=== PATIENT | female | born 1940 | race Caucasian/White ===

== ENCOUNTER → 2016-06-28 | Outpatient (CLI) | payer OTHER, MEDICARE ==
[~2016-06-28] MED LIST: ADVIN25/60 INH; ALBINS/ INH; ALEN70TA4 PO; AMLO-110 PO; AMLO2.5T2 PO; ASPI325T39 PO; ATRINS NEB; CARV25TA PO; CEFU500T16 PO; CHOL1000 PO; CHOL20005 PO; CIPR-255 PO; CLB100 PO; DICY10CA55 PO; DICY20TA35 PO; DOCU100C PO; DOXY100T PO; ENOX40IN SQ; FERR1TAB28 PO; FERR325T PO; FERR325T51 PO; FLVHFA220 INH; FURO-85 PO; HYDR-3126 PO; HYDR4TAB2 PO; HYDR4TAB78 PO; LEVO100T PO; LEVO112T2 PO; LISI10TA PO; LORA-741 PO; LSN40 PO; LVNIS40 SQ; MECL1TAB42 PO; MRLP17 PO; MRP25 PO; MRPSR30 PO; MULT-589 PO; NCDT21X TD; NF656 TD; NYSS5 PO; NYST100010 TOP; ONDA4TAB10 SL; ONDA8TAB7 PO; ORTHO WARFARIN NOMOGRAM; PANT40TA PO; POLY335019 PO; PRED20TA2 PO; PRVHFAIN INH; RANI300T2 PO; SERT50TA PO; SIMV20TA2 PO; SNK PO; WARF10TA4 PO; [UNRECOGNIZED DRUG - CODE] PO; [UNRECOGNIZED DRUG - CODE] TOP
[2016-06-28 13:53] LABS: ESTIMATED AVERAGE GLUCOSE 120 mg/dl; HA1C FLAG Normal (Normal)
[2016-06-28 14:02] LABS: ALT/SGPT 17 U/L (12-78); BLOOD UREA NITROGEN 7 mg/dl (7-18); BUN/CREATININE RATIO 10.7 (10-20); CALCIUM 8.9 mg/dl (8.5-10.1); CARBON DIOXIDE 32 mmol/L (21-32); CHLORIDE 100 mmol/L (98-107); CHOLESTEROL 166 mg/dl (0-200); CREATININE 0.67 mg/dl (0.60-1.20); GLUCOSE 108 mg/dl (70-99); POTASSIUM 4.3 mmol/L (3.5-5.1); SODIUM 137 mmol/L (136-145); TRIGLYCERIDES 125 mg/dl (0-150); VERY LOW DENSITY LIPOPROT CALC 25 mg/dl
[2016-06-28 14:12] LABS: ALB/GLOB RATIO 0.7 (0.9-2); ALKALINE PHOSPHATASE 89 U/L (45-117); AST/SGOT 20 U/L (15-37); CHOLESTEROL/HDL RATIO 4.7; HDL CHOLESTEROL 35 mg/dl; LDL CHOLESTEROL CALCULATED 106 mg/dl
== END | disposition home or self-care (01) ==
LOC: C.LABPBG 11:43
PROVIDERS: ATTEND Family Medicine
DX: R74.8 Abnormal levels of other serum enzymes (principal); E11.9 Type 2 diabetes mellitus without complications

== ENCOUNTER 2016-07-07 06:56 | Inpatient (IN) | payer OTHER, MEDICARE ==
[~2016-07-07] VITALS: Ht 162.6 cm; Wt 96.0 kg
[2016-07-07] VITALS (10 sets, daily range): BP systolic 116–135; BP diastolic 69–78; PULSE 53–74; TEMP 36.7–37; O2SAT 93–96; Ht 162.6 cm; Wt 96.0 kg
[~2016-07-07 06:56] MED LIST changes: -ADVIN25/60 INH; -ALBINS/ INH; -ALEN70TA4 PO; -AMLO-110 PO; -CEFU500T16 PO; -CHOL20005 PO; -CIPR-255 PO; -DICY10CA55 PO; -DOXY100T PO; -ENOX40IN SQ; -FERR1TAB28 PO; -FERR325T PO; -FLVHFA220 INH; -FURO-85 PO; -HYDR4TAB78 PO; -LEVO112T2 PO; -LISI10TA PO; -LORA-741 PO; -LSN40 PO; -LVNIS40 SQ; -MECL1TAB42 PO; -MRLP17 PO; -MRP25 PO; -MRPSR30 PO; -MULT-589 PO; -NCDT21X TD; -NF656 TD; -NYSS5 PO; -NYST100010 TOP; -ONDA4TAB10 SL; -ORTHO WARFARIN NOMOGRAM; -POLY335019 PO; -PRED20TA2 PO; -PRVHFAIN INH; -RANI300T2 PO; -SNK PO; -WARF10TA4 PO; -[UNRECOGNIZED DRUG - CODE] PO; -[UNRECOGNIZED DRUG - CODE] TOP
[2016-07-07] MEDS ORDERED: ONDANSETRON INJ 2 MG/ML 2 ML VIAL IV STA ×2 (07:10→07:49)
[2016-07-07] MEDS: MoRPHine SULFATE 4 MG/ML 1 ML CARP\\VIAL IV PRN ×2 (07:12→07:30)
[2016-07-07 07:27] LABS: BASO % 0.3 %; BASO ABS # 0.04 K/uL (0-0.2); COMPLETE YES; HEMATOCRIT 46.9 % (37-47); IG% 1.2 %; LYMPH % 10.6 %; LYMPH ABS # 1.67 K/uL (1.2-3.4); MEAN CELL VOLUME 96.5 fL (80-100); MEAN CORPUSCULAR HEMOGLOBIN 33.3 pg (25-34); MEAN CORPUSCULAR HGB CONC 34.5 g/dl (32-36); MEAN PLATELET VOLUME 10.2 fL (7.4-10.4); MONO % 9.7 %; NEUT % 77.2 %; PLATELET COUNT 198 K/uL (130-400); RED BLOOD COUNT 4.86 M/uL (4.2-5.4); WHITE BLOOD COUNT 15.71 K/uL (4.8-10.8)
[2016-07-07 07:39] LABS: INR 1.1 (0.9-1.1); PROTHROMBIN TIME (PATIENT) 12.2 SECONDS (9.0-12.0)
[2016-07-07 07:48] LABS: BUN/CREATININE RATIO 15.1 (10-20); CALCIUM 8.5 mg/dl (8.5-10.1); CREATININE 0.65 mg/dl (0.60-1.20); POTASSIUM 3.6 mmol/L (3.5-5.1)
[2016-07-07] MEDS: HYDROmorphone INJ 0.5 MG/0.5 ML SYR IV PRN ×6 (07:56→13:42)
[2016-07-07 08:34] LABS: URINE APPEARANCE CLEAR (CLEAR); URINE BILIRUBIN NEG (NEG); URINE COLOR YELLOW; URINE NITRITE NEG (NEG); URINE PH 6.5 (4.5-7.5); URINE SPECIFIC GRAVITY 1.012 (1.000-1.030); UROBILINOGEN NEG (NEG)
[2016-07-07 08:47] LABS: MANUAL MICROSCOPIC REQUIRED? NO; REVIEW REQ? NO
--- NOTE | 2016-07-07 09:24 | DIAGNOSTIC IMAGING REPORT ---
SINGLE VIEW CHEST CLINICAL HISTORY: Trauma. FINDINGS: An AP, portable, supine chest radiograph is compared to study dated 09/07/2013 and correlated with chest CT dated 06/30/2015. The examination is severely degraded by portable technique and patient rotation. The heart is enlarged and there is atherosclerotic calcification of the thoracic aorta.. Pulmonary vasculature is noncongested. Emphysema and chronic interstitial thickening are similar to previous. There is volume loss in the right lung, possibly related to previous surgical resection. No airspace consolidation or large pleural effusion is identified. No pneumothorax is seen. The skeletal structures are osteopenic. There is chronic appearing posttraumatic deformity of the right clavicle. Degenerative change is noted throughout the thoracic spine. IMPRESSION: 1. Cardiomegaly without radiographic evidence of congestive failure. 2. Emphysema. The lungs appear clear. Electronically signed by: Emeterio Garg M.D. 07/07/2016 9:22 AM Dictated Date/Time: 07/07/2016 9:18 AM
[2016-07-07] MEDS ORDERED: LISI10TA PO (09:29)
--- NOTE | 2016-07-07 09:30 | DIAGNOSTIC IMAGING REPORT ---
LEFT HIP UNILATERAL 2 VIEWS CLINICAL HISTORY: Fall, hip pain trauma. Pain. COMPARISON: None. DISCUSSION: Limited study due to patient body habitus. fracture base normal neck at the juncture with the intertrochanteric intertrochanteric region. No evidence of dislocation. No evidence for acetabular protrusion. There is no evidence for soft tissue swelling. IMPRESSION: Fracture base femoral neck at the juncture with the intertrochanteric region. No evidence of dislocation. Electronically signed by: Santiago Handy M.D. 07/07/2016 9:29 AM Dictated Date/Time: 07/07/2016 9:28 AM
[2016-07-07] MEDS ORDERED: MECL1TAB42 PO (10:07)
[2016-07-07] MEDS ORDERED: MRPSR30 PO (10:07)
[2016-07-07] MEDS ORDERED: DOXY100T PO (10:07)
[2016-07-07] MEDS ORDERED: RANI300T2 PO (10:07)
[2016-07-07] MEDS ORDERED: FLVHFA220 INH (10:07)
[2016-07-07] MEDS ORDERED: PRED20TA2 PO (10:07)
[2016-07-07] MEDS ORDERED: HYDR-3126 PO (10:07)
[2016-07-07] MEDS ORDERED: CIPR-255 PO (10:07)
[2016-07-07] MEDS ORDERED: CEFU500T16 PO (10:07)
[2016-07-07] MEDS ORDERED: HYDR4TAB78 PO (10:07)
[2016-07-07] MEDS ORDERED: ADVIN25/60 INH (10:07)
[2016-07-07] MEDS ORDERED: LEVO112T2 PO (10:35)
[2016-07-07] MEDS ORDERED: LORA-741 PO (10:35)
[2016-07-07] MEDS ORDERED: [UNRECOGNIZED DRUG - CODE] PO (10:35)
[2016-07-07] MEDS ORDERED: ONDA4TAB10 SL (10:35)
[2016-07-07] MEDS ORDERED: AMLO-110 PO (10:35)
[2016-07-07] MEDS ORDERED: SERT50TA PO (10:35)
[2016-07-07] MEDS ORDERED: ALEN70TA4 PO (10:35)
[2016-07-07] MEDS ORDERED: FERR1TAB28 PO (10:35)
[2016-07-07] MEDS ORDERED: SODIUM CHLORIDE 0.45% 1000ML 1,000 ML IV SCH (10:35)
[2016-07-07] MEDS ORDERED: LSN40 PO (10:35)
[2016-07-07] MEDS ORDERED: DICY10CA55 PO (10:35)
[2016-07-07] MEDS ORDERED: FURO-85 PO (10:35)
[2016-07-07] MEDS ORDERED: ALBINS/ INH (10:35)
[2016-07-07] MEDS ORDERED: MoRPHine SULFATE 4 MG/ML 1 ML CARP\\VIAL IV PRN (10:45)
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
[2016-07-07] MEDS ORDERED: MAGNESIUM HYDROXIDE SUSP 30 ML UDC PO PRN (11:15)
[2016-07-07] MEDS ORDERED: ALUMINUM/MAGNESIUM/SIMETH (MAALOX MAX) 30 ML UDC PO PRN ×2 (11:15→13:00)
[2016-07-07] MEDS ORDERED: ACETAMINOPHEN 325 MG TAB PO PRN ×2 (11:15→13:00)
[2016-07-07] MEDS ORDERED: POLYETHYLENE (MIRALAX) 17 GM PACK PO PRN (11:15)
[2016-07-07] MEDS ORDERED: BUPIVACAINE 0.5 % 5 MG/1 ML PF 10ML VIAL ONE (11:21)
[2016-07-07] MEDS ORDERED: FERR1TAB62 PO (11:26)
[2016-07-07 11:29] LABS: CALCIUM 8.7 mg/dl (8.5-10.1); CREATININE 0.72 mg/dl (0.60-1.20)
[2016-07-07] MEDS ORDERED: CEFAZOLIN IV 2,000 MG/60 ML D5W IV ONE (11:29)
[2016-07-07] MEDS ORDERED: DEXAMETHASONE INJ 8 MG in SYRINGE 0 ML IV ONE (11:30)
[2016-07-07] MEDS ORDERED: MECLIZINE HCL 12.5 MG TAB PO PRN (11:30)
[2016-07-07] MEDS ORDERED: ALBUTEROL 0.083% NEBU SOLN 3 ML VIAL INH PRN (11:30)
[2016-07-07] MEDS ORDERED: hydrOXYzine HCL 25 MG TAB PO PRN (11:30)
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
[2016-07-07] MEDS ORDERED: MIDAZOLAM HCL 1 MG/ML 2ML VIAL ONE (11:52)
[2016-07-07] MEDS ORDERED: FENTANYL CITRATE INJ 50 MCG/1 ML 2 ML VIAL ONE (11:52)
[2016-07-07] MEDS ORDERED: ONDANSETRON INJ 2 MG/ML 2 ML VIAL IV PRN ×2 (12:30→13:00)
[2016-07-07] MEDS ORDERED: ATROPINE SULFATE 0.1 MG/ML 5ML SYR IV PRN (12:30)
[2016-07-07] MEDS ORDERED: ALBUT/IPRATROP 3MG/0.5MG NEB 3 ML VIAL INH PRN (12:30)
[2016-07-07] MEDS ORDERED: HydrALAZINE HCL 20 MG/ML VIAL IV. PRN (12:30)
[2016-07-07] MEDS ORDERED: EpHEDrine SULFATE INJ 50 MG/ML AMP IV PRN (12:30)
--- NOTE | 2016-07-07 12:32 | History and Physical ---
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 The patient states that she did not have any power this morning and and that her room was completely dark. As she could not see, she tripped on something and then fell. She denies any dizziness or lightheadedness prior to the fall and denies any head trauma. She denies any loss of consciousness. The patient reports experiencing nausea and vomiting immediately after the fall with the onset of her sharp pain. The patient complains of a 10/10 sharp pain in her left groin and hip that is worse with movement. She states that she also occasionally has spasms which exacerbates the pain. The patient was recently diagnosed with community-acquired pneumonia and just completed a course of prednisone yesterday. The patient denies fevers, chills, sweats, chest pain, palpitations, claudication, cough, wheezing, shortness of breath, abdominal pain , dysuria, hematuria, urinary retention, paralysis, weakness, numbness and tingling. 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 Status: Chronic (2) DIAB LUCY WO COMPL, TYPE II OR UNSPEC TYPE, NOT UNCNTRLD Status: Chronic (3) DIVERTICULOSIS COLON (W/O MENT OF HEMORRHAGE) Status: Chronic (4) HYPERLIPIDEMIA NEC/NOS Status: Chronic (5) HYPERTENSION NOS Status: Chronic (6) Hysterectomy Status: Resolved Anxiety and depression GERD Hypothyroidism Irritable bowel syndrome Family History Diabetes mellitus Emphysema FHx: gallbladder disease FHx: heart disease FHx: hypertension Stroke Social History Smoking Status: Current Every Day Smoker (1 pdd) Smokeless Tobacco Use: No Alcohol Use: none Drug Use: none Marital Status: Housing status: lives with significant other Occupational Status: retired Immunizations History of Influenza Vaccine: No History of Tetanus Vaccine?: UNKNOWN History of Pneumococcal: Yes History of Hepatitis B Vaccine: No Multi-Drug Resistant Organisms History of MDRO: No Allergies Coded Allergies: Cortisone (Verified Adverse Reaction, Intermediate, "WEIRD FEELING, ) Home Medications Scheduled Alendronate Sodium (Fosamax), 70 MG PO WK Amlodipine (Norvasc), 5 MG PO DAILY Aspirin (Aspirin Ec), 325 MG PO QAM Carvedilol (Coreg), 25 MG PO BID Cefuroxime Axetil (Ceftin), 500 MG PO BID Celecoxib (Celebrex), 1 CAP PO BID Cholecalciferol (Vitamin D3), 2 TAB PO QAM Ciprofloxacin Hcl (Cipro), 500 MG PO BID Docusate Sodium (Stool Softener), 200 MG PO HS Ferrous Sulfate (Ferrous Sulfate), 325 MG PO TID Fluticasone Propionate (Flovent Hfa), 2 PUFFS INH BID Levothyroxine Sodium (Synthroid), 112 MCG PO DAILY Lisinopril (Lisinopril), 1 TAB PO DAILY Morphine Sulfate (Morphine Sulfate ER), 1 TAB PO HS Pantoprazole (Protonix), 40 MG PO QAM Sertraline Hcl (Zoloft), 50 MG PO DAILY Scheduled PRN Albuterol Sulf (Proventil 0.083% 2.5MG/3ML), 2.5 MG INH QID PRN for Wheezing Furosemide (Lasix), 20 MG PO DAILY PRN for . Guaifenesin/Dextromethorphan (Guaifenesin-Dm 100-10 mg/5Ml), 10 ML PO Q4 PRN for Cough Hydromorphone Hcl (Dilaudid), 4 MG PO Q4H PRN for Pain Hydroxyzine Hcl (Atarax), 50 MG PO TID PRN for Itching Lorazepam (Ativan), 0.5 MG PO Q12 PRN for Anxiety Meclizine Hcl (Meclizine Hcl), 1 TAB PO TID PRN for Dizziness or Vertigo Ondasetron Odt (Zofran Odt), 4 MG SL Q8 PRN for Nausea Review of Systems Constitutional: No chills, No fever, No sweats Eyes: No diplopia, No eye pain, No worsening of vision ENT: No hearing loss, No sore throat, No trouble swallowing Respiratory: No cough, No shortness of breath, No wheezing Cardiovascular: No chest pain, No claudication, No palpitations Abdomen: + nausea, + vomiting, No pain Musculoskeletal: + joint pain (L hip), + muscle pain (L groin), No calf pain, No swelling Genitourinary - Female: No dysuria, No hematuria, No urinary retention Neurologic: No numbness/tingling, No paralysis, No weakness Integumentary: No color change, No itch, No rash Physical Exam Vital Signs Date Time Temp Pulse Resp B/P Pulse Ox O2 Delivery O2 Flow Rate FiO2 07/07/16 11:35 36.8 53 20 136/75 92 Room Air 3 07/07/16 11:11 156/78 07/07/16 09:57 75 07/07/16 09:50 94 Nasal Cannula 3.0 07/07/16 09:46 48 14 116/59 94 Nasal Cannula 3.0 07/07/16 08:11 95 Nasal Cannula 3.0 07/07/16 08:00 50 12 131/68 95 Nasal Cannula 07/07/16 07:39 57 07/07/16 07:02 36.5 52 18 108/68 90 Room Air General Appearance: WD/WN, + mild distress (patient appears uncomfortable), + obese Head: normocephalic, atraumatic Eyes: normal inspection, PERRL, EOMI ENT: normal ENT inspection, hearing grossly normal, + pertinent finding ( evidence of oral candidiasis) Neck: supple, no JVD, trachea midline Respiratory/Chest: lungs clear, normal breath sounds, no respiratory distress Cardiovascular: no gallop, no murmur, + bradycardia (regular rhythm) Abdomen/GI: normal bowel sounds, non tender, soft Extremities/Musculoskelatal: normal inspection, no calf tenderness, no pedal edema, + pertinent finding (Limited range of motion of left lower extremity secondary to pain. Left inguinal area markedly tender to palpation ) Neurologic/Psych: alert, normal mood/affect, oriented x 3 Skin: normal color, warm/dry, no rash Diagnostics Laboratory Results Results Past 24 Hours Test 07/07/16 07:05 07/07/16 08:10 07/07/16 11:00 Range/Units White Blood Count 15.71 4.8-10.8 K/uL Red Blood Count 4.86 4.2-5.4 M/uL Hemoglobin 16.2 12.0-16.0 g/dL Hematocrit 46.9 37-47 % Mean Corpuscular Volume 96.5 80-100 fL Mean Corpuscular Hemoglobin 33.3 25-34 pg Mean Corpuscular Hemoglobin Concent 34.5 32-36 g/dl Platelet Count 198 130-400 K/uL Mean Platelet Volume 10.2 7.4-10.4 fL Neutrophils (%) (Auto) 77.2 % Lymphocytes (%) (Auto) 10.6 % Monocytes (%) (Auto) 9.7 % Eosinophils (%) (Auto) 1.0 % Basophils (%) (Auto) 0.3 % Neutrophils # (Auto) 12.14 1.4-6.5 K/uL Lymphocytes # (Auto) 1.67 1.2-3.4 K/uL Monocytes # (Auto) 1.52 0.11-0.59 K/uL Eosinophils # (Auto) 0.15 0-0.5 K/uL Basophils # (Auto) 0.04 0-0.2 K/uL RDW Standard Deviation 43.8 36.4-46.3 fL RDW Coefficient of Variation 12.5 11.5-14.5 % Immature Granulocyte % (Auto) 1.2 % Immature Granulocyte # (Auto) 0.19 0.00-0.02 K/uL Prothrombin Time 12.2 9.0-12.0 SECONDS Prothromb Time International Ratio 1.1 0.9-1.1 Activated Partial Thromboplast Time 26.3 21.0-31.0 SECONDS Partial Thromboplastin Ratio 1.0 Sodium Level 136 136-145 mmol/L Potassium Level 3.6 3.5-5.1 mmol/L Chloride Level 99 98-107 mmol/L Carbon Dioxide Level 29 21-32 mmol/L Anion Gap 8.0 3-11 mmol/L Blood Urea Nitrogen 10 7-18 mg/dl Creatinine 0.65 0.72 0.60-1.20 mg/dl Est Creatinine Clear Calc Drug Dose 86.7 78.3 ml/min Estimated GFR () 102.1 96.3 Estimated GFR (Non- 88.1 83.1 BUN/Creatinine Ratio 15.1 10-20 Random Glucose 126 70-99 mg/dl Calcium Level 8.5 8.7 8.5-10.1 mg/dl Urine Color YELLOW Urine Appearance CLEAR CLEAR Urine pH 6.5 4.5-7.5 Urine Specific [place] 1.012 1.000-1.030 Urine Protein NEG NEG Urine Glucose (UA) NEG NEG Urine Ketones NEG NEG Urine Occult Blood NEG NEG Urine Nitrite NEG NEG Urine Bilirubin NEG NEG Urine Urobilinogen NEG NEG Urine Leukocyte Esterase NEG NEG 25-Hydroxy Vitamin D Total 29.6 30-100 ng/ml Microbiology Results 07/07/16 Urine Culture, Received Pending Diagnostic Radiology Reviewed the following studies and agree with interpretation as follows: Patient Name: RACHEL ALVARADO Unit Number: [id number] Dictated: 07/07/16927 Transcribed: 07/07/16927 MS Printed Date/Time: [~ rep prt dt]/[~ rep prt tm] [~ rep ct labl] - [~ rep ct ivnm] [facility] [place] [address] Dictated: 07/07/16927 Transcribed: 07/07/16927 MS Printed Date/Time: [~ rep prt dt]/[~ rep prt tm] [~ rep ct labl] - [~ rep ct ivnm] Patient: RACHEL ALVARADO Address1: [address] [place] [address] Rec: [id number] Address2: [place] [address] Acct ID: [id number] [facility] Zip: [place] [address] Date: 1940 Sex: F Room/Bed: Ref Phy: Courtney Jules DO SC: MERISSA Att Phy: Report #: [id number] Isa Phy: Courtney Jules DO Test: HIP Admit Phy: Animal Control Specialist: DONNIE Interpreting Phy: Santiago Handy M.D. Diagnosis: FALL/LEG PAIN Ordering Phy: Madhu Adorno MD Service Date: 07/07/16 Admit Date: 07/07/16 MNE: [id number] CONF: DICTATED BY: Santiago Handy M.D.]] CC: Madhu Adorno MD Ricotta, Cara M., Endcc: [~ rep ct add3]] LEFT HIP UNILATERAL 2 VIEWS CLINICAL HISTORY: Fall, hip pain trauma. Pain. COMPARISON: None. DISCUSSION: Limited study due to patient body habitus. fracture base normal neck at the juncture with the intertrochanteric intertrochanteric region. No evidence of dislocation. No evidence for acetabular protrusion. There is no evidence for soft tissue swelling. IMPRESSION: Fracture base femoral neck at the juncture with the intertrochanteric region. No evidence of dislocation. Electronically signed by: Santiago Handy M.D. 07/07/2016 9:29 AM Dictated Date/Time: 07/07/2016 9:28 AM The status of this report is Signed. Draft = Not yet reviewed or approved by Radiologist. Signed = Reviewed and approved by Radiologist. <AttendingPhy></AttendingPhy> <FamilyPhy>Courtney Jules DO</FamilyPhy> < PrimaryPhy>Courtney Jules DO</PrimaryPhy> <UnitNumber>[id number]</UnitNumber > <VisitNumber>[id number]</VisitNumber> <PatientName>RACHEL ALVARADO</PatientName > <DateOfBirth>1940</DateOfBirth> <Location>C.EDB</Location> <ServiceDate> 07/07/16</ServiceDate> <MNE>ESINDI</MNE> <OrderingPhy>Madhu Adorno MD</ OrderingPhy> <OrderingPhyMNE>f rep ord dr dubois</OrderingPhyMNE> <DictatingPhyMNE> f rep dict dr dubois</DictatingPhyMNE> <CCListMNE>f rep ct silvino</CCListMNE> < AdmittingPhyMNE>f pt admit dr dubois</AdmittingPhyMNE> <AttendingPhyMNE>f pt attend dr dubois</AttendingPhyMNE> <ConsultingPhyMNE>f pt consult dr dubois</ConsultingPhyMNE> <FamilyPhyMNE>f pt fam dr dubois</FamilyPhyMNE> <OtherPhyMNE>f pt other dr dubois</OtherPhyMNE> < PrimaryPhyMNE>f pt prim care dr dubois</PrimaryPhyMNE> <ReferringPhyMNE>f pt referring dr dubois</ReferringPhyMNE> Patient Name: RACHEL ALVARADO Unit Number: [id number] Dictated: 07/07/16917 Transcribed: 07/07/16917 EV Printed Date/Time: [~ rep prt dt]/[~ rep prt tm] [~ rep ct labl] - [~ rep ct ivnm] [facility] [place] [address] Dictated: 07/07/16917 Transcribed: 07/07/16917 EV Printed Date/Time: [~ rep prt dt]/[~ rep prt tm] [~ rep ct labl] - [~ rep ct ivnm] Patient: RACHEL ALVARADO Address1: [address] [facility] Rec: [id number] Address2: [facility] [address] Acct ID: [id number] [facility] Zip: [place] [address] Date: 1940 Sex: F Room/Bed: Ref Phy: Courtney Jules DO SC: CNarcisoEDB Att Phy: Report #: [id number] Isa Phy: Courtney Jules DO Test: CXR1P Admit Phy: Animal Control Specialist: DONNIE Interpreting Phy: Emeterio Garg M.D. Diagnosis: FALL/LEG PAIN Ordering Phy: Madhu Adorno MD Service Date: 07/07/16 Admit Date: 07/07/16 MNE: PWRSCRIBE CONF: DICTATED BY: Emeterio Garg M.D.]] CC: Madhu Adorno MD Ricotta, Cara M., Endcc: [~ rep ct add3]] SINGLE VIEW CHEST CLINICAL HISTORY: Trauma. FINDINGS: An AP, portable, supine chest radiograph is compared to study dated 09/07/2013 and correlated with chest CT dated 06/30/2015. The examination is severely degraded by portable technique and patient rotation. The heart is enlarged and there is atherosclerotic calcification of the thoracic aorta.. Pulmonary vasculature is noncongested. Emphysema and chronic interstitial thickening are similar to previous. There is volume loss in the right lung, possibly related to previous surgical resection. No airspace consolidation or large pleural effusion is identified. No pneumothorax is seen. The skeletal structures are osteopenic. There is chronic appearing posttraumatic deformity of the right clavicle. Degenerative change is noted throughout the thoracic spine. IMPRESSION: 1. Cardiomegaly without radiographic evidence of congestive failure. 2. Emphysema. The lungs appear clear. Electronically signed by: Emeterio Garg M.D. 07/07/2016 9:22 AM Dictated Date/Time: 07/07/2016 9:18 AM The status of this report is Signed. Draft = Not yet reviewed or approved by Radiologist. Signed = Reviewed and approved by Radiologist. <AttendingPhy></AttendingPhy> <FamilyPhy>Courtney Jules, DO</FamilyPhy> < PrimaryPhy>Courtney Jules, DO</PrimaryPhy> <UnitNumber>[id number]</UnitNumber > <VisitNumber>[id number]</VisitNumber> <PatientName>RACHEL ALVARADO</PatientName > <DateOfBirth>1940</DateOfBirth> <Location>C.EDB</Location> <ServiceDate> 07/07/16</ServiceDate> <MNE>ESINDI</MNE> <OrderingPhy>Madhu Adorno MD</ OrderingPhy> <OrderingPhyMNE>f rep ord dr dubois</OrderingPhyMNE> <DictatingPhyMNE> f rep dict dr dubois</DictatingPhyMNE> <CCListMNE>f rep ct silvino</CCListMNE> < AdmittingPhyMNE>f pt admit dr dubois</AdmittingPhyMNE> <AttendingPhyMNE>f pt attend dr dubois</AttendingPhyMNE> <ConsultingPhyMNE>f pt consult dr dubois</ConsultingPhyMNE> <FamilyPhyMNE>f pt fam dr dubois</FamilyPhyMNE> <OtherPhyMNE>f pt other dr dubois</OtherPhyMNE> < PrimaryPhyMNE>f pt prim care dr dubois</PrimaryPhyMNE> <ReferringPhyMNE>f pt referring dr dubois</ReferringPhyMNE> EKG Reviewed EKG and agree with interpretation as follows: 50 bpm, sinus bradycardia Impression Assessment and Plan 75 y/o female with a history of HTN, HLD, hypothyroidism, anxiety/depression, GERD, IBS, 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 Patient tripped in the dark and fell. No head trauma. Left hip x-ray shows fracture at the base of the femoral neck. Chest x-ray no acute disease. EKG no ischemic changes. Patient had nausea and vomiting, controlled with Zofran. Elevated white blood cell count 15.71, otherwise grossly unremarkable. Patient has not yet eaten or taken any of her morning meds. [facility] orthopedics consulted by ED physician , will take to OR today. Left hip fracture following a mechanical fall -Admit to MedSurg -No significant cardiac history. EKG and CXR grossly normal. Patient is acceptable risk for surgery today -NPO -Orthopedics consulted. Dr. Steele taking pt to OR today. -Pain control ordered by orthopedics -Recent prednisone use: Patient will be given Decadron 8 mg IV 1 prior to surgery for stress dose steroids -PT, OT for after surgery Oral candidiasis -Start nystatin 5 ml PO QID x 7 days Hypertension--stable -Continue amlodipine 5 mg PO qd and carvedilol 25 mg PO BID -Hold lisinopril for now until renal function is checked and stable after surgery -Cover with hydralazine 10 mg IV q6h prn SBP >180 Hypothyroidism -Continue Synthroid 112 g PO qd Anxiety depression -Continue Zoloft 50 mg PO qd, Vistaril 50 mg PO TID prn anxiety, and Ativan 0.5 mg PO BID prn anxiety GERD -Continue Protonix 40 mg PO qd IBS -Continue Bentyl 10 mg PO BID Diabetes mellitus type 2--last HgbA1c checked on 06/28/16 was 5.8. Patient is not taking any medications for this and is diet controlled -Check daily glucose with PRP for now. If elevated, will check BSGs before meals and bedtime with insulin sliding scale Osteoporosis -Continue Fosamax 70 mg PO weekly. Patient takes on Sundays. DVT prophylaxis -Hold off on chemical prophylaxis due to surgery. Aspirin held. -TIKA escalante and SCDs Code Status -Level I, FULL RESUSCITATION STATUS This chart was completed in part utilizing [employer] Speech Voice Recognition software. Attempts were made to minimize the grammatical errors, random word insertions, pronoun errors and incomplete sentences. Any formal questions or concerns about the content, text or information contained within the body of this dictation should be directly addressed to the provider for clarification. Level of Care Med/Surg Advanced Directives Existing Living Will: No Existing Power of Subscription Clerk: No Resuscitation Status FULL RESUSCITATION VTE Prophylaxis VTE Risk Assessment Done? Y/N: Yes Risk Level: High Given or contraindicated: T.ETiffani Stockings, SCD's Note Attending Admission Note & Attestation: Pt seen/examined, chart reviewed, and care plan d/w ENRICO Shook. I agree w/ the olmos components of her admission documentation. 75yo female with h/o recent pneumonia, cirrhosis 2nd to SANTOS, T2DM diet- controlled, and HTN presenting with mechanical fall leading to left hip fracture. At time of presentation there were no metabolic or infectious insults identified that could have led to her fall. She was taken to the OR today by Dr. Steele and underwent ORIF. I saw her post-op on the orthopedic floor where she was resting comfortably. Reported feeling "sleepy" and with no appetite. Otherwise denied chest pain, sob, or abd pain. PMH, PSH, allergies, meds, sochx, famhx, ros - reviewed VSS O2 sats nl afebrile gen - nad neck - no JVD heart - RRR, s1, s2, 1/6 BRITTANY LSB lungs - CTA b/l, minimal dry rales bases abd - soft, spleen palpable, liver palpable, BS+, ND ext - mild edema left ankle, none on right, pulses 2+ b/l, large dressing in place over left hip labs - WBC count elevated otherwise normal BMP u/a wnl cxr wnl ekg wnl A/P: 1. fall with subsequent left hip Fx, s/p ORIF 2. cirrhosis 2nd to SANTOS 3. HTN 4. recent pneumonia and apparent use of 2 rounds of steroids? -received stress dose steroids pre-op today other plans of care per Ms. Shook and orthopedics Riccardo Moseley MD
--- NOTE | 2016-07-07 12:46 | [facility] Post Operative Brief Note ---
Immediate Operative Summary Operative Date Jul 07, 2016. Pre-Operative Diagnosis Left Intertrochanteric Hip Fracture Post-Operative Diagnosis Left Intertrochanteric Hip Fracture Procedure(s) Performed Left Hip Open Reduction Internal Fixation for Intertrochanteric Fracture (Dynamic Hip Screw) Surgeon Dr. Steele Mining Speculator Surgeon(s) ENRICO Plata Estimated Blood Loss 100CC Findings 2 PART FX Fluids (cc crystalloids) 650CC Specimens none per surgeon Drains NONE Anesthesia GET Complication(s) None Disposition Recovery Room / PACU
[2016-07-07] MEDS ORDERED: HYDROmorphone INJ 2 MG/ML SYR/VIAL ONE (12:48)
[2016-07-07] MEDS ORDERED: D5W AND 1/2NSS + 20MEQ KCL 1,000 ML IV SCH (12:54)
--- NOTE | 2016-07-07 12:58 | DIAGNOSTIC IMAGING REPORT ---
LEFT HIP OR FILMS CLINICAL HISTORY: Left hip FXpostoperative evaluation COMPARISON STUDY: Same day FLUOROSCOPY TIME: 44 seconds. FINDINGS: Left hip pinning and compression plate placement. Alignment is anatomic. IMPRESSION: Anatomic alignment status post left hip pinning. Electronically signed by: Santiago Handy M.D. 07/07/2016 12:57 PM Dictated Date/Time: 07/07/2016 12:56 PM
[2016-07-07] MEDS ORDERED: MoRPHine SULFATE 2 MG/ML CARP IV PRN (13:00)
--- NOTE | 2016-07-07 13:00 | OPERATIVE REPORT ---
DATE OF OPERATION: 07/07/2016 PREOPERATIVE DIAGNOSIS: Intertrochanteric fracture, left hip. POSTOPERATIVE DIAGNOSIS: Same. OPERATION PERFORMED: Closed reduction internal fixation open surgery of intertrochanteric fracture of the left hip. SURGEON: Dr. Steele. RELATIONSHIP SPECIALIST: Sarthak Traore PA-C. No resident or fellow available. PERIOPERATIVE SITUATION: Medically cleared female with intractable multiple comorbidities including pulmonary and diabetes who fell and broke her hip. She was cleared for surgery by myself, anesthesia and internal medicine. At this point in time it is best to proceed with surgical treatment. All options were discussed with the patient and all complications discussed including . OPERATION: The patient appropriately identified, site verified, consent verified, 2 grams of Ancef confirmed as being given. The left lower extremity was prepped and draped in usual routine fashion after closed reduction was carried out using fracture table. She was then sterilely prepped and draped in usual routine fashion. A lateral approach to the proximal femur made. Sharp dissection carried through skin and femoral dissection down to the femur. Good exposure obtained. Using fluoroscopic control, a guide pin was passed and was centered in the head both on the AP and lateral with good depth of penetration. It was then drilled. It was then tapped. The 90 mm lag screw was then placed. A 4-hole 135 plate was then placed. It was then secured with 4 cortical screws varying in length from 36 to 40 mm with excellent purchase. The compression screw was then applied. The postop multiplane image revealed anatomic reduction. The wound was then irrigated and then closed using #1 Vicryl, 2-0 Vicryl and stainless steel clips. Appropriate dressing applied. Estimated blood loss 100 mL. Crystalloid 650 mL. She should be weightbearing to tolerance at this point in time based on the stability of the fracture and the anatomic fixation. Deep venous thrombosis prophylaxis per medicine. Placement per medicine. I attest to the content of the Intraoperative Record and any orders documented therein. Any exceptio ns are noted below.
[2016-07-07] MEDS ORDERED: EpHEDrine SULFATE 50MG/5ML SYR ONE (13:05)
[2016-07-07] MEDS ORDERED: DEXAMETHASONE SOD INJ 4 MG/ML VIAL ONE (13:05)
[2016-07-07] MEDS ORDERED: ONDANSETRON INJ 2 MG/ML 2 ML VIAL ONE (13:05)
[2016-07-07] MEDS ORDERED: LIDOCAINE HCL 2% 2 ML VIAL (20MG/ML) ONE (13:05)
[2016-07-07] MEDS ORDERED: NEOSTIGMINE METHYLSULFATE 5 MG/5 ML SYR ONE (13:05)
[2016-07-07] MEDS ORDERED: PROPOFOL IV EMULSION 10 MG/ML 20 ML VIAL IV ONE (13:05)
[2016-07-07] MEDS ORDERED: GLYCOPYRROLATE INJ 0.2 MG/ML VIAL ONE (13:05)
[2016-07-07] MEDS ORDERED: SUCCINYLCHOLINE 100MG/5ML SYR IV ONE (13:05)
[2016-07-07] MEDS ORDERED: ROCURONIUM BROMIDE 10 MG/ML 5 ML VIAL ONE (13:05)
[2016-07-07] MEDS: FENTANYL CITRATE INJ 50 MCG/1 ML 2 ML VIAL IV PRN ×4 (13:09→13:24)
--- NOTE | 2016-07-07 13:22 | [facility] Operative Report ---
Operative Report Operative Date Jul 07, 2016. Pre-Operative Diagnosis Left Intertrochanteric Hip Fracture Post-Operative Diagnosis Left hip fracture Procedure(s) Performed same Surgeon Dr. Steele Parcel Post Delivery Surgeon(s) ENRICO Plata Estimated Blood Loss 100CC Findings same Fluids 650CC Specimens none per surgeon Drains NONE Anesthesia GET Complication(s) None Disposition Recovery Room / PACU Indications sustained fall injury left hip, xrays obtained, surgery recommended, consents signed Description of Procedure taken to the OR, prepped and draped, I was present the entire case, please see Dr. Steele's op note for further findings I attest to the content of the Intraoperative Record and any orders documented therein. Any exceptions are noted below.
[2016-07-07] MEDS ORDERED: ERGOCALCIFEROL 50,000 INTER.UNIT CAP PO ONE ×2 (13:30→17:00)
--- NOTE | 2016-07-07 13:34 | Anesthesiology Progress Note ---
Anesthesia Post Op Note Date & Time Jul 07, 2016 at 13:32 Vital Signs Pain Intensity: 7.0 Vital Signs Past 12 Hours Date Time Temp Pulse Resp B/P Pulse Ox O2 Delivery O2 Flow Rate FiO2 07/07/16 13:12 74 12 96 Diffusion Mask 9.0 07/07/16 13:03 59 18 94 07/07/16 13:03 59 18 07/07/16 13:00 138/79 07/07/16 12:58 61 19 07/07/16 12:58 60 19 93 07/07/16 12:55 130/83 07/07/16 12:54 131/97 07/07/16 12:53 36.6 65 16 131/97 95 Mask 10 07/07/16 12:53 64 25 94 07/07/16 12:53 64 25 07/07/16 11:35 36.8 53 20 136/75 92 Room Air 3 07/07/16 11:11 156/78 07/07/16 09:57 75 07/07/16 09:50 94 Nasal Cannula 3.0 07/07/16 09:46 48 14 116/59 94 Nasal Cannula 3.0 07/07/16 08:11 95 Nasal Cannula 3.0 07/07/16 08:00 50 12 131/68 95 Nasal Cannula 07/07/16 07:39 57 07/07/16 07:02 36.5 52 18 108/68 90 Room Air Notes Mental Status: alert / awake / arousable, participated in evaluation Pt Amnestic to Procedure: Yes Nausea / Vomiting: adequately controlled Pain: improving with treatment Airway Patency, RR, SpO2: stable & adequate BP & HR: stable & adequate Hydration State: stable & adequate Anesthetic Complications: no major complications apparent Patient awake with improving pain on IV medications. Oxygen saturations in low 90's which was her baseline prior to going to the OR. She received a duoneb in PACU given her long standing smoking history with wheezes heard on exam and also 2/2 having had a general anesthetic. Patient at time of evaluation is on 4L NC oxygen with SpO2 of 93%.
[2016-07-07] MEDS: ONDANSETRON INJ 2 MG/ML 2 ML VIAL IV PRN ×2 (15:25→23:24)
[2016-07-07] MEDS: OXYCODONE HCL IR 5 MG TAB (IMMEDIATE RELEASE) PO PRN ×2 (15:48→20:05)
[2016-07-07] MEDS: POTASSIUM CHLORIDE INJ 10 MEQ in SODIUM CHLORIDE 0.9% 1000ML 1,000 ML IV SCH (15:50)
[2016-07-07] MEDS ORDERED: WARFARIN SOD 5 MG TAB PO ONE (16:00)
[2016-07-07] MEDS: NYSTATIN SUSP 500,000 U/5 ML UDC PO SCH ×2 (17:00→20:16)
[2016-07-07] MEDS: FERROUS SULFATE 325 MG TAB PO SCH (17:45)
[2016-07-07] MEDS ORDERED: FERROUS GLUCONATE 324 MG TAB PO SCH (17:45)
--- NOTE | 2016-07-07 18:54 | PROGRESS NOTE ---
DATE: 07/07/2016 Postop check status post open reduction and internal fixation of left intertrochanteric hip fracture. At this point, the patient denies any chest pain, shortness of breath, fever, nausea, vomiting or chills. She notes that she is not very hungry, just feels tired. Vital signs are stable. She is afebrile. Neurovascular check of femoral sciatic nerve is intact. Axial load of the leg does not produce any pain. Wound dressing clean, dry and intact. Laboratory work reveals that her sugars are reasonably well controlled. ASSESSMENT: Overall, doing reasonably well. Continue with pain management as she has chronic pain issues and needs to be careful about how that is managed. Can be weightbearing to tolerance on the left lower extremity with a walker. PT, OT ordered. Social service assessment. Coumadin now this evening, 5 mg.
[2016-07-07] MEDS: CEFAZOLIN IV 2,000 MG in DEXTROSE 5% 50ML 50 ML IV SCH (20:04)
[2016-07-07] MEDS: METOCLOPRAMIDE HCL INJ 5 MG/ML 2 ML VIAL IV PRN (20:07)
[2016-07-07] MEDS: CARVEDILOL 25 MG TAB PO SCH (20:15)
[2016-07-07] MEDS: FLUTICASONE HFA 220 MCG INHALER INH SCH (20:15)
[2016-07-07] MEDS: DOCUSATE SODIUM 100 MG CAP PO SCH (20:18)
[2016-07-07] MEDS: CeleBREX 100 MG CAP PO SCH (20:18)
[2016-07-07] MEDS: DICYCLOMINE HCL 10 MG CAP PO SCH (20:18)
[2016-07-07] MEDS ORDERED: DOCUSATE SODIUM 100 MG CAP PO SCH (21:00)
[2016-07-08] VITALS (8 sets, daily range): BP systolic 107–179; BP diastolic 57–89; PULSE 59–68; TEMP 36.9–37.2; O2SAT 92–95
[2016-07-08] MEDS: POTASSIUM CHLORIDE INJ 10 MEQ in SODIUM CHLORIDE 0.9% 1000ML 1,000 ML IV SCH (01:05)
[2016-07-08] MEDS: OXYCODONE HCL IR 5 MG TAB (IMMEDIATE RELEASE) PO PRN ×2 (01:10→05:08)
[2016-07-08] MEDS: CEFAZOLIN IV 2,000 MG in DEXTROSE 5% 50ML 50 ML IV SCH (03:51)
[2016-07-08] MEDS: LEVOTHYROXINE 112 MCG TAB PO SCH (05:09)
[2016-07-08] MEDS ORDERED: CEFAZOLIN IV 2,000 MG in DEXTROSE 5% 50ML 50 ML IV SCH (06:00)
[2016-07-08 06:28] LABS: INR 1.2 (0.9-1.1); PROTHROMBIN TIME (PATIENT) 12.8 SECONDS (9.0-12.0)
[2016-07-08 06:39] LABS: BASO % 0.3 %; BASO ABS # 0.04 K/uL (0-0.2); COMPLETE YES; EOS % 0.3 %; HEMATOCRIT 39.7 % (37-47); IG% 0.6 %; LYMPH ABS # 2.21 K/uL (1.2-3.4); MEAN CELL VOLUME 96.4 fL (80-100); MEAN CORPUSCULAR HEMOGLOBIN 32.8 pg (25-34); MEAN PLATELET VOLUME 10.4 fL (7.4-10.4); MONO % 11.7 %; NEUT % 73.1 %; PLATELET COUNT 109 K/uL (130-400); RED BLOOD COUNT 4.12 M/uL (4.2-5.4); WHITE BLOOD COUNT 15.79 K/uL (4.8-10.8)
[2016-07-08] MEDS: ONDANSETRON INJ 2 MG/ML 2 ML VIAL IV PRN ×2 (07:13→16:11)
[2016-07-08 07:21] LABS: BLOOD UREA NITROGEN 15 mg/dl (7-18); BUN/CREATININE RATIO 25.4 (10-20); CARBON DIOXIDE 27 mmol/L (21-32); CHLORIDE 103 mmol/L (98-107); CREATININE 0.58 mg/dl (0.60-1.20); GLUCOSE 116 mg/dl (70-99); SODIUM 136 mmol/L (136-145)
[2016-07-08] MEDS ORDERED: ACETAMINOPHEN IV 100 ML IV PRN (08:15)
--- NOTE | 2016-07-08 08:27 | Anesthesiology Progress Note ---
Anesthesia Post Op Note Date & Time Jul 08, 2016 at 08:27 Vital Signs Vital Signs Past 12 Hours Date Time Temp Pulse Resp B/P Pulse Ox O2 Delivery O2 Flow Rate FiO2 07/08/16 07:20 Nasal Cannula 3.0 07/08/16 06:52 37.0 59 16 136/72 95 Room Air 07/08/16 03:52 36.9 68 16 136/77 94 Nasal Cannula 3.0 07/07/16 23:20 Nasal Cannula 3.0 07/07/16 22:53 37.0 63 17 135/75 95 Nasal Cannula 3.0 07/07/16 20:41 36.9 62 17 125/72 95 Nasal Cannula 3.0 Notes Mental Status: alert / awake / arousable, participated in evaluation Pt Amnestic to Procedure: Yes Nausea / Vomiting: adequately controlled Pain: adequately controlled Airway Patency, RR, SpO2: stable & adequate BP & HR: stable & adequate Hydration State: stable & adequate Anesthetic Complications: no major complications apparent
[2016-07-08] MEDS ORDERED: LISINOPRIL 40 MG TAB PO ONE (08:30)
--- NOTE | 2016-07-08 08:32 | PROGRESS NOTE ---
DATE: 07/08/2016 DATE: 07/08/2016. Postop check status post left ORIF with hip fracture, intertrochanteric with DHS plate. At this point in time the patient has complaints of some vertigo and some nausea. Using some additional pain medication that she is not used to. Had a dose of [place] which probably escalated some of her complaints. In the past, she has used p.o. Dilaudid. She denies any chest pain, shortness of breath, fever or chills. Vital signs are stable. She is afebrile. Laboratory work reveals that her hematocrit stable at 39.7, her INR is 1.2 . She is well dehydrated with a BUN of 15 and a creatinine of 0.58. Her sugars are well controlled in the 130 range this morning. Wound dressing is changed. Appropriate drainage, nothing exuberant. Thigh is without any marked swelling. Dressing is changed and compressed. Neurovascular check both lower extremities within normal limits. Can move the leg easily without any fracture pain. Her only pain at this point in time is from the incision and from the muscle splitting to get to fixation of the bone. Abdomen soft, nontender. Upper extremities are fine. No other additional trauma identified by the patient this morning from her fall. ASSESSMENT: Status post open reduction and internal fixation left hip intertrochanteric fracture. Laboratory work is appropriate. She is well hydrated. Will Hep-Lock her IV. Encourage p.o. intake. Will encourage PT and OT. guest services manager is involved. She will need either rehab admission or SNF admission based on her comorbidities including vertigo, diabetes, hypertension, obesity and chronic back and leg pain from previous traumas. Of note, that she has been on chronic Dilaudid for pain management. Try to add Tylenol and 4 doses of Toradol to minimize her narcotic use and wean her Dilaudid down to 2 mg a day. She will be discharged per medicine. From orthopedic perspective can be discharged at any time. Follow up with us in 2 weeks.
[2016-07-08] MEDS: MULTIVITAMIN TAB PO SCH (09:00)
[2016-07-08] MEDS: DICYCLOMINE HCL 10 MG CAP PO SCH ×2 (09:00→21:14)
[2016-07-08] MEDS ORDERED: PANTOprazole SOD 40 MG TAB PO SCH (09:00)
[2016-07-08] MEDS: POLYETHYLENE (MIRALAX) 17 GM PACK PO SCH (09:00)
[2016-07-08] MEDS: NYSTATIN SUSP 500,000 U/5 ML UDC PO SCH ×4 (09:00→21:00)
[2016-07-08] MEDS: KETOROLAC TROMETHAMINE 15 MG/ML VIAL IV PRN (09:05)
[2016-07-08] MEDS: FERROUS SULFATE 325 MG TAB PO SCH ×4 (09:09→19:09)
[2016-07-08] MEDS: FLUTICASONE HFA 220 MCG INHALER INH SCH ×2 (09:10→21:12)
[2016-07-08] MEDS: PANTOprazole SOD 40 MG TAB PO SCH (09:11)
[2016-07-08] MEDS: CHOLECALCIFEROL 1000 INTER.UNIT TAB PO SCH (09:12)
[2016-07-08] MEDS: SERTRALINE HCL 50 MG TAB PO SCH (09:12)
[2016-07-08] MEDS: CeleBREX 100 MG CAP PO SCH ×2 (09:13→21:15)
[2016-07-08] MEDS: AMLODIPINE BESYLATE 5 MG TAB PO SCH (09:15)
[2016-07-08] MEDS: CARVEDILOL 25 MG TAB PO SCH ×2 (09:16→21:16)
[2016-07-08] MEDS: SENNA 8.6 MG TAB PO SCH (09:22)
[2016-07-08] MEDS: ENOXAPARIN 40 MG/0.4 ML SYR SQ SCH (11:09)
--- NOTE | 2016-07-08 11:30 | Hospitalist Progress Note ---
Hospitalist Progress Note Date of Service Jul 08, 2016. (Velia Shook ., PA-C) Subjective Pt evaluation today including: conversation w/ patient, physical exam, chart review, lab review, review of inpatient medication list Pain: 6/10 aching pain in L groin and hip PO Intake: Poor, little PO intake Voiding: reynolds catheter in place Patient reports feeling well overall. She states that her physical therapy session went well. The patient has not really eaten much after surgery, and she denies passing any gas. She's not had any bowel movements. A Reynolds catheter is in place. The patient currently rates her pain as a 6/10 aching pain in her left groin and lateral hip that is worse with movement or pressure. She states she had an episode of vertigo earlier today that resolved with meclizine. The patient also noted some nausea last night after surgery but did not vomit and was improved with Zofran. The patient states that she has been coughing up green sputum, similar to her recent pneumonia episode. The patient denies fevers, chills, sweats, chest pain, palpitations, claudication, cough, wheezing, shortness of breath, nausea, vomiting, abdominal pain, dysuria, hematuria, urinary retention, paralysis, weakness, numbness and tingling. Additional Comments: See HPI for pertinent positives and negatives. All other systems reviewed and negative. (Velia Shook ., PA-C) Objective Vital Signs Date Time Temp Pulse Resp B/P Pulse Ox O2 Delivery O2 Flow Rate FiO2 07/08/16 09:13 67 172/89 07/08/16 07:20 Nasal Cannula 2.0 07/08/16 06:52 37.0 59 16 136/72 95 Room Air 07/08/16 03:52 36.9 68 16 136/77 94 Nasal Cannula 3.0 07/07/16 23:20 Nasal Cannula 3.0 07/07/16 22:53 37.0 63 17 135/75 95 Nasal Cannula 3.0 07/07/16 20:41 36.9 62 17 125/72 95 Nasal Cannula 3.0 07/07/16 20:13 58 124/73 07/07/16 18:30 62 16 119/73 94 Nasal Cannula 3.0 07/07/16 16:23 36.8 57 16 116/76 95 Nasal Cannula 3.0 07/07/16 15:40 Nasal Cannula 3.0 07/07/16 15:20 36.7 59 17 132/78 95 Nasal Cannula 07/07/16 14:57 53 17 119/72 94 Nasal Cannula 3.0 07/07/16 14:15 93 Nasal Cannula 3.0 07/07/16 14:15 93 Nasal Cannula 2.0 07/07/16 14:15 36.9 55 16 122/69 93 Nasal Cannula 3.0 07/07/16 14:05 116/69 07/07/16 14:05 116/69 07/07/16 14:05 36.5 53 16 116/69 93 Nasal Cannula 3 07/07/16 14:04 53 15 07/07/16 14:04 53 15 93 07/07/16 14:04 53 15 93 07/07/16 14:04 53 15 07/07/16 14:01 121/66 07/07/16 14:01 121/66 07/07/16 13:59 54 16 07/07/16 13:59 54 16 07/07/16 13:59 54 16 93 07/07/16 13:59 54 16 93 07/07/16 13:56 139/73 07/07/16 13:56 139/73 07/07/16 13:54 53 10 92 07/07/16 13:54 53 10 07/07/16 13:54 53 10 92 07/07/16 13:54 53 10 07/07/16 13:51 112/68 07/07/16 13:51 112/68 07/07/16 13:49 53 17 07/07/16 13:49 52 17 91 07/07/16 13:49 52 17 91 07/07/16 13:49 53 17 07/07/16 13:46 127/72 07/07/16 13:46 127/72 07/07/16 13:44 56 15 07/07/16 13:44 56 15 92 07/07/16 13:44 56 15 07/07/16 13:44 56 15 92 07/07/16 13:40 123/70 07/07/16 13:40 123/70 07/07/16 13:39 54 11 07/07/16 13:39 54 11 92 07/07/16 13:39 54 11 07/07/16 13:39 54 11 92 07/07/16 13:35 116/70 07/07/16 13:35 116/70 07/07/16 13:34 58 16 91 07/07/16 13:34 53 16 07/07/16 13:34 58 16 91 07/07/16 13:34 53 16 07/07/16 13:31 130/67 07/07/16 13:31 130/67 07/07/16 13:29 65 12 92 07/07/16 13:29 54 12 07/07/16 13:29 65 12 92 07/07/16 13:29 54 12 07/07/16 13:25 141/80 07/07/16 13:25 141/80 07/07/16 13:24 57 15 95 07/07/16 13:24 56 15 07/07/16 13:24 57 15 95 07/07/16 13:24 56 15 07/07/16 13:20 140/76 07/07/16 13:20 140/76 07/07/16 13:19 54 13 95 07/07/16 13:19 54 13 95 07/07/16 13:19 55 13 07/07/16 13:19 55 13 07/07/16 13:15 131/86 07/07/16 13:15 131/86 07/07/16 13:14 58 17 94 07/07/16 13:14 58 17 94 07/07/16 13:14 53 17 07/07/16 13:14 53 17 07/07/16 13:12 74 12 96 Diffusion Mask 9.0 07/07/16 13:11 138/79 07/07/16 13:11 138/79 07/07/16 13:09 57 12 07/07/16 13:09 62 12 95 07/07/16 13:09 57 12 07/07/16 13:09 62 12 95 07/07/16 13:06 155/82 07/07/16 13:06 155/82 07/07/16 13:04 58 12 95 07/07/16 13:04 58 12 95 07/07/16 13:04 58 12 07/07/16 13:04 58 12 07/07/16 13:03 59 18 94 07/07/16 13:03 59 18 07/07/16 13:00 138/79 07/07/16 12:58 61 19 07/07/16 12:58 60 19 93 07/07/16 12:55 130/83 07/07/16 12:54 131/97 07/07/16 12:53 36.6 65 16 131/97 95 Mask 10 07/07/16 12:53 64 25 94 07/07/16 12:53 64 25 07/07/16 11:35 36.8 53 20 136/75 92 Room Air 3 (Velia Shook ., PA-C) Physical Exam General Appearance: WD/WN, no apparent distress, + obese Eyes: normal inspection, PERRL, EOMI ENT: normal ENT inspection, hearing grossly normal, + pertinent finding (oral candidiasis) Neck: supple, no JVD, trachea midline Respiratory/Chest: lungs clear, normal breath sounds, no respiratory distress Cardiovascular: regular rate, rhythm, no gallop, no murmur Abdomen: normal bowel sounds, non tender, soft Extremities: no pedal edema, normal capillary refill, + pertinent finding (L lateral hip and L inguinal area TTP. L lateral hip covered in dressings, changed this morning.) Neurologic/Psychiatric: alert, normal mood/affect, oriented x 3 Skin: normal color, warm/dry, no rash (Velia Shook ., PA-C) Laboratory Results Last 24 Hours Test 07/07/16 12:53 07/07/16 16:47 07/07/16 20:43 07/08/16 05:53 Bedside Glucose 116 mg/dl 146 mg/dl 134 mg/dl White Blood Count 15.79 K/uL Red Blood Count 4.12 M/uL Hemoglobin 13.5 g/dL Hematocrit 39.7 % Mean Corpuscular Volume 96.4 fL Mean Corpuscular Hemoglobin 32.8 pg Mean Corpuscular Hemoglobin Concent 34.0 g/dl Platelet Count 109 K/uL Mean Platelet Volume 10.4 fL Neutrophils (%) (Auto) 73.1 % Lymphocytes (%) (Auto) 14.0 % Monocytes (%) (Auto) 11.7 % Eosinophils (%) (Auto) 0.3 % Basophils (%) (Auto) 0.3 % Neutrophils # (Auto) 11.55 K/uL Lymphocytes # (Auto) 2.21 K/uL Monocytes # (Auto) 1.84 K/uL Eosinophils # (Auto) 0.05 K/uL Basophils # (Auto) 0.04 K/uL RDW Standard Deviation 45.1 fL RDW Coefficient of Variation 12.8 % Immature Granulocyte % (Auto) 0.6 % Immature Granulocyte # (Auto) 0.10 K/uL Prothrombin Time 12.8 SECONDS Prothromb Time International Ratio 1.2 Sodium Level 136 mmol/L Potassium Level mmol/L Chloride Level 103 mmol/L Carbon Dioxide Level 27 mmol/L Anion Gap 6.0 mmol/L Blood Urea Nitrogen 15 mg/dl Creatinine 0.58 mg/dl Est Creatinine Clear Calc Drug Dose 97.2 ml/min Estimated GFR () 106.0 Estimated GFR (Non- 91.4 BUN/Creatinine Ratio 25.4 Random Glucose 116 mg/dl Calcium Level 8.0 mg/dl Test 07/08/16 08:11 Potassium Level 4.2 mmol/L (Velia Shook, SOWMYA) Assessment and Plan 75 y/o female with a history of HTN, HLD, hypothyroidism, anxiety/depression, GERD, IBS, 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 Patient tripped in the dark and fell. No head trauma. Left hip x-ray shows fracture at the base of the femoral neck. Chest x-ray no acute disease. EKG no ischemic changes. Patient had nausea and vomiting, controlled with Zofran. Elevated white blood cell count 15.71, otherwise grossly unremarkable. Patient has not yet eaten or taken any of her morning meds. [facility] orthopedics consulted by ED physician , will take to OR today. Left hip fracture following a mechanical fall--s/p closed reduction, internal fixation of left hip fx with Dr. Steele on 07/07, POD #1 -Admit to MedSurg -No significant cardiac history. EKG and CXR grossly normal. Patient is acceptable risk for surgery -Diabetes type 2 diet -Orthopedics consulted, Dr. Steele following. Weight bear as tolerated. Tylenol and Toradol added for pain control to decrease narcotic use. Discharge when cleared by medicine. F/u in 2 weeks. -Pain control ordered by orthopedics -Recent prednisone use: Patient will be given Decadron 8 mg IV 1 prior to surgery for stress dose steroids -PT, OT for after surgery, assess need for acute rehab Oral candidiasis--stable -Start nystatin 5 ml PO QID x 7 days Productive cough--recent PNA -Continue albuterol nebulizer QID prn SOB/wheezing -Mucinex 600 mg PO BID Hypertension--stable -Continue amlodipine 5 mg PO qd and carvedilol 25 mg PO BID -Renal function stable. Resume lisinopril 40 mg PO qd -Cover with hydralazine 10 mg IV q6h prn SBP >180 Hypothyroidism -Continue Synthroid 112 g PO qd Anxiety depression -Continue Zoloft 50 mg PO qd, Vistaril 50 mg PO TID prn anxiety, and Ativan 0.5 mg PO BID prn anxiety GERD -Continue Protonix 40 mg PO qd IBS -Continue Bentyl 10 mg PO BID Diabetes mellitus type 2--last HgbA1c checked on 06/28/16 was 5.8. Patient is not taking any medications for this and is diet controlled -Check daily glucose with PRP for now. If elevated, will check BSGs before meals and bedtime with insulin sliding scale Osteoporosis -Continue Fosamax 70 mg PO weekly. Patient takes on Sundays. DVT prophylaxis -Started on warfarin 5 mg PO qd per ortho. Bridge with Lovenox 40 mg SC q24h -TIKA escalante and SCDs Code Status -Level I, FULL RESUSCITATION STATUS This chart was completed in part utilizing [employer] Speech Voice Recognition software. Attempts were made to minimize the grammatical errors, random word insertions, pronoun errors and incomplete sentences. Any formal questions or concerns about the content, text or information contained within the body of this dictation should be directly addressed to the provider for clarification. (Velia Shook ., PA-C) Attending Attestation: Pt seen/examined, chart reviewed, care plan d/w ENRICO Shook. I agree w/ the olmos components of her documentation. Pt w/ c/o cough and some sputum production but no dyspnea. Worked with PT. Appetite is poor. Wants to go home from hospital rather than rehab. VSS O2 sats ok exam - heart - RRR, s1,s2 lungs - mild end-exp wheeze; no rales abd - soft, ND, BS+ mouth - thrush A/P: 1. POD #1 s/p ORIF left hip fx 2. asthma with mild exacerbation - schedule duonebs q6h; mucinex; defer on steroids for now 3. acute blood loss anemia 4. thrush - nystatin review PT notes Riccardo Moseley MD (Riccardo Moseley MD)
[2016-07-08] MEDS ORDERED: WARFARIN SOD 5 MG TAB PO SCH (16:00)
[2016-07-08] MEDS: HYDROmorphone HCL 2 MG TAB PO PRN (16:10)
[2016-07-08] MEDS: ALBUTEROL HFA 8 GM INHALER INH SCH (19:04)
[2016-07-08] MEDS: MoRPHine SULFATE 2 MG/ML CARP IV PRN (19:05)
[2016-07-08] MEDS: LORAZEPAM 0.5 MG TAB PO PRN (21:12)
[2016-07-08] MEDS: DOCUSATE SODIUM 100 MG CAP PO SCH (21:13)
[2016-07-08] MEDS: GUAIFENESIN 600 MG TABCR PO SCH (21:14)
[2016-07-09] MEDS: MoRPHine SULFATE 2 MG/ML CARP IV PRN ×2 (00:33→20:32)
[2016-07-09] MEDS: ALBUTEROL HFA 8 GM INHALER INH SCH ×5 (00:34→20:21)
[2016-07-09 05:36] LABS: BASO % 0.1 %; BASO ABS # 0.02 K/uL (0-0.2); COMPLETE YES; EOS % 0.8 %; HEMATOCRIT 36.4 % (37-47); IG% 0.6 %; LYMPH % 14.6 %; LYMPH ABS # 2.11 K/uL (1.2-3.4); MEAN CELL VOLUME 95.5 fL (80-100); MEAN CORPUSCULAR HEMOGLOBIN 32.8 pg (25-34); MEAN CORPUSCULAR HGB CONC 34.3 g/dl (32-36); MEAN PLATELET VOLUME 9.3 fL (7.4-10.4); MONO % 11.3 %; NEUT % 72.6 %; PLATELET COUNT 152 K/uL (130-400); RED BLOOD COUNT 3.81 M/uL (4.2-5.4)
[2016-07-09] MEDS: LEVOTHYROXINE 112 MCG TAB PO SCH (05:38)
[2016-07-09] MEDS: HYDROmorphone HCL 2 MG TAB PO PRN ×3 (05:39→18:48)
[2016-07-09 05:44] LABS: INR 1.3 (0.9-1.1); PROTHROMBIN TIME (PATIENT) 13.9 SECONDS (9.0-12.0)
[2016-07-09 06:01] LABS: CALCIUM 8.1 mg/dl (8.5-10.1); CREATININE 0.72 mg/dl (0.60-1.20); POTASSIUM 4.1 mmol/L (3.5-5.1)
[2016-07-09 07:00] VITALS: BP 145/81; PULSE 76; TEMP 37.1; O2SAT 98
[2016-07-09] MEDS: KETOROLAC TROMETHAMINE 15 MG/ML VIAL IV PRN (07:52)
[2016-07-09] MEDS: ONDANSETRON INJ 2 MG/ML 2 ML VIAL IV PRN (07:52)
[2016-07-09] MEDS: ENOXAPARIN 40 MG/0.4 ML SYR SQ SCH (07:58)
[2016-07-09] MEDS: DICYCLOMINE HCL 10 MG CAP PO SCH ×2 (08:47→20:28)
[2016-07-09] MEDS: FLUTICASONE HFA 220 MCG INHALER INH SCH ×2 (08:47→20:23)
[2016-07-09] MEDS: CARVEDILOL 25 MG TAB PO SCH ×2 (08:48→20:22)
[2016-07-09] MEDS: PANTOprazole SOD 40 MG TAB PO SCH (08:49)
[2016-07-09] MEDS: MULTIVITAMIN TAB PO SCH (08:49)
[2016-07-09] MEDS: GUAIFENESIN 600 MG TABCR PO SCH ×2 (08:50→20:20)
[2016-07-09] MEDS: CeleBREX 100 MG CAP PO SCH ×2 (08:51→20:22)
[2016-07-09] MEDS: CHOLECALCIFEROL 1000 INTER.UNIT TAB PO SCH (08:51)
[2016-07-09] MEDS: POLYETHYLENE (MIRALAX) 17 GM PACK PO SCH (08:52)
[2016-07-09] MEDS: SENNA 8.6 MG TAB PO SCH (08:52)
[2016-07-09] MEDS: SERTRALINE HCL 50 MG TAB PO SCH (08:53)
[2016-07-09] MEDS: NYSTATIN SUSP 500,000 U/5 ML UDC PO SCH ×4 (08:53→20:21)
[2016-07-09] MEDS: AMLODIPINE BESYLATE 5 MG TAB PO SCH (08:54)
[2016-07-09] MEDS: LORAZEPAM 0.5 MG TAB PO PRN (08:55)
[2016-07-09] MEDS: LISINOPRIL 40 MG TAB PO SCH (09:21)
--- NOTE | 2016-07-09 09:48 | PROGRESS NOTE ---
DATE: 07/09/2016 SUBJECTIVE: Postop day #2 progress note status post left hip closed reduction and internal fixation with DHS plate screw system. At this point in time, the patient is doing well. She denies any chest pain, shortness of breath, fever, chills, nausea, vomiting. She is sitting up in a chair, eating breakfast. Her appetite is relatively good. She does not like the eggs. Vital signs are stable. She is afebrile. Laboratory work reveals her hematocrit is 36.4. There is no need to repeat that anymore. INR is 1.3. Continue Coumadin nomogram dose today per nomogram. Glucoses are well controlled, maximum at 160, runs in the 130 ranges for most of the time. OBJECTIVE: VITAL SIGNS: Stable. She is afebrile. NEUROVASCULAR: Check is normal femoral sciatic nerve. Wound dressing clean, dry and intact. Calves nontender. ABDOMEN: Soft, nontender. ASSESSMENT: Doing well status post open reduction and internal fixation of left hip fracture. At this point in time, discharge plan is as per medicine and I will sign off the case. She will follow up with me in roughly 2 weeks for staple removal. PLAN: For discharge to be finalized by family, social media marketing analyst, patient and medicine.
[2016-07-09] MEDS: FERROUS SULFATE 325 MG TAB PO SCH ×2 (12:14→18:42)
[2016-07-09 16:00] VITALS: O2SAT 92
[2016-07-09] MEDS ORDERED: WARFARIN SOD 5 MG TAB PO ONE (16:00)
[2016-07-09 16:20] VITALS: BP 99/61; PULSE 64; TEMP 37; O2SAT 91
[2016-07-09] MEDS: DOCUSATE SODIUM 100 MG CAP PO SCH (20:20)
[2016-07-09] MEDS ORDERED: PRAMIPEXOLE DIHYDROCHLORIDE 0.25MG TAB PO SCH (21:00)
[2016-07-09] MEDS: METOCLOPRAMIDE HCL INJ 5 MG/ML 2 ML VIAL IV PRN (21:02)
--- NOTE | 2016-07-09 21:33 | Progress Note ---
Subjective Date of Service: Jul 09, 2016. Subjective Pt evaluation today including: conversation w/ patient, physical exam, chart review, lab review, review of inpatient medication list Pain: minimal, left hip PO Intake: good/normal Voiding: no voiding problems Pt c/o restless legs type symptoms last pm. She denies sob, dyspnea, abd pain, constipation. Cough is better. Still wanting to skip rehab and return home at discharge. Problem List Medical Problems: (1) Hip fracture, left Status: Acute Review of Systems Constitutional: No fever Respiratory: No dyspnea on exertion, No shortness of breath Cardiac: No chest pain Abdomen: No pain Objective Vital Signs Date Time Temp Pulse Resp B/P Pulse Ox O2 Delivery O2 Flow Rate FiO2 07/09/16 16:20 37.0 64 18 99/61 91 Room Air 07/09/16 16:00 92 Room Air 07/09/16 07:50 Room Air 07/09/16 07:00 37.1 76 18 145/81 98 Room Air 07/09/16 00:30 Room Air 07/08/16 23:05 37.0 62 16 107/58 95 Nasal Cannula 2.0 Physical Exam General Appearance: no apparent distress ENT: pharynx normal, + pertinent finding (thrush plaques buccal mucosa) Neck: no JVD Respiratory/Chest: lungs clear, no respiratory distress, no accessory muscle use Cardiovascular: regular rate, rhythm, no gallop, no murmur Abdomen: normal bowel sounds, non tender, soft, no organomegaly Extremities: + pedal edema (left ankle) Neurologic/Psychiatric: alert, oriented x 3 Skin: + pertinent finding (dressings intact left thigh) Laboratory Results Last 24 Hours Test 07/09/16 05:23 07/09/16 07:54 07/09/16 11:26 07/09/16 16:59 White Blood Count 14.50 K/uL Red Blood Count 3.81 M/uL Hemoglobin 12.5 g/dL Hematocrit 36.4 % Mean Corpuscular Volume 95.5 fL Mean Corpuscular Hemoglobin 32.8 pg Mean Corpuscular Hemoglobin Concent 34.3 g/dl Platelet Count 152 K/uL Mean Platelet Volume 9.3 fL Neutrophils (%) (Auto) 72.6 % Lymphocytes (%) (Auto) 14.6 % Monocytes (%) (Auto) 11.3 % Eosinophils (%) (Auto) 0.8 % Basophils (%) (Auto) 0.1 % Neutrophils # (Auto) 10.53 K/uL Lymphocytes # (Auto) 2.11 K/uL Monocytes # (Auto) 1.64 K/uL Eosinophils # (Auto) 0.12 K/uL Basophils # (Auto) 0.02 K/uL RDW Standard Deviation 44.3 fL RDW Coefficient of Variation 12.7 % Immature Granulocyte % (Auto) 0.6 % Immature Granulocyte # (Auto) 0.08 K/uL Prothrombin Time 13.9 SECONDS Prothromb Time International Ratio 1.3 Sodium Level 137 mmol/L Potassium Level 4.1 mmol/L Chloride Level 101 mmol/L Carbon Dioxide Level 30 mmol/L Anion Gap 6.0 mmol/L Blood Urea Nitrogen 12 mg/dl Creatinine 0.72 mg/dl Est Creatinine Clear Calc Drug Dose 78.3 ml/min Estimated GFR () 96.3 Estimated GFR (Non- 83.1 BUN/Creatinine Ratio 17.0 Random Glucose 141 mg/dl Calcium Level 8.1 mg/dl Bedside Glucose 149 mg/dl 135 mg/dl 132 mg/dl Test 07/09/16 20:42 Bedside Glucose 133 mg/dl Assessment and Plan 75yo female with: 1. POD #2 s/p ORIF left hip fx - doing well from orthopedic standpoint. On coumadin for DVT proph. While awaiting coumadin to become therapeutic use lovenox once daily. 2. asthma with mild exacerbation - resolved. Lung exam stable/improved. Cont scheduled duonebs q6h and mucinex; defer on steroids for now. 3. acute blood loss anemia - no indication for PRBCs. CBC am. 4. thrush - nystatin - improving. 5. restless legs symptoms - mirapex at HS. 6. HTN - controlled; cont home meds. 7. T2DM - controlled. 8. hypothyroidism - cont synthroid; most recent TSH normal. 9. dispo - spoke with patient and encouraged her to STRONGLY consider rehab due to 3 separate PT/OTs recommending rehab. I left message for daughter that it may be good idea for her to observe the PT session as her daughter will be the primary boiler technician after discharge (if she were to return home). Continued [facility] stay due to: inadequate oral pain control, ambulation difficulties Discharge planning: uncertain
[2016-07-09 23:20] VITALS: BP 119/67; PULSE 66; TEMP 36.9; O2SAT 92
[2016-07-10 05:54] LABS: BASO % 0.2 %; BASO ABS # 0.03 K/uL (0-0.2); COMPLETE YES; EOS % 2.1 %; HEMATOCRIT 34.1 % (37-47); IG% 0.6 %; LYMPH ABS # 2.11 K/uL (1.2-3.4); MEAN CELL VOLUME 95.3 fL (80-100); MEAN CORPUSCULAR HEMOGLOBIN 32.4 pg (25-34); MEAN PLATELET VOLUME 9.4 fL (7.4-10.4); MONO % 10.3 %; NEUT % 69.8 %; PLATELET COUNT 154 K/uL (130-400); RED BLOOD COUNT 3.58 M/uL (4.2-5.4); WHITE BLOOD COUNT 12.38 K/uL (4.8-10.8)
[2016-07-10 06:02] LABS: INR 1.6 (0.9-1.1); PROTHROMBIN TIME (PATIENT) 17.7 SECONDS (9.0-12.0)
[2016-07-10] MEDS: LEVOTHYROXINE 112 MCG TAB PO SCH (06:10)
[2016-07-10] MEDS: ALBUTEROL HFA 8 GM INHALER INH SCH ×2 (06:11→12:06)
[2016-07-10] MEDS: HYDROmorphone HCL 2 MG TAB PO PRN ×2 (06:19→12:49)
[2016-07-10 06:20] LABS: BUN/CREATININE RATIO 16.2 (10-20); CALCIUM 8.1 mg/dl (8.5-10.1); CREATININE 0.64 mg/dl (0.60-1.20)
[2016-07-10] MEDS ORDERED: ALENDRONATE SODIUM 70 MG TAB PO SCH (06:30)
[2016-07-10 07:33] VITALS: BP 160/75; PULSE 68; TEMP 37; O2SAT 94
[2016-07-10 08:00] VITALS: O2SAT 94
--- NOTE | 2016-07-10 08:28 | PROGRESS NOTE ---
DATE: 07/10/2016 SUBJECTIVE: Postop day 3 status post internal fixation left intertrochanteric hip fracture. At this point in time the patient is in good spirits. She denies chest pain, shortness of breath, fevers, chills, nausea, vomiting or headache. Vital signs are stable. She is afebrile. Wound dressing clean, dry and intact. Her neurovascular check both lower extremities within normal limits. Log rolling, axial load compression is without pain. Calves are nontender. Laboratory work reveals hematocrit stable in the mid 30 range. White count has decreased to 12.3, INR is 1.6. Will discontinue the Lovenox. ASSESSMENT: Overall, doing well. I had a discussion with the patient in detail about her needs. At this point in time she is amenable after my discussion with her to proceed with transfer to [facility]. I will write orders for that today. Discharge planning per medicine, finalize her med rec, etc. Will follow up with me in the office in roughly 2 weeks.
[2016-07-10] MEDS: FERROUS SULFATE 325 MG TAB PO SCH ×2 (08:30→12:05)
[2016-07-10] MEDS: FLUTICASONE HFA 220 MCG INHALER INH SCH (08:41)
[2016-07-10] MEDS: ENOXAPARIN 40 MG/0.4 ML SYR SQ SCH (08:41)
[2016-07-10] MEDS: CeleBREX 100 MG CAP PO SCH (08:42)
[2016-07-10] MEDS: POLYETHYLENE (MIRALAX) 17 GM PACK PO SCH (08:42)
[2016-07-10] MEDS: CARVEDILOL 25 MG TAB PO SCH (08:42)
[2016-07-10] MEDS: SENNA 8.6 MG TAB PO SCH (08:43)
[2016-07-10] MEDS: AMLODIPINE BESYLATE 5 MG TAB PO SCH (08:43)
[2016-07-10] MEDS: PANTOprazole SOD 40 MG TAB PO SCH (08:43)
[2016-07-10] MEDS: MULTIVITAMIN TAB PO SCH (08:43)
[2016-07-10] MEDS: GUAIFENESIN 600 MG TABCR PO SCH (08:43)
[2016-07-10] MEDS: NYSTATIN SUSP 500,000 U/5 ML UDC PO SCH ×2 (08:43→12:44)
[2016-07-10] MEDS: CHOLECALCIFEROL 1000 INTER.UNIT TAB PO SCH (08:43)
[2016-07-10] MEDS: LISINOPRIL 40 MG TAB PO SCH (08:44)
[2016-07-10] MEDS: SERTRALINE HCL 50 MG TAB PO SCH (08:44)
[2016-07-10] MEDS: DICYCLOMINE HCL 10 MG CAP PO SCH (08:48)
[2016-07-10 12:30] VITALS: BP 160/75; PULSE 68; TEMP 37; O2SAT 94
[2016-07-10] MEDS ORDERED: ORTHO WARFARIN NOMOGRAM (13:18)
[2016-07-10] MEDS ORDERED: LVNIS40 SQ (13:18)
[2016-07-10] MEDS ORDERED: MULT-589 PO (13:18)
[2016-07-10] MEDS ORDERED: SNK PO (13:18)
[2016-07-10] MEDS ORDERED: PRVHFAIN INH (13:18)
[2016-07-10] MEDS ORDERED: MRP25 PO (13:18)
[2016-07-10] MEDS ORDERED: MRLP17 PO (13:18)
[2016-07-10] MEDS ORDERED: NYSS5 PO (13:18)
--- NOTE | 2016-07-10 13:23 | Discharge Instructions ---
Discharge Instructions Date of Service Jul 10, 2016. Admission Reason for Admission: Hip Fracture, Left Discharge Discharge Diagnosis / Problem: left sided hip fracture s/p ORIF Discharge Goals Goal(s): Decrease discomfort, Improve function, Increase independence, Learn about illness, Diagnostic testing, Therapeutic intervention Activity Recommendations Activity Level: Assistance Required Therapies: Physical Therapy, Occupational Therapy Weightbearing Status: Left weightbearing (as tolerated) Shower/Bathe: keep incision dry . Additional Information Patient informed of condition: Yes Advance Directives: No DNR: No Level of Care: Acute Rehab Communicable Disease: No Prognosis: Improving Oxygen at (LPM): none Angel Catheter: No Instructions / Follow-Up Instructions / Follow-Up Follow-up with Dr. Steele in 2 weeks for incision check and staple removal. Follow-up with PCP within 1 week of discharge from [facility]. Current Hospital Diet Patient's current hospital diet: Diabetes Type 2 Diet Discharge Diet Recommended Diet: Diabetes Type 2 Diet Procedures Procedures Performed: Left Hip Open Reduction Internal Fixation for Intertrochanteric Fracture (Dynamic Hip Screw) Pending Studies Studies pending at discharge: no Physician Orders On Transfer Special Precautions: fall precautions Dressing Changes: to left hip daily and PRN lamonte are to remain intact until time of follow-up with Dr. Steele Vital Signs: per [facility] routine Additional Orders: 1. check daily INR starting AM of 07/11/16 - report results to medical insurance clerk 2. check CBC, BMP in 5 days for stability 3. check fingerstick blood sugars before breakfast and at bedtime - patient is a diet-controlled type 2 diabetic POLST Discussion: Not Applicable Laboratory Results Hemoglobin A1c Test 06/28/16 11:45 Range/Units Estimated Average Glucose 120 mg/dl Hemoglobin A1c 5.8 H 4.5-5.6 % Lipid Panel Test 06/28/16 11:45 Range/Units Triglycerides Level 125 0-150 mg/dl Cholesterol Level 166 0-200 mg/dl HDL Cholesterol 35 mg/dl Cholesterol/HDL Ratio 4.7 LDL Cholesterol, Calculated 106 mg/dl Medical Emergencies . Who to Call and When: Medical Emergencies: If at any time you feel your situation is an emergency, please call 911 immediately. . Non-Emergent Contact Non-Emergency issues call your: Hospital Doctor Call Non-Emergent contact if: temperature is above 100.5, your pain is not controlled, your pain is worsening, your pain is unusual for you, your pain is concerning you, wound has increased drainage, wound has increased redness, wound has increased pain, you have any medication questions . . "Provider Documentation" section prepared by Riccardo Moseley. Core Measure Problem Core Measures: None
[2016-07-10] MEDS ORDERED: WARFARIN SOD 3 MG TAB PO ONE (13:30)
--- NOTE | 2016-07-10 19:26 | Discharge Summary ---
Discharge Summary Date of Service Jul 10, 2016. Discharge Summary Admission Date: Jul 07, 2016 at 13:10 Discharge Date: Jul 10, 2016 Discharge Disposition: Rehab ([facility]) Principal Diagnosis: left hip fracture s/p ORIF Problems/Secondary Diagnoses: 1. acute blood loss anemia 2. asthma/COPD with mild exacerbation - resolved 3. chronic tobacco dependence 4. 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 HTN 6. hyperlipidemia 7. hypothyroidism 8. anxiety/depression 9. GERD 10. IBS 11. diet-controlled T2DM 12. h/o esophageal varices due to #4 13. thrush Immunizations: Have You Had Influenza Vaccine: No History of Tetanus Vaccine?: UNKNOWN History of Pneumococcal: Yes History of Hepatitis B Vaccine: No Procedures: left hip ORIF - Pierre Steele MD Consultations: orthopedics - Pierre Steele MD PT, OT Medication Reconciliation New Medications: Albuterol (Ventolin Hfa) 60 Puffs/5400 Mcg Aers 2 PUFFS INH Q6H, #1 1 Refill Enoxaparin (Enoxaparin Sodium) 40 Mg/0.4 Ml Inj 40 MG SQ Q24H, #7 0 Refills may discontinue once coumadin has achieved desired INR goal Multivitamins (Daily Estefania) 1 Tab Tab 1 TAB PO QAM, #30 TAB 1 Refill Nystatin (Nystatin) 5 Ml Susp 5 ML PO QID for 7 Days, #140 ML 1 Refill swish & spit Polyethylene (Miralax) 17 Gm Pow 17 GM PO DAILY, #1 BTL 1 Refill Pramipexole Dihydrochloride (Pramipexole Dihydrochlori) 0.25 Mg Tab 0.25 MG PO HS PRN for restless legs, #30 TAB 1 Refill Senna (Senna Lax) 8.6 Mg Tab 17.2 MG PO QAM PRN for Constipation, #30 TAB 1 Refill [Ortho Warfarin Nomogram Dose] () 1 EA EA 1 EA N/A DAILY@1400, #30 1 Refill patient received 3mg of warfarin on 07/10/16 at [facility]; start warfarin on 07/11/16 at [facility] per protocol. Continued Medications: Albuterol Sulf (Proventil 0.083% 2.5MG/3ML) 2.5 Mg/3 Ml Nebu 2.5 MG INH QID PRN for Wheezing, EA Amlodipine (Norvasc) 5 Mg Tab 5 MG PO DAILY, TAB Carvedilol (Coreg) 25 Mg Tab 25 MG PO BID, TAB Cholecalciferol (Vitamin D3) 1,000 Unit Tab 2 TAB PO QAM, TAB 3 Refills Docusate Sodium (Stool Softener) 100 Mg Cap 200 MG PO HS Ferrous Sulfate (Ferrous Sulfate) 325 Mg Tab 325 MG PO TID Fluticasone Propionate (Flovent Hfa) 120 Puffs/20221 Mcg Aero 2 PUFFS INH BID Furosemide (Lasix) 20 Mg Tab 20 MG PO DAILY PRN for ., TAB Guaifenesin/Dextromethorphan (Guaifenesin-Dm 100-10 mg/5Ml) 10 Ml/Cup Syrp 10 ML PO Q4 PRN for Cough Hydromorphone Hcl (Dilaudid) 4 Mg Tab 4 MG PO Q4H PRN for Pain, TAB Hydroxyzine Hcl (Atarax) 50 Mg Tab 50 MG PO TID PRN for Itching, TAB Levothyroxine Sodium (Synthroid) 112 Mcg Tab 112 MCG PO DAILY, TAB Lisinopril (Lisinopril) 40 Mg Tab 1 TAB PO DAILY Lorazepam (Ativan) 0.5 Mg Tab 0.5 MG PO Q12 PRN for Anxiety, TAB Meclizine Hcl (Meclizine Hcl) 25 Mg Tab 1 TAB PO TID PRN for Dizziness or Vertigo for 10 Days, #30 TAB Morphine Sulfate (Morphine Sulfate ER) 30 Mg Tabcr 1 TAB PO HS Ondasetron Odt (Zofran Odt) 4 Mg Tab 4 MG SL Q8 PRN for Nausea, #6 TAB Pantoprazole (Protonix) 40 Mg Tab 40 MG PO QAM, #30 TAB Sertraline Hcl (Zoloft) 50 Mg Tab 50 MG PO DAILY, TAB Discontinued Medications: Aspirin (Aspirin Ec) 325 Mg Tab 325 MG PO QAM Cefuroxime Axetil (Ceftin) 500 Mg Tab 500 MG PO BID, TAB Ciprofloxacin Hcl (Cipro) 500 Mg Tab 500 MG PO BID, TAB Discharge Exam Physical Exam: General Appearance: WD/WN, no apparent distress ENT: + pertinent finding (suspected thrush buccal mucosa) Neck: no JVD Respiratory/Chest: lungs clear, no respiratory distress, no accessory muscle use Cardiovascular: regular rate, rhythm, no gallop, normal peripheral pulses, + systolic murmur (2/6 BRITTANY LSB) Abdomen / GI: normal bowel sounds, non tender, soft, no organomegaly Extremities: no pedal edema (right leg), + pedal edema, + swelling (left thigh) Neurologic/Psychiatric: alert, oriented x 3 Skin: + pertinent finding (dressing intact left leg ) Hospital Course HISTORY OF PRESENT ILLNESS: This is a 75yo female with a history of HTN, HLD, hypothyroidism, anxiety/ depression, GERD, IBS, cirrhosis secondary to SANTOS, and diet-controlled T2DM who presented to the ED on 07/07/16 with a mechanical fall and left hip pain. The patient states that she did not have any power this morning and and that her room was completely dark. As she could not see, she tripped on something and then fell. She denies any dizziness or lightheadedness prior to the fall and denies any head trauma. She denies any loss of consciousness. The patient reports experiencing nausea and vomiting immediately after the fall with the onset of her sharp pain. The patient complains of a 10/10 sharp pain in her left groin and hip that is worse with movement. She states that she also occasionally has spasms which exacerbates the pain. The patient was recently diagnosed with community-acquired pneumonia and just completed a course of prednisone yesterday. The patient denies fevers, chills, sweats, chest pain, palpitations, claudication, cough, wheezing, shortness of breath, abdominal pain , dysuria, hematuria, urinary retention, paralysis, weakness, numbness and tingling. HOSPITAL COURSE: At ER presentation x-rays demonstrated a left-sided hip fracture. She was taken to the OR on 07/07/16 and underwent ORIF by Dr. Pierre Steele. Post-operatively she was begun on lovenox for DVT prophylaxis as well as coumadin per nomogram protocol. She experienced a very mild asthma/COPD exacerbation while here requiring the use of nebulizer treatments only. Apparently she had had pneumonia in the month leading up to this hospitalization but admission chest x-ray was normal. She had evidence of acute blood loss anemia and discharge hemoglobin was 11.6. She will initiate iron supplementation at discharge. Prior to discharge the patient was eating/drinking well, voiding, and having bowel movements. She was seen in consult by PT/OT who both recommended rehab. The patient will transfer to [facility] for such. All other medical problems remained stable while hospitalized. At discharge the following were recommended: 1. coumadin for DVT prophylaxis per "nomogram protocol"; discharge INR was 1.6 2. lovenox once daily while awaiting INR to become therapeutic 3. with-holding her fosamax, celebrex, and aspirin while taking coumadin as she has a history of esophageal varices and gastritis 4. follow-up with Dr. Steele in 2 weeks for staple removal Total Time Spent: Greater than 30 minutes This includes examination of the patient, discharge planning, medication reconciliation, and communication with other providers. Discharge Instructions Please refer to the electronic Patient Visit Report (Discharge Instructions) for additional information. Follow-Up 1. see Dr. Steele, orthopedics, in 2 weeks for staple removal 2. see Dr. Jules, PCP, within 1 week of discharge from [facility] Additional Copies To Michael Estrada M.D.; [facility]; Todd Pagan M.D.; Courtney Jules, ; Pierre Steele M.D.
[2016-07-15] MEDS ORDERED: [UNRECOGNIZED DRUG - CODE] TOP (20:08)
== END 2016-07-10 13:30 | DRG 481 ==
LOC: ENRESERVTM → ENRESERVDT → EDBD 06:56 → C.EDB 06:59 → C.3E 13:10
PROVIDERS: ADMIT Internal Medicine; ATTEND Internal Medicine
PROC: 0QS704Z Reposition Left Upper Femur with Internal Fixation Device, Open Approach (ICD-10-PCS; principal; 2016-07-07 07:15)
DX: S72.142A Displaced intertrochanteric fracture of left femur, initial encounter for closed fracture (principal); B37.0 Candidal stomatitis; D62 Acute posthemorrhagic anemia; J45.901 Unspecified asthma with (acute) exacerbation; J44.1 Chronic obstructive pulmonary disease with (acute) exacerbation; E78.5 Hyperlipidemia, unspecified; E11.9 Type 2 diabetes mellitus without complications; E66.9 Obesity, unspecified; Z68.36 Body mass index [BMI] 36.0-36.9, adult; I10 Essential (primary) hypertension; F32.9 Major depressive disorder, single episode, unspecified; F41.9 Anxiety disorder, unspecified; W01.0XXA Fall on same level from slipping, tripping and stumbling without subsequent striking against object, initial encounter; E03.9 Hypothyroidism, unspecified; K21.9 Gastro-esophageal reflux disease without esophagitis; K58.9 Irritable bowel syndrome, unspecified; M81.0 Age-related osteoporosis without current pathological fracture; K75.81 Nonalcoholic steatohepatitis (NASH); Z87.01 Personal history of pneumonia (recurrent); K74.60 Unspecified cirrhosis of liver; F17.200 Nicotine dependence, unspecified, uncomplicated; E86.1 Hypovolemia

== ENCOUNTER 2016-07-20 18:41 | Emergency (ER) | payer OTHER, MEDICARE ==
[~2016-07-20] VITALS: Ht 162.6 cm; Wt 102.4 kg
[~2016-07-20 18:41] MED LIST changes: +ALBINS/ INH; +AMLO-110 PO; -AMLO2.5T2 PO; -ASPI325T39 PO; -ATRINS NEB; -CLB100 PO; -DICY20TA35 PO; +FERR1TAB62 PO; -FERR325T51 PO; +FLVHFA220 INH; +FURO-85 PO; -HYDR4TAB2 PO; +HYDR4TAB78 PO; -LEVO100T PO; +LEVO112T2 PO; +LORA-741 PO; +LSN40 PO; +LVNIS40 SQ; +MECL1TAB42 PO; +MRLP17 PO; +MRP25 PO; +MRPSR30 PO; +MULT-589 PO; +NYSS5 PO; +ONDA4TAB10 SL; -ONDA8TAB7 PO; +ORTHO WARFARIN NOMOGRAM; +PRVHFAIN INH; -SIMV20TA2 PO; +SNK PO; +[UNRECOGNIZED DRUG - CODE] PO; +[UNRECOGNIZED DRUG - CODE] TOP
[2016-07-20 19:13] VITALS: TEMP 36.9; Ht 162.6 cm; Wt 102.4 kg
--- NOTE | 2016-07-20 19:21 | EMERGENCY ROOM VISIT NOTE ---
History Report prepared by Sushila: Jaz Sanchez Under the Supervision of: Dr. Charli Ackerman M.D. First contact with patient: 19:06 Chief Complaint: OTHER COMPLAINT Stated Complaint: BLEEDING FROM INCISION SITE History of Present Illness The patient is a 75 year old female who presents to the Emergency Room with complaints of resolved bleeding from an incision on her left hip that she noticed SUPERVISING FIRE MARSHAL. The patient had her left hip replaced [address] Steele - Orthopedic Surgery and she was discharged from the hospital 2 days ago. She states that she spilled her coffee on her lap after dinner and when she was wiping it off she noticed that her incision site was bleeding. The site is not bleeding currently. When the patient was discharged from the hospital, the nurses noted that her incision site was slightly erythematous, but she states that they didn't seem too concerned about it. The patient states that she has been trying to ambulate minimally and the only time she experiences significant pain is when she is at physical therapy. Source of History: patient Onset: SUPERVISING FIRE MARSHAL Position: other (left hip) Quality: other (bleeding from incision site) Timing: resolved Note: erythema around incision Review of Systems All systems have been listed, reviewed, and are negative other than those previously mentioned. Please see Additional Medical History Sheet. Past Medical & Surgical Medical Problems: (1) Cirrhosis of liver (2) Closed left hip fracture (3) DIAB LUCY WO COMPL, TYPE II OR UNSPEC TYPE, NOT UNCNTRLD (4) DIVERTICULOSIS COLON (W/O MENT OF HEMORRHAGE) (5) HYPERLIPIDEMIA NEC/NOS (6) HYPERTENSION NOS (7) Hysterectomy (8) MORBID OBESITY Family History Diabetes mellitus Emphysema FHx: gallbladder disease FHx: heart disease FHx: hypertension Stroke Social History Smoking Status: Current Every Day Smoker Alcohol Use: none Drug Use: none Marital Status: Housing Status: lives with family Occupation Status: retired Current/Historical Medications Scheduled Albuterol (Ventolin Hfa), 2 PUFFS INH Q6H Amlodipine (Norvasc), 5 MG PO DAILY Carvedilol (Coreg), 25 MG PO BID Cholecalciferol (Vitamin D3), 2,000 UNIT PO QDB Docusate Sodium (Stool Softener), 200 MG PO HS Enoxaparin (Lovenox), 40 MG SQ DAILY@1900 Ferrous Sulfate (Ferrous Sulfate), 325 MG PO WM Fluticasone Propionate (Flovent Hfa), 1 PUFFS INH DAILY@0630 Hydrocortisone (Topical) (Cortaid Maximum Strength), 1 APPLN TOP BID Hydromorphone Hcl (Dilaudid), 4 MG PO Q4H Levothyroxine Sodium (Synthroid), 112 MCG PO DAILY Lidocaine (Lidoderm Patch 5%), 2 PATCH TD DAILY@0700 Morphine Sulfate (Morphine Sulfate ER), 30 MG PO HS Multivitamins (Daily Estefania), 1 TAB PO QAM Nicotine (Nicoderm Cq 21MG Patch), 1 PATCH TD DAILY Nystatin (Topical) (Nystop), 1 APPLN TOP BID Pantoprazole (Protonix), 40 MG PO QAM Polyethylene Glycol 3350 (Miralax), 17 GM PO DAILY@1200 Sertraline Hcl (Zoloft), 50 MG PO QPM Warfarin Sod (Jantoven), Unknown Dose PO UNKNOWN Scheduled PRN Albuterol Sulf (Proventil 0.083% 2.5MG/3ML), 2.5 MG INH QID PRN for Wheezing Furosemide (Lasix), 20 MG PO DAILY PRN for . Guaifenesin/Dextromethorphan (Guaifenesin-Dm 100-10 mg/5Ml), 10 ML PO Q4 PRN for Cough Hydroxyzine Hcl (Atarax), 50 MG PO TID PRN for Itching Lorazepam (Ativan), 0.5 MG PO Q12 PRN for Anxiety Meclizine Hcl (Meclizine Hcl), 1 TAB PO TID PRN for Dizziness or Vertigo Ondasetron Odt (Zofran Odt), 4 MG SL Q8 PRN for Nausea Pramipexole Dihydrochloride (Pramipexole Dihydrochlori), 0.25 MG PO HS PRN for restless legs Senna (Senna Lax), 17.2 MG PO QAM PRN for Constipation Allergies Coded Allergies: Cortisone (Verified Adverse Reaction, Intermediate, "WEIRD FEELING, ) Physical Exam Vital Signs Date Time Temp Pulse Resp B/P Pulse Ox O2 Delivery O2 Flow Rate FiO2 07/20/16 19:13 36.9 68 20 129/65 94 Room Air Physical Exam GENERAL: Patient awake, alert, oriented x 3. Patient follows commands. Patient does not appear toxic. Patient is adequately hydrated and well- nourished. SKIN: No erythema, pallor, cyanosis or rash HEENT: Normal head, pupils equal, reactive to light and accommodation. Ears normal. Oral cavity and posterior pharynx appear normal. Neck: Without adenopathy, no neck vein distention. LUNGS: Clear to auscultation. No wheezes, no rales, no rhonchi. HEART: No murmurs. No gallops. No rubs ABDOMEN: No masses, no rebound, no hepatomegaly or splenomegaly. EXTREMITIES: Healing stapled incision on the lateral aspect of the left hip with surrounding erythema, no current bleeding, unable to express any blood from incision site. No signs of trauma. No pedal or pretibial edema. No calf or thigh tenderness. NEUROLOGIC: Cranial nerves II-XII within normal limits. No gross motor sensory function deficits. Medical Decision & Procedures Laboratory Results 07/20/16 19:40 Red Blood Count 3.31, Mean Corpuscular Volume 99.7, Mean Corpuscular Hemoglobin 33.2, Mean Corpuscular Hemoglobin Concent 33.3, Mean Platelet Volume 9.2, Neutrophils (%) (Auto) 69.2, Lymphocytes (%) (Auto) 19.7, Monocytes (%) (Auto) 8.9, Eosinophils (%) (Auto) 1.7, Basophils (%) (Auto) 0.4, Neutrophils # (Auto) 5.70, Lymphocytes # (Auto) 1.62, Monocytes # (Auto) 0.73, Eosinophils # (Auto) 0.14, Basophils # (Auto) 0.03 07/20/16 19:40 Test 07/20/16 19:40 White Blood Count 8.23 K/uL (4.8-10.8) Red Blood Count 3.31 M/uL (4.2-5.4) Hemoglobin 11.0 g/dL (12.0-16.0) Hematocrit 33.0 % (37-47) Mean Corpuscular Volume 99.7 fL (80-100) Mean Corpuscular Hemoglobin 33.2 pg (25-34) Mean Corpuscular Hemoglobin Concent 33.3 g/dl (32-36) Platelet Count 198 K/uL (130-400) Mean Platelet Volume 9.2 fL (7.4-10.4) Neutrophils (%) (Auto) 69.2 % Lymphocytes (%) (Auto) 19.7 % Monocytes (%) (Auto) 8.9 % Eosinophils (%) (Auto) 1.7 % Basophils (%) (Auto) 0.4 % Neutrophils # (Auto) 5.70 K/uL (1.4-6.5) Lymphocytes # (Auto) 1.62 K/uL (1.2-3.4) Monocytes # (Auto) 0.73 K/uL (0.11-0.59) Eosinophils # (Auto) 0.14 K/uL (0-0.5) Basophils # (Auto) 0.03 K/uL (0-0.2) RDW Standard Deviation 53.5 fL (36.4-46.3) RDW Coefficient of Variation 14.8 % (11.5-14.5) Immature Granulocyte % (Auto) 0.1 % Immature Granulocyte # (Auto) 0.01 K/uL (0.00-0.02) Anion Gap 5.0 mmol/L (3-11) Est Creatinine Clear Calc Drug Dose 92.7 ml/min Estimated GFR () 103.1 Estimated GFR (Non- 89.0 BUN/Creatinine Ratio 18.7 (10-20) Calcium Level 8.6 mg/dl (8.5-10.1) Laboratory results as stated above per my review. ED Course 1906: Past medical records reviewed. The patient was evaluated in room C1. A complete history and physical examination was performed. 1957: Discussed the patient's case with Dr. Avalos - Orthopedic Surgery. He does not believe that the patient requires treatment at this time. He also said to have the patient call the office tomorrow morning to schedule an appointment this week for follow-up in the office. 2008: Upon reevaluation, the patient appeared to have improvement of her symptoms. I discussed today's findings with her. She verbalized agreement of the treatment plan. She was discharged home. Medical Decision Nurses notes reviewed. Medical history sheet reviewed. Differential diagnosis includes but is not limited to: status post hip replacement, wound dehiscence, hematoma, seroma, postop infection. Upon examination there is no blood around incision nor can I express any blood with gentle pressure around the incision. The patient does have approximately a 1-2 cm of erythema on both sides of the incision. Otherwise there does not appear to be signs of infection or seroma/hematoma. The patient remains afebrile and has a normal white count. Her hemoglobin is slightly lower than it was 2 days ago. After speaking with Dr. Avalos we both agree that the patient can return to [facility] without antibiotics but she will be encouraged to follow up with Dr. Steele's group this week. Consults Time Called: 1955 Consulting Physician: Dr. Avalos - Orthopedic Surgery Returned Call: 1957 Discussed the patient's case with Dr. Avalos - Orthopedic Surgery. He does not believe that the patient requires treatment at this time. He also said to have the patient call the office tomorrow morning to schedule an appointment this week for follow-up in the office. Impression Primary Impression: Status post hip replacement Scribe Attestation The scribe's documentation has been prepared under my direction and personally reviewed by me in its entirety. I confirm that the note above accurately reflects all work, treatment, procedures, and medical decision making performed by me. Departure Information Dispostion Rehab Inpatient Facility Referrals Courtney Jules DO (PCP) Pierre Steele M.D. Forms HOME CARE DOCUMENTATION FORM, IMPORTANT VISIT INFORMATION, WORK / SCHOOL INSTRUCTIONS Patient Instructions My [facility] Additional Instructions Follow-up appointment this week with orthopedics. Continue all of your current medications as prescribed. Problem Qualifiers Primary Impression: Status post hip replacement Laterality: left Qualified Codes: Z96.642 - Presence of left artificial hip joint
[2016-07-20 19:55] LABS: BASO % 0.4 %; BASO ABS # 0.03 K/uL (0-0.2); COMPLETE YES; EOS % 1.7 %; IG% 0.1 %; LYMPH % 19.7 %; LYMPH ABS # 1.62 K/uL (1.2-3.4); MEAN CELL VOLUME 99.7 fL (80-100); MEAN CORPUSCULAR HEMOGLOBIN 33.2 pg (25-34); MEAN CORPUSCULAR HGB CONC 33.3 g/dl (32-36); MEAN PLATELET VOLUME 9.2 fL (7.4-10.4); MONO % 8.9 %; NEUT % 69.2 %; PLATELET COUNT 198 K/uL (130-400); RED BLOOD COUNT 3.31 M/uL (4.2-5.4); WHITE BLOOD COUNT 8.23 K/uL (4.8-10.8)
[2016-07-20] MEDS ORDERED: NCDT21X TD (20:08)
[2016-07-20] MEDS ORDERED: ENOX40IN SQ (20:08)
[2016-07-20] MEDS ORDERED: NYST100010 TOP (20:08)
[2016-07-20] MEDS ORDERED: CHOL20005 PO (20:08)
[2016-07-20] MEDS ORDERED: NF656 TD (20:08)
[2016-07-20] MEDS ORDERED: POLY335019 PO (20:08)
[2016-07-20] MEDS ORDERED: WARF10TA4 PO (20:08)
[2016-07-20 20:12] LABS: BUN/CREATININE RATIO 18.7 (10-20); CALCIUM 8.6 mg/dl (8.5-10.1); CREATININE 0.63 mg/dl (0.60-1.20); POTASSIUM 4.1 mmol/L (3.5-5.1)
[2016-07-20 21:02] VITALS: BP 117/59; PULSE 82; O2SAT 96
== END 2016-07-20 21:05 | disposition home or self-care (01) ==
LOC: EDBD 18:41 → C.EDC 18:42
DX: Z96.642 Presence of left artificial hip joint (principal); K74.60 Unspecified cirrhosis of liver; E11.9 Type 2 diabetes mellitus without complications; I10 Essential (primary) hypertension; E78.5 Hyperlipidemia, unspecified; E66.01 Morbid (severe) obesity due to excess calories; Z83.3 Family history of diabetes mellitus; Z82.49 Family history of ischemic heart disease and other diseases of the circulatory system; Z82.0 Family history of epilepsy and other diseases of the nervous system; F17.200 Nicotine dependence, unspecified, uncomplicated; K57.92 Diverticulitis of intestine, part unspecified, without perforation or abscess without bleeding

== ENCOUNTER → 2016-08-08 | Outpatient (CLI) | payer OTHER, MEDICARE ==
[~2016-08-08] MED LIST changes: -CHOL1000 PO; +CHOL20005 PO; +ENOX40IN SQ; -LSN40 PO; -LVNIS40 SQ; -MRLP17 PO; +NCDT21X TD; +NF656 TD; -NYSS5 PO; +NYST100010 TOP; -ORTHO WARFARIN NOMOGRAM; +POLY335019 PO; +WARF10TA4 PO
[2016-08-08 17:54] LABS: BENZODIAZEPINE, URINE NEG (NEG); COCAINE,URINE NEG (NEG); PHENCYCLIDINE, URINE NEG (NEG)
[2016-08-11 10:42] LABS: COD UR NEGATIVE NG/ML (CUTOFF=50); HYDROCOD UR NEGATIVE NG/ML (CUTOFF=50); HYDROMOR UR 15700 NG/ML (CUTOFF=50); MORPHINE UR >20000 NG/ML (CUTOFF=50); NORHYDROCODONE CONF UR NEGATIVE NG/ML (CUTOFF=50); OXYMORPH UR NEGATIVE NG/ML (CUTOFF=50)
--- NOTE | 2016-08-16 07:55 | CODING QUERY MEDICAL NECESSITY ---
CQSUPPORTING DIAGNOSIS NEEDED A supporting diagnosis is required for the test/procedure performed on this patient in order for us to be reimbursed by the patient's insurance. Please provide a supporting diagnosis for the following test/procedure listed below next to the test name along with your signature. *If there is no additional diagnosis for this patient that would support the following test/procedure please document that below next to the test/procedure. Test(s)/Procedure(s) that require a supporting diagnosis: DOS 08/08/16 CONTROLLED SUBSTANCE MONITORING Provider Signature: Date: Thank you Cleo Hooks Health Information Management Once completed, please kindly fax back to [phone] For questions please call [phone]
== END | disposition home or self-care (01) ==
LOC: C.LABPBG 11:56
PROVIDERS: ATTEND Family Medicine
DX: Z51.81 Encounter for therapeutic drug level monitoring (principal)

== ENCOUNTER → 2016-08-22 | Outpatient (CLI) | payer OTHER, MEDICARE | END | disposition home or self-care (01) | LOC: C.RDSM 12:58 | PROVIDERS: ATTEND Physical Medicine & Rehabilitation Sports Medicine | DX: M25.552 Pain in left hip (principal) ==

== ENCOUNTER → 2016-09-12 | Outpatient (CLI) | payer OTHER, MEDICARE ==
[2016-09-12 13:53] LABS: BASO % 0.4 %; BASO ABS # 0.03 K/uL (0-0.2); COMPLETE YES; EOS % 1.6 %; HEMATOCRIT 46.4 % (37-47); IG% 0.1 %; LYMPH % 28.1 %; LYMPH ABS # 1.88 K/uL (1.2-3.4); MEAN CELL VOLUME 101.3 fL (80-100); MEAN CORPUSCULAR HGB CONC 32.5 g/dl (32-36); MEAN PLATELET VOLUME 11.3 fL (7.4-10.4); MONO % 8.5 %; NEUT % 61.3 %; PLATELET COUNT 178 K/uL (130-400); RED BLOOD COUNT 4.58 M/uL (4.2-5.4); WHITE BLOOD COUNT 6.68 K/uL (4.8-10.8)
== END | disposition home or self-care (01) ==
LOC: C.LABPBG 10:12
PROVIDERS: ATTEND Nurse Practitioner Adult Health
DX: E03.9 Hypothyroidism, unspecified (principal); S72.009A Fracture of unspecified part of neck of unspecified femur, initial encounter for closed fracture; X58.XXXA Exposure to other specified factors, initial encounter

== ENCOUNTER → 2016-10-21 | Outpatient (CLI) | payer OTHER, MEDICARE ==
[~2016-10-21] MED LIST changes: -FERR1TAB62 PO; +FERR325T PO
== END | disposition home or self-care (01) ==
LOC: C.LABPBG 11:20
PROVIDERS: ATTEND Nurse Practitioner Adult Health
DX: R74.8 Abnormal levels of other serum enzymes (principal)

== ENCOUNTER → 2016-11-24 | Outpatient (CLI) | payer OTHER, MEDICARE ==
[2016-11-24 17:47] LABS: ALT/SGPT 34 U/L (12-78); BLOOD UREA NITROGEN 7 mg/dl (7-18); BUN/CREATININE RATIO 10.9 (10-20); C-REACTIVE PROTEIN 0.88 mg/dl (0-0.29); CARBON DIOXIDE 31 mmol/L (21-32); CHLORIDE 104 mmol/L (98-107); CREATININE 0.68 mg/dl (0.60-1.20); GLUCOSE 77 mg/dl (70-99); SODIUM 139 mmol/L (136-145); URIC ACID 4.2 mg/dl (2.6-7.2)
[2016-11-24 17:53] LABS: BASO % 0.6 %; BASO ABS # 0.04 K/uL (0-0.2); COMPLETE YES; EOS % 1.6 %; IG% 0.2 %; LYMPH % 27.5 %; LYMPH ABS # 1.76 K/uL (1.2-3.4); MEAN CELL VOLUME 101.9 fL (80-100); MEAN CORPUSCULAR HEMOGLOBIN 32.9 pg (25-34); MEAN CORPUSCULAR HGB CONC 32.3 g/dl (32-36); MEAN PLATELET VOLUME 12.1 fL (7.4-10.4); MONO % 9.5 %; NEUT % 60.6 %; PLATELET COUNT 153 K/uL (130-400); RED BLOOD COUNT 4.22 M/uL (4.2-5.4); WHITE BLOOD COUNT 6.39 K/uL (4.8-10.8)
[2016-11-24 17:57] LABS: ALB/GLOB RATIO 0.8 (0.9-2); ALKALINE PHOSPHATASE 112 U/L (45-117); AST/SGOT 51 U/L (15-37); RHEUMATOID FACTOR < 10.0 U/mL (0-15)
[2016-11-24 18:31] LABS: LYME DISEASE AB IGG NEG (NEG); LYME DISEASE AB IGM NEG (NEG)
== END | disposition home or self-care (01) ==
LOC: C.LABPBG 12:49
PROVIDERS: ATTEND Family Medicine
DX: M79.1 Myalgia (principal)

== ENCOUNTER → 2016-11-30 | Outpatient (CLI) | payer OTHER, MEDICARE | END | disposition home or self-care (01) | LOC: C.RDSM 07:06 | PROVIDERS: ATTEND Physical Medicine & Rehabilitation Sports Medicine | DX: S72.142A Displaced intertrochanteric fracture of left femur, initial encounter for closed fracture (principal); X58.XXXA Exposure to other specified factors, initial encounter ==

== ENCOUNTER → 2017-01-24 | Outpatient (CLI) | payer OTHER, MEDICARE ==
[2017-01-24 13:01] LABS: ALT/SGPT 26 U/L (12-78); BLOOD UREA NITROGEN 9 mg/dl (7-18); CALCIUM 8.7 mg/dl (8.5-10.1); CARBON DIOXIDE 29 mmol/L (21-32); CHLORIDE 106 mmol/L (98-107); CHOLESTEROL 167 mg/dl (0-200); CREATININE 0.75 mg/dl (0.60-1.20); GLUCOSE 90 mg/dl (70-99); POTASSIUM 4.4 mmol/L (3.5-5.1); SODIUM 140 mmol/L (136-145); TRIGLYCERIDES 116 mg/dl (0-150); VERY LOW DENSITY LIPOPROT CALC 23 mg/dl
[2017-01-24 13:10] LABS: ALB/GLOB RATIO 0.9 (0.9-2); ALKALINE PHOSPHATASE 76 U/L (45-117); AST/SGOT 30 U/L (15-37); CHOLESTEROL/HDL RATIO 3.6; HDL CHOLESTEROL 46 mg/dl; LDL CHOLESTEROL CALCULATED 98 mg/dl
[2017-01-24 13:19] LABS: ESTIMATED AVERAGE GLUCOSE 74 mg/dl; HA1C FLAG Normal (Normal)
[2017-01-24 15:20] LABS: CREATININE RANDOM URINE 96.6 mg/dl
[2017-01-24 15:31] LABS: RATIO 5.6 mcg/mg (0-30.0)
== END | disposition home or self-care (01) ==
LOC: C.LABPBG 10:40
PROVIDERS: ATTEND Family Medicine
DX: E78.5 Hyperlipidemia, unspecified (principal); I10 Essential (primary) hypertension; E11.9 Type 2 diabetes mellitus without complications; E03.9 Hypothyroidism, unspecified

== ENCOUNTER → 2017-03-27 | Outpatient (CLI) | payer OTHER, MEDICARE ==
[~2017-03-27] MED LIST changes: +FERR1TAB62 PO; -FERR325T PO
[2017-03-27 12:23] LABS: BASO % 0.5 %; BASO ABS # 0.03 K/uL (0-0.2); COMPLETE YES; EOS % 1.5 %; HEMATOCRIT 44.5 % (37-47); IG% 0.2 %; LYMPH % 27.5 %; LYMPH ABS # 1.62 K/uL (1.2-3.4); MEAN CELL VOLUME 98.9 fL (80-100); MEAN CORPUSCULAR HEMOGLOBIN 32.7 pg (25-34); MEAN PLATELET VOLUME 11.7 fL (7.4-10.4); MONO % 11.5 %; NEUT % 58.8 %; PLATELET COUNT 162 K/uL (130-400); WHITE BLOOD COUNT 5.89 K/uL (4.8-10.8)
[2017-03-27 12:52] LABS: BLOOD UREA NITROGEN 9 mg/dl (7-18); BUN/CREATININE RATIO 11.5 (10-20); CALCIUM 9.1 mg/dl (8.5-10.1); CARBON DIOXIDE 32 mmol/L (21-32); CHLORIDE 101 mmol/L (98-107); CREATININE 0.74 mg/dl (0.60-1.20); GLUCOSE 99 mg/dl (70-99); POTASSIUM 3.9 mmol/L (3.5-5.1); SODIUM 137 mmol/L (136-145)
[2017-03-27 14:02] LABS: LYME DISEASE AB IGG NEG (NEG); LYME DISEASE AB IGM NEG (NEG)
== END | disposition home or self-care (01) ==
LOC: C.LABPBG 09:37
PROVIDERS: ATTEND Family Medicine
DX: R53.81 Other malaise (principal); M25.50 Pain in unspecified joint; I10 Essential (primary) hypertension; E11.9 Type 2 diabetes mellitus without complications

== ENCOUNTER → 2017-12-04 | Outpatient (CLI) | payer OTHER, MEDICARE ==
[~2017-12-04] MED LIST changes: -AMLO-110 PO; +AMLO5TAB3 PO
[2017-12-04 16:52] LABS: BLOOD UREA NITROGEN 11 mg/dl (7-18); CALCIUM 8.1 mg/dl (8.5-10.1); CARBON DIOXIDE 26 mmol/L (21-32); CREATININE 0.75 mg/dl (0.60-1.20); GLUCOSE 117 mg/dl (70-99); POTASSIUM 4.3 mmol/L (3.5-5.1); SODIUM 138 mmol/L (136-145)
[2017-12-04 16:56] LABS: BASO % 0.5 %; BASO ABS # 0.03 K/uL (0-0.2); EOS % 1.3 %; EOS ABS # 0.08 K/uL (0-0.5); HEMATOCRIT 44.1 % (37-47); HEMOGLOBIN 14.5 g/dL (12.0-16.0); IG# 0.01 K/uL (0.00-0.02); LYMPH % 23.8 %; LYMPH ABS # 1.52 K/uL (1.2-3.4); MEAN CELL VOLUME 104.5 fL (80-100); MEAN CORPUSCULAR HEMOGLOBIN 34.4 pg (25-34); MEAN CORPUSCULAR HGB CONC 32.9 g/dl (32-36); MEAN PLATELET VOLUME 11.6 fL (7.4-10.4); MONO % 9.2 %; MONO ABS # 0.59 K/uL (0.11-0.59); NEUT ABS # 4.16 K/uL (1.4-6.5); PLATELET COUNT 138 K/uL (130-400); RED CELL DISTRIBUTION WIDTH CV 12.7 % (11.5-14.5); RED CELL DISTRIBUTION WIDTH SD 48.4 fL (36.4-46.3); WHITE BLOOD COUNT 6.39 K/uL (4.8-10.8)
== END | disposition home or self-care (01) ==
LOC: C.LABPBG 12:51
PROVIDERS: ATTEND Physician Assistant
DX: G47.19 Other hypersomnia (principal); E55.9 Vitamin D deficiency, unspecified

== ENCOUNTER 2018-09-17 05:12 | Inpatient (IN) ==
[2018-09-17] MEDS ORDERED: SODIUM CHLORIDE 0.9% 500 ML IV SCH (05:30)
[2018-09-17] MEDS ORDERED: PANTOprazole 80 MG in DEXTROSE 5% 100 ML IV SCH (05:30)
[2018-09-17] MEDS: PANTOprazole 40 MG in DEXTROSE 5% 100 ML IV SCH ×5 (05:48→21:19)
[2018-09-17 05:49] LABS: INR 1.3 (0.9-1.1); Prothrombin Time 13.5 Seconds (9.0-12.0)
[2018-09-17 05:50] LABS: Hematocrit (blood only) 22.8 % (37-47); Hemoglobin 6.6 g/dL (12.0-16.0); Mean Corpuscular Hgb Conc 28.9 g/dL (32-36); Mean Corpuscular Volume 87.4 fL (80-100); Platelet Count 404 K/uL (130-400); RDW Coefficient of Variation 17.6 % (11.5-14.5); RDW Standard Deviation 56.2 fL (36.4-46.3); Red Blood Count 2.61 M/uL (4.2-5.4); White Blood Count 15.85 K/uL (4.8-10.8)
[2018-09-17] MEDS ORDERED: SODIUM CHLORIDE 0.9% 250 ML IV PRN (05:53)
[2018-09-17 05:57] LABS: Albumin Level 2.7 gm/dl (3.4-5.0); Calcium 8.9 mg/dl (8.5-10.1); Creatinine Clr Calc Pharmacy 61.9 ml/min; Est GFR (Non-African American) 63.8; Magnesium 1.9 mg/dl (1.8-2.4); Potassium 4.7 mmol/L (3.5-5.1)
[2018-09-17] MEDS ORDERED: ONDANSETRON INJ 2 MG/ML 2 ML VIAL IV STA (05:59)
[2018-09-17 06:02] LABS: Albumin Globulin Ratio 0.6 (0.9-2); Bilirubin,Total 0.6 mg/dl (0.2-1); Globulin 4.2 gm/dl (2.5-4.0); Total Protein 6.9 gm/dl (6.4-8.2); Troponin I 0.03 ng/ml (0-0.045)
[2018-09-17 06:06] LABS: Basophils # (auto) 0.01 K/uL (0-0.2); Basophils % (auto) 0.1 %; Hypochromasia Present; Immature Granulocytes # (auto) 0.04 K/uL (0.00-0.02); Immature Granulocytes % (auto) 0.3 %; Lymphocytes # (auto) 1.92 K/uL (1.2-3.4); Lymphocytes % (auto) 12.1 %; Monocytes # (auto) 0.87 K/uL (0.11-0.59); Monocytes % (auto) 5.5 %; Neutrophils # (auto) 13.01 K/uL (1.4-6.5); Polychromasia 1+
[2018-09-17] MEDS ORDERED: cefTRIAXone SODIUM 1,000 MG/50 ML BAG IV STA (06:28)
[2018-09-17] MEDS ORDERED: OCTREOTIDE BOLUS FROM BAG IV ONE (06:45)
--- NOTE | 2018-09-17 06:49 | XRay Report ---
XR chest 1V portable CLINICAL HISTORY: 78 years-old Female presenting with sob. TECHNIQUE: Portable upright AP view of the chest was obtained. COMPARISON: 07/07/2016. FINDINGS: Atherosclerosis of the aortic arch. Cardiac silhouette borderline enlarged. Mildly low lung volumes. Focal opacity at the right apex partially obscured by overlying external leads. This measures 2 cm in diameter. This correlates with the nodule at the right apex evident on prior CT from 2016 though inc reased density is possible on the current radiograph. Diffusely coarsened lung markings. No other foc al opacity. No pleural effusion or pneumothorax. Osseous structures normal. Upper abdomen normal. IMPRESSION: 1. 2 cm right apical nodule, which may have increased in density since the prior exam. As the last r ecorded CT was performed in 2016, repeat contrast enhanced CT is recommended as this is consistent wi th a primary prostatic neoplasm. Progression of disease is not excluded. 2. No acute cardiopulmonary disease. The report will be called/faxed according to standard departmental protocol. Electronically signed by: Todd Kraft M.D. 09/17/2018 6:47 AM
[2018-09-17] MEDS: OCTREOTIDE ACETATE 500 MCG in 0.9 % SODIUM CHLORIDE 100 ML IV SCH ×2 (06:58→16:26)
[2018-09-17] MEDS ORDERED: METOCLOPRAMIDE HCL INJ 5 MG/ML 2 ML VIAL IV ONE (07:07)
--- NOTE | 2018-09-17 07:13 | History & Physical Report ---
Date of Service September 17, 2018 Assessment & Plan (1) 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: Current concern for upper GI bleed possibly variceal bleed. Patient is kept n.p.o. a GI consult is undertaken she will have octreotide and Protonix drip and volume resuscitation with Normosol. She is transfused 2 units packed red blood cells we will check a hemoglobin at noon pt zonia did have lower blood pressure that responded to volume ressusitation concern for ascites and elevation of wbc will start zosyn and consider a therapeutic paracentesis (2) Hypertension: Patient typically takes carvedilol 25mg twice daily this will be held she also takes amlodipine which be held and aspirin for coronary disease which is also being held (3) Hypothyroidism: To be on Synthroid 125 should be converted to IV at 75 (4) Diabetes mellitus, type 2: Diabetes is listed on her problem list her blood glucose is 131 presentation at the current time I do not see any significant medications to help with this subsequently we believe this might be diet controlled (5) Depression with anxiety: Typical on Zoloft therapy is been worse of late as her recently is been diagnosed with metastatic cancer (6) Solitary pulmonary nodule: This is been noted in her history however intake chest x-ray is concerned for changes in this nodule we will enroll her in the lung nodule clinic (7) DVT prophylaxis: SCDs History of Present Illness Primary Care Provider: Courtney Jules DO 78-year-old female patient with a known history of mass Jones and cirrhosis. She has been having increasing ascites over the last few weeks and was scheduled for an outpatient large-volume paracentesis through [facility] gastroenterology. Patient presented this morning after having dark black bowel movements and being increasingly weak and pale appearing to her family. In the ER she is found to have a hemoglobin of 6 and a systolic blood pressure of 90. Patient responded to volume resuscitation she is currently being transfused. And no time did she have any vomiting of blood or coffee grounds. She is known to have portal hypertension esophageal varices. In the ER she is currently on octreotide and Protonix drip she is being transfused packed red blood cells she will be transferred to the intensive care unit for further evaluation and possible upper endoscopy Her INR is 1.3 on presentation platelets are 404 she does take aspirin Allergies Allergy/AdvReac Type Severity Reaction Status Date / Time cortisone AdvReac Intermediate "WEIRD Verified 09/17/18 05:59 FEELING Home Medications Home Medications Medication Instructions Recorded Confirmed Type cholecalciferol (vitamin D3) 5,000 5,000 unit PO DAILY #30 tab 08/17/18 09/17/18 History unit tablet ferrous sulfate 325 mg (65 mg 325 mg PO TID tab 08/17/18 09/17/18 History iron) tablet amlodipine 5 mg tablet 5 mg PO DAILY #90 tab 09/07/18 09/17/18 Rx blood sugar diagnostic strips #50 ea 09/07/18 09/17/18 Rx carvedilol 25 mg tablet 25 mg PO BID #180 tab 09/07/18 09/17/18 Rx levothyroxine 125 mcg tablet 125 mcg PO QAM #90 tab 09/07/18 09/17/18 Rx ondansetron 4 mg disintegrating 4 mg PO .DISSOLVE 1 TO 2 TABL #90 09/07/18 09/17/18 Rx tablet tab pantoprazole 40 mg tablet,delayed 40 mg PO QAM #90 tab 09/07/18 09/17/18 Rx release polyethylene glycol 3350 17 17 g PO DAILY PRN gm 09/07/18 09/17/18 History gram/dose oral powder pramipexole 0.25 mg tablet 0.25 mg PO QPM PRN #90 tab 09/07/18 09/17/18 Rx sertraline 50 mg tablet 50 mg PO DAILY #90 tab 09/07/18 09/17/18 Rx hydromorphone 2 mg tablet 2 mg PO Q8H PRN #90 tab 09/10/18 09/17/18 Rx cannabidiol (CBD) 100 mg/mL oral See Rx Instructions .ROUTE 09/14/18 09/17/18 Rx solution .COMPLEX #100 ml aspirin 325 mg PO DAILY 09/17/18 09/17/18 History cyanocobalamin (vitamin B-12) 1,000 mcg PO DAILY 09/17/18 09/17/18 History [Vitamin B-12] ranitidine HCl 300 mg PO HS 09/17/18 09/17/18 History Past Med/Surg History Medical History Asthma RARELY USES PRN INH Hypertension Hypothyroidism GERD (gastroesophageal reflux disease) Osteoarthritis Diabetes mellitus, type 2 DIET CONTROLLED Esophageal varices Depression with anxiety COPD (chronic obstructive pulmonary disease) Esophageal varices in cirrhosis Vitamin D deficiency Solitary pulmonary nodule Restless legs syndrome Portal hypertension Osteoporosis Irritable bowel syndrome Dyslipidemia Chronic reflux esophagitis Nausea & vomiting (02/03/13) Abnormal finding on lung imaging PT REPORTS "SPOTS ON LUNGS" - UPCOMING APPT WITH DR. THORNE TO EVALUATE. 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 ARAIZA Surgical History History of colonoscopy W/ POLYPECTOMY History of esophagogastroduodenoscopy (EGD) History of hip surgery LT - HARDWARE PRESENT History of surgery on extremity RLE - HARDWARE PRESENT History of tonsillectomy History of total abdominal hysterectomy and bilateral salpingo-oophorectomy History of tubal ligation Family History Mother Family history of diabetes mellitus Daughter Family history of diabetes mellitus Social History Preferred Language: Vietnamese Communication Ability: Effective Senior Net Web Developer Required: No Beliefs That Will Affect Care: None marital status: Current Living Situation: Spouse current occupational status: retired Other Information That Helps Us Care for You: No Feels Safe at Home: Yes Safety Concerns: Feels Safe At This Time Smoking Status: Current every day smoker Tobacco Type: cigarettes Cigarettes Per Day: 20 Do You Dip or Chew Tobacco: No Second Hand Exposure: No Tobacco Cessation Education Requested by Patient: No Hx Alcohol Use: No Hx Substance Use: No caffeine: Yes Review of Systems Review of Systems: ROS: Patient complains of fatigue and family feels she looks pale No double vision blurry vision No problems with speech or swallowing No palpitations, chest pain or pressure No Wheezing or breathing issues Diffuse abdominal pain worse with movement and exam, no nausea vomiting dark bowel movements recently no vomiting No burning urine urine frequency or changes in color No focal joint pain or muscle pain No skin rashes or oral lesions No unusual bruising or bleeding No focused back pain or numbness or loss of strength No changes in memory or confusion Physical Exam Physical Exam: The patient appeared pale and weak with a protuberant abdomen Vital signs as documented. Initial hypotension improved with fluids Head exam is unremarkable. normocephalic, atraumatic Pale conjunctiva Neck is without jugular venous distension, thyromegaly, or lymphademopathy Lungs are clear to auscultation and percussion. Cardiac exam reveals Rhythm is regular. First and second heart sounds normal. Abdominal exam reveals protuberant distended abdomen with what appears to be a fluid wave tender to exam no guarding significant rebound Extremities are nonedematous and both pedal pulses are present Neurologic exam is A&Ox3, no focal deficits, strength is equal bilateral Psychologically seems depressed Skin is warm Dry without bruises or lesions Results & Data Vital Signs (Past 12 Hours) Vital Signs Temp Pulse Pulse Resp BP BP Pulse Ox 09/17/18 07:05 110 H 20 111/57 L 93 09/17/18 06:49 98 H 22 133/67 99 09/17/18 06:20 102 H 24 109/74 100 09/17/18 06:07 98 H 22 90/59 L 100 09/17/18 05:35 96 H 22 119/66 97 09/17/18 05:18 36.7 C 99 H 24 120/76 96 CXR : 2 cm right apical nodule, which may have increased in density since the prior exam. As the last recorded CT was performed in 2016, repeat contrast enhanced CT is recommended as this is consistent with a primary neoplasm.
--- NOTE | 2018-09-17 08:12 | Gastrointestinal Consultation ---
Date of Consultation September 17, 2018 Assessment & Plan (1) GI bleed: 78 year old female wit history of NAFLD cirrhosis, grade 2 esophageal varices & portal HTN gastropathy on carvedilol and new ascites undergoing planned outpatient paracentesis this week who presets in the ED w/ report of dark, tarry stools and symtpomatic anemia since Monday evening. Denies any coffee ground emesis, hematemesis or BRBPR. She is awake, alert and oriented w/ systlic BP 110's in the ER, undergoing transfer to the ICU. 1 unit RBC running, on IV ABX, octreotide, protonix. Received a dose of IV reglan. NPO Continue IV ABX Continue IV PPI drip Continue IV octreotide drip EGD timing and location to be discussed Trend H&H Transfuse PRN Monitor and document all GI output Attg add: I interviewed and examined pt, reviewed chart and labs. Pt with cirrhosis, known varices; also lung cancer receiving XRt, now with melena and ascites. Urgent EGD today. Once clinically stable, hepatic duplex Diagnostic and therapeutic paracentesis once clinically stable Thank you for allowing us to participate in the care of this patient. Please call with any acute changes, questions or concerns. Please see addendum below with additional recommendation from my supervising physician. (2) Esophageal varices: (3) Cirrhosis: (4) Ascites: History of Present Illness Reason for Consultation: Pamela Requesting Physician: michael Attending Physician: Pamela History of Present Illness 78 year old female with history of T2DM, HTN, GERD, cirrhosis who prsented through the ED w/ report of melena since Monday evening. Pt was seen and evaluated in the ED. Chart reviewed. Known from prior OP appointments. Has been lost to follow up recently secondary to unfortunate diagnosis if w/ metastatic cancer. Has been reported abd distention as an OP trying to undergo OP paracentesis. Notes Monday after ABD US developed dark, tarry stools. These persisted Monday, worsened on Monday and had grew concerned and urged ED evaluation. She denies any BRBPR. Mild nausea but no vomiting. Denies prior episodes of coffee ground emesis/hematemsis. She is tired, weak, lightheaded. No CP, SOB. In the ED, she is afebrile w/ leukocytosis, started on ceftriaxone. HGB 6.6, BUN 44 w/ normal BUSINESS DEVELOPMENT CONSULTANT. INR 1.3. She was made NPO, started on IV bolus/drip of octreotide and Protonix. 1 unit RBC hanging. Systolic BP 110's. Currently being transferred to the ICU. Diagnosis: NAFLD cirrhosis Decompensations Ascites: large volume Varices: yes, grade II on carvedilol Hepatic Encephalopathy: none � Screenings EGD: 2020 RUQ US: due Immunizations: status unknown EGD 2019: Normal upper third of esophagus and middle third ofesophagus. Non- bleeding grade II esophageal varices. Portal hypertensive gastropathy.Normal examined duodenum. No specimens collected. Colonoscopy 2018: The examined portion of the ileum was normal. Two 4 to 6 mm polyps in the ascending colon, removed witha cold snare. Resected and retrieved. One 5 mm polyp in the transverse colon, removed with acold snare. Resected and retrieved.Moderate diverticulosis in the sigmoid colon.Melanosis in the colon. Internal hemorrhoids. The examination was otherwise normal. � Allergies Allergy/AdvReac Type Severity Reaction Status Date / Time cortisone AdvReac Intermediate "WEIRD Verified 09/17/18 05:59 FEELING Home Medications Home Medications Medication Instructions Recorded Confirmed Type cholecalciferol (vitamin D3) 5,000 5,000 unit PO DAILY #30 tab 08/17/18 09/17/18 History unit tablet ferrous sulfate 325 mg (65 mg 325 mg PO TID tab 08/17/18 09/17/18 History iron) tablet amlodipine 5 mg tablet 5 mg PO DAILY #90 tab 09/07/18 09/17/18 Rx blood sugar diagnostic strips #50 ea 09/07/18 09/17/18 Rx carvedilol 25 mg tablet 25 mg PO BID #180 tab 09/07/18 09/17/18 Rx levothyroxine 125 mcg tablet 125 mcg PO QAM #90 tab 09/07/18 09/17/18 Rx ondansetron 4 mg disintegrating 4 mg PO .DISSOLVE 1 TO 2 TABL #90 09/07/18 09/17/18 Rx tablet tab pantoprazole 40 mg tablet,delayed 40 mg PO QAM #90 tab 09/07/18 09/17/18 Rx release polyethylene glycol 3350 17 17 g PO DAILY PRN gm 09/07/18 09/17/18 History gram/dose oral powder pramipexole 0.25 mg tablet 0.25 mg PO QPM PRN #90 tab 09/07/18 09/17/18 Rx sertraline 50 mg tablet 50 mg PO DAILY #90 tab 09/07/18 09/17/18 Rx hydromorphone 2 mg tablet 2 mg PO Q8H PRN #90 tab 09/10/18 09/17/18 Rx cannabidiol (CBD) 100 mg/mL oral See Rx Instructions .ROUTE 09/14/18 09/17/18 Rx solution .COMPLEX #100 ml aspirin 325 mg PO DAILY 09/17/18 09/17/18 History cyanocobalamin (vitamin B-12) 1,000 mcg PO DAILY 09/17/18 09/17/18 History [Vitamin B-12] ranitidine HCl 300 mg PO HS 09/17/18 09/17/18 History Patient History Medical History Asthma RARELY USES PRN INH Hypertension Hypothyroidism GERD (gastroesophageal reflux disease) Osteoarthritis Diabetes mellitus, type 2 DIET CONTROLLED Esophageal varices Depression with anxiety COPD (chronic obstructive pulmonary disease) Esophageal varices in cirrhosis Vitamin D deficiency Solitary pulmonary nodule Restless legs syndrome Portal hypertension Osteoporosis Irritable bowel syndrome Dyslipidemia Chronic reflux esophagitis Nausea & vomiting (02/03/13) Abnormal finding on lung imaging PT REPORTS "SPOTS ON LUNGS" - UPCOMING APPT WITH DR. THORNE TO EVALUATE. 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 Beliefs That Will Affect Care: None marital status: Current Living Situation: Spouse current occupational status: retired Other Information That Helps Us Care for You: No Feels Safe at Home: Yes Safety Concerns: Feels Safe At This Time Smoking Status: Current every day smoker Tobacco Type: cigarettes Cigarettes Per Day: 20 Do You Dip or Chew Tobacco: No Second Hand Exposure: No Tobacco Cessation Education Requested by Patient: No Hx Alcohol Use: No Hx Substance Use: No caffeine: Yes Review of Systems Constitutional: + fatigue and + weakness; no fever and no chills Respiratory: + dyspnea; no cough and no chest congestion Cardiovascular: no chest pain, no chest pain at rest and no syncope Gastrointestinal: + abdominal pain, + bloating and + melena (Started Monday evening); no belching, no heartburn, no vomiting, no coffee ground emesis, no hematemesis and no blood in stools Physical Exam Constitutional: + ill appearing (pale, noting abd pain and pressure) Neck: trachea midline Respiratory: normal respiratory effort, lungs clear to auscultation Cardiovascular: RRR, no murmur, no edema Gastrointestinal (Abdomen): Inspection/Auscultation: + abdomen distended and normal bowel sounds Percussion/Palpation: + abdomen tender, abdomen soft and + ascites (large volume); no guarding and abdomen not rigid Skin: pale Psychiatric: A+Ox3, euthymic affect Results & Data Vital Signs (Past 12 Hours) Vital Signs Temp Pulse Pulse Resp BP BP Pulse Ox 09/17/18 08:00 100 H 20 115/65 98 09/17/18 07:45 37.2 C 97 H 24 102/63 99 09/17/18 07:29 37.4 C 100 H 14 111/57 L 93 09/17/18 07:05 110 H 20 111/57 L 93 09/17/18 06:49 98 H 22 133/67 99 09/17/18 06:20 102 H 24 109/74 100 09/17/18 06:07 98 H 22 90/59 L 100 09/17/18 05:35 96 H 22 119/66 97 09/17/18 05:18 36.7 C 99 H 24 120/76 96 Laboratory Results 09/17/18 09/17/18 09/17/18 Range/Units 05:22 05:22 05:22 WBC 15.85 H (4.8-10.8) K/uL RBC 2.61 L (4.2-5.4) M/uL Hgb 6.6 L* (12.0-16.0) g/dL Hct 22.8 L (37-47) % MCV 87.4 (80-100) fL MCH 25.3 (25-34) pg MCHC 28.9 L (32-36) g/dL RDW Std Deviation 56.2 H (36.4-46.3) fL RDW Coeff of Mile 17.6 H (11.5-14.5) % Plt Count 404 H (130-400) K/uL MPV 10.0 (7.4-10.4) fL Immature Gran % (Auto) 0.3 % Neut % (Auto) 82.0 % Lymph % (Auto) 12.1 % Giles % (Auto) 5.5 % Eos % (Auto) 0.0 % Baso % (Auto) 0.1 % Immature Gran # (Auto) 0.04 H (0.00-0.02) K/uL Neut # (Auto) 13.01 H (1.4-6.5) K/uL Lymph # (Auto) 1.92 (1.2-3.4) K/uL Giles # (Auto) 0.87 H (0.11-0.59) K/uL Eos # (Auto) 0.00 (0-0.5) K/uL Baso # (Auto) 0.01 (0-0.2) K/uL Hypersegmented Neuts 1+ Polychromasia 1+ Hypochromasia Present PT 13.5 H (9.0-12.0) Seconds INR 1.3 H (0.9-1.1) Sodium 140 (136-145) mmol/L Potassium 4.7 (3.5-5.1) mmol/L Chloride 104 (98-107) mmol/L Carbon Dioxide 29 (21-32) mmol/L Anion Gap 7.0 (3-11) BUN 44 H (7-18) mg/dl Creatinine 0.88 (0.6-1.2) mg/dl Est Cr Clr Drug Dosing 61.9 ml/min Est GFR ( Amer) 74.0 Est GFR (Non-Af Amer) 63.8 BUN/Creatinine Ratio 50.0 H (10-20) Glucose 134 H (70-99) mg/dl Calcium 8.9 (8.5-10.1) mg/dl Magnesium 1.9 (1.8-2.4) mg/dl Total Bilirubin 0.6 (0.2-1) mg/dl AST 36 (15-37) U/L ALT 22 (12-78) U/L Alkaline Phosphatase 68 (45-117) U/L Troponin I 0.030 (0-0.045) ng/ml NT-Pro-B Natriuret Pep 245 (0-1800) pg/ml Total Protein 6.9 (6.4-8.2) gm/dl Albumin 2.7 L (3.4-5.0) gm/dl Globulin 4.2 H (2.5-4.0) gm/dl Albumin/Globulin Ratio 0.6 L (0.9-2) Lipase 62 L (73-393) U/L Blood Type Antibody Screen Crossmatch 09/17/18 Range/Units 05:22 WBC (4.8-10.8) K/uL RBC (4.2-5.4) M/uL Hgb (12.0-16.0) g/dL Hct (37-47) % MCV (80-100) fL MCH (25-34) pg MCHC (32-36) g/dL RDW Std Deviation (36.4-46.3) fL RDW Coeff of Mile (11.5-14.5) % Plt Count (130-400) K/uL MPV (7.4-10.4) fL Immature Gran % (Auto) % Neut % (Auto) % Lymph % (Auto) % Giles % (Auto) % Eos % (Auto) % Baso % (Auto) % Immature Gran # (Auto) (0.00-0.02) K/uL Neut # (Auto) (1.4-6.5) K/uL Lymph # (Auto) (1.2-3.4) K/uL Giles # (Auto) (0.11-0.59) K/uL Eos # (Auto) (0-0.5) K/uL Baso # (Auto) (0-0.2) K/uL Hypersegmented Neuts Polychromasia Hypochromasia PT (9.0-12.0) Seconds INR (0.9-1.1) Sodium (136-145) mmol/L Potassium (3.5-5.1) mmol/L Chloride (98-107) mmol/L Carbon Dioxide (21-32) mmol/L Anion Gap (3-11) BUN (7-18) mg/dl Creatinine (0.6-1.2) mg/dl Est Cr Clr Drug Dosing ml/min Est GFR ( Amer) Est GFR (Non-Af Amer) BUN/Creatinine Ratio (10-20) Glucose (70-99) mg/dl Calcium (8.5-10.1) mg/dl Magnesium (1.8-2.4) mg/dl Total Bilirubin (0.2-1) mg/dl AST (15-37) U/L ALT (12-78) U/L Alkaline Phosphatase (45-117) U/L Troponin I (0-0.045) ng/ml NT-Pro-B Natriuret Pep (0-1800) pg/ml Total Protein (6.4-8.2) gm/dl Albumin (3.4-5.0) gm/dl Globulin (2.5-4.0) gm/dl Albumin/Globulin Ratio (0.9-2) Lipase (73-393) U/L Blood Type A Positive Antibody Screen NEGATIVE Crossmatch See Detail (1) GI bleed GI bleed type/associated pathology: unspecified gastrointestinal hemorrhage type Qualified Code(s): K92.2 - Gastrointestinal hemorrhage, unspecified (2) Ascites Ascites type: other type Qualified Code(s): R18.8 - Other ascites (3) Esophageal varices Esophageal varices bleeding: with bleeding Esophageal varices type: unspecified type Qualified Code(s): I85.01 - Esophageal varices with bleeding (4) Cirrhosis Ascites presence: with ascites Hepatic cirrhosis type: unspecified hepatic cirrhosis Qualified Code(s): K74.60 - Unspecified cirrhosis of liver; R18.8 - Other ascites
--- NOTE | 2018-09-17 08:24 | Emergency Department Note ---
Entered by Jessica Randall acting as a scribe for History of Present Illness General Chief complaint: Abdominal Pain Stated complaint: abdominal pain Source: patient History of Present Illness Onset (ago): day(s) (this evening) Location: abdomen Pain Consistency: + other (worsening) Maximum Pain Intensity: 4 Current Pain Intensity: 4 Quality: + other (hard and round) Associated symptoms: + diaphoresis, + nausea/vomiting (nausea), + weakness and + other (tired, melena, diarrhea, pale); no chest pain, no fever/chills and no shortness of breath The patient is a 78 year old female who presents to the ED with complaints of weakness, fatigue and abodminal pain starting this evening. The patient�s daughter states that a few weeks ago the patient had a routine endoscopy done since she has a history of GERD. She states that everything looked great, but following that she started retaining fluid in her abdomen. She states that since then her abdomen has gotten bigger, harder, and rounder. She states that on Monday she finally took her to her PCP who did an x-ray, blood work, and ultra sounds. She states that it showed that she had fluid on her abdomen. She states that they wanted it drained and they arranged for it to be done so this coming Monday, in 4 days. The patient�s daughter states that yesterday the patient spent the entire day in bed. She states that she called her and she said that she was just tired and felt weak. She notes that she has had these complaints for the past week and she just chalked it up to her abdomen being full. The patient�s daughter states that about 2 hours ago her step father called and said that she had been to the bathroom but didn�t make it. She reports that when she showed up she had dark black stool all over herself, the bed, the bathroom, and the hallway. She states that she was white as a ghost and sweaty. She notes that she was complaining of her abdominal pain. The patient currently rates her pain as a 4/10 in severity. The patient complains of nausea and diarrhea for the last 2 days. The patient denies fever, chills, shortness of breath, chest pain, and a history of a GI bleed. The patient�s daughter notes that she recently has had colonoscopy that went well as well. She notes that her cirrhosis is believed to be from medications as she has never drank alcohol in her life. Home Medications Home Medications Medication Instructions Recorded Confirmed Type cholecalciferol (vitamin D3) 5,000 5,000 unit PO DAILY #30 tab 08/17/18 09/17/18 History unit tablet ferrous sulfate 325 mg (65 mg 325 mg PO TID tab 08/17/18 09/17/18 History iron) tablet amlodipine 5 mg tablet 5 mg PO DAILY #90 tab 09/07/18 09/17/18 Rx blood sugar diagnostic strips #50 ea 09/07/18 09/17/18 Rx carvedilol 25 mg tablet 25 mg PO BID #180 tab 09/07/18 09/17/18 Rx levothyroxine 125 mcg tablet 125 mcg PO QAM #90 tab 09/07/18 09/17/18 Rx ondansetron 4 mg disintegrating 4 mg PO .DISSOLVE 1 TO 2 TABL #90 09/07/18 09/17/18 Rx tablet tab pantoprazole 40 mg tablet,delayed 40 mg PO QAM #90 tab 09/07/18 09/17/18 Rx release polyethylene glycol 3350 17 17 g PO DAILY PRN gm 09/07/18 09/17/18 History gram/dose oral powder pramipexole 0.25 mg tablet 0.25 mg PO QPM PRN #90 tab 09/07/18 09/17/18 Rx sertraline 50 mg tablet 50 mg PO DAILY #90 tab 09/07/18 09/17/18 Rx hydromorphone 2 mg tablet 2 mg PO Q8H PRN #90 tab 09/10/18 09/17/18 Rx cannabidiol (CBD) 100 mg/mL oral See Rx Instructions .ROUTE 09/14/18 09/17/18 Rx solution .COMPLEX #100 ml aspirin 325 mg PO DAILY 09/17/18 09/17/18 History cyanocobalamin (vitamin B-12) 1,000 mcg PO DAILY 09/17/18 09/17/18 History [Vitamin B-12] ranitidine HCl 300 mg PO HS 09/17/18 09/17/18 History Allergies Allergy/AdvReac Type Severity Reaction Status Date / Time cortisone AdvReac Intermediate "WEIRD Verified 09/17/18 05:59 FEELING Past Med/Surg History Medical History Asthma RARELY USES PRN INH Hypertension Hypothyroidism GERD (gastroesophageal reflux disease) Osteoarthritis Diabetes mellitus, type 2 DIET CONTROLLED Esophageal varices Depression with anxiety COPD (chronic obstructive pulmonary disease) Esophageal varices in cirrhosis Vitamin D deficiency Solitary pulmonary nodule Restless legs syndrome Portal hypertension Osteoporosis Irritable bowel syndrome Dyslipidemia Chronic reflux esophagitis Nausea & vomiting (02/03/13) Abnormal finding on lung imaging PT REPORTS "SPOTS ON LUNGS" - UPCOMING APPT WITH DR. THORNE TO EVALUATE. 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 ARAIZA Surgical History History of colonoscopy W/ POLYPECTOMY History of esophagogastroduodenoscopy (EGD) History of hip surgery LT - HARDWARE PRESENT History of surgery on extremity RLE - HARDWARE PRESENT History of tonsillectomy History of total abdominal hysterectomy and bilateral salpingo-oophorectomy History of tubal ligation Family History Mother Family history of diabetes mellitus Daughter Family history of diabetes mellitus Social History Preferred Language: Spanish Communication Ability: Effective Manager Merchandising Required: No Beliefs That Will Affect Care: None marital status: Current Living Situation: Spouse current occupational status: retired Other Information That Helps Us Care for You: No Feels Safe at Home: Yes Safety Concerns: Feels Safe At This Time Smoking Status: Current every day smoker Tobacco Type: cigarettes Cigarettes Per Day: 20 Do You Dip or Chew Tobacco: No Second Hand Exposure: No Tobacco Cessation Education Requested by Patient: No Hx Alcohol Use: No Hx Substance Use: No caffeine: Yes Review of Systems See HPI for pertinent positives & negatives. and A total of 10 systems reviewed and were otherwise negative Physical Exam Vital Signs Vital Signs - 24 hr 09/17/18 05:17 09/17/18 05:18 09/17/18 05:21 Temperature 36.7 C Temperature Source Oral Sepsis Recent Fever Within 48 Hours No Sepsis New/Unexplained Change in Mental Status No Sepsis Action Taken by Nursing No Action Required Pulse Rate 100 H 99 H 99 H Pulse Rate [Right Finger] Pulse Rate from SpO2 Sensor 100 H 98 H Respiratory Rate 24 Respiratory Effort / Characteristics Non-Labored Spontaneous Respiratory Depth Normal Respiratory Pattern Regular Blood Pressure 120/76 120/76 Blood Pressure [Right Arm] Blood Pressure Mean 90 90 Blood Pressure Mean [Right Arm] Blood Pressure Position Lying Blood Pressure Position [Right Arm] Pulse Oximetry 91 96 92 Oxygen Delivery Method Room Air Oxygen Flow Rate 09/17/18 05:26 09/17/18 05:30 09/17/18 05:31 Temperature Temperature Source Sepsis Recent Fever Within 48 Hours Sepsis New/Unexplained Change in Mental Status Sepsis Action Taken by Nursing Pulse Rate 100 H 103 H 100 H Pulse Rate [Right Finger] Pulse Rate from SpO2 Sensor 101 H 107 H 101 H Respiratory Rate Respiratory Effort / Characteristics Respiratory Depth Respiratory Pattern Blood Pressure 97/64 L 119/66 Blood Pressure [Right Arm] Blood Pressure Mean 75 83 Blood Pressure Mean [Right Arm] Blood Pressure Position Blood Pressure Position [Right Arm] Pulse Oximetry 94 79 L 100 Oxygen Delivery Method Oxygen Flow Rate 09/17/18 05:35 09/17/18 05:40 09/17/18 05:50 Temperature Temperature Source Sepsis Recent Fever Within 48 Hours Sepsis New/Unexplained Change in Mental Status Sepsis Action Taken by Nursing Pulse Rate 95 H 105 H Pulse Rate [Right Finger] 96 H Pulse Rate from SpO2 Sensor 94 H 108 H Respiratory Rate 22 Respiratory Effort / Characteristics Non-Labored Spontaneous Respiratory Depth Normal Respiratory Pattern Regular Blood Pressure Blood Pressure [Right Arm] 119/66 Blood Pressure Mean Blood Pressure Mean [Right Arm] 83 Blood Pressure Position Blood Pressure Position [Right Arm] Lying Pulse Oximetry 97 96 100 Oxygen Delivery Method Nasal Cannula Oxygen Flow Rate 2 09/17/18 06:00 09/17/18 06:01 09/17/18 06:07 Temperature Temperature Source Sepsis Recent Fever Within 48 Hours Sepsis New/Unexplained Change in Mental Status Sepsis Action Taken by Nursing Pulse Rate 99 H 97 H Pulse Rate [Right Finger] 98 H Pulse Rate from SpO2 Sensor 99 H 98 H Respiratory Rate 22 Respiratory Effort / Characteristics Non-Labored Spontaneous Respiratory Depth Normal Respiratory Pattern Regular Blood Pressure 90/59 L Blood Pressure [Right Arm] 90/59 L Blood Pressure Mean 69 Blood Pressure Mean [Right Arm] 69 Blood Pressure Position Blood Pressure Position [Right Arm] Lying Pulse Oximetry 99 98 100 Oxygen Delivery Method Nasal Cannula Oxygen Flow Rate 2 09/17/18 06:10 09/17/18 06:18 09/17/18 06:19 Temperature Temperature Source Sepsis Recent Fever Within 48 Hours Sepsis New/Unexplained Change in Mental Status Sepsis Action Taken by Nursing Pulse Rate 96 H 105 H 105 H Pulse Rate [Right Finger] Pulse Rate from SpO2 Sensor 96 H 108 H 105 H Respiratory Rate Respiratory Effort / Characteristics Respiratory Depth Respiratory Pattern Blood Pressure 109/74 Blood Pressure [Right Arm] Blood Pressure Mean 181 85 Blood Pressure Mean [Right Arm] Blood Pressure Position Blood Pressure Position [Right Arm] Pulse Oximetry 100 87 L 100 Oxygen Delivery Method Oxygen Flow Rate 09/17/18 06:20 09/17/18 06:21 09/17/18 06:30 Temperature Temperature Source Sepsis Recent Fever Within 48 Hours Sepsis New/Unexplained Change in Mental Status Sepsis Action Taken by Nursing Pulse Rate 102 H 97 H Pulse Rate [Right Finger] 102 H Pulse Rate from SpO2 Sensor 102 H 98 H Respiratory Rate 24 Respiratory Effort / Characteristics Non-Labored Spontaneous Respiratory Depth Normal Respiratory Pattern Regular Blood Pressure Blood Pressure [Right Arm] 109/74 Blood Pressure Mean Blood Pressure Mean [Right Arm] 85 Blood Pressure Position Blood Pressure Position [Right Arm] Lying Pulse Oximetry 100 100 96 Oxygen Delivery Method Nasal Cannula Oxygen Flow Rate 2 09/17/18 06:31 09/17/18 06:40 09/17/18 06:49 Temperature Temperature Source Sepsis Recent Fever Within 48 Hours Sepsis New/Unexplained Change in Mental Status Sepsis Action Taken by Nursing Pulse Rate 95 H 103 H Pulse Rate [Right Finger] 98 H Pulse Rate from SpO2 Sensor 95 H 103 H Respiratory Rate 22 Respiratory Effort / Characteristics Non-Labored Spontaneous Respiratory Depth Normal Respiratory Pattern Regular Blood Pressure 133/67 Blood Pressure [Right Arm] 133/67 Blood Pressure Mean 89 Blood Pressure Mean [Right Arm] 89 Blood Pressure Position Blood Pressure Position [Right Arm] Lying Pulse Oximetry 96 100 99 Oxygen Delivery Method Nasal Cannula Oxygen Flow Rate 2 09/17/18 06:50 09/17/18 06:52 09/17/18 07:00 Temperature Temperature Source Sepsis Recent Fever Within 48 Hours Sepsis New/Unexplained Change in Mental Status Sepsis Action Taken by Nursing Pulse Rate 95 H 100 H 98 H Pulse Rate [Right Finger] Pulse Rate from SpO2 Sensor 95 H 100 H 98 H Respiratory Rate Respiratory Effort / Characteristics Non-Labored Spontaneous Respiratory Depth Normal Respiratory Pattern Regular Blood Pressure 109/66 Blood Pressure [Right Arm] Blood Pressure Mean 80 Blood Pressure Mean [Right Arm] Blood Pressure Position Blood Pressure Position [Right Arm] Pulse Oximetry 97 100 98 Oxygen Delivery Method Nasal Cannula Oxygen Flow Rate 2 09/17/18 07:01 09/17/18 07:05 09/17/18 07:10 Temperature Temperature Source Sepsis Recent Fever Within 48 Hours Sepsis New/Unexplained Change in Mental Status Sepsis Action Taken by Nursing Pulse Rate 95 H 102 H Pulse Rate [Right Finger] 110 H Pulse Rate from SpO2 Sensor 93 H 104 H Respiratory Rate 20 Respiratory Effort / Characteristics Non-Labored Respiratory Depth Normal Respiratory Pattern Blood Pressure 111/57 L Blood Pressure [Right Arm] 111/57 L Blood Pressure Mean 75 Blood Pressure Mean [Right Arm] 75 Blood Pressure Position Blood Pressure Position [Right Arm] Pulse Oximetry 94 93 100 Oxygen Delivery Method Nasal Cannula Oxygen Flow Rate 2 09/17/18 07:20 Temperature Temperature Source Sepsis Recent Fever Within 48 Hours Sepsis New/Unexplained Change in Mental Status Sepsis Action Taken by Nursing Pulse Rate 104 H Pulse Rate [Right Finger] Pulse Rate from SpO2 Sensor 104 H Respiratory Rate Respiratory Effort / Characteristics Respiratory Depth Respiratory Pattern Blood Pressure Blood Pressure [Right Arm] Blood Pressure Mean Blood Pressure Mean [Right Arm] Blood Pressure Position Blood Pressure Position [Right Arm] Pulse Oximetry 94 Oxygen Delivery Method Oxygen Flow Rate GENERAL: alert, uncomfortable appearing, well nourished, no distress, non-toxic EYE EXAM: normal conjunctiva, PERRL and EOM's grossly intact OROPHARYNX: no exudate, no erythema, lips, buccal mucosa, and tongue normal and mucous membranes are moist, poor dentition NECK: supple, no nuchal rigidity, no adenopathy, non-tender LUNGS: Diminished breath sounds bilaterally. No wheezes, rhonchi, or rales. Normal chest wall mechanics HEART: no murmurs, S1 normal and S2 normal ABDOMEN: Protuberant abdomen with positive fluid wave, dull to percussion, non- tender, normo-active bowel sounds, no masses, no rebound or guarding. RECTAL: External hemorrhoids and skin tags. Melanotic stool that is heme positive on guaic testing. BACK: Back is symmetrical on inspection and there is no deformity, no midline tenderness, no CVA tenderness. SKIN: Pale and diaphoretic. No rashes and no bruising, no jaundice or scleral icterus, no petechiae UPPER EXTREMITIES: upper extremities are grossly normal. FROM, nml pulses b/l. LOWER EXTREMITIES: No pitting edema. FROM, nml pulses b/l. NEURO EXAM: Normal sensorium, cranial nerves II-XII grossly intact, normal speech, no gross weakness of arms, no gross weakness of legs. No facial droop. Course 0502: I took medical command call on the patient at this time. 0512: Past medical records reviewed. The patient was evaluated in room B1. A complete history and physical exam was performed. 0542: I reevaluated the patient and updated her and her family on her test results. The patient is on a Protonix drip. 0554: I reviewed the patient's records at this time. On September 14 her H&H was 8.3 and 29.4. 0556: I reevaluated the patient and had her sign for blood at this time. Vital signs stable at this time. Patient mentating well. 0626: I discussed the patient's case with Dr. Kirsten SAMS. He agrees with the octreotide drip and a gram of Rocephin at this time. 0639: I discussed the patient's case with Dr. Joey FOSTER Hospitalist. She will evaluate the patient for further management. 0646: I reevaluated the patient and she is hemodynamically stable and resting. I updated her and her family on her test results and the treatment plan. They verbally agree and understand. 0705: I discussed the patient's case with Dr. Salvador- Building Certifier. Pt hemodynamically stable at this time. 0715: I reevaluated the patient and her pressure is stable. She is slightly tachycardic. Consultations Consultation #1: I discussed the patient's case with Dr. Kirsten ASMS. He agrees with the octreotide drip and a gram of Rocephin at this time. Time: 06:26 Consultation #2: I discussed the patient's case with Dr. Jeoy FOSTER Hospitalist. She will evaluate the patient for further management. Time: :39 Consultation #3: I discussed the patient's case with Dr. Salvador- Building Certifier. He accepts the patient to the unit. Time: 07:05 Administered Medications Hydromorphone HCl (Dilaudid) 1 mg IV Q4 PRN; Protocol PRN Reason: Pain Stop: 10/01/18 11:14 Last Admin: 09/17/18 21:41 Dose: 1 mg Documented by: [id number] Admin: 09/17/18 16:52 Dose: 1 mg Documented by: [id number] Pantoprazole Sodium 40 mg/ (Dextrose) 100 mls @ 20 mls/hr IV Q5H MONIQUE Stop: 09/19/18 10:44 Last Admin: 09/17/18 21:19 Dose: Not Given Documented by: [id number] Admin: 09/17/18 21:18 Dose: 20 mls/hr Documented by: [id number] Infusion: 09/17/18 20:48 Dose: 20 mls/hr Documented by: [id number] Admin: 09/17/18 15:48 Dose: 20 mls/hr Documented by: [id number] Infusion: 09/17/18 15:41 Dose: 20 mls/hr Documented by: [id number] Admin: 09/17/18 10:41 Dose: 20 mls/hr Documented by: [id number] Infusion: 09/17/18 10:41 Dose: 20 mls/hr Documented by: [id number] Admin: 09/17/18 05:48 Dose: 20 mls/hr Documented by: [id number] Octreotide Acetate 500 mcg/ (Sodium Chloride) 105 mls @ 10.5 mls/hr IV .Q10H MONIQUE Stop: 09/19/18 06:44 Last Admin: 09/17/18 16:26 Dose: 50 mcg/hr, 10.5 mls/hr Documented by: [id number] Infusion: 09/17/18 16:26 Dose: 50 mcg/hr, 10.5 mls/hr Documented by: [id number] Admin: 09/17/18 06:58 Dose: 50 mcg/hr, 10.5 mls/hr Documented by: [id number] Parenteral Electrolytes (Normosol-R) 1,000 mls @ 125 mls/hr IV .Q8H MONIQUE Stop: 10/17/18 08:37 Last Admin: 09/17/18 21:11 Dose: 125 mls/hr Documented by: [id number] Infusion: 09/17/18 20:30 Dose: 125 mls/hr Documented by: [id number] Admin: 09/17/18 12:30 Dose: 125 mls/hr Documented by: [id number] Levothyroxine Sodium 75 mcg/ (Syringe) 3.75 mls @ 2 mls/min IV DAILY@0900 MONIQUE Stop: 10/17/18 08:59 Last Admin: 09/17/18 09:41 Dose: 2 mls/min Documented by: [id number] Piperacillin Sod/Tazobactam (Sod 4.5 gm/ Dextrose) 120 mls @ 30 mls/hr IV Q8H [facility]; Protocol Stop: 09/27/18 21:59 Last Admin: 09/17/18 22:12 Dose: 30 mls/hr Documented by: [id number] Ioversol (Optiray 320 100ml) 94 ml IV ONCE PRN PRN Reason: Interaction Checking Stop: 09/21/18 13:51 Last Admin: 09/17/18 13:53 Dose: 94 ml Documented by: [id number] Miscellaneous (Icu Electrolyte Replacement Protocol) 1 ea N/A QAM [facility] Stop: 09/24/18 08:59 Last Admin: 09/17/18 10:04 Dose: Not Given Documented by: [id number] Ondansetron HCl (Zofran) 4 mg IV Q6H PRN PRN Reason: Nausea Stop: 10/17/18 16:54 Last Admin: 09/17/18 23:29 Dose: 4 mg Documented by: [id number] Discontinued Medications Ethanolamine Oleate (Ethamolin) Confirm Administered Dose 2 ml IV .STK-MED ONE Stop: 09/17/18 12:02 Last Admin: 09/17/18 14:52 Dose: Not Given Documented by: [id number] Hydromorphone HCl (Dilaudid) Confirm Administered Dose 1 mg .ROUTE .STK-MED ONE Stop: 09/17/18 11:21 Last Admin: 09/17/18 11:24 Dose: 1 mg Documented by: [id number] Sodium Chloride (Nss) 500 mls @ 125 mls/hr IV .Q4H [facility] Stop: 10/17/18 05:29 Last Infusion: 09/17/18 08:43 Dose: 0 mls/hr Documented by: [id number] Admin: 09/17/18 05:34 Dose: 125 mls/hr Documented by: [id number] Pantoprazole Sodium 80 mg/ (Dextrose) 120 mls @ 480 mls/hr IV 0530 [facility] Stop: 09/17/18 05:44 Last Infusion: 09/17/18 05:47 Dose: 0 mls/hr Documented by: [id number] Admin: 09/17/18 05:34 Dose: 480 mls/hr Documented by: [id number] Ceftriaxone Sodium (Rocephin) 1,000 mg in 50 mls @ 100 mls/hr IV NOW STA Stop: 09/17/18 06:57 Last Infusion: 09/17/18 07:00 Dose: 0 mls/hr Documented by: [id number] Admin: 09/17/18 06:34 Dose: 100 mls/hr Documented by: [id number] Piperacillin Sod/Tazobactam (Sod 4.5 gm/ Dextrose) 120 mls @ 240 mls/hr IV TODAY@1615 ONE; Protocol Stop: 09/17/18 16:44 Last Infusion: 09/17/18 17:00 Dose: 0 mls/hr Documented by: [id number] Admin: 09/17/18 16:26 Dose: 240 mls/hr Documented by: [id number] Metoclopramide HCl (Reglan) 5 mg IV ONE ONE Stop: 09/17/18 07:08 Last Admin: 09/17/18 07:23 Dose: 5 mg Documented by: [id number] Morphine Sulfate (Morphine Sulfate) 2 mg IV Q4 PRN PRN Reason: Pain Stop: 10/01/18 08:43 Last Admin: 09/17/18 08:57 Dose: 2 mg Documented by: [id number] Morphine Sulfate (Morphine Sulfate) 4 mg IV Q4 PRN PRN Reason: Pain Stop: 10/01/18 08:43 Last Admin: 09/17/18 09:35 Dose: 2 mg Documented by: [id number] Octreotide Acetate (Sandostatin Bolus From Bag) 50 mcg IV ONE ONE Stop: 09/17/18 06:46 Last Admin: 09/17/18 06:59 Dose: 50 mcg Documented by: [id number] Ondansetron HCl (Zofran) 4 mg IV NOW STA Stop: 09/17/18 06:00 Last Admin: 09/17/18 06:03 Dose: 4 mg Documented by: [id number] Ondansetron HCl (Zofran) Confirm Administered Dose 4 mg .ROUTE .STK-MED ONE Stop: 09/17/18 16:49 Last Admin: 09/17/18 16:51 Dose: 4 mg Documented by: [id number] Polyethylene Glycol/Electrolytes (Golytely) 16 dose PO TODAY@1530 [facility]IQUE Stop: 09/17/18 23:59 Last Admin: 09/17/18 15:49 Dose: 16 dose Documented by: [id number] Medical Decision Making Differential Diagnosis Differential diagnosis: Etiologies such as esophagitis, variceal bleed, Boerhaave�s, Yarnell-Oviedo tear, gastritis, peptic ulcer disease, AVM, inflammatory bowel disease, ischemia, diverticulosis, colitis, malignancy, coagulopathy, thrombocytopenia, fissure, hemorrhoid, epistaxis , as well as others were entertained. Medical Records Attestation: I reviewed the patient's medical records. Home Medications Current Medication List: was personally reviewed by me Laboratory Data Attestation: I reviewed the patient's lab results. Result diagrams: 09/17/18 13:15 09/17/18 05:22 Lab Results 09/17/18 09/17/18 09/17/18 Range/Units 05:22 05:22 05:22 WBC 15.85 H (4.8-10.8) K/uL RBC 2.61 L (4.2-5.4) M/uL Hgb 6.6 L* (12.0-16.0) g/dL Hct 22.8 L (37-47) % MCV 87.4 (80-100) fL MCH 25.3 (25-34) pg MCHC 28.9 L (32-36) g/dL RDW Std Deviation 56.2 H (36.4-46.3) fL RDW Coeff of Mile 17.6 H (11.5-14.5) % Plt Count 404 H (130-400) K/uL MPV 10.0 (7.4-10.4) fL Immature Gran % (Auto) 0.3 % Neut % (Auto) 82.0 % Lymph % (Auto) 12.1 % [place] % (Auto) 5.5 % Eos % (Auto) 0.0 % Baso % (Auto) 0.1 % Immature Gran # (Auto) 0.04 H (0.00-0.02) K/uL Neut # (Auto) 13.01 H (1.4-6.5) K/uL Lymph # (Auto) 1.92 (1.2-3.4) K/uL [place] # (Auto) 0.87 H (0.11-0.59) K/uL Eos # (Auto) 0.00 (0-0.5) K/uL Baso # (Auto) 0.01 (0-0.2) K/uL Hypersegmented Neuts 1+ Polychromasia 1+ Hypochromasia Present PT 13.5 H (9.0-12.0) Seconds INR 1.3 H (0.9-1.1) Sodium (136-145) mmol/L Potassium (3.5-5.1) mmol/L Chloride (98-107) mmol/L Carbon Dioxide (21-32) mmol/L Anion Gap (3-11) BUN (7-18) mg/dl Creatinine (0.6-1.2) mg/dl Est Cr Clr Drug Dosing ml/min Est GFR ( Amer) Est GFR (Non-Af Amer) BUN/Creatinine Ratio (10-20) Glucose (70-99) mg/dl Calcium (8.5-10.1) mg/dl Magnesium (1.8-2.4) mg/dl Total Bilirubin (0.2-1) mg/dl AST (15-37) U/L ALT (12-78) U/L Alkaline Phosphatase (45-117) U/L Troponin I (0-0.045) ng/ml NT-Pro-B Natriuret Pep (0-1800) pg/ml Total Protein (6.4-8.2) gm/dl Albumin (3.4-5.0) gm/dl Globulin (2.5-4.0) gm/dl Albumin/Globulin Ratio (0.9-2) Lipase (73-393) U/L Blood Type A Positive Antibody Screen NEGATIVE Crossmatch See Detail 09/17/18 Range/Units 05:22 WBC (4.8-10.8) K/uL RBC (4.2-5.4) M/uL Hgb (12.0-16.0) g/dL Hct (37-47) % MCV (80-100) fL MCH (25-34) pg MCHC (32-36) g/dL RDW Std Deviation (36.4-46.3) fL RDW Coeff of Mile (11.5-14.5) % Plt Count (130-400) K/uL MPV (7.4-10.4) fL Immature Gran % (Auto) % Neut % (Auto) % Lymph % (Auto) % [place] % (Auto) % Eos % (Auto) % Baso % (Auto) % Immature Gran # (Auto) (0.00-0.02) K/uL Neut # (Auto) (1.4-6.5) K/uL Lymph # (Auto) (1.2-3.4) K/uL [place] # (Auto) (0.11-0.59) K/uL Eos # (Auto) (0-0.5) K/uL Baso # (Auto) (0-0.2) K/uL Hypersegmented Neuts Polychromasia Hypochromasia PT (9.0-12.0) Seconds INR (0.9-1.1) Sodium 140 (136-145) mmol/L Potassium 4.7 (3.5-5.1) mmol/L Chloride 104 (98-107) mmol/L Carbon Dioxide 29 (21-32) mmol/L Anion Gap 7.0 (3-11) BUN 44 H (7-18) mg/dl Creatinine 0.88 (0.6-1.2) mg/dl Est Cr Clr Drug Dosing 61.9 ml/min Est GFR ( Amer) 74.0 Est GFR (Non-Af Amer) 63.8 BUN/Creatinine Ratio 50.0 H (10-20) Glucose 134 H (70-99) mg/dl Calcium 8.9 (8.5-10.1) mg/dl Magnesium 1.9 (1.8-2.4) mg/dl Total Bilirubin 0.6 (0.2-1) mg/dl AST 36 (15-37) U/L ALT 22 (12-78) U/L Alkaline Phosphatase 68 (45-117) U/L Troponin I 0.030 (0-0.045) ng/ml NT-Pro-B Natriuret Pep 245 (0-1800) pg/ml Total Protein 6.9 (6.4-8.2) gm/dl Albumin 2.7 L (3.4-5.0) gm/dl Globulin 4.2 H (2.5-4.0) gm/dl Albumin/Globulin Ratio 0.6 L (0.9-2) Lipase 62 L (73-393) U/L Blood Type Antibody Screen Crossmatch Imaging Data Radiologist's Impression: Radiology results as stated below per my review and the radiologist's interpretation: XR chest 1V portable CLINICAL HISTORY: 78 years-old Female presenting with sob. TECHNIQUE: Portable upright AP view of the chest was obtained. COMPARISON: 07/07/2016. FINDINGS: Atherosclerosis of the aortic arch. Cardiac silhouette borderline enlarged. Mildly low lung volumes. Focal opacity at the right apex partially obscured by overlying external leads. This measures 2 cm in diameter. This correlates with the nodule at the right apex evident on prior CT from 2016 though increased density is possible on the current radiograph. Diffusely coarsened lung markings. No other focal opacity. No pleural effusion or pneumothorax. Osseous structures normal. Upper abdomen normal. IMPRESSION: 1. 2 cm right apical nodule, which may have increased in density since the prior exam. As the last recorded CT was performed in 2016, repeat contrast enhanced CT is recommended as this is consistent with a primary prostatic neoplasm. Progression of disease is not excluded. 2. No acute cardiopulmonary disease. The report will be called/faxed according to standard departmental protocol. Electronically signed by: Todd Kraft M.D. 09/17/2018 6:47 AM ECG Data Attestation: I personally reviewed and interpreted this ECG as follows: Indication: abdominal pain Rate (beats per minute): 97 Rhythm: sinus rhythm Findings: + other (normal axis, normal intervals, erratic baseline); no ST depression, no ST elevation and no acute ischemic change Blood Pressure Blood Pressure Findings: Normal blood pressure Blood Pressure Disposition: did not require urgent referral MDM Narrative Patient presented here markedly pale, diaphoretic, however hemodynamically stable complaining of increased weakness, melanotic stools, and abdominal pain. Patient with obvious protuberant abdomen consistent with ascites. Patient found to be profoundly anemic, with heme positive stools on guaiac testing, and was started on a Protonix drip, gentle IV fluid rehydration, blood products ordered, and after additional discussion with GI and octreotide drip was added. Given need for likely urgent endoscopy, patient be admitted to the intensive care unit. Case was discussed with the hospitalist. Patient remained hemodynamically stable in the emergency room. She was made aware of all results and verbalized understanding of need for additional inpatient evaluation and management and was in agreement. Patient and family made aware of critical nature of patient's condition at this time and risks of additional associated bleeding. Impression & Plan GI bleed, Esophageal varices, Anemia, Cirrhosis, Ascites Critical Care Time Critical Care Time: Yes Total Critical Care Time: 94 I have personally spent 94 minutes of critical care time in the direct management of this patient. This includes bedside care, interpretation of diagnostic studies, and testing, discussion with consultants, patient, and family members, and other required patient management activities. This 94 minutes is in excess of all separately billable procedures. Discharge Plan Visit Data *Final* Discharge Date/Time: 09/17/18 08:01 Chief Complaint: Abdominal Pain Stated Complaint: abdominal pain ED Provider: Seda Nixon Discharge Problem: GI bleed, Esophageal varices, Anemia, Cirrhosis, Ascites Patient Disposition: Admitted As Inpatient Discharge Instructions Interventions: ED Discharge Assessment Last Done: 09/17/18 08:01 Discharge Problem: GI bleed Qualifiers: GI bleed type/associated pathology: unspecified gastrointestinal hemorrhage type Qualified Code(s): K92.2 - Gastrointestinal hemorrhage, unspecified Esophageal varices Qualifiers: Esophageal varices type: unspecified type Esophageal varices bleeding: with bleeding Qualified Code(s): I85.01 - Esophageal varices with bleeding Anemia Qualifiers: Anemia type: unspecified type Qualified Code(s): D64.9 - Anemia, unspecified Cirrhosis Qualifiers: Hepatic cirrhosis type: unspecified hepatic cirrhosis Ascites presence: with ascites Qualified Code(s): K74.60 - Unspecified cirrhosis of liver Ascites Qualifiers: Ascites type: other type Qualified Code(s): R18.8 - Other ascites The scribe's documentation has been prepared under my direction and personally reviewed by me in its entirety. I confirm that the note above accurately reflects all work, treatment, procedures, and medical decision making performed by me.
[2018-09-17] MEDS ORDERED: ICU PROTOCOL FOR HYPERGLYCEMIA PRN (08:38)
[2018-09-17] MEDS ORDERED: MoRPHine SULFATE 4 MG/ML 1 ML CARP\\VIAL IV PRN (08:44)
[2018-09-17] MEDS ORDERED: MoRPHine SULFATE 2 MG/ML CARP IV PRN (08:44)
[2018-09-17] MEDS: LEVOTHYROXINE SODIUM 75 MCG in SYRINGE 0 ML IV SCH (09:41)
[2018-09-17] MEDS: ICU ELECTROLYTE REPLACEMENT PROTOCOL SCH (10:04)
[2018-09-17] MEDS ORDERED: HYDROmorphone INJ 1 MG/ML SYRINGE ONE (11:20)
[2018-09-17] MEDS ORDERED: fentaNYL citrate 100 MCG/2 ML VIAL ONE (11:29)
[2018-09-17] MEDS ORDERED: ONDANSETRON INJ 2 MG/ML 2 ML VIAL ONE ×2 (11:29→16:48)
[2018-09-17] MEDS ORDERED: PROPOFOL IV EMULSION 10 MG/ML 20 ML VIAL IV ONE (11:29)
[2018-09-17] MEDS ORDERED: LIDOCAINE HCL 2% 2 ML VIAL/AMP(20MG/ML) INFIL ONE (11:29)
--- NOTE | 2018-09-17 11:43 | Anesthesiology Consultation ---
Date of Service September 17, 2018 Assessment & Plan Chart Review Chart Review: Acceptable Risk for Surgery and Patient NOT seen in Pre Admission Testing Consults Requested none ASA [id number] Proposed Anesthesia Anesthesia Type: General Risk / Benefits Reviewed With: PT / POA / Parent / Guardian, Accepts Plan and Informed Consent Obtained History Surgery Operation Date: 09/17/18 08:30 Proposed Procedures p Esophagogastroduodenoscopy for Melena - Irphan E Gaslightwala Height/Weight Height: 5 ft 4 in Weight: 98.2 kg Allergies Allergy/AdvReac Type Severity Reaction Status Date / Time cortisone AdvReac Intermediate "WEIRD Verified 09/17/18 05:59 FEELING Medications Home Medications Medication Instructions Recorded Confirmed Last Taken cholecalciferol (vitamin D3) 5,000 5,000 unit PO DAILY #30 tab 08/17/18 09/17/18 09/16/18 unit tablet ferrous sulfate 325 mg (65 mg 325 mg PO TID tab 08/17/18 09/17/18 09/16/18 iron) tablet amlodipine 5 mg tablet 5 mg PO DAILY #90 tab 09/07/18 09/17/18 09/16/18 blood sugar diagnostic strips #50 ea 09/07/18 09/17/18 Unknown carvedilol 25 mg tablet 25 mg PO BID #180 tab 09/07/18 09/17/18 09/16/18 levothyroxine 125 mcg tablet 125 mcg PO QAM #90 tab 09/07/18 09/17/18 09/16/18 ondansetron 4 mg disintegrating 4 mg PO .DISSOLVE 1 TO 2 TABL #90 09/07/18 09/17/18 Unknown tablet tab pantoprazole 40 mg tablet,delayed 40 mg PO QAM #90 tab 09/07/18 09/17/18 09/16/18 release polyethylene glycol 3350 17 17 g PO DAILY PRN gm 09/07/18 09/17/18 Unknown gram/dose oral powder pramipexole 0.25 mg tablet 0.25 mg PO QPM PRN #90 tab 09/07/18 09/17/18 Unknown sertraline 50 mg tablet 50 mg PO DAILY #90 tab 09/07/18 09/17/18 09/16/18 hydromorphone 2 mg tablet 2 mg PO Q8H PRN #90 tab 09/10/18 09/17/18 Unknown cannabidiol (CBD) 100 mg/mL oral See Rx Instructions .ROUTE 09/14/18 09/17/18 Unknown solution .COMPLEX #100 ml aspirin 325 mg PO DAILY 09/17/18 09/17/18 09/14/18 cyanocobalamin (vitamin B-12) 1,000 mcg PO DAILY 09/17/18 09/17/18 09/16/18 [Vitamin B-12] ranitidine HCl 300 mg PO HS 09/17/18 09/17/18 09/16/18 Active Medications Generic Name Dose Route Start Last Admin Trade Name Freq PRN Reason Stop Dose Admin Octreotide Acetate 500 mcg/ 105 mls @ 10.5 mls/hr 09/17/18 06:45 09/17/18 06:58 Sodium Chloride IV 09/17/18 16:44 50 mcg/hr .Q10H MONIQUE 10.5 mls/hr Administration 50 MCG/HR Levothyroxine Sodium 75 mcg/ 3.75 mls @ 2 mls/min 09/17/18 09:00 09/17/18 09:41 Syringe IV 10/17/18 08:59 2 mls/min DAILY@0900 MONIQUE Administration Miscellaneous 1 ea 09/17/18 09:00 09/17/18 10:04 Icu Electrolyte Replacement Protocol N/A 09/24/18 08:59 Not Given QAM MONIQUE Morphine Sulfate 2 mg 09/17/18 08:44 09/17/18 08:57 Morphine Sulfate IV 10/01/18 08:43 2 mg Q4 PRN Administration Pain Morphine Sulfate 4 mg 09/17/18 08:44 09/17/18 09:35 Morphine Sulfate IV 10/01/18 08:43 2 mg Q4 PRN Administration Pain NPO Date Last Intake of Fluids: 09/16/18 Time Last Intake of Fluids: 21:00 Date Last Intake of Solids: 09/15/18 Time Last Intake of Solids: 21:00 Past Medical History Medical History Asthma RARELY USES PRN INH Hypertension Hypothyroidism GERD (gastroesophageal reflux disease) Osteoarthritis Diabetes mellitus, type 2 DIET CONTROLLED Esophageal varices Depression with anxiety COPD (chronic obstructive pulmonary disease) Esophageal varices in cirrhosis Vitamin D deficiency Solitary pulmonary nodule Restless legs syndrome Portal hypertension Osteoporosis Irritable bowel syndrome Dyslipidemia Chronic reflux esophagitis Nausea & vomiting (02/03/13) Abnormal finding on lung imaging PT REPORTS "SPOTS ON LUNGS" - UPCOMING APPT WITH DR. THORNE TO EVALUATE. 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 ARAIZA Exercise / Class Metabolic Activity IV < 2 Limit ADL/Bedbound Past Family History Family History Mother Family history of diabetes mellitus Daughter Family history of diabetes mellitus Past Surgical History Surgical History History of colonoscopy W/ POLYPECTOMY History of esophagogastroduodenoscopy (EGD) History of hip surgery LT - HARD[place] PRESENT History of surgery on extremity RLE - [place]ARD[place] PRESENT History of tonsillectomy History of total abdominal hysterectomy and bilateral salpingo-oophorectomy History of tubal ligation Past Anesthesia History No Hx of Anesthesia Complications and No Family Hx of Anesthesia Complications History of PONV No Hx of PONV and No Hx of Motion Sickness Social History Smoking Status: Current every day smoker tobacco type: cigarettes Smoking cigarettes per day: 20 Do You Dip or Chew Tobacco: No Hx Alcohol Use: No Hx Substance Use: No substance use type: does not use Physical Exam Vital Signs Last Vital Signs Temp 37 C 09/17/18 11:22 Pulse 91 H 09/17/18 11:22 Resp 20 09/17/18 11:22 BP 130/58 L 09/17/18 11:22 Pulse Ox 96 09/17/18 11:22 Constitutional + obese ENMT Mouth: + edentulous Neck normal visual inspection and trachea midline; neck extension not limited Respiratory normal respiratory effort Auscultation: lungs clear to auscultation bilaterally Cardiovascular Rate/Rhythm: regular rate and regular rhythm Heart Sounds: no murmur Vessels: no carotid bruit Musculoskeletal Spine: normal cervical ROM Neurologic moves all extremities Motor/Sensory: no sensory deficit Psychiatric Orientation: alert and oriented x 3 Testing Laboratory Results 09/17/18 05:22 09/17/18 05:22 09/17/18 09/17/18 05:22 05:22 PT 13.5 H INR 1.3 H Blood Type A Positive Antibody Screen NEGATIVE Electrocardiogram Date: 09/17/18 Findings: + NSR @ (at 97;low voltage;? old infer. NC) Chest X-Ray Date: 09/17/18 Findings: + NAD and + atherosclerosis of thoracic aorta
[2018-09-17] MEDS ORDERED: ETHANOLAMINE OLEATE 5% 2 ML AMP IV ONE (12:01)
--- NOTE | 2018-09-17 12:24 | GI REPORT ---
Patient Name: Bernarda Lara Procedure Date: 09/17/2018 11:49 AM Date of : 1940 Admit Type: Inpatient Age: 78 Gender: Female Attending MD: Yulia Mcgill MD Procedure: Upper GI endoscopy Providers: Yulia Mcgill MD Referring MD: Referred Chava Livingston Indications: Melena Medicines: See the Anesthesia note for documentation of the administered medications Complications: No immediate complications. Estimated Blood Loss: Estimated blood loss: none. Procedure: Pre-Anesthesia Assessment: - ASA Grade Assessment: IV - A patient with severe systemic disease that is a constant threat to life. After obtaining informed consent, the endoscope was passed under direct vision. Throughout the procedure, the patient's blood pressure, pulse, and oxygen saturations were monitored continuously. The Scope was introduced through the mouth, and advanced to the fourth part of duodenum. The upper GI endoscopy was accomplished without difficulty. The patient tolerated the procedure well. Findings: Three columns of non-bleeding grade II varices were found in the lower third of the esophagus,. No stigmata of recent bleeding were evident and no red pee signs were present. There was mild portal gastropathy in the cardia and body of the stomach. There was bilious fluid in the stomach. The antrum was normal. The duodenum was entirely normal. There was bilious fluid throughout the duodenum. Impression: - Non-bleeding grade II esophageal varices. Mild portal gastropathy. Recommendation: - Discharge patient to ICU. - D/c PPI gtt; cont octreotide and abx pending further w/u - will request CT to eval for retroperitoneal hemorrhage and schedule cscopy for tomorrow. Yulia Mcgill M.D. Yulia Mcgill MD 09/17/2018 12:23:49 PM This report has been signed electronically. Note Initiated On: 09/17/2018 11:49 AM Number of Addenda: 0 I attest to the content of the Intraoperative Record and orders documented therein, exceptions below {[id number]}
[2018-09-17] MEDS: NORMOSOL-R 1,000 ML IV SCH ×2 (12:30→21:11)
[2018-09-17] MEDS ORDERED: ATROPINE SULFATE 0.1 MG/ML 10ML SYR IV PRN (12:36)
[2018-09-17] MEDS ORDERED: ePHEDrine sulfate 50 MG/ML AMP IV PRN (12:36)
--- NOTE | 2018-09-17 12:57 | Anesthesiology Progress Note ---
Date of Service September 17, 2018 Anesthesia Post Procedure Vital Signs Vital Signs: Temp Pulse Pulse Resp BP BP Pulse Ox 09/17/18 12:35 37.8 C H 89 17 128/56 L 93 09/17/18 11:53 37.8 C H 92 H 18 130/58 L 97 09/17/18 11:22 37 C 91 H 20 130/58 L 96 09/17/18 11:12 37.3 C 94 H 21 128/60 97 09/17/18 10:52 37.3 C 97 H 23 126/51 L 99 09/17/18 10:37 37.4 C 96 H 20 120/61 96 09/17/18 10:34 37.5 C 97 H 16 102/69 98 09/17/18 10:21 37.4 C 98 H 20 128/61 97 09/17/18 10:13 37.4 C 101 H 21 116/63 97 09/17/18 10:01 98 H 116/63 98 09/17/18 10:00 37.4 C 98 H 18 116/63 98 09/17/18 09:50 98 H 98 09/17/18 09:40 98 H 98 09/17/18 09:30 95 H 98 09/17/18 09:20 98 H 93 09/17/18 09:17 100 H 09/17/18 09:10 98 H 96 09/17/18 09:02 102 H 113/62 98 09/17/18 09:00 105 H 95 09/17/18 08:51 99 H 99 09/17/18 08:50 104 H 142/87 H 97 09/17/18 08:40 100 H 97 09/17/18 08:32 37.5 C 100 H 20 134/83 99 09/17/18 08:30 100 H 95 09/17/18 08:27 37.2 C 100 H 22 134/83 99 09/17/18 08:20 97 09/17/18 08:17 93 09/17/18 08:01 115 H 20 115/65 98 09/17/18 08:00 100 H 20 115/65 97 09/17/18 07:50 98 09/17/18 07:48 102/63 100 09/17/18 07:45 37.2 C 97 H 24 102/63 99 09/17/18 07:40 98 09/17/18 07:31 106 H 131/86 90 09/17/18 07:30 101 H 93 09/17/18 07:29 37.4 C 100 H 14 111/57 L 93 09/17/18 07:20 104 H 94 09/17/18 07:10 102 H 100 09/17/18 07:05 110 H 20 111/57 L 93 09/17/18 07:01 95 H 111/57 L 94 09/17/18 07:00 98 H 98 09/17/18 06:52 100 H 109/66 100 09/17/18 06:50 95 H 97 09/17/18 06:49 98 H 22 133/67 99 09/17/18 06:40 103 H 100 09/17/18 06:31 95 H 133/67 96 09/17/18 06:30 97 H 96 09/17/18 06:21 102 H 100 09/17/18 06:20 102 H 24 109/74 100 09/17/18 06:19 105 H 109/74 100 09/17/18 06:18 105 H 87 L 09/17/18 06:10 96 H 100 09/17/18 06:07 98 H 22 90/59 L 100 09/17/18 06:01 97 H 90/59 L 98 09/17/18 06:00 99 H 99 09/17/18 05:50 105 H 100 09/17/18 05:40 95 H 96 09/17/18 05:35 96 H 22 119/66 97 09/17/18 05:31 100 H 119/66 100 09/17/18 05:30 103 H 79 L 09/17/18 05:26 100 H 97/64 L 94 09/17/18 05:21 99 H 92 09/17/18 05:18 36.7 C 99 H 24 120/76 96 09/17/18 05:17 100 H 120/76 91 Pain Intensity Abdomen: Pain Intensity: 9 Transfer of Care Handoff Completed per policy Notes Mental Status: alert / awake / arousable Patient Amnestic to Procedure: Yes Nausea / Vomiting: adequately controlled Pain: adequately controlled Airway Patency, RR, SpO2: stable & adequate BP & HR: stable & adequate Hydration State: stable & adequate Anesthetic Complications: no major complications apparent
[2018-09-17] MEDS ORDERED: IOVERSOL 100ml IV PRN (13:52)
--- NOTE | 2018-09-17 14:06 | CT Scan Report ---
CT abd pelvis IV con only CLINICAL HISTORY: 78 years-old Female presenting with anemia,ascites,EGDneg, abdominal distention and generalized abdominal pain. TECHNIQUE: Multidetector CT of the abdomen and pelvis was performed after the administration of intra venous contrast. IV contrast: 94 mL of Optiray 320. One or more dose lowering techniques were used co nsistent with the principles of ALARA (as low as reasonably achievable), including automatic exposure control, mA or kV adjustment to individual patient size, and/or use of iterative reconstruction. COMPARISON: PET/CT from 07/29/2015. CT DOSE (mGy.cm): The estimated cumulative dose is 1076.77 mGycm. FINDINGS: 3Rd Pressman topogram: Orthopedic hardware. Lung bases: Top normal heart size. Coronary artery, aortic valve, and mitral annular calcification. N o pericardial or pleural effusion. Interlobular septal thickening. Few bandlike opacities at the lung bases likely atelectasis. Liver: Nodular contour of the liver with relative hypertrophy of the left hepatic lobe compatible wit h cirrhosis. Mild capsular retraction in multifocal regions of the right hepatic lobe possibly underl jocelin focal fibrosis. The single phase of contrast significantly limits evaluation for underlying hepa tic lesion. Allowing for this, no gross lesion is apparent. Biliary: Mild central intrahepatic and marked extrahepatic biliary ductal prominence likely a reservo ir effect in the post cholecystectomy state. Gallbladder surgically absent. Pancreas: Moderate parenchymal atrophy. Spleen: Normal. Adrenal glands: Normal. Kidneys and ureters: Normal. No hydronephrosis. Bladder: Decompressed with a Angel catheter. Pelvic organs: Uterus surgically absent. Bowel: Limited diverticulosis of the proximal to mid sigmoid colon and distal descending colon. No wa ll thickening or pericolonic inflammatory change. The appendix is normal. The bowel obstruction. Peritoneal cavity: Large volume simple appearing ascites. No free intraperitoneal gas. Lymph nodes: No enlarged lymph nodes in the abdomen or pelvis. Vasculature: Atherosclerosis of the normal caliber abdominal aorta. IVC patent. Extensive atheroscler osis along the course of the superior mesenteric artery. Limited if any varices are present. Abdominal wall: Minimal infiltration of the abdominal wall diffusely suggesting body wall edema. Musculoskeletal: Internal fixation hardware of the left femur. Degenerative changes of the spine. Ost eopenia. Moderate compression deformity of L1, which is chronic. Minimal compression deformity of L5. These were present on prior PET/CT. IMPRESSION: 1. Large volume ascites in the setting of cirrhosis. 2. No convincing evidence of hemorrhage within the abdomen or pelvis. 3. Diverticulosis coli without evidence of diverticulitis. 4. Congestive changes in the lung bases evidenced by interlobular septal thickening. Electronically signed by: Todd Kraft M.D. 09/17/2018 2:05 PM
[2018-09-17] MEDS ORDERED: LAVAGE SOLUTION 4000ML PO SCH (15:30)
[2018-09-17] MEDS ORDERED: PIPERACILL/TAZOBAC CONSULT ACTIVE PRN (15:54)
--- NOTE | 2018-09-17 16:09 | Critical Care Consultation ---
Date of Consultation September 17, 2018 Assessment & Plan (1) GI bleed: EGD normal, awaiting colonoscopy in a.m. Continue Protonix and octreotide per GI (2) Anemia: Maintain hemoglobin greater than or equal to 8 given ongoing bleeding (3) Cirrhosis: Secondary to Jones, not acutely decompensated History of Present Illness Reason for Consultation: Critical care evaluation and management Requesting Physician: Dr. Teixeira Attending Physician: Chava Santiago MD History of Present Illness Patient is a 78-year-old woman with a history of Jones and cirrhosis and portal hypertension who had melena the past 24 hours and presented to the emergency room with a hemoglobin of 6.4 and systolic blood pressure in the 90s. She was admitted to ICU started on octreotide and Protonix. She was transfused 2 units of packed red blood cells. She was seen by GI and EGD was performed and showed no pathology. Colonoscopy is planned for tomorrow. Patient is currently awake and alert she does have some mild abdominal pain but no other complaints Allergies Allergy/AdvReac Type Severity Reaction Status Date / Time cortisone AdvReac Intermediate "WEIRD Verified 09/17/18 05:59 FEELING Home Medications Home Medications Medication Instructions Recorded Confirmed Type cholecalciferol (vitamin D3) 5,000 5,000 unit PO DAILY #30 tab 08/17/18 09/17/18 History unit tablet ferrous sulfate 325 mg (65 mg 325 mg PO TID tab 08/17/18 09/17/18 History iron) tablet amlodipine 5 mg tablet 5 mg PO DAILY #90 tab 09/07/18 09/17/18 Rx blood sugar diagnostic strips #50 ea 09/07/18 09/17/18 Rx carvedilol 25 mg tablet 25 mg PO BID #180 tab 09/07/18 09/17/18 Rx levothyroxine 125 mcg tablet 125 mcg PO QAM #90 tab 09/07/18 09/17/18 Rx ondansetron 4 mg disintegrating 4 mg PO .DISSOLVE 1 TO 2 TABL #90 09/07/18 09/17/18 Rx tablet tab pantoprazole 40 mg tablet,delayed 40 mg PO QAM #90 tab 09/07/18 09/17/18 Rx release polyethylene glycol 3350 17 17 g PO DAILY PRN gm 09/07/18 09/17/18 History gram/dose oral powder pramipexole 0.25 mg tablet 0.25 mg PO QPM PRN #90 tab 09/07/18 09/17/18 Rx sertraline 50 mg tablet 50 mg PO DAILY #90 tab 09/07/18 09/17/18 Rx hydromorphone 2 mg tablet 2 mg PO Q8H PRN #90 tab 09/10/18 09/17/18 Rx cannabidiol (CBD) 100 mg/mL oral See Rx Instructions .ROUTE 09/14/18 09/17/18 Rx solution .COMPLEX #100 ml aspirin 325 mg PO DAILY 09/17/18 09/17/18 History cyanocobalamin (vitamin B-12) 1,000 mcg PO DAILY 09/17/18 09/17/18 History [Vitamin B-12] ranitidine HCl 300 mg PO HS 09/17/18 09/17/18 History Patient History Medical History Asthma RARELY USES PRN INH Hypertension Hypothyroidism GERD (gastroesophageal reflux disease) Osteoarthritis Diabetes mellitus, type 2 DIET CONTROLLED Esophageal varices Depression with anxiety COPD (chronic obstructive pulmonary disease) Esophageal varices in cirrhosis Vitamin D deficiency Solitary pulmonary nodule Restless legs syndrome Portal hypertension Osteoporosis Irritable bowel syndrome Dyslipidemia Chronic reflux esophagitis Nausea & vomiting (02/03/13) Abnormal finding on lung imaging PT REPORTS "SPOTS ON LUNGS" - UPCOMING APPT WITH DR. THORNE TO EVALUATE. 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 Beliefs That Will Affect Care: None marital status: Current Living Situation: Spouse current occupational status: retired Other Information That Helps Us Care for You: No Feels Safe at Home: Yes Safety Concerns: Feels Safe At This Time Smoking Status: Current every day smoker Tobacco Type: cigarettes Cigarettes Per Day: 20 Do You Dip or Chew Tobacco: No Second Hand Exposure: No Tobacco Cessation Education Requested by Patient: No Hx Alcohol Use: No Hx Substance Use: No caffeine: Yes Review of Systems Review of Systems: All systems reviewed & are unremarkable except as noted in HPI & below Physical Exam Physical Exam: General: Awake alert no acute distress Head normocephalic atraumatic Matthias EOMI sclera anicteric Neck supple no JVD adenopathy or bruits Chest clear bilaterally no wheezing rales Cardiac regular rhythm no murmurs rubs or gallops Abdomen obese soft mild diffuse tenderness, no peritoneal signs Extremities warm well perfused no cyanosis clubbing or edema Neuro nonfocal Skin no rash petechia or purpura Results & Data Vital Signs (Past 12 Hours) Vital Signs Temp Pulse Pulse Resp BP BP Pulse Ox 09/17/18 13:31 37.5 C 81 20 129/48 L 97 09/17/18 13:30 81 97 09/17/18 13:20 80 97 09/17/18 13:16 37.4 C 79 18 133/68 98 09/17/18 13:10 80 97 09/17/18 13:00 37.7 C H 82 15 133/61 97 09/17/18 12:50 83 95 09/17/18 12:45 37.7 C H 83 16 126/59 L 95 09/17/18 12:40 86 91 09/17/18 12:35 37.8 C H 89 17 128/56 L 93 09/17/18 12:31 37.8 C H 93 H 18 128/56 L 93 09/17/18 12:30 88 93 09/17/18 12:29 37.8 C H 88 16 140/57 L 94 09/17/18 12:28 99 09/17/18 11:53 37.8 C H 92 H 18 130/58 L 97 09/17/18 11:50 94 H 94 09/17/18 11:46 93 H 135/75 96 09/17/18 11:40 93 H 95 09/17/18 11:31 91 H 131/47 L 97 09/17/18 11:30 92 H 96 09/17/18 11:22 37 C 91 H 20 130/58 L 96 09/17/18 11:20 94 H 96 09/17/18 11:16 95 H 130/58 L 98 09/17/18 11:12 37.3 C 94 H 21 128/60 97 09/17/18 11:10 94 H 96 09/17/18 11:00 95 H 128/60 97 09/17/18 10:54 96 H 126/51 L 97 09/17/18 10:52 37.3 C 97 H 23 126/51 L 99 09/17/18 10:50 96 H 98 09/17/18 10:46 96 H 130/60 97 09/17/18 10:41 96 H 120/61 98 09/17/18 10:40 96 H 97 09/17/18 10:37 37.4 C 96 H 20 120/61 96 09/17/18 10:34 37.5 C 97 H 16 102/69 98 09/17/18 10:31 97 H 102/69 97 09/17/18 10:30 97 H 97 09/17/18 10:21 37.4 C 98 H 20 128/61 97 09/17/18 10:20 98 H 128/61 96 09/17/18 10:13 37.4 C 101 H 21 116/63 97 09/17/18 10:10 99 H 98 09/17/18 10:02 98 H 97 09/17/18 10:01 98 H 116/63 98 09/17/18 10:00 37.4 C 98 H 18 116/63 98 09/17/18 09:50 98 H 98 09/17/18 09:40 98 H 98 09/17/18 09:30 95 H 98 09/17/18 09:20 98 H 93 09/17/18 09:17 100 H 09/17/18 09:10 98 H 96 09/17/18 09:02 102 H 113/62 98 09/17/18 09:00 105 H 95 09/17/18 08:51 99 H 99 09/17/18 08:50 104 H 142/87 H 97 09/17/18 08:40 100 H 97 09/17/18 08:32 37.5 C 100 H 20 134/83 99 09/17/18 08:30 100 H 95 09/17/18 08:27 37.2 C 100 H 22 134/83 99 09/17/18 08:20 97 09/17/18 08:17 93 09/17/18 08:01 115 H 20 115/65 98 09/17/18 08:00 100 H 20 115/65 97 09/17/18 07:50 98 09/17/18 07:48 102/63 100 09/17/18 07:45 37.2 C 97 H 24 102/63 99 09/17/18 07:40 98 09/17/18 07:31 106 H 131/86 90 09/17/18 07:30 101 H 93 09/17/18 07:29 37.4 C 100 H 14 111/57 L 93 09/17/18 07:20 104 H 94 09/17/18 07:10 102 H 100 09/17/18 07:05 110 H 20 111/57 L 93 09/17/18 07:01 95 H 111/57 L 94 09/17/18 07:00 98 H 98 09/17/18 06:52 100 H 109/66 100 09/17/18 06:50 95 H 97 09/17/18 06:49 98 H 22 133/67 99 09/17/18 06:40 103 H 100 09/17/18 06:31 95 H 133/67 96 09/17/18 06:30 97 H 96 09/17/18 06:21 102 H 100 09/17/18 06:20 102 H 24 109/74 100 09/17/18 06:19 105 H 109/74 100 09/17/18 06:18 105 H 87 L 09/17/18 06:10 96 H 100 09/17/18 06:07 98 H 22 90/59 L 100 09/17/18 06:01 97 H 90/59 L 98 09/17/18 06:00 99 H 99 09/17/18 05:50 105 H 100 09/17/18 05:40 95 H 96 09/17/18 05:35 96 H 22 119/66 97 09/17/18 05:31 100 H 119/66 100 09/17/18 05:30 103 H 79 L 09/17/18 05:26 100 H 97/64 L 94 09/17/18 05:21 99 H 92 09/17/18 05:18 36.7 C 99 H 24 120/76 96 09/17/18 05:17 100 H 120/76 91 Laboratory Results 09/17/18 09/17/18 09/17/18 Range/Units 13:15 11:30 08:42 WBC (4.8-10.8) K/uL RBC (4.2-5.4) M/uL Hgb 8.0 L (12.0-16.0) g/dL Hct (37-47) % MCV (80-100) fL MCH (25-34) pg MCHC (32-36) g/dL RDW Std Deviation (36.4-46.3) fL RDW Coeff of Mile (11.5-14.5) % Plt Count (130-400) K/uL MPV (7.4-10.4) fL Immature Gran % (Auto) % Neut % (Auto) % Lymph % (Auto) % [place] % (Auto) % Eos % (Auto) % Baso % (Auto) % Immature Gran # (Auto) (0.00-0.02) K/uL Neut # (Auto) (1.4-6.5) K/uL Lymph # (Auto) (1.2-3.4) K/uL [place] # (Auto) (0.11-0.59) K/uL Eos # (Auto) (0-0.5) K/uL Baso # (Auto) (0-0.2) K/uL Hypersegmented Neuts Polychromasia Hypochromasia PT (9.0-12.0) Seconds INR (0.9-1.1) Sodium (136-145) mmol/L Potassium (3.5-5.1) mmol/L Chloride (98-107) mmol/L Carbon Dioxide (21-32) mmol/L Anion Gap (3-11) BUN (7-18) mg/dl Creatinine (0.6-1.2) mg/dl Est Cr Clr Drug Dosing ml/min Est GFR ( Amer) Est GFR (Non-Af Amer) BUN/Creatinine Ratio (10-20) Glucose (70-99) mg/dl POC Glucose 152 H (70-99) Calcium (8.5-10.1) mg/dl Magnesium (1.8-2.4) mg/dl Total Bilirubin (0.2-1) mg/dl AST (15-37) U/L ALT (12-78) U/L Alkaline Phosphatase (45-117) U/L Troponin I (0-0.045) ng/ml NT-Pro-B Natriuret Pep (0-1800) pg/ml Total Protein (6.4-8.2) gm/dl Albumin (3.4-5.0) gm/dl Globulin (2.5-4.0) gm/dl Albumin/Globulin Ratio (0.9-2) Lipase (73-393) U/L Nasal Screen MRSA (PCR) Negative (Negative) Blood Type Antibody Screen Crossmatch 09/17/18 09/17/18 09/17/18 Range/Units 05:22 05:22 05:22 WBC 15.85 H (4.8-10.8) K/uL RBC 2.61 L (4.2-5.4) M/uL Hgb 6.6 L* (12.0-16.0) g/dL Hct 22.8 L (37-47) % MCV 87.4 (80-100) fL MCH 25.3 (25-34) pg MCHC 28.9 L (32-36) g/dL RDW Std Deviation 56.2 H (36.4-46.3) fL RDW Coeff of Mile 17.6 H (11.5-14.5) % Plt Count 404 H (130-400) K/uL MPV 10.0 (7.4-10.4) fL Immature Gran % (Auto) 0.3 % Neut % (Auto) 82.0 % Lymph % (Auto) 12.1 % [place] % (Auto) 5.5 % Eos % (Auto) 0.0 % Baso % (Auto) 0.1 % Immature Gran # (Auto) 0.04 H (0.00-0.02) K/uL Neut # (Auto) 13.01 H (1.4-6.5) K/uL Lymph # (Auto) 1.92 (1.2-3.4) K/uL [place] # (Auto) 0.87 H (0.11-0.59) K/uL Eos # (Auto) 0.00 (0-0.5) K/uL Baso # (Auto) 0.01 (0-0.2) K/uL Hypersegmented Neuts 1+ Polychromasia 1+ Hypochromasia Present PT 13.5 H (9.0-12.0) Seconds INR 1.3 H (0.9-1.1) Sodium 140 (136-145) mmol/L Potassium 4.7 (3.5-5.1) mmol/L Chloride 104 (98-107) mmol/L Carbon Dioxide 29 (21-32) mmol/L Anion Gap 7.0 (3-11) BUN 44 H (7-18) mg/dl Creatinine 0.88 (0.6-1.2) mg/dl Est Cr Clr Drug Dosing 61.9 ml/min Est GFR ( Amer) 74.0 Est GFR (Non-Af Amer) 63.8 BUN/Creatinine Ratio 50.0 H (10-20) Glucose 134 H (70-99) mg/dl POC Glucose (70-99) Calcium 8.9 (8.5-10.1) mg/dl Magnesium 1.9 (1.8-2.4) mg/dl Total Bilirubin 0.6 (0.2-1) mg/dl AST 36 (15-37) U/L ALT 22 (12-78) U/L Alkaline Phosphatase 68 (45-117) U/L Troponin I 0.030 (0-0.045) ng/ml NT-Pro-B Natriuret Pep 245 (0-1800) pg/ml Total Protein 6.9 (6.4-8.2) gm/dl Albumin 2.7 L (3.4-5.0) gm/dl Globulin 4.2 H (2.5-4.0) gm/dl Albumin/Globulin Ratio 0.6 L (0.9-2) Lipase 62 L (73-393) U/L Nasal Screen MRSA (PCR) (Negative) Blood Type Antibody Screen Crossmatch 09/17/18 Range/Units 05:22 WBC (4.8-10.8) K/uL RBC (4.2-5.4) M/uL Hgb (12.0-16.0) g/dL Hct (37-47) % MCV (80-100) fL MCH (25-34) pg MCHC (32-36) g/dL RDW Std Deviation (36.4-46.3) fL RDW Coeff of Mile (11.5-14.5) % Plt Count (130-400) K/uL MPV (7.4-10.4) fL Immature Gran % (Auto) % Neut % (Auto) % Lymph % (Auto) % [place] % (Auto) % Eos % (Auto) % Baso % (Auto) % Immature Gran # (Auto) (0.00-0.02) K/uL Neut # (Auto) (1.4-6.5) K/uL Lymph # (Auto) (1.2-3.4) K/uL [place] # (Auto) (0.11-0.59) K/uL Eos # (Auto) (0-0.5) K/uL Baso # (Auto) (0-0.2) K/uL Hypersegmented Neuts Polychromasia Hypochromasia PT (9.0-12.0) Seconds INR (0.9-1.1) Sodium (136-145) mmol/L Potassium (3.5-5.1) mmol/L Chloride (98-107) mmol/L Carbon Dioxide (21-32) mmol/L Anion Gap (3-11) BUN (7-18) mg/dl Creatinine (0.6-1.2) mg/dl Est Cr Clr Drug Dosing ml/min Est GFR ( Amer) Est GFR (Non-Af Amer) BUN/Creatinine Ratio (10-20) Glucose (70-99) mg/dl POC Glucose (70-99) Calcium (8.5-10.1) mg/dl Magnesium (1.8-2.4) mg/dl Total Bilirubin (0.2-1) mg/dl AST (15-37) U/L ALT (12-78) U/L Alkaline Phosphatase (45-117) U/L Troponin I (0-0.045) ng/ml NT-Pro-B Natriuret Pep (0-1800) pg/ml Total Protein (6.4-8.2) gm/dl Albumin (3.4-5.0) gm/dl Globulin (2.5-4.0) gm/dl Albumin/Globulin Ratio (0.9-2) Lipase (73-393) U/L Nasal Screen MRSA (PCR) (Negative) Blood Type A Positive Antibody Screen NEGATIVE Crossmatch See Detail Medications Administered Home Medications Medication Instructions Recorded Confirmed Last Taken cholecalciferol (vitamin D3) 5,000 5,000 unit PO DAILY #30 tab 08/17/18 09/17/18 09/16/18 unit tablet ferrous sulfate 325 mg (65 mg 325 mg PO TID tab 08/17/18 09/17/18 09/16/18 iron) tablet amlodipine 5 mg tablet 5 mg PO DAILY #90 tab 09/07/18 09/17/18 09/16/18 blood sugar diagnostic strips #50 ea 09/07/18 09/17/18 Unknown carvedilol 25 mg tablet 25 mg PO BID #180 tab 09/07/18 09/17/18 09/16/18 levothyroxine 125 mcg tablet 125 mcg PO QAM #90 tab 09/07/18 09/17/18 09/16/18 ondansetron 4 mg disintegrating 4 mg PO .DISSOLVE 1 TO 2 TABL #90 09/07/18 09/17/18 Unknown tablet tab pantoprazole 40 mg tablet,delayed 40 mg PO QAM #90 tab 09/07/18 09/17/18 09/16/18 release polyethylene glycol 3350 17 17 g PO DAILY PRN gm 09/07/18 09/17/18 Unknown gram/dose oral powder pramipexole 0.25 mg tablet 0.25 mg PO QPM PRN #90 tab 09/07/18 09/17/18 Unknown sertraline 50 mg tablet 50 mg PO DAILY #90 tab 09/07/18 09/17/18 09/16/18 hydromorphone 2 mg tablet 2 mg PO Q8H PRN #90 tab 09/10/18 09/17/18 Unknown cannabidiol (CBD) 100 mg/mL oral See Rx Instructions .ROUTE 09/14/18 09/17/18 Unknown solution .COMPLEX #100 ml aspirin 325 mg PO DAILY 09/17/18 09/17/18 09/14/18 cyanocobalamin (vitamin B-12) 1,000 mcg PO DAILY 09/17/18 09/17/18 09/16/18 [Vitamin B-12] ranitidine HCl 300 mg PO HS 09/17/18 09/17/18 09/16/18 Active Medications Generic Name Dose Route Start Last Admin Trade Name Freq PRN Reason Stop Dose Admin Pantoprazole Sodium 40 mg/ 100 mls @ 20 mls/hr 09/17/18 05:45 09/17/18 15:48 Dextrose IV 09/19/18 10:44 20 mls/hr Q5H MONIQUE Administration Octreotide Acetate 500 mcg/ 105 mls @ 10.5 mls/hr 09/17/18 06:45 09/17/18 06:58 Sodium Chloride IV 09/19/18 06:44 50 mcg/hr .Q10H MONIQUE 10.5 mls/hr Administration 50 MCG/HR Parenteral Electrolytes 1,000 mls @ 125 mls/hr 09/17/18 08:38 09/17/18 12:30 Normosol-R IV 10/17/18 08:37 125 mls/hr .Q8H MONIQUE Administration Levothyroxine Sodium 75 mcg/ 3.75 mls @ 2 mls/min 09/17/18 09:00 09/17/18 09:41 Syringe IV 10/17/18 08:59 2 mls/min DAILY@0900 MONIQUE Administration Ioversol 94 ml 09/17/18 13:52 09/17/18 13:53 Optiray 320 100ml IV 09/21/18 13:51 94 ml ONCE PRN Administration Interaction Checking Miscellaneous 1 ea 09/17/18 09:00 09/17/18 10:04 Icu Electrolyte Replacement Protocol N/A 09/24/18 08:59 Not Given QAM MONIQUE Morphine Sulfate 2 mg 09/17/18 08:44 09/17/18 08:57 Morphine Sulfate IV 10/01/18 08:43 2 mg Q4 PRN Administration Pain Morphine Sulfate 4 mg 09/17/18 08:44 09/17/18 09:35 Morphine Sulfate IV 10/01/18 08:43 2 mg Q4 PRN Administration Pain Polyethylene Glycol/Electrolytes 16 dose 09/17/18 15:30 09/17/18 15:49 Golytely PO 09/17/18 23:59 16 dose TODAY@1530 MONIQUE Administration (1) GI bleed GI bleed type/associated pathology: unspecified gastrointestinal hemorrhage type Qualified Code(s): K92.2 - Gastrointestinal hemorrhage, unspecified (2) Anemia Anemia type: unspecified type Qualified Code(s): D64.9 - Anemia, unspecified (3) Cirrhosis Ascites presence: with ascites Hepatic cirrhosis type: unspecified hepatic cirrhosis Qualified Code(s): K74.60 - Unspecified cirrhosis of liver; R18.8 - Other ascites
[2018-09-17] MEDS ORDERED: PIPERACILLIN/TAZOBACTAM 4.5 GM in DEXTROSE 5% 100 ML IV ONE (16:15)
[2018-09-17] MEDS: HYDROmorphone INJ 1 MG/ML SYRINGE IV PRN ×2 (16:52→21:41)
[2018-09-17] MEDS: PIPERACILLIN/TAZOBACTAM 4.5 GM in DEXTROSE 5% 100 ML IV SCH (22:12)
[2018-09-17] MEDS: ONDANSETRON INJ 2 MG/ML 2 ML VIAL IV PRN (23:29)
[2018-09-18] MEDS: OCTREOTIDE ACETATE 500 MCG in 0.9 % SODIUM CHLORIDE 100 ML IV SCH ×2 (02:07→11:53)
[2018-09-18] MEDS: HYDROmorphone INJ 1 MG/ML SYRINGE IV PRN ×5 (02:18→20:48)
[2018-09-18] MEDS: PANTOprazole 40 MG in DEXTROSE 5% 100 ML IV SCH ×3 (02:19→11:53)
[2018-09-18 05:06] LABS: INR 1.4 (0.9-1.1)
[2018-09-18 05:17] LABS: Hemoglobin 6.7 g/dL (12.0-16.0); Mean Corpuscular Hgb Conc 30.5 g/dL (32-36); Mean Corpuscular Volume 86.6 fL (80-100); Mean Platelet Volume 9.5 fL (7.4-10.4); Platelet Count 225 K/uL (130-400); RDW Coefficient of Variation 17.3 % (11.5-14.5); RDW Standard Deviation 53.9 fL (36.4-46.3); Red Blood Count 2.54 M/uL (4.2-5.4); White Blood Count 9.79 K/uL (4.8-10.8)
[2018-09-18 05:20] LABS: Basophils # (auto) 0.02 K/uL (0-0.2); Basophils % (auto) 0.2 %; Eosinophils # (auto) 0.03 K/uL (0-0.5); Eosinophils % (auto) 0.3 %; Hypochromasia Present; Immature Granulocytes # (auto) 0.03 K/uL (0.00-0.02); Immature Granulocytes % (auto) 0.3 %; Lymphocytes # (auto) 1.91 K/uL (1.2-3.4); Lymphocytes % (auto) 19.5 %; Monocytes # (auto) 1.14 K/uL (0.11-0.59); Monocytes % (auto) 11.6 %; Neutrophils # (auto) 6.66 K/uL (1.4-6.5); Neutrophils % (auto) 68.1 %
[2018-09-18] MEDS ORDERED: SODIUM CHLORIDE 0.9% 250 ML IV PRN (05:23)
[2018-09-18] MEDS: NORMOSOL-R 1,000 ML IV SCH ×3 (05:38→15:40)
[2018-09-18] MEDS: PIPERACILLIN/TAZOBACTAM 4.5 GM in DEXTROSE 5% 100 ML IV SCH ×3 (05:38→22:58)
[2018-09-18 05:47] LABS: BUN Creatinine Ratio 39.5 (10-20); Calcium 7.9 mg/dl (8.5-10.1); Creatinine Clr Calc Pharmacy 74.6 ml/min; Est GFR (African American) 92.7; Phosphorus 2.5 mg/dl (2.5-4.9); Potassium 3.7 mmol/L (3.5-5.1)
[2018-09-18] MEDS: ONDANSETRON INJ 2 MG/ML 2 ML VIAL IV PRN (07:26)
--- NOTE | 2018-09-18 07:53 | Hospitalist Progress Note ---
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 Patient is kept n.p.o. a GI consult recommends continue octreotide and Protonix She was transfused 2 units packed red blood cells but hgb is still low scheduled for additional 2 units concern for ascites and elevation of wbc did start zosyn and consider a therapeutic paracentesis once acute blood loss anemia is stabilized (2) Hypertension: Patient typically takes carvedilol 25mg twice daily this continues to be held she also takes amlodipine which be held and aspirin for coronary disease which is also being held (3) Hypothyroidism: To be on Synthroid 125 is converted to IV at 75 (4) Diabetes mellitus, type 2: Diabetes is listed on her problem list her blood glucose is 131 presentation at the current time I do not see any significant medications to help with this subsequently we believe this might be diet controlled, if needed ssi will be started (5) Depression with anxiety: Typical on Zoloft therapy is been worse of late as her recently is been diagnosed with metastatic cancer, will have with small sip of water (6) Solitary pulmonary nodule: This is been noted in her history however intake chest x-ray is concerned for changes in this nodule we will enroll her in the lung nodule clinic (7) DVT prophylaxis: SCDs Subjective Patient has no complaints or problems she still is markedly anemic she is scheduled for colonoscopy today. CT scan performed yesterday only shows ascites with no concerns for sources of blood loss internally blood pressures been stable Review of Systems Review of Systems: ROS: She appears pale weak and fatigued No double vision blurry vision No problems with speech or swallowing No palpitations, chest pain or pressure No Wheezing or breathing issues Minor diffuse abdominal but no pain nausea vomiting or diarrhea No burning urine urine frequency or changes in color No focal joint pain or muscle pain No skin rashes or oral lesions No unusual bruising or bleeding No focused back pain or numbness or loss of strength No changes in memory or confusion Physical Exam Physical Exam: The patient appeared pale and weak Vital signs as documented. Head exam is unremarkable. normocephalic, atraumatic Neck is without jugular venous distension, thyromegaly, or lymphademopathy Lungs are clear to auscultation and percussion. Cardiac exam reveals Rhythm is regular. First and second heart sounds normal. Abdominal exam reveals tube in abdomen with no fluid wave, normal bowel sounds, no rebound or guarding but mild tenderness to palpation Extremities are nonedematous and both pedal pulses are present Neurologic exam is A&Ox3, no focal deficits, strength is equal bilateral Psychologically seems neither anxious or depressed Skin is warm Dry
--- NOTE | 2018-09-18 08:17 | Gastroenterology Progress Note ---
Date of Service September 18, 2018 Assessment & Plan (1) GI bleed: 78 year old female wit history of NAFLD cirrhosis, grade 2 esophageal varices & portal HTN gastropathy on carvedilol and new ascites undergoing planned outpatient paracentesis this week who presets in the ED w/ report of dark, tarry stools and symtpomatic anemia since Monday evening. Denies any coffee ground emesis, hematemesis or BRBPR. She is awake, alert and oriented w/ systlic BP 110's in the ER, undergoing transfer to the ICU. 1 unit RBC running, on IV ABX, octreotide, protonix. Received a dose of IV reglan. S/P EGD/CT which were negative. Remains on IV octreotide planned for cscopy today. NPO Continue IV ABX Colonoscopy today Trend H&H Transfuse PRN Monitor and document all GI output Pending result of colonoscopy consider diagnostic and therapeutic paracentesis today Once clinically stable, hepatic duplex Thank you for allowing us to participate in the care of this patient. Please call with any acute changes, questions or concerns. Please see addendum below with additional recommendation from my supervising physician. Attg add: I interviewed exam, reviewed chart and labs. Pt with drop in hgb but fall in BUN and stable BP, without gross bleeding. On exam, stool is black green and abd distended and dull. Plan csocpy tomorrow Transfuse for goal hgb 8. Small volume tap today. Can d/c PPI gtt as ordered yesterday, d/c octreotide drip. Would consider bleeding scan if develops gross bleeding overnight. (2) Esophageal varices: (3) Cirrhosis: (4) Ascites: Subjective Pt was seen and evaluated, chart reviewed. EGD/CT without acute findings. Prepp ing for a colonoscopy. Tolerated nearly 3/4 of colon prep. Stool has been green/brown w/ prep. No BRBPR. Stool is liquid, not clear. She notes some abd pain. No nausea, vomiting. No fever, chills, CP, SOB. Feels less weak. Wants to go home as soon as able. Review of Systems Constitutional: + fatigue and + weakness; no fever and no body aches Respiratory: no cough, no dyspnea and no wheezing Cardiovascular: no chest pain, no radiating jaw, neck or arm pain and no palpitations Gastrointestinal: + nausea; no abdominal pain, no belching, no early satiety, no heartburn, no vomiting, no coffee ground emesis, no hematemesis, no blood in stools and no melena Physical Exam Constitutional: + ill appearing (chronic) and + obese Neck: trachea midline Respiratory: normal respiratory effort, lungs clear to auscultation Cardiovascular: Rate/Rhythm: regular rate and regular rhythm Heart Sounds: no click, no gallop and no cardiac rub Gastrointestinal (Abdomen): Inspection/Auscultation: + abdomen distended and normal bowel sounds Percussion/Palpation: abdomen soft and + ascites; abdomen nontender, no guarding, abdomen not rigid and no abdominal mass Skin: no rashes, warm and dry Results & Data Vital Signs (Past 12 Hours) Vital Signs Temp Pulse Resp BP Pulse Ox 09/18/18 08:06 37.3 C 70 20 129/59 L 96 09/18/18 07:50 37.0 C 87 20 109/64 96 Laboratory Results 09/18/18 09/18/18 09/18/18 Range/Units 04:18 04:18 04:18 WBC 9.79 (4.8-10.8) K/uL RBC 2.54 L (4.2-5.4) M/uL Hgb 6.7 L* (12.0-16.0) g/dL Hct 22.0 L (37-47) % MCV 86.6 (80-100) fL MCH 26.4 (25-34) pg MCHC 30.5 L (32-36) g/dL RDW Std Deviation 53.9 H (36.4-46.3) fL RDW Coeff of Mile 17.3 H (11.5-14.5) % Plt Count 225 (130-400) K/uL MPV 9.5 (7.4-10.4) fL Immature Gran % (Auto) 0.3 % Neut % (Auto) 68.1 % Lymph % (Auto) 19.5 % [place] % (Auto) 11.6 % Eos % (Auto) 0.3 % Baso % (Auto) 0.2 % Immature Gran # (Auto) 0.03 H (0.00-0.02) K/uL Neut # (Auto) 6.66 H (1.4-6.5) K/uL Lymph # (Auto) 1.91 (1.2-3.4) K/uL [place] # (Auto) 1.14 H (0.11-0.59) K/uL Eos # (Auto) 0.03 (0-0.5) K/uL Baso # (Auto) 0.02 (0-0.2) K/uL Hypochromasia Present PT 14.0 H (9.0-12.0) Seconds INR 1.4 H (0.9-1.1) Sodium 142 (136-145) mmol/L Potassium 3.7 D (3.5-5.1) mmol/L Chloride 108 H (98-107) mmol/L Carbon Dioxide 30 (21-32) mmol/L Anion Gap 4.0 (3-11) BUN 29 H (7-18) mg/dl Creatinine 0.73 (0.6-1.2) mg/dl Est Cr Clr Drug Dosing 74.6 ml/min Est GFR ( Amer) 92.7 Est GFR (Non-Af Amer) 80.0 BUN/Creatinine Ratio 39.5 H (10-20) Glucose 106 H (70-99) mg/dl POC Glucose (70-99) Calcium 7.9 L (8.5-10.1) mg/dl Phosphorus 2.5 (2.5-4.9) mg/dl Magnesium 2.0 (1.8-2.4) mg/dl Nasal Screen MRSA (PCR) (Negative) Blood Type Antibody Screen Crossmatch 09/17/18 09/17/18 09/17/18 Range/Units 18:59 13:15 11:30 WBC (4.8-10.8) K/uL RBC (4.2-5.4) M/uL Hgb 8.0 L (12.0-16.0) g/dL Hct (37-47) % MCV (80-100) fL MCH (25-34) pg MCHC (32-36) g/dL RDW Std Deviation (36.4-46.3) fL RDW Coeff of Mile (11.5-14.5) % Plt Count (130-400) K/uL MPV (7.4-10.4) fL Immature Gran % (Auto) % Neut % (Auto) % Lymph % (Auto) % [place] % (Auto) % Eos % (Auto) % Baso % (Auto) % Immature Gran # (Auto) (0.00-0.02) K/uL Neut # (Auto) (1.4-6.5) K/uL Lymph # (Auto) (1.2-3.4) K/uL [place] # (Auto) (0.11-0.59) K/uL Eos # (Auto) (0-0.5) K/uL Baso # (Auto) (0-0.2) K/uL Hypochromasia PT (9.0-12.0) Seconds INR (0.9-1.1) Sodium (136-145) mmol/L Potassium (3.5-5.1) mmol/L Chloride (98-107) mmol/L Carbon Dioxide (21-32) mmol/L Anion Gap (3-11) BUN (7-18) mg/dl Creatinine (0.6-1.2) mg/dl Est Cr Clr Drug Dosing ml/min Est GFR ( Amer) Est GFR (Non-Af Amer) BUN/Creatinine Ratio (10-20) Glucose (70-99) mg/dl POC Glucose 135 H 152 H (70-99) Calcium (8.5-10.1) mg/dl Phosphorus (2.5-4.9) mg/dl Magnesium (1.8-2.4) mg/dl Nasal Screen MRSA (PCR) (Negative) Blood Type Antibody Screen Crossmatch 09/17/18 09/17/18 Range/Units 08:42 05:22 WBC (4.8-10.8) K/uL RBC (4.2-5.4) M/uL Hgb (12.0-16.0) g/dL Hct (37-47) % MCV (80-100) fL MCH (25-34) pg MCHC (32-36) g/dL RDW Std Deviation (36.4-46.3) fL RDW Coeff of Mile (11.5-14.5) % Plt Count (130-400) K/uL MPV (7.4-10.4) fL Immature Gran % (Auto) % Neut % (Auto) % Lymph % (Auto) % [place] % (Auto) % Eos % (Auto) % Baso % (Auto) % Immature Gran # (Auto) (0.00-0.02) K/uL Neut # (Auto) (1.4-6.5) K/uL Lymph # (Auto) (1.2-3.4) K/uL [place] # (Auto) (0.11-0.59) K/uL Eos # (Auto) (0-0.5) K/uL Baso # (Auto) (0-0.2) K/uL Hypochromasia PT (9.0-12.0) Seconds INR (0.9-1.1) Sodium (136-145) mmol/L Potassium (3.5-5.1) mmol/L Chloride (98-107) mmol/L Carbon Dioxide (21-32) mmol/L Anion Gap (3-11) BUN (7-18) mg/dl Creatinine (0.6-1.2) mg/dl Est Cr Clr Drug Dosing ml/min Est GFR ( Amer) Est GFR (Non-Af Amer) BUN/Creatinine Ratio (10-20) Glucose (70-99) mg/dl POC Glucose (70-99) Calcium (8.5-10.1) mg/dl Phosphorus (2.5-4.9) mg/dl Magnesium (1.8-2.4) mg/dl Nasal Screen MRSA (PCR) Negative (Negative) Blood Type A Positive Antibody Screen NEGATIVE Crossmatch See Detail (1) GI bleed GI bleed type/associated pathology: unspecified gastrointestinal hemorrhage type Qualified Code(s): K92.2 - Gastrointestinal hemorrhage, unspecified (2) Ascites Ascites type: other type Qualified Code(s): R18.8 - Other ascites (3) Esophageal varices Esophageal varices bleeding: with bleeding Esophageal varices type: unspecified type Qualified Code(s): I85.01 - Esophageal varices with bleeding (4) Cirrhosis Ascites presence: with ascites Hepatic cirrhosis type: unspecified hepatic cirrhosis Qualified Code(s): K74.60 - Unspecified cirrhosis of liver; R18.8 - Other ascites
[2018-09-18] MEDS: ICU ELECTROLYTE REPLACEMENT PROTOCOL SCH (09:19)
[2018-09-18] MEDS: SERTRALINE HCL 50 MG TABLET PO SCH (09:19)
[2018-09-18] MEDS: LEVOTHYROXINE SODIUM 75 MCG in SYRINGE 0 ML IV SCH (09:19)
[2018-09-18] MEDS ORDERED: ACETAMINOPHEN 1,000 MG/100 ML VIAL IV PRN (09:35)
--- NOTE | 2018-09-18 12:08 | Critical Care Progress Note ---
Date of Service September 18, 2018 Assessment & Plan (1) GI bleed: EGD normal, awaiting colonoscopy in a.m. Continue Protonix and octreotide per GI. Continue colon prep (2) Anemia: Maintain hemoglobin greater than or equal to 8 given ongoing bleeding (3) Cirrhosis: Secondary to Jones, not acutely decompensated Subjective Sleepy but easily arousable. This morning's colonoscopy postponed because of poor prep and colon prep continues. She is to receive additional 2 units packed red blood cells for a total of 4 units. She denies abdominal pain. Review of Systems Review of Systems: All systems reviewed & are unremarkable except as noted in HPI & below Physical Exam Physical Exam: Awake somewhat sleepy no acute distress Head normocephalic atraumatic Matthias EOMI Clear bruits Chest clear bilaterally Cardiac regular rhythm no murmurs rubs or gallops Abdomen obese soft nontender normoactive bowel sounds Extremities warm well perfused no cyanosis or clubbing Neuro nonfocal Results & Data Vital Signs (Past 12 Hours) Vital Signs Temp Pulse Resp BP Pulse Ox 09/18/18 11:30 37.2 C 64 21 109/47 L 96 09/18/18 11:15 37.3 C 65 16 123/47 L 96 09/18/18 10:57 37.1 C 64 18 120/49 L 98 09/18/18 10:46 37.0 C 65 14 120/49 L 98 09/18/18 09:45 36.9 C 67 11 L 135/64 97 09/18/18 08:50 37.3 C 73 21 133/66 96 09/18/18 08:06 37.3 C 70 20 129/59 L 96 09/18/18 08:00 70 09/18/18 07:50 37.0 C 87 20 109/64 96 Laboratory Results 09/18/18 09/18/18 09/18/18 Range/Units 04:18 04:18 04:18 WBC 9.79 (4.8-10.8) K/uL RBC 2.54 L (4.2-5.4) M/uL Hgb 6.7 L* (12.0-16.0) g/dL Hct 22.0 L (37-47) % MCV 86.6 (80-100) fL MCH 26.4 (25-34) pg MCHC 30.5 L (32-36) g/dL RDW Std Deviation 53.9 H (36.4-46.3) fL RDW Coeff of Mile 17.3 H (11.5-14.5) % Plt Count 225 (130-400) K/uL MPV 9.5 (7.4-10.4) fL Immature Gran % (Auto) 0.3 % Neut % (Auto) 68.1 % Lymph % (Auto) 19.5 % [place] % (Auto) 11.6 % Eos % (Auto) 0.3 % Baso % (Auto) 0.2 % Immature Gran # (Auto) 0.03 H (0.00-0.02) K/uL Neut # (Auto) 6.66 H (1.4-6.5) K/uL Lymph # (Auto) 1.91 (1.2-3.4) K/uL [place] # (Auto) 1.14 H (0.11-0.59) K/uL Eos # (Auto) 0.03 (0-0.5) K/uL Baso # (Auto) 0.02 (0-0.2) K/uL Hypochromasia Present PT 14.0 H (9.0-12.0) Seconds INR 1.4 H (0.9-1.1) Sodium 142 (136-145) mmol/L Potassium 3.7 D (3.5-5.1) mmol/L Chloride 108 H (98-107) mmol/L Carbon Dioxide 30 (21-32) mmol/L Anion Gap 4.0 (3-11) BUN 29 H (7-18) mg/dl Creatinine 0.73 (0.6-1.2) mg/dl Est Cr Clr Drug Dosing 74.6 ml/min Est GFR ( Amer) 92.7 Est GFR (Non-Af Amer) 80.0 BUN/Creatinine Ratio 39.5 H (10-20) Glucose 106 H (70-99) mg/dl POC Glucose (70-99) Calcium 7.9 L (8.5-10.1) mg/dl Phosphorus 2.5 (2.5-4.9) mg/dl Magnesium 2.0 (1.8-2.4) mg/dl Blood Type Antibody Screen Crossmatch 09/17/18 09/17/18 09/17/18 Range/Units 18:59 13:15 05:22 WBC (4.8-10.8) K/uL RBC (4.2-5.4) M/uL Hgb 8.0 L (12.0-16.0) g/dL Hct (37-47) % MCV (80-100) fL MCH (25-34) pg MCHC (32-36) g/dL RDW Std Deviation (36.4-46.3) fL RDW Coeff of Mile (11.5-14.5) % Plt Count (130-400) K/uL MPV (7.4-10.4) fL Immature Gran % (Auto) % Neut % (Auto) % Lymph % (Auto) % [place] % (Auto) % Eos % (Auto) % Baso % (Auto) % Immature Gran # (Auto) (0.00-0.02) K/uL Neut # (Auto) (1.4-6.5) K/uL Lymph # (Auto) (1.2-3.4) K/uL [place] # (Auto) (0.11-0.59) K/uL Eos # (Auto) (0-0.5) K/uL Baso # (Auto) (0-0.2) K/uL Hypochromasia PT (9.0-12.0) Seconds INR (0.9-1.1) Sodium (136-145) mmol/L Potassium (3.5-5.1) mmol/L Chloride (98-107) mmol/L Carbon Dioxide (21-32) mmol/L Anion Gap (3-11) BUN (7-18) mg/dl Creatinine (0.6-1.2) mg/dl Est Cr Clr Drug Dosing ml/min Est GFR ( Amer) Est GFR (Non-Af Amer) BUN/Creatinine Ratio (10-20) Glucose (70-99) mg/dl POC Glucose 135 H (70-99) Calcium (8.5-10.1) mg/dl Phosphorus (2.5-4.9) mg/dl Magnesium (1.8-2.4) mg/dl Blood Type A Positive Antibody Screen NEGATIVE Crossmatch See Detail Medications Administered Home Medications Medication Instructions Recorded Confirmed Last Taken cholecalciferol (vitamin D3) 5,000 5,000 unit PO DAILY #30 tab 08/17/18 09/17/18 09/16/18 unit tablet ferrous sulfate 325 mg (65 mg 325 mg PO TID tab 08/17/18 09/17/18 09/16/18 iron) tablet amlodipine 5 mg tablet 5 mg PO DAILY #90 tab 09/07/18 09/17/18 09/16/18 blood sugar diagnostic strips #50 ea 09/07/18 09/17/18 Unknown carvedilol 25 mg tablet 25 mg PO BID #180 tab 09/07/18 09/17/18 09/16/18 levothyroxine 125 mcg tablet 125 mcg PO QAM #90 tab 09/07/18 09/17/18 09/16/18 ondansetron 4 mg disintegrating 4 mg PO .DISSOLVE 1 TO 2 TABL #90 09/07/18 09/17/18 Unknown tablet tab pantoprazole 40 mg tablet,delayed 40 mg PO QAM #90 tab 09/07/18 09/17/18 09/16/18 release polyethylene glycol 3350 17 17 g PO DAILY PRN gm 09/07/18 09/17/18 Unknown gram/dose oral powder pramipexole 0.25 mg tablet 0.25 mg PO QPM PRN #90 tab 09/07/18 09/17/18 Unknown sertraline 50 mg tablet 50 mg PO DAILY #90 tab 09/07/18 09/17/18 09/16/18 hydromorphone 2 mg tablet 2 mg PO Q8H PRN #90 tab 09/10/18 09/17/18 Unknown cannabidiol (CBD) 100 mg/mL oral See Rx Instructions .ROUTE 09/14/18 09/17/18 Unknown solution .COMPLEX #100 ml aspirin 325 mg PO DAILY 09/17/18 09/17/18 09/14/18 cyanocobalamin (vitamin B-12) 1,000 mcg PO DAILY 09/17/18 09/17/18 09/16/18 [Vitamin B-12] ranitidine HCl 300 mg PO HS 09/17/18 09/17/18 09/16/18 Active Medications Generic Name Dose Route Start Last Admin Trade Name Freq PRN Reason Stop Dose Admin Hydromorphone HCl 1 mg 09/17/18 11:15 09/18/18 07:20 Dilaudid IV 10/01/18 11:14 1 mg Q4 PRN Administration Pain Protocol Pantoprazole Sodium 40 mg/ 100 mls @ 20 mls/hr 09/17/18 05:45 09/18/18 11:53 Dextrose IV 09/19/18 10:44 20 mls/hr Q5H MONIQUE Administration Octreotide Acetate 500 mcg/ 105 mls @ 10.5 mls/hr 09/17/18 06:45 09/18/18 11:53 Sodium Chloride IV 09/19/18 06:44 50 mcg/hr .Q10H MONIQUE 10.5 mls/hr Administration 50 MCG/HR Parenteral Electrolytes 1,000 mls @ 125 mls/hr 09/17/18 08:38 09/18/18 07:26 Normosol-R IV 10/17/18 08:37 Not Given .Q8H MONIQUE Levothyroxine Sodium 75 mcg/ 3.75 mls @ 2 mls/min 09/17/18 09:00 09/18/18 09:19 Syringe IV 10/17/18 08:59 2 mls/min DAILY@0900 MONIQUE Administration Piperacillin Sod/Tazobactam 120 mls @ 30 mls/hr 09/17/18 22:00 09/18/18 09:49 Sod 4.5 gm/ Dextrose IV 09/27/18 21:59 Infused Q8H MONIQUE Infusion Protocol Acetaminophen 1,000 mg in 100 mls @ 400 mls/hr 09/18/18 09:35 09/18/18 10:49 Ofirmev IV 10/18/18 09:34 Infused Q8H PRN Infusion Pain or Fever Ioversol 94 ml 09/17/18 13:52 09/17/18 13:53 Optiray 320 100ml IV 09/21/18 13:51 94 ml ONCE PRN Administration Interaction Checking Miscellaneous 1 ea 09/17/18 09:00 09/18/18 09:19 Icu Electrolyte Replacement Protocol N/A 09/24/18 08:59 1 ea QAM MONIQUE Administration Ondansetron HCl 4 mg 09/17/18 16:55 09/18/18 07:26 Zofran IV 10/17/18 16:54 4 mg Q6H PRN Administration Nausea Sertraline HCl 50 mg 09/18/18 09:00 09/18/18 09:19 Zoloft PO 10/18/18 08:59 Not Given QAM [facility] (1) GI bleed GI bleed type/associated pathology: unspecified gastrointestinal hemorrhage type Qualified Code(s): K92.2 - Gastrointestinal hemorrhage, unspecified (2) Anemia Anemia type: unspecified type Qualified Code(s): D64.9 - Anemia, unspecified (3) Cirrhosis Ascites presence: with ascites Hepatic cirrhosis type: unspecified hepatic cirrhosis Qualified Code(s): K74.60 - Unspecified cirrhosis of liver; R18.8 - Other ascites
[2018-09-18] MEDS ORDERED: LAVAGE SOLUTION 4000ML PO SCH (13:30)
[2018-09-18] MEDS ORDERED: Nursing to Pharmacy Communication ONE (15:40)
--- NOTE | 2018-09-18 16:54 | Ultrasound Report ---
ULTRASOUND-GUIDED DIAGNOSTIC AND THERAPEUTIC PARACENTESIS: HISTORY: Ascites. Procedure: The procedure and its risks, benefits and alternatives were discussed with the patient and written informed consent was obtained. Preliminary ultrasound of the abdomen was performed to determ ine a safe needle entry site. The right lower quadrant was prepped and draped in the usual sterile fashion. 1% Lidocaine was used f or local anesthesia. A paracentesis needle-sheath was inserted into the peritoneal space using ultras ound guidance. The needle was removed and the sheath was connected to tubing and a vacuum suction dev ice. A total of 4 liters of yellow ascites was aspirated. The sheath was removed and a sterile dressi ng applied. The patient tolerated the procedure well and there were no immediate complications. IMPRESSION: Ultrasound-guided therapeutic and diagnostic paracentesis with aspiration of 4 liters of ascites. 1 L was sent to the laboratory for further evaluation. Electronically signed by: Ernie Silva M.D. 09/18/2018 4:52 PM
[2018-09-18 17:49] LABS: Albumin Peritoneal Fluid 0.6 g/dl; LDH Peritoneal Fluid 37 U/L; Total Protein Peritoneal Fluid 1.1 g/dl
[2018-09-18 18:33] LABS: Hematocrit (blood only) 26.1 % (37-47); Hemoglobin 8.1 g/dL (12.0-16.0)
[2018-09-18 19:20] LABS: Appearance Peritoneal Fluid CLEAR; Color Peritoneal Fluid YELLOW; Mononuclear WBC Peritoneal 79.1 %; Polynuclear WBC Peritoneal 20.9 %; RBC Peritoneal Fluid (A) < 3000 /uL; WBC Peritoneal Fluid (A) 205 /ul (0-300)
[2018-09-19] MEDS: HYDROmorphone INJ 1 MG/ML SYRINGE IV PRN ×5 (00:56→23:52)
[2018-09-19] MEDS: NORMOSOL-R 1,000 ML IV SCH (01:24)
[2018-09-19 04:30] LABS: Basophils # (auto) 0.02 K/uL (0-0.2); Basophils % (auto) 0.2 %; Eosinophils % (auto) 1.1 %; Hematocrit (blood only) 27.7 % (37-47); Hemoglobin 8.7 g/dL (12.0-16.0); Immature Granulocytes # (auto) 0.04 K/uL (0.00-0.02); Immature Granulocytes % (auto) 0.4 %; Lymphocytes # (auto) 1.24 K/uL (1.2-3.4); Lymphocytes % (auto) 13.4 %; Mean Corpuscular Hgb Conc 31.4 g/dL (32-36); Mean Corpuscular Volume 87.4 fL (80-100); Mean Platelet Volume 8.9 fL (7.4-10.4); Monocytes # (auto) 0.92 K/uL (0.11-0.59); Monocytes % (auto) 9.9 %; Neutrophils # (auto) 6.95 K/uL (1.4-6.5); Nucleated RBC # (auto) 0.03 K/uL (0-0); Nucleated RBC % (auto) 0.3 %; Platelet Count 180 K/uL (130-400); RDW Coefficient of Variation 16.8 % (11.5-14.5); RDW Standard Deviation 52.7 fL (36.4-46.3); Red Blood Count 3.17 M/uL (4.2-5.4); White Blood Count 9.27 K/uL (4.8-10.8)
[2018-09-19 04:44] LABS: INR 1.3 (0.9-1.1)
[2018-09-19 04:53] LABS: BUN Creatinine Ratio 20.3 (10-20); Calcium 7.6 mg/dl (8.5-10.1); Creatinine Clr Calc Pharmacy 87.9 ml/min; Est GFR (African American) 101.5; Est GFR (Non-African American) 87.6; Phosphorus 1.9 mg/dl (2.5-4.9); Potassium 3.4 mmol/L (3.5-5.1)
[2018-09-19] MEDS: PIPERACILLIN/TAZOBACTAM 4.5 GM in DEXTROSE 5% 100 ML IV SCH (05:09)
[2018-09-19] MEDS ORDERED: POTASSIUM PHOS 3 MMOL/1 ML INFUSION IV STA (07:23)
[2018-09-19] MEDS ORDERED: POTASSIUM PHOSPHATE 30 MMOL in SODIUM CHLORIDE 0.9% 500 ML IV ONE (07:30)
--- NOTE | 2018-09-19 07:38 | Hospitalist Progress Note ---
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 GI evaluation is having another therapeutic paracentesis of 09/19 she was transfused 2 units packed red blood cells but hgb is still low scheduled for additional 2 units concern for ascites and elevation of wbc did start zosyn therapeutic and diagnostic paracentesis 09/18 with 4 liters removed with repeat paracentesis consider albumin use (2) Hypertension: Patient typically takes carvedilol 25mg twice daily since bp is creeping upward, will start coreg at 50% and continue to hold amlodipine which be held and aspirin for coronary disease which is also being held (3) Hypothyroidism: To be on Synthroid 125 is converted to po again (4) Diabetes mellitus, type 2: Diabetes is listed on her problem list her blood glucose is 131 glucoses have been reasonable (5) Depression with anxiety: Typical on Zoloft therapy is been worse of late as her recently is been diagnosed with metastatic cancer (6) Solitary pulmonary nodule: This is been noted in her history however intake chest x-ray is concerned for changes in this nodule , the lung nodule clinic has researched and she has refused work up in the past, will discuss with pt (7) DVT prophylaxis: SCDs Subjective Patient feels improved today her hemoglobin has been stable she tolerated her colonoscopy this morning without significant problems. No defined source of bleeding was seen distal diverticuli. I spoke to gastroneurology today the plan on doing another therapeutic paracentesis today Review of Systems Review of Systems: ROS: Patient appears weak but less pale than yesterday No double vision blurry vision No problems with speech or swallowing No palpitations, chest pain or pressure No Wheezing or breathing issues No abdominal pain some distention dullness no pain or tenderness No burning urine urine frequency or changes in color No focal joint pain or muscle pain No skin rashes or oral lesions No unusual bruising or bleeding No focused back pain or numbness or loss of strength No changes in memory or confusion Physical Exam Physical Exam: The patient appeared well nourished and normally developed. Vital signs as documented. Head exam is unremarkable. normocephalic, atraumatic Neck is without jugular venous distension, thyromegaly, or lymphademopathy Lungs are clear to auscultation and percussion. Cardiac exam reveals Rhythm is regular. First and second heart sounds normal. Abdominal exam reveals normal bowel sounds distended dull fluid wave is present Extremities are nonedematous and both pedal pulses are present Neurologic exam is A&Ox3, no focal deficits, strength is equal bilateral Psychologically seems neither anxious or depressed Skin is warm Dry somewhat pale but less so than yesterday Results & Data Vital Signs (Past 12 Hours) Vital Signs Temp Pulse Resp BP Pulse Ox 09/19/18 06:01 63 13 111/50 L 93 09/19/18 06:00 63 15 94 09/19/18 05:30 63 12 97 09/19/18 05:01 68 22 143/75 H 97 09/19/18 05:00 64 20 97 09/19/18 04:30 68 22 96 09/19/18 04:01 36.6 C 66 18 124/68 98 09/19/18 04:00 65 16 98 09/19/18 03:30 70 20 92 09/19/18 03:01 68 13 139/70 97 09/19/18 03:00 69 13 97 09/19/18 02:30 67 11 L 95 09/19/18 02:02 72 21 97 09/19/18 02:01 72 19 144/71 H 96 09/19/18 02:00 73 21 97 09/19/18 01:30 67 16 96 09/19/18 01:01 65 14 135/60 96 09/19/18 01:00 66 23 97 09/19/18 00:30 90 15 96 09/19/18 00:00 37.1 C 70 12 143/70 H 97 09/18/18 23:30 69 12 97 09/18/18 23:00 72 19 134/82 97 09/18/18 22:30 69 16 97 09/18/18 22:02 68 14 97 09/18/18 22:01 70 20 125/61 97 09/18/18 22:00 69 16 98 09/18/18 21:30 67 11 L 98 09/18/18 21:01 67 10 L 128/65 97 09/18/18 21:00 67 10 L 97 09/18/18 20:30 67 17 97 09/18/18 20:01 36.4 C L 68 17 145/73 H 95 09/18/18 20:00 66 21 96
--- NOTE | 2018-09-19 07:54 | Gastroenterology Progress Note ---
Date of Service September 19, 2018 Assessment & Plan (1) GI bleed: 78 year old female wit history of NAFLD cirrhosis, grade 2 esophageal varices & portal HTN gastropathy on carvedilol and new ascites undergoing planned outpatient paracentesis this week who presets in the ED w/ report of dark, tarry stools and symtpomatic anemia since Monday evening. Denies any coffee ground emesis, hematemesis or BRBPR. She is awake, alert and oriented w/ systlic BP 110's in the ER, undergoing transfer to the ICU. 1 unit RBC running, on IV ABX, octreotide, protonix. Received a dose of IV reglan. S/P EGD/CT which were negative. S/P 4L paracentesis, SAAG PMN 164 (on day 3 of abx) planned for cscopy today. NPO Colonoscopy today Trend H&H Transfuse PRN Monitor and document all GI output Would continue full 7 day course of ABX for SBP given high PMN on day 3 of ABX Thank you for allowing us to participate in the care of this patient. Please call with any acute changes, questions or concerns. Please see addendum below with additional recommendation from my supervising physician. Attg add: I innterviewed and examined pt, reviewed chart and labs. Pt without gross bleeding, stable hgb. (2) Esophageal varices: (3) Cirrhosis: (4) Ascites: Subjective Pt was seen and evaluated in endoscopy, chart reviewed. Is NPO for colonoscopy prep w/ liquid green/yellow stool. Continuing to feel better, less fatigued/weak. Notes her abdomen is still bloated but significantly improved s/p paracentesis. Paracentesis: PMN 164 but currently on ABX, SAAG 2.1 w/ total protein 1 indicative of portal HTN as source of ascites Diagnosis: NAFLD cirrhosis Decompensations Ascites: large volume, s/p 4L paracentesis 09/19 w/ fluid sent Varices: yes, grade II on carvedilol Hepatic Encephalopathy: none Screenings EGD: 2020 RUQ US: due Immunizations: status unknown Review of Systems Constitutional: no fever, no chills and no fatigue Respiratory: no cough, no dyspnea and no wheezing Cardiovascular: no chest pain, no radiating jaw, neck or arm pain and no dyspnea on exertion Gastrointestinal: + bloating; no abdominal pain, no nausea, no vomiting, no coffee ground emesis, no blood in stools and no melena Physical Exam Constitutional: + ill appearing (chronic) and + obese; no acute distress Neck: trachea midline Respiratory: normal respiratory effort; no respiratory distress Cardiovascular: Rate/Rhythm: regular rate and regular rhythm Gastrointestinal (Abdomen): Inspection/Auscultation: + abdomen distended and normal bowel sounds Percussion/Palpation: abdomen soft and + ascites; abdomen nontender, no guarding and abdomen not rigid Skin: no rashes, warm and dry Results & Data Vital Signs (Past 12 Hours) Vital Signs Temp Pulse Resp BP Pulse Ox 09/19/18 06:01 63 13 111/50 L 93 09/19/18 06:00 63 15 94 09/19/18 05:30 63 12 97 09/19/18 05:01 68 22 143/75 H 97 09/19/18 05:00 64 20 97 09/19/18 04:30 68 22 96 09/19/18 04:01 36.6 C 66 18 124/68 98 09/19/18 04:00 65 16 98 09/19/18 03:30 70 20 92 09/19/18 03:01 68 13 139/70 97 09/19/18 03:00 69 13 97 09/19/18 02:30 67 11 L 95 09/19/18 02:02 72 21 97 09/19/18 02:01 72 19 144/71 H 96 09/19/18 02:00 73 21 97 09/19/18 01:30 67 16 96 09/19/18 01:01 65 14 135/60 96 09/19/18 01:00 66 23 97 09/19/18 00:30 90 15 96 09/19/18 00:00 37.1 C 70 12 143/70 H 97 09/18/18 23:30 69 12 97 09/18/18 23:00 72 19 134/82 97 09/18/18 22:30 69 16 97 09/18/18 22:02 68 14 97 09/18/18 22:01 70 20 125/61 97 09/18/18 22:00 69 16 98 09/18/18 21:30 67 11 L 98 09/18/18 21:01 67 10 L 128/65 97 09/18/18 21:00 67 10 L 97 09/18/18 20:30 67 17 97 09/18/18 20:01 36.4 C L 68 17 145/73 H 95 09/18/18 20:00 66 21 96 Laboratory Results 09/19/18 09/19/18 09/19/18 Range/Units 04:15 04:15 04:15 WBC 9.27 (4.8-10.8) K/uL RBC 3.17 L (4.2-5.4) M/uL Hgb 8.7 L (12.0-16.0) g/dL Hct 27.7 L (37-47) % MCV 87.4 (80-100) fL MCH 27.4 (25-34) pg MCHC 31.4 L (32-36) g/dL RDW Std Deviation 52.7 H (36.4-46.3) fL RDW Coeff of Mile 16.8 H (11.5-14.5) % Plt Count 180 (130-400) K/uL MPV 8.9 (7.4-10.4) fL Immature Gran % (Auto) 0.4 % Neut % (Auto) 75.0 % Lymph % (Auto) 13.4 % Owen % (Auto) 9.9 % Eos % (Auto) 1.1 % Baso % (Auto) 0.2 % Immature Gran # (Auto) 0.04 H (0.00-0.02) K/uL Neut # (Auto) 6.95 H (1.4-6.5) K/uL Lymph # (Auto) 1.24 (1.2-3.4) K/uL Owen # (Auto) 0.92 H (0.11-0.59) K/uL Eos # (Auto) 0.10 (0-0.5) K/uL Baso # (Auto) 0.02 (0-0.2) K/uL Absolute Nucleated RBC 0.03 H (0-0) K/uL Nucleated RBC % (auto) 0.3 % PT 13.0 H (9.0-12.0) Seconds INR 1.3 H (0.9-1.1) Sodium 141 (136-145) mmol/L Potassium 3.4 L (3.5-5.1) mmol/L Chloride 107 (98-107) mmol/L Carbon Dioxide 32 (21-32) mmol/L Anion Gap 2.0 L (3-11) BUN 13 D (7-18) mg/dl Creatinine 0.62 (0.6-1.2) mg/dl Est Cr Clr Drug Dosing 87.9 ml/min Est GFR ( Amer) 101.5 Est GFR (Non-Af Amer) 87.6 BUN/Creatinine Ratio 20.3 H (10-20) Glucose 95 (70-99) mg/dl POC Glucose (70-99) Calcium 7.6 L (8.5-10.1) mg/dl Phosphorus 1.9 L (2.5-4.9) mg/dl Magnesium 2.0 (1.8-2.4) mg/dl Peritoneal Color Peritoneal Appearance Peritoneal WBC (0-300) /ul Peritoneal RBC /uL Mononuclear WBCs % % Polynuclear WBCs % % Peritoneal Tot Protein g/dl Peritoneal Albumin g/dl Peritoneal LDH U/L Blood Type Antibody Screen Crossmatch 09/18/18 09/18/18 09/18/18 Range/Units Unknown 23:46 18:25 WBC (4.8-10.8) K/uL RBC (4.2-5.4) M/uL Hgb 8.1 L (12.0-16.0) g/dL Hct 26.1 L (37-47) % MCV (80-100) fL MCH (25-34) pg MCHC (32-36) g/dL RDW Std Deviation (36.4-46.3) fL RDW Coeff of Mile (11.5-14.5) % Plt Count (130-400) K/uL MPV (7.4-10.4) fL Immature Gran % (Auto) % Neut % (Auto) % Lymph % (Auto) % Owen % (Auto) % Eos % (Auto) % Baso % (Auto) % Immature Gran # (Auto) (0.00-0.02) K/uL Neut # (Auto) (1.4-6.5) K/uL Lymph # (Auto) (1.2-3.4) K/uL Owen # (Auto) (0.11-0.59) K/uL Eos # (Auto) (0-0.5) K/uL Baso # (Auto) (0-0.2) K/uL Absolute Nucleated RBC (0-0) K/uL Nucleated RBC % (auto) % PT (9.0-12.0) Seconds INR (0.9-1.1) Sodium (136-145) mmol/L Potassium (3.5-5.1) mmol/L Chloride (98-107) mmol/L Carbon Dioxide (21-32) mmol/L Anion Gap (3-11) BUN (7-18) mg/dl Creatinine (0.6-1.2) mg/dl Est Cr Clr Drug Dosing ml/min Est GFR ( Amer) Est GFR (Non-Af Amer) BUN/Creatinine Ratio (10-20) Glucose (70-99) mg/dl POC Glucose 111 H (70-99) Calcium (8.5-10.1) mg/dl Phosphorus (2.5-4.9) mg/dl Magnesium (1.8-2.4) mg/dl Peritoneal Color YELLOW Peritoneal Appearance CLEAR Peritoneal WBC 205 (0-300) /ul Peritoneal RBC < 3000 /uL Mononuclear WBCs % 79.1 % Polynuclear WBCs % 20.9 % Peritoneal Tot Protein 1.1 g/dl Peritoneal Albumin 0.6 g/dl Peritoneal LDH 37 U/L Blood Type Antibody Screen Crossmatch 09/18/18 09/18/18 09/17/18 Range/Units 18:12 12:16 05:22 WBC (4.8-10.8) K/uL RBC (4.2-5.4) M/uL Hgb (12.0-16.0) g/dL Hct (37-47) % MCV (80-100) fL MCH (25-34) pg MCHC (32-36) g/dL RDW Std Deviation (36.4-46.3) fL RDW Coeff of Mile (11.5-14.5) % Plt Count (130-400) K/uL MPV (7.4-10.4) fL Immature Gran % (Auto) % Neut % (Auto) % Lymph % (Auto) % Owen % (Auto) % Eos % (Auto) % Baso % (Auto) % Immature Gran # (Auto) (0.00-0.02) K/uL Neut # (Auto) (1.4-6.5) K/uL Lymph # (Auto) (1.2-3.4) K/uL Owen # (Auto) (0.11-0.59) K/uL Eos # (Auto) (0-0.5) K/uL Baso # (Auto) (0-0.2) K/uL Absolute Nucleated RBC (0-0) K/uL Nucleated RBC % (auto) % PT (9.0-12.0) Seconds INR (0.9-1.1) Sodium (136-145) mmol/L Potassium (3.5-5.1) mmol/L Chloride (98-107) mmol/L Carbon Dioxide (21-32) mmol/L Anion Gap (3-11) BUN (7-18) mg/dl Creatinine (0.6-1.2) mg/dl Est Cr Clr Drug Dosing ml/min Est GFR ( Amer) Est GFR (Non-Af Amer) BUN/Creatinine Ratio (10-20) Glucose (70-99) mg/dl POC Glucose 138 H 118 H (70-99) Calcium (8.5-10.1) mg/dl Phosphorus (2.5-4.9) mg/dl Magnesium (1.8-2.4) mg/dl Peritoneal Color Peritoneal Appearance Peritoneal WBC (0-300) /ul Peritoneal RBC /uL Mononuclear WBCs % % Polynuclear WBCs % % Peritoneal Tot Protein g/dl Peritoneal Albumin g/dl Peritoneal LDH U/L Blood Type A Positive Antibody Screen NEGATIVE Crossmatch See Detail (1) GI bleed GI bleed type/associated pathology: unspecified gastrointestinal hemorrhage type Qualified Code(s): K92.2 - Gastrointestinal hemorrhage, unspecified (2) Ascites Ascites type: other type Qualified Code(s): R18.8 - Other ascites (3) Esophageal varices Esophageal varices bleeding: with bleeding Esophageal varices type: unspecified type Qualified Code(s): I85.01 - Esophageal varices with bleeding (4) Cirrhosis Ascites presence: with ascites Hepatic cirrhosis type: unspecified hepatic cirrhosis Qualified Code(s): K74.60 - Unspecified cirrhosis of liver; R18.8 - Other ascites
[2018-09-19] MEDS: ICU ELECTROLYTE REPLACEMENT PROTOCOL SCH (08:17)
[2018-09-19] MEDS ORDERED: ePHEDrine sulfate 50 MG/ML AMP IV PRN (08:18)
[2018-09-19] MEDS ORDERED: ATROPINE SULFATE 0.1 MG/ML 10ML SYR IV PRN (08:18)
[2018-09-19] MEDS ORDERED: LIDOCAINE HCL 2% 2 ML VIAL/AMP(20MG/ML) INFIL ONE (08:21)
[2018-09-19] MEDS ORDERED: fentaNYL citrate 100 MCG/2 ML VIAL ONE (08:21)
[2018-09-19] MEDS ORDERED: PROPOFOL IV EMULSION 10 MG/ML 20 ML VIAL IV ONE ×2 (08:21→09:10)
--- NOTE | 2018-09-19 09:27 | GI REPORT ---
Patient Name: Bernarda Lara Procedure Date: 09/19/2018 8:26 AM Date of : 1940 Admit Type: Inpatient Age: 78 Gender: Female Attending MD: Yulia Mcgill MD Procedure: Colonoscopy Providers: Yulia Mcgill MD Referring MD: Chava Santiago Indications: Melena Medicines: See the Anesthesia note for documentation of the administered medications Complications: No immediate complications. Estimated Blood Loss: Estimated blood loss: none. Procedure: Pre-Anesthesia Assessment: - ASA Grade Assessment: III - A patient with severe systemic disease. After I obtained informed consent, the scope was passed under direct vision. Throughout the procedure, the patient's blood pressure, pulse, and oxygen saturations were monitored continuously. The scope was introduced through the anus and advanced to the terminal ileum. The colonoscopy was performed without difficulty. The patient tolerated the procedure well. The quality of the bowel preparation was good. Findings: The perianal and digital rectal examinations were normal. A few small-mouthed diverticula were found in the sigmoid colon. Tattoo at hepatic flexure without evidence of recurrent polyp. Hemorrhoids were found during retroflexion. The exam was otherwise without abnormality. Impression: - Diverticulosis in the sigmoid colon. - Hemorrhoids. - The examination was otherwise normal. - No specimens collected. Recommendation: - Discharge patient to ICU. Cont to monitor hgb. Bleeding scan if re-bleeds. Yulia Mcgill M.D. Yulia Mcgill MD 09/19/2018 9:27:26 AM This report has been signed electronically. Note Initiated On: 09/19/2018 8:26 AM Number of Addenda: 0 I attest to the content of the Intraoperative Record and orders documented therein, exceptions below {[id number]}
[2018-09-19] MEDS: SERTRALINE HCL 50 MG TABLET PO SCH (10:19)
[2018-09-19] MEDS: LEVOTHYROXINE SODIUM 125 MCG TABLET PO SCH (10:19)
[2018-09-19] MEDS ORDERED: PANTOprazole 40 MG in SYRINGE 0 ML IV SCH (11:00)
[2018-09-19] MEDS ORDERED: CARVEDILOL 3.125 MG TAB PO STA (14:00)
[2018-09-19] MEDS ORDERED: ALBUMIN 25% 50 ML IV SCH (14:00)
--- NOTE | 2018-09-19 15:28 | Anesthesiology Progress Note ---
Date of Service September 19, 2018 Anesthesia Post Procedure Vital Signs Vital Signs: Temp Pulse Pulse Resp BP BP Pulse Ox 09/19/18 13:40 37.1 C 76 16 121/66 92 09/19/18 12:08 36.5 C 76 17 147/84 H 93 09/19/18 11:02 73 22 90 09/19/18 11:01 73 16 116/68 92 09/19/18 10:54 78 18 141/69 H 92 09/19/18 10:31 36.8 C 74 21 147/91 H 90 09/19/18 10:09 63 15 134/60 91 09/19/18 09:52 65 18 141/64 H 100 09/19/18 09:37 72 16 144/65 H 100 09/19/18 09:22 36.0 C L 60 14 116/60 96 09/19/18 07:52 37.0 C 65 14 144/73 H 96 09/19/18 07:00 37.0 C 69 18 135/64 95 09/19/18 06:01 63 13 111/50 L 93 09/19/18 06:00 63 15 94 09/19/18 05:30 63 12 97 09/19/18 05:01 68 22 143/75 H 97 09/19/18 05:00 64 20 97 09/19/18 04:30 68 22 96 09/19/18 04:01 36.6 C 66 18 124/68 98 09/19/18 04:00 65 16 98 09/19/18 03:30 70 20 92 09/19/18 03:01 68 13 139/70 97 09/19/18 03:00 69 13 97 09/19/18 02:30 67 11 L 95 09/19/18 02:02 72 21 97 09/19/18 02:01 72 19 144/71 H 96 09/19/18 02:00 73 21 97 09/19/18 01:30 67 16 96 09/19/18 01:01 65 14 135/60 96 09/19/18 01:00 66 23 97 09/19/18 00:30 90 15 96 09/19/18 00:00 37.1 C 70 12 143/70 H 97 09/18/18 23:30 69 12 97 09/18/18 23:00 72 19 134/82 97 09/18/18 22:30 69 16 97 09/18/18 22:02 68 14 97 09/18/18 22:01 70 20 125/61 97 09/18/18 22:00 69 16 98 09/18/18 21:30 67 11 L 98 09/18/18 21:01 67 10 L 128/65 97 09/18/18 21:00 67 10 L 97 09/18/18 20:30 67 17 97 09/18/18 20:01 36.4 C L 68 17 145/73 H 95 09/18/18 20:00 66 21 96 09/18/18 19:30 67 18 97 09/18/18 19:01 69 18 101/47 L 97 09/18/18 19:00 70 13 98 09/18/18 18:30 68 16 97 09/18/18 18:03 65 10 L 129/61 98 09/18/18 18:00 68 12 129/61 98 09/18/18 16:00 66 Pain Intensity Abdomen: Pain Intensity: 2 Bilateral Back: Pain Intensity: 3 Transfer of Care Handoff Completed per policy Notes Mental Status: alert / awake / arousable Patient Amnestic to Procedure: Yes Nausea / Vomiting: adequately controlled Pain: adequately controlled Airway Patency, RR, SpO2: stable & adequate BP & HR: stable & adequate Hydration State: stable & adequate Anesthetic Complications: no major complications apparent and Pt Satisfied with anesthetic care
[2018-09-19] MEDS: ONDANSETRON INJ 2 MG/ML 2 ML VIAL IV PRN (16:25)
[2018-09-19] MEDS: cefTRIAXone SODIUM 2,000 MG in DEXTROSE 5% 50 ML IV SCH (16:30)
[2018-09-19] MEDS: HYDROmorphone INJ 0.5 MG/0.5 ML SYR IV PRN (20:10)
[2018-09-19] MEDS ORDERED: CARVEDILOL 12.5 MG TAB PO SCH (21:00)
[2018-09-19] MEDS: PANTOprazole 40 MG TAB PO SCH (22:05)
[2018-09-19] MEDS ORDERED: TRAZODONE HCL 50 MG TAB PO SCH (22:20)
[2018-09-20] MEDS: LEVOTHYROXINE SODIUM 125 MCG TABLET PO SCH (05:53)
[2018-09-20] MEDS: HYDROmorphone INJ 0.5 MG/0.5 ML SYR IV PRN (06:31)
[2018-09-20 07:53] LABS: Basophils # (auto) 0.02 K/uL (0-0.2); Basophils % (auto) 0.3 %; Eosinophils % (auto) 1.3 %; Hematocrit (blood only) 27.6 % (37-47); Hemoglobin 8.5 g/dL (12.0-16.0); Immature Granulocytes # (auto) 0.01 K/uL (0.00-0.02); Immature Granulocytes % (auto) 0.1 %; Lymphocytes # (auto) 1.15 K/uL (1.2-3.4); Lymphocytes % (auto) 15.4 %; Mean Corpuscular Hgb Conc 30.8 g/dL (32-36); Mean Corpuscular Volume 88.5 fL (80-100); Mean Platelet Volume 9.6 fL (7.4-10.4); Monocytes # (auto) 0.93 K/uL (0.11-0.59); Monocytes % (auto) 12.4 %; Neutrophils # (auto) 5.28 K/uL (1.4-6.5); Neutrophils % (auto) 70.5 %; Platelet Count 167 K/uL (130-400); RDW Coefficient of Variation 16.9 % (11.5-14.5); RDW Standard Deviation 52.8 fL (36.4-46.3); Red Blood Count 3.12 M/uL (4.2-5.4); White Blood Count 7.49 K/uL (4.8-10.8)
[2018-09-20 08:01] LABS: INR 1.2 (0.9-1.1); Prothrombin Time 12.5 Seconds (9.0-12.0)
[2018-09-20 08:18] LABS: BUN Creatinine Ratio 18.3 (10-20); Calcium 8.1 mg/dl (8.5-10.1); Est GFR (African American) 106.2; Est GFR (Non-African American) 91.7; Magnesium 2.1 mg/dl (1.8-2.4); Potassium 3.3 mmol/L (3.5-5.1)
[2018-09-20] MEDS: SERTRALINE HCL 50 MG TABLET PO SCH (08:18)
[2018-09-20] MEDS: PANTOprazole 40 MG TAB PO SCH (08:18)
--- NOTE | 2018-09-20 08:43 | Gastroenterology Progress Note ---
Date of Service September 20, 2018 Assessment & Plan (1) GI bleed: 78 year old female wit history of NAFLD cirrhosis, grade 2 esophageal varices & portal HTN gastropathy on carvedilol and new ascites undergoing planned outpatient paracentesis this week who presets in the ED w/ report of dark, tarry stools and symtpomatic anemia since Monday evening. Denies any coffee ground emesis, hematemesis or BRBPR. She is awake, alert and oriented w/ systlic BP 110's in the ER, undergoing transfer to the ICU. 1 unit RBC running, on IV ABX, octreotide, protonix. Received a dose of IV reglan. S/P EGD/CT and colonoscopy which were negative. S/P 4L paracentesis, SAAG PMN 164 (on day 3 of abx) to go for repeat paracentesis today NPO 4L paracentesis today Can have albumin after Trend H&H Transfuse PRN Monitor and document all GI output Would continue full 7 day course of ABX for SBP given high PMN on day 3 of ABX GI will sign off. Will need OP GI follow up in 1-2 weeks. Thank you for allowing us to participate in the care of this patient. Please call with any acute changes, questions or concerns. Please see addendum below with additional recommendation from my supervising physician. Attg add: I interviewed and examined pt, reviewed chart and labs. Pt without further bleeding. Agree with plan as outlined above - Repeat tap today, complete 7 d course of abx with cipro BID. Decrease PPI to once daily. Begin lasix 20 mg/ aldactone 50 mg upon discharge for ascites, with plans to check BMP in 1-2 weeks; low Na diet. May consider small bowel imaging to rule out met lung cancer to small bowel, although yield seems low given neg CT. (2) Esophageal varices: (3) Cirrhosis: (4) Ascites: Subjective Pt was seen and evaluated, chart reviewed. Did not get paracentesis yesterday due to timing. No abd pain. No nausea, vomiting. Having brown stool yesterday, No BM today. No black/bloody stools. No fever, chills, CP, SOB Diagnosis: NAFLD cirrhosis Decompensations Ascites: large volume Varices: yes, grade II on carvedilol Hepatic Encephalopathy: none Screenings EGD: 2020 RUQ US: due Immunizations: status unknown Colonoscopy 2019: Diverticulosis in the sigmoid colon. Hemorrhoids. The examination was otherwise normal. No specimens collected. EGD 2019: Non-bleeding grade II esophageal varices. Mild portal gastropathy. EGD 2019: Normal upper third of esophagus and middle third ofesophagus. Non- bleeding grade II esophageal varices. Portal hypertensive gastropathy.Normal examined duodenum. No specimens collected. Colonoscopy 2018: The examined portion of the ileum was normal. Two 4 to 6 mm polyps in the ascending colon, removed witha cold snare. Resected and retrieved. One 5 mm polyp in the transverse colon, removed with acold snare. Resected and retrieved.Moderate diverticulosis in the sigmoid colon.Melanosis in the colon. Internal hemorrhoids. The examination was otherwise normal. Review of Systems Constitutional: no fever, no chills and no fatigue Respiratory: no cough, no dyspnea and no wheezing Cardiovascular: no chest pain, no radiating jaw, neck or arm pain and no dyspnea Gastrointestinal: no abdominal pain, no vomiting, no blood in stools and no melena Physical Exam Constitutional: + ill appearing (chronic) and + obese; no acute distress Neck: trachea midline Respiratory: normal respiratory effort, lungs clear to auscultation normal respiratory effort; no respiratory distress Cardiovascular: RRR, no murmur, no edema Rate/Rhythm: regular rate and regular rhythm Heart Sounds: no click, no gallop and no cardiac rub Gastrointestinal (Abdomen): Inspection/Auscultation: + abdomen distended and normal bowel sounds Percussion/Palpation: abdomen soft and + ascites; abdomen nontender, no guarding, abdomen not rigid and no abdominal mass Skin: no rashes, warm and dry Psychiatric: A+Ox3, euthymic affect Results & Data Vital Signs (Past 12 Hours) Vital Signs Temp Pulse Resp BP Pulse Ox 09/20/18 08:00 37.3 C 64 18 153/81 H 91 09/19/18 23:25 37.4 C 72 18 146/61 H 93 (1) GI bleed GI bleed type/associated pathology: unspecified gastrointestinal hemorrhage type Qualified Code(s): K92.2 - Gastrointestinal hemorrhage, unspecified (2) Ascites Ascites type: other type Qualified Code(s): R18.8 - Other ascites (3) Esophageal varices Esophageal varices bleeding: with bleeding Esophageal varices type: unspecified type Qualified Code(s): I85.01 - Esophageal varices with bleeding (4) Cirrhosis Ascites presence: with ascites Hepatic cirrhosis type: unspecified hepatic cirrhosis Qualified Code(s): K74.60 - Unspecified cirrhosis of liver; R18.8 - Other ascites
[2018-09-20] MEDS ORDERED: ALBUMIN 25% 50 ML IV ONE (08:55)
[2018-09-20] MEDS ORDERED: CARVEDILOL 25 MG TAB PO SCH (09:00)
--- NOTE | 2018-09-20 10:11 | Ultrasound Report ---
PARACENTESIS UNDER ULTRASOUND GUIDANCE CLINICAL HISTORY: Cirrhosis and ascites. COMPARISON STUDY: Abdominal CT dated 09/17/2018. PROCEDURE: The risks, benefits, and alternatives to the procedure were discussed with the patient who voiced understanding. Written informed consent was obtained. Following real-time ultrasound localiza tion of a suitable pocket of fluid in the left lower quadrant, the abdomen was prepped and draped in the usual sterile fashion. The skin and soft tissues were anesthetized with 1% lidocaine. The sheathe d paracentesis was inserted and approximately 5 liters of straw-colored ascitic fluid was removed by vacuum suction. The procedure was well tolerated and without immediate complication. The patient left the department in satisfactory condition. IMPRESSION: Successful ultrasound-guided paracentesis with removal of approximately 5 liters of ascit ic fluid. Electronically signed by: Emeterio Garg M.D. 09/20/2018 10:10 AM
[2018-09-20 12:03] LABS: Appearance Peritoneal Fluid CLEAR; Color Peritoneal Fluid PALE YELLOW; Mononuclear WBC Peritoneal 85.9 %; Polynuclear WBC Peritoneal 14.1 %; RBC Peritoneal Fluid (A) < 3000 /uL; WBC Peritoneal Fluid (A) 257 /ul (0-300)
[2018-09-20] MEDS: cefTRIAXone SODIUM 2,000 MG in DEXTROSE 5% 50 ML IV SCH (14:33)
--- NOTE | 2018-09-20 18:13 | Discharge Summary ---
Date of Service September 20, 2018 Admission HPI Per Admitting Provider 78-year-old female patient with a known history of mass Jones and cirrhosis. She has been having increasing ascites over the last few weeks and was scheduled for an outpatient large-volume paracentesis through [facility] gastroenterology. Patient presented this morning after having dark black bowel movements and being increasingly weak and pale appearing to her family. In the ER she is found to have a hemoglobin of 6 and a systolic blood pressure of 90. Patient responded to volume resuscitation she is currently being transfused. And no time did she have any vomiting of blood or coffee grounds. She is known to have portal hypertension esophageal varices. In the ER she is currently on octreotide and Protonix drip she is being transfused packed red blood cells she will be transferred to the intensive care unit for further evaluation and possible upper endoscopy Her INR is 1.3 on presentation platelets are 404 she does take aspirin Principal Diagnosis acute blood loss anemia ascites s/p paracentesis cirrhosis Discharge Exam Constitutional well developed and average body habitus Eyes no conjunctival abnormality and no scleral abnormality Neck normal visual inspection and trachea midline Respiratory normal respiratory effort; no respiratory distress Auscultation: lungs clear to auscultation bilaterally Cardiovascular RRR, no murmur, no edema Musculoskeletal no cyanosis or clubbing, extremities motor strength 5/5 Discharge Data Allergies Allergy/AdvReac Type Severity Reaction Status Date / Time cortisone AdvReac Intermediate "WEIRD Verified 09/17/18 05:59 FEELING Consultations 09/17/18 06:28 Consult Gastroenterology Stat 09/17/18 07:16 ED Decision to Admit Stat 09/17/18 08:38 Consult Case Management - Discharge Planning Routine Consult Manager Of Distribution Routine 09/18/18 07:53 Consult Lung Nodule Program Routine Procedures Performed Operation Date: 09/17/18 08:30 Actual Procedures p Esophagogastroduodenoscopy in Operating Room(Not Applicable) - Irphan E Gaslightwala Operation Date: 09/19/18 08:30 Actual Procedures p Colonoscopy - Irphan E Gaslightwala Ordered Studies 09/17/18 12:26 CT abd pelvis IV con only Routine 09/18/18 14:36 US paracentesis abd w/image Routine 09/20/18 12:51 US paracentesis abd w/image Routine Hospital Course (1) 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: Current concern for GI bleed upper gi and variceal bleed ruled out, CT scan is not revealing except for known ascites, did have colonoscopy 09/19 patient has no active bleeding seen.. she was transfused 4 units packed red blood cells and hgb has been stable for the last few day concern for ascites and elevation of wbc did start zosyn, GI medicine recommending continue po antibiotic for one week total, d/c on augmentin therapeutic and diagnostic paracentesis, large volume with replacement albumin used (2) Hypertension: carvedilol 25mg twice daily resume amlodipine and aspirin at home (3) Hypothyroidism: To be on Synthroid 125 po (4) Diabetes mellitus, type 2: Diabetes is listed on her problem list her blood glucose is 131 glucoses have been reasonable, reinforce low carbohydrate diet (5) Depression with anxiety: Typical on Zoloft therapy is been worse of late as her recently is been diagnosed with metastatic cancer (6) Solitary pulmonary nodule: This is been noted in her history however intake chest x-ray is concerned for changes in this nodule , the lung nodule clinic has researched and she has refused work up in the past, she states that she will discuss with pcp Total Time Total Time Spent Total Time Spent (In Minutes): greater than 30 minutes were required to prepare discharge Discharge Plan Discharge Items Patient Disposition: Home - Self-Care Reason For Visit: GI BLEED Discharge Diagnosis: anemia from suspected gi bleeding ascites( fluid in abdomen from liver), with removal of more than 8 liters possible mild infection of fluid, recommending one week of antibiotics Discharge Goals: Decrease discomfort and Diagnostic testing Activity: Resume your previous activity Non-emergency contact: Primary Care Provider and Workday Director Call non-emergency contact if: you have any medication questions Follow-up/Referrals: Courtney Jules DO [Primary Care Provider] - Diet: Carb Consistent or DM2 and Low Sodium (2gm) Addtl Provider Instructions: you had a significant amount of blood loss, you did have 4 units of blood. please take a multivitamin with Iron or a vitamin for the next one month ( you can take it longer) to help your body rebuild your blood supply Please finish your antibiotic to assure you have no issues with infection in the fluid taken from your abdomen Please restrict your salt in your diet to less than 2000mg a day Prescriptions: New amoxicillin-pot clavulanate [Augmentin] 875-125 mg tablet 1 tab PO BID Qty: 10 RF: 0 Continued hydromorphone 2 mg tablet 2 mg PO Q8H PRN (Reason: pain) Qty: 90 RF: 0 cholecalciferol (vitamin D3) 5,000 unit tablet 5,000 unit PO DAILY Qty: 30 RF: 0 ferrous sulfate 325 mg (65 mg iron) tablet 325 mg PO TID RF: 0 polyethylene glycol 3350 17 gram/dose powder 17 g PO DAILY PRN (Reason: Constipation) RF: 0 amlodipine 5 mg tablet 5 mg PO DAILY Qty: 90 RF: 0 carvedilol 25 mg tablet 25 mg PO BID Qty: 180 RF: 0 levothyroxine 125 mcg tablet 125 mcg PO QAM Qty: 90 RF: 0 ondansetron 4 mg tablet,disintegrating 4 mg PO .DISSOLVE 1 TO 2 TABL Qty: 90 RF: 0 pantoprazole 40 mg tablet,delayed release (DR/EC) 40 mg PO QAM Qty: 90 RF: 0 pramipexole 0.25 mg tablet 0.25 mg PO QPM PRN (Reason: restless leg(s)) Qty: 90 RF: 0 sertraline 50 mg tablet 50 mg PO DAILY Qty: 90 RF: 0 cannabidiol (CBD) extract 100 mg/mL solution See Rx Instructions .ROUTE .COMPLEX Qty: 100 RF: 0 aspirin 325 mg Tablet 325 mg PO DAILY RF: 0 ranitidine HCl 300 mg Tablet 300 mg PO HS RF: 0 cyanocobalamin (vitamin B-12) [Vitamin B-12] 1,000 mcg Tablet 1,000 mcg PO DAILY RF: 0 No Action OneTouch Ultra Blue Test Strip strip .ROUTE .MEDSUPPLY Qty: 50 RF: 0 Stand-Alone Forms: Call Back Authorization, [facility] Discharge Orders: Discharge Order (Routine); Ordered 09/20/18 Ordered By: Chava Santiago Admission Data Admit Date/Time: 09/17/18 07:22 Attending Provider: Chava Santiago Admit Provider: Chava Santiago Primary Care Provider: Courtney Jules Other Providers: Yulia Mcgill ; Ana Ramires ; Michael James Service: Intensive Care Unit Other Interventions: Discharge Summary Assessment (RN) Last Done: 09/20/18 13:26 DC Date/Time DO NOT enter until pt leaves facility: 09/20/18 14:44
== END 2018-09-20 14:44 | disposition home or self-care (01) | DRG 378 ==
LOC: ED 05:12 → 1E 07:22 → 3N 09-19 12:03

== ENCOUNTER 2019-04-25 10:31 | Inpatient (IN) ==
[2019-04-25] MEDS ORDERED: cefTRIAXone SODIUM 1,000 MG/50 ML BAG IV STA (10:49)
[2019-04-25] MEDS ORDERED: PANTOprazole 80 MG in DEXTROSE 5% 100 ML IV SCH (11:00)
[2019-04-25] MEDS ORDERED: OCTREOTIDE ACETATE 50 MCG in SYRINGE 9.5 ML IV STA (11:21)
[2019-04-25] MEDS: PANTOprazole 40 MG in DEXTROSE 5% 100 ML IV SCH ×3 (11:30→23:05)
[2019-04-25] MEDS: SODIUM CHLORIDE 0.9% 1000ML 1,000 ML IV SCH ×3 (11:33→23:03)
[2019-04-25] MEDS ORDERED: MIDAZOLAM HCL 5 MG/ML 1 ML VIAL IV STA ×2 (11:37→11:58)
[2019-04-25 11:40] LABS: Hematocrit (blood only) 29.4 % (37-47); Hemoglobin 9.7 g/dL (12.0-16.0); Mean Corpuscular Hemoglobin 35.7 pg (25-34); Mean Corpuscular Volume 108.1 fL (80-100); Mean Platelet Volume 10.4 fL (7.4-10.4); Nucleated RBC # (auto) 0.02 K/uL (0-0); Nucleated RBC % (auto) 0.1 %; Platelet Count 236 K/uL (130-400); RDW Coefficient of Variation 14.1 % (11.5-14.5); RDW Standard Deviation 54.9 fL (36.4-46.3); Red Blood Count 2.72 M/uL (4.2-5.4); White Blood Count 19.37 K/uL (4.8-10.8)
[2019-04-25] MEDS ORDERED: MIDAZOLAM HCL 1 MG/ML 2ML VIAL ONE ×2 (11:47→13:15)
[2019-04-25 11:55] LABS: Basophils # (auto) 0.01 K/uL (0-0.2); Basophils % (auto) 0.1 %; Immature Granulocytes # (auto) 0.11 K/uL (0.00-0.02); Immature Granulocytes % (auto) 0.6 %; Lymphocytes # (auto) 2.59 K/uL (1.2-3.4); Lymphocytes % (auto) 13.4 %; Monocytes % (auto) 5.2 %; Neutrophils # (auto) 15.66 K/uL (1.4-6.5); Neutrophils % (auto) 80.7 %
[2019-04-25] MEDS ORDERED: PANTOprazole 40 MG in SYRINGE 0 ML IV ONE (12:00)
[2019-04-25] MEDS: OCTREOTIDE ACETATE 500 MCG in 0.9 % SODIUM CHLORIDE 100 ML IV SCH ×2 (12:35→21:25)
[2019-04-25 12:51] LABS: Albumin Level 2.7 gm/dl (3.4-5.0); BUN Creatinine Ratio 66.6 (10-20); Calcium 9.2 mg/dl (8.5-10.1); Creatinine Clr Calc Pharmacy 48.4 ml/min; Est GFR (African American) 49.8; Magnesium 1.8 mg/dl (1.8-2.4); Potassium 4.8 mmol/L (3.5-5.1)
[2019-04-25 13:00] LABS: Albumin Globulin Ratio 0.7 (0.9-2); Bilirubin,Total 0.5 mg/dl (0.2-1); Globulin 3.9 gm/dl (2.5-4.0); Total Protein 6.6 gm/dl (6.4-8.2); Troponin I 0.201 ng/ml (0-0.045)
--- NOTE | 2019-04-25 13:26 | XRay Report ---
XR chest 1V portable CLINICAL HISTORY: ams, gi bleed dyspnea COMPARISON STUDY: 03/15/2018 FINDINGS: Stable component of emphysematous and interstitial change. Mild stable cardiac enlargement. Diaphragms are smooth. IMPRESSION: Chronic emphysematous and interstitial change. ACT 112: Negative or not required by law. The above report was generated using voice recognition software. It may contain grammatical, syntax or spelling errors. Electronically signed by: Santiago Handy M.D. 04/25/2019 1:25 PM
[2019-04-25] MEDS ORDERED: IOVERSOL 100ml IV PRN (13:33)
--- NOTE | 2019-04-25 13:55 | CT Scan Report ---
CT SCAN OF THE ABDOMEN AND PELVIS WITH IV CONTRAST CLINICAL HISTORY: GI bleeding. COMPARISON STUDY: Abdominal CT dated 09/17/2018. TECHNIQUE: Following the IV administration of 95 cc of Optiray 320, CT scan of the abdomen and pelvi s is performed from the lung bases to the proximal femora. Images are reviewed in the axial, sagittal , and coronal planes. IV contrast was administered without complication. A dose lowering technique wa s utilized adhering to the principles of ALARA. The examination is suboptimal due to lack of patient cooperation and motion artifact. The lower chest was scanned twice as the patient moved during the ex amination. There is also streak artifact from the arms which could not be elevated above the abdomen. CT DOSE: 2185.01 mGy.cm FINDINGS: Lung bases: The heart is normal in size and without pericardial effusion. The coronary arteries are d ensely calcified. The lung bases are clear. There is a small hiatal hernia. Esophageal varices are no ta. Liver: The contrast-enhanced liver is struck in morphology and heterogeneous in attenuation. There is hypertrophy of the left lobe and nodularity of the surface contour.. There is mild central intrahepa tic biliary ductal dilatation. The hepatic veins and portal veins are patent. Gallbladder: Surgically absent. There is unchanged dilatation of the common bile duct. Spleen: Normal in size and attenuation. Pancreas: Atrophic and grossly unremarkable. Adrenal glands: Unremarkable. Kidneys: The contrast enhanced kidneys demonstrate cortical atrophy and are without hydronephrosis. T he kidneys enhance symmetrically. There is a retroaortic left renal vein. Abdominal vasculature: The abdominal aorta is normal in course and caliber. Bowel: No bowel obstruction is seen. Question underdistention versus mild wall thickening of the colo n. There is wall thickening of the right colon which likely represents portal colopathy. There is mil d to moderate colonic diverticulosis without CT evidence of acute diverticulitis. The appendix is we ll-visualized and normal. Peritoneum: There is no intraperitoneal free air. Trace perihepatic ascites is noted. There is laxity of the ventral pelvic wall with protrusion of pelvic contents. Lymphadenopathy: None. Pelvic viscera: The bladder is markedly distended but otherwise normal in appearance. The uterus is s urgically absent. No adnexal lesion is seen. Skeletal structures: The skeletal structures are osteopenic. There are numerous chronic thoracolumbar compression deformities. No lytic or blastic lesions are seen. There is chronic posttraumatic deform ity and postoperative change noted in the left hip. IMPRESSION: 1. Streak and motion compromised examination. 2. The liver is cirrhotic in morphology and heterogeneous in attenuation. 3. Small hiatal hernia and esophageal varices. 4. Question underdistention versus mild wall thickening of the colon. Correlate clinically for eviden ce of a mild colitis. Portal colopathy is suggested in the right colon. 5. Trace perihepatic ascites. 6. Marked bladder distention. 7. Additional findings as above. ACT 112: Negative or not required by law. Electronically signed by: Emeterio Garg M.D. 04/25/2019 1:54 PM
--- NOTE | 2019-04-25 14:29 | Gastrointestinal Consultation ---
Date of Consultation April 25, 2019 Assessment & Plan (1) Encephalopathy, hepatic: 78 y/o female pt with h/o NAFLD cirrhosis complicated by G2 esophageal varices, PHG on BB and PPI, ascites requiring approx q 6 week paracentesis on Lasix, Aldactone, h/o occult GIB in 09/2018 s/p EGD/colon at that time without obvious source, admitted today for melena, acute change in mental status, acute encephalopathy with ammonia of 80 (no prior h/o HE). Currently somnolent after some sedation, VSS with BPs in the 110-120's systolic, HGB 9.7 (previous was 15 in Mar 28, but baseline more like 10-12), elevated BUN at 80. Has octreotide, PPI gtt running, given Rocephin. Rectal exam by ED physician + for melanotic stool. Pt undergoing transfer to the ICU - Keep NPO - Start rectal lactulose as concern for pt to tolerate/be compliant with PO; titrate to 3-4 BMs daily and improvement in ammonia level - Continue IV ABX - Continue IV PPI gtt - Continue octreotide gtt - Trend H&H, transfuse PRN - Will send for Tylenol level and urine tox screen - Hepatic duplex ordered to screen for PVT and head CT ordered for AMS - Monitor and document all GI output - EGD timing to be determined - If no obvious source found; ? small bowel source, lung mets? Thank you for allowing us to participate in the care of this patient. Please call with any acute changes, questions or concerns. Please see addendum below with additional recommendation from my supervising physician. 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: Decompensations: Varices: [G2 on EGD 09/26 on beta linnette] Hepatic encephalopathy: [New onset today] Ascites: [Paracentesis ~ q 6 weeks, last was 12/18/18 with 5 L removed; on outpt Lasix, Aldactone] HCC screening: RUQ US 04/23/2019 with cirrhotic morphology, hepatosplenomegaly, small ascites, dilated CBD, IHDD, cholecystectomy Management: Strict ETOH avoidance Limit Tylenol > 2 gm daily if using Avoid hepatotoxins Low Na diet < 2 gm daily Daily weights (3) Anemia: Supervising Physician Co-Signing Physician Notes Late entry: Patient was seen and examine don 04/25 with J.Elba, PA-C whose note reflects our findings and plan. Patient with cirrhosis and similar presentation/hospitalization with anemia and melena in recent past without obvious source on bidirectional endoscoies. Admitted with HE/elevated ammonia/confusion as well as drop in H/H and melena. Agree with lactulose enemas, PPI and octreotide gtt. Will plan for possible repeat EGD Monday. Confused, restless. Abd without tense ascites. tachy. History of Present Illness History of Present Illness 78 y/o female pt with PMHx NAFLD cirrhosis with ascites on Lasix and Aldactone, G2 esophageal varices, portal HTN gastropathy on carvedilol and PPI well-known to [facility], h/o lung cancer, tobacco use, back pain, and others below brought in today by EMS. Family at bedside, they report they spoke to pt yesterday and she seemed at her mental status baseline; was not c/o melena, hematemesis, but was having some "stomach upset." She didn't answer her phone today and they went go check on her; she was found unresponsive with large melena around her and in the commode; EMS was called. On arrival to the ER, she was very confused, ? combative and required some sedation. HGB 9.7 (was 15 on 03/15, though baseline more around 10-12), plt 236, INR pending, BUN 80 (was 13 in 03/28), cr 1.22, ammonia 80, trop elevated at 0.2. BP 110-120's systolic, afebrile. CTAP with trace ascites, cirrhotic liver. CXR without acute findings. Dark black stool, heme + on rectal exam reported by ER physician. No BM, hematemesis since being in the ER. Pt currently resting with eyes closed, somewhat somnolent after Versed given; history obtained by family at bedside, staff and chart review. Currently IV PPI gtt, octreotide gtt running, and Rocephin given. No previous h/o HE. Last paracentesis 12/18/18 yielding 5 L, no SBP. Per PCP notes having ongoing LBP, given oxycodone PRN; was using Tylenol as well; unclear what dose. Previously admitted here in September under similar circumstances (had GIB w/ melena, anemia, also ascites), underwent EGD/colon demonstrating nonbleeding G2 esophageal varices, mild PHG, sigmoid tics, hemorrhoids. Was tx with full course of ABX in case of SBP. Per family, no ETOH, NSAID, AC use and she is compliant with her medical regimen. Allergies Allergy/AdvReac Type Severity Reaction Status Date / Time aspirin AdvReac Intermediate advised Verified 04/16/19 09:49 not to take d/t cirrhosis and gi bleed cortisone AdvReac Intermediate "WEIRD Verified 04/16/19 09:49 FEELING NSAIDS (Non-Steroidal AdvReac Intermediate advised Verified 04/16/19 09:49 Anti-Inflamma not to take d/t cirrhosis and gi bleed Home Medications Home Medications Medication Instructions Recorded Confirmed Type cholecalciferol (vitamin D3) 125 0 unit PO QAM #30 tab 08/17/18 04/25/19 History mcg (5,000 unit) tablet blood sugar diagnostic #50 ea 09/07/18 04/16/19 Rx polyethylene glycol 3350 17 0 g PO DAILY PRN 09/07/18 04/25/19 History gram/dose oral powder cyanocobalamin (vitamin B-12) 0 mcg PO QAM 09/17/18 04/25/19 History [Vitamin B-12] albuterol sulfate 0 mg INH Q4H PRN 01/02/19 04/25/19 History albuterol sulfate 90 mcg/actuation 0 inh INH DIRECTED PRN 01/03/19 04/25/19 History aerosol inhaler amlodipine [Norvasc] 5 mg PO QAM 02/04/19 04/25/19 History furosemide [Lasix] 20 mg PO QAM 02/04/19 04/25/19 History ondansetron 4 - 8 mg PO Q8 PRN 03/15/19 04/25/19 History amitriptyline 25 mg tablet 25 mg PO HS #30 tab 03/26/19 04/25/19 Rx carvedilol [Coreg] 25 mg PO BID 04/25/19 04/25/19 History diclofenac sodium [Voltaren] 1 % TOPICAL Q4H PRN 04/25/19 04/25/19 History ferrous sulfate [Iron (ferrous 325 mg PO BID 04/25/19 04/25/19 History sulfate)] levothyroxine [Synthroid] 125 mcg PO QAM 04/25/19 04/25/19 History meclizine [Dramamine Less Drowsy] 25 mg PO TID PRN 04/25/19 04/25/19 History methocarbamol 500 mg PO Q8H PRN 04/25/19 04/25/19 History metoclopramide HCl [Reglan] 5 mg PO BID PRN 04/25/19 04/25/19 History oxycodone [Roxicodone] 5 mg PO Q8H PRN 04/25/19 04/25/19 History pantoprazole [Protonix] 40 mg PO QAM 04/25/19 04/25/19 History pramipexole 0 mg PO QPM PRN 04/25/19 04/25/19 History prenat.vits,evelyn,wdv-[id number] 0 tab PO DAILY 04/25/19 04/25/19 History spironolactone [Aldactone] 25 mg PO BID 04/25/19 04/25/19 History Patient History Medical History Anemia Ascites usually happens q 6 weeks - follows with [facility] Asthma RARELY USES PRN INH Chronic back pain Chronic reflux esophagitis COPD (chronic obstructive pulmonary disease) Depression with anxiety Diabetes type 2, controlled Dyslipidemia Esophageal 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 ARAIZA; U/S EVERY 6 MONTHS for HCC SURVEILLANCE Microalbuminuria Osteoarthritis Spine and knee Osteoporosis Portal hypertension Restless legs syndrome Solitary pulmonary nodule PT REPORTS "SPOTS ON LUNGS" doenst follow with anyone Vitamin D deficiency Surgical History History of cholecystectomy History of colonoscopy W/ POLYPECTOMY History of esophagogastroduodenoscopy (EGD) History of hip surgery LT - HARDWARE PRESENT History of left cataract extraction History of right cataract surgery History of surgery on extremity RLE - HARDWARE PRESENT History of tonsillectomy History of tooth extraction History of total abdominal hysterectomy and bilateral salpingo-oophorectomy Secondary to fibroid History of tubal ligation Family History Mother Family history of diabetes mellitus Stroke Daughter Family history of diabetes mellitus Father Pneumonia Social History (Updated 04/25/19 @ 14:46 by Shannan Valles DO) Preferred Language: Irish Communication Ability: Impaired Ranch [employer] Required: No Beliefs That Will Affect Care: None marital status: Current Living Situation: Alone current occupational status: retired Feels Safe at Home: Yes Smoking Status: Current every day smoker Tobacco Type: cigarettes ; Age Started Using Tobacco: 16 ; packs per day: 1 ; Cigarettes Per Day: 20 ; Second Hand Exposure: No ; Hx Alcohol Use: No Hx Substance Use: No caffeine: Yes Dental Care, Regularly: Yes Physical Activity Frequency: Does not Exercise Seatbelt Use: always Review of Systems Review of Systems: Unobtainable, pt somewhat somnolent, recently given Versed Physical Exam Constitutional: well developed, + ill appearing and + obese Eyes: sclerae not anicteric Respiratory: normal respiratory effort, lungs clear to auscultation Cardiovascular: Rate/Rhythm: regular rate and regular rhythm Extremities: no edema Gastrointestinal (Abdomen): Inspection/Auscultation: abdomen normal to inspection and normal bowel sounds; abdomen not distended Percussion/Palpation: abdomen soft; abdomen nontender and no guarding no significant ascites, no spider angiomata, palmar erythema, caput medusa. External rectal exam reveals no active melena, hematochezia Musculoskeletal: Extremities: no cyanosis Skin: no rashes, warm and dry Neurologic: Pt somnolent but arouses to voice; doesn't answer questions Results & Data Vital Signs (Past 12 Hours) Vital Signs Temp Pulse Pulse Resp BP BP Pulse Ox 04/25/19 14:22 115 H 18 121/88 96 04/25/19 13:58 103 H 20 110/51 L 93 04/25/19 12:38 106 H 19 148/67 H 96 04/25/19 10:41 37.6 C H 116 H 20 126/74 95 Laboratory Results 04/25/19 04/25/19 04/25/19 Range/Units 12:25 12:23 12:11 WBC (4.8-10.8) K/uL RBC (4.2-5.4) M/uL Hgb (12.0-16.0) g/dL Hct (37-47) % MCV (80-100) fL MCH (25-34) pg MCHC (32-36) g/dL RDW Std Deviation (36.4-46.3) fL RDW Coeff of Mile (11.5-14.5) % Plt Count (130-400) K/uL MPV (7.4-10.4) fL Immature Gran % (Auto) % Neut % (Auto) % Lymph % (Auto) % [place] % (Auto) % Eos % (Auto) % Baso % (Auto) % Immature Gran # (Auto) (0.00-0.02) K/uL Neut # (Auto) (1.4-6.5) K/uL Lymph # (Auto) (1.2-3.4) K/uL [place] # (Auto) (0.11-0.59) K/uL Eos # (Auto) (0-0.5) K/uL Baso # (Auto) (0-0.2) K/uL Absolute Nucleated RBC (0-0) K/uL Nucleated RBC % (auto) % PT Pending INR Pending Sodium (136-145) mmol/L Potassium (3.5-5.1) mmol/L Chloride (98-107) mmol/L Carbon Dioxide (21-32) mmol/L Anion Gap (3-11) BUN (7-18) mg/dl Creatinine (0.6-1.2) mg/dl Est Cr Clr Drug Dosing ml/min Est GFR ( Amer) Est GFR (Non-Af Amer) BUN/Creatinine Ratio (10-20) Glucose (70-99) mg/dl POC Lactic Acid Cem 5.45 H (0.90-1.70) mmol/L Calcium (8.5-10.1) mg/dl Magnesium (1.8-2.4) mg/dl Total Bilirubin (0.2-1) mg/dl AST (15-37) U/L ALT (12-78) U/L Alkaline Phosphatase (45-117) U/L Ammonia 80.0 H (11-32) umol/L Troponin I (0-0.045) ng/ml NT-Pro-B Natriuret Pep (0-1800) pg/ml Total Protein (6.4-8.2) gm/dl Albumin (3.4-5.0) gm/dl Globulin (2.5-4.0) gm/dl Albumin/Globulin Ratio (0.9-2) Lipase (73-393) U/L Blood Type Antibody Screen 04/25/19 04/25/19 04/25/19 Range/Units 12:11 11:31 11:31 WBC 19.37 H (4.8-10.8) K/uL RBC 2.72 L (4.2-5.4) M/uL Hgb 9.7 L (12.0-16.0) g/dL Hct 29.4 L (37-47) % MCV 108.1 H (80-100) fL MCH 35.7 H (25-34) pg MCHC 33.0 (32-36) g/dL RDW Std Deviation 54.9 H (36.4-46.3) fL RDW Coeff of Mile 14.1 (11.5-14.5) % Plt Count 236 (130-400) K/uL MPV 10.4 (7.4-10.4) fL Immature Gran % (Auto) 0.6 % Neut % (Auto) 80.7 % Lymph % (Auto) 13.4 % [place] % (Auto) 5.2 % Eos % (Auto) 0.0 % Baso % (Auto) 0.1 % Immature Gran # (Auto) 0.11 H (0.00-0.02) K/uL Neut # (Auto) 15.66 H (1.4-6.5) K/uL Lymph # (Auto) 2.59 (1.2-3.4) K/uL [place] # (Auto) 1.00 H (0.11-0.59) K/uL Eos # (Auto) 0.00 (0-0.5) K/uL Baso # (Auto) 0.01 (0-0.2) K/uL Absolute Nucleated RBC 0.02 H (0-0) K/uL Nucleated RBC % (auto) 0.1 % PT INR Sodium 142 (136-145) mmol/L Potassium 4.8 (3.5-5.1) mmol/L Chloride 113 H (98-107) mmol/L Carbon Dioxide 21 (21-32) mmol/L Anion Gap 8.0 (3-11) BUN 81 H (7-18) mg/dl Creatinine 1.22 H (0.6-1.2) mg/dl Est Cr Clr Drug Dosing 48.4 ml/min Est GFR ( Amer) 49.8 Est GFR (Non-Af Amer) 43.0 BUN/Creatinine Ratio 66.6 H (10-20) Glucose 185 H (70-99) mg/dl POC Lactic Acid Cem (0.90-1.70) mmol/L Calcium 9.2 (8.5-10.1) mg/dl Magnesium 1.8 (1.8-2.4) mg/dl Total Bilirubin 0.5 (0.2-1) mg/dl AST 53 H (15-37) U/L ALT 44 (12-78) U/L Alkaline Phosphatase 54 (45-117) U/L Ammonia (11-32) umol/L Troponin I 0.201 H* (0-0.045) ng/ml NT-Pro-B Natriuret Pep 667 (0-1800) pg/ml Total Protein 6.6 (6.4-8.2) gm/dl Albumin 2.7 L (3.4-5.0) gm/dl Globulin 3.9 (2.5-4.0) gm/dl Albumin/Globulin Ratio 0.7 L (0.9-2) Lipase 61 L (73-393) U/L Blood Type A Positive Antibody Screen NEGATIVE Diagnostic Findings CT SCAN OF THE ABDOMEN AND PELVIS WITH IV CONTRAST CLINICAL HISTORY: GI bleeding. COMPARISON STUDY: Abdominal CT dated 09/17/2018. TECHNIQUE: Following the IV administration of 95 cc of Optiray 320, CT scan of the abdomen and pelvis is performed from the lung bases to the proximal femora. Images are reviewed in the axial, sagittal, and coronal planes. IV contrast was administered without complication. A dose lowering technique was utilized adhering to the principles of ALARA. The examination is suboptimal due to lack of patient cooperation and motion artifact. The lower chest was scanned twice as the patient moved during the examination. There is also streak artifact from the arms which could not be elevated above the abdomen. CT DOSE: 2185.01 mGy.cm FINDINGS: Lung bases: The heart is normal in size and without pericardial effusion. The coronary arteries are densely calcified. The lung bases are clear. There is a small hiatal hernia. Esophageal varices are noted. Liver: The contrast-enhanced liver is struck in morphology and heterogeneous in attenuation. There is hypertrophy of the left lobe and nodularity of the surface contour.. There is mild central intrahepatic biliary ductal dilatation. The hepatic veins and portal veins are patent. Gallbladder: Surgically absent. There is unchanged dilatation of the common bile duct. Spleen: Normal in size and attenuation. Pancreas: Atrophic and grossly unremarkable. Adrenal glands: Unremarkable. Kidneys: The contrast enhanced kidneys demonstrate cortical atrophy and are without hydronephrosis. The kidneys enhance symmetrically. There is a retroaortic left renal vein. Abdominal vasculature: The abdominal aorta is normal in course and caliber. Bowel: No bowel obstruction is seen. Question underdistention versus mild wall thickening of the colon. There is wall thickening of the right colon which likely represents portal colopathy. There is mild to moderate colonic diverticulosis without CT evidence of acute diverticulitis. The appendix is well-visualized and normal. Peritoneum: There is no intraperitoneal free air. Trace perihepatic ascites is noted. There is laxity of the ventral pelvic wall with protrusion of pelvic contents. Lymphadenopathy: None. Pelvic viscera: The bladder is markedly distended but otherwise normal in appearance. The uterus is surgically absent. No adnexal lesion is seen. Skeletal structures: The skeletal structures are osteopenic. There are numerous chronic thoracolumbar compression deformities. No lytic or blastic lesions are seen. There is chronic posttraumatic deformity and postoperative change noted in the left hip. IMPRESSION: 1. Streak and motion compromised examination. 2. The liver is cirrhotic in morphology and heterogeneous in attenuation. 3. Small hiatal hernia and esophageal varices. 4. Question underdistention versus mild wall thickening of the colon. Correlate clinically for evidence of a mild colitis. Portal colopathy is suggested in the right colon. 5. Trace perihepatic ascites. 6. Marked bladder distention. 7. Additional findings as above. XR chest 1V portable CLINICAL HISTORY: ams, gi bleed dyspnea COMPARISON STUDY: 03/15/2018 FINDINGS: Stable component of emphysematous and interstitial change. Mild stable cardiac enlargement. Diaphragms are smooth. IMPRESSION: Chronic emphysematous and interstitial change. (1) Anemia Anemia type: unspecified type Qualified Code(s): D64.9 - Anemia, unspecified
[2019-04-25 14:46] LABS: INR 1.2 (0.9-1.1); Prothrombin Time 12.1 Seconds (9.0-12.0)
--- NOTE | 2019-04-25 14:48 | History & Physical Report ---
Date of Service April 25, 2019 Assessment & Plan (1) GI (gastrointestinal bleed): Hx of same last year with question of varices GI planning for lactulose and monitoring for now Follows with Dr. Lehman Hb 9.7 on admission, monitor (2) AMS (altered mental status): Likely related to elevated ammonia levels No hx of prior per family lactulose and monitor Pt does take oxycodone PRN, t/c narcan if no improvement s/p bowel movements with lactulose (3) Elevated troponin: 0.20 on admission ECHO 04/18/19 was WNL Serials pending EKG neg for acute (4) Hypertension: Holding home meds (5) Hypothyroidism: Convert to IV (6) Diabetes type 2, controlled: SSI PRN A1c pending (7) Depression with anxiety: Holding home meds (8) COPD (chronic obstructive pulmonary disease): continue home meds (9) Restless legs syndrome: Holding home meds (10) Dyslipidemia: Holding home meds (11) DVT prophylaxis: SCDs given GIB (12) Tobacco use disorder: 1ppd per family nicotine patch if withdrawal sx History of Present Illness Primary Care Provider: Courtney Jules DO 78 y/o F who was brought in by family after being found with AMS. Daughter states that pt called her yesterday asking her to bring some daron ct as she was having an "upset stomach". Upon arrival to the home, pt was noted to be pale and sweaty. Daughter wanted pt to come to the ED yesterday, but she refused at that time. Daughter called this AM to check on pt, but phone went unanswered. Due to this, daughter went to pt's home and found pt lying across her bed with dark black stool on her and around the bathroom. Pt was not responsive to them and EMS was called. Pt was combative with EMS and ativan was given en route. Family states that pt had an episode of black stools last year, but it was nothing like this and there was no AMS involved. 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 They have never heard about elevated ammonia levels or lactulose use. They state pt has had no other recent concerns until yesterday. Pt cannot answer questions at this time for further hx. Allergies Allergy/AdvReac Type Severity Reaction Status Date / Time aspirin AdvReac Intermediate advised Verified 04/16/19 09:49 not to take d/t cirrhosis and gi bleed cortisone AdvReac Intermediate "WEIRD Verified 04/16/19 09:49 FEELING NSAIDS (Non-Steroidal AdvReac Intermediate advised Verified 04/16/19 09:49 Anti-Inflamma not to take d/t cirrhosis and gi bleed Home Medications Home Medications Medication Instructions Recorded Confirmed Type cholecalciferol (vitamin D3) 125 0 unit PO QAM #30 tab 08/17/18 04/25/19 History mcg (5,000 unit) tablet blood sugar diagnostic #50 ea 09/07/18 04/16/19 Rx polyethylene glycol 3350 17 0 g PO DAILY PRN 09/07/18 04/25/19 History gram/dose oral powder cyanocobalamin (vitamin B-12) 0 mcg PO QAM 09/17/18 04/25/19 History [Vitamin B-12] albuterol sulfate 0 mg INH Q4H PRN 01/02/19 04/25/19 History albuterol sulfate 90 mcg/actuation 0 inh INH DIRECTED PRN 01/03/19 04/25/19 History aerosol inhaler amlodipine [Norvasc] 5 mg PO QAM 02/04/19 04/25/19 History furosemide [Lasix] 20 mg PO QAM 02/04/19 04/25/19 History ondansetron 4 - 8 mg PO Q8 PRN 03/15/19 04/25/19 History amitriptyline 25 mg tablet 25 mg PO HS #30 tab 03/26/19 04/25/19 Rx carvedilol [Coreg] 25 mg PO BID 04/25/19 04/25/19 History diclofenac sodium [Voltaren] 1 % TOPICAL Q4H PRN 04/25/19 04/25/19 History ferrous sulfate [Iron (ferrous 325 mg PO BID 04/25/19 04/25/19 History sulfate)] levothyroxine [Synthroid] 125 mcg PO QAM 04/25/19 04/25/19 History meclizine [Dramamine Less Drowsy] 25 mg PO TID PRN 04/25/19 04/25/19 History methocarbamol 500 mg PO Q8H PRN 04/25/19 04/25/19 History metoclopramide HCl [Reglan] 5 mg PO BID PRN 04/25/19 04/25/19 History oxycodone [Roxicodone] 5 mg PO Q8H PRN 04/25/19 04/25/19 History pantoprazole [Protonix] 40 mg PO QAM 04/25/19 04/25/19 History pramipexole 0 mg PO QPM PRN 04/25/19 04/25/19 History prenat.vits,evelyn,voi-eyyc-swkfz 0 tab PO DAILY 04/25/19 04/25/19 History spironolactone [Aldactone] 25 mg PO BID 04/25/19 04/25/19 History Past Med/Surg History Medical History Anemia Ascites usually happens q 6 weeks - follows with [facility] Asthma RARELY USES PRN INH Chronic back pain Chronic reflux esophagitis COPD (chronic obstructive pulmonary disease) Depression with anxiety Diabetes type 2, controlled Dyslipidemia Esophageal 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 LEHMAN; U/S EVERY 6 MONTHS for HCC SURVEILLANCE Microalbuminuria Osteoarthritis Spine and knee Osteoporosis Portal hypertension Restless legs syndrome Solitary pulmonary nodule PT REPORTS "SPOTS ON LUNGS" doenst follow with anyone Vitamin D deficiency Surgical History History of cholecystectomy History of colonoscopy W/ POLYPECTOMY History of esophagogastroduodenoscopy (EGD) History of hip surgery LT - HARDWARE PRESENT History of left cataract extraction History of right cataract surgery History of surgery on extremity RLE - HARDWARE PRESENT History of tonsillectomy History of tooth extraction History of total abdominal hysterectomy and bilateral salpingo-oophorectomy Secondary to fibroid History of tubal ligation Family History Mother Family history of diabetes mellitus Stroke Daughter Family history of diabetes mellitus Father Pneumonia Social History (Updated 04/25/19 @ 14:46 by Shannan Valles DO) Preferred Language: Hebrew Communication Ability: Effective Market Editor Required: No Beliefs That Will Affect Care: None marital status: Current Living Situation: Alone current occupational status: retired Feels Safe at Home: Yes Smoking Status: Current every day smoker Tobacco Type: cigarettes ; Age Started Using Tobacco: 16 ; packs per day: 1 ; Cigarettes Per Day: 1 ppd ; Second Hand Exposure: No ; Hx Alcohol Use: No Hx Substance Use: No caffeine: Yes Dental Care, Regularly: Yes Physical Activity Frequency: Does not Exercise Seatbelt Use: always Review of Systems Review of Systems: ROS as per family, unable to obtain full ROS due to pt's current mentation Physical Exam Constitutional: WD/WN, vitals as above Eyes: normal visual arellano by confrontation and + anicteric sclerae Neck: normal visual inspection and trachea midline Respiratory: normal respiratory effort, lungs clear to auscultation Cardiovascular: Rate/Rhythm: regular rate and regular rhythm Gastrointestinal (Abdomen): Inspection/Auscultation: abdomen not distended Percussion/Palpation: + abdomen tender and abdomen soft Musculoskeletal: Head/Neck/Chest: normocephalic and head atraumatic negative for edema, peripheral pulses intact Skin: no rashes, warm and dry Neurologic: awake and + confused Psychiatric: opens eyes to voice but does not answer questions Results & Data Vital Signs (Past 12 Hours) Vital Signs Temp Pulse Pulse Resp BP BP Pulse Ox 04/25/19 14:22 115 H 18 121/88 96 04/25/19 13:58 103 H 20 110/51 L 93 04/25/19 12:38 106 H 19 148/67 H 96 04/25/19 10:41 37.6 C H 116 H 20 126/74 95 Diagnostic Findings CXR: neg for acute CTAP: 1. Streak and motion compromised examination. 2. The liver is cirrhotic in morphology and heterogeneous in attenuation. 3. Small hiatal hernia and esophageal varices. 4. Question underdistention versus mild wall thickening of the colon. Correlate clinically for evidence of a mild colitis. Portal colopathy is suggested in the right colon. 5. Trace perihepatic ascites. 6. Marked bladder distention. Code Status & VTE Plan Code Status Full code per family, pt not able to participate in conversation VTE Prophylaxis Plan VTE Prophylaxis will be ordered: Yes PG Care Time/CCT Total # of Minutes Spent Total Time Spent with Patient: Total time spent is greater than 50% in coordination of care (as documented) at patient's floor/unit and/or counseling patient: (1) GI (gastrointestinal bleed) GI bleed type/associated pathology: unspecified gastrointestinal hemorrhage type Qualified Code(s): K92.2 - Gastrointestinal hemorrhage, unspecified (2) AMS (altered mental status) Altered mental status type: unspecified Qualified Code(s): R41.82 - Altered mental status, unspecified
[2019-04-25] MEDS ORDERED: ICU PROTOCOL FOR HYPERGLYCEMIA PRN (15:00)
[2019-04-25] MEDS ORDERED: ALBUTEROL 0.083% NEBU SOLN 3 ML VIAL INH PRN (15:00)
[2019-04-25] MEDS ORDERED: DEXTROSE 50% 50 ML SYRINGE IV PRN (15:00)
[2019-04-25] MEDS ORDERED: ALBUTEROL HFA 8 GM INHALER INH PRN (15:00)
[2019-04-25] MEDS ORDERED: CARBOHYDRATES FOR HYPOGLYCEMIA PO PRN (15:00)
[2019-04-25] MEDS ORDERED: GLUCAGON FOR INJ 1 MG VIAL SQ PRN (15:00)
[2019-04-25] MEDS ORDERED: GLUCOSE 40% GEL 15 GM TUBE PO PRN (15:00)
[2019-04-25] MEDS ORDERED: GLUCOSE 10 TABS/TUBE PO PRN (15:00)
[2019-04-25] MEDS ORDERED: Nursing to Pharmacy Communication ONE (15:09)
--- NOTE | 2019-04-25 15:56 | Critical Care Consultation ---
Date of Consultation April 25, 2019 Assessment & Plan (1) Encephalopathy, hepatic: Reason Critically Ill: 78-year-old female with Jones cirrhosis and known esophageal varices presents with GI bleed and acute encephalopathy Neuro - Encephalopathy-patient presents with acute altered mental status most likely secondary to hepatic encephalopathy versus uremia -Also consider possibility for metabolic encephalopathy related to infectious process, see ID -Ammonia 80 on admission, BUN 81 -Patient continues to remove medical equipment and does not cooperate while obtaining imaging, given IV ketamine per Dr. Salvador -Given 2 mg IV Ativan per EMS prior to hospital arrival, UDS only positive for benzo, will avoid further benzo administration given cirrhosis -Attempting to minimize stimuli -No fevers or headache and recent history per family -CT negative for acute process, limited by poor image quality -We will continue to rectal lactulose treatment -Fall precautions per nursing protocol Cardiac - Elevated troponintroponin mildly elevated on admission, may be related to SEN -No ST elevation on EKG -Patient would not be a candidate for heparin infusion given GI bleed/varices -Troponin now down trended HTNwe will hold oral meds for now as patient is altered mental status and n.p.o., may transition to IV as needed Respiratory - COPDpatient has history of smoking, prescription for albuterol inhaler as needed, reportedly rarely uses -Lungs clear to auscultation on exam -CXR showed stable emphysema and stable lung nodule -We will continue PRN neb -Monitor continuous pulse ox -Currently maintaining sats on room air without issue GI - GI bleed/esophageal varices /Jones cirrhosis/elevated ammonia -Patient reportedly had black tarry stools at home, positive Hemoccult in ED, anemia with hemoglobin 9.2 on admission -History Jones cirrhosis and known esophageal varices, also history of GI bleed -Patient on Protonix and octreotide drips, trending hemoglobin and transfuse for less than 7.0 -GI plans to perform EGD -CT abdomen shows small esophageal varices, cirrhotic liver, evidence of mild colitis and portal colopathy in right colon, trace ascites -Portal ultrasound: Hepatic and portal veins appear patent -AST mildly elevated but LFTs mostly unremarkable with normal bili, INR 1.2 -Ammonia elevated at 80, no prior history of elevated ammonia level, patient not on lactulose for home med -Acetaminophen negative -We will trend LFTs, monitor for worsening liver function -Continue lactulose enema, rifaximin when able to take p.o. -GI consulted, follow-up recommendations RENAL/LYTES - AKIcreatinine mildly elevated at 1.2 with baseline of 0.7 on prior admissions -Is likely related to dehydration given history of past 2 days -Patient has remained normotensive on admission -We will continue IV fluid resuscitation -We will trend creatinine, expect to improve -Avoiding nephrotoxins -Strict I's and O's - Foleystrict I's and O's ENDO - History of DM type II questionable as patient is not on diabetic medications and hemoglobin A1c within normal limits on prior admissions -ICU hyperglycemic protocol Hypothyroidismcontinue Synthroid HEME - Acute blood loss anemia secondary to GI bleed, trending H&H, will transfuse for hemoglobin less than 7.0 -see GI bleed for details ID - Patient presents with leukocytosis and elevated lactate, cannot rule out infectious process at this time CXR negative for pulmonary infiltrates UA pending, blood cultures pending Received ceftriaxone for SBP coverage, broadened to Zosyn at this time, abdominal exam benign LINES/IV ACCESS - Peripheral IVs DVT PROPHYLAXIS - SCDs, no anticoagulation at this time as patient has GI bleed I have personally spent 40 minutes of critical care time in the direct management of this patient. This is a life/limb threatening event. This includes time spent evaluating patient, direct bedside care, chart review, placing orders, interpretation of diagnostic studies, discussion with consultants, patient, and family members, as well as other required patient management activities. This time is exclusive of all separately billable procedures, and teaching time and separate from and in addition to any other critical care service time. Thank you for allowing us to participate in the care of this patient. Please refer to my attending physician's documentation for any further recommendations. 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 I agree with assessment and plan of Divina MCCAIN. Patient required 5 mg aliquots of ketamine to achieve mild sedation. I discussed with the family risks and benefits of intubation and placement of NG tube to facilitate lactulose administration versus continued chemical restraints. All are in agreement to avoid intubation is optimal. We will continue to try to redirect the patient and facilitate lactulose enema to decrease her ammonia level. History of Present Illness Attending Physician: Shannan Valles DO History of Present Illness Mrs. Saleh is a 78 yof w/ PMH of COPD, Gerd, GI bleed, ascites, esophageal varices, JONES cirrhosis who presented to the ED after family found the patient to be AMS with dark black stool this AM. The daughter reported that the patient had been having an "upset stomach" since yesterday ad was pale and sweaty but had refused to come to the hospital. On arrival to the ED, she was found to have ammonia of 80. She has no history of elevated ammonia and is not on lactulose. She follows with Dr. Lehman in clinic. She was also found to have a positive stool hemmocult and hgb of 9.7 with usual baseline of 12. She was started on ocreotide and protonix drips and given rectal lactulose. Patient was transferred to ICU and found to be significantly agitated and confused. She continues to remove medical equipment and has required multiple doses of ketamine per Dr. Salvador in order to provide treatment. CT showed small esophageal varices, mild colitis, portal colopathy of right colon. Patient is to undergo EGD per GI. Will remain in ICU for further management at this time. Allergies Allergy/AdvReac Type Severity Reaction Status Date / Time aspirin AdvReac Intermediate advised Verified 04/16/19 09:49 not to take d/t cirrhosis and gi bleed cortisone AdvReac Intermediate "WEIRD Verified 04/16/19 09:49 FEELING NSAIDS (Non-Steroidal AdvReac Intermediate advised Verified 04/16/19 09:49 Anti-Inflamma not to take d/t cirrhosis and gi bleed Home Medications Home Medications Medication Instructions Recorded Confirmed Type cholecalciferol (vitamin D3) 125 0 unit PO QAM #30 tab 08/17/18 04/25/19 History mcg (5,000 unit) tablet blood sugar diagnostic #50 ea 09/07/18 04/16/19 Rx polyethylene glycol 3350 17 0 g PO DAILY PRN gm 09/07/18 04/25/19 History gram/dose oral powder cyanocobalamin (vitamin B-12) 0 mcg PO QAM 09/17/18 04/25/19 History [Vitamin B-12] albuterol sulfate 0 mg INH Q4H PRN 01/02/19 04/25/19 History albuterol sulfate 90 mcg/actuation 0 inh INH DIRECTED PRN gm 01/03/19 04/25/19 History aerosol inhaler amlodipine [Norvasc] 5 mg PO QAM 02/04/19 04/25/19 History furosemide [Lasix] 20 mg PO QAM 02/04/19 04/25/19 History ondansetron 4 - 8 mg PO Q8 PRN 03/15/19 04/25/19 History amitriptyline 25 mg tablet 25 mg PO HS #30 tab 03/26/19 04/25/19 Rx carvedilol [Coreg] 25 mg PO BID 04/25/19 04/25/19 History diclofenac sodium [Voltaren] 1 % TOPICAL Q4H PRN 04/25/19 04/25/19 History ferrous sulfate [Iron (ferrous 325 mg PO BID 04/25/19 04/25/19 History sulfate)] levothyroxine [Synthroid] 125 mcg PO QAM 04/25/19 04/25/19 History meclizine [Dramamine Less Drowsy] 25 mg PO TID PRN 04/25/19 04/25/19 History methocarbamol 500 mg PO Q8H PRN 04/25/19 04/25/19 History metoclopramide HCl [Reglan] 5 mg PO BID PRN 04/25/19 04/25/19 History oxycodone [Roxicodone] 5 mg PO Q8H PRN 04/25/19 04/25/19 History pantoprazole [Protonix] 40 mg PO QAM 04/25/19 04/25/19 History pramipexole 0 mg PO QPM PRN 04/25/19 04/25/19 History prenat.vits,evelyn,cpt-pkld-tteug 0 tab PO DAILY 04/25/19 04/25/19 History spironolactone [Aldactone] 25 mg PO BID 04/25/19 04/25/19 History Patient History Medical History (Updated 04/26/19 @ 18:25 by Seda Nixon DO) Anemia Ascites usually happens q 6 weeks - follows with [facility] Asthma RARELY USES PRN INH Chronic back pain Chronic reflux esophagitis COPD (chronic obstructive pulmonary disease) Depression with anxiety Diabetes type 2, controlled Dyslipidemia Esophageal varices in cirrhosis (Acute) GERD (gastroesophageal reflux disease) GI bleed (Resolved) HX Goals of care, counseling/discussion Hypertension Hypothyroidism Irritable bowel syndrome 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 (Acute) FOLLOWS W/ DR. LEHMAN; U/S EVERY 6 MONTHS for HCC SURVEILLANCE Microalbuminuria Osteoarthritis Spine and knee Osteoporosis Portal hypertension Restless legs syndrome Solitary pulmonary nodule PT REPORTS "SPOTS ON LUNGS" doenst follow with anyone Vitamin D deficiency Surgical History History of cholecystectomy History of colonoscopy W/ POLYPECTOMY History of esophagogastroduodenoscopy (EGD) History of hip surgery LT - [facility] PRESENT History of left cataract extraction History of right cataract surgery History of surgery on extremity RLE - [place] PRESENT History of tonsillectomy History of tooth extraction History of total abdominal hysterectomy and bilateral salpingo-oophorectomy Secondary to fibroid History of tubal ligation Family History Mother Family history of diabetes mellitus Stroke Daughter Family history of diabetes mellitus Father Pneumonia Social History (Updated 04/25/19 @ 14:46 by Shannan Valles DO) Preferred Language: Cypriot Communication Ability: Impaired Dial Brusher Required: No Beliefs That Will Affect Care: None marital status: Current Living Situation: Alone current occupational status: retired Feels Safe at Home: Yes Smoking Status: Current every day smoker Tobacco Type: cigarettes ; Age Started Using Tobacco: 16 ; packs per day: 1 ; Cigarettes Per Day: 20 ; Second Hand Exposure: No ; Hx Alcohol Use: No Hx Substance Use: No caffeine: Yes Dental Care, Regularly: Yes Physical Activity Frequency: Does not Exercise Seatbelt Use: always Review of Systems Review of Systems: Unobtainable due to cognitive status Physical Exam Constitutional: + uncooperative and + uncomfortable Eyes: PERRL, conjunctivae normal, anicteric sclerae ENMT: external ear and nose normal, oropharynx normal Neck: trachea midline, no thyromegaly Respiratory: normal respiratory effort, lungs clear to auscultation Cardiovascular: RRR, no murmur, no edema Heart Sounds: normal S1 and normal S2 Vessels: no JVD Extremities: normal capillary refill Gastrointestinal (Abdomen): Abdomen soft, nontender, bowel sounds auscultated all 4 quadrants Skin: no rashes, warm and dry Neurologic: Patient agitated, confused, moves extremities equally, PERRLA, no facial droop, no dysarthria Psychiatric: Orientation: oriented to person; + not oriented to place, + not oriented to time and + uncooperative Genitourinary: Indwelling Angel Results & Data Vital Signs (Past 12 Hours) Vital Signs Temp Pulse Pulse Resp BP BP Pulse Ox 04/25/19 14:22 115 H 18 121/88 96 04/25/19 13:58 103 H 20 110/51 L 93 04/25/19 12:38 106 H 19 148/67 H 96 04/25/19 10:41 37.6 C H 116 H 20 126/74 95 Laboratory Results Home Medications cholecalciferol (vitamin D3) 125 mcg (5,000 unit) tablet 0 unit PO QAM #30 tab 08/17/18 [History Confirmed 04/25/19] blood sugar diagnostic #50 ea 09/07/18 [Rx Confirmed 04/16/19] polyethylene glycol 3350 17 gram/dose oral powder 0 g PO DAILY PRN gm 09/07/18 [History Confirmed 04/25/19] cyanocobalamin (vitamin B-12) [Vitamin B-12] 0 mcg PO QAM 09/17/18 [History Confirmed 04/25/19] albuterol sulfate 0 mg INH Q4H PRN 01/02/19 [History Confirmed 04/25/19] albuterol sulfate 90 mcg/actuation aerosol inhaler 0 inh INH DIRECTED PRN gm 01/03/19 [History Confirmed 04/25/19] amlodipine [Norvasc] 5 mg PO QAM 02/04/19 [History Confirmed 04/25/19] furosemide [Lasix] 20 mg PO QAM 02/04/19 [History Confirmed 04/25/19] ondansetron 4 - 8 mg PO Q8 PRN 03/15/19 [History Confirmed 04/25/19] amitriptyline 25 mg tablet 25 mg PO HS #30 tab 03/26/19 [Rx Confirmed 04/25/19] carvedilol [Coreg] 25 mg PO BID 04/25/19 [History Confirmed 04/25/19] diclofenac sodium [Voltaren] 1 % TOPICAL Q4H PRN 04/25/19 [History Confirmed 04/25/19] ferrous sulfate [Iron (ferrous sulfate)] 325 mg PO BID 04/25/19 [History Confirmed 04/25/19] levothyroxine [Synthroid] 125 mcg PO QAM 04/25/19 [History Confirmed 04/25/19] meclizine [Dramamine Less Drowsy] 25 mg PO TID PRN 04/25/19 [History Confirmed 04/25/19] methocarbamol 500 mg PO Q8H PRN 04/25/19 [History Confirmed 04/25/19] metoclopramide HCl [Reglan] 5 mg PO BID PRN 04/25/19 [History Confirmed 04/25/19] oxycodone [Roxicodone] 5 mg PO Q8H PRN 04/25/19 [History Confirmed 04/25/19] pantoprazole [Protonix] 40 mg PO QAM 04/25/19 [History Confirmed 04/25/19] pramipexole 0 mg PO QPM PRN 04/25/19 [History Confirmed 04/25/19] prenat.vits,evelyn,wel-wvur-jdayg 0 tab PO DAILY 04/25/19 [History Confirmed 04/25/19] spironolactone [Aldactone] 25 mg PO BID 04/25/19 [History Confirmed 04/25/19] Active Medications Albuterol (Ventolin 0.083% 2.5mg/3ml) 2.5 mg INH Q4R PRN PRN Reason: shortness of breath or wheezing Stop: 05/25/19 14:59 Albuterol (Ventolin Hfa) 1 puffs INH Q4H PRN PRN Reason: shortness of breath or wheezin Stop: 05/25/19 14:59 Amitriptyline HCl (Elavil) 25 mg PO HS MONIQUE Stop: 05/25/19 20:59 Last Admin: 04/25/19 21:17 Dose: Not Given Documented by: Dextrose (Dextrose 50%) 25 - 50 ml IV UD PRN; Protocol PRN Reason: Hypoglycemia Protocol Stop: 05/25/19 14:59 Glucagon (Glucagen) 1 mg SQ UD PRN; Protocol PRN Reason: Hypoglycemia Protocol Stop: 05/25/19 14:59 Glucose (Dex4 Glucose) 4 - 8 tabs PO UD PRN; Protocol PRN Reason: Hypoglycemia Protocol Stop: 05/25/19 14:59 Glucose (Glucose 40%) 15 - 30 gm PO UD PRN; Protocol PRN Reason: Hypoglycemia Protocol Stop: 05/25/19 14:59 Sodium Chloride (Nss 1000ml) 1,000 mls @ 200 mls/hr IV .Q5H MONIQUE Stop: 05/25/19 10:59 Last Admin: 04/25/19 23:03 Dose: 200 mls/hr Documented by: Pantoprazole Sodium 40 mg/ (Dextrose) 100 mls @ 20 mls/hr IV Q5H MONIQUE Stop: 05/25/19 11:14 Last Admin: 04/25/19 23:05 Dose: 20 mls/hr Documented by: Octreotide Acetate 500 mcg/ (Sodium Chloride) 105 mls @ 10.5 mls/hr IV .Q10H MONIQUE Stop: 05/25/19 11:29 Last Admin: 04/25/19 21:25 Dose: 50 mcg/hr, 10.5 mls/hr Documented by: Levothyroxine Sodium 62.5 mcg/ (Syringe) 3.125 mls @ 2 mls/min IV DAILY@0900 MONIQUE Stop: 05/26/19 08:59 Piperacillin Sod/Tazobactam (Sod 4.5 gm/ Dextrose) 120 mls @ 28.75 mls/hr IV Q8H MONIQUE; Protocol Stop: 04/28/19 05:59 Piperacillin Sod/Tazobactam (Sod 4.5 gm/ Dextrose) 120 mls @ 240 mls/hr IV ONE ONE; Protocol Stop: 04/26/19 01:59 Last Admin: 04/26/19 01:47 Dose: 240 mls/hr Documented by: Insulin Aspart (Novolog Flexpen) 0 units SC Q6 MONIQUE Stop: 05/25/19 16:29 Last Admin: 04/26/19 00:06 Dose: 3 units Documented by: Ioversol (Optiray 320 100ml) 95 ml IV ONCE PRN PRN Reason: Interaction Checking Stop: 04/29/19 13:32 Last Admin: 04/25/19 13:34 Dose: 95 ml Documented by: Miscellaneous (Icu Protocol For Hyperglycemia) 1 ea N/A PRN PRN; Protocol PRN Reason: Hyperglycemia Protocol Stop: 04/27/19 14:59 Miscellaneous (Carbohydrates For Hypoglycemia) 15 - 30 gm PO UD PRN PRN Reason: Hypoglycemia Protocol Stop: 05/25/19 14:59 Miscellaneous Information (Consult) 1 ea N/A UD PRN PRN Reason: Consult Stop: 05/26/19 01:16 Coding Level of Care Code Critical Care 1st 30-74 mins Diagnoses Encephalopathy, hepatic K72.90 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 K75.81; K74.60 Elevated troponin R79.89 GI (gastrointestinal bleed) K92.2 GI bleed type/associated pathology: unspecified gastrointestinal hemorrhage type Ascites R18.8 Ascites type: other type COPD (chronic obstructive pulmonary disease) J44.9 Diabetes type 2, controlled E11.9 Esophageal varices in cirrhosis K74.60; I85.10 Irritable bowel syndrome K58.9 (1) GI (gastrointestinal bleed) GI bleed type/associated pathology: unspecified gastrointestinal hemorrhage type Qualified Code(s): K92.2 - Gastrointestinal hemorrhage, unspecified (2) Ascites Ascites type: other type Qualified Code(s): R18.8 - Other ascites
[2019-04-25] MEDS ORDERED: INSULIN ASPART 100 UNITS/ML 3 ML PEN SC SCH (16:30)
[2019-04-25 17:30] LABS: Hematocrit (blood only) 27.6 % (37-47)
--- NOTE | 2019-04-25 17:40 | Electrocardiogram Report ---
Test Reason : Blood Pressure : / mmHG Vent. Rate : 120 BPM Atrial Rate : 120 BPM P-R Int : 146 ms QRS Dur : 082 ms QT Int : 344 ms P-R-T Axes : 118 137 067 degrees QTc Int : 486 ms Poor data quality, interpretation may be adversely affected Suspect arm lead reversal, interpretation assumes no reversal Sinus tachycardia Right axis deviation Abnormal ECG When compared with ECG of 15-MAR-2019 12:39, QRS axis Shifted right Criteria for Anterior infarct are no longer Present Criteria for Inferior infarct are no longer Present Nonspecific T wave abnormality, worse in Inferior leads Confirmed by Toni Domínguez ([id number]) on 04/25/2019 5:39:46 PM Referred By: REFERRED SELF Confirmed By:Toni Domínguez
--- NOTE | 2019-04-25 17:55 | Emergency Department Note ---
Entered by Giancarlo Lawrence acting as a scribe for History of Present Illness General Chief complaint: Illness Time Seen by Provider: 04/25/19 10:32 Source: patient, family (daughter) and EMS Limitations: no limitations History of Present Illness Onset (ago): day(s) (last night) Location: abdomen Severity: similar to prior episodes Pain Consistency: + constant Quality: + other (agitated) Associated symptoms: + denies other symptoms (recent trauma), + weakness and + other (fecal incontinence, dark red stools, pale, tired, ) Treatments prior to arrival: other (ativan) The patient is a 78 year old female who presents to the Emergency Room with complaints of a constant and worsening illness starting last night. The patient's daughter states she saw the patient last night and the patient was complaining of feeling ill. The daughter states the patient felt clammy and cool. The daughter notes the patient's head was soaked and the patient looked pale. The daughter notes she went to check on the patient this morning. The daughter states she saw a lot of blood in the toilet. She states the blood was red and black and notes it looked like tar. The daughter states the patient has been feeling more tired and weak recently. The daughter notes the patient has acted like this previously when she had a GI bleed about a year ago. EMS states the patient had dark red fecal incontinence. EMS states the patient's pulse oxygen was 96. EMS states the patient was very combative and was screaming. EMS notes the patient was not able to form words but states she had very strong motor functions. EMS notes the patient's blood sugar was 212. EMS states they gave the patient 2mg IM Ativan and the patient received 600 cc of fluid. The daughter notes the patient has non-alcoholic cirrhosis and has some fluid retention occasionally. The daughter states the patient has never been altered or confused from fluid build-up. The daughter denies the patient having recent trauma, history of stroke, and a history of heart attacks. Patient she does not take any blood thinners. HPI limited due to patient's altered mental status. EMS and family provide HPI. Home Medications Home Medications Medication Instructions Recorded Confirmed Type cholecalciferol (vitamin D3) 125 0 unit PO QAM #30 tab 08/17/18 04/25/19 History mcg (5,000 unit) tablet blood sugar diagnostic #50 ea 09/07/18 04/16/19 Rx polyethylene glycol 3350 17 0 g PO DAILY PRN 09/07/18 04/25/19 History gram/dose oral powder cyanocobalamin (vitamin B-12) 0 mcg PO QAM 09/17/18 04/25/19 History [Vitamin B-12] albuterol sulfate 0 mg INH Q4H PRN 01/02/19 04/25/19 History albuterol sulfate 90 mcg/actuation 0 inh INH DIRECTED PRN 01/03/19 04/25/19 History aerosol inhaler amlodipine [Norvasc] 5 mg PO QAM 02/04/19 04/25/19 History furosemide [Lasix] 20 mg PO QAM 02/04/19 04/25/19 History ondansetron 4 - 8 mg PO Q8 PRN 03/15/19 04/25/19 History amitriptyline 25 mg tablet 25 mg PO HS #30 tab 03/26/19 04/25/19 Rx carvedilol [Coreg] 25 mg PO BID 04/25/19 04/25/19 History diclofenac sodium [Voltaren] 1 % TOPICAL Q4H PRN 04/25/19 04/25/19 History ferrous sulfate [Iron (ferrous 325 mg PO BID 04/25/19 04/25/19 History sulfate)] levothyroxine [Synthroid] 125 mcg PO QAM 04/25/19 04/25/19 History meclizine [Dramamine Less Drowsy] 25 mg PO TID PRN 04/25/19 04/25/19 History methocarbamol 500 mg PO Q8H PRN 04/25/19 04/25/19 History metoclopramide HCl [Reglan] 5 mg PO BID PRN 04/25/19 04/25/19 History oxycodone [Roxicodone] 5 mg PO Q8H PRN 04/25/19 04/25/19 History pantoprazole [Protonix] 40 mg PO QAM 04/25/19 04/25/19 History pramipexole 0 mg PO QPM PRN 04/25/19 04/25/19 History prenat.vits,evelyn,awx-tzqx-mbcrn 0 tab PO DAILY 04/25/19 04/25/19 History spironolactone [Aldactone] 25 mg PO BID 04/25/19 04/25/19 History Allergies Allergy/AdvReac Type Severity Reaction Status Date / Time aspirin AdvReac Intermediate advised Verified 04/16/19 09:49 not to take d/t cirrhosis and gi bleed cortisone AdvReac Intermediate "WEIRD Verified 04/16/19 09:49 FEELING NSAIDS (Non-Steroidal AdvReac Intermediate advised Verified 04/16/19 09:49 Anti-Inflamma not to take d/t cirrhosis and gi bleed Past Med/Surg History Medical History (Updated 04/26/19 @ 18:25 by Seda Nixon DO) Anemia Ascites usually happens q 6 weeks - follows with [facility] Asthma RARELY USES PRN INH Chronic back pain Chronic reflux esophagitis COPD (chronic obstructive pulmonary disease) Depression with anxiety Diabetes type 2, controlled Dyslipidemia Esophageal varices in cirrhosis (Acute) GERD (gastroesophageal reflux disease) GI bleed (Resolved) HX Goals of care, counseling/discussion Hypertension Hypothyroidism Irritable bowel syndrome 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 ARAIZA; U/S EVERY 6 MONTHS for HCC SURVEILLANCE Microalbuminuria Osteoarthritis Spine and knee Osteoporosis Portal hypertension Restless legs syndrome Solitary pulmonary nodule PT REPORTS "SPOTS ON LUNGS" doenst follow with anyone Vitamin D deficiency Surgical History History of cholecystectomy History of colonoscopy W/ POLYPECTOMY History of esophagogastroduodenoscopy (EGD) History of hip surgery LT - [place] PRESENT History of left cataract extraction History of right cataract surgery History of surgery on extremity RLE - [place] PRESENT History of tonsillectomy History of tooth extraction History of total abdominal hysterectomy and bilateral salpingo-oophorectomy Secondary to fibroid History of tubal ligation Family History Mother Family history of diabetes mellitus Stroke Daughter Family history of diabetes mellitus Father Pneumonia Social History (Updated 04/25/19 @ 14:46 by Shannan Valles DO) Preferred Language: Scottish Communication Ability: Impaired Property Damage Claims Adjustor Required: No Beliefs That Will Affect Care: None marital status: Current Living Situation: Alone current occupational status: retired Feels Safe at Home: Yes Smoking Status: Current every day smoker Tobacco Type: cigarettes ; Age Started Using Tobacco: 16 ; packs per day: 1 ; Cigarettes Per Day: 20 ; Second Hand Exposure: No ; Hx Alcohol Use: No Hx Substance Use: No caffeine: Yes Dental Care, Regularly: Yes Physical Activity Frequency: Does not Exercise Seatbelt Use: always Review of Systems See HPI for pertinent positives & negatives. (These were according to family members) Unobtainable due to cognitive status Physical Exam Vital Signs Vital Signs - 24 hr 04/25/19 10:41 04/25/19 12:38 Temperature 37.6 C H Temperature Source Oral Pulse Rate 116 H Pulse Rate [Apical] 106 H Pulse Rhythm Regular Pulse Rhythm [Apical] Regular Respiratory Rate 20 19 Respiratory Effort / Characteristics Non-Labored Spontaneous Spontaneous Respiratory Depth Normal Normal Respiratory Pattern Regular Regular Blood Pressure 126/74 Blood Pressure [Left Arm] 148/67 H Blood Pressure Mean 91 Blood Pressure Mean [Left Arm] 94 Pulse Oximetry 95 96 Oxygen Delivery Method Nasal Cannula Room Air Oxygen Flow Rate 2 Sepsis Recent Fever Within 48 Hours No Sepsis New/Unexplained Change in Mental Status No Sepsis Action Taken by Nursing No Action Required GENERAL: alert, well appearing, well nourished, no distress, non-toxic. Patient is combative and is moaning. She will not follow commands. EYE EXAM: normal conjunctiva, PERRL and EOM's grossly intact OROPHARYNX: no exudate, no erythema, lips, buccal mucosa, and tongue normal and mucous membranes are moist NECK: supple, no nuchal rigidity, no adenopathy, non-tender LUNGS: Clear to auscultation. Normal chest wall mechanics, no w/r/r HEART: no murmurs, S1 normal and S2 normal ABDOMEN: abdomen soft, non-tender, normo-active bowel sounds, no masses, no rebound or guarding. RECTAL: No obvious bleeding, external hemorrhoids, and anal fissure. Melena noted. Heme positive on guaiac testing. Nurses present during exam. BACK: Back is symmetrical on inspection and there is no deformity, no midline tenderness, no CVA tenderness. SKIN: no rashes and no bruising UPPER EXTREMITIES: upper extremities are grossly normal. FROM, nml pulses b/l. LOWER EXTREMITIES: No pitting edema. FROM, nml pulses b/l. NEURO EXAM: No obvious facial droop. Patient cannot cooperate with any additional neuro testing. Patient moving all extremities spontaneously. Course Course 1033: The patient was evaluated in room A12B, and a complete history and physical examination were performed. No active bleeding noted. 1053: The patient's medications list was reviewed. There is no anti platelet or anti coagulant therapy. 1145: I reevaluated the patient. I discussed the patient's condition with her family. I discussed the need for possible intubation for control of her airway and additional evaluation due to critical illness. 1207: I reevaluated the patient. She is more calm. 1223: Second line is and labs are done. No recurrent rectal bleeding while in the ER. 1255: I reevaluated the patient. I updated the family. 1308: I discussed the patient's case with [facility]. Dr. Klein - Gastroenterology will come to see the patient. 1317: I reevaluated the patient. I updated the family. 1318: I [facility] the [facility] will evaluate the patient for further management. 1342: I reevaluated the patient. Dr. Valles is at bedside. 1415: Patient stable, resting at this time. Patient not had any rectal bleeding while in the emergency room. Vital signs stable. Administered Medications Amitriptyline HCl (Elavil) 25 mg PO HS [facility] Stop: 05/25/19 20:59 Last Admin: 04/25/19 21:17 Dose: Not Given Documented by: [id number] Levothyroxine Sodium 62.5 mcg/ (Syringe) 3.125 mls @ 2 mls/min IV DAILY@0900 MONIQUE Stop: 05/26/19 08:59 Last Admin: 04/26/19 08:47 Dose: 2 mls/min Documented by: [id number] Insulin Aspart (Novolog Flexpen) 0 units SC Q6 [facility]IQUE Stop: 05/25/19 16:29 Last Admin: 04/26/19 17:31 Dose: 1 units Documented by: [id number] Cosigned by: [id number] Admin: 04/26/19 12:12 Dose: 1 units Documented by: [id number] Cosigned by: [id number] Admin: 04/26/19 06:51 Dose: 1 units Documented by: [id number] Cosigned by: [id number] Admin: 04/26/19 00:06 Dose: 3 units Documented by: [id number] Cosigned by: [id number] Admin: 04/25/19 17:58 Dose: 2 units Documented by: [id number] Cosigned by: [id number] Ioversol (Optiray 320 100ml) 95 ml IV ONCE PRN PRN Reason: Interaction Checking Stop: 04/29/19 13:32 Last Admin: 04/25/19 13:34 Dose: 95 ml Documented by: [id number] Lactulose (Chronulac) 30 gm PO TID PRN PRN Reason: HEPATIC ENCEPHALOPATHY Stop: 05/26/19 14:44 Last Admin: 04/26/19 15:48 Dose: 30 gm Documented by: [id number] Rifaximin (Xifaxan) 200 mg PO TID [facility]IQUE Stop: 05/26/19 08:59 Last Admin: 04/26/19 14:47 Dose: 200 mg Documented by: [id number] Admin: 04/26/19 12:00 Dose: Not Given Documented by: [id number] Discontinued Medications Lactulose 200 gm/ Sterile Water 700 ml/ BARCODE IDENTIFIER [address] Q8H MONIQUE Stop: 05/26/19 03:59 Last Admin: 04/26/19 13:06 Dose: Not Given Documented by: [id number] Admin: 04/26/19 05:26 Dose: 200 gm Documented by: [id number] Sodium Chloride (Nss 1000ml) 1,000 mls @ 200 mls/hr IV .Q5H MONIQUE Stop: 05/25/19 10:59 Last Admin: 04/26/19 15:01 Dose: Not Given Documented by: [id number] Infusion: 04/26/19 14:50 Dose: 0 mls/hr Documented by: [id number] Infusion: 04/26/19 11:15 Dose: 200 mls/hr Documented by: [id number] Infusion: 04/26/19 09:16 Dose: 0 mls/hr Documented by: [id number] Admin: 04/26/19 07:31 Dose: 200 mls/hr Documented by: [id number] Infusion: 04/26/19 07:31 Dose: 200 mls/hr Documented by: [id number] Infusion: 04/26/19 07:25 Dose: 200 mls/hr Documented by: [id number] Admin: 04/26/19 03:11 Dose: 200 mls/hr Documented by: [id number] Infusion: 04/26/19 03:11 Dose: 200 mls/hr Documented by: [id number] Admin: 04/25/19 23:03 Dose: 200 mls/hr Documented by: [id number] Infusion: 04/25/19 22:59 Dose: 200 mls/hr Documented by: [id number] Admin: 04/25/19 17:59 Dose: 200 mls/hr Documented by: [id number] Infusion: 04/25/19 17:00 Dose: 200 mls/hr Documented by: [id number] Admin: 04/25/19 11:33 Dose: 200 mls/hr Documented by: [id number] Ceftriaxone Sodium (Rocephin) 1,000 mg in 50 mls @ 100 mls/hr IV NOW STA Stop: 04/25/19 11:18 Last Infusion: 04/25/19 15:00 Dose: 0 mls/hr Documented by: [id number] Admin: 04/25/19 12:37 Dose: 100 mls/hr Documented by: [id number] Pantoprazole Sodium 80 mg/ (Dextrose) 120 mls @ 480 mls/hr IV TODAY@1100 MONIQUE Stop: 04/25/19 11:14 Last Infusion: 04/25/19 12:25 Dose: 0 mls/hr Documented by: [id number] Admin: 04/25/19 11:48 Dose: 480 mls/hr Documented by: [id number] Pantoprazole Sodium 40 mg/ (Dextrose) 100 mls @ 20 mls/hr IV Q5H MONIQUE Stop: 05/25/19 11:14 Last Admin: 04/26/19 15:01 Dose: Not Given Documented by: [id number] Infusion: 04/26/19 14:52 Dose: 0 mls/hr Documented by: [id number] Infusion: 04/26/19 11:15 Dose: 20 mls/hr Documented by: [id number] Infusion: 04/26/19 09:16 Dose: 0 mls/hr Documented by: [id number] Admin: 04/26/19 07:32 Dose: 20 mls/hr Documented by: [id number] Infusion: 04/26/19 07:32 Dose: 20 mls/hr Documented by: [id number] Infusion: 04/26/19 07:25 Dose: 20 mls/hr Documented by: [id number] Admin: 04/26/19 03:12 Dose: 20 mls/hr Documented by: [id number] Infusion: 04/26/19 03:12 Dose: 20 mls/hr Documented by: [id number] Admin: 04/25/19 23:05 Dose: 20 mls/hr Documented by: [id number] Infusion: 04/25/19 21:42 Dose: 20 mls/hr Documented by: [id number] Admin: 04/25/19 16:42 Dose: 20 mls/hr Documented by: [id number] Infusion: 04/25/19 16:30 Dose: 20 mls/hr Documented by: [id number] Admin: 04/25/19 11:30 Dose: 20 mls/hr Documented by: [id number] Octreotide Acetate 50 mcg/ (Syringe) 10 mls @ 3 mls/min IV ONE STA Stop: 04/25/19 11:24 Last Admin: 04/25/19 12:33 Dose: 3 mls/min Documented by: [id number] Octreotide Acetate 500 mcg/ (Sodium Chloride) 105 mls @ 10.5 mls/hr IV .Q10H MONIQUE Stop: 05/25/19 11:29 Last Infusion: 04/26/19 14:15 Dose: 0 mcg/hr, 0 mls/hr Documented by: [id number] Infusion: 04/26/19 11:15 Dose: 50 mcg/hr, 10.5 mls/hr Documented by: [id number] Infusion: 04/26/19 09:16 Dose: 0 mcg/hr, 0 mls/hr Documented by: [id number] Admin: 04/26/19 07:32 Dose: 50 mcg/hr, 10.5 mls/hr Documented by: [id number] Infusion: 04/26/19 07:25 Dose: 50 mcg/hr, 10.5 mls/hr Documented by: [id number] Admin: 04/25/19 21:25 Dose: 50 mcg/hr, 10.5 mls/hr Documented by: [id number] Infusion: 04/25/19 21:25 Dose: 50 mcg/hr, 10.5 mls/hr Documented by: [id number] Admin: 04/25/19 12:35 Dose: 50 mcg/hr, 10.5 mls/hr Documented by: [id number] Pantoprazole Sodium 40 mg/ (Syringe) 10 mls @ 5 mls/min IV ONE ONE; Protocol Stop: 04/25/19 12:01 Last Admin: 04/25/19 12:08 Dose: 5 mls/min Documented by: [id number] Piperacillin Sod/Tazobactam (Sod 4.5 gm/ Dextrose) 120 mls @ 28.75 mls/hr IV Q8H MONIQUE; Protocol Stop: 04/28/19 05:59 Last Admin: 04/26/19 16:33 Dose: Not Given Documented by: [id number] Infusion: 04/26/19 12:39 Dose: 0 mls/hr Documented by: [id number] Infusion: 04/26/19 07:25 Dose: 28.8 mls/hr Documented by: [id number] Admin: 04/26/19 06:21 Dose: 28.8 mls/hr Documented by: [id number] Piperacillin Sod/Tazobactam (Sod 4.5 gm/ Dextrose) 120 mls @ 240 mls/hr IV ONE ONE; Protocol Stop: 04/26/19 01:59 Last Infusion: 04/26/19 02:20 Dose: 0 mls/hr Documented by: [id number] Admin: 04/26/19 01:47 Dose: 240 mls/hr Documented by: [id number] Ketamine HCl (Ketalar Steri-Vial) 5 mg IV NOW STA Stop: 04/25/19 19:19 Last Admin: 04/25/19 20:05 Dose: 5 mg Documented by: [id number] Ketamine HCl (Ketalar Steri-Vial) 5 mg IV NOW STA Stop: 04/25/19 21:42 Last Admin: 04/25/19 20:39 Dose: 5 mg Documented by: [id number] Ketamine HCl (Ketalar Steri-Vial) 5 mg IV NOW STA Stop: 04/25/19 21:43 Last Admin: 04/25/19 21:05 Dose: 5 mg Documented by: [id number] Ketamine HCl (Ketalar Steri-Vial) 5 mg IV NOW STA Stop: 04/25/19 23:08 Last Admin: 04/25/19 22:05 Dose: 5 mg Documented by: [id number] Ketamine HCl (Ketalar Steri-Vial) 5 mg IV NOW STA Stop: 04/25/19 23:18 Last Admin: 04/26/19 00:00 Dose: 5 mg Documented by: [id number] Lactulose (Chronulac) 30 gm PO TID MONIQUE Stop: 05/26/19 14:44 Last Admin: 04/26/19 15:02 Dose: Not Given Documented by: [id number] Lidocaine HCl (Xylocaine 2%) Confirm Administered Dose 4 ml INFIL .STK-MED ONE Stop: 04/26/19 10:30 Last Admin: 04/26/19 12:00 Dose: Not Given Documented by: [id number] Midazolam HCl (Versed) 2 mg IV NOW STA Stop: 04/25/19 11:38 Last Admin: 04/25/19 11:48 Dose: Not Given Documented by: [id number] Midazolam HCl (Versed) Confirm Administered Dose 2 mg .ROUTE .STK-MED ONE Stop: 04/25/19 11:48 Last Increment: 04/25/19 11:47 Dose: 1 mg Documented by: [id number] Midazolam HCl (Versed) 1 mg IV NOW STA Stop: 04/25/19 11:59 Last Admin: 04/25/19 13:58 Dose: Not Given Documented by: [id number] Midazolam HCl (Versed) Confirm Administered Dose 2 mg .ROUTE .STK-MED ONE Stop: 04/25/19 13:16 Last Admin: 04/25/19 13:27 Dose: 1 mg Documented by: [id number] Miscellaneous (Unit Dose Compound) [address] Q8H [facility] Stop: 05/26/19 03:59 Last Admin: 04/26/19 13:06 Dose: Not Given Documented by: [id number] Admin: 04/26/19 10:28 Dose: Not Given Documented by: [id number] Propofol (Diprivan) Confirm Administered Dose 200 mg IV .STK-MED ONE Stop: 04/26/19 10:30 Last Admin: 04/26/19 12:00 Dose: Not Given Documented by: [id number] Critical Care Time Critical Care Time: Yes Total Critical Care Time: 96 I have personally spent 96 minutes of critical care time in the direct management of this patient. This includes bedside care, interpretation of diagnostic studies, and testing, discussion with consultants, patient, and family members, and other required patient management activities. This 96 minutes is in excess of all separately billable procedures. Medical Decision Making Differential Diagnosis Differential diagnosis includes etiologies such as diverticulosis, AVM, coagulopathy, colitis, inflammatory bowel disease, malignancy, Krupa-Oviedo tear, esophagitis, peptic ulcer disease, variceal bleed, gastritis, epistaxis, fissure, hemorrhoids, as well as others were entertained. Medical Records Attestation: I reviewed the patient's medical records. Noted to have bleeding varices on 09/17/18. No obvious bleeding. No stigmata of recent bleeding. No obvious bleeding on colonoscopy at that time. She had a CT of her abdomen, stool cultures, flu test, blood cultures, and lactic acid. Home Medications Current Medication List: was personally reviewed by me Laboratory Data Attestation: I reviewed the patient's lab results. Result diagrams: 04/26/19 05:50 04/26/19 05:10 Lab Results 04/25/19 04/25/19 04/25/19 Range/Units 11:31 11:31 12:11 WBC 19.37 H (4.8-10.8) K/uL RBC 2.72 L (4.2-5.4) M/uL Hgb 9.7 L (12.0-16.0) g/dL Hct 29.4 L (37-47) % MCV 108.1 H (80-100) fL MCH 35.7 H (25-34) pg MCHC 33.0 (32-36) g/dL RDW Std Deviation 54.9 H (36.4-46.3) fL RDW Coeff of Mile 14.1 (11.5-14.5) % Plt Count 236 (130-400) K/uL MPV 10.4 (7.4-10.4) fL Immature Gran % (Auto) 0.6 % Neut % (Auto) 80.7 % Lymph % (Auto) 13.4 % Ford % (Auto) 5.2 % Eos % (Auto) 0.0 % Baso % (Auto) 0.1 % Immature Gran # (Auto) 0.11 H (0.00-0.02) K/uL Neut # (Auto) 15.66 H (1.4-6.5) K/uL Lymph # (Auto) 2.59 (1.2-3.4) K/uL Ford # (Auto) 1.00 H (0.11-0.59) K/uL Eos # (Auto) 0.00 (0-0.5) K/uL Baso # (Auto) 0.01 (0-0.2) K/uL Absolute Nucleated RBC 0.02 H (0-0) K/uL Nucleated RBC % (auto) 0.1 % Sodium 142 (136-145) mmol/L Potassium 4.8 (3.5-5.1) mmol/L Chloride 113 H (98-107) mmol/L Carbon Dioxide 21 (21-32) mmol/L Anion Gap 8.0 (3-11) BUN 81 H (7-18) mg/dl Creatinine 1.22 H (0.6-1.2) mg/dl Est Cr Clr Drug Dosing 48.4 ml/min Est GFR ( Amer) 49.8 Est GFR (Non-Af Amer) 43.0 BUN/Creatinine Ratio 66.6 H (10-20) Glucose 185 H (70-99) mg/dl POC Lactic Acid Cem (0.90-1.70) mmol/L Calcium 9.2 (8.5-10.1) mg/dl Magnesium 1.8 (1.8-2.4) mg/dl Total Bilirubin 0.5 (0.2-1) mg/dl AST 53 H (15-37) U/L ALT 44 (12-78) U/L Alkaline Phosphatase 54 (45-117) U/L Ammonia (11-32) umol/L Troponin I 0.201 H* (0-0.045) ng/ml NT-Pro-B Natriuret Pep 667 (0-1800) pg/ml Total Protein 6.6 (6.4-8.2) gm/dl Albumin 2.7 L (3.4-5.0) gm/dl Globulin 3.9 (2.5-4.0) gm/dl Albumin/Globulin Ratio 0.7 L (0.9-2) Lipase 61 L (73-393) U/L Blood Type A Positive Antibody Screen NEGATIVE 04/25/19 04/25/19 Range/Units 12:23 12:25 WBC (4.8-10.8) K/uL RBC (4.2-5.4) M/uL Hgb (12.0-16.0) g/dL Hct (37-47) % MCV (80-100) fL MCH (25-34) pg MCHC (32-36) g/dL RDW Std Deviation (36.4-46.3) fL RDW Coeff of Mile (11.5-14.5) % Plt Count (130-400) K/uL MPV (7.4-10.4) fL Immature Gran % (Auto) % Neut % (Auto) % Lymph % (Auto) % Ford % (Auto) % Eos % (Auto) % Baso % (Auto) % Immature Gran # (Auto) (0.00-0.02) K/uL Neut # (Auto) (1.4-6.5) K/uL Lymph # (Auto) (1.2-3.4) K/uL Ford # (Auto) (0.11-0.59) K/uL Eos # (Auto) (0-0.5) K/uL Baso # (Auto) (0-0.2) K/uL Absolute Nucleated RBC (0-0) K/uL Nucleated RBC % (auto) % Sodium (136-145) mmol/L Potassium (3.5-5.1) mmol/L Chloride (98-107) mmol/L Carbon Dioxide (21-32) mmol/L Anion Gap (3-11) BUN (7-18) mg/dl Creatinine (0.6-1.2) mg/dl Est Cr Clr Drug Dosing ml/min Est GFR ( Amer) Est GFR (Non-Af Amer) BUN/Creatinine Ratio (10-20) Glucose (70-99) mg/dl POC Lactic Acid Cem 5.45 H (0.90-1.70) mmol/L Calcium (8.5-10.1) mg/dl Magnesium (1.8-2.4) mg/dl Total Bilirubin (0.2-1) mg/dl AST (15-37) U/L ALT (12-78) U/L Alkaline Phosphatase (45-117) U/L Ammonia 80.0 H (11-32) umol/L Troponin I (0-0.045) ng/ml NT-Pro-B Natriuret Pep (0-1800) pg/ml Total Protein (6.4-8.2) gm/dl Albumin (3.4-5.0) gm/dl Globulin (2.5-4.0) gm/dl Albumin/Globulin Ratio (0.9-2) Lipase (73-393) U/L Blood Type Antibody Screen Imaging Data Radiologist's Impression: Radiology results as stated below per my review and the radiologist's interpretation: XR chest 1V portable CLINICAL HISTORY: ams, gi bleed dyspnea COMPARISON STUDY: 03/15/2018 FINDINGS: Stable component of emphysematous and interstitial change. Mild stable cardiac enlargement. Diaphragms are smooth. IMPRESSION: Chronic emphysematous and interstitial change. ACT 112: Negative or not required by law. The above report was generated using voice recognition software. It may contain grammatical, syntax or spelling errors. Electronically signed by: Santiago Handy M.D. 04/25/2019 1:25 PM ECG Data Attestation: I personally reviewed and interpreted this ECG as follows: Indication: + altered mental status Rate (beats per minute): 120 Rhythm: + sinus tachycardia ECG Intervals/blocks: + Normal QRS, + Normal QT, + Normal CT and + Normal QT-c ECG [place]: + Right axis deviation ECG ST segments: no ST depression and no ST elevation ECG Findings: + Other (Severe artifact due to poor patient cooperation) Blood Pressure Blood Pressure Findings: Elevated blood pressure Blood Pressure Disposition: further management by hospitalist JADA Narrative This is a complicated patient presenting with altered mentation and GI bleed. Difficulty obtaining labs and the patient. With initial IV access patient started on IV fluids, due to suspicion for upper GI bleed, protonix bolus and drip started also. After additional IV access obtained and after review of EMR, patient also started on octreotide bolus and drip. Patient covered with 1 g of Rocephin as a precaution. Patient afebrile no recent illness. Given description by family of "indigestion" reported by patient last night and then GI bleed this morning, I feel patient more likely with upper GI bleed. Melena and heme positive stool noted on exam. Patient remained hemodynamically stable and had intermittent episodes of slight improvement in her mentation. Patient had been given Ativan by EMS prior to arrival which did make assessment of her mentation and neurologic status difficult. Due to poor cooperation while obtaining additional labs and second IV line, patient was given a dose of Versed which did help. Family did give consent for both blood transfusion, as well as possible intubation or other emergent procedures such as EGD if needed. Patient's ammonia found to be elevated and likely component of hepatic en cephalopathy contributing to altered mentation. Case discussed with hospitalist, GI on-call, and shell press operator. Patient rechecked multiple times and frequently in the emergency room to monitor for any acute changes that would require emergent intervention or procedure. I feel elevated troponin likely secondary to physiologic stress. Patient's H&H about half what it was 4 to 6 weeks ago. Concerned that if patient has recurrent episode of bleeding she require more emergent blood transfusion. No current antiplatelet or anticoagulation therapy to warrant reversal agents. I do not suspect ACS, bacteremia/sepsis. Despite elevated lactic acid I am less suspicious of mesenteric ischemia. Based on prior history as well as review of EMR with EGD and [place], I feel an upper GI bleed or variceal bleed is more likely. 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, Esophageal varices in cirrhosis, Elevated troponin, Elevated lactic acid level Patient Disposition: Admitted As Inpatient Discharge Instructions Interventions: ED Discharge Assessment Last Done: 04/25/19 14:22 Discharge Problem: GI (gastrointestinal bleed) Qualifiers: GI bleed type/associated pathology: unspecified gastrointestinal hemorrhage type Qualified Code(s): K92.2 - Gastrointestinal hemorrhage, unspecified Anemia Qualifiers: Anemia type: unspecified type Qualified Code(s): D64.9 - Anemia, unspecified AMS (altered mental status) Qualifiers: Altered mental status type: unspecified Qualified Code(s): R41.82 - Altered me ntal status, unspecified The scribe's documentation has been prepared under my direction and personally reviewed by me in its entirety. I confirm that the note above accurately reflects all work, treatment, procedures, and medical decision making performed by me.
[2019-04-25] MEDS: INSULIN ASPART 100 UNITS/ML 3 ML PEN SC SCH (17:58)
[2019-04-25 19:11] LABS: Amphetamines+Metham, Urine Neg (Neg); Barbiturates, Urine Neg (Neg); Benzodiazepine, Urine Pos (Neg); Cocaine, Urine Neg (Neg); MDMA (Ecstacy), Urine Neg (Neg); Methadone, Urine Neg (Neg); Opiate, Urine Neg (Neg); Phencyclidine, Urine Neg (Neg)
[2019-04-25] MEDS ORDERED: KETAMINE HCL INJ 50 MG/ML 10 ML VIAL IV STA ×5 (19:18→23:17)
[2019-04-25] MEDS: AMITRIPTYLINE HCL 25 MG TAB PO SCH (21:17)
--- NOTE | 2019-04-25 22:36 | CT Scan Report ---
CT head/brain wo con CLINICAL HISTORY: 78 years-old Female with AMS; encephalopathy. Acutely altered mental status with e ncephalopathy TECHNIQUE: Multiple axial CT images of the head were obtained without contrast. A dose lowering tech nique was utilized adhering to the principles of ALARA. CT DOSE: 1768.17 mGy.cm COMPARISON: Head CT 03/15/2019 FINDINGS: No acute intracranial hemorrhage, midline shift, intracranial mass, hydrocephalus, territorial ischem ia or abnormal extra-axial collection. The study is extremely motion degraded. Age-related involution al changes with patchy white matter hypodensity suggestive chronic microvascular ischemic disease. Th e calvarium is intact. The paranasal sinuses, mastoid air cells, and middle ear cavities are clear. IMPRESSION: Markedly motion degraded exam. Within the limitations of the exam, no acute intracranial abnormality is identified. ACT 112: Negative or not required by law. The above report was generated using voice recognition software. It may contain grammatical, syntax o r spelling errors. Electronically signed by: Aaron Ugalde M.D. 04/25/2019 10:35 PM
--- NOTE | 2019-04-25 22:38 | Ultrasound Report ---
US duplex portal hepatic veins HISTORY: 78 years-old Female new-onset encephalopathy, h/o NALFD cirrhosis acute encephalopathy with cirrhosis COMPARISON: CT abdomen and pelvis 04/25/2019 TECHNIQUE: Multiple real-time sonographic images of the liver vessels were obtained assessing graysca le appearance and color flow FINDINGS: Limited exam secondary to patient lack of cooperation. Hepatic and portal veins appear patent. Normal spectral waveforms within the hepatic veins. Hepatopedal flow within the portal vein. Patent hepatic artery. Cirrhotic morphology of the liver. IMPRESSION: Limited exam as above. Unremarkable appearance of the visualized hepatic vascular structu res. ACT 112: Negative or not required by law. The above report was generated using voice recognition software. It may contain grammatical, syntax o r spelling errors. Electronically signed by: Aaron Ugalde M.D. 04/25/2019 10:37 PM
--- NOTE | 2019-04-25 23:26 | Critical Care Consultation ---
Date of Consultation April 25, 2019 History of Present Illness Attending Physician: Shannan Valles DO History of Present Illness Ms. Bourne is a 78-year-old female with past medical history SANTOS, ascites, COPD GERD, IBS who was brought into the ED for AMS by family Allergies Allergy/AdvReac Type Severity Reaction Status Date / Time aspirin AdvReac Intermediate advised Verified 04/16/19 09:49 not to take d/t cirrhosis and gi bleed cortisone AdvReac Intermediate "WEIRD Verified 04/16/19 09:49 FEELING NSAIDS (Non-Steroidal AdvReac Intermediate advised Verified 04/16/19 09:49 Anti-Inflamma not to take d/t cirrhosis and gi bleed Home Medications Home Medications Medication Instructions Recorded Confirmed Type cholecalciferol (vitamin D3) 125 0 unit PO QAM #30 tab 08/17/18 04/25/19 History mcg (5,000 unit) tablet blood sugar diagnostic #50 ea 09/07/18 04/16/19 Rx polyethylene glycol 3350 17 0 g PO DAILY PRN 09/07/18 04/25/19 History gram/dose oral powder cyanocobalamin (vitamin B-12) 0 mcg PO QAM 09/17/18 04/25/19 History [Vitamin B-12] albuterol sulfate 0 mg INH Q4H PRN 01/02/19 04/25/19 History albuterol sulfate 90 mcg/actuation 0 inh INH DIRECTED PRN 01/03/19 04/25/19 History aerosol inhaler amlodipine [Norvasc] 5 mg PO QAM 02/04/19 04/25/19 History furosemide [Lasix] 20 mg PO QAM 02/04/19 04/25/19 History ondansetron 4 - 8 mg PO Q8 PRN 03/15/19 04/25/19 History amitriptyline 25 mg tablet 25 mg PO HS #30 tab 03/26/19 04/25/19 Rx carvedilol [Coreg] 25 mg PO BID 04/25/19 04/25/19 History diclofenac sodium [Voltaren] 1 % TOPICAL Q4H PRN 04/25/19 04/25/19 History ferrous sulfate [Iron (ferrous 325 mg PO BID 04/25/19 04/25/19 History sulfate)] levothyroxine [Synthroid] 125 mcg PO QAM 04/25/19 04/25/19 History meclizine [Dramamine Less Drowsy] 25 mg PO TID PRN 04/25/19 04/25/19 History methocarbamol 500 mg PO Q8H PRN 04/25/19 04/25/19 History metoclopramide HCl [Reglan] 5 mg PO BID PRN 04/25/19 04/25/19 History oxycodone [Roxicodone] 5 mg PO Q8H PRN 04/25/19 04/25/19 History pantoprazole [Protonix] 40 mg PO QAM 04/25/19 04/25/19 History pramipexole 0 mg PO QPM PRN 04/25/19 04/25/19 History prenat.vits,evelyn,cen-ccar-ofmhg 0 tab PO DAILY 04/25/19 04/25/19 History spironolactone [Aldactone] 25 mg PO BID 04/25/19 04/25/19 History Patient History Medical History Anemia Ascites usually happens q 6 weeks - follows with [facility] Asthma RARELY USES PRN INH Chronic back pain Chronic reflux esophagitis COPD (chronic obstructive pulmonary disease) Depression with anxiety Diabetes type 2, controlled Dyslipidemia Esophageal 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 ARAIZA; U/S EVERY 6 MONTHS for HCC SURVEILLANCE Microalbuminuria Osteoarthritis Spine and knee Osteoporosis Portal hypertension Restless legs syndrome Solitary pulmonary nodule PT REPORTS "SPOTS ON LUNGS" doenst follow with anyone Vitamin D deficiency Surgical History History of cholecystectomy History of colonoscopy W/ POLYPECTOMY History of esophagogastroduodenoscopy (EGD) History of hip surgery LT - [place] PRESENT History of left cataract extraction History of right cataract surgery History of surgery on extremity RLE - HARD[place] PRESENT History of tonsillectomy History of tooth extraction History of total abdominal hysterectomy and bilateral salpingo-oophorectomy Secondary to fibroid History of tubal ligation Family History Mother Family history of diabetes mellitus Stroke Daughter Family history of diabetes mellitus Father Pneumonia Social History (Updated 04/25/19 @ 14:46 by Shannan Valles DO) Preferred Language: Setswana Communication Ability: Impaired Loading Inspector Required: No Beliefs That Will Affect Care: None marital status: Current Living Situation: Alone current occupational status: retired Feels Safe at Home: Yes Smoking Status: Current every day smoker Tobacco Type: cigarettes ; Age Started Using Tobacco: 16 ; packs per day: 1 ; Cigarettes Per Day: 20 ; Second Hand Exposure: No ; Hx Alcohol Use: No Hx Substance Use: No caffeine: Yes Dental Care, Regularly: Yes Physical Activity Frequency: Does not Exercise Seatbelt Use: always Results & Data Vital Signs (Past 12 Hours) Vital Signs Temp Pulse Pulse Resp BP BP Pulse Ox 04/25/19 23:00 89 14 98 04/25/19 22:50 105 H 24 90/51 L 98 04/25/19 22:47 108 H 26 H 83/65 L 97 04/25/19 22:00 102 H 15 97 04/25/19 21:00 106 H 18 95 04/25/19 20:00 114 H 22 127/105 H 96 04/25/19 19:15 113 H 04/25/19 19:00 37.4 C 108 H 20 115/63 94 04/25/19 17:50 114 H 21 127/71 94 04/25/19 17:15 118 H 15 149/97 H 96 04/25/19 16:00 103 H 04/25/19 15:51 115 H 22 158/77 H 95 04/25/19 15:00 36.5 C 119 H 110 H 28 H 123/93 93 04/25/19 14:22 115 H 18 121/88 96 04/25/19 13:58 103 H 20 110/51 L 93 04/25/19 12:38 106 H 19 148/67 H 96 Coding
[2019-04-26] MEDS: INSULIN ASPART 100 UNITS/ML 3 ML PEN SC SCH ×4 (00:06→17:31)
[2019-04-26 00:33] LABS: Hematocrit (blood only) 23.8 % (37-47); Hemoglobin 7.9 g/dL (12.0-16.0)
[2019-04-26] MEDS ORDERED: PIPERACILL/TAZOBAC CONSULT ACTIVE PRN ×2 (01:17)
[2019-04-26 01:26] LABS: Basophils # (auto) 0.02 K/uL (0-0.2); Basophils % (auto) 0.1 %; Eosinophils # (auto) 0.01 K/uL (0-0.5); Eosinophils % (auto) 0.1 %; Hematocrit (blood only) 23.8 % (37-47); Hemoglobin 7.9 g/dL (12.0-16.0); Immature Granulocytes # (auto) 0.09 K/uL (0.00-0.02); Immature Granulocytes % (auto) 0.5 %; Lymphocytes # (auto) 2.91 K/uL (1.2-3.4); Lymphocytes % (auto) 14.9 %; Mean Corpuscular Hemoglobin 36.1 pg (25-34); Mean Corpuscular Volume 108.7 fL (80-100); Mean Platelet Volume 9.9 fL (7.4-10.4); Monocytes % (auto) 11.2 %; Neutrophils # (auto) 14.34 K/uL (1.4-6.5); Neutrophils % (auto) 73.2 %; Platelet Count 195 K/uL (130-400); RDW Coefficient of Variation 14.8 % (11.5-14.5); RDW Standard Deviation 58.5 fL (36.4-46.3); Red Blood Count 2.19 M/uL (4.2-5.4); White Blood Count 19.57 K/uL (4.8-10.8)
[2019-04-26] MEDS ORDERED: PIPERACILLIN/TAZOBACTAM 4.5 GM in DEXTROSE 5% 100 ML IV ONE (01:30)
[2019-04-26 01:44] LABS: Appearance Urine Clear (Clear); Bacteria Urine Automated Negative (Negative); Bilirubin Urine Negative (Negative); Blood Urine Trace (Negative); Color Urine Yellow; Glucose Urine UA Negative (Negative); Ketones Urine Negative (Negative); Leukocyte Esterase Urine Negative (Negative); Nitrite Urine Negative (Negative); Protein Urine Negative (Negative); RBC Urine Automated 0-4 /hpf (0-4); Specific Gravity Urine 1.029 (1.000-1.030); Urobilinogen Urine Negative (Negative)
[2019-04-26 01:51] LABS: Mean Corpuscular Hgb Conc 33.2 g/dL (32-36)
[2019-04-26 01:52] LABS: Polychromasia 1+
[2019-04-26] MEDS: SODIUM CHLORIDE 0.9% 1000ML 1,000 ML IV SCH ×3 (03:11→15:01)
[2019-04-26] MEDS: PANTOprazole 40 MG in DEXTROSE 5% 100 ML IV SCH ×3 (03:12→15:01)
[2019-04-26] MEDS ORDERED: LACTULOSE 200 GM, WATER, STERILE IRRIG 700 ML, BARCODE IDENTIFIER 1 EA PR SCH (04:00)
[2019-04-26] MEDS: LACTULOSE 200 GM, WATER, STERILE IRRIG 700 ML, BARCODE IDENTIFIER 1 EA PR SCH ×2 (05:26→13:06)
[2019-04-26 06:00] LABS: Albumin Level 2.6 gm/dl (3.4-5.0); BUN Creatinine Ratio 45.6 (10-20); Bilirubin Direct 0.1 mg/dl (0-0.2); Bilirubin,Total 0.5 mg/dl (0.2-1); Calcium 8.2 mg/dl (8.5-10.1); Creatinine Clr Calc Pharmacy 59.1 ml/min; Est GFR (African American) 69.2; Est GFR (Non-African American) 59.7; Magnesium 1.9 mg/dl (1.8-2.4); Phosphorus 2.8 mg/dl (2.5-4.9); Potassium 3.8 mmol/L (3.5-5.1)
[2019-04-26 06:03] LABS: Basophils # (auto) 0.02 K/uL (0-0.2); Basophils % (auto) 0.1 %; Eosinophils # (auto) 0.01 K/uL (0-0.5); Eosinophils % (auto) 0.1 %; Hematocrit (blood only) 24.1 % (37-47); Hemoglobin 7.8 g/dL (12.0-16.0); Immature Granulocytes # (auto) 0.08 K/uL (0.00-0.02); Immature Granulocytes % (auto) 0.4 %; Lymphocytes # (auto) 3.02 K/uL (1.2-3.4); Lymphocytes % (auto) 16.4 %; Mean Corpuscular Hemoglobin 35.3 pg (25-34); Mean Platelet Volume 9.6 fL (7.4-10.4); Monocytes % (auto) 11.4 %; Neutrophils # (auto) 13.13 K/uL (1.4-6.5); Neutrophils % (auto) 71.6 %; Platelet Count 187 K/uL (130-400); RDW Standard Deviation 58.9 fL (36.4-46.3); Red Blood Count 2.21 M/uL (4.2-5.4); White Blood Count 18.36 K/uL (4.8-10.8)
[2019-04-26 06:10] LABS: Mean Corpuscular Hgb Conc 32.4 g/dL (32-36)
[2019-04-26] MEDS: PIPERACILLIN/TAZOBACTAM 4.5 GM in DEXTROSE 5% 100 ML IV SCH ×3 (06:21→16:33)
[2019-04-26 06:25] LABS: Polychromasia 1+
[2019-04-26 07:00] LABS: Estimated Average Glucose 105 mg/dl; Hemoglobin A1C 5.3 % (4.5-5.6)
[2019-04-26] MEDS: OCTREOTIDE ACETATE 500 MCG in 0.9 % SODIUM CHLORIDE 100 ML IV SCH (07:32)
[2019-04-26] MEDS: RIFAXIMIN 200 MG TABLET PO SCH ×4 (08:47→21:20)
[2019-04-26] MEDS: LEVOTHYROXINE SODIUM 62.5 MCG in SYRINGE 0 ML IV SCH (08:47)
[2019-04-26] MEDS ORDERED: cefTRIAXone SODIUM 2,000 MG in DEXTROSE 5% 50 ML IV SCH (09:00)
--- NOTE | 2019-04-26 09:00 | Gastroenterology Progress Note ---
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 Overnight continued with melena, no hematemesis, BRBPR. Imaging and labs reviewed. HGB down to 7.8 this AM (was 9.7 yesterday), BUN 43. Renal fxn and LFTs stable. BP remains low-normal; afebrile. CTAP with trace ascites. Blood cultures pending. Remains encephalopathic. - This AM, EGD with G2 EV, no source of bleeding identified - As she is still encephalopathic, continue lactulose every 1-2 hours until mentation improves. 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 Patient remains encephalopathic. EGD done today did not show any bleeding in the UGI tract. While she has grade 2 varices, there is no sign of hemorrhage. Similar to presentation several months ago. At present, she needs more agressive lactulose to clear her HE. Once clear, can consider small bowel imaging given her history of malignancy. Subjective Pt seen and examined today in f/u; overnight continues to have melena; getting lactulose enemas. Not oriented, however now opens eyes to voice and is answering some questions though not following commands. Denies abd pain. No reports of hematemesis, BRBPR. EGD done today with G2 esophageal varies, no sigmata of bleeding; PHG; normal duodenum; no source of GIB identified. Overnight HGB down to 7.8, BUN 43, INR 1.2. Renal fxn, LFTs stable. Urine tox pending, head C without acute findings (though pt had significant motion), Tylenol level is normal. Hepatic duplex = no PVT. BP remains low-normal. Review of Systems Review of Systems: Unobtainable due to cognitive status Physical Exam Constitutional: well developed Resting on her right side with eyes closed Eyes: + anicteric sclerae Respiratory: normal respiratory effort, lungs clear to auscultation Cardiovascular: RRR, no murmur, no edema Gastrointestinal (Abdomen): Inspection/Auscultation: abdomen normal to inspection and normal bowel sounds; abdomen not distended Percussion/Palpation: abdomen soft and normal to percussion; abdomen nontender + rectal tube in place with melena in the tube; scant amt in bag; was just changed earlier this AM Skin: no rashes, warm and dry no jaundice Psychiatric: arouses briefly to voice; doesn't keep eyes open; answers some questions; not oriented Results & Data Vital Signs (Past 12 Hours) Vital Signs Temp Pulse Resp BP Pulse Ox 04/26/19 05:00 96 H 22 98 04/26/19 04:00 97 H 18 98 04/26/19 03:00 95 H 14 98 04/26/19 02:51 97 H 25 H 123/50 L 96 04/26/19 02:00 98 H 18 96 04/26/19 01:51 101 H 18 114/63 97 04/26/19 01:00 100 H 14 04/26/19 00:51 102 H 16 111/69 04/26/19 00:00 37.2 C 92 H 19 97 04/25/19 23:56 105 H 13 89/81 L 97 04/25/19 23:27 101 H 04/25/19 23:00 89 14 98 04/25/19 22:50 105 H 24 90/51 L 98 04/25/19 22:47 108 H 26 H 83/65 L 97 04/25/19 22:00 102 H 15 97 Laboratory Results 04/26/19 04/26/19 04/26/19 Range/Units Unknown 06:42 05:50 WBC (4.8-10.8) K/uL RBC (4.2-5.4) M/uL Hgb (12.0-16.0) g/dL Hct (37-47) % MCV (80-100) fL MCH (25-34) pg MCHC (32-36) g/dL RDW Std Deviation (36.4-46.3) fL RDW Coeff of Mile (11.5-14.5) % Plt Count (130-400) K/uL MPV (7.4-10.4) fL Immature Gran % (Auto) % Neut % (Auto) % Lymph % (Auto) % [place] % (Auto) % Eos % (Auto) % Baso % (Auto) % Immature Gran # (Auto) (0.00-0.02) K/uL Neut # (Auto) (1.4-6.5) K/uL Lymph # (Auto) (1.2-3.4) K/uL [place] # (Auto) (0.11-0.59) K/uL Eos # (Auto) (0-0.5) K/uL Baso # (Auto) (0-0.2) K/uL Absolute Nucleated RBC (0-0) K/uL Nucleated RBC % (auto) % Neutrophils % (Manual) Band Neutrophils % Lymphocytes % (Manual) Prolymphocyte % Reactive Lymphs % (Man) Monocytes % (Manual) Eosinophils % (Manual) Basophils % (Manual) Metamyelocytes % (Man) Myelocytes % (Man) Promyelocytes % (Man) Blast Cells % (Manual) Plasma Cell % (Manual) Other Cells % Nucleated RBC % Neutrophils # (Manual) Band Neutrophils # Total Absolute Neuts Lymphocytes # (Manual) Prolymphocyte # Reactive Lymphs # Total Abs Lymphocytes Monocytes # (Manual) Eosinophils # (Manual) Basophils # (Manual) Metamyelocytes # (Man) Myelocytes # (Manual) Promyelocytes # (Man) Blast Cells # (Man) Plasma Cell # (Manual) Other Cells # Nucleated RBCs # (Man) Hypersegmented Neuts Hyposegmented Neuts Hypogranular Neuts Large Granular Lymphs # Lrg Granular Lymphs Hairy Cells Smudge Cells Toxic Granulation Toxic Vacuolation Dohle Bodies Charley Rods Platelet Estimate Hypogranular Platelets Clumped Platelets Giant Platelets Platelet Satelliting RBC Morphology Polychromasia Hypochromasia Poikilocytosis Basophilic Stippling Anisocytosis Microcytosis Macrocytosis Spherocytes Pappenheimer Bodies Sickle Cells Target Cells Tear Drop Cells Ovalocytes Stomatocytes [place] Bodies Echinocytes Acanthocytes (Spur) Rouleaux RBC Agglutinates Schistocytes RBC Morph Comment Sezary Cell PT (9.0-12.0) Seconds INR (0.9-1.1) Sodium (136-145) mmol/L Potassium (3.5-5.1) mmol/L Chloride (98-107) mmol/L Carbon Dioxide (21-32) mmol/L Anion Gap (3-11) BUN (7-18) mg/dl Creatinine (0.6-1.2) mg/dl Est Cr Clr Drug Dosing ml/min Est GFR ( Amer) Est GFR (Non-Af Amer) BUN/Creatinine Ratio (10-20) Glucose (70-99) mg/dl POC Glucose 174 H (70-99) mg/dl Estimat Average Glucose 105 Hemoglobin A1c 5.3 POC Lactic Acid Cem (0.90-1.70) mmol/L Lactate (0.4-2.0) mmol/L Calcium (8.5-10.1) mg/dl Phosphorus (2.5-4.9) mg/dl Magnesium (1.8-2.4) mg/dl Total Bilirubin (0.2-1) mg/dl Direct Bilirubin (0-0.2) mg/dl AST (15-37) U/L ALT (12-78) U/L Alkaline Phosphatase (45-117) U/L Ammonia (11-32) umol/L Troponin I (0-0.045) ng/ml NT-Pro-B Natriuret Pep (0-1800) pg/ml Total Protein (6.4-8.2) gm/dl Albumin (3.4-5.0) gm/dl Globulin (2.5-4.0) gm/dl Albumin/Globulin Ratio (0.9-2) Lipase (73-393) U/L Urine Color Yellow Urine Appearance Clear (Clear) Urine pH 6.0 (4.5-7.5) Ur Specific [place] 1.029 (1.000-1.030) Urine Protein Negative (Negative) Urine Glucose (UA) Negative (Negative) Urine Ketones Negative (Negative) Urine Blood Trace H (Negative) Urine Nitrite Negative (Negative) Urine Bilirubin Negative (Negative) Urine Urobilinogen Negative (Negative) Ur Leukocyte Esterase Negative (Negative) Urine WBC (Auto) 1-5 (0-5) /hpf Urine RBC (Auto) 0-4 (0-4) /hpf U Hyaline Cast (Auto) 1-5 (0-5) /lpf U Epithel Cells (Auto) 10-20 H (0-5) /lpf Urine Bacteria (Auto) Negative (Negative) Nasal Screen MRSA (PCR) (Negative) Urine Opiates Screen (Neg) Ur Methadone, Qual (Neg) Acetaminophen (10-30) ug/ml Urine Barbiturates (Neg) Ur Phencyclidine (PCP) (Neg) U Amphetamin/Meth Scrn (Neg) MDMA (Ecstasy) Screen (Neg) U OH-Alprazolam Confrm U Benzodiazepines Scrn (Neg) 7-Amino Clonazepam Ur Nordiazepam Confirm U OH-ethylflurazepam U Lorazepam Cnf GC/MS U Oxazepam Confm GC/MS Ur Temazepam Confirm U OH-Triazolam Confirm U OH-Midazolam Confirm Ur Cocaine Metabolite (Neg) U Marijuana (THC) Screen (Neg) Drug Screen Comment Blood Type Antibody Screen 04/26/19 04/26/19 04/26/19 Range/Units 05:50 05:10 05:10 WBC 18.36 H Cancelled (4.8-10.8) K/uL RBC 2.21 L Cancelled (4.2-5.4) M/uL Hgb 7.8 L Cancelled (12.0-16.0) g/dL Hct 24.1 L Cancelled (37-47) % MCV 109.0 H Cancelled (80-100) fL MCH 35.3 H Cancelled (25-34) pg MCHC 32.4 Cancelled (32-36) g/dL RDW Std Deviation 58.9 H Cancelled (36.4-46.3) fL RDW Coeff of Mile 15.0 H Cancelled (11.5-14.5) % Plt Count 187 Cancelled (130-400) K/uL MPV 9.6 Cancelled (7.4-10.4) fL Immature Gran % (Auto) 0.4 Cancelled % Neut % (Auto) 71.6 Cancelled % Lymph % (Auto) 16.4 Cancelled % [place] % (Auto) 11.4 Cancelled % Eos % (Auto) 0.1 Cancelled % Baso % (Auto) 0.1 Cancelled % Immature Gran # (Auto) 0.08 H Cancelled (0.00-0.02) K/uL Neut # (Auto) 13.13 H Cancelled (1.4-6.5) K/uL Lymph # (Auto) 3.02 Cancelled (1.2-3.4) K/uL [place] # (Auto) 2.10 H Cancelled (0.11-0.59) K/uL Eos # (Auto) 0.01 Cancelled (0-0.5) K/uL Baso # (Auto) 0.02 Cancelled (0-0.2) K/uL Absolute Nucleated RBC Cancelled (0-0) K/uL Nucleated RBC % (auto) Cancelled % Neutrophils % (Manual) Cancelled Band Neutrophils % Cancelled Lymphocytes % (Manual) Cancelled Prolymphocyte % Cancelled Reactive Lymphs % (Man) Cancelled Monocytes % (Manual) Cancelled Eosinophils % (Manual) Cancelled Basophils % (Manual) Cancelled Metamyelocytes % (Man) Cancelled Myelocytes % (Man) Cancelled Promyelocytes % (Man) Cancelled Blast Cells % (Manual) Cancelled Plasma Cell % (Manual) Cancelled Other Cells % Cancelled Nucleated RBC % Cancelled Neutrophils # (Manual) Cancelled Band Neutrophils # Cancelled Total Absolute Neuts Cancelled Lymphocytes # (Manual) Cancelled Prolymphocyte # Cancelled Reactive Lymphs # Cancelled Total Abs Lymphocytes Cancelled Monocytes # (Manual) Cancelled Eosinophils # (Manual) Cancelled Basophils # (Manual) Cancelled Metamyelocytes # (Man) Cancelled Myelocytes # (Manual) Cancelled Promyelocytes # (Man) Cancelled Blast Cells # (Man) Cancelled Plasma Cell # (Manual) Cancelled Other Cells # Cancelled Nucleated RBCs # (Man) Cancelled Hypersegmented Neuts Cancelled Hyposegmented Neuts Cancelled Hypogranular Neuts Cancelled Large Granular Lymphs Cancelled # Lrg Granular Lymphs Cancelled Hairy Cells Cancelled Smudge Cells Cancelled Toxic Granulation Cancelled Toxic Vacuolation Cancelled Dohle Bodies Cancelled Charley Rods Cancelled Platelet Estimate Cancelled Hypogranular Platelets Cancelled Clumped Platelets Cancelled Giant Platelets Cancelled Platelet Satelliting Cancelled RBC Morphology Cancelled Polychromasia 1+ Cancelled Hypochromasia Cancelled Poikilocytosis Cancelled Basophilic Stippling Cancelled Anisocytosis Cancelled Microcytosis Cancelled Macrocytosis Cancelled Spherocytes Cancelled Pappenheimer Bodies Cancelled Sickle Cells Cancelled Target Cells Cancelled Tear Drop Cells Cancelled Ovalocytes Cancelled Stomatocytes Cancelled [place] Bodies Cancelled Echinocytes Cancelled Acanthocytes (Spur) Cancelled Rouleaux Cancelled RBC Agglutinates Cancelled Schistocytes Cancelled RBC Morph Comment Cancelled Sezary Cell Cancelled PT (9.0-12.0) Seconds INR (0.9-1.1) Sodium 146 H (136-145) mmol/L Potassium 3.8 D (3.5-5.1) mmol/L Chloride 120 H (98-107) mmol/L Carbon Dioxide 23 (21-32) mmol/L Anion Gap 3.0 (3-11) BUN 43 H (7-18) mg/dl Creatinine 0.93 (0.6-1.2) mg/dl Est Cr Clr Drug Dosing 59.1 ml/min Est GFR ( Amer) 69.2 Est GFR (Non-Af Amer) 59.7 BUN/Creatinine Ratio 45.6 H (10-20) Glucose 141 H (70-99) mg/dl POC Glucose (70-99) mg/dl Estimat Average Glucose Hemoglobin A1c POC Lactic Acid Cem (0.90-1.70) mmol/L Lactate (0.4-2.0) mmol/L Calcium 8.2 L (8.5-10.1) mg/dl Phosphorus 2.8 (2.5-4.9) mg/dl Magnesium 1.9 (1.8-2.4) mg/dl Total Bilirubin 0.5 (0.2-1) mg/dl Direct Bilirubin 0.1 (0-0.2) mg/dl AST 49 H (15-37) U/L ALT 43 (12-78) U/L Alkaline Phosphatase 50 (45-117) U/L Ammonia (11-32) umol/L Troponin I (0-0.045) ng/ml NT-Pro-B Natriuret Pep (0-1800) pg/ml Total Protein 6.0 L (6.4-8.2) gm/dl Albumin 2.6 L (3.4-5.0) gm/dl Globulin (2.5-4.0) gm/dl Albumin/Globulin Ratio (0.9-2) Lipase (73-393) U/L Urine Color Urine Appearance (Clear) Urine pH (4.5-7.5) Ur Specific [place] (1.000-1.030) Urine Protein (Negative) Urine Glucose (UA) (Negative) Urine Ketones (Negative) Urine Blood (Negative) Urine Nitrite (Negative) Urine Bilirubin (Negative) Urine Urobilinogen (Negative) Ur Leukocyte Esterase (Negative) Urine WBC (Auto) (0-5) /hpf Urine RBC (Auto) (0-4) /hpf U Hyaline Cast (Auto) (0-5) /lpf U Epithel Cells (Auto) (0-5) /lpf Urine Bacteria (Auto) (Negative) Nasal Screen MRSA (PCR) (Negative) Urine Opiates Screen (Neg) Ur Methadone, Qual (Neg) Acetaminophen (10-30) ug/ml Urine Barbiturates (Neg) Ur Phencyclidine (PCP) (Neg) U Amphetamin/Meth Scrn (Neg) MDMA (Ecstasy) Screen (Neg) U OH-Alprazolam Confrm U Benzodiazepines Scrn (Neg) 7-Amino Clonazepam Ur Nordiazepam Confirm U OH-ethylflurazepam U Lorazepam Cnf GC/MS U Oxazepam Confm GC/MS Ur Temazepam Confirm U OH-Triazolam Confirm U OH-Midazolam Confirm Ur Cocaine Metabolite (Neg) U Marijuana (THC) Screen (Neg) Drug Screen Comment Blood Type Antibody Screen 04/26/19 04/26/19 04/26/19 Range/Units 05:10 05:10 05:10 WBC (4.8-10.8) K/uL RBC (4.2-5.4) M/uL Hgb (12.0-16.0) g/dL Hct (37-47) % MCV (80-100) fL MCH (25-34) pg MCHC (32-36) g/dL RDW Std Deviation (36.4-46.3) fL RDW Coeff of Mile (11.5-14.5) % Plt Count (130-400) K/uL MPV (7.4-10.4) fL Immature Gran % (Auto) % Neut % (Auto) % Lymph % (Auto) % [place] % (Auto) % Eos % (Auto) % Baso % (Auto) % Immature Gran # (Auto) (0.00-0.02) K/uL Neut # (Auto) (1.4-6.5) K/uL Lymph # (Auto) (1.2-3.4) K/uL [place] # (Auto) (0.11-0.59) K/uL Eos # (Auto) (0-0.5) K/uL Baso # (Auto) (0-0.2) K/uL Absolute Nucleated RBC (0-0) K/uL Nucleated RBC % (auto) % Neutrophils % (Manual) Band Neutrophils % Lymphocytes % (Manual) Prolymphocyte % Reactive Lymphs % (Man) Monocytes % (Manual) Eosinophils % (Manual) Basophils % (Manual) Metamyelocytes % (Man) Myelocytes % (Man) Promyelocytes % (Man) Blast Cells % (Manual) Plasma Cell % (Manual) Other Cells % Nucleated RBC % Neutrophils # (Manual) Band Neutrophils # Total Absolute Neuts Lymphocytes # (Manual) Prolymphocyte # Reactive Lymphs # Total Abs Lymphocytes Monocytes # (Manual) Eosinophils # (Manual) Basophils # (Manual) Metamyelocytes # (Man) Myelocytes # (Manual) Promyelocytes # (Man) Blast Cells # (Man) Plasma Cell # (Manual) Other Cells # Nucleated RBCs # (Man) Hypersegmented Neuts Hyposegmented Neuts Hypogranular Neuts Large Granular Lymphs # Lrg Granular Lymphs Hairy Cells Smudge Cells Toxic Granulation Toxic Vacuolation Dohle Bodies Charley Rods Platelet Estimate Hypogranular Platelets Clumped Platelets Giant Platelets Platelet Satelliting RBC Morphology Polychromasia Hypochromasia Poikilocytosis Basophilic Stippling Anisocytosis Microcytosis Macrocytosis Spherocytes Pappenheimer Bodies Sickle Cells Target Cells Tear Drop Cells Ovalocytes Stomatocytes [place] Bodies Echinocytes Acanthocytes (Spur) Rouleaux RBC Agglutinates Schistocytes RBC Morph Comment Sezary Cell PT (9.0-12.0) Seconds INR (0.9-1.1) Sodium (136-145) mmol/L Potassium (3.5-5.1) mmol/L Chloride (98-107) mmol/L Carbon Dioxide (21-32) mmol/L Anion Gap (3-11) BUN (7-18) mg/dl Creatinine (0.6-1.2) mg/dl Est Cr Clr Drug Dosing ml/min Est GFR ( Amer) Est GFR (Non-Af Amer) BUN/Creatinine Ratio (10-20) Glucose (70-99) mg/dl POC Glucose (70-99) mg/dl Estimat Average Glucose Cancelled Hemoglobin A1c Cancelled POC Lactic Acid Cem (0.90-1.70) mmol/L Lactate 3.6 H* (0.4-2.0) mmol/L Calcium (8.5-10.1) mg/dl Phosphorus (2.5-4.9) mg/dl Magnesium (1.8-2.4) mg/dl Total Bilirubin (0.2-1) mg/dl Direct Bilirubin (0-0.2) mg/dl AST (15-37) U/L ALT (12-78) U/L Alkaline Phosphatase (45-117) U/L Ammonia 85.0 H (11-32) umol/L Troponin I (0-0.045) ng/ml NT-Pro-B Natriuret Pep (0-1800) pg/ml Total Protein (6.4-8.2) gm/dl Albumin (3.4-5.0) gm/dl Globulin (2.5-4.0) gm/dl Albumin/Globulin Ratio (0.9-2) Lipase (73-393) U/L Urine Color Urine Appearance (Clear) Urine pH (4.5-7.5) Ur Specific [place] (1.000-1.030) Urine Protein (Negative) Urine Glucose (UA) (Negative) Urine Ketones (Negative) Urine Blood (Negative) Urine Nitrite (Negative) Urine Bilirubin (Negative) Urine Urobilinogen (Negative) Ur Leukocyte Esterase (Negative) Urine WBC (Auto) (0-5) /hpf Urine RBC (Auto) (0-4) /hpf U Hyaline Cast (Auto) (0-5) /lpf U Epithel Cells (Auto) (0-5) /lpf Urine Bacteria (Auto) (Negative) Nasal Screen MRSA (PCR) (Negative) Urine Opiates Screen (Neg) Ur Methadone, Qual (Neg) Acetaminophen (10-30) ug/ml Urine Barbiturates (Neg) Ur Phencyclidine (PCP) (Neg) U Amphetamin/Meth Scrn (Neg) MDMA (Ecstasy) Screen (Neg) U OH-Alprazolam Confrm U Benzodiazepines Scrn (Neg) 7-Amino Clonazepam Ur Nordiazepam Confirm U OH-ethylflurazepam U Lorazepam Cnf GC/MS U Oxazepam Confm GC/MS Ur Temazepam Confirm U OH-Triazolam Confirm U OH-Midazolam Confirm Ur Cocaine Metabolite (Neg) U Marijuana (THC) Screen (Neg) Drug Screen Comment Blood Type Antibody Screen 04/26/19 04/26/19 04/26/19 Range/Units 00:22 00:16 00:16 WBC 19.57 H (4.8-10.8) K/uL RBC 2.19 L (4.2-5.4) M/uL Hgb 7.9 L 7.9 L (12.0-16.0) g/dL Hct 23.8 L 23.8 L (37-47) % MCV 108.7 H (80-100) fL MCH 36.1 H (25-34) pg MCHC 33.2 (32-36) g/dL RDW Std Deviation 58.5 H (36.4-46.3) fL RDW Coeff of Mile 14.8 H (11.5-14.5) % Plt Count 195 (130-400) K/uL MPV 9.9 (7.4-10.4) fL Immature Gran % (Auto) 0.5 % Neut % (Auto) 73.2 % Lymph % (Auto) 14.9 % [place] % (Auto) 11.2 % Eos % (Auto) 0.1 % Baso % (Auto) 0.1 % Immature Gran # (Auto) 0.09 H (0.00-0.02) K/uL Neut # (Auto) 14.34 H (1.4-6.5) K/uL Lymph # (Auto) 2.91 (1.2-3.4) K/uL [place] # (Auto) 2.20 H (0.11-0.59) K/uL Eos # (Auto) 0.01 (0-0.5) K/uL Baso # (Auto) 0.02 (0-0.2) K/uL Absolute Nucleated RBC (0-0) K/uL Nucleated RBC % (auto) % Neutrophils % (Manual) Band Neutrophils % Lymphocytes % (Manual) Prolymphocyte % Reactive Lymphs % (Man) Monocytes % (Manual) Eosinophils % (Manual) Basophils % (Manual) Metamyelocytes % (Man) Myelocytes % (Man) Promyelocytes % (Man) Blast Cells % (Manual) Plasma Cell % (Manual) Other Cells % Nucleated RBC % Neutrophils # (Manual) Band Neutrophils # Total Absolute Neuts Lymphocytes # (Manual) Prolymphocyte # Reactive Lymphs # Total Abs Lymphocytes Monocytes # (Manual) Eosinophils # (Manual) Basophils # (Manual) Metamyelocytes # (Man) Myelocytes # (Manual) Promyelocytes # (Man) Blast Cells # (Man) Plasma Cell # (Manual) Other Cells # Nucleated RBCs # (Man) Hypersegmented Neuts Hyposegmented Neuts Hypogranular Neuts Large Granular Lymphs # Lrg Granular Lymphs Hairy Cells Smudge Cells Toxic Granulation Toxic Vacuolation Dohle Bodies Charley Rods Platelet Estimate Hypogranular Platelets Clumped Platelets Giant Platelets Platelet Satelliting RBC Morphology Polychromasia 1+ Hypochromasia Poikilocytosis Basophilic Stippling Anisocytosis Microcytosis Macrocytosis Spherocytes Pappenheimer Bodies Sickle Cells Target Cells Tear Drop Cells Ovalocytes Stomatocytes [place] Bodies Echinocytes Acanthocytes (Spur) Rouleaux RBC Agglutinates Schistocytes RBC Morph Comment Sezary Cell PT (9.0-12.0) Seconds INR (0.9-1.1) Sodium (136-145) mmol/L Potassium (3.5-5.1) mmol/L Chloride (98-107) mmol/L Carbon Dioxide (21-32) mmol/L Anion Gap (3-11) BUN (7-18) mg/dl Creatinine (0.6-1.2) mg/dl Est Cr Clr Drug Dosing ml/min Est GFR ( Amer) Est GFR (Non-Af Amer) BUN/Creatinine Ratio (10-20) Glucose (70-99) mg/dl POC Glucose (70-99) mg/dl Estimat Average Glucose Hemoglobin A1c POC Lactic Acid Cem (0.90-1.70) mmol/L Lactate 4.5 H* (0.4-2.0) mmol/L Calcium (8.5-10.1) mg/dl Phosphorus (2.5-4.9) mg/dl Magnesium (1.8-2.4) mg/dl Total Bilirubin (0.2-1) mg/dl Direct Bilirubin (0-0.2) mg/dl AST (15-37) U/L ALT (12-78) U/L Alkaline Phosphatase (45-117) U/L Ammonia (11-32) umol/L Troponin I (0-0.045) ng/ml NT-Pro-B Natriuret Pep (0-1800) pg/ml Total Protein (6.4-8.2) gm/dl Albumin (3.4-5.0) gm/dl Globulin (2.5-4.0) gm/dl Albumin/Globulin Ratio (0.9-2) Lipase (73-393) U/L Urine Color Urine Appearance (Clear) Urine pH (4.5-7.5) Ur Specific [place] (1.000-1.030) Urine Protein (Negative) Urine Glucose (UA) (Negative) Urine Ketones (Negative) Urine Blood (Negative) Urine Nitrite (Negative) Urine Bilirubin (Negative) Urine Urobilinogen (Negative) Ur Leukocyte Esterase (Negative) Urine WBC (Auto) (0-5) /hpf Urine RBC (Auto) (0-4) /hpf U Hyaline Cast (Auto) (0-5) /lpf U Epithel Cells (Auto) (0-5) /lpf Urine Bacteria (Auto) (Negative) Nasal Screen MRSA (PCR) (Negative) Urine Opiates Screen (Neg) Ur Methadone, Qual (Neg) Acetaminophen (10-30) ug/ml Urine Barbiturates (Neg) Ur Phencyclidine (PCP) (Neg) U Amphetamin/Meth Scrn (Neg) MDMA (Ecstasy) Screen (Neg) U OH-Alprazolam Confrm U Benzodiazepines Scrn (Neg) 7-Amino Clonazepam Ur Nordiazepam Confirm U OH-ethylflurazepam U Lorazepam Cnf GC/MS U Oxazepam Confm GC/MS Ur Temazepam Confirm U OH-Triazolam Confirm U OH-Midazolam Confirm Ur Cocaine Metabolite (Neg) U Marijuana (THC) Screen (Neg) Drug Screen Comment Blood Type Antibody Screen 04/26/19 04/25/19 04/25/19 Range/Units 00:03 22:30 18:30 WBC (4.8-10.8) K/uL RBC (4.2-5.4) M/uL Hgb (12.0-16.0) g/dL Hct (37-47) % MCV (80-100) fL MCH (25-34) pg MCHC (32-36) g/dL RDW Std Deviation (36.4-46.3) fL RDW Coeff of Mile (11.5-14.5) % Plt Count (130-400) K/uL MPV (7.4-10.4) fL Immature Gran % (Auto) % Neut % (Auto) % Lymph % (Auto) % [place] % (Auto) % Eos % (Auto) % Baso % (Auto) % Immature Gran # (Auto) (0.00-0.02) K/uL Neut # (Auto) (1.4-6.5) K/uL Lymph # (Auto) (1.2-3.4) K/uL [place] # (Auto) (0.11-0.59) K/uL Eos # (Auto) (0-0.5) K/uL Baso # (Auto) (0-0.2) K/uL Absolute Nucleated RBC (0-0) K/uL Nucleated RBC % (auto) % Neutrophils % (Manual) Band Neutrophils % Lymphocytes % (Manual) Prolymphocyte % Reactive Lymphs % (Man) Monocytes % (Manual) Eosinophils % (Manual) Basophils % (Manual) Metamyelocytes % (Man) Myelocytes % (Man) Promyelocytes % (Man) Blast Cells % (Manual) Plasma Cell % (Manual) Other Cells % Nucleated RBC % Neutrophils # (Manual) Band Neutrophils # Total Absolute Neuts Lymphocytes # (Manual) Prolymphocyte # Reactive Lymphs # Total Abs Lymphocytes Monocytes # (Manual) Eosinophils # (Manual) Basophils # (Manual) Metamyelocytes # (Man) Myelocytes # (Manual) Promyelocytes # (Man) Blast Cells # (Man) Plasma Cell # (Manual) Other Cells # Nucleated RBCs # (Man) Hypersegmented Neuts Hyposegmented Neuts Hypogranular Neuts Large Granular Lymphs # Lrg Granular Lymphs Hairy Cells Smudge Cells Toxic Granulation Toxic Vacuolation Dohle Bodies Charley Rods Platelet Estimate Hypogranular Platelets Clumped Platelets Giant Platelets Platelet Satelliting RBC Morphology Polychromasia Hypochromasia Poikilocytosis Basophilic Stippling Anisocytosis Microcytosis Macrocytosis Spherocytes Pappenheimer Bodies Sickle Cells Target Cells Tear Drop Cells Ovalocytes Stomatocytes [place] Bodies Echinocytes Acanthocytes (Spur) Rouleaux RBC Agglutinates Schistocytes RBC Morph Comment Sezary Cell PT (9.0-12.0) Seconds INR (0.9-1.1) Sodium (136-145) mmol/L Potassium (3.5-5.1) mmol/L Chloride (98-107) mmol/L Carbon Dioxide (21-32) mmol/L Anion Gap (3-11) BUN (7-18) mg/dl Creatinine (0.6-1.2) mg/dl Est Cr Clr Drug Dosing ml/min Est GFR ( Amer) Est GFR (Non-Af Amer) BUN/Creatinine Ratio (10-20) Glucose (70-99) mg/dl POC Glucose 215 H (70-99) mg/dl Estimat Average Glucose Hemoglobin A1c POC Lactic Acid Cem (0.90-1.70) mmol/L Lactate (0.4-2.0) mmol/L Calcium (8.5-10.1) mg/dl Phosphorus (2.5-4.9) mg/dl Magnesium (1.8-2.4) mg/dl Total Bilirubin (0.2-1) mg/dl Direct Bilirubin (0-0.2) mg/dl AST (15-37) U/L ALT (12-78) U/L Alkaline Phosphatase (45-117) U/L Ammonia (11-32) umol/L Troponin I 0.261 H* (0-0.045) ng/ml NT-Pro-B Natriuret Pep (0-1800) pg/ml Total Protein (6.4-8.2) gm/dl Albumin (3.4-5.0) gm/dl Globulin (2.5-4.0) gm/dl Albumin/Globulin Ratio (0.9-2) Lipase (73-393) U/L Urine Color Urine Appearance (Clear) Urine pH (4.5-7.5) Ur Specific [place] (1.000-1.030) Urine Protein (Negative) Urine Glucose (UA) (Negative) Urine Ketones (Negative) Urine Blood (Negative) Urine Nitrite (Negative) Urine Bilirubin (Negative) Urine Urobilinogen (Negative) Ur Leukocyte Esterase (Negative) Urine WBC (Auto) (0-5) /hpf Urine RBC (Auto) (0-4) /hpf U Hyaline Cast (Auto) (0-5) /lpf U Epithel Cells (Auto) (0-5) /lpf Urine Bacteria (Auto) (Negative) Nasal Screen MRSA (PCR) (Negative) Urine Opiates Screen (Neg) Ur Methadone, Qual (Neg) Acetaminophen (10-30) ug/ml Urine Barbiturates (Neg) Ur Phencyclidine (PCP) (Neg) U Amphetamin/Meth Scrn (Neg) MDMA (Ecstasy) Screen (Neg) U OH-Alprazolam Confrm Pending U Benzodiazepines Scrn (Neg) 7-Amino Clonazepam Pending Ur Nordiazepam Confirm Pending U OH-ethylflurazepam Pending U Lorazepam Cnf GC/MS Pending U Oxazepam Confm GC/MS Pending Ur Temazepam Confirm Pending U OH-Triazolam Confirm Pending U OH-Midazolam Confirm Pending Ur Cocaine Metabolite (Neg) U Marijuana (THC) Screen (Neg) Drug Screen Comment Pending Blood Type Antibody Screen 04/25/19 04/25/19 04/25/19 Range/Units 18:30 17:55 17:12 WBC (4.8-10.8) K/uL RBC (4.2-5.4) M/uL Hgb 9.0 L (12.0-16.0) g/dL Hct 27.6 L (37-47) % MCV (80-100) fL MCH (25-34) pg MCHC (32-36) g/dL RDW Std Deviation (36.4-46.3) fL RDW Coeff of Mile (11.5-14.5) % Plt Count (130-400) K/uL MPV (7.4-10.4) fL Immature Gran % (Auto) % Neut % (Auto) % Lymph % (Auto) % [place] % (Auto) % Eos % (Auto) % Baso % (Auto) % Immature Gran # (Auto) (0.00-0.02) K/uL Neut # (Auto) (1.4-6.5) K/uL Lymph # (Auto) (1.2-3.4) K/uL [place] # (Auto) (0.11-0.59) K/uL Eos # (Auto) (0-0.5) K/uL Baso # (Auto) (0-0.2) K/uL Absolute Nucleated RBC (0-0) K/uL Nucleated RBC % (auto) % Neutrophils % (Manual) Band Neutrophils % Lymphocytes % (Manual) Prolymphocyte % Reactive Lymphs % (Man) Monocytes % (Manual) Eosinophils % (Manual) Basophils % (Manual) Metamyelocytes % (Man) Myelocytes % (Man) Promyelocytes % (Man) Blast Cells % (Manual) Plasma Cell % (Manual) Other Cells % Nucleated RBC % Neutrophils # (Manual) Band Neutrophils # Total Absolute Neuts Lymphocytes # (Manual) Prolymphocyte # Reactive Lymphs # Total Abs Lymphocytes Monocytes # (Manual) Eosinophils # (Manual) Basophils # (Manual) Metamyelocytes # (Man) Myelocytes # (Manual) Promyelocytes # (Man) Blast Cells # (Man) Plasma Cell # (Manual) Other Cells # Nucleated RBCs # (Man) Hypersegmented Neuts Hyposegmented Neuts Hypogranular Neuts Large Granular Lymphs # Lrg Granular Lymphs Hairy Cells Smudge Cells Toxic Granulation Toxic Vacuolation Dohle Bodies Charley Rods Platelet Estimate Hypogranular Platelets Clumped Platelets Giant Platelets Platelet Satelliting RBC Morphology Polychromasia Hypochromasia Poikilocytosis Basophilic Stippling Anisocytosis Microcytosis Macrocytosis Spherocytes Pappenheimer Bodies Sickle Cells Target Cells Tear Drop Cells Ovalocytes Stomatocytes [place] [facility] Bodies Echinocytes Acanthocytes (Spur) Rouleaux RBC Agglutinates Schistocytes RBC Morph Comment Sezary Cell PT (9.0-12.0) Seconds INR (0.9-1.1) Sodium (136-145) mmol/L Potassium (3.5-5.1) mmol/L Chloride (98-107) mmol/L Carbon Dioxide (21-32) mmol/L Anion Gap (3-11) BUN (7-18) mg/dl Creatinine (0.6-1.2) mg/dl Est Cr Clr Drug Dosing ml/min Est GFR ( Amer) Est GFR (Non-Af Amer) BUN/Creatinine Ratio (10-20) Glucose (70-99) mg/dl POC Glucose 190 H (70-99) mg/dl Estimat Average Glucose Hemoglobin A1c POC Lactic Acid Cem (0.90-1.70) mmol/L Lactate (0.4-2.0) mmol/L Calcium (8.5-10.1) mg/dl Phosphorus (2.5-4.9) mg/dl Magnesium (1.8-2.4) mg/dl Total Bilirubin (0.2-1) mg/dl Direct Bilirubin (0-0.2) mg/dl AST (15-37) U/L ALT (12-78) U/L Alkaline Phosphatase (45-117) U/L Ammonia (11-32) umol/L Troponin I (0-0.045) ng/ml NT-Pro-B Natriuret Pep (0-1800) pg/ml Total Protein (6.4-8.2) gm/dl Albumin (3.4-5.0) gm/dl Globulin (2.5-4.0) gm/dl Albumin/Globulin Ratio (0.9-2) Lipase (73-393) U/L Urine Color Urine Appearance (Clear) Urine pH (4.5-7.5) Ur Specific [place] (1.000-1.030) Urine Protein (Negative) Urine Glucose (UA) (Negative) Urine Ketones (Negative) Urine Blood (Negative) Urine Nitrite (Negative) Urine Bilirubin (Negative) Urine Urobilinogen (Negative) Ur Leukocyte Esterase (Negative) Urine WBC (Auto) (0-5) /hpf Urine RBC (Auto) (0-4) /hpf U Hyaline Cast (Auto) (0-5) /lpf U Epithel Cells (Auto) (0-5) /lpf Urine Bacteria (Auto) (Negative) Nasal Screen MRSA (PCR) (Negative) Urine Opiates Screen Neg (Neg) Ur Methadone, Qual Neg (Neg) Acetaminophen (10-30) ug/ml Urine Barbiturates Neg (Neg) Ur Phencyclidine (PCP) Neg (Neg) U Amphetamin/Meth Scrn Neg (Neg) MDMA (Ecstasy) Screen Neg (Neg) U OH-Alprazolam Confrm U Benzodiazepines Scrn Pos H (Neg) 7-Amino Clonazepam Ur Nordiazepam Confirm U OH-ethylflurazepam U Lorazepam Cnf GC/MS U Oxazepam Confm GC/MS Ur Temazepam Confirm U OH-Triazolam Confirm U OH-Midazolam Confirm Ur Cocaine Metabolite Neg (Neg) U Marijuana (THC) Screen Neg (Neg) Drug Screen Comment Blood Type Antibody Screen 04/25/19 04/25/19 04/25/19 Range/Units 17:12 17:12 15:05 WBC (4.8-10.8) K/uL RBC (4.2-5.4) M/uL Hgb (12.0-16.0) g/dL Hct (37-47) % MCV (80-100) fL MCH (25-34) pg MCHC (32-36) g/dL RDW Std Deviation (36.4-46.3) fL RDW Coeff of Mile (11.5-14.5) % Plt Count (130-400) K/uL MPV (7.4-10.4) fL Immature Gran % (Auto) % Neut % (Auto) % Lymph % (Auto) % [place] % (Auto) % Eos % (Auto) % Baso % (Auto) % Immature Gran # (Auto) (0.00-0.02) K/uL Neut # (Auto) (1.4-6.5) K/uL Lymph # (Auto) (1.2-3.4) K/uL [place] # (Auto) (0.11-0.59) K/uL Eos # (Auto) (0-0.5) K/uL Baso # (Auto) (0-0.2) K/uL Absolute Nucleated RBC (0-0) K/uL Nucleated RBC % (auto) % Neutrophils % (Manual) Band Neutrophils % Lymphocytes % (Manual) Prolymphocyte % Reactive Lymphs % (Man) Monocytes % (Manual) Eosinophils % (Manual) Basophils % (Manual) Metamyelocytes % (Man) Myelocytes % (Man) Promyelocytes % (Man) Blast Cells % (Manual) Plasma Cell % (Manual) Other Cells % Nucleated RBC % Neutrophils # (Manual) Band Neutrophils # Total Absolute Neuts Lymphocytes # (Manual) Prolymphocyte # Reactive Lymphs # Total Abs Lymphocytes Monocytes # (Manual) Eosinophils # (Manual) Basophils # (Manual) Metamyelocytes # (Man) Myelocytes # (Manual) Promyelocytes # (Man) Blast Cells # (Man) Plasma Cell # (Manual) Other Cells # Nucleated RBCs # (Man) Hypersegmented Neuts Hyposegmented Neuts Hypogranular Neuts Large Granular Lymphs # Lrg Granular Lymphs Hairy Cells Smudge Cells Toxic Granulation Toxic Vacuolation Dohle Bodies Charley Rods Platelet Estimate Hypogranular Platelets Clumped Platelets Giant Platelets Platelet Satelliting RBC Morphology Polychromasia Hypochromasia Poikilocytosis Basophilic Stippling Anisocytosis Microcytosis Macrocytosis Spherocytes Pappenheimer Bodies Sickle Cells Target Cells Tear Drop Cells Ovalocytes Stomatocytes [place] [facility] Bodies Echinocytes Acanthocytes (Spur) Rouleaux RBC Agglutinates Schistocytes RBC Morph Comment Sezary Cell PT (9.0-12.0) Seconds INR (0.9-1.1) Sodium (136-145) mmol/L Potassium (3.5-5.1) mmol/L Chloride (98-107) mmol/L Carbon Dioxide (21-32) mmol/L Anion Gap (3-11) BUN (7-18) mg/dl Creatinine (0.6-1.2) mg/dl Est Cr Clr Drug Dosing ml/min Est GFR ( Amer) Est GFR (Non-Af Amer) BUN/Creatinine Ratio (10-20) Glucose (70-99) mg/dl POC Glucose (70-99) mg/dl Estimat Average Glucose Hemoglobin A1c POC Lactic Acid Cem (0.90-1.70) mmol/L Lactate (0.4-2.0) mmol/L Calcium (8.5-10.1) mg/dl Phosphorus (2.5-4.9) mg/dl Magnesium (1.8-2.4) mg/dl Total Bilirubin (0.2-1) mg/dl Direct Bilirubin (0-0.2) mg/dl AST (15-37) U/L ALT (12-78) U/L Alkaline Phosphatase (45-117) U/L Ammonia (11-32) umol/L Troponin I 0.274 H* (0-0.045) ng/ml NT-Pro-B Natriuret Pep (0-1800) pg/ml Total Protein (6.4-8.2) gm/dl Albumin (3.4-5.0) gm/dl Globulin (2.5-4.0) gm/dl Albumin/Globulin Ratio (0.9-2) Lipase (73-393) U/L Urine Color Urine Appearance (Clear) Urine pH (4.5-7.5) Ur Specific [place] (1.000-1.030) Urine Protein (Negative) Urine Glucose (UA) (Negative) Urine Ketones (Negative) Urine Blood (Negative) Urine Nitrite (Negative) Urine Bilirubin (Negative) Urine Urobilinogen (Negative) Ur Leukocyte Esterase (Negative) Urine WBC (Auto) (0-5) /hpf Urine RBC (Auto) (0-4) /hpf U Hyaline Cast (Auto) (0-5) /lpf U Epithel Cells (Auto) (0-5) /lpf Urine Bacteria (Auto) (Negative) Nasal Screen MRSA (PCR) Negative (Negative) Urine Opiates Screen (Neg) Ur Methadone, Qual (Neg) Acetaminophen < 2 L (10-30) ug/ml Urine Barbiturates (Neg) Ur Phencyclidine (PCP) (Neg) U Amphetamin/Meth Scrn (Neg) MDMA (Ecstasy) Screen (Neg) U OH-Alprazolam Confrm U Benzodiazepines Scrn (Neg) 7-Amino Clonazepam Ur Nordiazepam Confirm U OH-ethylflurazepam U Lorazepam Cnf GC/MS U Oxazepam Confm GC/MS Ur Temazepam Confirm U OH-Triazolam Confirm U OH-Midazolam Confirm Ur Cocaine Metabolite (Neg) U Marijuana (THC) Screen (Neg) Drug Screen Comment Blood Type Antibody Screen 04/25/19 04/25/19 04/25/19 Range/Units 14:25 12:25 12:23 WBC (4.8-10.8) K/uL RBC (4.2-5.4) M/uL Hgb (12.0-16.0) g/dL Hct (37-47) % MCV (80-100) fL MCH (25-34) pg MCHC (32-36) g/dL RDW Std Deviation (36.4-46.3) fL RDW Coeff of Mile (11.5-14.5) % Plt Count (130-400) K/uL MPV (7.4-10.4) fL Immature Gran % (Auto) % Neut % (Auto) % Lymph % (Auto) % [place] % (Auto) % Eos % (Auto) % Baso % (Auto) % Immature Gran # (Auto) (0.00-0.02) K/uL Neut # (Auto) (1.4-6.5) K/uL Lymph # (Auto) (1.2-3.4) K/uL [place] # (Auto) (0.11-0.59) K/uL Eos # (Auto) (0-0.5) K/uL Baso # (Auto) (0-0.2) K/uL Absolute Nucleated RBC (0-0) K/uL Nucleated RBC % (auto) % Neutrophils % (Manual) Band Neutrophils % Lymphocytes % (Manual) Prolymphocyte % Reactive Lymphs % (Man) Monocytes % (Manual) Eosinophils % (Manual) Basophils % (Manual) Metamyelocytes % (Man) Myelocytes % (Man) Promyelocytes % (Man) Blast Cells % (Manual) Plasma Cell % (Manual) Other Cells % Nucleated RBC % Neutrophils # (Manual) Band Neutrophils # Total Absolute Neuts Lymphocytes # (Manual) Prolymphocyte # Reactive Lymphs # Total Abs Lymphocytes Monocytes # (Manual) Eosinophils # (Manual) Basophils # (Manual) Metamyelocytes # (Man) Myelocytes # (Manual) Promyelocytes # (Man) Blast Cells # (Man) Plasma Cell # (Manual) Other Cells # Nucleated RBCs # (Man) Hypersegmented Neuts Hyposegmented Neuts Hypogranular Neuts Large Granular Lymphs # Lrg Granular Lymphs Hairy Cells Smudge Cells Toxic Granulation Toxic Vacuolation Dohle Bodies Charley Rods Platelet Estimate Hypogranular Platelets Clumped Platelets Giant Platelets Platelet Satelliting RBC Morphology Polychromasia Hypochromasia Poikilocytosis Basophilic Stippling Anisocytosis Microcytosis Macrocytosis Spherocytes Pappenheimer Bodies Sickle Cells Target Cells Tear Drop Cells Ovalocytes Stomatocytes [place] [facility] Bodies Echinocytes Acanthocytes (Spur) Rouleaux RBC Agglutinates Schistocytes RBC Morph Comment Sezary Cell PT 12.1 H (9.0-12.0) Seconds INR 1.2 H (0.9-1.1) Sodium (136-145) mmol/L Potassium (3.5-5.1) mmol/L Chloride (98-107) mmol/L Carbon Dioxide (21-32) mmol/L Anion Gap (3-11) BUN (7-18) mg/dl Creatinine (0.6-1.2) mg/dl Est Cr Clr Drug Dosing ml/min Est GFR ( Amer) Est GFR (Non-Af Amer) BUN/Creatinine Ratio (10-20) Glucose (70-99) mg/dl POC Glucose (70-99) mg/dl Estimat Average Glucose Hemoglobin A1c POC Lactic Acid Cem 5.45 H (0.90-1.70) mmol/L Lactate (0.4-2.0) mmol/L Calcium (8.5-10.1) mg/dl Phosphorus (2.5-4.9) mg/dl Magnesium (1.8-2.4) mg/dl Total Bilirubin (0.2-1) mg/dl Direct Bilirubin (0-0.2) mg/dl AST (15-37) U/L ALT (12-78) U/L Alkaline Phosphatase (45-117) U/L Ammonia 80.0 H (11-32) umol/L Troponin I (0-0.045) ng/ml NT-Pro-B Natriuret Pep (0-1800) pg/ml Total Protein (6.4-8.2) gm/dl Albumin (3.4-5.0) gm/dl Globulin (2.5-4.0) gm/dl Albumin/Globulin Ratio (0.9-2) Lipase (73-393) U/L Urine Color Urine Appearance (Clear) Urine pH (4.5-7.5) Ur Specific [place] (1.000-1.030) Urine Protein (Negative) Urine Glucose (UA) (Negative) Urine Ketones (Negative) Urine Blood (Negative) Urine Nitrite (Negative) Urine Bilirubin (Negative) Urine Urobilinogen (Negative) Ur Leukocyte Esterase (Negative) Urine WBC (Auto) (0-5) /hpf Urine RBC (Auto) (0-4) /hpf U Hyaline Cast (Auto) (0-5) /lpf U Epithel Cells (Auto) (0-5) /lpf Urine Bacteria (Auto) (Negative) Nasal Screen MRSA (PCR) (Negative) Urine Opiates Screen (Neg) Ur Methadone, Qual (Neg) Acetaminophen (10-30) ug/ml Urine Barbiturates (Neg) Ur Phencyclidine (PCP) (Neg) U Amphetamin/Meth Scrn (Neg) MDMA (Ecstasy) Screen (Neg) U OH-Alprazolam Confrm U Benzodiazepines Scrn (Neg) 7-Amino Clonazepam Ur Nordiazepam Confirm U OH-ethylflurazepam U Lorazepam Cnf GC/MS U Oxazepam Confm GC/MS Ur Temazepam Confirm U OH-Triazolam Confirm U OH-Midazolam Confirm Ur Cocaine Metabolite (Neg) U Marijuana (THC) Screen (Neg) Drug Screen Comment Blood Type Antibody Screen 04/25/19 04/25/19 04/25/19 Range/Units 12:11 11:31 11:31 WBC 19.37 H (4.8-10.8) K/uL RBC 2.72 L (4.2-5.4) M/uL Hgb 9.7 L (12.0-16.0) g/dL Hct 29.4 L (37-47) % MCV 108.1 H (80-100) fL MCH 35.7 H (25-34) pg MCHC 33.0 (32-36) g/dL RDW Std Deviation 54.9 H (36.4-46.3) fL RDW Coeff of Mile 14.1 (11.5-14.5) % Plt Count 236 (130-400) K/uL MPV 10.4 (7.4-10.4) fL Immature Gran % (Auto) 0.6 % Neut % (Auto) 80.7 % Lymph % (Auto) 13.4 % [place] % (Auto) 5.2 % Eos % (Auto) 0.0 % Baso % (Auto) 0.1 % Immature Gran # (Auto) 0.11 H (0.00-0.02) K/uL Neut # (Auto) 15.66 H (1.4-6.5) K/uL Lymph # (Auto) 2.59 (1.2-3.4) K/uL [place] # (Auto) 1.00 H (0.11-0.59) K/uL Eos # (Auto) 0.00 (0-0.5) K/uL Baso # (Auto) 0.01 (0-0.2) K/uL Absolute Nucleated RBC 0.02 H (0-0) K/uL Nucleated RBC % (auto) 0.1 % Neutrophils % (Manual) Band Neutrophils % Lymphocytes % (Manual) Prolymphocyte % Reactive Lymphs % (Man) Monocytes % (Manual) Eosinophils % (Manual) Basophils % (Manual) Metamyelocytes % (Man) Myelocytes % (Man) Promyelocytes % (Man) Blast Cells % (Manual) Plasma Cell % (Manual) Other Cells % Nucleated RBC % Neutrophils # (Manual) Band Neutrophils # Total Absolute Neuts Lymphocytes # (Manual) Prolymphocyte # Reactive Lymphs # Total Abs Lymphocytes Monocytes # (Manual) Eosinophils # (Manual) Basophils # (Manual) Metamyelocytes # (Man) Myelocytes # (Manual) Promyelocytes # (Man) Blast Cells # (Man) Plasma Cell # (Manual) Other Cells # Nucleated RBCs # (Man) Hypersegmented Neuts Hyposegmented Neuts Hypogranular Neuts Large Granular Lymphs # Lrg Granular Lymphs Hairy Cells Smudge Cells Toxic Granulation Toxic Vacuolation Dohle Bodies Charley Rods Platelet Estimate Hypogranular Platelets Clumped Platelets Giant Platelets Platelet Satelliting RBC Morphology Polychromasia Hypochromasia Poikilocytosis Basophilic Stippling Anisocytosis Microcytosis Macrocytosis Spherocytes Pappenheimer Bodies Sickle Cells Target Cells Tear Drop Cells Ovalocytes Stomatocytes [place] [facility] Bodies Echinocytes Acanthocytes (Spur) Rouleaux RBC Agglutinates Schistocytes RBC Morph Comment Sezary Cell PT (9.0-12.0) Seconds INR (0.9-1.1) Sodium 142 (136-145) mmol/L Potassium 4.8 (3.5-5.1) mmol/L Chloride 113 H (98-107) mmol/L Carbon Dioxide 21 (21-32) mmol/L Anion Gap 8.0 (3-11) BUN 81 H (7-18) mg/dl Creatinine 1.22 H (0.6-1.2) mg/dl Est Cr Clr Drug Dosing 48.4 ml/min Est GFR ( Amer) 49.8 Est GFR (Non-Af Amer) 43.0 BUN/Creatinine Ratio 66.6 H (10-20) Glucose 185 H (70-99) mg/dl POC Glucose (70-99) mg/dl Estimat Average Glucose Hemoglobin A1c POC Lactic Acid Cem (0.90-1.70) mmol/L Lactate (0.4-2.0) mmol/L Calcium 9.2 (8.5-10.1) mg/dl Phosphorus (2.5-4.9) mg/dl Magnesium 1.8 (1.8-2.4) mg/dl Total Bilirubin 0.5 (0.2-1) mg/dl Direct Bilirubin (0-0.2) mg/dl AST 53 H (15-37) U/L ALT 44 (12-78) U/L Alkaline Phosphatase 54 (45-117) U/L Ammonia (11-32) umol/L Troponin I 0.201 H* (0-0.045) ng/ml NT-Pro-B Natriuret Pep 667 (0-1800) pg/ml Total Protein 6.6 (6.4-8.2) gm/dl Albumin 2.7 L (3.4-5.0) gm/dl Globulin 3.9 (2.5-4.0) gm/dl Albumin/Globulin Ratio 0.7 L (0.9-2) Lipase 61 L (73-393) U/L Urine Color Urine Appearance (Clear) Urine pH (4.5-7.5) Ur Specific [place] (1.000-1.030) Urine Protein (Negative) Urine Glucose (UA) (Negative) Urine Ketones (Negative) Urine Blood (Negative) Urine Nitrite (Negative) Urine Bilirubin (Negative) Urine Urobilinogen (Negative) Ur Leukocyte Esterase (Negative) Urine WBC (Auto) (0-5) /hpf Urine RBC (Auto) (0-4) /hpf U Hyaline Cast (Auto) (0-5) /lpf U Epithel Cells (Auto) (0-5) /lpf Urine Bacteria (Auto) (Negative) Nasal Screen MRSA (PCR) (Negative) Urine Opiates Screen (Neg) Ur Methadone, Qual (Neg) Acetaminophen (10-30) ug/ml Urine Barbiturates (Neg) Ur Phencyclidine (PCP) (Neg) U Amphetamin/Meth Scrn (Neg) MDMA (Ecstasy) Screen (Neg) U OH-Alprazolam Confrm U Benzodiazepines Scrn (Neg) 7-Amino Clonazepam Ur Nordiazepam Confirm U OH-ethylflurazepam U Lorazepam Cnf GC/MS U Oxazepam Confm GC/MS Ur Temazepam Confirm U OH-Triazolam Confirm U OH-Midazolam Confirm Ur Cocaine Metabolite (Neg) U Marijuana (THC) Screen (Neg) Drug Screen Comment Blood Type A Positive Antibody Screen NEGATIVE Diagnostic Findings EGD 04/26/19 Impression: - Grade II esophageal varices. No stigmata of bleeding. - Portal hypertensive gastropathy. - No fresh or altered blood. - Normal examined duodenum. - No specimens collected. Recommendation: - No source of GI bleeding on the EGD. Had a colonoscopy in the recent past. Would do small bowel imaging. (1) Anemia Anemia type: unspecified type Qualified Code(s): D64.9 - Anemia, unspecified
--- NOTE | 2019-04-26 09:40 | Anesthesiology Consultation ---
Date of Service April 26, 2019 Assessment & Plan Chart Review Chart Review: Acceptable Risk for Surgery and Patient NOT seen in Pre Admission Testing Consults Requested none History Surgery Operation Date: 04/26/19 16:00 Proposed Procedures p Esophagogastroduodenoscopy Dr Klein - Caren Klein Height/Weight Height: 5 ft 3 in Weight: 101.6 kg Allergies Allergy/AdvReac Type Severity Reaction Status Date / Time aspirin AdvReac Intermediate advised Verified 04/16/19 09:49 not to take d/t cirrhosis and gi bleed cortisone AdvReac Intermediate "WEIRD Verified 04/16/19 09:49 FEELING NSAIDS (Non-Steroidal AdvReac Intermediate advised Verified 04/16/19 09:49 Anti-Inflamma not to take d/t cirrhosis and gi bleed Medications Home Medications Medication Instructions Recorded Confirmed Last Taken cholecalciferol (vitamin D3) 125 0 unit PO QAM #30 tab 08/17/18 04/25/19 1 05/21/18 mcg (5,000 unit) tablet blood sugar diagnostic #50 ea 09/07/18 04/16/19 Unknown polyethylene glycol 3350 17 0 g PO DAILY PRN 09/07/18 04/25/19 03/04/19 gram/dose oral powder cyanocobalamin (vitamin B-12) 0 mcg PO QAM 09/17/18 04/25/19 03/20/19 [Vitamin B-12] albuterol sulfate 0 mg INH Q4H PRN 01/02/19 04/25/19 Unknown albuterol sulfate 90 mcg/actuation 0 inh INH DIRECTED PRN 01/03/19 04/25/19 Unknown aerosol inhaler amlodipine [Norvasc] 5 mg PO QAM 02/04/19 04/25/19 03/20/19 furosemide [Lasix] 20 mg PO QAM 02/04/19 04/25/19 03/04/19 ondansetron 4 - 8 mg PO Q8 PRN 03/15/19 04/25/19 Unknown amitriptyline 25 mg tablet 25 mg PO HS #30 tab 03/26/19 04/25/19 Unknown carvedilol [Coreg] 25 mg PO BID 04/25/19 04/25/19 Unknown diclofenac sodium [Voltaren] 1 % TOPICAL Q4H PRN 04/25/19 04/25/19 Unknown ferrous sulfate [Iron (ferrous 325 mg PO BID 04/25/19 04/25/19 Unknown sulfate)] levothyroxine [Synthroid] 125 mcg PO QAM 04/25/19 04/25/19 Unknown meclizine [Dramamine Less Drowsy] 25 mg PO TID PRN 04/25/19 04/25/19 Unknown methocarbamol 500 mg PO Q8H PRN 04/25/19 04/25/19 Unknown metoclopramide HCl [Reglan] 5 mg PO BID PRN 04/25/19 04/25/19 Unknown oxycodone [Roxicodone] 5 mg PO Q8H PRN 04/25/19 04/25/19 Unknown pantoprazole [Protonix] 40 mg PO QAM 04/25/19 04/25/19 Unknown pramipexole 0 mg PO QPM PRN 04/25/19 04/25/19 Unknown prenat.vits,evelyn,yqw-pfec-qcrsy 0 tab PO DAILY 04/25/19 04/25/19 Unknown spironolactone [Aldactone] 25 mg PO BID 04/25/19 04/25/19 Unknown Active Medications Generic Name Dose Route Start Last Admin Trade Name Freq PRN Reason Stop Dose Admin Amitriptyline HCl 25 mg 04/25/19 21:00 04/25/19 21:17 Elavil PO 05/25/19 20:59 Not Given HS MONIQUE Lactulose 200 gm/ Sterile 0 gm 04/26/19 04:00 04/26/19 05:26 Water 700 ml/ BARCODE UT 05/26/19 03:59 200 gm IDENTIFIER 1 ea Q8H MONIQUE Administration Sodium Chloride 1,000 mls @ 200 mls/hr 04/25/19 11:00 04/26/19 09:16 Nss 1000ml IV 05/25/19 10:59 0 mls/hr .Q5H MOINQUE Infusion Pantoprazole Sodium 40 mg/ 100 mls @ 20 mls/hr 04/25/19 11:15 04/26/19 09:16 Dextrose IV 05/25/19 11:14 0 mls/hr Q5H MONIQUE Infusion Octreotide Acetate 500 mcg/ 105 mls @ 10.5 mls/hr 04/25/19 11:30 04/26/19 09:16 Sodium Chloride IV 05/25/19 11:29 0 mcg/hr .Q10H MONIQUE 0 mls/hr Infusion 50 MCG/HR Levothyroxine Sodium 62.5 mcg/ 3.125 mls @ 2 mls/min 04/26/19 09:00 04/26/19 08:47 Syringe IV 05/26/19 08:59 2 mls/min DAILY@0900 MONIQUE Administration Piperacillin Sod/Tazobactam 120 mls @ 28.75 mls/hr 04/26/19 06:00 04/26/19 07:25 Sod 4.5 gm/ Dextrose IV 04/28/19 05:59 28.8 mls/hr Q8H MONIQUE Infusion Protocol Insulin Aspart 0 units 04/25/19 18:00 04/26/19 06:51 Novolog Flexpen SC 05/25/19 16:29 1 units Q6 MONIQUE Administration Ioversol 95 ml 04/25/19 13:33 04/25/19 13:34 Optiray 320 100ml IV 04/29/19 13:32 95 ml ONCE PRN Administration Interaction Checking NPO Date Last Intake of Fluids: 04/25/19 Time Last Intake of Fluids: 04:00 Date Last Intake of Solids: 04/24/19 Time Last Intake of Solids: 17:00 Past Medical History Medical History Anemia Ascites usually happens q 6 weeks - follows with [facility] Asthma RARELY USES PRN INH Chronic back pain Chronic reflux esophagitis COPD (chronic obstructive pulmonary disease) Depression with anxiety Diabetes type 2, controlled Dyslipidemia Esophageal 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 ARAIZA; U/S EVERY 6 MONTHS for [facility] Microalbuminuria Osteoarthritis Spine and knee Osteoporosis Portal hypertension Restless legs syndrome Solitary pulmonary nodule PT REPORTS "SPOTS ON LUNGS" doenst follow with anyone Vitamin D deficiency Past Family History Family History Mother Family history of diabetes mellitus Stroke Daughter Family history of diabetes mellitus Father Pneumonia Past Surgical History Surgical History History of cholecystectomy History of colonoscopy W/ POLYPECTOMY History of esophagogastroduodenoscopy (EGD) History of hip surgery LT - [place] PRESENT History of left cataract extraction History of right cataract surgery History of surgery on extremity RLE - HARDWARE PRESENT History of tonsillectomy History of tooth extraction History of total abdominal hysterectomy and bilateral salpingo-oophorectomy Secondary to fibroid History of tubal ligation Social History Smoking Status: Current every day smoker tobacco type: cigarettes Smoking cigarettes per day: 20 Do You Dip or Chew Tobacco: No Hx Alcohol Use: No Hx Substance Use: No substance use type: does not use Substance Use Type Other:: oxycodone for back pain, 1 week prescription Last Used Substance: Hours (ago) Last Used Substance Other:: ?yesterday Physical Exam Vital Signs Last Vital Signs Temp 36.9 C 04/26/19 07:51 Pulse 100 H 04/26/19 09:34 Resp 22 04/26/19 09:34 BP 128/70 04/26/19 09:34 Pulse Ox 96 04/26/19 09:34 Testing Laboratory Results 04/26/19 05:50 04/26/19 05:10 PT 12.1 Seconds (9.0-12.0) H 04/25/19 14:25 INR 1.2 (0.9-1.1) H 04/25/19 14:25 Hemoglobin A1c 5.3 % (4.5-5.6) 04/26/19 05:50 Urine Color Yellow 04/26/19 Unknown Urine Appearance Clear (Clear) 04/26/19 Unknown Urine pH 6.0 (4.5-7.5) 04/26/19 Unknown Ur Specific [place] 1.029 (1.000-1.030) 04/26/19 Unknown Urine Protein Negative (Negative) 04/26/19 Unknown Urine Glucose (UA) Negative (Negative) 04/26/19 Unknown Urine Ketones Negative (Negative) 04/26/19 Unknown Urine Nitrite Negative (Negative) 04/26/19 Unknown Ur Leukocyte Esterase Negative (Negative) 04/26/19 Unknown Urine WBC (Auto) 1-5 /hpf (0-5) 04/26/19 Unknown Urine RBC (Auto) 0-4 /hpf (0-4) 04/26/19 Unknown U Hyaline Cast (Auto) 1-5 /lpf (0-5) 04/26/19 Unknown U Epithel Cells (Auto) 10-20 /lpf (0-5) H 04/26/19 Unknown Urine Bacteria (Auto) Negative (Negative) 04/26/19 Unknown Blood Type A Positive 04/25/19 11:31 Antibody Screen NEGATIVE 04/25/19 11:31 04/26/19 04/26/19 06:42 00:03 POC Glucose 174 H 215 H
--- NOTE | 2019-04-26 10:06 | History & Physical Report ---
Date of Service April 26, 2019 Assessment & Plan (1) Encephalopathy, hepatic: (2) Anemia: (3) Melena: EGD today History of Present Illness Chief Complaint: melena cirrhosis Primary Care Provider: Courtney Jules, melena cirrhosis Allergies Allergy/AdvReac Type Severity Reaction Status Date / Time aspirin AdvReac Intermediate advised Verified 04/16/19 09:49 not to take d/t cirrhosis and gi bleed cortisone AdvReac Intermediate "WEIRD Verified 04/16/19 09:49 FEELING NSAIDS (Non-Steroidal AdvReac Intermediate advised Verified 04/16/19 09:49 Anti-Inflamma not to take d/t cirrhosis and gi bleed Home Medications Home Medications Medication Instructions Recorded Confirmed Type cholecalciferol (vitamin D3) 125 0 unit PO QAM #30 tab 08/17/18 04/25/19 History mcg (5,000 unit) tablet blood sugar diagnostic #50 ea 09/07/18 04/16/19 Rx polyethylene glycol 3350 17 0 g PO DAILY PRN 09/07/18 04/25/19 History gram/dose oral powder cyanocobalamin (vitamin B-12) 0 mcg PO QAM 09/17/18 04/25/19 History [Vitamin B-12] albuterol sulfate 0 mg INH Q4H PRN 01/02/19 04/25/19 History albuterol sulfate 90 mcg/actuation 0 inh INH DIRECTED PRN 01/03/19 04/25/19 History aerosol inhaler amlodipine [Norvasc] 5 mg PO QAM 02/04/19 04/25/19 History furosemide [Lasix] 20 mg PO QAM 02/04/19 04/25/19 History ondansetron 4 - 8 mg PO Q8 PRN 03/15/19 04/25/19 History amitriptyline 25 mg tablet 25 mg PO HS #30 tab 03/26/19 04/25/19 Rx carvedilol [Coreg] 25 mg PO BID 04/25/19 04/25/19 History diclofenac sodium [Voltaren] 1 % TOPICAL Q4H PRN 04/25/19 04/25/19 History ferrous sulfate [Iron (ferrous 325 mg PO BID 04/25/19 04/25/19 History sulfate)] levothyroxine [Synthroid] 125 mcg PO QAM 04/25/19 04/25/19 History meclizine [Dramamine Less Drowsy] 25 mg PO TID PRN 04/25/19 04/25/19 History methocarbamol 500 mg PO Q8H PRN 04/25/19 04/25/19 History metoclopramide HCl [Reglan] 5 mg PO BID PRN 04/25/19 04/25/19 History oxycodone [Roxicodone] 5 mg PO Q8H PRN 04/25/19 04/25/19 History pantoprazole [Protonix] 40 mg PO QAM 04/25/19 04/25/19 History pramipexole 0 mg PO QPM PRN 04/25/19 04/25/19 History prenat.vits,evelyn,[id number]-[id number] 0 tab PO DAILY 04/25/19 04/25/19 History spironolactone [Aldactone] 25 mg PO BID 04/25/19 04/25/19 History Past Med/Surg History Medical History Anemia Ascites usually happens q 6 weeks - follows with [facility] Asthma RARELY USES PRN INH Chronic back pain Chronic reflux esophagitis COPD (chronic obstructive pulmonary disease) Depression with anxiety Diabetes type 2, controlled Dyslipidemia Esophageal 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 ARAIZA; U/S EVERY 6 MONTHS for HCC SURVEILLANCE Microalbuminuria Osteoarthritis Spine and knee Osteoporosis Portal hypertension Restless legs syndrome Solitary pulmonary nodule PT REPORTS "SPOTS ON LUNGS" doenst follow with anyone Vitamin D deficiency Surgical History History of cholecystectomy History of colonoscopy W/ POLYPECTOMY History of esophagogastroduodenoscopy (EGD) History of hip surgery LT - HARDWARE PRESENT History of left cataract extraction History of right cataract surgery History of surgery on extremity RLE - HARDWARE PRESENT History of tonsillectomy History of tooth extraction History of total abdominal hysterectomy and bilateral salpingo-oophorectomy Secondary to fibroid History of tubal ligation Family History Mother Family history of diabetes mellitus Stroke Daughter Family history of diabetes mellitus Father Pneumonia Social History (Updated 04/25/19 @ 14:46 by Shannan Valles DO) Preferred Language: Tunisian Communication Ability: Impaired Polysomnography Technologist Required: No Beliefs That Will Affect Care: None marital status: Current Living Situation: Alone current occupational status: retired Feels Safe at Home: Yes Smoking Status: Current every day smoker Tobacco Type: cigarettes ; Age Started Using Tobacco: 16 ; packs per day: 1 ; Cigarettes Per Day: 20 ; Second Hand Exposure: No ; Hx Alcohol Use: No Hx Substance Use: No caffeine: Yes Dental Care, Regularly: Yes Physical Activity Frequency: Does not Exercise Seatbelt Use: always Physical Exam Constitutional: WD/WN, vitals as above Respiratory: normal respiratory effort, lungs clear to auscultation Cardiovascular: RRR, no murmur, no edema Gastrointestinal (Abdomen): normal bowel sounds, soft, nontender, no hepatosplenomegaly Results & Data Vital Signs (Past 12 Hours) Vital Signs Temp Pulse Pulse Resp BP BP Pulse Ox 04/26/19 09:34 100 H 22 128/70 96 04/26/19 08:20 100 H 26 H 123/81 04/26/19 08:00 98 H 04/26/19 07:51 36.9 C 98 H 14 118/103 H 99 04/26/19 06:50 101 H 26 H 151/73 H 04/26/19 05:00 96 H 22 98 04/26/19 04:00 97 H 18 98 04/26/19 03:00 95 H 14 98 04/26/19 02:51 97 H 25 H 123/50 L 96 04/26/19 02:00 98 H 18 96 04/26/19 01:51 101 H 18 114/63 97 04/26/19 01:00 100 H 14 04/26/19 00:51 102 H 16 111/69 04/26/19 00:00 37.2 C 92 H 19 97 04/25/19 23:56 105 H 13 89/81 L 97 04/25/19 23:27 101 H 04/25/19 23:00 89 14 98 04/25/19 22:50 105 H 24 90/51 L 98 04/25/19 22:47 108 H 26 H 83/65 L 97 Code Status & VTE Plan VTE Prophylaxis Plan VTE Prophylaxis will be ordered: Yes (1) Anemia Anemia type: unspecified type Qualified Code(s): D64.9 - Anemia, unspecified
[2019-04-26] MEDS: UNIT DOSE COMPOUND PR SCH ×2 (10:28→13:06)
[2019-04-26] MEDS ORDERED: LIDOCAINE HCL 2% 2 ML VIAL/AMP(20MG/ML) INFIL ONE (10:29)
[2019-04-26] MEDS ORDERED: PROPOFOL IV EMULSION 10 MG/ML 20 ML VIAL IV ONE (10:29)
--- NOTE | 2019-04-26 10:39 | GI REPORT ---
Patient Name: Bernarda Lara Procedure Date: 04/26/2019 10:13 AM Date of : 1940 Admit Type: Inpatient Age: 78 Gender: Female Attending MD: Caren Klein DO Procedure: Upper GI endoscopy Providers: Caren Klein DO Referring MD: Shannan Valles Indications: Melena Medicines: Propofol per Anesthesia Complications: No immediate complications. Estimated blood loss: None. Estimated Blood Loss: Estimated blood loss: none. Procedure: Pre-Anesthesia Assessment: - Prior to the procedure, a History and Physical was performed, and patient medications, allergies and sensitivities were reviewed. The patient's tolerance of previous anesthesia was reviewed. - The risks and benefits of the procedure and the sedation options and risks were discussed with the patient. All questions were answered and informed consent was obtained. - Patient identification and proposed procedure were verified prior to the procedure by the physician and the nurse. The procedure was verified in the pre-procedure area in the procedure room. - Mental Status Examination: alert and oriented. Airway Examination: normal oropharyngeal airway and neck mobility. Respiratory Examination: clear to auscultation. CV Examination: normal. Abdominal Examination: bowel sounds present, abdomen soft and non-tender, no masses or organomegaly noted. - ASA Grade Assessment: IV - A patient with severe systemic disease that is a constant threat to life. After obtaining informed consent, the endoscope was passed under direct vision. Throughout the procedure, the patient's blood pressure, pulse, and oxygen saturations were monitored continuously. The Scope was introduced through the mouth, and advanced to the second part of duodenum. The upper GI endoscopy was accomplished without difficulty. The patient tolerated the procedure well. Findings: Grade II varices were found in the middle third of the esophagus and in the lower third of the esophagus. Moderate portal hypertensive gastropathy was found in the entire examined stomach. The examined duodenum was normal. Impression: - Grade II esophageal varices. No stigmata of bleeding. - Portal hypertensive gastropathy. - No fresh or altered blood. - Normal examined duodenum. - No specimens collected. Recommendation: - No source of GI bleeding on the EGD. Had a colonoscopy in the recent past. Would do small bowel imaging. - [facility] care. Caren Klein D.O. Caren Klein DO 04/26/2019 10:38:46 AM This report has been signed electronically. Note Initiated On: 04/26/2019 10:13 AM Number of Addenda: 0 I attest to the content of the Intraoperative Record and orders documented therein, exceptions below {[id number]}
--- NOTE | 2019-04-26 13:01 | Anesthesiology Progress Note ---
Date of Service April 26, 2019 Anesthesia Post Procedure Vital Signs Vital Signs: Temp Pulse Pulse Resp BP BP Pulse Ox 04/26/19 11:00 90 20 99/56 L 97 04/26/19 10:45 96 H 20 87/64 L 96 04/26/19 10:30 94 H 22 89/45 L 96 04/26/19 09:34 100 H 22 128/70 96 04/26/19 08:20 100 H 26 H 123/81 04/26/19 08:00 98 H 04/26/19 07:51 36.9 C 98 H 14 118/103 H 99 04/26/19 06:50 101 H 26 H 151/73 H 04/26/19 05:00 96 H 22 98 04/26/19 04:00 97 H 18 98 04/26/19 03:00 95 H 14 98 04/26/19 02:51 97 H 25 H 123/50 L 96 04/26/19 02:00 98 H 18 96 04/26/19 01:51 101 H 18 114/63 97 04/26/19 01:00 100 H 14 04/26/19 00:51 102 H 16 111/69 04/26/19 00:00 37.2 C 92 H 19 97 04/25/19 23:56 105 H 13 89/81 L 97 04/25/19 23:27 101 H 04/25/19 23:00 89 14 98 04/25/19 22:50 105 H 24 90/51 L 98 04/25/19 22:47 108 H 26 H 83/65 L 97 04/25/19 22:00 102 H 15 97 04/25/19 21:00 106 H 18 95 04/25/19 20:00 114 H 22 127/105 H 96 04/25/19 19:15 113 H 04/25/19 19:00 37.4 C 108 H 20 115/63 94 04/25/19 17:50 114 H 21 127/71 94 04/25/19 17:15 118 H 15 149/97 H 96 04/25/19 16:00 103 H 04/25/19 15:51 115 H 22 158/77 H 95 04/25/19 15:00 36.5 C 119 H 110 H 28 H 123/93 93 04/25/19 14:22 115 H 18 121/88 96 04/25/19 13:58 103 H 20 110/51 L 93 Transfer of Care Handoff Completed per policy Notes Mental Status: alert / awake / arousable Patient Amnestic to Procedure: Yes Nausea / Vomiting: adequately controlled Pain: adequately controlled Airway Patency, RR, SpO2: stable & adequate BP & HR: stable & adequate Hydration State: stable & adequate Anesthetic Complications: no major complications apparent and Pt Satisfied with anesthetic care
[2019-04-26] MEDS ORDERED: CONSULT PHARMACY STA (14:29)
--- NOTE | 2019-04-26 14:39 | Hospitalist Progress Note ---
Date of Service April 26, 2019 Assessment & Plan (1) GI (gastrointestinal bleed): Hx of same last year with question of varices GI planning for lactulose and monitoring for now Follows with Dr. Lehman Hb dropped to 7.8 will continue to monitor. Patient has signs of liver cirrhosis and portal hypertension. Had upper and lower scope which were negative. (2) AMS (altered mental status): due to hepatic encephalopath. on lactulose. (3) Elevated troponin: 0.20 on admission ECHO 04/18/19 was WNL EKG neg for acute (4) Hypertension: Holding home meds (5) Hypothyroidism: Convert to IV (6) Diabetes type 2, controlled: SSI PRN A1c pending (7) Depression with anxiety: Holding home meds (8) COPD (chronic obstructive pulmonary disease): continue home meds (9) Restless legs syndrome: Holding home meds (10) Dyslipidemia: Holding home meds (11) DVT prophylaxis: SCDs given GIB (12) Tobacco use disorder: 1ppd per family nicotine patch if withdrawal sx (13) Portal hypertension: as stated above. (14) Esophageal varices in cirrhosis: noted on EGD. 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 Given patient'sadvanced age, unlike to be a candidate for liver transplant. Consulted palliative care. (16) Encephalopathy, hepatic: on lactulose will transfer out of ICU. Subjective Patient appears less confused. She states she has no pain or discomfort. She denies any dark stools or blood in her stools. She states she is hungry. Review of Systems Review of Systems: All systems reviewed & are unremarkable except as noted in HPI & below Physical Exam Physical Exam: Constitutional: WD/WN, vitals as above Eyes: normal visual arellano by confrontation and + anicteric sclerae Neck: normal visual inspection and trachea midline Respiratory: normal respiratory effort, lungs clear to auscultation Cardiovascular: Rate/Rhythm: regular rate and regular rhythm Gastrointestinal (Abdomen): Inspection/Auscultation: abdomen not distended Percussion/Palpation: + abdomen tender and abdomen soft Musculoskeletal: Head/Neck/Chest: normocephalic and head atraumatic negative for edema, peripheral pulses intact Skin: no rashes, warm and dry Neurologic: awake and + confused Psychiatric: opens eyes to voice but does not answer questions Results & Data Vital Signs (Past 12 Hours) Vital Signs Temp Pulse Pulse Resp BP BP Pulse Ox 04/26/19 11:00 90 20 99/56 L 97 04/26/19 10:45 96 H 20 87/64 L 96 04/26/19 10:30 94 H 22 89/45 L 96 04/26/19 09:34 100 H 22 128/70 96 04/26/19 08:20 100 H 26 H 123/81 04/26/19 08:00 98 H 04/26/19 07:51 36.9 C 98 H 14 118/103 H 99 04/26/19 06:50 101 H 26 H 151/73 H 04/26/19 05:00 96 H 22 98 04/26/19 04:00 97 H 18 98 04/26/19 03:00 95 H 14 98 04/26/19 02:51 97 H 25 H 123/50 L 96 PG Care Time/CCT Total # of Minutes Spent Total Time Spent with Patient: Total time spent is greater than 50% in coordination of care (as documented) at patient's floor/unit and/or counseling patient: (1) GI (gastrointestinal bleed) GI bleed type/associated pathology: unspecified gastrointestinal hemorrhage type Qualified Code(s): K92.2 - Gastrointestinal hemorrhage, unspecified (2) AMS (altered mental status) Altered mental status type: unspecified Qualified Code(s): R41.82 - Altered mental status, unspecified
[2019-04-26] MEDS ORDERED: LACTULOSE SYRUP 30 GM/45 ML UDP PO SCH (14:45)
--- NOTE | 2019-04-26 15:32 | Palliative Care Consultation ---
Date of Consultation April 26, 2019 Assessment & Plan (1) Goals of care, counseling/discussion: -78 year old female patient with PMH COPD, GERD, GI bleed, ascites, esophageal varices, cirrhosis of the liver 2/2 SANTOS, obesity, and current smoker, presented to the hospital yesterday with altered mental status and dark stools. Hgb 9.7 with positive heme occult test. Ammonia 80. Patient had worsening mental status and was admitted to the ICU. Hgb dropped to 7.8 this morning and she went for an EGD. There was no obvious source of bleeding in EGD, so small bowel imaging is recommended. Ammonia 85 today and lactulose will be started. Patient's mental status is somewhat improving. Given patient's comorbidities and advanced liver disease, palliative care is consulted for supportive care and discuss patient's condition with her and family. -Met with patient, her daughter, son, and granddaughter, along with Dr. Salvador and medical student in room 110. Patient just underwent EGD. Her mental status is somewhat improved but still has periods of confusion. -Dr. Salvador gave extensive medical update to family including that patient's liver disease is now Class B. We discussed what end-stage liver cirrhosis looks like as well as potential for liver transplant. Patient's family very much so wants to continue on with full treatment and would be interested in following up with GI about possible liver transplant when/if patient is a candidate. -Patient is currently an every day smoker and lives alone. She has questionable compliance with medical regimen per the family. They state they will keep closer watch on her from now on. Patient also agrees that she wants to continue with f ull treatment and live as long as possible. -Patient is improving. We talked about the importance of lactulose-- patient and family understand. -Patient to remain full code and full treatment. -Palliative care will follow peripherally throughout hospitalization. 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 Hgb 9.7 with positive heme occult test. Ammonia 80. Patient had worsening mental status and was admitted to the ICU. Hgb dropped to 7.8 this morning and she went for an EGD. There was no obvious source of bleeding in EGD, so small bowel imaging is recommended. Ammonia 85 today and lactulose will be started. Patient's mental status is somewhat improving. Given patient's comorbidities and advanced liver disease, palliative care is consulted for supportive care and discuss patient's condition with her and family. Thank you kindly for this consult. Allergies Allergy/AdvReac Type Severity Reaction Status Date / Time aspirin AdvReac Intermediate advised Verified 04/16/19 09:49 not to take d/t cirrhosis and gi bleed cortisone AdvReac Intermediate "WEIRD Verified 04/16/19 09:49 FEELING NSAIDS (Non-Steroidal AdvReac Intermediate advised Verified 04/16/19 09:49 Anti-Inflamma not to take d/t cirrhosis and gi bleed Home Medications Home Medications Medication Instructions Recorded Confirmed Type cholecalciferol (vitamin D3) 125 0 unit PO QAM #30 tab 08/17/18 04/25/19 History mcg (5,000 unit) tablet blood sugar diagnostic #50 ea 09/07/18 04/16/19 Rx polyethylene glycol 3350 17 0 g PO DAILY PRN gm 09/07/18 04/25/19 History gram/dose oral powder cyanocobalamin (vitamin B-12) 0 mcg PO QAM 09/17/18 04/25/19 History [Vitamin B-12] albuterol sulfate 0 mg INH Q4H PRN 01/02/19 04/25/19 History albuterol sulfate 90 mcg/actuation 0 inh INH DIRECTED PRN gm 01/03/19 04/25/19 History aerosol inhaler amlodipine [Norvasc] 5 mg PO QAM 02/04/19 04/25/19 History furosemide [Lasix] 20 mg PO QAM 02/04/19 04/25/19 History ondansetron 4 - 8 mg PO Q8 PRN 03/15/19 04/25/19 History amitriptyline 25 mg tablet 25 mg PO HS #30 tab 03/26/19 04/25/19 Rx carvedilol [Coreg] 25 mg PO BID 04/25/19 04/25/19 History diclofenac sodium [Voltaren] 1 % TOPICAL Q4H PRN 04/25/19 04/25/19 History ferrous sulfate [Iron (ferrous 325 mg PO BID 04/25/19 04/25/19 History sulfate)] levothyroxine [Synthroid] 125 mcg PO QAM 04/25/19 04/25/19 History meclizine [Dramamine Less Drowsy] 25 mg PO TID PRN 04/25/19 04/25/19 History methocarbamol 500 mg PO Q8H PRN 04/25/19 04/25/19 History metoclopramide HCl [Reglan] 5 mg PO BID PRN 04/25/19 04/25/19 History oxycodone [Roxicodone] 5 mg PO Q8H PRN 04/25/19 04/25/19 History pantoprazole [Protonix] 40 mg PO QAM 04/25/19 04/25/19 History pramipexole 0 mg PO QPM PRN 04/25/19 04/25/19 History prenat.vits,evelyn,arw-[id number]-pbkty 0 tab PO DAILY 04/25/19 04/25/19 History spironolactone [Aldactone] 25 mg PO BID 04/25/19 04/25/19 History Patient History Medical History Anemia Ascites usually happens q 6 weeks - follows with [facility] Asthma RARELY USES PRN INH Chronic back pain Chronic reflux esophagitis COPD (chronic obstructive pulmonary disease) Depression with anxiety Diabetes type 2, controlled Dyslipidemia Esophageal 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 ARAIZA; U/S EVERY 6 MONTHS for HCC SURVEILLANCE Microalbuminuria Osteoarthritis Spine and knee Osteoporosis Portal hypertension Restless legs syndrome Solitary pulmonary nodule PT REPORTS "SPOTS ON LUNGS" doenst follow with anyone Vitamin D deficiency Surgical History History of cholecystectomy History of colonoscopy W/ POLYPECTOMY History of esophagogastroduodenoscopy (EGD) History of hip surgery LT - HARDWARE PRESENT History of left cataract extraction History of right cataract surgery History of surgery on extremity RLE - HARDWARE PRESENT History of tonsillectomy History of tooth extraction History of total abdominal hysterectomy and bilateral salpingo-oophorectomy Secondary to fibroid History of tubal ligation Family History Mother Family history of diabetes mellitus Stroke Daughter Family history of diabetes mellitus Father Pneumonia Social History (Updated 04/25/19 @ 14:46 by Shannan Valles DO) Preferred Language: [place]ese Communication Ability: Impaired Cross Roller Required: No Beliefs That Will Affect Care: None marital status: Current Living Situation: Alone current occupational status: retired Feels Safe at Home: Yes Smoking Status: Current every day smoker Tobacco Type: cigarettes ; Age Started Using Tobacco: 16 ; packs per day: 1 ; Cigarettes Per Day: 20 ; Second Hand Exposure: No ; Hx Alcohol Use: No Hx Substance Use: No caffeine: Yes Dental Care, Regularly: Yes Physical Activity Frequency: Does not Exercise Seatbelt Use: always Review of Systems Constitutional: + weakness Respiratory: no dyspnea Cardiovascular: no chest pain Gastrointestinal: + diarrhea/loose stools; no abdominal pain and no nausea Musculoskeletal: chronic back pain Neurologic: + confusion (reported by staff and family) Physical Exam Constitutional: + ill appearing and + obese Eyes: PERRL, conjunctivae normal, anicteric sclerae Respiratory: normal respiratory effort, lungs clear to auscultation Cardiovascular: Rate/Rhythm: regular rate and regular rhythm Extremities: no edema Skin: no rashes, warm and dry Neurologic: awake Psychiatric: Orientation: oriented x 3 Insight: + limited insight Results & Data Vital Signs (Past 12 Hours) Vital Signs Temp Pulse Pulse Resp BP BP Pulse Ox 04/26/19 11:00 90 20 99/56 L 97 04/26/19 10:45 96 H 20 87/64 L 96 04/26/19 10:30 94 H 22 89/45 L 96 04/26/19 09:34 100 H 22 128/70 96 04/26/19 08:20 100 H 26 H 123/81 04/26/19 08:00 98 H 04/26/19 07:51 36.9 C 98 H 14 118/103 H 99 04/26/19 06:50 101 H 26 H 151/73 H 04/26/19 05:00 96 H 22 98 04/26/19 04:00 97 H 18 98 Time Spent Midlevel 70 minutes with >50% of the time spent at bedside with patient and family discussing condition and GOC.
[2019-04-26] MEDS: LACTULOSE SYRUP 30 GM/45 ML UDP PO PRN (15:48)
[2019-04-26] MEDS: PANTOprazole 40 MG in SYRINGE 0 ML IV SCH (21:19)
[2019-04-26] MEDS: AMITRIPTYLINE HCL 25 MG TAB PO SCH (21:20)
[2019-04-27] MEDS: INSULIN ASPART 100 UNITS/ML 3 ML PEN SC SCH ×5 (00:15→21:17)
[2019-04-27 07:09] LABS: Basophils # (auto) 0.03 K/uL (0-0.2); Basophils % (auto) 0.3 %; Eosinophils # (auto) 0.05 K/uL (0-0.5); Eosinophils % (auto) 0.5 %; Hematocrit (blood only) 22.9 % (37-47); Hemoglobin 7.5 g/dL (12.0-16.0); Immature Granulocytes # (auto) 0.02 K/uL (0.00-0.02); Immature Granulocytes % (auto) 0.2 %; Lymphocytes # (auto) 1.62 K/uL (1.2-3.4); Lymphocytes % (auto) 17.2 %; Mean Corpuscular Hemoglobin 35.9 pg (25-34); Mean Corpuscular Hgb Conc 32.8 g/dL (32-36); Mean Corpuscular Volume 109.6 fL (80-100); Mean Platelet Volume 9.4 fL (7.4-10.4); Monocytes % (auto) 10.6 %; Neutrophils # (auto) 6.68 K/uL (1.4-6.5); Neutrophils % (auto) 71.2 %; Nucleated RBC # (auto) 0.07 K/uL (0-0); Nucleated RBC % (auto) 0.8 %; Platelet Count 139 K/uL (130-400); RDW Coefficient of Variation 14.6 % (11.5-14.5); RDW Standard Deviation 56.5 fL (36.4-46.3); Red Blood Count 2.09 M/uL (4.2-5.4)
[2019-04-27 07:37] LABS: Alanine Aminotransferase 47 U/L (12-78); Albumin Level 2.6 gm/dl (3.4-5.0); Aspartate Aminotransferase 62 U/L (15-37); BUN Creatinine Ratio 31.5 (10-20); Bilirubin Direct < 0.1 mg/dl (0-0.2); Blood Urea Nitrogen 22 mg/dl (7-18); Calcium 8.1 mg/dl (8.5-10.1); Carbon Dioxide 25 mmol/L (21-32); Chloride 117 mmol/L (98-107); Creatinine Clr Calc Pharmacy 77.3 ml/min; Est GFR (African American) 97.5; Est GFR (Non-African American) 84.2; Glucose 138 mg/dl (70-99); Sodium 146 mmol/L (136-145)
[2019-04-27 07:40] LABS: Alkaline Phosphatase 50 U/L (45-117); Bilirubin,Total 0.4 mg/dl (0.2-1); Total Protein 5.9 gm/dl (6.4-8.2)
[2019-04-27 07:44] LABS: Polychromasia 1+
[2019-04-27] MEDS: PANTOprazole 40 MG in SYRINGE 0 ML IV SCH ×2 (09:00→20:25)
[2019-04-27] MEDS: LEVOTHYROXINE SODIUM 62.5 MCG in SYRINGE 0 ML IV SCH (09:00)
[2019-04-27] MEDS: RIFAXIMIN 200 MG TABLET PO SCH ×3 (09:00→20:25)
[2019-04-27] MEDS: POTASSIUM CHLORIDE / WTR 10 MEQ/100 ML PLCT IV SCH ×4 (10:28→15:16)
[2019-04-27] MEDS: LACTULOSE SYRUP 30 GM/45 ML UDP PO PRN (13:27)
[2019-04-27 13:29] LABS: Hematocrit (blood only) 22.1 % (37-47); Hemoglobin 7.1 g/dL (12.0-16.0)
--- NOTE | 2019-04-27 15:30 | Gastroenterology Progress Note ---
Date of Service April 27, 2019 Subjective Pt without complaints. Dark stool x 3 overnight, no BM today. No abd pain. P er nurse, more lucid. PE: BP stbale Abd: soft NT Psych: Awake, alert, conversant. Mild asterixis Labs: Hgb 7.1 from 7.5, BUN improved A/p: Cirrhosis with HE, overt obscure GIB - PPI IV bolus BID, convert to PO BID tomorrow. Hgb daily, cont iron supp. Adv diet to fulls. Cont follow for recurrent GIB. - HE appears improved, cont lactulose/xifaxan. Plan to increase lactulose tomorrow if does not have 3 BM's today Results & Data Vital Signs (Past 12 Hours) Vital Signs Temp Pulse Pulse Pulse Resp BP Pulse Ox 04/27/19 14:56 81 04/27/19 14:11 36.9 C 79 20 107/65 98 04/27/19 07:53 37.6 C H 73 20 110/61 97 04/27/19 07:26 82 04/27/19 04:50 37.5 C 81 20 131/67 96
--- NOTE | 2019-04-27 16:24 | Critical Care Progress Note ---
Date of Service April 26, 2019 Assessment & Plan (1) Encephalopathy, hepatic: Reason Critically Ill: 78-year-old female with Santos cirrhosis and known esophageal varices presents with GI bleed and acute encephalopathy Neuro - Encephalopathy-improvement -Patient now able to volitionally take lactulose orally -Should be able to avoid chemical restraints -Attempting to minimize stimuli -Initiate rifaximin -Fall precautions per nursing protocol Cardiac - Elevated troponin: Improving d Respiratory - COPDstable -CXR showed stable emphysema and stable lung nodule -Nebs as needed -Currently maintaining sats on room air without issue GI - GI bleed/esophageal varices /Santos cirrhosis/elevated ammonia -Reviewed EGD findings -Discontinue octreotide convert Protonix to IV twice daily -Family and patient requesting more information about long- term prognosis of cirrhosis -They feel they largely do not understand what cirrhosis means -Significant discussion with family regarding current clinical condition and need for follow-up -Likely child's class B progressing towards C RENAL/LYTES - AKIimproved -Discontinue additional fluid -Patient has remained normotensive on admission - Foleystrict I's and O's ENDO - History of DM type II questionable as patient is not on diabetic medications and hemoglobin A1c within normal limits on prior admissions -ICU hyperglycemic protocol Hypothyroidismcontinue Synthroid HEME - Acute blood loss anemia -Source inconclusive at this time ID - Could discontinue ceftriaxone given lack of bleeding from varices/stable varices LINES/IV ACCESS - Peripheral IVs DVT PROPHYLAXIS - SCDs, chemical prophylaxis contraindicated Dispel: Stable for downgrade out of ICU given significant improvement. 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 She is able to follow two-step commands intermittently. Much improved compared to yesterday's encephalopathy. Review of Systems Review of Systems: Unobtainable due to reduced consciousness Physical Exam Physical Exam: General: Alert. Oriented to self and place Skin: Warm, dry, Head: Atraumatic Ears, nose, mouth and throat: airway patent, mucous membranes moist Cardiovascular: Normal peripheral perfusion Respiratory: no respiratory distress Gastrointestinal: Non distended Musculoskeletal: No deformity Results & Data Vital Signs (Past 12 Hours) Vital Signs Temp Pulse Pulse Pulse Resp BP Pulse Ox 04/27/19 15:32 37.0 C 82 18 106/65 97 04/27/19 14:56 81 04/27/19 14:11 36.9 C 79 20 107/65 98 04/27/19 07:53 37.6 C H 73 20 110/61 97 04/27/19 07:26 82 04/27/19 04:50 37.5 C 81 20 131/67 96 Coding Level of Care Code 10390 Subseq Hosp Care Lvl 3 Diagnoses Encephalopathy, hepatic K72.90 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
[2019-04-27] MEDS ORDERED: SODIUM CHLORIDE 0.9% 250 ML IV PRN (19:28)
--- NOTE | 2019-04-27 19:33 | Hospitalist Progress Note ---
Date of Service April 27, 2019 Assessment & Plan (1) GI (gastrointestinal bleed): Hx of same last year with question of varices GI planning for lactulose and monitoring for now Follows with Dr. Lehman Hb dropped to 7.2 will be checking repeat hemoglobin today will continue to monitor. Patient has signs of liver cirrhosis and portal hypertension. Had upper endoscopy during hospital stay which was negative. Had recent lower scope pror to hospital stay which was also negative, given natu re of melena, doubt lower GI bleed. Patient was awake alert oriented and was able to show understanding of risk and benefit of transfusion. Patient gave consent for blood. Will hold blood tranfusion for now. (2) AMS (altered mental status): due to hepatic encephalopath. on lactulose, patient is improving.. (3) Elevated troponin: 0.20 on admission ECHO 04/18/19 was WNL EKG neg for acute (4) Hypertension: restarted carvedilol, will continue to monitor. (5) Hypothyroidism: Convert to IV (6) Diabetes type 2, controlled: SSI PRN A1c 5.3 (7) Depression with anxiety: Holding home meds (8) COPD (chronic obstructive pulmonary disease): continue home meds (9) Restless legs syndrome: Holding home meds (10) Dyslipidemia: Holding home meds (11) DVT prophylaxis: SCDs given GIB (12) Tobacco use disorder: 1ppd per family nicotine patch if withdrawal sx (13) Portal hypertension: as stated above. (14) Esophageal varices in cirrhosis: noted on EGD. 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 Given patient's advanced age, unlike to be a candidate for liver transplant. Consulted palliative care. Patient wants to continue to be full code. (16) Encephalopathy, hepatic: on lactulose updated family via phone Subjective 78 yo female reports feeling much better. Patient states she is very much less confused today. She explains tat she knows she is in the hospital for GI bleeding. She reports no bleeding, bright red blood, dark stools, or diarrhea today. Patient gives consent to for possible blood transfusion if needed. Review of Systems Review of Systems: All systems reviewed & are unremarkable except as noted in HPI & below Physical Exam Physical Exam: Constitutional: WD/WN, vitals as above Eyes: normal visual arellano by confrontation and + anicteric sclerae Neck: normal visual inspection and trachea midline Respiratory: normal respiratory effort, lungs clear to auscultation Cardiovascular: Rate/Rhythm: regular rate and regular rhythm Gastrointestinal (Abdomen): Inspection/Auscultation: abdomen not distended Percussion/Palpation: abdomen soft Musculoskeletal: Head/Neck/Chest: normocephalic and head atraumatic negative for edema, peripheral pulses intact Skin: no rashes, warm and dry Neurologic: awake and alert, oriented x3 Psychiatric: Patient is calm, answers questions appropriately Results & Data Vital Signs (Past 12 Hours) Vital Signs Temp Pulse Pulse Pulse Resp BP Pulse Ox 04/27/19 15:32 37.0 C 82 18 106/65 97 04/27/19 14:56 81 04/27/19 14:11 36.9 C 79 20 107/65 98 04/27/19 07:53 37.6 C H 73 20 110/61 97 PG Care Time/CCT Total # of Minutes Spent Total Time Spent with Patient: Total time spent is greater than 50% in coordination of care (as documented) at patient's floor/unit and/or counseling patient: (1) GI (gastrointestinal bleed) GI bleed type/associated pathology: unspecified gastrointestinal hemorrhage type Qualified Code(s): K92.2 - Gastrointestinal hemorrhage, unspecified (2) AMS (altered mental status) Altered mental status type: unspecified Qualified Code(s): R41.82 - Altered mental status, unspecified
[2019-04-27 19:58] LABS: Hematocrit (blood only) 23.9 % (37-47); Hemoglobin 7.7 g/dL (12.0-16.0)
[2019-04-27 20:19] LABS: Ferritin 25.4 ng/ml (8-388)
[2019-04-27] MEDS: carvediloL 25 MG TAB PO SCH (20:24)
[2019-04-27] MEDS: AMITRIPTYLINE HCL 25 MG TAB PO SCH (20:25)
[2019-04-27 20:38] LABS: Folate (Folic Acid) 23.42 ng/ml (>5.38)
[2019-04-27] MEDS ORDERED: POTASSIUM CHLORIDE 20 MEQ TABCR PO SCH (21:00)
[2019-04-27] MEDS ORDERED: IBUPROFEN 200 MG TAB PO STA (23:52)
[2019-04-28] MEDS ORDERED: ZOLPIDEM TARTRATE 5 MG TAB PO STA ×2 (01:36→21:12)
[2019-04-28 06:31] LABS: Basophils # (auto) 0.02 K/uL (0-0.2); Basophils % (auto) 0.3 %; Eosinophils # (auto) 0.19 K/uL (0-0.5); Eosinophils % (auto) 2.7 %; Hematocrit (blood only) 22.1 % (37-47); Hemoglobin 7.2 g/dL (12.0-16.0); Lymphocytes # (auto) 1.37 K/uL (1.2-3.4); Lymphocytes % (auto) 19.7 %; Mean Corpuscular Hemoglobin 35.8 pg (25-34); Mean Corpuscular Hgb Conc 32.6 g/dL (32-36); Mean Platelet Volume 9.6 fL (7.4-10.4); Monocytes # (auto) 0.83 K/uL (0.11-0.59); Monocytes % (auto) 11.9 %; Neutrophils # (auto) 4.55 K/uL (1.4-6.5); Neutrophils % (auto) 65.4 %; Nucleated RBC # (auto) 0.05 K/uL (0-0); Nucleated RBC % (auto) 0.7 %; Platelet Count 133 K/uL (130-400); RDW Coefficient of Variation 14.5 % (11.5-14.5); Red Blood Count 2.01 M/uL (4.2-5.4); White Blood Count 6.96 K/uL (4.8-10.8)
[2019-04-28 06:49] LABS: Polychromasia 1+
[2019-04-28 07:02] LABS: Alanine Aminotransferase 42 U/L (12-78); Albumin Level 2.5 gm/dl (3.4-5.0); Aspartate Aminotransferase 42 U/L (15-37); BUN Creatinine Ratio 23.1 (10-20); Bilirubin Direct < 0.1 mg/dl (0-0.2); Blood Urea Nitrogen 15 mg/dl (7-18); Calcium 7.9 mg/dl (8.5-10.1); Carbon Dioxide 24 mmol/L (21-32); Chloride 113 mmol/L (98-107); Creatinine Clr Calc Pharmacy 83.8 ml/min; Est GFR (Non-African American) 86.2; Glucose 106 mg/dl (70-99); Potassium 3.1 mmol/L (3.5-5.1); Sodium 142 mmol/L (136-145)
[2019-04-28 07:05] LABS: Alkaline Phosphatase 49 U/L (45-117); Bilirubin,Total 0.6 mg/dl (0.2-1); Phosphorus 1.9 mg/dl (2.5-4.9); Total Protein 5.7 gm/dl (6.4-8.2)
[2019-04-28] MEDS: PANTOprazole 40 MG in SYRINGE 0 ML IV SCH ×2 (08:29→21:05)
[2019-04-28] MEDS: carvediloL 25 MG TAB PO SCH ×2 (08:29→21:04)
[2019-04-28] MEDS: INSULIN ASPART 100 UNITS/ML 3 ML PEN SC SCH ×4 (08:30→21:05)
[2019-04-28] MEDS: RIFAXIMIN 200 MG TABLET PO SCH ×3 (08:30→21:04)
[2019-04-28] MEDS ORDERED: SODIUM CHLORIDE 0.9% 250 ML IV PRN (09:09)
--- NOTE | 2019-04-28 09:34 | Hospitalist Progress Note ---
Date of Service April 28, 2019 Assessment & Plan (1) GI (gastrointestinal bleed): Hx of same last year with question of varices Follows with Dr. Lehman Hb dropped to 7.1 will transfuse one PRBC. Another PRBC is on hold. will be checking repeat hemoglobin today will continue to monitor. Patient has signs of liver cirrhosis and portal hypertension. Had upper endoscopy during hospital stay which was negative. Had recent lower scope pror to hospital stay which was also negative, given sierra ure of melena, doubt lower GI bleed. (2) AMS (altered mental status): due to hepatic encephalopath. on lactulose, rifaximin. resolved, patient had 3 BM on 04/27. none this AM. (3) Elevated troponin: 0.20 on admission ECHO 04/18/19 was WNL EKG neg for acute (4) Hypertension: restarted carvedilol, will continue to monitor. BP was low in the afternoon. considered adding midodrine but BP improved after transfusion (5) Hypothyroidism: Convert to IV (6) Diabetes type 2, controlled: SSI PRN A1c 5.3 (7) Depression with anxiety: Holding home meds (8) COPD (chronic obstructive pulmonary disease): continue home meds (9) Restless legs syndrome: Holding home meds (10) Dyslipidemia: Holding home meds (11) DVT prophylaxis: SCDs given GIB (12) Tobacco use disorder: 1ppd per family nicotine patch if withdrawal sx (13) Portal hypertension: as stated above. (14) Esophageal varices in cirrhosis: noted on EGD. 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 Given patient's advanced age, unlike to be a candidate for liver transplant. Consulted palliative care. Patient wants to continue to be full code. (16) Encephalopathy, hepatic: on lactulose on 04/27 updated family via phone Subjective Patient has no new complaints. She reports having 3 loose stools yesterday but none today. No blood. Review of Systems Review of Systems: All systems reviewed & are unremarkable except as noted in HPI & below Physical Exam Physical Exam: Constitutional: WD/WN, vitals as above Eyes: normal visual arellano by confrontation and + anicteric sclerae Neck: normal visual inspection and trachea midline Respiratory: normal respiratory effort, lungs clear to auscultation Cardiovascular: Rate/Rhythm: regular rate and regular rhythm Gastrointestinal (Abdomen): Inspection/Auscultation: abdomen not distended Percussion/Palpation: abdomen soft Musculoskeletal: Head/Neck/Chest: normocephalic and head atraumatic negative for edema, peripheral pulses intact Skin: no rashes, warm and dry Neurologic: awake and alert, oriented x3 Psychiatric: Patient is calm, answers questions appropriately Results & Data Vital Signs (Past 12 Hours) Vital Signs Temp Pulse Pulse Pulse Resp BP BP 04/28/19 07:46 36.9 C 70 18 110/48 L 04/28/19 07:12 68 04/28/19 04:00 37.1 C 80 20 124/67 04/28/19 00:00 84 04/27/19 23:00 37.1 C 81 19 116/71 Pulse Ox 04/28/19 07:46 96 04/28/19 07:12 04/28/19 04:00 96 04/28/19 00:00 04/27/19 23:00 97 PG Care Time/CCT Total # of Minutes Spent Total Time Spent with Patient: Total time spent is greater than 50% in coordination of care (as documented) at patient's floor/unit and/or counseling patient: (1) GI (gastrointestinal bleed) GI bleed type/associated pathology: unspecified gastrointestinal hemorrhage type Qualified Code(s): K92.2 - Gastrointestinal hemorrhage, unspecified (2) AMS (altered mental status) Altered mental status type: unspecified Qualified Code(s): R41.82 - Altered mental status, unspecified
[2019-04-28] MEDS: LEVOTHYROXINE SODIUM 62.5 MCG in SYRINGE 0 ML IV SCH (09:40)
[2019-04-28 17:49] LABS: Hematocrit (blood only) 28.1 % (37-47); Hemoglobin 9.3 g/dL (12.0-16.0)
[2019-04-28] MEDS: AMITRIPTYLINE HCL 25 MG TAB PO SCH (21:04)
[2019-04-29 02:04] LABS: 7-Aminoclonaz, Confirm NEGATIVE ng/mL (<25); Hydro-Alp Ur, GC/MS NEGATIVE ng/mL (<25); Hydroxyethylflurazepam, Conf NEGATIVE ng/mL (<50); Hydroxytriazolam NEGATIVE ng/mL (<50); Lorazepam, Ur GC/MS 202 ng/mL (<50); Nordiazepam, Confirm NEGATIVE ng/mL (<50); Oxazepam Ur, GC/MS NEGATIVE ng/mL (<50); Temazepam, Confirm NEGATIVE ng/mL (<50)
[2019-04-29 07:54] LABS: Hematocrit (blood only) 25.8 % (37-47); Hemoglobin 8.6 g/dL (12.0-16.0); Mean Corpuscular Hemoglobin 35.2 pg (25-34); Mean Corpuscular Hgb Conc 33.3 g/dL (32-36); Mean Corpuscular Volume 105.7 fL (80-100); Mean Platelet Volume 9.6 fL (7.4-10.4); Platelet Count 153 K/uL (130-400); RDW Coefficient of Variation 16.5 % (11.5-14.5); RDW Standard Deviation 61.2 fL (36.4-46.3); Red Blood Count 2.44 M/uL (4.2-5.4); White Blood Count 8.68 K/uL (4.8-10.8)
[2019-04-29 08:02] LABS: INR 1.2 (0.9-1.1); Prothrombin Time 11.9 Seconds (9.0-12.0)
--- NOTE | 2019-04-29 08:21 | Anesthesiology Progress Note ---
Date of Service April 29, 2019 Anesthesia Post Procedure Vital Signs Vital Signs: Temp Pulse Pulse Pulse Resp BP BP 04/29/19 07:58 36.9 C 78 18 108/61 04/29/19 07:31 72 04/29/19 04:01 36.7 C 72 19 04/29/19 00:00 71 04/28/19 23:00 37.5 C 77 99/60 L 04/28/19 19:00 37.1 C 76 19 04/28/19 16:41 65 04/28/19 15:17 36.9 C 67 18 04/28/19 13:45 37.2 C 60 18 04/28/19 13:18 37.1 C 58 L 18 92/50 L 04/28/19 12:18 37.1 C 63 18 97/59 L 04/28/19 11:18 37.1 C 57 L 88/50 L 04/28/19 10:48 37.1 C 54 L 18 85/55 L 04/28/19 10:46 36.8 C 55 L 18 04/28/19 10:45 36.8 C 55 L 18 74/37 L 04/28/19 10:30 37.2 C 54 L 16 72/38 L 04/28/19 10:16 37.2 C 56 L 16 70/31 L BP Pulse Ox 04/29/19 07:58 96 04/29/19 07:31 04/29/19 04:01 124/65 97 04/29/19 00:00 04/28/19 23:00 97 04/28/19 19:00 96/55 L 98 04/28/19 16:41 04/28/19 15:17 135/69 98 04/28/19 13:45 96 04/28/19 13:18 97 04/28/19 12:18 97 04/28/19 11:18 95 04/28/19 10:48 96 04/28/19 10:46 74/37 L 96 04/28/19 10:45 96 04/28/19 10:30 97 04/28/19 10:16 96 Pain Intensity Back: Pain Intensity: 6 Notes Mental Status: alert / awake / arousable Patient Amnestic to Procedure: Yes Nausea / Vomiting: adequately controlled Pain: adequately controlled Airway Patency, RR, SpO2: stable & adequate BP & HR: stable & adequate Hydration State: stable & adequate Anesthetic Complications: no major complications apparent
[2019-04-29 08:25] LABS: Albumin Level 2.6 gm/dl (3.4-5.0); BUN Creatinine Ratio 13.3 (10-20); Calcium 7.9 mg/dl (8.5-10.1); Creatinine Clr Calc Pharmacy 77.7 ml/min; Est GFR (African American) 95.9; Est GFR (Non-African American) 82.7; Potassium 3.4 mmol/L (3.5-5.1)
[2019-04-29] MEDS: PANTOprazole 40 MG in SYRINGE 0 ML IV SCH (08:26)
[2019-04-29] MEDS: carvediloL 25 MG TAB PO SCH (08:27)
[2019-04-29] MEDS: RIFAXIMIN 200 MG TABLET PO SCH (08:27)
[2019-04-29] MEDS: INSULIN ASPART 100 UNITS/ML 3 ML PEN SC SCH ×2 (08:28→13:10)
[2019-04-29 08:33] LABS: Albumin Globulin Ratio 0.8 (0.9-2); Bilirubin,Total 0.6 mg/dl (0.2-1); Globulin 3.4 gm/dl (2.5-4.0)
[2019-04-29] MEDS: LACTULOSE SYRUP 30 GM/45 ML UDP PO PRN (08:46)
[2019-04-29] MEDS: LEVOTHYROXINE SODIUM 62.5 MCG in SYRINGE 0 ML IV SCH (08:46)
[2019-04-29] MEDS ORDERED: POTASSIUM CHLORIDE 20 MEQ TABCR PO ONE (09:00)
[2019-04-29] MEDS ORDERED: PANTOprazole 40 MG TAB PO SCH (09:00)
--- NOTE | 2019-04-29 12:33 | Discharge Summary ---
Date of Service April 29, 2019 Admission HPI Per Admitting Provider 78 y/o F who was brought in by family after being found with AMS. Daughter states that pt called her yesterday asking her to bring some daron ct as she was having an "upset stomach". Upon arrival to the home, pt was noted to be pale and sweaty. Daughter wanted pt to come to the ED yesterday, but she refused at that time. Daughter called this AM to check on pt, but phone went unanswered. Due to this, daughter went to pt's home and found pt lying across her bed with dark black stool on her and around the bathroom. Pt was not responsive to them and EMS was called. Pt was combative with EMS and ativan was given en route. Family states that pt had an episode of black stools last year, but it was nothing like this and there was no AMS involved. 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 They have never heard about elevated ammonia levels or lactulose use. They state pt has had no other recent concerns until yesterday. Principal Diagnosis Acute GI bleed Discharge Exam Constitutional WD/WN, vitals as above Eyes PERRL, conjunctivae normal, anicteric sclerae ENMT external ear and nose normal, oropharynx normal Neck trachea midline, no thyromegaly Respiratory normal respiratory effort, lungs clear to auscultation Cardiovascular RRR, no murmur, no edema Gastrointestinal (Abdomen) Inspection/Auscultation: + abdomen distended Percussion/Palpation: + abdomen tender, abdomen soft and + ascites (small amount); no guarding and abdomen not rigid Musculoskeletal no cyanosis or clubbing, extremities motor strength 5/5 Skin no rashes, warm and dry Neurologic patellar DTR's 2+ bilat, sensation intact and PERRL, EOMI, accommodation nl, no face palsy, no dysarthria Psychiatric A+Ox3, euthymic affect Lymphatic no cervical or axillary lymphadenopathy Discharge Data Allergies Allergy/AdvReac Type Severity Reaction Status Date / Time aspirin AdvReac Intermediate advised Verified 04/16/19 09:49 not to take d/t cirrhosis and gi bleed cortisone AdvReac Intermediate "WEIRD Verified 04/16/19 09:49 FEELING NSAIDS (Non-Steroidal AdvReac Intermediate advised Verified 04/16/19 09:49 Anti-Inflamma not to take d/t cirrhosis and gi bleed Consultations 04/25/19 13:14 Consult Gastroenterology Stat 04/25/19 13:25 ED Decision to Admit Stat 04/25/19 15:00 Consult Case Management - Discharge Planning Routine Consult Inductor Tester Routine Procedures Performed Operation Date: 04/26/19 16:00 Actual Procedures p Esophagogastroduodenoscopy(Not Applicable) - Caren Klein Ordered Studies 04/25/19 12:39 CT abd pelvis IV con only Stat 04/25/19 14:52 CT head/brain wo con Urgent US duplex portal hepatic veins Urgent Hospital Course (1) GI (gastrointestinal bleed): Hx of same last year with question of varices Follows with Dr. Lehman Hb dropped to 7.1, transfused one unit, Hb up to > 8 and stable Patient has signs of liver cirrhosis and portal hypertension. Had upper endoscopy during hospital stay which showed non bleeding varices, no ulcers Had recent colonoscopy prior to hospital stay which was also negative, given nature of melena, doubt lower GI bleed Hb stable for 48 hours, no melena, will follow up with PCP and GI (2) AMS (altered mental status): due to hepatic encephalopathy which is new symptom of her cirrhosis ammonia trending down into the 30's, was as high as 90 at time of admission started on Rifaximin and Lactulose, excellent response d/c home on Rifaximin 550mg BID Lactulose 45mL TID, goal is to have 3 BM a day discussed this with patient and her family follow up with GI in 2-3 weeks (3) Elevated troponin: 0.20 on admission ECHO 04/18/19 was WNL EKG neg for acute does not represent ACS (4) Hypertension: continue Coreg for BP control, also will lower splanchnic pressures on varices STOP Amlodipine as BP stable off of it (5) Hypothyroidism: continue Synthroid (6) Diabetes type 2, controlled: SSI PRN A1c 5.3 (7) Depression with anxiety: Holding home meds (8) COPD (chronic obstructive pulmonary disease): continue home meds (9) Restless legs syndrome: resume home meds (10) Dyslipidemia: resume home meds (11) DVT prophylaxis: SCDs given GIB (12) Tobacco use disorder: 1ppd per family nicotine patch prescription provided (13) Portal hypertension: as stated above. use Coreg to try to decrease pressure on Varices (14) Esophageal varices in cirrhosis: noted on EGD. 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 Given patient's advanced age, unlike to be a candidate for liver transplant. Consulted palliative care. Patient wants to continue to be full code. will follow up with GI in 2-3 weeks (16) Encephalopathy, hepatic: resolved utilize Rifaximin and Lactulose on discharge Total Time Total Time Spent Total Time Spent (In Minutes): 38 minutes Total Time Includes: Examination of the Patient, Discharge Planning, Medication Reconciliation, Communication With Other Providers (Tiffany Cherry, GI) and Other (updated family at the bedside) Discharge Plan Discharge Items Patient Disposition: Home - Self-Care Reason For Visit: GIB Discharge Diagnosis: Hepatic encephalopathy GI bleed, resolved Condition on Discharge: Good Goals: continue to take Rifaximin and Lactulose to control ammonia level follow up with Gastroenterology in a few weeks, discuss further treatment for cirrhosis Activity: Resume your previous activity Weightbearing: Full weightbearing Non-emergency contact: Primary Care Provider and Ems Instructor Call non-emergency contact if: you have any medication questions and your symptoms worsen Follow-up/Referrals: Courtney Jules, [Primary Care Provider] - 05/06/19 10:15 am (Please, follow up at Dr. Jules's office with her associate, Jose MCCAIN, on MondayMay 06 at 10:15 am. *If you need to change this appointment, call the office at [phone].) Diet: Carb Consistent or DM2 and Heart Healthy Diet Comment: low protein Addtl Attending Provider Instructions: Medications: note the changes, new medications - LACTULOSE: 45mL twice a day, goal is to have 3 bowel movements a day, if you are not having 3 BM then increase to 45mL three times a day - RIFAXIMIN: 550mg twice a day, this also treats the hepatic encephalopathy - AMLODIPINE: stopped this medication because blood pressure is low normal, it has been controlled off this medication - MIRALAX: stop taking this as the Lactulose will work as laxative Cirrhosis, presenting with hepatic encephalopathy ammonia quite elevated at time of admission at 80 down to 35 today and mental status is back to baseline ammonia is a byproduct of protein that the liver cannot process well once you have cirrhosis the treatment is to both decrease protein intake and decrease ammonia production in the gut - follow a low protein diet (common protein sources are meats, poultry, dairy products), still eat them but try to eat less - take Lactulose 45mL twice a day, goal is for 2-3 bowel movements a day - Rifaximin, 550mg twice a day follow up with Gastroenterology in 2-3 weeks Melena (dark stools) with possible GI bleed EGD on 04/25 with non-bleeding esophageal varices, no ulcers Hb is stable, went up to 8.6 from 7.2 after one unit of blood no signs of active bleeding continue Protonix 40mg daily continue Coreg to help control blood pressure and reduce risk of esophageal bleeding Tobacco abuse use nicotine patch start at 14mcg patch per day for 2 weeks then decrease to 7mcg patch per day for 2 weeks then stop do not smoke while on patch FOLLOW UP - Dr. Jules in one week, my nurse navigator will help arrange - Jalil Green, her office will call you to make appt for 2-3 weeks Pending Studies at Discharge: No Stand-Alone Forms: My [facility], Smoking Cessation Medications and DC Order Prescriptions: New lactulose 20 gram/30 mL Solution 45 ml PO BID Qty: 1500 RF: 2 rifaximin 550 mg tablet 550 mg PO BID Qty: 60 RF: 2 nicotine 14 mg/24 hr patch 24 hour 1 patch TD DAILY Qty: 14 RF: 0 nicotine 7 mg/24 hr patch 24 hour 1 patch TD DAILY Qty: 14 RF: 0 Continued albuterol sulfate 2.5 mg /3 mL (0.083 %) solution for nebulization 0 mg INH Q4H PRN (Reason: Shortness Of Breath Or Wheezing) RF: 0 amitriptyline 25 mg tablet 25 mg PO HS Qty: 30 RF: 3 cholecalciferol (vitamin D3) 5,000 unit tablet 0 unit PO QAM Qty: 30 RF: 0 (DME) OneTouch Ultra Blue Test Strip strip See Dose Instructions .ROUTE .MEDSUPPLY Qty: 50 RF: 0 albuterol sulfate [Ventolin HFA] 90 mcg/actuation HFA aerosol inhaler 0 inh INH DIRECTED PRN (Reason: Shortness Of Breath Or Wheezing) RF: 0 furosemide [Lasix] 20 mg tablet 20 mg PO QAM RF: 0 ondansetron 4 mg tablet,disintegrating 4 - 8 mg PO Q8 PRN (Reason: Nausea) RF: 0 cyanocobalamin (vitamin B-12) [Vitamin B-12] 1,000 mcg Tablet 0 mcg PO QAM RF: 0 methocarbamol 500 mg tablet 500 mg PO Q8H PRN (Reason: Muscle Spasm) RF: 0 carvedilol [Coreg] 25 mg tablet 25 mg PO BID RF: 0 spironolactone [Aldactone] 25 mg tablet 25 mg PO BID RF: 0 metoclopramide HCl [Reglan] 5 mg tablet 5 mg PO BID PRN (Reason: Nausea And Vomiting) RF: 0 meclizine [Dramamine Less Drowsy] 25 mg tablet 25 mg PO TID PRN (Reason: Dizziness) RF: 0 pantoprazole [Protonix] 40 mg tablet,delayed release (DR/EC) 40 mg PO QAM RF: 0 ferrous sulfate [Iron (ferrous sulfate)] 325 mg (65 mg iron) tablet 325 mg PO BID RF: 0 levothyroxine [Synthroid] 125 mcg tablet 125 mcg PO QAM RF: 0 pramipexole 0.25 mg tablet 0 mg PO QPM PRN (Reason: restless leg(s)) RF: 0 oxycodone [Roxicodone] 5 mg tablet 5 mg PO Q8H PRN (Reason: Pain) RF: 0 prenat.vits,evelyn,ygr-ukxk-vxvzi tablet 0 tab PO DAILY RF: 0 diclofenac sodium [Voltaren] 1 % gel 1 % topical Q4H PRN (Reason: Pain) RF: 0 Discontinued polyethylene glycol 3350 17 gram/dose powder 0 g PO DAILY PRN (Reason: Constipation) RF: 0 amlodipine [Norvasc] 5 mg tablet 5 mg PO QAM RF: 0 Discharge Orders: Discharge Order (Routine); Ordered 04/29/19 Ordered By: Kashif Larsen Admission Data Admit Date/Time: 04/25/19 13:50 Attending Provider: Kashif Larsen Admit Provider: Shannan Valles Primary Care Provider: Courtney Jules Other Providers: Caren Klein ; Shannan Valles ; Víctor Salvador Other Interventions: Discharge Summary Assessment (RN) Last Done: 04/29/19 12:34 DC Date/Time DO NOT enter until pt leaves facility: 04/29/19 13:22 Coding Level of Care Code D/C Day Management >30 mins Diagnoses GI (gastrointestinal bleed) K92.2 GI bleed type/associated pathology: unspecified gastrointestinal hemorrhage type AMS (altered mental status) R41.82 Altered mental status type: unspecified Elevated troponin R79.89 Hypertension I10 Hypothyroidism E03.9 Diabetes type 2, controlled E11.9 Depression with anxiety F41.8 COPD (chronic obstructive pulmonary disease) J44.9 Restless legs syndrome G25.81 Dyslipidemia E78.5 DVT prophylaxis Z29.9 Tobacco use disorder F17.200 Portal hypertension K76.6 Esophageal varices in cirrhosis K74.60; I85.10 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
--- NOTE | 2019-05-01 11:00 | Coding Query ---
CODING QUERY To promote full compliance with coding requirements relating to patient care, provider participation is requested in all cases of facilities maintenance manager uncertainty. Please assist us with the question(s) below: Coding Question(s): SANTOS-induced Cirrhosis patient admitted with melena. EGD negative . Prior Hospital visit for same. Patient with esophageal varices and portal hypertension. DS states " GI Bleed, history of same last year with questionnable varices". Please document, if known or suspected, the etiology of the GI Bleed. Thank you ! danis Gamble [facility] Physician's Response(s): GI bleed, unclear etiology, not due to varices Principal Diagnosis: "that condition established after study, to be chiefly responsible for occasioning the admission of the patient to the hospital for care." Co-Existing Principal Diagnosis: "when two or more diagnoses equally meet the criteria for principal diagnosis as determined by the circumstances of admission, diagnostic work up, and/or therapy provided, and the Alphabetic Index, Tabular List, or another coding guideline does not provide sequencing direction, any one of the diagnoses may be sequenced first." "When the physician has documented what appears to be a current diagnosis in the body of the record, but has not included the diagnosis in the final diagnostic statement, the physician should be asked whether the diagnosis should be added." (Source [facility]oding [facility] 2 QTR90. p3-4) ARAM
== END 2019-04-29 13:22 | disposition home or self-care (01) | DRG 377 ==
LOC: ED 10:31 → SUATTDRO 13:50 → 1E 13:50 → 2N 04-26 19:36

== ENCOUNTER 2020-09-03 11:13 | Observation (INO) ==
[2020-09-03] MEDS ORDERED: oxyCODONE HCL IR 5 MG TAB (IMMEDIATE RELEASE) PO STA (11:48)
--- NOTE | 2020-09-03 11:53 | Emergency Department Note ---
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 She was referred in by gastroenterology. She denies any headache or change in vision. She notes some shortness of breath as her belly is significantly distended and is giving her shortness of breath. She denies any nausea or vomiting or diarrhea. She admits to abdominal pain but it is more tightness as her belly feels completely full. She has chronic back pain going into her right hip after twisting. She notes its been there for 3 weeks and unchanged. Pain is worse with movement. Denies any weakness or numbness in the legs. No numbness in the groin. ROS: See above HPI for pertinent positives & negatives. A total of 10 systems reviewed and were otherwise negative. PAST MEDICAL HISTORY:See Below PAST SURGICAL HISTORY:See Below FAMILY HISTORY:See Below SOCIAL HISTORY:See Below HOME MEDICATIONS:See Below ALLERGIES:See Below VITALS:See Below PHYSICAL EXAMINATION: GENERAL: Sitting up in bed, alert, chronically ill-appearing, disheveled EYE EXAM: normal conjunctiva. PERRL and EOM's grossly intact. OROPHARYNX: no exudate, no erythema, lips, buccal mucosa, and tongue normal and mucous membranes are moist NECK: supple, no nuchal rigidity, no adenopathy, non-tender LUNGS: Clear to auscultation. Normal chest wall mechanics HEART: no murmurs, S1 normal and S2 normal ABDOMEN: abdomen soft, non-tender, normo-active bowel sounds, distended with pitting edema and erythema over the anterior abdominal wall. BACK: Back is symmetrical on inspection and there is no deformity, no midline tenderness, no CVA tenderness. UPPER EXTREMITIES: upper extremities are grossly normal. LOWER EXTREMITIES: No pitting edema. NEURO EXAM: Normal sensorium, cranial nerves II-XII grossly intact, normal speech, no gross weakness of arms, no gross weakness of legs. MEDICAL DECISION MAKING: Patient is a 80-year-old female who presents the ER for abdominal pain/fullness. Patient has a history of nonalcoholic cirrhosis. IV was established blood work was obtained. Labs showed no significant leukocytosis or anemia. INR was unremarkable. BMP with LFTs bilirubin was unremarkable. Troponin was negative. Lipase was unremarkable. Covid was negative. She has no significant abdominal pain other than distention. She was seen and evaluated by gastroenterology who recommended blood cultures ultrasound and they will order paracentesis. Patient was updated bedside. She was given oral OxyIR. Discussed with hospitalist for further evaluation. Triage Nursing notes reviewed. Limited review of prior medical records performed Vital Signs: reviewed and remarkable for HTN and tachy Differential diagnosis: Differential diagnoses includes but is not limited to gastritis, peptic ulcer disease, GERD, gallbladder disease, pancreatitis, small bowel obstruction, acute coronary syndrome, pericarditis, ischemic bowel, irritable bowel disease, irritable bowel syndrome, appendicitis, diverticulitis, malignancy, hernia, urinary tract infection, torsion, /ectopic (if female), perforation, trauma, infectious. ER treatment provided: See below Diagnostics interpreted by me: ECG: none Cardiac Monitoring: An order was placed for continuous cardiac monitoring. The monitor shows a rate of 80 with sinus rhythm. Laboratory studies: As stated above and show below. 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 Obesity Opioid-induced hyperalgesia Osteoporosis Portal hypertension Pulmonary nodule Restless legs syndrome Surgical History History of cholecystectomy History of esophagogastroduodenoscopy (EGD) History of hip surgery History of left cataract extraction History of open reduction and internal fixation (ORIF) procedure right lower extremity History of right cataract surgery History of surgery on extremity RLE - HARDWARE PRESENT History of tonsillectomy History of tooth extraction History of total abdominal hysterectomy and bilateral salpingo-oophorectomy Secondary to fibroid History of tubal ligation Family History Mother Stroke Diabetes Daughter Diabetes Father Pneumonia Denies family history of Ovarian cancer Prostate cancer Myocardial infarction Breast cancer Colorectal cancer Social History Smoking Status: Former smoker Tobacco Type: Cigarettes packs per day: 1; Cigarettes Per Day: 1 ppd; Second Hand Exposure: No; Hx Alcohol Use: No Hx Substance Use: No Preferred Language: Luxembourger Communication Ability: Impaired Visual Impairment: No Limitations Hearing Ability: Normal Plant Safety Leader Required: No Beliefs That Will Affect Care: None marital status: / Current Living Situation: Alone current occupational status: retired Feels Safe at Home: Yes Childhood Exposure to Second-Hand Smoke: Yes caffeine: Yes during the past year weight has: increased > 10 lbs Dental Care, Regularly: No Physical Activity Frequency: Does not Exercise Seatbelt Use: always Assistive Devices: Denture - Upper and Walker Allergies Allergies Allergy/AdvReac Type Severity Reaction Status Date / Time aspirin AdvReac Intermediate advised Verified 09/03/20 15:14 not to take d/t cirrhosis and gi bleed cortisone AdvReac Intermediate "WEIRD Verified 09/03/20 15:14 FEELING NSAIDS (Non-Steroidal AdvReac Intermediate advised Verified 09/03/20 15:14 Anti-Inflamma not to take d/t cirrhosis and gi bleed Home Meds Home Medications Medication Instructions Recorded Confirmed cholecalciferol (vitamin D3) 125 5,000 unit PO QAM #30 tab 08/17/18 09/03/20 mcg (5,000 unit) tablet cyanocobalamin (vitamin B-12) 1,000 mcg PO QAM 09/17/18 09/03/20 [Vitamin B-12] duloxetine 60 mg PO QAM 08/14/20 08/14/20 Previous Rx's Medication Instructions Recorded nystatin 100,000 unit/gram topical 1 appln TOP BID #30 gm 10/15/19 powder ferrous sulfate 325 mg (65 mg 325 mg PO BID #180 tab 01/09/20 iron) tablet furosemide 20 mg tablet 20 mg PO QAM #90 tab 01/22/20 spironolactone 25 mg tablet 25 mg PO BID #180 tab 02/19/20 levothyroxine 125 mcg tablet 125 mcg PO QAM #90 tab 02/25/20 blood-glucose meter #1 ea 04/01/20 blood-glucose meter #1 ea 04/01/20 diclofenac sodium 1 % topical gel 2 g TOPICAL QID PRN #100 g 05/12/20 trazodone 50 mg tablet 100 mg PO HS #180 tab 06/22/20 ondansetron 4 mg disintegrating 4 - 8 mg PO Q8H PRN #270 tab 07/02/20 tablet meclizine 25 mg tablet 25 mg PO TID PRN #30 tab 07/08/20 carvedilol 25 mg tablet 25 mg PO BID #180 tab 07/13/20 pantoprazole 40 mg tablet,delayed 40 mg PO QAM #90 tab 07/13/20 release pramipexole 0.25 mg tablet 0.25 mg PO QPM PRN #90 tab 07/17/20 cyclobenzaprine 5 mg PO TID PRN #30 tab 08/14/20 methylprednisolone 4 mg tablets in See Rx Instructions .ROUTE 08/14/20 a dose pack .COMPLEX #21 ea Results & Data (ED) Vital Signs Vital Signs - 24 hr 09/03/20 11:16 09/03/20 11:37 09/03/20 11:40 Temperature 36.5 C Temperature Source Skin Pulse Rate 89 90 91 H Pulse Rate from SpO2 Sensor 91 H 86 Pulse Rhythm Respiratory Rate 20 19 27 H Respiratory Effort / Characteristics Non-Labored Spontaneous Respiratory Depth Normal Respiratory Pattern Regular Blood Pressure 166/104 H 168/96 H Blood Pressure Mean 124 120 Pulse Oximetry 96 96 97 Oxygen Delivery Method Room Air Sepsis Recent Fever Within 48 Hours No Sepsis New/Unexplained Change in Mental Status N/A Sepsis Action Taken by Nursing No Action Required 09/03/20 11:46 09/03/20 11:47 09/03/20 11:50 Temperature Temperature Source Pulse Rate 103 H 89 88 Pulse Rate from SpO2 Sensor Pulse Rhythm Respiratory Rate 25 H 22 21 Respiratory Effort / Characteristics Respiratory Depth Respiratory Pattern Blood Pressure 139/110 H Blood Pressure Mean 119 Pulse Oximetry Oxygen Delivery Method Sepsis Recent Fever Within 48 Hours Sepsis New/Unexplained Change in Mental Status Sepsis Action Taken by Nursing 09/03/20 11:52 09/03/20 12:00 09/03/20 12:01 Temperature Temperature Source Pulse Rate 96 H 88 Pulse Rate from SpO2 Sensor 89 85 Pulse Rhythm Regular Respiratory Rate 28 H 15 Respiratory Effort / Characteristics Respiratory Depth Respiratory Pattern Blood Pressure 144/95 H Blood Pressure Mean 111 Pulse Oximetry 96 97 Oxygen Delivery Method Room Air Sepsis Recent Fever Within 48 Hours Sepsis New/Unexplained Change in Mental Status Sepsis Action Taken by Nursing 09/03/20 12:10 09/03/20 12:18 09/03/20 12:20 Temperature Temperature Source Pulse Rate 89 86 85 Pulse Rate from SpO2 Sensor 86 81 83 Pulse Rhythm Respiratory Rate 16 15 15 Respiratory Effort / Characteristics Respiratory Depth Respiratory Pattern Blood Pressure 141/85 H Blood Pressure Mean 103 Pulse Oximetry 95 94 96 Oxygen Delivery Method Sepsis Recent Fever Within 48 Hours Sepsis New/Unexplained Change in Mental Status Sepsis Action Taken by Nursing 09/03/20 12:30 09/03/20 12:31 09/03/20 12:40 Temperature Temperature Source Pulse Rate 84 85 87 Pulse Rate from SpO2 Sensor 82 79 84 Pulse Rhythm Respiratory Rate 15 18 17 Respiratory Effort / Characteristics Respiratory Depth Respiratory Pattern Blood Pressure 132/74 Blood Pressure Mean 93 Pulse Oximetry 93 94 93 Oxygen Delivery Method Sepsis Recent Fever Within 48 Hours Sepsis New/Unexplained Change in Mental Status Sepsis Action Taken by Nursing 09/03/20 12:45 09/03/20 12:50 09/03/20 13:00 Temperature Temperature Source Pulse Rate 90 85 87 Pulse Rate from SpO2 Sensor 83 79 79 Pulse Rhythm Respiratory Rate 14 16 17 Respiratory Effort / Characteristics Respiratory Depth Respiratory Pattern Blood Pressure 134/87 127/81 Blood Pressure Mean 102 96 Pulse Oximetry 94 93 92 Oxygen Delivery Method Sepsis Recent Fever Within 48 Hours Sepsis New/Unexplained Change in Mental Status Sepsis Action Taken by Nursing 09/03/20 13:01 09/03/20 13:10 09/03/20 13:15 Temperature Temperature Source Pulse Rate 86 87 87 Pulse Rate from SpO2 Sensor 86 80 88 Pulse Rhythm Respiratory Rate 16 26 H 21 Respiratory Effort / Characteristics Respiratory Depth Respiratory Pattern Blood Pressure 147/81 H Blood Pressure Mean 103 Pulse Oximetry 94 94 94 Oxygen Delivery Method Sepsis Recent Fever Within 48 Hours Sepsis New/Unexplained Change in Mental Status Sepsis Action Taken by Nursing 09/03/20 13:20 09/03/20 13:30 09/03/20 13:40 Temperature Temperature Source Pulse Rate 87 87 82 Pulse Rate from SpO2 Sensor 89 86 83 Pulse Rhythm Respiratory Rate 19 18 15 Respiratory Effort / Characteristics Respiratory Depth Respiratory Pattern Blood Pressure Blood Pressure Mean Pulse Oximetry 91 94 93 Oxygen Delivery Method Sepsis Recent Fever Within 48 Hours Sepsis New/Unexplained Change in Mental Status Sepsis Action Taken by Nursing 09/03/20 13:50 09/03/20 14:00 09/03/20 14:10 Temperature Temperature Source Pulse Rate 85 83 83 Pulse Rate from SpO2 Sensor 81 84 Pulse Rhythm Respiratory Rate 20 17 25 H Respiratory Effort / Characteristics Respiratory Depth Respiratory Pattern Blood Pressure Blood Pressure Mean Pulse Oximetry 93 94 Oxygen Delivery Method Sepsis Recent Fever Within 48 Hours Sepsis New/Unexplained Change in Mental Status Sepsis Action Taken by Nursing Laboratory Data Result diagrams: 09/03/20 11:43 09/03/20 11:43 Lab Results 09/03/20 09/03/20 09/03/20 Range/Units 11:43 11:43 12:18 WBC 6.94 (4.8-10.8) K/uL RBC 3.60 L (4.2-5.4) M/uL Hgb 14.6 (12.0-16.0) g/dL Hct 43.7 (37-47) % MCV 121.4 H (80-100) fL MCH 40.6 H (25-34) pg MCHC 33.4 (32-36) g/dL RDW Std Deviation 72.0 H (36.4-46.3) fL RDW Coeff of Mile 16.1 H (11.5-14.5) % Plt Count 181 (130-400) K/uL MPV 9.3 (7.4-10.4) fL Immature Gran % (Auto) 0.4 % Neut % (Auto) 72.5 % Lymph % (Auto) 16.1 % Talbot % (Auto) 9.9 % Eos % (Auto) 0.7 % Baso % (Auto) 0.4 % Neut # (Auto) 5.02 (1.4-6.5) K/uL Lymph # (Auto) 1.12 L (1.2-3.4) K/uL Talbot # (Auto) 0.69 H (0.11-0.59) K/uL Eos # (Auto) 0.05 (0-0.5) K/uL Baso # (Auto) 0.03 (0-0.2) K/uL Immature Gran # (Auto) 0.03 H (0.00-0.02) K/uL Macrocytosis Present PT 11.1 (9.0-12.0) Seconds INR 1.1 (0.9-1.1) APTT 29.3 (21.0-31.0) Seconds PTT Ratio 1.1 Sodium 136 (136-145) mmol/L Potassium 4.0 (3.5-5.1) mmol/L Chloride 105 (98-107) mmol/L Carbon Dioxide 28 (21-32) mmol/L Anion Gap 3.0 (3-11) BUN 12 (7-18) mg/dl Creatinine 0.57 L (0.6-1.2) mg/dl Est Cr Clr Drug Dosing 101.2 ml/min Est GFR ( Amer) 102.9 ml/min Est GFR (Non-Af Amer) 88.8 ml/min BUN/Creatinine Ratio 21.3 H (10-20) Glucose 105 H (70-99) mg/dl Calcium 9.7 (8.5-10.1) mg/dl Total Bilirubin 1.0 (0.2-1) mg/dl AST 46 H (15-37) U/L ALT 34 (12-78) U/L Alkaline Phosphatase 168 H (45-117) U/L Troponin I < 0.015 (0-0.045) ng/ml Total Protein 8.7 H (6.4-8.2) gm/dl Albumin 2.8 L (3.4-5.0) gm/dl Globulin 5.9 H (2.5-4.0) gm/dl Albumin/Globulin Ratio 0.5 L (0.9-2) Lipase 105 (73-393) U/L COVID-19 Eval Order SARS-CoV-2 (PCR) (Negative) 09/03/20 09/03/20 Range/Units 13:18 13:18 WBC (4.8-10.8) K/uL RBC (4.2-5.4) M/uL Hgb (12.0-16.0) g/dL Hct (37-47) % MCV (80-100) fL MCH (25-34) pg MCHC (32-36) g/dL RDW Std Deviation (36.4-46.3) fL RDW Coeff of Mile (11.5-14.5) % Plt Count (130-400) K/uL MPV (7.4-10.4) fL Immature Gran % (Auto) % Neut % (Auto) % Lymph % (Auto) % Talbot % (Auto) % Eos % (Auto) % Baso % (Auto) % Neut # (Auto) (1.4-6.5) K/uL Lymph # (Auto) (1.2-3.4) K/uL Talbot # (Auto) (0.11-0.59) K/uL Eos # (Auto) (0-0.5) K/uL Baso # (Auto) (0-0.2) K/uL Immature Gran # (Auto) (0.00-0.02) K/uL Macrocytosis PT (9.0-12.0) Seconds INR (0.9-1.1) APTT (21.0-31.0) Seconds PTT Ratio Sodium (136-145) mmol/L Potassium (3.5-5.1) mmol/L Chloride (98-107) mmol/L Carbon Dioxide (21-32) mmol/L Anion Gap (3-11) BUN (7-18) mg/dl Creatinine (0.6-1.2) mg/dl Est Cr Clr Drug Dosing ml/min Est GFR ( Amer) ml/min Est GFR (Non-Af Amer) ml/min BUN/Creatinine Ratio (10-20) Glucose (70-99) mg/dl Calcium (8.5-10.1) mg/dl Total Bilirubin (0.2-1) mg/dl AST (15-37) U/L ALT (12-78) U/L Alkaline Phosphatase (45-117) U/L Troponin I (0-0.045) ng/ml Total Protein (6.4-8.2) gm/dl Albumin (3.4-5.0) gm/dl Globulin (2.5-4.0) gm/dl Albumin/Globulin Ratio (0.9-2) Lipase (73-393) U/L COVID-19 Eval [address] Cov[address] [facility] SARS-CoV-2 (PCR) NEGATIVE (Negative) Administered Medications Discontinued Medications Oxycodone HCl (Oxycodone Hcl Ir 5 Mg Tab (Immediate Release)) 5 mg PO NOW STA Stop: 09/03/20 11:49 Last Admin: 09/03/20 11:56 Dose: 5 mg Documented by: [id number] Imaging Data Radiologist's Impression: Chest X-Ray 09/03/20 11:48 XR chest 1V portable HISTORY: Atypical Chest Pain COMPARISON: Chest 05/03/2020. FINDINGS: There is again noted a 2.5 cm irregular density within the right lung apex. No pneumothorax. No pleural effusions. The heart remains mildly enlarged. There is diffuse interstitial thickening, unchanged. IMPRESSION: 1. No change in the cardiomegaly and diffuse chronic interstitial thickening. 2. Redemonstration of the 2.5 cm irregular density within the right lung apex. This remains highly suspicious for a primary bronchogenic malignancy. ACT 112: Negative or not required by law. Electronically signed by: Ernie Silva M.D. 09/03/2020 12:09 PM Portal Vein US 09/03/20 13:12 ABDOMINAL ULTRASOUND COMPLETE HISTORY: ascities. COMPARISON: April 25, 2019 FINDINGS: Patent hepatic and portal veins with normal direction of the flow and spectral waveforms. Hepatopedal flow within the portal vein. Heterogeneous echogenicity of visualized liver parenchyma, microlobulated border and mild ascites are seen consistent with cirrhosis. IMPRESSION: 1. Patent portal and hepatic veins with normal direction of the flow. 2. Liver cirrhosis. Ascites. ACT 112: Negative or not required by law. 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
[2020-09-03 12:01] LABS: Basophils # (auto) 0.03 K/uL (0-0.2); Basophils % (auto) 0.4 %; Eosinophils # (auto) 0.05 K/uL (0-0.5); Eosinophils % (auto) 0.7 %; Hematocrit (blood only) 43.7 % (37-47); Hemoglobin 14.6 g/dL (12.0-16.0); Immature Granulocytes # (auto) 0.03 K/uL (0.00-0.02); Immature Granulocytes % (auto) 0.4 %; Lymphocytes # (auto) 1.12 K/uL (1.2-3.4); Lymphocytes % (auto) 16.1 %; Mean Corpuscular Hemoglobin 40.6 pg (25-34); Mean Corpuscular Hgb Conc 33.4 g/dL (32-36); Mean Corpuscular Volume 121.4 fL (80-100); Mean Platelet Volume 9.3 fL (7.4-10.4); Monocytes # (auto) 0.69 K/uL (0.11-0.59); Monocytes % (auto) 9.9 %; Neutrophils # (auto) 5.02 K/uL (1.4-6.5); Neutrophils % (auto) 72.5 %; Platelet Count 181 K/uL (130-400); RDW Coefficient of Variation 16.1 % (11.5-14.5); White Blood Count 6.94 K/uL (4.8-10.8)
--- NOTE | 2020-09-03 12:10 | XRay Report ---
XR chest 1V portable HISTORY: Atypical Chest Pain COMPARISON: Chest 05/03/2020. FINDINGS: There is again noted a 2.5 cm irregular density within the right lung apex. No pneumothorax . No pleural effusions. The heart remains mildly enlarged. There is diffuse interstitial thickening, unchanged. IMPRESSION: 1. No change in the cardiomegaly and diffuse chronic interstitial thickening. 2. Redemonstration of the 2.5 cm irregular density within the right lung apex. This remains highly downs spicious for a primary bronchogenic malignancy. ACT 112: Negative or not required by law. Electronically signed by: Ernie Silva M.D. 09/03/2020 12:09 PM
[2020-09-03 12:19] LABS: Alanine Aminotransferase 34 U/L (12-78); Albumin Level 2.8 gm/dl (3.4-5.0); Aspartate Aminotransferase 46 U/L (15-37); BUN Creatinine Ratio 21.3 (10-20); Blood Urea Nitrogen 12 mg/dl (7-18); Calcium 9.7 mg/dl (8.5-10.1); Carbon Dioxide 28 mmol/L (21-32); Chloride 105 mmol/L (98-107); Creatinine Clr Calc Pharmacy 101.2 ml/min; Est GFR (African American) 102.9 ml/min; Est GFR (Non-African American) 88.8 ml/min; Glucose 105 mg/dl (70-99); Lipase 105 U/L (73-393); Sodium 136 mmol/L (136-145)
[2020-09-03 12:24] LABS: Albumin Globulin Ratio 0.5 (0.9-2); Alkaline Phosphatase 168 U/L (45-117); Globulin 5.9 gm/dl (2.5-4.0); Total Protein 8.7 gm/dl (6.4-8.2); Troponin I < 0.015 ng/ml (0-0.045)
--- NOTE | 2020-09-03 12:30 | Gastrointestinal Consultation ---
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 With worsening ascites - appears decompensated (will investigate for inciting event, including r/o infection, venous occlusive disease). She doesn't appear encephalopathic; no evidence for GIB. MELD is 7. - Paracentesis today, please send fluid for cell count, culture, protein and albumin to calculate SAAG - Albumin 25%, 25 gm pre and post - Hepatic Duplex - r/o hepatic vein clot - Blood culture x 2, urine culture - IV Lasix - Continue Aldactone 50 mg daily - Restart Lactulose 15 mL BID; aim for 3-4 loose BMs daily - Continue Carvedilol - Continue daily pantoprazole - Daily MELD labs - Consider pulmonary consult for abnormal CXR (? 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 in the ER - pt in no acute respiratory distress, normal resp rate, abd obese with fluid palpable, ext mildly swollen MELD is 7 with normal platelets No reports of hematemesis/hematochezia She is alert and oriented to person, place time Does endorse missing lactulose doses and also taking more than 2 grams tylenol daily Etiology of acute decompensation unclear - ? medication, she had ascites in the past that appear to be somewhat refractory resistant and has required periodic taps in the past Would do tap of ascites with fluid sent PVT's can be transient- would obtain abd raf with doppler to ensure no hepatic vein clot (not mentioned on outpatient radiology done through [facility]) and determination of need for ac based on abd raf dopplers She is known to have g3 ev per last egd that have never bled Infectious workup with blood cultures. Counseled on improtance of avoidance of ethanol, limiting tylenol to less than 2 grams daily, avoiding nsaid's, avoiding other "natural supplements" and limiting salt intake to less than 2 grams daily. History of Present Illness History of Present Illness This is a 80 y/o female with NAFLD cirrhosis with ascites on Lasix and Aldactone, G3 esophageal varices, portal HTN gastropathy on carvedilol and PPI, HE on Lactulose, h/o lung cancer, tobacco use, back pain, and others below, not seen in GI clinic since 04/2019, who underwent US ABD today notable for moderate ascites, extensive nonocclusive PVT; and radiology staff reported pt had SOB concerning for volume overload. She was then referred to the ER. On arrival was hypertensive and tachycardic, however now normotensive with normal HR: afebrile. MELD is 7; no leukocytosis or anemia, PLT 181, renal function WNL, ALP 168, AST 46, ALT 34, T bili 1. CXR with no acute changes, 2.5 cm irregular density in the right lung, suspicious for bronchogenic malignancy. Pt reports she's been having worsening abd distention, leg edema, some wheezing/dyspnea and weight gain over the last month. Feeling okay otherwise. Having loose stools 3-4 x a day with lactulose, and recently has been skipping doses because of this. Having brown stools. No black or bloody stools. No abdominal pain but does feel bloated/distended. Last paracentesis in 2019. No UGI symptoms. No nausea, vomiting, hematemesis, fever, chills, CP, rashes, jaundice, icterus, pruritis, confusion. No new meds. Xifaxan rx'd previously however pt never got from pharmacy; not sure if it was covered. Recently has been dealing with chronic pain, and has been taking Tylenol sometimes sometimes > 3,500 mg daily. Not using NSAIDs, no ETOH, tobacco use. Last EGD 02/14/2020: Grade 3 esophageal varices, portal hypertensive gastropathy, normal examined duodenum. EUS 02/14/2020:- Evidence of a cholecystectomy. - There was dilation in the common bile duct which measured up to 16 mm. - There was abnormal echogenicity in the visualized portion of the liver. This was hypoechoic. Tissue has not been obtained. However, the endosonographic appearance is consistent with cirrhosis. - Endosonographic images of the left adrenal gland were unremarkable. - There was no sign of significant pathology in the entire pancreas. - No specimens collected. Last colonoscopy 2019: Diverticulosis in the sigmoid colon. Hemorrhoids. The examination was otherwise normal. No specimens collected. Allergies Allergy/AdvReac Type Severity Reaction Status Date / Time aspirin AdvReac Intermediate advised Verified 08/14/20 21:19 not to take d/t cirrhosis and gi bleed cortisone AdvReac Intermediate "WEIRD Verified 08/14/20 21:19 FEELING NSAIDS (Non-Steroidal AdvReac Intermediate advised Verified 08/14/20 21:19 Anti-Inflamma not to take d/t cirrhosis and gi bleed Home Medications Medication Instructions Recorded Confirmed Type cholecalciferol (vitamin D3) 125 5,000 unit PO QAM #30 tab 08/17/18 08/14/20 History mcg (5,000 unit) tablet cyanocobalamin (vitamin B-12) 1,000 mcg PO QAM 09/17/18 08/14/20 History [Vitamin B-12] nystatin 100,000 unit/gram topical 1 appln TOP BID #30 gm 10/15/19 08/14/20 Rx powder ferrous sulfate 325 mg (65 mg 325 mg PO BID #180 tab 01/09/20 08/14/20 Rx iron) tablet furosemide 20 mg tablet 20 mg PO QAM #90 tab 01/22/20 08/14/20 Rx spironolactone 25 mg tablet 25 mg PO BID #180 tab 02/19/20 08/14/20 Rx levothyroxine 125 mcg tablet 125 mcg PO QAM #90 tab 02/25/20 08/14/20 Rx blood-glucose meter #1 ea 04/01/20 08/14/20 Rx blood-glucose meter #1 ea 04/01/20 08/14/20 Rx diclofenac sodium 1 % topical gel 2 g TOPICAL QID PRN #100 g 05/12/20 08/14/20 Rx cyclobenzaprine 5 mg tablet 5 mg PO TID PRN #30 tab 05/25/20 08/14/20 Rx trazodone 50 mg tablet 100 mg PO HS #180 tab 06/22/20 08/14/20 Rx ondansetron 4 mg disintegrating 4 - 8 mg PO Q8H PRN #270 tab 07/02/20 08/14/20 Rx tablet meclizine 25 mg tablet 25 mg PO TID PRN #30 tab 07/08/20 08/14/20 Rx carvedilol 25 mg tablet 25 mg PO BID #180 tab 07/13/20 08/14/20 Rx pantoprazole 40 mg tablet,delayed 40 mg PO QAM #90 tab 07/13/20 08/14/20 Rx release pramipexole 0.25 mg tablet 0.25 mg PO QPM PRN #90 tab 07/17/20 08/14/20 Rx cyclobenzaprine 5 mg PO TID PRN #30 tab 08/14/20 Rx duloxetine 60 mg PO QAM 08/14/20 08/14/20 History methylprednisolone 4 mg tablets in See Rx Instructions .ROUTE 08/14/20 08/14/20 Rx a dose pack .COMPLEX #21 ea Patient History Medical History Ambulatory dysfunction Ascites Asthma Chronic reflux esophagitis COPD (chronic obstructive pulmonary disease) Degenerative arthritis of lumbar spine Depression with anxiety Diabetes type 2, controlled Diffuse myofascial pain syndrome Dyslipidemia Esophageal varices in cirrhosis Hypertension Hypothyroidism Irritable bowel syndrome 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 Obesity Opioid-induced hyperalgesia Osteoporosis Portal hypertension Pulmonary nodule Restless legs syndrome Surgical History History of cholecystectomy History of esophagogastroduodenoscopy (EGD) History of hip surgery History of left cataract extraction History of open reduction and internal fixation (ORIF) procedure right lower extremity History of right cataract surgery History of surgery on extremity RLE - HARDWARE PRESENT History of tonsillectomy History of tooth extraction History of total abdominal hysterectomy and bilateral salpingo-oophorectomy Secondary to fibroid History of tubal ligation Family History Mother Stroke Diabetes Daughter Diabetes Father Pneumonia Denies family history of Ovarian cancer Prostate cancer Myocardial infarction Breast cancer Colorectal cancer Social History Smoking Status: Former smoker Tobacco Type: Cigarettes packs per day: 1; Cigarettes Per Day: 1 ppd; Second Hand Exposure: No; Hx Alcohol Use: No Hx Substance Use: No Preferred Language: Bulgarian Communication Ability: Impaired Visual Impairment: No Limitations Hearing Ability: Normal Money Room Teller Required: No Beliefs That Will Affect Care: None marital status: / Current Living Situation: Alone current occupational status: retired Feels Safe at Home: Yes Childhood Exposure to Second-Hand Smoke: Yes caffeine: Yes during the past year weight has: increased > 10 lbs Dental Care, Regularly: No Physical Activity Frequency: Does not Exercise Seatbelt Use: always Assistive Devices: Denture - Upper and Walker Review of Systems Review of Systems: All systems reviewed & are unremarkable except as noted in HPI & below Physical Exam Constitutional: WD/WN, vitals as above no acute distress Respiratory: normal respiratory effort + scattered wheezes Cardiovascular: Rate/Rhythm: regular rate and regular rhythm 2+ bilateral leg edema Gastrointestinal (Abdomen): Inspection/Auscultation: normal bowel sounds; abdomen not distended Percussion/Palpation: abdomen soft; no guarding and abdomen not rigid + midline abd wall erythema, warmth; nontender. Large ascites; nontender Neurologic: No asterixis Psychiatric: A+Ox3, euthymic affect Results & Data ([facility]) Vital Signs (Past 12 Hours) Vital Signs Temp Pulse Resp BP Pulse Ox 09/03/20 11:46 103 H 25 H 139/110 H 09/03/20 11:40 91 H 27 H 97 09/03/20 11:37 90 19 168/96 H 96 09/03/20 11:16 36.5 C 89 20 166/104 H 96 Laboratory Results 09/03/20 09/03/20 09/03/20 Range/Units 12:18 11:43 11:43 WBC 6.94 (4.8-10.8) K/uL RBC 3.60 L (4.2-5.4) M/uL Hgb 14.6 (12.0-16.0) g/dL Hct 43.7 (37-47) % MCV 121.4 H (80-100) fL MCH 40.6 H (25-34) pg MCHC 33.4 (32-36) g/dL RDW Std Deviation 72.0 H (36.4-46.3) fL RDW Coeff of Mile 16.1 H (11.5-14.5) % Plt Count 181 (130-400) K/uL MPV 9.3 (7.4-10.4) fL Immature Gran % (Auto) 0.4 % Neut % (Auto) 72.5 % Lymph % (Auto) 16.1 % Graham % (Auto) 9.9 % Eos % (Auto) 0.7 % Baso % (Auto) 0.4 % Neut # (Auto) 5.02 (1.4-6.5) K/uL Lymph # (Auto) 1.12 L (1.2-3.4) K/uL Graham # (Auto) 0.69 H (0.11-0.59) K/uL Eos # (Auto) 0.05 (0-0.5) K/uL Baso # (Auto) 0.03 (0-0.2) K/uL Immature Gran # (Auto) 0.03 H (0.00-0.02) K/uL Macrocytosis Present PT 11.1 (9.0-12.0) Seconds INR 1.1 (0.9-1.1) APTT 29.3 (21.0-31.0) Seconds PTT Ratio 1.1 Sodium 136 (136-145) mmol/L Potassium 4.0 (3.5-5.1) mmol/L Chloride 105 (98-107) mmol/L Carbon Dioxide 28 (21-32) mmol/L Anion Gap 3.0 (3-11) BUN 12 (7-18) mg/dl Creatinine 0.57 L (0.6-1.2) mg/dl Est Cr Clr Drug Dosing 101.2 ml/min Est GFR ( Amer) 102.9 ml/min Est GFR (Non-Af Amer) 88.8 ml/min BUN/Creatinine Ratio 21.3 H (10-20) Glucose 105 H (70-99) mg/dl Calcium 9.7 (8.5-10.1) mg/dl Total Bilirubin 1.0 (0.2-1) mg/dl AST 46 H (15-37) U/L ALT 34 (12-78) U/L Alkaline Phosphatase 168 H (45-117) U/L Troponin I < 0.015 (0-0.045) ng/ml Total Protein 8.7 H (6.4-8.2) gm/dl Albumin 2.8 L (3.4-5.0) gm/dl Globulin 5.9 H (2.5-4.0) gm/dl Albumin/Globulin Ratio 0.5 L (0.9-2) Lipase 105 (73-393) U/L Diagnostic Findings CXR: 1. No change in the cardiomegaly and diffuse chronic interstitial thickening. 2. Redemonstration of the 2.5 cm irregular density within the right lung apex. This remains highly suspicious for a primary bronchogenic malignancy. US ABD: FINDINGS Technically limited examination due to patient discomfort Pancreas: Pancreas is poorly visualized. Liver: Liver demonstrates heterogeneous echotexture with nodular surface contour compatible with cirrhosis. There is nonocclusive thrombus within the dilated main portal vein. Intra and extrahepatic biliary ductal dilation is noted. The extrahepatic common bile duct measures 20 mm. Gallbladder and Bile ducts: The gallbladder surgically absent. Common bile duct measures 20 mm. Right Kidney: Normal size and echotexture. No significant collecting system dilatation or stones evident. The right kidney measures 10.1 cm in length. Other: There is moderate ascites in all 4 quadrants. IMPRESSION IMPRESSION 1. Cirrhosis with changes of portal hypertension. 2. Age indeterminate nonocclusive thrombus within dilated main portal vein. 3. Biliary ductal dilation. 4. Moderate ascites. (1) Ascites Ascites type: other type Qualified Code(s): R18.8 - Other ascites
[2020-09-03 12:36] LABS: Macrocytosis Present
[2020-09-03 12:37] LABS: INR 1.1 (0.9-1.1); Partial Thromboplastin Ratio 1.1; Partial Thromboplastin Time 29.3 Seconds (21.0-31.0); Prothrombin Time 11.1 Seconds (9.0-12.0)
--- NOTE | 2020-09-03 14:33 | History & Physical Report ---
Date of Service September 03, 2020 Assessment & Plan (1) Ascites: Patient to be admitted for further work-up GI has already seen the patient, plan for paracentesis with fluid studies We will follow with the recommendations post procedure For now, continue medications as per outpatient including lactulose, spironolactone, and furosemide (2) Diabetes type 2, controlled: Diet controlled per documentation Diabetic diet, will check blood sugars, hemoglobin A1c (3) Lung nodule: Chest x-ray on 09/03 notes a 2.5 cm irregular density in the right lung apex which is concerning for primary bronchogenic malignancy. Looking back, I see the same mass was noted in 04/30 and 04/29 in a similar size with similar concern. There is no CT report noted, would consider routine CT once acute issues resolved to confirm stability of the solitary lung nodule. History of Present Illness Primary Care Provider: Courtney Jules DO This is a 80-year-old female with past medical history of Santos cirrhosis with ascites varices that presents today complaining of worsening abdominal girth. Patient is pleasant a good historian. Patient's liver disease was well compensated until recently, she had presented to the GI office earlier today. Patient was sent for abdominal ultrasound which showed moderate ascites which is worse than her usual, GI recommended presentation to the emergency room for further evaluation secondary to her decompensation. Patient's main complaint today shortness of breath, with some dyspnea on exertion. She attributes to the increased volume and girth of her abdomen. She denies any fevers or chills. She denies any chest pain, cough, or constipation. She does have some diarrhea which she attributes to her ongoing treatment with lactulose. She denies any abdominal pain. She is already seen by GI with plans for a paracentesis later today with fluid studies and cultures. At this time, patient appears to be comfortable, O2 sat is 94% on room air and other vitals are stable. Allergies Allergy/AdvReac Type Severity Reaction Status Date / Time aspirin AdvReac Intermediate advised Verified 08/14/20 21:19 not to take d/t cirrhosis and gi bleed cortisone AdvReac Intermediate "WEIRD Verified 08/14/20 21:19 FEELING NSAIDS (Non-Steroidal AdvReac Intermediate advised Verified 08/14/20 21:19 Anti-Inflamma not to take d/t cirrhosis and gi bleed Home Medications Medication Instructions Recorded Confirmed Type cholecalciferol (vitamin D3) 125 5,000 unit PO QAM #30 tab 08/17/18 08/14/20 History mcg (5,000 unit) tablet cyanocobalamin (vitamin B-12) 1,000 mcg PO QAM 09/17/18 08/14/20 History [Vitamin B-12] nystatin 100,000 unit/gram topical 1 appln TOP BID #30 gm 10/15/19 08/14/20 Rx powder ferrous sulfate 325 mg (65 mg 325 mg PO BID #180 tab 01/09/20 08/14/20 Rx iron) tablet furosemide 20 mg tablet 20 mg PO QAM #90 tab 01/22/20 08/14/20 Rx spironolactone 25 mg tablet 25 mg PO BID #180 tab 02/19/20 08/14/20 Rx levothyroxine 125 mcg tablet 125 mcg PO QAM #90 tab 02/25/20 08/14/20 Rx blood-glucose meter #1 ea 04/01/20 08/14/20 Rx blood-glucose meter #1 ea 04/01/20 08/14/20 Rx diclofenac sodium 1 % topical gel 2 g TOPICAL QID PRN #100 g 05/12/20 08/14/20 Rx trazodone 50 mg tablet 100 mg PO HS #180 tab 06/22/20 08/14/20 Rx ondansetron 4 mg disintegrating 4 - 8 mg PO Q8H PRN #270 tab 07/02/20 08/14/20 Rx tablet meclizine 25 mg tablet 25 mg PO TID PRN #30 tab 07/08/20 08/14/20 Rx carvedilol 25 mg tablet 25 mg PO BID #180 tab 07/13/20 08/14/20 Rx pantoprazole 40 mg tablet,delayed 40 mg PO QAM #90 tab 07/13/20 08/14/20 Rx release pramipexole 0.25 mg tablet 0.25 mg PO QPM PRN #90 tab 07/17/20 08/14/20 Rx cyclobenzaprine 5 mg PO TID PRN #30 tab 08/14/20 Rx duloxetine 60 mg PO QAM 08/14/20 08/14/20 History methylprednisolone 4 mg tablets in See Rx Instructions .ROUTE 08/14/20 08/14/20 Rx a dose pack .COMPLEX #21 ea Past Med/Surg History Medical History Ambulatory dysfunction Ascites Asthma Chronic reflux esophagitis COPD (chronic obstructive pulmonary disease) Degenerative arthritis of lumbar spine Depression with anxiety Diabetes type 2, controlled Diffuse myofascial pain syndrome Dyslipidemia Esophageal varices in cirrhosis Hypertension Hypothyroidism Irritable bowel syndrome 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 Obesity Opioid-induced hyperalgesia Osteoporosis Portal hypertension Pulmonary nodule Restless legs syndrome Surgical History History of cholecystectomy History of esophagogastroduodenoscopy (EGD) History of hip surgery History of left cataract extraction History of open reduction and internal fixation (ORIF) procedure right lower extremity History of right cataract surgery History of surgery on extremity RLE - HARDWARE PRESENT History of tonsillectomy History of tooth extraction History of total abdominal hysterectomy and bilateral salpingo-oophorectomy Secondary to fibroid History of tubal ligation Family History Mother Stroke Diabetes Daughter Diabetes Father Pneumonia Denies family history of Ovarian cancer Prostate cancer Myocardial infarction Breast cancer Colorectal cancer Social History Smoking Status: Former smoker Tobacco Type: Cigarettes packs per day: 1; Cigarettes Per Day: 1 ppd; Second Hand Exposure: No; Hx Alcohol Use: No Hx Substance Use: No Preferred Language: Urdu Communication Ability: Impaired Visual Impairment: No Limitations Hearing Ability: Normal Pediatric Dermatologist Required: No Beliefs That Will Affect Care: None marital status: / Current Living Situation: Alone current occupational status: retired Feels Safe at Home: Yes Childhood Exposure to Second-Hand Smoke: Yes caffeine: Yes during the past year weight has: increased > 10 lbs Dental Care, Regularly: No Physical Activity Frequency: Does not Exercise Seatbelt Use: always Assistive Devices: Denture - Upper and Walker Review of Systems Constitutional: no fever, no chills, no weakness, no weight loss and no weight gain Eyes: as per Subjective / HPI Respiratory: no cough, no chest congestion, no dyspnea and no dyspnea on exertion Cardiovascular: no chest pain, no orthopnea, no palpitations, no lightheadedness and no edema Gastrointestinal: + diarrhea/loose stools; no abdominal pain, no nausea, no vomiting and no constipation Increase in abdominal girth Genitourinary: no dysuria, no difficulty urinating, no urinary frequency, no urinary hesitancy, no urinary urgency and no flank pain Musculoskeletal: no back pain, no neck pain, no joint pain, no stiffness and no myalgia Integumentary: no rash Neurologic: no gait abnormality, no unsteadiness, no falls and no generalized weakness Physical Exam Constitutional: cooperative; no acute distress Neck: trachea midline, no thyromegaly Respiratory: normal respiratory effort Auscultation: lungs clear to auscu ltation bilaterally; no crackles, no rales, no rhonchi and no wheezes Cardiovascular: Rate/Rhythm: regular rate and regular rhythm Heart Sounds: normal S1, normal S2 and + murmur Gastrointestinal (Abdomen): Inspection/Auscultation: + abdomen distended Percussion/Palpation: abdomen soft, + dullness to percussion and + fluid wave; abdomen nontender, no guarding, abdomen not rigid and no hepatosplenomegaly Skin: no rashes, warm and dry Results & Data Results & Data ([facility]) Vital Signs (Past 12 Hours) Vital Signs Temp Pulse Resp BP Pulse Ox 09/03/20 12:31 85 18 94 09/03/20 12:30 84 15 132/74 93 09/03/20 12:20 85 15 96 09/03/20 12:18 86 15 141/85 H 94 09/03/20 12:10 89 16 95 09/03/20 12:01 88 15 97 09/03/20 12:00 96 H 28 H 144/95 H 96 09/03/20 11:50 88 21 09/03/20 11:47 89 22 09/03/20 11:46 103 H 25 H 139/110 H 09/03/20 11:40 91 H 27 H 97 09/03/20 11:37 90 19 168/96 H 96 09/03/20 11:16 36.5 C 89 20 166/104 H 96 Diagnostic Findings XR chest 1V portable HISTORY: Atypical Chest Pain COMPARISON: Chest 05/03/2020. FINDINGS: There is again noted a 2.5 cm irregular density within the right lung apex. No pneumothorax. No pleural effusions. The heart remains mildly enlarged. There is diffuse interstitial thickening, unchanged. IMPRESSION: 1. No change in the cardiomegaly and diffuse chronic interstitial thickening. 2. Redemonstration of the 2.5 cm irregular density within the right lung apex. This remains highly suspicious for a primary bronchogenic malignancy. PG Care Time/CCT Total # of Minutes Spent Total Time Spent with Patient: Total time spent is greater than 50% in coordination of care (as documented) at patient's floor/unit and/or counseling patient: Coding Level of Care Code 50326 Initial Inpt Care Lvl 3 Diagnoses Ascites R18.8 Ascites type: other type Diabetes type 2, controlled E11.9 Lung nodule R91.1 (1) Ascites Ascites type: other type Qualified Code(s): R18.8 - Other ascites
--- NOTE | 2020-09-03 15:37 | Ultrasound Report ---
ABDOMINAL ULTRASOUND COMPLETE HISTORY: ascities. COMPARISON: April 25, 2019 FINDINGS: Patent hepatic and portal veins with normal direction of the flow and spectral waveforms. Hepatopedal flow within the portal vein. Heterogeneous echogenicity of visualized liver parenchyma, microlobulated border and mild ascites are seen consistent with cirrhosis. IMPRESSION: 1. Patent portal and hepatic veins with normal direction of the flow. 2. Liver cirrhosis. Ascites. ACT 112: Negative or not required by law. Electronically signed by: Isabelle Larson DO 09/03/2020 3:35 PM
--- NOTE | 2020-09-03 15:46 | Electrocardiogram Report ---
Test Reason : Blood Pressure : / mmHG Vent. Rate : 092 BPM Atrial Rate : 097 BPM P-R Int : 198 ms QRS Dur : 080 ms QT Int : 384 ms P-R-T Axes : 050 056 019 degrees QTc Int : 474 ms Sinus rhythm with Premature atrial complexes Poor R wave progression, consider anterior [place] vs. lead placement vs. LVH Abnormal ECG When compared with ECG of 03-MAY-2020 18:33, Present Nonspecific T wave abnormality no longer evident in Anterolateral leads Confirmed by Russell Sandoval ([id number]) on 09/03/2020 3:46:09 PM Referred By: Tiffany Steele Confirmed By:Russell Sandoval
[2020-09-03] MEDS ORDERED: GLUCOSE 40% GEL 15 GM TUBE PO PRN (16:08)
[2020-09-03] MEDS ORDERED: DEXTROSE 50% 50 ML SYRINGE IV PRN (16:08)
[2020-09-03] MEDS ORDERED: GLUCOSE 10 TABS/TUBE PO PRN (16:08)
[2020-09-03] MEDS ORDERED: GLUCAGON FOR INJ 1 MG VIAL SQ PRN (16:08)
[2020-09-03] MEDS ORDERED: CARBOHYDRATES FOR HYPOGLYCEMIA PO PRN (16:08)
[2020-09-03] MEDS ORDERED: ONDANSETRON INJ 2 MG/ML 2 ML VIAL IV PRN (16:08)
[2020-09-03] MEDS: traMADol HCL 50 MG TABLET PO PRN ×2 (17:01→21:17)
[2020-09-03] MEDS: SPIRONOLACTONE 25 MG TAB PO SCH (18:15)
[2020-09-03] MEDS ORDERED: MECLIZINE HCL 25 MG TAB PO PRN (20:11)
[2020-09-03] MEDS: GABAPENTIN 300 MG CAP PO SCH (21:17)
[2020-09-03] MEDS: carvediloL 25 MG TAB PO SCH (21:18)
[2020-09-03] MEDS: FERROUS SULFATE 325 MG TAB PO SCH (21:18)
[2020-09-03] MEDS ORDERED: CALCIUM CARBONATE 500 MG CHEWABLE TAB PO PRN (22:47)
[2020-09-03] MEDS ORDERED: LIDOCAINE 5% 1 PATCH TD STA (22:48)
[2020-09-03] MEDS ORDERED: MoRPHine SULFATE 2 MG/ML CARP IV STA (22:48)
[2020-09-04 06:04] LABS: Basophils # (auto) 0.01 K/uL (0-0.2); Basophils % (auto) 0.2 %; Eosinophils # (auto) 0.04 K/uL (0-0.5); Eosinophils % (auto) 0.6 %; Hematocrit (blood only) 37.8 % (37-47); Hemoglobin 12.3 g/dL (12.0-16.0); Immature Granulocytes # (auto) 0.02 K/uL (0.00-0.02); Immature Granulocytes % (auto) 0.3 %; Lymphocytes # (auto) 1.18 K/uL (1.2-3.4); Lymphocytes % (auto) 19.1 %; Mean Corpuscular Hemoglobin 40.2 pg (25-34); Mean Corpuscular Hgb Conc 32.5 g/dL (32-36); Mean Corpuscular Volume 123.5 fL (80-100); Mean Platelet Volume 9.3 fL (7.4-10.4); Monocytes # (auto) 0.58 K/uL (0.11-0.59); Monocytes % (auto) 9.4 %; Neutrophils # (auto) 4.34 K/uL (1.4-6.5); Neutrophils % (auto) 70.4 %; Platelet Count 156 K/uL (130-400); RDW Coefficient of Variation 15.8 % (11.5-14.5); RDW Standard Deviation 71.1 fL (36.4-46.3); Red Blood Count 3.06 M/uL (4.2-5.4); White Blood Count 6.17 K/uL (4.8-10.8)
[2020-09-04] MEDS ORDERED: LEVOTHYROXINE SODIUM 125 MCG TABLET PO SCH (06:30)
[2020-09-04 06:37] LABS: BUN Creatinine Ratio 22.7 (10-20); Calcium 8.5 mg/dl (8.5-10.1); Creatinine Clr Calc Pharmacy 105.3 ml/min; Est GFR (African American) 102.3 ml/min; Est GFR (Non-African American) 88.3 ml/min; Magnesium 1.8 mg/dl (1.8-2.4); Potassium 4.5 mmol/L (3.5-5.1)
[2020-09-04 06:46] LABS: Estimated Average Glucose 111 mg/dl; Hemoglobin A1C 5.5 % (4.5-5.6)
[2020-09-04 06:51] LABS: Macrocytosis Present
[2020-09-04] MEDS: ALBUMIN 25% 12.5 GM/50 ML VIAL IV SCH ×4 (07:52→11:59)
[2020-09-04] MEDS ORDERED: XYLOCAINE 1%/SOD BICARB 20 ML VIAL INFIL ONE (08:38)
[2020-09-04 08:42] LABS: Reticulocyte % 2.7 % (0.5-2.0); Reticulocytes # 0.08 10^6/uL (0.02-0.10)
[2020-09-04] MEDS ORDERED: FUROSEMIDE 20 MG TAB PO SCH (09:00)
[2020-09-04] MEDS ORDERED: CHOLECALCIFEROL 1,000 UNITS 25 MCG TAB PO SCH (09:00)
[2020-09-04] MEDS ORDERED: CYANOCOBALAMIN 500 MCG TABLET (VITAMIN B-12) PO SCH (09:00)
[2020-09-04] MEDS ORDERED: ALBUMIN 25% 12.5 GM/50 ML VIAL IV SCH (10:00)
--- NOTE | 2020-09-04 10:40 | Ultrasound Report ---
PARACENTESIS UNDER ULTRASOUND GUIDANCE CLINICAL HISTORY: 6 LITERS DIAGNOSTIC AND THERAPEUTIC COMPARISON STUDY: No previous studies for comparison. FINDINGS: The risks, benefits, and alternatives to the procedure were discussed with the patient. Laila abelardo informed consent was obtained. Following real-time ultrasound localization, the skin was prepped and draped. Following local anesthesia with Xylocaine, the sheath paracentesis needle was inserted a nd approximately 6.5 liters of yellowish fluid was removed by vacuum suction. The patient tolerated the procedure well and left the department in satisfactory condition. IMPRESSION: Successful ultrasound-guided paracentesis with removal of approximately 6.5 liters of asc itic fluid. ACT 112: Negative or not required by law. The above report was generated using voice recognition software. It may contain grammatical, syntax o r spelling errors. Electronically signed by: Isabelle Larson DO 09/04/2020 10:38 AM
[2020-09-04] MEDS: traMADol HCL 50 MG TABLET PO PRN (11:11)
[2020-09-04] MEDS: FERROUS SULFATE 325 MG TAB PO SCH (11:12)
[2020-09-04] MEDS: GABAPENTIN 300 MG CAP PO SCH (11:12)
[2020-09-04] MEDS: SPIRONOLACTONE 25 MG TAB PO SCH (11:12)
[2020-09-04] MEDS: carvediloL 25 MG TAB PO SCH (11:14)
[2020-09-04 11:37] LABS: Appearance Peritoneal Fluid HAZY; Basophils, Fluid 0 %; Color Peritoneal Fluid PALE YELLOW; Eosinophils, Fluid 0 %; Lymphocytes, Fluid 52 %; Mono,Macrophage,Mesothelial 37 %; Neutrophils, Fluid 11 %; RBC Peritoneal Fluid (A) < 3000 /uL; WBC Peritoneal Fluid (A) 206 /ul (0-300)
--- NOTE | 2020-09-04 12:15 | Gastroenterology Progress Note ---
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 Pt admitted with worsening ascites. Hepatic Doppler yesterday revealed patent portal and hepatic veins with normal direction of the flow; does not appear that she has any PVT. She underwent 6.5 L tap today and feels improved; was given albumin pre and post. She doesn't appear encephalopathic; no evidence for GIB. MELD is 7. -Await final fluid culture from paracentesis today, blood and urine cultures -Continue daily Lasix - Continue Aldactone 50 mg daily - Should continue lactulose 15 mL BID; aim for 3-4 loose BMs daily - Continue daily carvedilol - Continue daily pantoprazole - Would recommend pulmonary consult for abnormal CXR (? bronchogenic malignancy) -Recommend she follow-up as an outpatient with GI team, had not been seen since April 2019 - No GI contraindication for discharge - Low NA diet, less than 2G - Reiterated to pt importance of limiting Tylenol to < 2 gm daily; may need pain management assistance to optimize her regimen and avoid hepatotoxins - Daily weights - No NSAIDs - No alcohol - Due for EGD/Colonoscopy later in 2020 Admission and Anticipated Discharge Date Admission Date: September 03, 2020 Supervising Physician Co-Signing Physician Notes I saw and evaluated the patient, plan as recommended by . Please call with any questions or concerns, GI to sign off Subjective Patient seen and examined, chart reviewed. Patient doing well overnight, tolerated regular lunch today. Underwent 6.5 L paracentesis earlier this morning. Does not appear infected, awaiting final cultures. Had loose BM yesterday. Labs are stable today Denies abdominal pain, nausea vomiting, hematemesis, melena or hematochezia, fevers or chills, chest pain or shortness breath. Review of Systems Review of Systems: All systems reviewed & are unremarkable except as noted in HPI & below Physical Exam Constitutional: WD/WN, vitals as above no acute distress Respiratory: normal respiratory effort Cardiovascular: Rate/Rhythm: regular rate and regular rhythm Gastrointestinal (Abdomen): Inspection/Auscultation: normal bowel sounds; abdomen not distended Percussion/Palpation: abdomen soft; no guarding and abdomen not rigid +obese abdomen, improvement in ascites from yesterday Skin: no rashes, warm and dry Psychiatric: A+Ox3, euthymic affect Results & Data ([facility]) Vital Signs (Past 12 Hours) Vital Signs Temp Pulse Pulse Resp BP Pulse Ox 09/04/20 11:24 37.4 C 68 20 136/79 94 09/04/20 07:33 36.8 C 67 20 136/78 92 09/04/20 07:31 69 Laboratory Results 09/04/20 09/04/20 09/04/20 Range/Units Unknown Unknown Unknown WBC (4.8-10.8) K/uL RBC (4.2-5.4) M/uL Hgb (12.0-16.0) g/dL Hct (37-47) % MCV (80-100) fL MCH (25-34) pg MCHC (32-36) g/dL RDW Std Deviation (36.4-46.3) fL RDW Coeff of Mile (11.5-14.5) % Plt Count (130-400) K/uL MPV (7.4-10.4) fL Immature Gran % (Auto) % Neut % (Auto) % Lymph % (Auto) % [place] % (Auto) % Eos % (Auto) % Baso % (Auto) % Reticulocyte % (Auto) (0.5-2.0) % Neut # (Auto) (1.4-6.5) K/uL Lymph # (Auto) (1.2-3.4) K/uL [place] # (Auto) (0.11-0.59) K/uL Eos # (Auto) (0-0.5) K/uL Baso # (Auto) (0-0.2) K/uL Reticulocyte # (0.02-0.10) 10^6/uL Immature Gran # (Auto) (0.00-0.02) K/uL Hypersegmented Neuts Macrocytosis Peripher Smr Path Cons PT (9.0-12.0) Seconds INR (0.9-1.1) APTT (21.0-31.0) Seconds PTT Ratio Sodium (136-145) mmol/L Potassium (3.5-5.1) mmol/L Chloride (98-107) mmol/L Carbon Dioxide (21-32) mmol/L Anion Gap (3-11) BUN (7-18) mg/dl Creatinine (0.6-1.2) mg/dl Est Cr Clr Drug Dosing ml/min Est GFR ( Amer) ml/min Est GFR (Non-Af Amer) ml/min BUN/Creatinine Ratio (10-20) Glucose (70-99) mg/dl POC Glucose (70-99) mg/dl Estimat Average Glucose mg/dl Hemoglobin A1c (4.5-5.6) % Calcium (8.5-10.1) mg/dl Magnesium (1.8-2.4) mg/dl Total Bilirubin (0.2-1) mg/dl AST (15-37) U/L ALT (12-78) U/L Alkaline Phosphatase (45-117) U/L Troponin I (0-0.045) ng/ml Total Protein (6.4-8.2) gm/dl Albumin (3.4-5.0) gm/dl Globulin (2.5-4.0) gm/dl Albumin/Globulin Ratio (0.9-2) Lipase (73-393) U/L Vitamin B12 (193-986) pg/ml Folate (>5.38) ng/ml Fluid Neutrophils % 11 % Fluid Lymphocytes % 52 % Fluid Eosinophils % 0 % Fluid Basophils % 0 % Fluid Meso/Macro/Collingsworth % 37 % Fluid Comment Peritoneal Color PALE YELLOW Peritoneal Appearance HAZY Peritoneal WBC 206 (0-300) /ul Peritoneal RBC < 3000 /uL Peritoneal Tot Protein 1.2 g/dl Peritoneal Albumin 0.6 g/dl Serum Copper COVID-19 Eval Order SARS-CoV-2 (PCR) (Negative) 09/04/20 09/04/20 09/04/20 Range/Units 11:32 08:19 08:19 WBC (4.8-10.8) K/uL RBC (4.2-5.4) M/uL Hgb (12.0-16.0) g/dL Hct (37-47) % MCV (80-100) fL MCH (25-34) pg MCHC (32-36) g/dL RDW Std Deviation (36.4-46.3) fL RDW Coeff of Mile (11.5-14.5) % Plt Count (130-400) K/uL MPV (7.4-10.4) fL Immature Gran % (Auto) % Neut % (Auto) % Lymph % (Auto) % [place] % (Auto) % Eos % (Auto) % Baso % (Auto) % Reticulocyte % (Auto) 2.7 H (0.5-2.0) % Neut # (Auto) (1.4-6.5) K/uL Lymph # (Auto) (1.2-3.4) K/uL [place] # (Auto) (0.11-0.59) K/uL Eos # (Auto) (0-0.5) K/uL Baso # (Auto) (0-0.2) K/uL Reticulocyte # 0.08 (0.02-0.10) 10^6/uL Immature Gran # (Auto) (0.00-0.02) K/uL Hypersegmented Neuts Macrocytosis Peripher Smr Path Cons Pending PT (9.0-12.0) Seconds INR (0.9-1.1) APTT (21.0-31.0) Seconds PTT Ratio Sodium (136-145) mmol/L Potassium (3.5-5.1) mmol/L Chloride (98-107) mmol/L Carbon Dioxide (21-32) mmol/L Anion Gap (3-11) BUN (7-18) mg/dl Creatinine (0.6-1.2) mg/dl Est Cr Clr Drug Dosing ml/min Est GFR ( Amer) ml/min Est GFR (Non-Af Amer) ml/min BUN/Creatinine Ratio (10-20) Glucose (70-99) mg/dl POC Glucose 87 (70-99) mg/dl Estimat Average Glucose mg/dl Hemoglobin A1c (4.5-5.6) % Calcium (8.5-10.1) mg/dl Magnesium (1.8-2.4) mg/dl Total Bilirubin (0.2-1) mg/dl AST (15-37) U/L ALT (12-78) U/L Alkaline Phosphatase (45-117) U/L Troponin I (0-0.045) ng/ml Total Protein (6.4-8.2) gm/dl Albumin (3.4-5.0) gm/dl Globulin (2.5-4.0) gm/dl Albumin/Globulin Ratio (0.9-2) Lipase (73-393) U/L Vitamin B12 (193-986) pg/ml Folate 13.20 (>5.38) ng/ml Fluid Neutrophils % % Fluid Lymphocytes % % Fluid Eosinophils % % Fluid Basophils % % Fluid Meso/Macro/Coll[place]worth % % Fluid Comment Peritoneal Color Peritoneal Appearance Peritoneal WBC (0-300) /ul Peritoneal RBC /uL Peritoneal Tot Protein g/dl Peritoneal Albumin g/dl Serum Copper COVID-19 Eval Order SARS-CoV-2 (PCR) (Negative) 09/04/20 09/04/20 09/04/20 Range/Units 08:19 08:19 06:01 WBC (4.8-10.8) K/uL RBC (4.2-5.4) M/uL Hgb (12.0-16.0) g/dL Hct (37-47) % MCV (80-100) fL MCH (25-34) pg MCHC (32-36) g/dL RDW Std Deviation (36.4-46.3) fL RDW Coeff of Mile (11.5-14.5) % Plt Count (130-400) K/uL MPV (7.4-10.4) fL Immature Gran % (Auto) % Neut % (Auto) % Lymph % (Auto) % [place] % (Auto) % Eos % (Auto) % Baso % (Auto) % Reticulocyte % (Auto) (0.5-2.0) % Neut # (Auto) (1.4-6.5) K/uL Lymph # (Auto) (1.2-3.4) K/uL [place] # (Auto) (0.11-0.59) K/uL Eos # (Auto) (0-0.5) K/uL Baso # (Auto) (0-0.2) K/uL Reticulocyte # (0.02-0.10) 10^6/uL Immature Gran # (Auto) (0.00-0.02) K/uL Hypersegmented Neuts Macrocytosis Peripher Smr Path Cons PT (9.0-12.0) Seconds INR (0.9-1.1) APTT (21.0-31.0) Seconds PTT Ratio Sodium (136-145) mmol/L Potassium (3.5-5.1) mmol/L Chloride (98-107) mmol/L Carbon Dioxide (21-32) mmol/L Anion Gap (3-11) BUN (7-18) mg/dl Creatinine (0.6-1.2) mg/dl Est Cr Clr Drug Dosing ml/min Est GFR ( Amer) ml/min Est GFR (Non-Af Amer) ml/min BUN/Creatinine Ratio (10-20) Glucose (70-99) mg/dl POC Glucose 110 H (70-99) mg/dl Estimat Average Glucose mg/dl Hemoglobin A1c (4.5-5.6) % Calcium (8.5-10.1) mg/dl Magnesium (1.8-2.4) mg/dl Total Bilirubin (0.2-1) mg/dl AST (15-37) U/L ALT (12-78) U/L Alkaline Phosphatase (45-117) U/L Troponin I (0-0.045) ng/ml Total Protein (6.4-8.2) gm/dl Albumin (3.4-5.0) gm/dl Globulin (2.5-4.0) gm/dl Albumin/Globulin Ratio (0.9-2) Lipase (73-393) U/L Vitamin B12 523 (193-986) pg/ml Folate (>5.38) ng/ml Fluid Neutrophils % % Fluid Lymphocytes % % Fluid Eosinophils % % Fluid Basophils % % Fluid Meso/Macro/Coll[place] % % Fluid Comment Peritoneal Color Peritoneal Appearance Peritoneal WBC (0-300) /ul Peritoneal RBC /uL Peritoneal Tot Protein g/dl Peritoneal Albumin g/dl Serum Copper Pending COVID-19 Eval Order SARS-CoV-2 (PCR) (Negative) 09/04/20 09/04/20 09/04/20 Range/Units 05:33 05:33 05:33 WBC 6.17 (4.8-10.8) K/uL RBC 3.06 L (4.2-5.4) M/uL Hgb 12.3 (12.0-16.0) g/dL Hct 37.8 (37-47) % MCV 123.5 H (80-100) fL MCH 40.2 H (25-34) pg MCHC 32.5 (32-36) g/dL RDW Std Deviation 71.1 H (36.4-46.3) fL RDW Coeff of Mile 15.8 H (11.5-14.5) % Plt Count 156 (130-400) K/uL MPV 9.3 (7.4-10.4) fL Immature Gran % (Auto) 0.3 % Neut % (Auto) 70.4 % Lymph % (Auto) 19.1 % [place] % (Auto) 9.4 % Eos % (Auto) 0.6 % Baso % (Auto) 0.2 % Reticulocyte % (Auto) (0.5-2.0) % Neut # (Auto) 4.34 (1.4-6.5) K/uL Lymph # (Auto) 1.18 L (1.2-3.4) K/uL [place] # (Auto) 0.58 (0.11-0.59) K/uL Eos # (Auto) 0.04 (0-0.5) K/uL Baso # (Auto) 0.01 (0-0.2) K/uL Reticulocyte # (0.02-0.10) 10^6/uL Immature Gran # (Auto) 0.02 (0.00-0.02) K/uL Hypersegmented Neuts 1+ Macrocytosis Present Peripher Smr Path Cons PT (9.0-12.0) Seconds INR (0.9-1.1) APTT (21.0-31.0) Seconds PTT Ratio Sodium 136 (136-145) mmol/L Potassium 4.5 (3.5-5.1) mmol/L Chloride 107 (98-107) mmol/L Carbon Dioxide 25 (21-32) mmol/L Anion Gap 4.0 (3-11) BUN 13 (7-18) mg/dl Creatinine 0.58 L (0.6-1.2) mg/dl Est Cr Clr Drug Dosing 105.3 ml/min Est GFR ( Amer) 102.3 ml/min Est GFR (Non-Af Amer) 88.3 ml/min BUN/Creatinine Ratio 22.7 H (10-20) Glucose 103 H (70-99) mg/dl POC Glucose (70-99) mg/dl Estimat Average Glucose 111 mg/dl Hemoglobin A1c 5.5 (4.5-5.6) % Calcium 8.5 (8.5-10.1) mg/dl Magnesium 1.8 (1.8-2.4) mg/dl Total Bilirubin (0.2-1) mg/dl AST (15-37) U/L ALT (12-78) U/L Alkaline Phosphatase (45-117) U/L Troponin I (0-0.045) ng/ml Total Protein (6.4-8.2) gm/dl Albumin (3.4-5.0) gm/dl Globulin (2.5-4.0) gm/dl Albumin/Globulin Ratio (0.9-2) Lipase (73-393) U/L Vitamin B12 (193-986) pg/ml Folate (>5.38) ng/ml Fluid Neutrophils % % Fluid Lymphocytes % % Fluid Eosinophils % % Fluid Basophils % % Fluid Meso/Macro/[place] % % Fluid Comment Peritoneal Color Peritoneal Appearance Peritoneal WBC (0-300) /ul Peritoneal RBC /uL Peritoneal Tot Protein g/dl Peritoneal Albumin g/dl Serum Copper COVID-19 Eval Order SARS-CoV-2 (PCR) (Negative) 09/03/20 09/03/20 09/03/20 Range/Units 23:45 20:15 13:18 WBC (4.8-10.8) K/uL RBC (4.2-5.4) M/uL Hgb (12.0-16.0) g/dL Hct (37-47) % MCV (80-100) fL MCH (25-34) pg MCHC (32-36) g/dL RDW Std Deviation (36.4-46.3) fL RDW Coeff of Mile (11.5-14.5) % Plt Count (130-400) K/uL MPV (7.4-10.4) fL Immature Gran % (Auto) % Neut % (Auto) % Lymph % (Auto) % [place] % (Auto) % Eos % (Auto) % Baso % (Auto) % Reticulocyte % (Auto) (0.5-2.0) % Neut # (Auto) (1.4-6.5) K/uL Lymph # (Auto) (1.2-3.4) K/uL [place] # (Auto) (0.11-0.59) K/uL Eos # (Auto) (0-0.5) K/uL Baso # (Auto) (0-0.2) K/uL Reticulocyte # (0.02-0.10) 10^6/uL Immature Gran # (Auto) (0.00-0.02) K/uL Hypersegmented Neuts Macrocytosis Peripher Smr Path Cons PT (9.0-12.0) Seconds INR (0.9-1.1) APTT (21.0-31.0) Seconds PTT Ratio Sodium (136-145) mmol/L Potassium (3.5-5.1) mmol/L Chloride (98-107) mmol/L Carbon Dioxide (21-32) mmol/L Anion Gap (3-11) BUN (7-18) mg/dl Creatinine (0.6-1.2) mg/dl Est Cr Clr Drug Dosing ml/min Est GFR ( Amer) ml/min Est GFR (Non-Af Amer) ml/min BUN/Creatinine Ratio (10-20) Glucose (70-99) mg/dl POC Glucose 111 H 134 H (70-99) mg/dl Estimat Average Glucose mg/dl Hemoglobin A1c (4.5-5.6) % Calcium (8.5-10.1) mg/dl Magnesium (1.8-2.4) mg/dl Total Bilirubin (0.2-1) mg/dl AST (15-37) U/L ALT (12-78) U/L Alkaline Phosphatase (45-117) U/L Troponin I (0-0.045) ng/ml Total Protein (6.4-8.2) gm/dl Albumin (3.4-5.0) gm/dl Globulin (2.5-4.0) gm/dl Albumin/Globulin Ratio (0.9-2) Lipase (73-393) U/L Vitamin B12 (193-986) pg/ml Folate (>5.38) ng/ml Fluid Neutrophils % % Fluid Lymphocytes % % Fluid Eosinophils % % Fluid Basophils % % Fluid Meso/Macro/[place] % % Fluid Comment Peritoneal Color Peritoneal Appearance Peritoneal WBC (0-300) /ul Peritoneal RBC /uL Peritoneal Tot Protein g/dl Peritoneal Albumin g/dl Serum Copper COVID-19 Eval Order SARS-CoV-2 (PCR) NEGATIVE (Negative) 09/03/20 09/03/20 09/03/20 Range/Units 13:18 12:18 11:43 WBC (4.8-10.8) K/uL RBC (4.2-5.4) M/uL Hgb (12.0-16.0) g/dL Hct (37-47) % MCV (80-100) fL MCH (25-34) pg MCHC (32-36) g/dL RDW Std Deviation (36.4-46.3) fL RDW Coeff of Mile (11.5-14.5) % Plt Count (130-400) K/uL MPV (7.4-10.4) fL Immature Gran % (Auto) % Neut % (Auto) % Lymph % (Auto) % [place] % (Auto) % Eos % (Auto) % Baso % (Auto) % Reticulocyte % (Auto) (0.5-2.0) % Neut # (Auto) (1.4-6.5) K/uL Lymph # (Auto) (1.2-3.4) K/uL [place] # (Auto) (0.11-0.59) K/uL Eos # (Auto) (0-0.5) K/uL Baso # (Auto) (0-0.2) K/uL Reticulocyte # (0.02-0.10) 10^6/uL Immature Gran # (Auto) (0.00-0.02) K/uL Hypersegmented Neuts Macrocytosis Peripher Smr Path Cons PT 11.1 (9.0-12.0) Seconds INR 1.1 (0.9-1.1) APTT 29.3 (21.0-31.0) Seconds PTT Ratio 1.1 Sodium 136 (136-145) mmol/L Potassium 4.0 (3.5-5.1) mmol/L Chloride 105 (98-107) mmol/L Carbon Dioxide 28 (21-32) mmol/L Anion Gap 3.0 (3-11) BUN 12 (7-18) mg/dl Creatinine 0.57 L (0.6-1.2) mg/dl Est Cr Clr Drug Dosing 101.2 ml/min Est GFR ( Amer) 102.9 ml/min Est GFR (Non-Af Amer) 88.8 ml/min BUN/Creatinine Ratio 21.3 H (10-20) Glucose 105 H (70-99) mg/dl POC Glucose (70-99) mg/dl Estimat Average Glucose mg/dl Hemoglobin A1c (4.5-5.6) % Calcium 9.7 (8.5-10.1) mg/dl Magnesium (1.8-2.4) mg/dl Total Bilirubin 1.0 (0.2-1) mg/dl AST 46 H (15-37) U/L ALT 34 (12-78) U/L Alkaline Phosphatase 168 H (45-117) U/L Troponin I < 0.015 (0-0.045) ng/ml Total Protein 8.7 H (6.4-8.2) gm/dl Albumin 2.8 L (3.4-5.0) gm/dl Globulin 5.9 H (2.5-4.0) gm/dl Albumin/Globulin Ratio 0.5 L (0.9-2) Lipase 105 (73-393) U/L Vitamin B12 (193-986) pg/ml Folate (>5.38) ng/ml Fluid Neutrophils % % Fluid Lymphocytes % % Fluid Eosinophils % % Fluid Basophils % % Fluid Meso/Macro/Coll[place] % % Fluid Comment Peritoneal Color Peritoneal Appearance Peritoneal WBC (0-300) /ul Peritoneal RBC /uL Peritoneal Tot Protein g/dl Peritoneal Albumin g/dl Serum Copper COVID-19 Eval Order Covid19 at [facility] SARS-CoV-2 (PCR) (Negative) 09/03/20 Range/Units 11:43 WBC (4.8-10.8) K/uL RBC (4.2-5.4) M/uL Hgb (12.0-16.0) g/dL Hct (37-47) % MCV (80-100) fL MCH (25-34) pg MCHC (32-36) g/dL RDW Std Deviation (36.4-46.3) fL RDW Coeff of Mile (11.5-14.5) % Plt Count (130-400) K/uL MPV (7.4-10.4) fL Immature Gran % (Auto) % Neut % (Auto) % Lymph % (Auto) % [place] % (Auto) % Eos % (Auto) % Baso % (Auto) % Reticulocyte % (Auto) (0.5-2.0) % Neut # (Auto) (1.4-6.5) K/uL Lymph # (Auto) (1.2-3.4) K/uL [place] # (Auto) (0.11-0.59) K/uL Eos # (Auto) (0-0.5) K/uL Baso # (Auto) (0-0.2) K/uL Reticulocyte # (0.02-0.10) 10^6/uL Immature Gran # (Auto) (0.00-0.02) K/uL Hypersegmented Neuts Macrocytosis Present Peripher Smr Path Cons PT (9.0-12.0) Seconds INR (0.9-1.1) APTT (21.0-31.0) Seconds PTT Ratio Sodium (136-145) mmol/L Potassium (3.5-5.1) mmol/L Chloride (98-107) mmol/L Carbon Dioxide (21-32) mmol/L Anion Gap (3-11) BUN (7-18) mg/dl Creatinine (0.6-1.2) mg/dl Est Cr Clr Drug Dosing ml/min Est GFR ( Amer) ml/min Est GFR (Non-Af Amer) ml/min BUN/Creatinine Ratio (10-20) Glucose (70-99) mg/dl POC Glucose (70-99) mg/dl Estimat Average Glucose mg/dl Hemoglobin A1c (4.5-5.6) % Calcium (8.5-10.1) mg/dl Magnesium (1.8-2.4) mg/dl Total Bilirubin (0.2-1) mg/dl AST (15-37) U/L ALT (12-78) U/L Alkaline Phosphatase (45-117) U/L Troponin I (0-0.045) ng/ml Total Protein (6.4-8.2) gm/dl Albumin (3.4-5.0) gm/dl Globulin (2.5-4.0) gm/dl Albumin/Globulin Ratio (0.9-2) Lipase (73-393) U/L Vitamin B12 (193-986) pg/ml Folate (>5.38) ng/ml Fluid Neutrophils % % Fluid Lymphocytes % % Fluid Eosinophils % % Fluid Basophils % % Fluid Meso/Macro/Collingsworth % % Fluid Comment Peritoneal Color Peritoneal Appearance Peritoneal WBC (0-300) /ul Peritoneal RBC /uL Peritoneal Tot Protein g/dl Peritoneal Albumin g/dl Serum Copper COVID-19 Eval Order SARS-CoV-2 (PCR) (Negative) Diagnostic Findings Hep Doppler: Patent hepatic and portal veins with normal direction of the flow and spectral waveforms. Hepatopedal flow within the portal vein. Heterogeneous echogenicity of visualized liver parenchyma, microlobulated border and mild ascites are seen consistent with cirrhosis. IMPRESSION: 1. Patent portal and hepatic veins with normal direction of the flow. 2. Liver cirrhosis. Ascites. US ABD: FINDINGS: The risks, benefits, and alternatives to the procedure were discussed with the patient. Written informed consent was obtained. Following real-time ultrasound localization, the skin was prepped and draped. Following local anesthesia with Xylocaine, the sheath paracentesis needle was inserted and approximately 6.5 liters of yellowish fluid was removed by vacuum suction. The patient tolerated the procedure well and left the department in satisfactory condition. IMPRESSION: Successful ultrasound-guided paracentesis with removal of approximately 6.5 liters of ascitic fluid. (1) Ascites Ascites type: other type Qualified Code(s): R18.8 - Other ascites
--- NOTE | 2020-09-04 15:02 | Discharge Summary ---
Date of Service September 04, 2020 Admission HPI Per Admitting Provider This is a 80-year-old female with past medical history of Jones cirrhosis with ascites varices that presents today complaining of worsening abdominal girth. Patient is pleasant a good historian. Patient's liver disease was well compensated until recently, she had presented to the GI office earlier today. Patient was sent for abdominal ultrasound which showed moderate ascites which is worse than her usual, GI recommended presentation to the emergency room for further evaluation secondary to her decompensation. Patient's main complaint today shortness of breath, with some dyspnea on exertion. She attributes to the increased volume and girth of her abdomen. She denies any fevers or chills. She denies any chest pain, cough, or constipation. She does have some diarrhea which she attributes to her ongoing treatment with lactulose. She denies any abdominal pain. She is already seen by GI with plans for a paracentesis later today with fluid studies and cultures. At this time, patient appears to be comfortable, O2 sat is 94% on room air and other vitals are stable. Admission Exam Per Admitting Provider Constitutional: cooperative; no acute distress Neck: trachea midline, no thyromegaly Respiratory: normal respiratory effort Auscultation: lungs clear to auscultation bilaterally; no crackles, no rales, no rhonchi and no wheezes Cardiovascular: Rate/Rhythm: regular rate and regular rhythm Heart Sounds: normal S1, normal S2 and + murmur Gastrointestinal (Abdomen): Inspection/Auscultation: + abdomen distended Percussion/Palpation: abdomen soft, + dullness to percussion and + fluid wave; abdomen nontender, no guarding, abdomen not rigid and no hepatosplenomegaly Skin: no rashes, warm and dry Principal Diagnosis Liver cirrhosis with ascites Discharge Exam Constitutional well developed and + morbidly obese; no acute distress Eyes + anicteric sclerae; normal pupil size Neck trachea midline, no thyromegaly Respiratory normal respiratory effort, lungs clear to auscultation Cardiovascular Rate/Rhythm: regular rate and regular rhythm Heart Sounds: normal S1 and normal S2; no murmur Extremities: normal capillary refill and + pedal edema; no calf tenderness Gastrointestinal (Abdomen) Inspection/Auscultation: + abdomen distended Percussion/Palpation: abdomen soft; abdomen nontender, no guarding, abdomen not rigid and no hepatosplenomegaly Skin no rashes, warm and dry Psychiatric A+Ox3, euthymic affect Discharge Data Allergies Allergy/AdvReac Type Severity Reaction Status Date / Time aspirin AdvReac Intermediate advised Verified 09/03/20 15:14 not to take d/t cirrhosis and gi bleed cortisone AdvReac Intermediate "WEIRD Verified 09/03/20 15:14 FEELING NSAIDS (Non-Steroidal AdvReac Intermediate advised Verified 09/03/20 15:14 Anti-Inflamma not to take d/t cirrhosis and gi bleed Consultations 09/03/20 13:12 ED Decision to Admit Stat 09/04/20 08:12 Consult Hematology Routine Ordered Studies 09/03/20 13:12 US duplex portal hepatic veins Stat IMPRESSION: 1. Patent portal and hepatic veins with normal direction of the flow. 2. Liver cirrhosis. Ascites. 09/04/20 US paracentesis abd w/image Routine IMPRESSION: Successful ultrasound-guided paracentesis with removal of approximately 6.5 liters of ascitic fluid. Hospital Course (1) Ascites: Bernarda Lara is a 80 year old female observed overnight at [facility] from September 03-2020 due to recurrent ascites from liver cirrhosis. She underwent ultrasound guided paracentesis with removal of 6.5 L of ascitic fluid. Culture is pending on peritoneal fluid however Gram stain and initial labs show this is consistent with liver cirrhosis. She is now medically stable for discharge. No change to her normal medications (recommend working on compliance with those already prescribed). 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 (2) Diabetes type 2, controlled: (3) Lung nodule: Discussed with patient and she continues to decline further workup for this. (4) Elevated MCV: Reticulocytes elevated B12/folate normal Please follow up serum copper result. Pending on discharge. Total Time Total Time Spent Total Time Spent (In Minutes): 25 Total Time Includes: Examination of the Patient, Discharge Planning, Medication Reconciliation and Communication With Other Providers Discharge Plan Discharge Items Patient Disposition: Home - Self-Care Reason For Visit: ASCITES Discharge Diagnosis: Liver cirrhosis with ascites Activity: Resume your previous activity Non-emergency contact: Primary Care Provider and Lunchroom Mother Call non-emergency contact if: you have any medication questions and your symptoms worsen Follow-up/Referrals: Courtney Jules DO [Primary Care Provider] - 10/14/20 9:20 am (Soonest available for Dr. Jules was made.) Tiffany Steele CRNP [Nurse Practitioner] - 09/15/20 1:00 pm ([facility] location) Diet: Low Sodium (2gm) Addtl Attending Provider Instructions: You are observed overnight at [facility] due to recurrent ascites from liver cirrhosis. You underwent ultrasound guided paracentesis with removal of 6.5 L of ascitic fluid. Culture is pending on peritoneal fluid however Gram stain initial studies show this is consistent with your liver cirrhosis. You are now medically stable for discharge. No change to your normal medications. 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 Kind regards, Dr. Riccardo Lane Pending Studies at Discharge: No Stand-Alone Forms: My [facility], Smoking Cessation Medications and DC Order Prescriptions: Continued nystatin 100,000 unit/gram powder 1 appln TOP BID Qty: 30 RF: 3 ferrous sulfate [Iron (ferrous sulfate)] 325 mg (65 mg iron) tablet 325 mg PO BID Qty: 180 RF: 1 furosemide [Lasix] 20 mg tablet 20 mg PO QAM Qty: 90 RF: 1 spironolactone [Aldactone] 25 mg tablet 25 mg PO BID Qty: 180 RF: 1 levothyroxine [Synthroid] 125 mcg tablet 125 mcg PO QAM Qty: 90 RF: 1 (DME) blood-glucose meter [OneTouch UltraMini] Kit See Rx Instructions .ROUTE .MEDSUPPLY Qty: 1 RF: 0 (DME) blood-glucose meter [OneTouch Ultra2 Meter] Misc See Rx Instructions .ROUTE .MEDSUPPLY Qty: 1 RF: 0 diclofenac sodium [Voltaren] 1 % gel 2 g topical QID PRN (Reason: Pain) Qty: 100 RF: 2 ondansetron 4 mg tablet,disintegrating 4 - 8 mg PO Q8H PRN (Reason: Nausea) Qty: 270 RF: 0 meclizine [Dramamine Less Drowsy] 25 mg tablet 25 mg PO TID PRN (Reason: Dizziness) Qty: 30 RF: 5 carvedilol [Coreg] 25 mg tablet 25 mg PO BID Qty: 180 RF: 1 pantoprazole [Protonix] 40 mg tablet,delayed release (DR/EC) 40 mg PO QAM Qty: 90 RF: 1 pramipexole 0.25 mg tablet 0.25 mg PO QPM PRN (Reason: restless leg(s)) Qty: 90 RF: 1 cholecalciferol (vitamin D3) 5,000 unit tablet 5,000 unit PO QAM Qty: 30 RF: 0 cyanocobalamin (vitamin B-12) [Vitamin B-12] 1,000 mcg Tablet 1,000 mcg PO QAM RF: 0 duloxetine 60 mg capsule,delayed release(DR/EC) 60 mg PO QAM RF: 0 cyclobenzaprine 5 mg tablet 5 mg PO TID PRN (Reason: muscle spasm) Qty: 30 RF: 0 gabapentin 300 mg capsule 300 mg PO TID RF: 0 Discharge Orders: Discharge Order (Routine); Ordered 09/04/20 Ordered By: Riccardo Lane Admission Data Admit Date/Time: 09/03/20 14:34 Attending Provider: Riccardo Lane Admit Provider: Janes Buenrostro Primary Care Provider: Courtney Jules Other Providers: Janes Buenrostro ; Gunnar Jimenez V. Other Interventions: Discharge Summary Assessment (RN) Last Done: 09/04/20 15:17 Coding Level of Care Code 90118 OBS Care - Discharge Diagnoses Ascites R18.8 Ascites type: other type Diabetes type 2, controlled E11.9 Lung nodule R91.1 Elevated MCV R71.8
== END 2020-09-04 15:59 | disposition home or self-care (01) ==
LOC: ED 11:13 → 2W 14:34 → SUATTDRO 14:34 → INTOOBSV 14:34 → 2W 15:51

== ENCOUNTER 2020-11-15 17:46 | Inpatient (IN) ==
[2020-11-15] MEDS ORDERED: SODIUM CHLORIDE 0.9% 500 ML IV STA (18:11)
[2020-11-15 18:21] LABS: Appearance Urine Cloudy (Clear); Bacteria Urine Automated Negative (Negative); Blood Urine Negative (Negative); Color Urine Dark Yellow; Epithelial Cell Urine Auto >30 /lpf (0-5); Glucose Urine UA Negative (Negative); Ketones Urine Trace (Negative); Leukocyte Esterase Urine Negative (Negative); Nitrite Urine Negative (Negative); Protein Urine Trace (Negative); RBC Urine Automated 0-4 /hpf (0-4); Specific Gravity Urine 1.037 (1.000-1.030); Urobilinogen Urine Negative (Negative)
[2020-11-15 18:22] LABS: Bilirubin Urine 1+ (Negative)
--- NOTE | 2020-11-15 18:26 | Emergency Department Note ---
Impression & Plan Acute pancreatitis, Chronic back pain ED Provider Note NAME: RACHEL ALVARADO AGE: 80 SEX: F : 1940 ARRIVES VIA: Walk-In INFORMANT: Patient, ED PROVIDER(S): Russell Kaplan DO CHIEF COMPLAINT: Not eating HPI: The patient is a 80-year-old female who presented to the emergency department with her son for an evaluation of generalized illness. The patient does have a history of longstanding back pain as well as nonalcoholic cirrhosis. She has had multiple compression fractures in her back which has led to chronic pain over the years. The patient has a history of opioid abuse according to her pain management visits. It was felt to be in the best interest for this patient that she not receive any narcotic-based pain medication so at the beginning of the year she has had no opioid-based pain medication. Since that time the son states that she has had general decline. She does not participate in daily activities as much as she used to. He states that she stays in bed long periods of time. She complains of abdominal pain arm pain back pain shoulder pain and leg pain. She also has been complaining of loose bowel movements recently. She denies having any vomiting. She denies having any black or bloody bowel movements. She states that she has been compliant with her outpatient medications. She was started on a muscle relaxer by her primary care physician and her son states that she took the entire prescription which was supposed to last 20 days over the course of 6 to 7 days. Otherwise she is not been abusing other medications. She has had no recent trauma or falls. The son is concerned about his mother's wellbeing and would like the possibility of rehab. The patient was referred to physical therapy and only went to 1 visit. ROS: See above HPI for pertinent positives & negatives. A total of 10 systems reviewed and were otherwise negative. PAST MEDICAL HISTORY: See Below PAST SURGICAL HISTORY: See Below FAMILY HISTORY: See Below SOCIAL HISTORY: See Below HOME MEDICATIONS: See Below ALLERGIES: See Below VITALS: See Below PHYSICAL EXAMINATION: GENERAL: Patient is awake and alert. Her affect is very flat. EYES: The conjunctivae are clear. The pupils are round and reactive. EARS, NOSE, MOUTH AND THROAT: The nose is without any evidence of any deformity. NECK: The neck is nontender and supple. RESPIRATORY: Normal respiratory effort is noted there is no evidence of wheezing rhonchi or rales CARDIOVASCULAR: Regular rate and rhythm noted there no murmurs rubs or gallops normal S1 normal S2. GASTROINTESTINAL: The abdomen is soft and mildly distended. There is no guarding rigidity noted. BACK: Pain was noted over the entire course of the spine to palpation. There is no specific step-off. MUSCULOSKELETAL/EXTREMITIES: There is no evidence of gross deformity full range of motion is noted in the hips and shoulders. SKIN: Skin was warm and dry. Trace pedal edema was noted bilaterally. NEUROLOGIC: Patient is awake alert and oriented x3. Strength was symmetric but diminished. MEDICAL DECISION MAKING: The patient is a 80-year-old female who presented to the emergency department for an evaluation of back pain. The patient presented with her son who is very concerned about the patient's overall wellbeing. 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 The patient was prescribed this medication for a myriad of problems including nonalcoholic cirrhosis as well as multiple compression fractures in her back. Since the beginning of the year the patient is started to wean off of any opiate medications. This is left her very depressed and not really active. Her son was concerned and thought she might need inpatient rehab. She was complaining of worsening back pain compared to baseline. I discussed the patient's laboratory and radiographic studies with her. She was treated with IV proton pump inhibitor and IV H2 linnette. She appears to have an elevated lipase. I discussed her condition with the on-call [facility] hospitalist group. They will evaluate the patient in the emergency department for further management and disposition. Triage Nursing notes reviewed. Prior medical records reviewed Vital Signs: reviewed and remarkable for elevated blood pressure. Differential diagnosis: Infection, dehydration, metabolic abnormality, hypo/hyperglycemia, electrolyte disturbance, anemia, hypoxia, cardiac sources, intracerebral event, toxicologic, neurologic, as well as other pathologies. ER treatment provided: See below Diagnostics interpreted by me: ECG: EKG was obtained in the emergency department. My interpretation is normal sinus rhythm at 72 bpm. There is no ectopy. There is no acute ST segment abnormalities noted. This was compared to a tracing from September 032020. No significant changes were noted. Cardiac Monitoring: An order was placed for continuous cardiac monitoring. The monitor shows a rate of 75 bpm with sinus rhythm. Laboratory studies: As stated above and show below. Imaging studies: See below Consultation(s): I discussed this case with Dr. Kim who is on-call for the [facility] hospitalist group. They will evaluate the patient in the emergency department. 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 Obesity Opioid-induced hyperalgesia Pulmonary nodule Restless legs syndrome Surgical History History of cholecystectomy History of colonoscopy History of esophagogastroduodenoscopy (EGD) History of hip surgery LEFT History of left cataract extraction History of open reduction and internal fixation (ORIF) procedure right lower extremity History of right cataract surgery History of tonsillectomy History of tooth extraction History of total abdominal hysterectomy and bilateral salpingo-oophorectomy Secondary to fibroid History of tubal ligation Family History Mother Diabetes Stroke Daughter Diabetes Father Pneumonia Other No family history of adverse response to anesthesia Denies family history of Ovarian cancer Prostate cancer Myocardial infarction Breast cancer Colorectal cancer Social History Smoking Status: Current every day smoker Tobacco Type: Cigarettes packs per day: 0.5; Second Hand Exposure: No; Hx Alcohol Use: No Hx Substance Use: No Preferred Language: Romansh Communication Ability: Effective Visual Impairment: No Limitations Hearing Ability: Normal Engraver Block Required: No Beliefs That Will Affect Care: None marital status: / Current Living Situation: Alone current occupational status: retired How many Children do You have: 2 Feels Safe at Home: Yes Childhood Exposure to Second-Hand Smoke: Yes caffeine: Yes during the past year weight has: increased > 10 lbs Dental Care, Regularly: No Physical Activity Frequency: Does not Exercise Seatbelt Use: always Assistive Devices: Walker Allergies Allergies Allergy/AdvReac Type Severity Reaction Status Date / Time aspirin AdvReac Intermediate advised Verified 11/15/20 18:06 not to take d/t cirrhosis and gi bleed cortisone AdvReac Intermediate "WEIRD Verified 11/15/20 18:06 FEELING NSAIDS (Non-Steroidal AdvReac Intermediate advised Verified 11/15/20 18:06 Anti-Inflamma not to take d/t cirrhosis and gi bleed Home Meds Home Medications Medication Instructions Recorded Confirmed cholecalciferol (vitamin D3) 125 5,000 unit PO QAM #30 tab 08/17/18 11/15/20 mcg (5,000 unit) tablet cyanocobalamin (vitamin B-12) 1,000 mcg PO QAM 09/17/18 11/15/20 1,000 mcg tablet (Vitamin B-12) cyclobenzaprine 5 mg tablet 5 mg PO UD PRN 11/15/20 11/15/20 duloxetine 30 mg capsule,delayed 60 mg PO DAILY 11/15/20 11/15/20 release lactulose 10 gram/15 mL (15 mL) 30 g PO QAM 11/15/20 11/15/20 oral solution nystatin 100,000 unit/gram topical 1 appln TOP BID PRN 11/15/20 11/15/20 powder spironolactone 25 mg tablet 50 mg PO QAM 11/15/20 11/15/20 (Aldactone) Previous Rx's Medication Instructions Recorded ferrous sulfate 325 mg (65 mg 325 mg PO BID #180 tab 01/09/20 iron) tablet (Iron (ferrous sulfate)) levothyroxine 125 mcg tablet 125 mcg PO QAM #90 tab 02/25/20 (Synthroid) blood-glucose meter (OneTouch #1 ea 04/01/20 Ultra2 Meter) blood-glucose meter (OneTouch #1 ea 04/01/20 UltraMini) ondansetron 4 mg disintegrating 4 - 8 mg PO Q8H PRN #270 tab 07/02/20 tablet carvedilol 25 mg tablet (Coreg) 25 mg PO BID #180 tab 07/13/20 pantoprazole 40 mg tablet,delayed 40 mg PO QAM #90 tab 07/13/20 release (Protonix) triamcinolone acetonide 0.5 % 1 applic TOPICAL BID PRN #60 g 09/10/20 topical cream furosemide 20 mg tablet (Lasix) 20 mg PO QAM #90 tab 09/11/20 meclizine 25 mg tablet (Dramamine 25 mg PO TID PRN #30 tab 09/11/20 Less Drowsy) pramipexole 0.25 mg tablet 0.25 mg PO QPM PRN #90 tab 10/19/20 gabapentin 300 mg capsule See Rx Instructions .ROUTE 10/27/20 .COMPLEX #120 cap diclofenac sodium 1 % topical gel 2 g TOPICAL QID PRN #100 g 10/30/20 albuterol sulfate 90 mcg/actuation 1 inh INHALATION QID PRN #8.5 g 11/05/20 aerosol inhaler Results & Data (ED) Vital Signs Vital Signs - 24 hr 11/15/20 17:56 11/15/20 19:30 Temperature 36.4 C L Temperature Source Temporal Artery Scan Pulse Rate 76 Pulse Rate [Apical] 71 Pulse Rhythm [Apical] Regular Pulse Strength [Apical] Normal Respiratory Rate 18 20 Respiratory Effort / Characteristics Non-Labored Spontaneous Respiratory Depth Normal Blood Pressure 129/81 Blood Pressure [Right Arm] 127/85 Blood Pressure Mean 97 Blood Pressure Mean [Right Arm] 99 Blood Pressure Position [Right Arm] Sitting Pulse Oximetry 94 95 Oxygen Delivery Method Room Air Room Air Sepsis Recent Fever Within 48 Hours No Sepsis New/Unexplained Change in Mental Status N/A Sepsis Action Taken by Nursing No Action Required Home Medications Current Medication List: was personally reviewed by me Laboratory Data Attestation: I reviewed the patient's lab results. Result diagrams: 11/15/20 18:20 11/15/20 18:20 Lab Results 11/15/20 11/15/20 11/15/20 Range/Units 18:11 18:20 18:20 WBC 12.63 H (4.8-10.8) K/uL RBC 3.90 L (4.2-5.4) M/uL Hgb 15.5 (12.0-16.0) g/dL Hct 45.6 (37-47) % MCV 116.9 H (80-100) fL MCH 39.7 H (25-34) pg MCHC 34.0 (32-36) g/dL RDW Std Deviation 56.9 H (36.4-46.3) fL RDW Coeff of Mile 13.4 (11.5-14.5) % Plt Count 199 (130-400) K/uL MPV 9.0 (7.4-10.4) fL Immature Gran % (Auto) 0.4 % Neut % (Auto) 83.3 % Lymph % (Auto) 8.2 % Graves % (Auto) 7.9 % Eos % (Auto) 0.2 % Baso % (Auto) 0.0 % Neut # (Auto) 10.51 H (1.4-6.5) K/uL Lymph # (Auto) 1.04 L (1.2-3.4) K/uL Graves # (Auto) 1.00 H (0.11-0.59) K/uL Eos # (Auto) 0.03 (0-0.5) K/uL Baso # (Auto) 0.00 (0-0.2) K/uL Immature Gran # (Auto) 0.05 H (0.00-0.02) K/uL Polychromasia 1+ Poikilocytosis Present PT 12.2 H (9.0-12.0) Seconds INR 1.2 H (0.9-1.1) APTT 29.0 (21.0-31.0) Seconds PTT Ratio 1.1 Sodium (136-145) mmol/L Potassium (3.5-5.1) mmol/L Chloride (98-107) mmol/L Carbon Dioxide (21-32) mmol/L Anion Gap (3-11) BUN (7-18) mg/dl Creatinine (0.6-1.2) mg/dl Est Cr Clr Drug Dosing Est GFR ( Amer) ml/min Est GFR (Non-Af Amer) ml/min BUN/Creatinine Ratio (10-20) Glucose (70-99) mg/dl Calcium (8.5-10.1) mg/dl Total Bilirubin (0.2-1) mg/dl Direct Bilirubin (0-0.2) mg/dl AST (15-37) U/L ALT (12-78) U/L Alkaline Phosphatase (45-117) U/L Troponin I (0-0.045) ng/ml Total Protein (6.4-8.2) gm/dl Albumin (3.4-5.0) gm/dl Lipase (73-393) U/L Urine Color Dark Yellow Urine Appearance Cloudy A (Clear) Urine pH 6.0 (4.5-7.5) Ur Specific Combes 1.037 H (1.000-1.030) Urine Protein Trace H (Negative) Urine Glucose (UA) Negative (Negative) Urine Ketones Trace H (Negative) Urine Blood Negative (Negative) Urine Nitrite Negative (Negative) Urine Bilirubin 1+ H (Negative) Urine Urobilinogen Negative (Negative) Ur Leukocyte Esterase Negative (Negative) Urine WBC (Auto) 1-5 (0-5) /hpf Urine RBC (Auto) 0-4 (0-4) /hpf U Hyaline Cast (Auto) 5-10 H (0-5) /lpf U Epithel Cells (Auto) >30 H (0-5) /lpf Urine Bacteria (Auto) Negative (Negative) Urine Yeast Not Reportable COVID-19 Eval Order SARS-CoV-2 (PCR) (Negative) 11/15/20 11/15/20 11/15/20 Range/Units 18:20 19:20 19:20 WBC (4.8-10.8) K/uL RBC (4.2-5.4) M/uL Hgb (12.0-16.0) g/dL Hct (37-47) % MCV (80-100) fL MCH (25-34) pg MCHC (32-36) g/dL RDW Std Deviation (36.4-46.3) fL RDW Coeff of Mile (11.5-14.5) % Plt Count (130-400) K/uL MPV (7.4-10.4) fL Immature Gran % (Auto) % Neut % (Auto) % Lymph % (Auto) % Graves % (Auto) % Eos % (Auto) % Baso % (Auto) % Neut # (Auto) (1.4-6.5) K/uL Lymph # (Auto) (1.2-3.4) K/uL Graves # (Auto) (0.11-0.59) K/uL Eos # (Auto) (0-0.5) K/uL Baso # (Auto) (0-0.2) K/uL Immature Gran # (Auto) (0.00-0.02) K/uL Polychromasia Poikilocytosis PT (9.0-12.0) Seconds INR (0.9-1.1) APTT (21.0-31.0) Seconds PTT Ratio Sodium 131 L (136-145) mmol/L Potassium 4.6 (3.5-5.1) mmol/L Chloride 97 L (98-107) mmol/L Carbon Dioxide 26 (21-32) mmol/L Anion Gap 8.0 (3-11) BUN 37 H (7-18) mg/dl Creatinine 0.99 (0.6-1.2) mg/dl Est Cr Clr Drug Dosing Not Reportable Est GFR ( Amer) 63.3 ml/min Est GFR (Non-Af Amer) 54.6 ml/min BUN/Creatinine Ratio 36.8 H (10-20) Glucose 130 H (70-99) mg/dl Calcium 9.4 (8.5-10.1) mg/dl Total Bilirubin 1.1 H (0.2-1) mg/dl Direct Bilirubin 0.4 H (0-0.2) mg/dl AST 97 H (15-37) U/L ALT 79 H (12-78) U/L Alkaline Phosphatase 186 H (45-117) U/L Troponin I < 0.015 (0-0.045) ng/ml Total Protein 8.8 H (6.4-8.2) gm/dl Albumin 3.3 L (3.4-5.0) gm/dl Lipase 1113 H (73-393) U/L Urine Color Urine Appearance (Clear) Urine pH (4.5-7.5) Ur Specific Combes (1.000-1.030) Urine Protein (Negative) Urine Glucose (UA) (Negative) Urine Ketones (Negative) Urine Blood (Negative) Urine Nitrite (Negative) Urine Bilirubin (Negative) Urine Urobilinogen (Negative) Ur Leukocyte Esterase (Negative) Urine WBC (Auto) (0-5) /hpf Urine RBC (Auto) (0-4) /hpf U Hyaline Cast (Auto) (0-5) /lpf U Epithel Cells (Auto) (0-5) /lpf Urine Bacteria (Auto) (Negative) Urine Yeast COVID-19 Eval Order Covid19 at [facility] SARS-CoV-2 (PCR) NEGATIVE (Negative) Administered Medications Carvedilol (Carvedilol 25 Mg Tab) 25 mg PO BID MONIQUE Stop: 12/15/20 22:29 Last Admin: 11/15/20 23:28 Dose: 25 mg Documented by: [id number] Ferrous Sulfate (Ferrous Sulfate 325 Mg Tab) 325 mg PO BID MONIQUE Stop: 12/15/20 22:29 Last Admin: 11/15/20 23:28 Dose: 325 mg Documented by: [id number] Gabapentin (Gabapentin 600 Mg Tab) 600 mg PO HS MONIQUE Stop: 12/15/20 22:44 Last Admin: 11/15/20 23:28 Dose: 600 mg Documented by: [id number] Discontinued Medications Albuterol (Albut/Ipratrop 3mg/0.5mg Neb 3 Ml Vial) 3 ml NEB NOW STA Stop: 11/15/20 20:14 Last Admin: 11/15/20 20:21 Dose: 3 ml Documented by: [id number] Famotidine (Famotidine 20mg/5ml Iv Push) 20 mg IV ONE STA Stop: 11/15/20 19:01 Last Admin: 11/15/20 19:18 Dose: 20 mg Documented by: [id number] Sodium Chloride (Nss) 500 mls @ 999 mls/hr IV .Q31M STA Stop: 11/15/20 18:41 Last Infusion: 11/15/20 19:25 Dose: 0 mls/hr Documented by: [id number] Admin: 11/15/20 18:40 Dose: 999 mls/hr Documented by: [id number] Pantoprazole Sodium 40 mg/ (Syringe) 10 mls @ 5 mls/min IV NOW ONE Stop: 11/15/20 19:01 Last Admin: 11/15/20 20:01 Dose: 5 mls/min Documented by: [id number] Sodium Chloride (Nss 1000ml) 1,000 mls @ 999 mls/hr IV .Q1H1M ONE Stop: 11/15/20 23:18 Last Admin: 11/15/20 23:27 Dose: 999 mls/hr Documented by: [id number] Piperacillin Sod/Tazobactam (Sod 4.5 gm/ Dextrose) 120 mls @ 200 mls/hr IV ONE ONE; Protocol Stop: 11/15/20 23:35 Last Infusion: 11/16/20 00:06 Dose: 0 mls/hr Documented by: [id number] Admin: 11/15/20 23:30 Dose: 200 mls/hr Documented by: [id number] Lorazepam (Lorazepam 1 Mg Tab) 1 mg PO NOW STA Stop: 11/15/20 22:14 Last Admin: 11/16/20 00:15 Dose: Not Given Documented by: [id number] Tramadol HCl (Tramadol Hcl 50 Mg Tablet) 50 mg PO NOW STA Stop: 11/15/20 20:14 Last Admin: 11/15/20 20:18 Dose: 50 mg Documented by: [id number] Imaging Data Radiologist's Impression: Chest X-Ray 11/15/20 18:12 SINGLE VIEW CHEST CLINICAL HISTORY: Dyspnea. FINDINGS: An AP, portable, upright chest radiograph is compared to study dated 09/03/2020 and correlated with chest CT dated 06/30/2015. The heart is enlarged noting atherosclerotic calcification of the thoracic aorta. There is pulmonary vascular congestion. There are low lung volumes with bibasilar atelectasis. Chronic interstitial thickening is similar to previous. An irregular 2.3 cm nodule is again seen at the right apex. No airspace consolidation is seen typical for pneumonia and there is no large pleural effusion. No pneumothorax is seen. The skeletal structures are osteopenic. The bony thorax is grossly intact. Advanced atherosclerotic calcification is noted in the carotid bulbs. IMPRESSION: 1. Cardiomegaly with mild pulmonary vascular congestion. 2. An irregular nodule at the right apex is unchanged from prior studies. This remains highly concerning for lung cancer. ACT 112: Negative or not required by law. Electronically signed by: Emeterio Garg M.D. 11/15/2020 6:51 PM Discharge Plan Visit Data Chief Complaint: Back Injury/Pain Stated Complaint: BACK PAIN, WEAKNESS ED Provider: Russell Kaplan Discharge Problem: Acute pancreatitis, Chronic back pain Patient Disposition: Admitted As Inpatient Condition: Good Discharge Instructions Interventions: ED Discharge Assessment Last Done: 11/15/20 22:05 Discharge Problem: Acute pancreatitis Qualifiers: Pancreatitis type: unspecified pancreatitis type Acute pancreatitis complication: unspecified Qualified Code(s): K85.90 - Acute pancreatitis without necrosis or infection, unspecified Chronic back pain Qualifiers: Back pain location: low back pain Back pain laterality: midline Sciatica presence: unspecified whether sciatica present Qualified Code(s): M54.5 - Low back pain
[2020-11-15 18:33] LABS: Eosinophils # (auto) 0.03 K/uL (0-0.5); Eosinophils % (auto) 0.2 %; Hematocrit (blood only) 45.6 % (37-47); Hemoglobin 15.5 g/dL (12.0-16.0); Immature Granulocytes # (auto) 0.05 K/uL (0.00-0.02); Immature Granulocytes % (auto) 0.4 %; Lymphocytes # (auto) 1.04 K/uL (1.2-3.4); Lymphocytes % (auto) 8.2 %; Mean Corpuscular Hemoglobin 39.7 pg (25-34); Mean Corpuscular Volume 116.9 fL (80-100); Monocytes % (auto) 7.9 %; Neutrophils # (auto) 10.51 K/uL (1.4-6.5); Neutrophils % (auto) 83.3 %; Platelet Count 199 K/uL (130-400); RDW Coefficient of Variation 13.4 % (11.5-14.5); RDW Standard Deviation 56.9 fL (36.4-46.3); White Blood Count 12.63 K/uL (4.8-10.8)
[2020-11-15 18:43] LABS: INR 1.2 (0.9-1.1); Partial Thromboplastin Ratio 1.1; Prothrombin Time 12.2 Seconds (9.0-12.0)
[2020-11-15 18:49] LABS: Alanine Aminotransferase 79 U/L (12-78); Albumin Level 3.3 gm/dl (3.4-5.0); Aspartate Aminotransferase 97 U/L (15-37); BUN Creatinine Ratio 36.8 (10-20); Bilirubin Direct 0.4 mg/dl (0-0.2); Blood Urea Nitrogen 37 mg/dl (7-18); Calcium 9.4 mg/dl (8.5-10.1); Carbon Dioxide 26 mmol/L (21-32); Chloride 97 mmol/L (98-107); Est GFR (African American) 63.3 ml/min; Est GFR (Non-African American) 54.6 ml/min; Glucose 130 mg/dl (70-99); Lipase 1113 U/L (73-393); Potassium 4.6 mmol/L (3.5-5.1); Sodium 131 mmol/L (136-145)
--- NOTE | 2020-11-15 18:52 | XRay Report ---
SINGLE VIEW CHEST CLINICAL HISTORY: Dyspnea. FINDINGS: An AP, portable, upright chest radiograph is compared to study dated 09/03/2020 and correlat ed with chest CT dated 06/30/2015. The heart is enlarged noting atherosclerotic calcification of the t horacic aorta. There is pulmonary vascular congestion. There are low lung volumes with bibasilar atel ectasis. Chronic interstitial thickening is similar to previous. An irregular 2.3 cm nodule is again seen at the right apex. No airspace consolidation is seen typical for pneumonia and there is no large pleural effusion. No pneumothorax is seen. The skeletal structures are osteopenic. The bony thorax i s grossly intact. Advanced atherosclerotic calcification is noted in the carotid bulbs. IMPRESSION: 1. Cardiomegaly with mild pulmonary vascular congestion. 2. An irregular nodule at the right apex is unchanged from prior studies. This remains highly concern ing for lung cancer. ACT 112: Negative or not required by law. Electronically signed by: Emeterio Garg M.D. 11/15/2020 6:51 PM
[2020-11-15 18:53] LABS: Alkaline Phosphatase 186 U/L (45-117); Bilirubin,Total 1.1 mg/dl (0.2-1); Total Protein 8.8 gm/dl (6.4-8.2); Troponin I < 0.015 ng/ml (0-0.045)
[2020-11-15] MEDS ORDERED: PANTOprazole 40 MG in SYRINGE 0 ML IV ONE (19:00)
[2020-11-15] MEDS ORDERED: FAMOTIDINE 20MG/5ML IV PUSH IV STA (19:00)
[2020-11-15 19:11] LABS: Poikilocytosis Present; Polychromasia 1+
[2020-11-15] MEDS ORDERED: KETOROLAC TROMETHAMINE 15 MG/ML VIAL IV PRN (20:05)
[2020-11-15] MEDS ORDERED: ACETAMINOPHEN 325 MG TAB PO PRN ×2 (20:12→22:30)
[2020-11-15] MEDS ORDERED: ALBUT/IPRATROP 3MG/0.5MG NEB 3 ML VIAL NEB STA (20:13)
[2020-11-15] MEDS ORDERED: traMADol HCL 50 MG TABLET PO STA (20:13)
--- NOTE | 2020-11-15 20:17 | History & Physical Report ---
Date of Service November 15, 2020 Assessment & Plan (1) Pancreatitis, acute: Plan: Mrs. Lara is a 80 yo woman with a PMHx of non-alcoholic liver disease who presented for 3 days of progressive weakness. - found to have acute pancreatitis on admission given elevated lipase level at 1113 (nearly 3 x upper limit of normal) - presumptive etiology choledocholithiasis vs. cholestasis (biliary sludge), as liver enzymes, bilirubin and alk phos are elevated. R value of 1.3. Cholestatic pattern of liver injury. - Other possible causes seem unlikely, as patient denies eoth use, calcium level is normal. Will check a fasting TG level with am labs. - Gallbladder US ordered; read pending - MRCP ordered for the morning, although patient expressed concern for inability to lay flat given her chronic back pain. - although empiric antibiotics not routinely used in management of acute pancreatitis, given associated leukocytosis (WBC elevated to 12) and concern for cholestasis/choledocholithiasis, she was placed on Zosyn - GI consult placed - NPO for bowel rest - 2 liter of NSS bolus + maintenance fluids at 125mls/hr - Tramadol and Tylenol for analgesia (refrain from opioid use given history, contraindication to NSAIDs) - zofran prn for nausea (2) Pulmonary nodule: Plan: - noted on CXR at R lung apex - unchanged from previous studies but appearance is concerning for possible malignancy - patient has been made aware of this nodule in the past and during this hospital stay - declines a desire for further imaging or biopsy - would not want treatment even if it were cancer (3) 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: Plan: - history of - follows with [facility] - INR mildly elevated at 1.2, suggestive of synthetic liver dysfunction - continue home dose lactulose, furosemide, coreg and spironolactone - MELD score of 9 (4) Hyponatremia: Plan: - Na level 131 on admission - suspect secondary to diminished PO intake in the setting of acute pancreatitis - IVF ordered - trend BMP (5) Current tobacco use: Plan: - encourage cessation - nicoderm patch prn while inpatient (6) Chronic back pain: Plan: - likely secondary to degenerative arthritis of the lumbar spine, multiple compression fractures, and opioid induced hyperalgesia - continue home dose gabapentin and cymbalta - lidoderm patch ordered - tramadol, tylenol, diclofenac prn - avoid opioids (per PCP and Pain management notes) (7) Abnormal Q waves on electrocardiogram: Plan: - noted on EKG in at least 2 contiguous leads (III, aVF, V4-V6) - suspect patient has suffered an OR at some point in the past - continue beta linnette - she is not on an KHALIDA/ARB, statin (likely due to liver disease), or a daily baby ASA (8) COPD (chronic obstructive pulmonary disease): Plan: - patient denies history of this condition, although it is on her problem list - 50 pack year smoking history makes it likely - wheezing and conversational dyspnea appreciated on exam; Duo Neb ordered on admission - recommend tobacco cessation - consider formal PFTs as outpatient (9) Hypothyroidism: Plan: - continue home dose levothyroxine (10) Hypertension: Plan: - continue home dose coreg and spironolactone DVT ppx: Lovenox (BID dosing due to BMI) Diet: NPO Code: DNR/DNI, I discussed with patient Dispo: Med/Surg. PT/OT ordered. History of Present Illness Primary Care Provider: Courtney Jules DO Mrs. Lara is a 80 yo woman with a PMHx of chronic back pain and non-alcoholic liver cirrhosis with associated varices who was brought in for evaluation by her son for progressive, generalized weakness over the past 3-4 days. While she has not had any fevers/chills, cough, congestion, dark or bloody stools, nausea/vomiting or diarrhea, her son notes that she has not had anything to eat in the preceding days - Mrs. Lara attributes this to lack of appetite. Due to her chronic liver disease, she gets occasional abdominal ultrasounds and paracenteses (if necessary). She had abdominal US done on 11/12/20, which showed no evidence of ascites. Thus a paracentesis was not performed. Her chronic back pain is due to degenerative arthritis of the lumbar spine, multiple compression fractures, and opioid induced hyperalgesia. She previously was on long-term opioids in the past for her back pain - her PCP discontinued them at the beginning of this year due to concerns of overuse (and subsequent sedation/respiratory depression). Her son states that ever since being off the opioids, she has been staying in bed for many hours of the day, and not participating in usual day to day activities. She has been seen once by [facility] - she was started on Gabapentin and is on Duloxetine for chronic neuropathic pain. Her PCP did give her a script for a muscle relaxer recently and Mrs. Lara consumed the entire script in 5-6 days, although it was supposed to last her for over 20. She has never seen a back surgeon. She has a known R upper lung nodule - she has been informed of it in the past. She has never had it biopsied. She states that she would not want to know if it were cancer, nor would she want to undergo treatment for it. Her son requests an evaluation for possible rehab placement. She has not been vaccinated against COVID 19. Past surg hx: cholecystectomy Social Hx: currently lives alone. Current everyday smoker - 50 pack year history. No eoth. In the ED, she was afebrile, with normal vital signs. WBC was elevated to 12 with neutrophil predominance. Her Hgb and platelet counts were normal. Her INR was elevated to 1.2. Her Na was low at 131. Electrolytes were otherwise WNL. Cr was 0.99, BUN elevated to 37. T bili up to 1.1, direct bili at 0.4. AST 97, ALT 79, Alk phos 186. Lipase elevated to 1113. Trop undetectable. Total protein elevated to 8.8. Albumin low. UA not concerning for acute infection. EKG showing NSR with concern for previous inferior and anterolateral infarct. CXR showing cardiomegaly with mild pulmonary vascular congestion. An irregular nodule at the R lung apex was also noted - this has been visualized on previous imaging studies and radiologist notes an appearance concerning for cancer. She was given 40mg IV protonix, 20mg IV famotidine, and 1 liter of NSS. Allergies Allergy/AdvReac Type Severity Reaction Status Date / Time aspirin AdvReac Intermediate advised Verified 11/15/20 18:06 not to take d/t cirrhosis and gi bleed cortisone AdvReac Intermediate "WEIRD Verified 11/15/20 18:06 FEELING NSAIDS (Non-Steroidal AdvReac Intermediate advised Verified 11/15/20 18:06 Anti-Inflamma not to take d/t cirrhosis and gi bleed Home Medications Medication Instructions Recorded Confirmed Type cholecalciferol (vitamin D3) 125 5,000 unit PO QAM #30 tab 08/17/18 11/15/20 History mcg (5,000 unit) tablet cyanocobalamin (vitamin B-12) 1,000 mcg PO QAM 09/17/18 11/15/20 History 1,000 mcg tablet (Vitamin B-12) ferrous sulfate 325 mg (65 mg 325 mg PO BID #180 tab 01/09/20 11/15/20 Rx iron) tablet (Iron (ferrous sulfate)) levothyroxine 125 mcg tablet 125 mcg PO QAM #90 tab 02/25/20 11/15/20 Rx (Synthroid) blood-glucose meter (OneTouch #1 ea 04/01/20 11/05/20 Rx Ultra2 Meter) blood-glucose meter (OneTouch #1 ea 04/01/20 11/05/20 Rx UltraMini) ondansetron 4 mg disintegrating 4 - 8 mg PO Q8H PRN #270 tab 07/02/20 11/15/20 Rx tablet carvedilol 25 mg tablet (Coreg) 25 mg PO BID #180 tab 07/13/20 11/15/20 Rx pantoprazole 40 mg tablet,delayed 40 mg PO QAM #90 tab 07/13/20 11/15/20 Rx release (Protonix) triamcinolone acetonide 0.5 % 1 applic TOPICAL BID PRN #60 g 09/10/20 11/15/20 Rx topical cream furosemide 20 mg tablet (Lasix) 20 mg PO QAM #90 tab 09/11/20 11/15/20 Rx meclizine 25 mg tablet (Dramamine 25 mg PO TID PRN #30 tab 09/11/20 11/15/20 Rx Less Drowsy) pramipexole 0.25 mg tablet 0.25 mg PO QPM PRN #90 tab 10/19/20 11/15/20 Rx gabapentin 300 mg capsule See Rx Instructions .ROUTE 10/27/20 11/15/20 Rx .COMPLEX #120 cap diclofenac sodium 1 % topical gel 2 g TOPICAL QID PRN #100 g 10/30/20 11/15/20 Rx albuterol sulfate 90 mcg/actuation 1 inh INHALATION QID PRN #8.5 g 11/05/20 11/15/20 Rx aerosol inhaler cyclobenzaprine 5 mg tablet 5 mg PO UD PRN 11/15/20 11/15/20 History duloxetine 30 mg capsule,delayed 60 mg PO DAILY 11/15/20 11/15/20 History release lactulose 10 gram/15 mL (15 mL) 30 g PO QAM 11/15/20 11/15/20 History oral solution nystatin 100,000 unit/gram topical 1 appln TOP BID PRN 11/15/20 11/15/20 History powder spironolactone 25 mg tablet 50 mg PO QAM 11/15/20 11/15/20 History (Aldactone) Past Med/Surg History Medical History Asthma HAS NOT USED INHALER FOR A LONG TIME Chronic back pain Chronic reflux esophagitis COPD (chronic obstructive pulmonary disease) PT DENIES Degenerative arthritis of lumbar spine Depression with anxiety Diabetes type 2, controlled diet controlled Diffuse myofascial pain syndrome Dyslipidemia Esophageal varices in cirrhosis Hypertension Hypothyroidism 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 Obesity Opioid-induced hyperalgesia Pulmonary nodule Restless legs syndrome Surgical History History of cholecystectomy History of colonoscopy History of esophagogastroduodenoscopy (EGD) History of hip surgery LEFT History of left cataract extraction History of open reduction and internal fixation (ORIF) procedure right lower extremity History of right cataract surgery History of tonsillectomy History of tooth extraction History of total abdominal hysterectomy and bilateral salpingo-oophorectomy Secondary to fibroid History of tubal ligation Family History Mother Diabetes Stroke Daughter Diabetes Father Pneumonia Other No family history of adverse response to anesthesia Denies family history of Ovarian cancer Prostate cancer Myocardial infarction Breast cancer Colorectal cancer Social History Smoking Status: Current every day smoker Tobacco Type: Cigarettes packs per day: 0.5; Cigarettes Per Day: 3; Second Hand Exposure: No; Hx Alcohol Use: No Hx Substance Use: No Preferred Language: Vietnamese Communication Ability: Effective Visual Impairment: No Limitations Hearing Ability: Normal Cherry Grower Required: No Beliefs That Will Affect Care: None marital status: / Current Living Situation: Alone current occupational status: retired How many Children do You have: 2 Other Information That Helps Us Care for You: No Feels Safe at Home: Yes Safety Concerns: Feels Safe At This Time Childhood Exposure to Second-Hand Smoke: Yes caffeine: Yes during the past year weight has: increased > 10 lbs Dental Care, Regularly: No Physical Activity Frequency: Does not Exercise Seatbelt Use: always Assistive Devices: Walker Review of Systems Review of Systems: All systems reviewed & are unremarkable except as noted in HPI & below Physical Exam Constitutional: WD/WN, vitals as above cooperative; no acute distress Eyes: + anicteric sclerae ENMT: external ear and nose normal, oropharynx normal Neck: trachea midline Respiratory: normal respiratory effort; no cough Auscultation: + wheezes (on expiration ) + dyspneic with conversation Cardiovascular: Rate/Rhythm: regular rate and regular rhythm Heart Sounds: normal S1, normal S2 and + murmur (systolic ejection ) Gastrointestinal (Abdomen): Inspection/Auscultation: abdomen normal to inspection and normal bowel sounds Percussion/Palpation: abdomen soft and + fluid wave; abdomen nontender and no guarding Musculoskeletal: Head/Neck/Chest: normocephalic and head atraumatic Neurologic: moves all extremities Psychiatric: A+Ox3, euthymic affect Results & Data Results & Data ([facility]) Vital Signs (Past 12 Hours) Vital Signs Temp Pulse Pulse Resp BP BP Pulse Ox 11/15/20 19:30 71 20 127/85 95 11/15/20 17:56 36.4 C L 76 18 129/81 94 Supervising Physician Co-Signing Physician Notes Attending addendum: I have physically seen this patient, have supervised the medical residents activities, and agree with the H&P unless as otherwise noted. 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
[2020-11-15] MEDS ORDERED: SIMETHICONE 80 MG CHEW PO PRN (20:46)
[2020-11-15] MEDS ORDERED: LORazepam 1 MG TAB PO STA (22:13)
[2020-11-15] MEDS ORDERED: DICLOFENAC SOD 1% GEL 100 GM TUBE EXT SCH (22:15)
[2020-11-15] MEDS ORDERED: PIPERACILL/TAZOBAC CONSULT ACTIVE PRN (22:18)
[2020-11-15] MEDS ORDERED: ONDANSETRON INJ 2 MG/ML 2 ML VIAL IV PRN (22:18)
[2020-11-15] MEDS ORDERED: PIPERACILLIN/TAZOBACTAM 3.375 GM in DEXTROSE 5% 100 ML IV SCH (22:18)
[2020-11-15] MEDS ORDERED: ALBUTEROL HFA 8 GM INHALER INH PRN (22:18)
[2020-11-15] MEDS ORDERED: POLYETHYLENE (MIRALAX) 17 GM PACK PO PRN (22:18)
[2020-11-15] MEDS ORDERED: SODIUM CHLORIDE 0.9% 1000ML 1,000 ML IV ONE (22:18)
[2020-11-15] MEDS ORDERED: PATIENT'S HEIGHT AND/OR WEIGHT NEEDED SCH (22:30)
[2020-11-15] MEDS ORDERED: PIPERACILLIN/TAZOBACTAM 4.5 GM in DEXTROSE 5% 100 ML IV ONE (23:00)
[2020-11-15] MEDS: carvediloL 25 MG TAB PO SCH (23:28)
[2020-11-15] MEDS: FERROUS SULFATE 325 MG TAB PO SCH (23:28)
[2020-11-15] MEDS: GABAPENTIN 600 MG TAB PO SCH (23:28)
[2020-11-16] MEDS: SODIUM CHLORIDE 0.9% 1000ML 1,000 ML IV SCH ×3 (01:22→19:22)
[2020-11-16] MEDS: PRAMIPEXOLE DIHYDROCHLO 0.25 MG TAB PO PRN ×2 (02:22→13:13)
[2020-11-16] MEDS: LEVOTHYROXINE SODIUM 125 MCG TABLET PO SCH (05:55)
[2020-11-16] MEDS: PIPERACILLIN/TAZOBACTAM 4.5 GM in DEXTROSE 5% 100 ML IV SCH ×2 (05:55→13:12)
[2020-11-16 06:49] LABS: Macrocytosis Present
[2020-11-16 07:49] LABS: Basophils # (auto) 0.01 K/uL (0-0.2); Basophils % (auto) 0.1 %; Eosinophils # (auto) 0.02 K/uL (0-0.5); Eosinophils % (auto) 0.3 %; Hematocrit (blood only) 39.6 % (37-47); Hemoglobin 13.1 g/dL (12.0-16.0); Immature Granulocytes # (auto) 0.02 K/uL (0.00-0.02); Immature Granulocytes % (auto) 0.3 %; Lymphocytes # (auto) 0.98 K/uL (1.2-3.4); Lymphocytes % (auto) 12.4 %; Mean Corpuscular Hemoglobin 38.8 pg (25-34); Mean Corpuscular Hgb Conc 33.1 g/dL (32-36); Mean Corpuscular Volume 117.2 fL (80-100); Mean Platelet Volume 9.1 fL (7.4-10.4); Monocytes % (auto) 11.3 %; Neutrophils % (auto) 75.6 %; Platelet Count 133 K/uL (130-400); RDW Coefficient of Variation 13.5 % (11.5-14.5); RDW Standard Deviation 58.1 fL (36.4-46.3); Red Blood Count 3.38 M/uL (4.2-5.4); White Blood Count 7.93 K/uL (4.8-10.8)
[2020-11-16 08:08] LABS: Albumin Level 2.7 gm/dl (3.4-5.0); BUN Creatinine Ratio 34.3 (10-20); Calcium 8.7 mg/dl (8.5-10.1); Est GFR (African American) 88.5 ml/min; Est GFR (Non-African American) 76.3 ml/min; Macrocytosis Present; Potassium 4.3 mmol/L (3.5-5.1)
[2020-11-16 08:21] LABS: Albumin Globulin Ratio 0.6 (0.9-2); Bilirubin,Total 0.9 mg/dl (0.2-1); Globulin 4.3 gm/dl (2.5-4.0)
--- NOTE | 2020-11-16 08:30 | Ultrasound Report ---
US gallbladder HISTORY: 80 years-old Female suspect choledocolithiasis acute right upper quadrant abdominal pain COMPARISON: Abdominal ultrasound 09/03/2020 TECHNIQUE: Multiple real-time sonographic images of the abdominal right upper quadrant were obtained assessing grayscale appearance and color flow FINDINGS: The visualized pancreas is unremarkable. Heterogeneous coarse morphology of the liver with marginal n odularity compatible cirrhosis. No hepatic mass lesion identified. Cholecystectomy. The common bile d uct is dilated measuring up to 2.6 cm, previously 2 cm on the 09/03/2020 exam. The right kidney is not diagnostically visualized. No ascites. IMPRESSION: 1. Cirrhotic morphology of the liver. No ascites. 2. Cholecystectomy. 3. Dilated common bile duct measuring up to 2.6 cm slightly increased in size from 09/03/2020. This ma y be on a postsurgical basis however should be correlated with LFTs. No intrahepatic biliary ductal d ilation identified. ACT 112: Negative or not required by law. The above report was generated using voice recognition software. It may contain grammatical, syntax o r spelling errors. Electronically signed by: Fadi Ugalde M.D. 11/16/2020 8:29 AM
[2020-11-16] MEDS: SPIRONOLACTONE 25 MG TAB PO SCH (08:54)
[2020-11-16] MEDS: PANTOprazole 40 MG TAB PO SCH (08:54)
[2020-11-16] MEDS: GABAPENTIN 300 MG CAP PO SCH ×2 (08:55→14:42)
[2020-11-16] MEDS: DULoxetine HCL 60 MG CAP PO SCH (08:55)
[2020-11-16] MEDS: FUROSEMIDE 20 MG TAB PO SCH (08:56)
[2020-11-16] MEDS: LACTULOSE SYRUP 30 GM/45 ML UDP PO SCH ×2 (08:56→08:59)
[2020-11-16] MEDS: LIDOCAINE 5% 1 PATCH TD SCH (08:56)
[2020-11-16] MEDS: carvediloL 25 MG TAB PO SCH ×2 (08:57→20:48)
[2020-11-16] MEDS: FERROUS SULFATE 325 MG TAB PO SCH ×2 (08:57→20:48)
[2020-11-16] MEDS: ENOXAPARIN INJ 40 MG/0.4 ML SYR SQ SCH ×2 (08:59→20:48)
[2020-11-16] MEDS: DICLOFENAC SOD 1% GEL 100 GM TUBE EXT PRN (09:05)
--- NOTE | 2020-11-16 10:23 | Gastrointestinal Consultation ---
Date of Consultation November 16, 2020 Assessment & Plan (1) Acute pancreatitis: 80 year old female admitted w. weakness, abd pain and back pain with elevated lipase. Denies ETOH, herbals or new medications. She has biliary dilation, s/p EUS in 2019 w/o evidence of retained stone or etiology at that time. thought secondary to ccy in addition to narcotic use - NPO for bowel rest - ABD imaging recommened either CTAP or MRI abd - LR 125/150 mL/hr - Antiemetics PRN - Analgesia PRN - Monthly paracentesis w. Albumin 25% 25 G before and after, send cell count and culture, no more than 6L off - Continue daily Lasix20/Aldactone 50 - Should continue lactulose 15 mL BID - Continue daily carvedilol - Continue daily pantoprazole - Would recommend pulmonary consult for abnormal CXR (? bronchogenic malignancy) - Low NA diet, less than 2G - Reiterated to pt importance of limiting Tylenol to < 2 gm daily; may need pain management assistance to optimize her regimen and avoid hepatotoxins - Daily weights - No NSAIDs - No alcohol - Due for EGD/Colonoscopy later in 2020 Supervising Physician Co-Signing Physician Notes Attg add: I interviewed and examined pt, reviewed chart and labs. Pt with NAFLD cirrhosis, h/o vol overload, with associated hyperbili and CBD dil, now admit with poor appetite, epigastric pain relieved by gas, and weakness, found to have elevated lipase. She appears mildly dry on admit, with B UN 30's on admit fellto 20's this am, Hgb 15 to 13. Her clinical syndrome may be c/w pancreatitis; ddx = gas from lactulose. She was hemoconcentrated on admit, rec gentle hydration. CT for pancreatic imaging. History of Present Illness Reason for Consultation: panc Requesting Physician: Mohit Attending Physician: Lida Rueda MD History of Present Illness 80 year old female admitted w/ progressive weakness, vague abd pain and back pain for 3 days, concern for acute pancreatitis given eleevated lipase. She notes now she is feeling well form GI standpoint. Denies abd pain. No nausea, vomiting. Is hungry. Denies black/bloody stools. No fever, chills, CP. Denies SOB but does not appear to be breathing comfortable this AM. Diagnosis: NAFLD cirrhosis Decompensations Ascites:lasix 20 mg, aldactone 50 mgw/ scheduled OP paracentesisevery 3/4 weeks Varices: yes, grade II on carvedilol Hepatic Encephalopathy: yes on lactulose, xifaxan Screenings MELD:MELD-Na score: 7 at 12/21/2018 11:21 AM Calculated from: Serum Creatinine: 0.8 mg/dL (Rounded to 1 mg/dL) at 12/21/2018 11:21 AM Serum Sodium: 135 mmol/L at 12/21/2018 11:21 AM Total Bilirubin: 0.3 mg/dL (Rounded to 1 mg/dL) at 12/21/2018 11:21 AM INR(ratio): 1.14 at 12/21/2018 11:21 AM Age: 78 years EGD: 2020 RUQ US: dueinMay 2019 Immunizations:immune Hep A ABD US 2020: Cirrhotic morphology of the liver. No ascites. 2. Cholecystectomy. 3. Dilated common bile duct measuring up to 2.6 cm slightly increased in size from 09/03/2020. This may be on a postsurgical basis however should be correlated with LFTs. No intrahepatic biliary ductal dilation identified. ABD US 2020:Successful ultrasound-guided paracentesis with removal of approximately 6.5 liters of ascitic fluid. Portal Vein US 2020:Patent portal and hepatic veins with normal direction of the flow.Liver cirrhosis. Ascites. EUS 2019 Evidence of a cholecystectomy. - There was dilation in the common bile duct which measured up to 16 mm. - There was abnormal echogenicity in the visualized portion of the liver. This was hypoechoic. Tissue has not been obtained. However, the endosonographic appearance is consistent with cirrhosis. - Endosonographic images of the left adrenal gland were unremarkable. - There was no sign of significant pathology in the entire pancreas. - No specimens collected. EGD 2019:Grade II esophageal varices. No stigmata of bleeding.Portal hypertensive gastropathy. No fresh or altered blood.Normal examined duodenum.No specimens collected. Colonoscopy 2018: Diverticulosis in the sigmoid colon. Hemorrhoids. The examination was otherwise normal. No specimens collected. EGD 2019: Non-bleeding grade II esophageal varices. Mild portal gastropathy. EGD 2019: Normal upper third of esophagus and middle third ofesophagus. Non- bleeding grade II esophageal varices. Portal hypertensive gastropathy.Normal examined duodenum. No specimens collected. Colonoscopy 2018: The examined portion of the ileum was normal. Two 4 to 6 mm polyps in the ascending colon, removed witha cold snare. Resected and retrieved. One 5 mm polyp in the transverse colon, removed with acold snare. Resected and retrieved.Moderate diverticulosis in the sigmoid colon.Melanosis in the colon. Internal hemorrhoids. The examination was otherwise normal. Allergies Allergy/AdvReac Type Severity Reaction Status Date / Time aspirin AdvReac Intermediate advised Verified 11/15/20 18:06 not to take d/t cirrhosis and gi bleed cortisone AdvReac Intermediate "WEIRD Verified 11/15/20 18:06 FEELING NSAIDS (Non-Steroidal AdvReac Intermediate advised Verified 11/15/20 18:06 Anti-Inflamma not to take d/t cirrhosis and gi bleed Home Medications Medication Instructions Recorded Confirmed Type cholecalciferol (vitamin D3) 125 5,000 unit PO QAM #30 tab 08/17/18 11/15/20 History mcg (5,000 unit) tablet cyanocobalamin (vitamin B-12) 1,000 mcg PO QAM 09/17/18 11/15/20 History 1,000 mcg tablet (Vitamin B-12) ferrous sulfate 325 mg (65 mg 325 mg PO BID #180 tab 01/09/20 11/15/20 Rx iron) tablet (Iron (ferrous sulfate)) levothyroxine 125 mcg tablet 125 mcg PO QAM #90 tab 02/25/20 11/15/20 Rx (Synthroid) blood-glucose meter (OneTouch #1 ea 04/01/20 11/05/20 Rx Ultra2 Meter) blood-glucose meter (OneTouch #1 ea 04/01/20 11/05/20 Rx UltraMini) ondansetron 4 mg disintegrating 4 - 8 mg PO Q8H PRN #270 tab 07/02/20 11/15/20 Rx tablet carvedilol 25 mg tablet (Coreg) 25 mg PO BID #180 tab 07/13/20 11/15/20 Rx pantoprazole 40 mg tablet,delayed 40 mg PO QAM #90 tab 07/13/20 11/15/20 Rx release (Protonix) triamcinolone acetonide 0.5 % 1 applic TOPICAL BID PRN #60 g 09/10/20 11/15/20 Rx topical cream furosemide 20 mg tablet (Lasix) 20 mg PO QAM #90 tab 09/11/20 11/15/20 Rx meclizine 25 mg tablet (Dramamine 25 mg PO TID PRN #30 tab 09/11/20 11/15/20 Rx Less Drowsy) pramipexole 0.25 mg tablet 0.25 mg PO QPM PRN #90 tab 10/19/20 11/15/20 Rx gabapentin 300 mg capsule See Rx Instructions .ROUTE 10/27/20 11/15/20 Rx .COMPLEX #120 cap diclofenac sodium 1 % topical gel 2 g TOPICAL QID PRN #100 g 10/30/20 11/15/20 Rx albuterol sulfate 90 mcg/actuation 1 inh INHALATION QID PRN #8.5 g 11/05/20 11/15/20 Rx aerosol inhaler cyclobenzaprine 5 mg tablet 5 mg PO UD PRN 11/15/20 11/15/20 History duloxetine 30 mg capsule,delayed 60 mg PO DAILY 11/15/20 11/15/20 History release lactulose 10 gram/15 mL (15 mL) 30 g PO QAM 11/15/20 11/15/20 History oral solution nystatin 100,000 unit/gram topical 1 appln TOP BID PRN 11/15/20 11/15/20 History powder spironolactone 25 mg tablet 50 mg PO QAM 11/15/20 11/15/20 History (Aldactone) Patient History Medical History Asthma HAS NOT USED INHALER FOR A LONG TIME Chronic back pain Chronic reflux esophagitis COPD (chronic obstructive pulmonary disease) PT DENIES Degenerative arthritis of lumbar spine Depression with anxiety Diabetes type 2, controlled diet controlled Diffuse myofascial pain syndrome Dyslipidemia Esophageal varices in cirrhosis Hypertension Hypothyroidism 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 Obesity Opioid-induced hyperalgesia Pulmonary nodule Restless legs syndrome Surgical History History of cholecystectomy History of colonoscopy History of esophagogastroduodenoscopy (EGD) History of hip surgery LEFT History of left cataract extraction History of open reduction and internal fixation (ORIF) procedure right lower extremity History of right cataract surgery History of tonsillectomy History of tooth extraction History of total abdominal hysterectomy and bilateral salpingo-oophorectomy Secondary to fibroid History of tubal ligation Family History Mother Diabetes Stroke Daughter Diabetes Father Pneumonia Other No family history of adverse response to anesthesia Denies family history of Ovarian cancer Prostate cancer Myocardial infarction Breast cancer Colorectal cancer Social History Smoking Status: Current every day smoker Tobacco Type: Cigarettes packs per day: 0.5; Cigarettes Per Day: 3; Second Hand Exposure: No; Hx Alcohol Use: No Hx Substance Use: No Preferred Language: Afghan Communication Ability: Effective Visual Impairment: No Limitations Hearing Ability: Normal Dental Technologist Required: No Beliefs That Will Affect Care: None marital status: / Current Living Situation: Alone current occupational status: retired How many Children do You have: 2 Other Information That Helps Us Care for You: No Feels Safe at Home: Yes Safety Concerns: Feels Safe At This Time Childhood Exposure to Second-Hand Smoke: Yes caffeine: Yes during the past year weight has: increased > 10 lbs Dental Care, Regularly: No Physical Activity Frequency: Does not Exercise Seatbelt Use: always Assistive Devices: Walker Review of Systems Review of Systems: All systems reviewed & are unremarkable except as noted in HPI & below Physical Exam Constitutional: WD/WN, vitals as above Neck: trachea midline, no thyromegaly Respiratory: normal respiratory effort Cardiovascular: RRR, no murmur, no edema Gastrointestinal (Abdomen): normal bowel sounds, soft, nontender, no hepatosplenomegaly Skin: no rashes, warm and dry Results & Data ([facility]) Vital Signs (Past 12 Hours) Vital Signs Temp Pulse Resp BP Pulse Ox 11/16/20 07:05 37 C 69 16 129/73 93 Laboratory Results 11/16/20 11/16/20 11/15/20 Range/Units 07:38 07:38 19:20 WBC 7.93 (4.8-10.8) K/uL RBC 3.38 L (4.2-5.4) M/uL Hgb 13.1 (12.0-16.0) g/dL Hct 39.6 (37-47) % MCV 117.2 H (80-100) fL MCH 38.8 H (25-34) pg MCHC 33.1 (32-36) g/dL RDW Std Deviation 58.1 H (36.4-46.3) fL RDW Coeff of Mile 13.5 (11.5-14.5) % Plt Count 133 (130-400) K/uL MPV 9.1 (7.4-10.4) fL Immature Gran % (Auto) 0.3 % Neut % (Auto) 75.6 % Lymph % (Auto) 12.4 % [place] % (Auto) 11.3 % Eos % (Auto) 0.3 % Baso % (Auto) 0.1 % Neut # (Auto) 6.00 (1.4-6.5) K/uL Lymph # (Auto) 0.98 L (1.2-3.4) K/uL [place] # (Auto) 0.90 H (0.11-0.59) K/uL Eos # (Auto) 0.02 (0-0.5) K/uL Baso # (Auto) 0.01 (0-0.2) K/uL Immature Gran # (Auto) 0.02 (0.00-0.02) K/uL Hypersegmented Neuts 1+ Polychromasia Poikilocytosis Macrocytosis Present PT (9.0-12.0) Seconds INR (0.9-1.1) APTT (21.0-31.0) Seconds PTT Ratio Sodium 134 L (136-145) mmol/L Potassium 4.3 (3.5-5.1) mmol/L Chloride 104 (98-107) mmol/L Carbon Dioxide 25 (21-32) mmol/L Anion Gap 6.0 (3-11) BUN 26 H (7-18) mg/dl Creatinine 0.75 (0.6-1.2) mg/dl Est Cr Clr Drug Dosing 74.0 Est GFR ( Amer) 88.5 ml/min Est GFR (Non-Af Amer) 76.3 ml/min BUN/Creatinine Ratio 34.3 H (10-20) Glucose 102 H (70-99) mg/dl Calcium 8.7 (8.5-10.1) mg/dl Total Bilirubin 0.9 (0.2-1) mg/dl Direct Bilirubin (0-0.2) mg/dl AST 53 H (15-37) U/L ALT 56 (12-78) U/L Alkaline Phosphatase 144 H (45-117) U/L Troponin I (0-0.045) ng/ml Total Protein 7.0 D (6.4-8.2) gm/dl Albumin 2.7 L (3.4-5.0) gm/dl Globulin 4.3 H (2.5-4.0) gm/dl Albumin/Globulin Ratio 0.6 L (0.9-2) Triglycerides 91 (0-150) mg/dl Lipase (73-393) U/L Urine Color Urine Appearance (Clear) Urine pH (4.5-7.5) Ur Specific [place] (1.000-1.030) Urine Protein (Negative) Urine Glucose (UA) (Negative) Urine Ketones (Negative) Urine Blood (Negative) Urine Nitrite (Negative) Urine Bilirubin (Negative) Urine Urobilinogen (Negative) Ur Leukocyte Esterase (Negative) Urine WBC (Auto) (0-5) /hpf Urine RBC (Auto) (0-4) /hpf U Hyaline Cast (Auto) (0-5) /lpf U Epithel Cells (Auto) (0-5) /lpf Urine Bacteria (Auto) (Negative) Urine Yeast COVID-19 Eval Order SARS-CoV-2 (PCR) NEGATIVE (Negative) 11/15/20 11/15/20 11/15/20 Range/Units 19:20 18:20 18:20 WBC (4.8-10.8) K/uL RBC (4.2-5.4) M/uL Hgb (12.0-16.0) g/dL Hct (37-47) % MCV (80-100) fL MCH (25-34) pg MCHC (32-36) g/dL RDW Std Deviation (36.4-46.3) fL RDW Coeff of Mile (11.5-14.5) % Plt Count (130-400) K/uL MPV (7.4-10.4) fL Immature Gran % (Auto) % Neut % (Auto) % Lymph % (Auto) % [place] % (Auto) % Eos % (Auto) % Baso % (Auto) % Neut # (Auto) (1.4-6.5) K/uL Lymph # (Auto) (1.2-3.4) K/uL [place] # (Auto) (0.11-0.59) K/uL Eos # (Auto) (0-0.5) K/uL Baso # (Auto) (0-0.2) K/uL Immature Gran # (Auto) (0.00-0.02) K/uL Hypersegmented Neuts Polychromasia Poikilocytosis Macrocytosis PT 12.2 H (9.0-12.0) Seconds INR 1.2 H (0.9-1.1) APTT 29.0 (21.0-31.0) Seconds PTT Ratio 1.1 Sodium 131 L (136-145) mmol/L Potassium 4.6 (3.5-5.1) mmol/L Chloride 97 L (98-107) mmol/L Carbon Dioxide 26 (21-32) mmol/L Anion Gap 8.0 (3-11) BUN 37 H (7-18) mg/dl Creatinine 0.99 (0.6-1.2) mg/dl Est Cr Clr Drug Dosing Not Reportable Est GFR ( Amer) 63.3 ml/min Est GFR (Non-Af Amer) 54.6 ml/min BUN/Creatinine Ratio 36.8 H (10-20) Glucose 130 H (70-99) mg/dl Calcium 9.4 (8.5-10.1) mg/dl Total Bilirubin 1.1 H (0.2-1) mg/dl Direct Bilirubin 0.4 H (0-0.2) mg/dl AST 97 H (15-37) U/L ALT 79 H (12-78) U/L Alkaline Phosphatase 186 H (45-117) U/L Troponin I < 0.015 (0-0.045) ng/ml Total Protein 8.8 H (6.4-8.2) gm/dl Albumin 3.3 L (3.4-5.0) gm/dl Globulin (2.5-4.0) gm/dl Albumin/Globulin Ratio (0.9-2) Triglycerides (0-150) mg/dl Lipase 1113 H (73-393) U/L Urine Color Urine Appearance (Clear) Urine pH (4.5-7.5) Ur Specific [place] (1.000-1.030) Urine Protein (Negative) Urine Glucose (UA) (Negative) Urine Ketones (Negative) Urine Blood (Negative) Urine Nitrite (Negative) Urine Bilirubin (Negative) Urine Urobilinogen (Negative) Ur Leukocyte Esterase (Negative) Urine WBC (Auto) (0-5) /hpf Urine RBC (Auto) (0-4) /hpf U Hyaline Cast (Auto) (0-5) /lpf U Epithel Cells (Auto) (0-5) /lpf Urine Bacteria (Auto) (Negative) Urine Yeast COVID-19 Eval Order Covid19 at [facility] SARS-CoV-2 (PCR) (Negative) 11/15/20 11/15/20 Range/Units 18:20 18:11 WBC 12.63 H (4.8-10.8) K/uL RBC 3.90 L (4.2-5.4) M/uL Hgb 15.5 (12.0-16.0) g/dL Hct 45.6 (37-47) % MCV 116.9 H (80-100) fL MCH 39.7 H (25-34) pg MCHC 34.0 (32-36) g/dL RDW Std Deviation 56.9 H (36.4-46.3) fL RDW Coeff of Mile 13.4 (11.5-14.5) % Plt Count 199 (130-400) K/uL MPV 9.0 (7.4-10.4) fL Immature Gran % (Auto) 0.4 % Neut % (Auto) 83.3 % Lymph % (Auto) 8.2 % [place] % (Auto) 7.9 % Eos % (Auto) 0.2 % Baso % (Auto) 0.0 % Neut # (Auto) 10.51 H (1.4-6.5) K/uL Lymph # (Auto) 1.04 L (1.2-3.4) K/uL [place] # (Auto) 1.00 H (0.11-0.59) K/uL Eos # (Auto) 0.03 (0-0.5) K/uL Baso # (Auto) 0.00 (0-0.2) K/uL Immature Gran # (Auto) 0.05 H (0.00-0.02) K/uL Hypersegmented Neuts 1+ Polychromasia 1+ Poikilocytosis Present Macrocytosis Present PT (9.0-12.0) Seconds INR (0.9-1.1) APTT (21.0-31.0) Seconds PTT Ratio Sodium (136-145) mmol/L Potassium (3.5-5.1) mmol/L Chloride (98-107) mmol/L Carbon Dioxide (21-32) mmol/L Anion Gap (3-11) BUN (7-18) mg/dl Creatinine (0.6-1.2) mg/dl Est Cr Clr Drug Dosing Est GFR ( Amer) ml/min Est GFR (Non-Af Amer) ml/min BUN/Creatinine Ratio (10-20) Glucose (70-99) mg/dl Calcium (8.5-10.1) mg/dl Total Bilirubin (0.2-1) mg/dl Direct Bilirubin (0-0.2) mg/dl AST (15-37) U/L ALT (12-78) U/L Alkaline Phosphatase (45-117) U/L Troponin I (0-0.045) ng/ml Total Protein (6.4-8.2) gm/dl Albumin (3.4-5.0) gm/dl Globulin (2.5-4.0) gm/dl Albumin/Globulin Ratio (0.9-2) Triglycerides (0-150) mg/dl Lipase (73-393) U/L Urine Color Dark Yellow Urine Appearance Cloudy A (Clear) Urine pH 6.0 (4.5-7.5) Ur Specific [place] 1.037 H (1.000-1.030) Urine Protein Trace H (Negative) Urine Glucose (UA) Negative (Negative) Urine Ketones Trace H (Negative) Urine Blood Negative (Negative) Urine Nitrite Negative (Negative) Urine Bilirubin 1+ H (Negative) Urine Urobilinogen Negative (Negative) Ur Leukocyte Esterase Negative (Negative) Urine WBC (Auto) 1-5 (0-5) /hpf Urine RBC (Auto) 0-4 (0-4) /hpf U Hyaline Cast (Auto) 5-10 H (0-5) /lpf U Epithel Cells (Auto) >30 H (0-5) /lpf Urine Bacteria (Auto) Negative (Negative) Urine Yeast Not Reportable COVID-19 Eval Order SARS-CoV-2 (PCR) (Negative) (1) Acute pancreatitis Acute pancreatitis complication: unspecified Pancreatitis type: unspecified pancreatitis type Qualified Code(s): K85.90 - Acute pancreatitis without necrosis or infection, unspecified
--- NOTE | 2020-11-16 13:05 | Hospitalist Progress Note ---
Date of Service November 16, 2020 Assessment & Plan (1) Pancreatitis, acute: Plan: Mrs. Lara is a 80 yo woman with a PMHx of non-alcoholic liver disease who presented for 3 days of progressive weakness. - found to have suspected acute pancreatitis on admission given elevated lipase level at 1113 (nearly 3 x upper limit of normal) although has no abdominal pain so a bit atypical - presumptive etiology choledocholithiasis vs. cholestasis (biliary sludge), as liver enzymes, bilirubin and alk phos are elevated. R value of 1.3. Cholestatic pattern of liver injury. - Other possible causes seem unlikely, as patient denies eoth use, calcium level is normal. Triglycerides are normal - Gallbladder US shows dilated CBD 2.6 cm, she is status post cholecystectomy, shows cirrhosis -Patient refuses MRI due to claustrophobia and also refuses CT of the abdomen/pelvis -She is feeling better and requesting a diet-advance to clear liquids -LFTs have improved today no longer an cholestatic pattern Nontender on examination Discontinue Zosyn as no evidence of infection -Appreciate GI consultation -Follow-up with GI as an outpatient for cirrhosis -Continue IV fluids -Follow lipase and LFTs in the morning (2) Pulmonary nodule: Plan: - noted on CXR at R lung apex - unchanged from previous studies but appearance is concerning for possible malignancy - patient has been made aware of this nodule in the past and during this hospital stay by the admitting physician as well as myself - declines a desire for further imaging or biopsy - would not want treatment even if it were cancer (3) 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: Plan: - history of - follows with [facility] - INR mildly elevated at 1.2, suggestive of synthetic liver dysfunction - continue home dose lactulose, carvedilol - MELD score of 9 -Will hold Lasix and spironolactone while getting IV fluids for pancreatitis (4) Hyponatremia: Plan: - Na level 131 on admission and now improved to 134 - suspect secondary to diminished PO intake in the setting of acute pancreatitis - IVF ordered - trend BMP -Did receive Lasix and spironolactone this morning but will now hold (5) Current tobacco use: Plan: - encourage cessation - nicoderm patch prn while inpatient (6) Chronic back pain: Plan: - likely secondary to degenerative arthritis of the lumbar spine, multiple compression fractures, and opioid induced hyperalgesia - continue home dose gabapentin and cymbalta - lidoderm patch ordered - tramadol, tylenol, diclofenac prn - avoid opioids (per PCP and Pain management notes) PT/OT consults placed (7) Abnormal Q waves on electrocardiogram: Plan: - noted on EKG in at least 2 contiguous leads (III, aVF, V4-V6) - suspect patient has suffered an HI at some point in the past - continue beta linnette - she is not on an KHALIDA/ARB, statin (likely due to liver disease), or a daily baby ASA (8) COPD (chronic obstructive pulmonary disease): Plan: - patient denies history of this condition, although it is on her problem list - 50 pack year smoking history makes it likely - wheezing and conversational dyspnea appreciated on exam upon admission but now improved; continue duo Neb ordered on admission - recommend tobacco cessation - consider formal PFTs as outpatient (9) Hypothyroidism: Plan: - continue home dose levothyroxine TSH normal in April 2020 (10) Hypertension: Plan: - continue home dose coreg and holding diuretics as above Plan: DVT ppx: Lovenox (BID dosing due to BMI) Code: DNR/DNI Dispo: Med/Surg. PT/OT ordered. Patient states she will refuse overnight rehab and will only do home health Admission and Anticipated Discharge Date Admission Date: November 15, 2020 Subjective Patient denies any abdominal pain. Reports passing flatus and her discomfort that was present is now gone. Denies any nausea or vomiting. Last bowel movement was 2 days ago and reports she is hungry and has not eaten anything in 2 days. She reports generalized weakness but that she does get around with a walker at home. She absolutely refuses to go to MRI or CT scan even after describing the purpose of getting the test. She does not want any further work-up of her lung nodule as well. She also refuses to go to rehab Review of Systems Review of Systems: All systems reviewed & are unremarkable except as noted in HPI & below Physical Exam Constitutional: WD/WN, vitals as above Eyes: + anicteric sclerae Neck: trachea midline, no thyromegaly Respiratory: normal respiratory effort, lungs clear to auscultation Cardiovascular: RRR, no murmur, no edema Chest (Breasts): Chest: normal inspection of chest Gastrointestinal (Abdomen): normal bowel sounds, soft, nontender, no hepatosplenomegaly Musculoskeletal: Extremities: extremities normal to inspection; no cyanosis and no clubbing Skin: no rashes, warm and dry Neurologic: moves all extremities and awake; no focal motor deficits Psychiatric: A+Ox3, euthymic affect Lymphatic: no lymphedema Results & Data Results & Data ([facility]) Vital Signs (Past 12 Hours) Vital Signs Temp Pulse Resp BP Pulse Ox 11/16/20 07:05 37 C 69 16 129/73 93 Laboratory Results 11/16/20 11/16/20 11/15/20 Range/Units 07:38 07:38 19:20 WBC 7.93 (4.8-10.8) K/uL RBC 3.38 L (4.2-5.4) M/uL Hgb 13.1 (12.0-16.0) g/dL Hct 39.6 (37-47) % MCV 117.2 H (80-100) fL MCH 38.8 H (25-34) pg MCHC 33.1 (32-36) g/dL RDW Std Deviation 58.1 H (36.4-46.3) fL RDW Coeff of Mile 13.5 (11.5-14.5) % Plt Count 133 (130-400) K/uL MPV 9.1 (7.4-10.4) fL Immature Gran % (Auto) 0.3 % Neut % (Auto) 75.6 % Lymph % (Auto) 12.4 % [place] % (Auto) 11.3 % Eos % (Auto) 0.3 % Baso % (Auto) 0.1 % Neut # (Auto) 6.00 (1.4-6.5) K/uL Lymph # (Auto) 0.98 L (1.2-3.4) K/uL [place] # (Auto) 0.90 H (0.11-0.59) K/uL Eos # (Auto) 0.02 (0-0.5) K/uL Baso # (Auto) 0.01 (0-0.2) K/uL Immature Gran # (Auto) 0.02 (0.00-0.02) K/uL Hypersegmented Neuts 1+ Polychromasia Poikilocytosis Macrocytosis Present PT (9.0-12.0) Seconds INR (0.9-1.1) APTT (21.0-31.0) Seconds PTT Ratio Sodium 134 L (136-145) mmol/L Potassium 4.3 (3.5-5.1) mmol/L Chloride 104 (98-107) mmol/L Carbon Dioxide 25 (21-32) mmol/L Anion Gap 6.0 (3-11) BUN 26 H (7-18) mg/dl Creatinine 0.75 (0.6-1.2) mg/dl Est Cr Clr Drug Dosing 74.0 Est GFR ( Amer) 88.5 ml/min Est GFR (Non-Af Amer) 76.3 ml/min BUN/Creatinine Ratio 34.3 H (10-20) Glucose 102 H (70-99) mg/dl Calcium 8.7 (8.5-10.1) mg/dl Total Bilirubin 0.9 (0.2-1) mg/dl Direct Bilirubin (0-0.2) mg/dl AST 53 H (15-37) U/L ALT 56 (12-78) U/L Alkaline Phosphatase 144 H (45-117) U/L Troponin I (0-0.045) ng/ml Total Protein 7.0 D (6.4-8.2) gm/dl Albumin 2.7 L (3.4-5.0) gm/dl Globulin 4.3 H (2.5-4.0) gm/dl Albumin/Globulin Ratio 0.6 L (0.9-2) Triglycerides 91 (0-150) mg/dl Lipase (73-393) U/L Urine Color Urine Appearance (Clear) Urine pH (4.5-7.5) Ur Specific [place] (1.000-1.030) Urine Protein (Negative) Urine Glucose (UA) (Negative) Urine Ketones (Negative) Urine Blood (Negative) Urine Nitrite (Negative) Urine Bilirubin (Negative) Urine Urobilinogen (Negative) Ur Leukocyte Esterase (Negative) Urine WBC (Auto) (0-5) /hpf Urine RBC (Auto) (0-4) /hpf U Hyaline Cast (Auto) (0-5) /lpf U Epithel Cells (Auto) (0-5) /lpf Urine Bacteria (Auto) (Negative) Urine Yeast COVID-19 Eval Order SARS-CoV-2 (PCR) NEGATIVE (Negative) 11/15/20 11/15/20 11/15/20 Range/Units 19:20 18:20 18:20 WBC (4.8-10.8) K/uL RBC (4.2-5.4) M/uL Hgb (12.0-16.0) g/dL Hct (37-47) % MCV (80-100) fL MCH (25-34) pg MCHC (32-36) g/dL RDW Std Deviation (36.4-46.3) fL RDW Coeff of Mile (11.5-14.5) % Plt Count (130-400) K/uL MPV (7.4-10.4) fL Immature Gran % (Auto) % Neut % (Auto) % Lymph % (Auto) % [place] % (Auto) % Eos % (Auto) % Baso % (Auto) % Neut # (Auto) (1.4-6.5) K/uL Lymph # (Auto) (1.2-3.4) K/uL [place] # (Auto) (0.11-0.59) K/uL Eos # (Auto) (0-0.5) K/uL Baso # (Auto) (0-0.2) K/uL Immature Gran # (Auto) (0.00-0.02) K/uL Hypersegmented Neuts Polychromasia Poikilocytosis Macrocytosis PT 12.2 H (9.0-12.0) Seconds INR 1.2 H (0.9-1.1) APTT 29.0 (21.0-31.0) Seconds PTT Ratio 1.1 Sodium 131 L (136-145) mmol/L Potassium 4.6 (3.5-5.1) mmol/L Chloride 97 L (98-107) mmol/L Carbon Dioxide 26 (21-32) mmol/L Anion Gap 8.0 (3-11) BUN 37 H (7-18) mg/dl Creatinine 0.99 (0.6-1.2) mg/dl Est Cr Clr Drug Dosing Not Reportable Est GFR ( Amer) 63.3 ml/min Est GFR (Non-Af Amer) 54.6 ml/min BUN/Creatinine Ratio 36.8 H (10-20) Glucose 130 H (70-99) mg/dl Calcium 9.4 (8.5-10.1) mg/dl Total Bilirubin 1.1 H (0.2-1) mg/dl Direct Bilirubin 0.4 H (0-0.2) mg/dl AST 97 H (15-37) U/L ALT 79 H (12-78) U/L Alkaline Phosphatase 186 H (45-117) U/L Troponin I < 0.015 (0-0.045) ng/ml Total Protein 8.8 H (6.4-8.2) gm/dl Albumin 3.3 L (3.4-5.0) gm/dl Globulin (2.5-4.0) gm/dl Albumin/Globulin Ratio (0.9-2) Triglycerides (0-150) mg/dl Lipase 1113 H (73-393) U/L Urine Color Urine Appearance (Clear) Urine pH (4.5-7.5) Ur Specific [place] (1.000-1.030) Urine Protein (Negative) Urine Glucose (UA) (Negative) Urine Ketones (Negative) Urine Blood (Negative) Urine Nitrite (Negative) Urine Bilirubin (Negative) Urine Urobilinogen (Negative) Ur Leukocyte Esterase (Negative) Urine WBC (Auto) (0-5) /hpf Urine RBC (Auto) (0-4) /hpf U Hyaline Cast (Auto) (0-5) /lpf U Epithel Cells (Auto) (0-5) /lpf Urine Bacteria (Auto) (Negative) Urine Yeast COVID-19 Eval Order Covid19 [address] [facility] SARS-CoV-2 (PCR) (Negative) 11/15/20 11/15/20 Range/Units 18:20 18:11 WBC 12.63 H (4.8-10.8) K/uL RBC 3.90 L (4.2-5.4) M/uL Hgb 15.5 (12.0-16.0) g/dL Hct 45.6 (37-47) % MCV 116.9 H (80-100) fL MCH 39.7 H (25-34) pg MCHC 34.0 (32-36) g/dL RDW Std Deviation 56.9 H (36.4-46.3) fL RDW Coeff of Mile 13.4 (11.5-14.5) % Plt Count 199 (130-400) K/uL MPV 9.0 (7.4-10.4) fL Immature Gran % (Auto) 0.4 % Neut % (Auto) 83.3 % Lymph % (Auto) 8.2 % [place] % (Auto) 7.9 % Eos % (Auto) 0.2 % Baso % (Auto) 0.0 % Neut # (Auto) 10.51 H (1.4-6.5) K/uL Lymph # (Auto) 1.04 L (1.2-3.4) K/uL [place] # (Auto) 1.00 H (0.11-0.59) K/uL Eos # (Auto) 0.03 (0-0.5) K/uL Baso # (Auto) 0.00 (0-0.2) K/uL Immature Gran # (Auto) 0.05 H (0.00-0.02) K/uL Hypersegmented Neuts 1+ Polychromasia 1+ Poikilocytosis Present Macrocytosis Present PT (9.0-12.0) Seconds INR (0.9-1.1) APTT (21.0-31.0) Seconds PTT Ratio Sodium (136-145) mmol/L Potassium (3.5-5.1) mmol/L Chloride (98-107) mmol/L Carbon Dioxide (21-32) mmol/L Anion Gap (3-11) BUN (7-18) mg/dl Creatinine (0.6-1.2) mg/dl Est Cr Clr Drug Dosing Est GFR ( Amer) ml/min Est GFR (Non-Af Amer) ml/min BUN/Creatinine Ratio (10-20) Glucose (70-99) mg/dl Calcium (8.5-10.1) mg/dl Total Bilirubin (0.2-1) mg/dl Direct Bilirubin (0-0.2) mg/dl AST (15-37) U/L ALT (12-78) U/L Alkaline Phosphatase (45-117) U/L Troponin I (0-0.045) ng/ml Total Protein (6.4-8.2) gm/dl Albumin (3.4-5.0) gm/dl Globulin (2.5-4.0) gm/dl Albumin/Globulin Ratio (0.9-2) Triglycerides (0-150) mg/dl Lipase (73-393) U/L Urine Color Dark Yellow Urine Appearance Cloudy A (Clear) Urine pH 6.0 (4.5-7.5) Ur Specific [place] 1.037 H (1.000-1.030) Urine Protein Trace H (Negative) Urine Glucose (UA) Negative (Negative) Urine Ketones Trace H (Negative) Urine Blood Negative (Negative) Urine Nitrite Negative (Negative) Urine Bilirubin 1+ H (Negative) Urine Urobilinogen Negative (Negative) Ur Leukocyte Esterase Negative (Negative) Urine WBC (Auto) 1-5 (0-5) /hpf Urine RBC (Auto) 0-4 (0-4) /hpf U Hyaline Cast (Auto) 5-10 H (0-5) /lpf U Epithel Cells (Auto) >30 H (0-5) /lpf Urine Bacteria (Auto) Negative (Negative) Urine Yeast Not Reportable COVID-19 Eval Order SARS-CoV-2 (PCR) (Negative) PG Care Time/CCT Total # of Minutes Spent Total Time Spent with Patient: Total time spent is greater than 50% in coordination of care (as documented) at patient's floor/unit and/or counseling patient: Coding Level of Care Code 86666 Subseq Hosp Care Lvl 2 Diagnoses Pancreatitis, acute K85.90 Pulmonary nodule R91.1 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
--- NOTE | 2020-11-16 17:35 | Electrocardiogram Report ---
Test Reason : Blood Pressure : / mmHG Vent. Rate : 072 BPM Atrial Rate : 072 BPM P-R Int : 186 ms QRS Dur : 078 ms QT Int : 410 ms P-R-T Axes : 034 -06 048 degrees QTc Int : 448 ms Normal sinus rhythm Anterolateral infarct , age undetermined Abnormal ECG When compared with ECG of 03-SEP-2020 11:33, Premature atrial complexes are no longer Present Anterolateral infarct is now Present Confirmed by Bhargav Conner ([id number]) on 11/16/2020 5:35:23 PM Referred By: REFERRED SELF Confirmed By:Osmany Conner
[2020-11-16] MEDS: GABAPENTIN 600 MG TAB PO SCH (20:48)
[2020-11-17] MEDS: LEVOTHYROXINE SODIUM 125 MCG TABLET PO SCH (05:59)
[2020-11-17 06:17] LABS: Basophils # (auto) 0.01 K/uL (0-0.2); Basophils % (auto) 0.2 %; Eosinophils # (auto) 0.05 K/uL (0-0.5); Eosinophils % (auto) 0.8 %; Hematocrit (blood only) 39.1 % (37-47); Hemoglobin 12.8 g/dL (12.0-16.0); Immature Granulocytes # (auto) 0.03 K/uL (0.00-0.02); Immature Granulocytes % (auto) 0.5 %; Lymphocytes # (auto) 0.76 K/uL (1.2-3.4); Lymphocytes % (auto) 12.1 %; Mean Corpuscular Hemoglobin 38.8 pg (25-34); Mean Corpuscular Hgb Conc 32.7 g/dL (32-36); Mean Corpuscular Volume 118.5 fL (80-100); Mean Platelet Volume 9.1 fL (7.4-10.4); Monocytes # (auto) 0.84 K/uL (0.11-0.59); Monocytes % (auto) 13.3 %; Neutrophils # (auto) 4.61 K/uL (1.4-6.5); Neutrophils % (auto) 73.1 %; Platelet Count 118 K/uL (130-400); RDW Coefficient of Variation 13.5 % (11.5-14.5); RDW Standard Deviation 58.3 fL (36.4-46.3)
[2020-11-17 06:45] LABS: Albumin Level 2.7 gm/dl (3.4-5.0); BUN Creatinine Ratio 35.6 (10-20); Bilirubin Direct 0.2 mg/dl (0-0.2); Calcium 8.6 mg/dl (8.5-10.1); Creatinine Clr Calc Pharmacy 103.8 ml/min; Est GFR (African American) 104.8 ml/min; Est GFR (Non-African American) 90.4 ml/min; Potassium 4.1 mmol/L (3.5-5.1)
[2020-11-17 06:47] LABS: Macrocytosis Present
[2020-11-17 06:49] LABS: Bilirubin,Total 0.7 mg/dl (0.2-1); Total Protein 6.9 gm/dl (6.4-8.2)
[2020-11-17] MEDS: PANTOprazole 40 MG TAB PO SCH (08:26)
[2020-11-17] MEDS: carvediloL 25 MG TAB PO SCH ×2 (08:26→20:00)
[2020-11-17] MEDS: ENOXAPARIN INJ 40 MG/0.4 ML SYR SQ SCH ×2 (08:26→20:01)
[2020-11-17] MEDS: LACTULOSE SYRUP 30 GM/45 ML UDP PO SCH (08:26)
[2020-11-17] MEDS: GABAPENTIN 300 MG CAP PO SCH ×2 (08:26→14:45)
[2020-11-17] MEDS: FERROUS SULFATE 325 MG TAB PO SCH ×2 (08:26→20:02)
[2020-11-17] MEDS: DULoxetine HCL 60 MG CAP PO SCH (08:26)
[2020-11-17] MEDS: LIDOCAINE 5% 1 PATCH TD SCH (08:27)
--- NOTE | 2020-11-17 09:07 | Gastroenterology Progress Note ---
Date of Service November 17, 2020 Assessment & Plan (1) Acute pancreatitis: Plan: 80 year old female admitted w. weakness, abd pain and back pain with elevated lipase. Denies ETOH, herbals or new medications. She has biliary dilation, s/p EUS in 2019 w/o evidence of retained stone or etiology at that time. thought secondary to ccy in addition to narcotic use. She is pain free, tolerating advancing diet and defers any further abdominal imaging. - Advance to low fat diet as tolerated - ABD imaging recommened either CTAP or MRI abd if she is agreeable - LR 125/150 mL/hr - Antiemetics PRN - Analgesia PRN - Monthly paracentesis w. Albumin 25% 25 G before and after, send cell count and culture, no more than 6L off - Continue daily Lasix20/Aldactone 50 - Should continue lactulose 15 mL BID - Continue daily carvedilol - Continue daily pantoprazole - Would recommend pulmonary consult for abnormal CXR (? bronchogenic malignancy) - Low NA diet, less than 2G - Reiterated to pt importance of limiting Tylenol to < 2 gm daily; may need pain management assistance to optimize her regimen and avoid hepatotoxins - Daily weights - No NSAIDs - No alcohol - Due for EGD/Colonoscopy later in 2020 Thank you for allowing us to participate in the care of this patient. Please call with any acute changes, questions or concerns. Please see addendum below with additional recommendation from my supervising physician. Admission and Anticipated Discharge Date Admission Date: November 15, 2020 Supervising Physician Co-Signing Physician Notes Attg add: I interviewed and examined pt, reviewed chart and labs. Pt without complaints, although she refused CT. Abd soft, NT. Recs as above, can consider further imaging as outpt if pt amenable. Subjective Pt was seen and evaluated, chart reviewed. No concerns. Wants to go home. Is pain free, tolerating diet. Refused further abd imaging last night. Rediscussed this AM and would consider additional testing if symptoms returned. Review of Systems Review of Systems: All systems reviewed & are unremarkable except as noted in HPI & below Physical Exam Constitutional: WD/WN, vitals as above Neck: trachea midline, no thyromegaly Respiratory: normal respiratory effort Cardiovascular: RRR, no murmur, no edema Gastrointestinal (Abdomen): normal bowel sounds, soft, nontender, no hepatosplenomegaly Skin: no rashes, warm and dry Results & Data ([facility]) Vital Signs (Past 12 Hours) Vital Signs Temp Pulse Resp BP Pulse Ox 11/17/20 07:34 36.6 C 60 18 138/78 91 11/16/20 22:15 36.8 C 69 18 134/78 92 (1) Acute pancreatitis Acute pancreatitis complication: unspecified Pancreatitis type: unspecified pancreatitis type Qualified Code(s): K85.90 - Acute pancreatitis without necrosis or infection, unspecified
[2020-11-17] MEDS ORDERED: SPIRONOLACTONE 25 MG TAB PO ONE (10:28)
[2020-11-17] MEDS ORDERED: FUROSEMIDE 20 MG TAB PO ONE (10:28)
--- NOTE | 2020-11-17 10:33 | Billing Data ---
Date of Service November 17, 2020 Coding Level of Care Code 69070 Initial Inpt Care Lvl 3
[2020-11-17] MEDS: PRAMIPEXOLE DIHYDROCHLO 0.25 MG TAB PO PRN (12:12)
--- NOTE | 2020-11-17 14:42 | Hospitalist Progress Note ---
Date of Service November 17, 2020 Assessment & Plan (1) Pancreatitis, acute: Plan: Mrs. Lara is a 80 yo woman with a PMHx of non-alcoholic liver disease who presented for 3 days of progressive weakness. - found to have suspected acute pancreatitis on admission given elevated lipase level at 1113 (nearly 3 x upper limit of normal) although has no abdominal pain so a bit atypical - presumptive etiology choledocholithiasis vs. cholestasis (biliary sludge), as liver enzymes, bilirubin and alk phos are elevated. INR value of 1.3. Cholestatic pattern of liver injury. - Other possible causes seem unlikely, as patient denies eoth use, calcium level is normal. Triglycerides are normal - Gallbladder US shows dilated CBD 2.6 cm, she is status post cholecystectomy, shows cirrhosis -Patient refuses MRI due to claustrophobia and also refuses CT of the abdomen/pelvis -She is feeling significantly better and advanced diet to low fat today, tolerating well Lipase back to normal, LFTs improved Nontender on examination Discontinue Zosyn as no evidence of infection -Appreciate GI consultation -Follow-up with GI as an outpatient for cirrhosis -dcd IVFs stable for discharge but pt hesitant, wants to stay one more day (2) Pulmonary nodule: Plan: - noted on CXR at R lung apex - unchanged from previous studies but appearance is concerning for possible malignancy - patient has been made aware of this nodule in the past and during this hospital stay by the admitting physician as well as myself - declines a desire for further imaging or biopsy - would not want treatment even if it were cancer (3) 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: Plan: - history of - follows with [facility] - INR mildly elevated at 1.2, suggestive of synthetic liver dysfunction - continue home dose lactulose, carvedilol - MELD score of 9 -restart Lasix and spironolactone today (4) Hyponatremia: Plan: - Na level 131 on admission and then improved to 134 with IVFs, now back to 131 - suspected secondary to diminished PO intake in the setting of acute pancreatitis, although now may be from volume overload -restart lasix and aldactone follow BMP in AM (5) Current tobacco use: Plan: - encourage cessation - nicoderm patch prn while inpatient (6) Chronic back pain: Plan: - likely secondary to degenerative arthritis of the lumbar spine, multiple compression fractures, and opioid induced hyperalgesia - continue home dose gabapentin and cymbalta - lidoderm patch ordered - tramadol, tylenol, diclofenac prn - avoid opioids (per PCP and Pain management notes) PT/OT consults placed-recommend home with home health (7) Abnormal Q waves on electrocardiogram: Plan: - noted on EKG in at least 2 contiguous leads (III, aVF, V4-V6) - suspect patient has suffered an NV at some point in the past - continue beta linnette - she is not on an KHALIDA/ARB, statin (likely due to liver disease), or a daily baby ASA (8) COPD (chronic obstructive pulmonary disease): Plan: - patient denies history of this condition, although it is on her problem list - 50 pack year smoking history makes it likely - wheezing and conversational dyspnea appreciated on exam upon admission but now improved; continue duo Neb ordered on admission - recommend tobacco cessation - consider formal PFTs as outpatient (9) Hypothyroidism: Plan: - continue home dose levothyroxine TSH normal in April 2020 (10) Hypertension: Plan: - continue home dose coreg and diuretics as above Plan: DVT ppx: Lovenox (BID dosing due to BMI) Code: DNR/DNI Dispo: Med/Surg. PT/OT recommend home with home health-plan to dc tomorrow if still doing well Admission and Anticipated Discharge Date Admission Date: November 15, 2020 Anticipated date of discharge: 11/18/20 Subjective Pt has no pain, no nausea, feeling well. No BM yet. Is hesitant to go home just yet as wants to make sure she still feels well for one more day. Is ambulating to BR and back and feels stronger. Review of Systems Review of Systems: All systems reviewed & are unremarkable except as noted in HPI & below Physical Exam Constitutional: WD/WN, vitals as above Eyes: + anicteric sclerae Neck: trachea midline, no thyromegaly Respiratory: normal respiratory effort, lungs clear to auscultation Cardiovascular: RRR, no murmur, no edema Chest (Breasts): Chest: normal inspection of chest Gastrointestinal (Abdomen): normal bowel sounds, soft, nontender, no hepatosplenomegaly Musculoskeletal: Extremities: extremities normal to inspection; no cyanosis and no clubbing Skin: no rashes, warm and dry Neurologic: moves all extremities and awake; no focal motor deficits Psychiatric: A+Ox3, euthymic affect Lymphatic: no lymphedema Results & Data Results & Data ([facility]) Vital Signs (Past 12 Hours) Vital Signs Temp Pulse Resp BP Pulse Ox 11/17/20 07:34 36.6 C 60 18 138/78 91 Laboratory Results 11/17/20 11/17/20 11/16/20 Range/Units 05:45 05:45 17:09 WBC 6.30 (4.8-10.8) K/uL RBC 3.30 L (4.2-5.4) M/uL Hgb 12.8 (12.0-16.0) g/dL Hct 39.1 (37-47) % MCV 118.5 H (80-100) fL MCH 38.8 H (25-34) pg MCHC 32.7 (32-36) g/dL RDW Std Deviation 58.3 H (36.4-46.3) fL RDW Coeff of Mile 13.5 (11.5-14.5) % Plt Count 118 L (130-400) K/uL MPV 9.1 (7.4-10.4) fL Immature Gran % (Auto) 0.5 % Neut % (Auto) 73.1 % Lymph % (Auto) 12.1 % [place] % (Auto) 13.3 % Eos % (Auto) 0.8 % Baso % (Auto) 0.2 % Neut # (Auto) 4.61 (1.4-6.5) K/uL Lymph # (Auto) 0.76 L (1.2-3.4) K/uL [place] # (Auto) 0.84 H (0.11-0.59) K/uL Eos # (Auto) 0.05 (0-0.5) K/uL Baso # (Auto) 0.01 (0-0.2) K/uL Immature Gran # (Auto) 0.03 H (0.00-0.02) K/uL Macrocytosis Present Sodium 131 L (136-145) mmol/L Potassium 4.1 (3.5-5.1) mmol/L Chloride 105 (98-107) mmol/L Carbon Dioxide 23 (21-32) mmol/L Anion Gap 3.0 (3-11) BUN 19 H (7-18) mg/dl Creatinine 0.54 L (0.6-1.2) mg/dl Est Cr Clr Drug Dosing 103.8 ml/min Est GFR ( Amer) 104.8 ml/min Est GFR (Non-Af Amer) 90.4 ml/min BUN/Creatinine Ratio 35.6 H (10-20) Glucose 91 (70-99) mg/dl POC Glucose 97 (70-99) mg/dl Calcium 8.6 (8.5-10.1) mg/dl Total Bilirubin 0.7 (0.2-1) mg/dl Direct Bilirubin 0.2 (0-0.2) mg/dl AST 35 (15-37) U/L ALT 44 (12-78) U/L Alkaline Phosphatase 130 H (45-117) U/L Total Protein 6.9 (6.4-8.2) gm/dl Albumin 2.7 L (3.4-5.0) gm/dl Lipase 89 (73-393) U/L PG Care Time/CCT Total # of Minutes Spent Total Time Spent with Patient: Total time spent is greater than 50% in coordination of care (as documented) at patient's floor/unit and/or counseling patient: Coding Level of Care Code 80269 Subseq Hosp Care Lvl 2 Diagnoses Pancreatitis, acute K85.90 Pulmonary nodule R91.1 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
[2020-11-17] MEDS: DICLOFENAC SOD 1% GEL 100 GM TUBE EXT PRN (14:49)
[2020-11-17] MEDS: traMADol HCL 50 MG TABLET PO PRN (16:48)
[2020-11-17] MEDS: GABAPENTIN 600 MG TAB PO SCH (20:01)
[2020-11-18] MEDS: LEVOTHYROXINE SODIUM 125 MCG TABLET PO SCH (05:30)
[2020-11-18 06:13] LABS: Albumin Level 2.7 gm/dl (3.4-5.0); BUN Creatinine Ratio 24.6 (10-20); Calcium 8.7 mg/dl (8.5-10.1); Creatinine Clr Calc Pharmacy 100.1 ml/min; Est GFR (African American) 103.5 ml/min; Est GFR (Non-African American) 89.3 ml/min; Potassium 4.3 mmol/L (3.5-5.1)
[2020-11-18 06:16] LABS: Albumin Globulin Ratio 0.6 (0.9-2); Bilirubin,Total 0.7 mg/dl (0.2-1); Globulin 4.2 gm/dl (2.5-4.0); Total Protein 6.9 gm/dl (6.4-8.2)
[2020-11-18] MEDS: PRAMIPEXOLE DIHYDROCHLO 0.25 MG TAB PO PRN (06:29)
[2020-11-18] MEDS: FERROUS SULFATE 325 MG TAB PO SCH (08:32)
[2020-11-18] MEDS: carvediloL 25 MG TAB PO SCH (08:32)
[2020-11-18] MEDS: DULoxetine HCL 60 MG CAP PO SCH (08:32)
[2020-11-18] MEDS: FUROSEMIDE 20 MG TAB PO SCH (08:33)
[2020-11-18] MEDS: PANTOprazole 40 MG TAB PO SCH (08:33)
[2020-11-18] MEDS: GABAPENTIN 300 MG CAP PO SCH (08:33)
[2020-11-18] MEDS: ENOXAPARIN INJ 40 MG/0.4 ML SYR SQ SCH (08:34)
[2020-11-18] MEDS: LACTULOSE SYRUP 30 GM/45 ML UDP PO SCH (08:34)
[2020-11-18] MEDS: SPIRONOLACTONE 25 MG TAB PO SCH (09:03)
[2020-11-18] MEDS: LIDOCAINE 5% 1 PATCH TD SCH (09:03)
[2020-11-18] MEDS: traMADol HCL 50 MG TABLET PO PRN (10:18)
--- NOTE | 2020-11-18 11:52 | Discharge Summary ---
Date of Service November 18, 2020 Admission HPI Per Admitting Provider Mrs. Lara is a 80 yo woman with a PMHx of chronic back pain and non-alcoholic liver cirrhosis with associated varices who was brought in for evaluation by her son for progressive, generalized weakness over the past 3-4 days. While she has not had any fevers/chills, cough, congestion, dark or bloody stools, nausea/vomiting or diarrhea, her son notes that she has not had anything to eat in the preceding days - Mrs. Lara attributes this to lack of appetite. Due to her chronic liver disease, she gets occasional abdominal ultrasounds and paracenteses (if necessary). She had abdominal US done on 11/12/20, which showed no evidence of ascites. Thus a paracentesis was not performed. Her chronic back pain is due to degenerative arthritis of the lumbar spine, multiple compression fractures, and opioid induced hyperalgesia. She previously was on long-term opioids in the past for her back pain - her PCP discontinued them at the beginning of this year due to concerns of overuse (and subsequent sedation/respiratory depression). Her son states that ever since being off the opioids, she has been staying in bed for many hours of the day, and not participating in usual day to day activities. She has been seen once by [facility] - she was started on Gabapentin and is on Duloxetine for chronic neuropathic pain. Her PCP did give her a script for a muscle relaxer recently and Mrs. Lara consumed the entire script in 5-6 days, although it was supposed to last her for over 20. She has never seen a back surgeon. She has a known R upper lung nodule - she has been informed of it in the past. She has never had it biopsied. She states that she would not want to know if it were cancer, nor would she want to undergo treatment for it. Her son requests an evaluation for possible rehab placement. She has not been vaccinated against COVID 19. Past surg hx: cholecystectomy Social Hx: currently lives alone. Current everyday smoker - 50 pack year history. No eoth. In the ED, she was afebrile, with normal vital signs. WBC was elevated to 12 with neutrophil predominance. Her Hgb and platelet counts were normal. Her INR was elevated to 1.2. Her Na was low at 131. Electrolytes were otherwise WNL. Cr was 0.99, BUN elevated to 37. T bili up to 1.1, direct bili at 0.4. AST 97, ALT 79, Alk phos 186. Lipase elevated to 1113. Trop undetectable. Total protein elevated to 8.8. Albumin low. UA not concerning for acute infection. EKG showing NSR with concern for previous inferior and anterolateral infarct. CXR showing cardiomegaly with mild pulmonary vascular congestion. An irregular nodule at the R lung apex was also noted - this has been visualized on previous imaging studies and radiologist notes an appearance concerning for cancer. She was given 40mg IV protonix, 20mg IV famotidine, and 1 liter of NSS. Principal Diagnosis Generalized weakness, Acute pancreatitis Discharge Exam Constitutional WD/WN, vitals as above Eyes + anicteric sclerae Neck trachea midline, no thyromegaly Respiratory normal respiratory effort, lungs clear to auscultation Cardiovascular RRR, no murmur, no edema Chest (Breasts) Chest: normal inspection of chest Gastrointestinal (Abdomen) normal bowel sounds, soft, nontender, no hepatosplenomegaly Musculoskeletal Extremities: extremities normal to inspection; no cyanosis and no clubbing Skin no rashes, warm and dry Neurologic moves all extremities and awake; no focal motor deficits Psychiatric A+Ox3, euthymic affect Lymphatic no lymphedema Discharge Data Allergies Allergy/AdvReac Type Severity Reaction Status Date / Time aspirin AdvReac Intermediate advised Verified 11/15/20 18:06 not to take d/t cirrhosis and gi bleed cortisone AdvReac Intermediate "WEIRD Verified 11/15/20 18:06 FEELING NSAIDS (Non-Steroidal AdvReac Intermediate advised Verified 11/15/20 18:06 Anti-Inflamma not to take d/t cirrhosis and gi bleed Consultations 11/15/20 20:13 ED Decision to Admit Stat 11/15/20 22:31 Consult Gastroenterology Routine Ordered Studies 11/15/20 20:43 US gallbladder Routine Hospital Course (1) Pancreatitis, acute: Mrs. Lara is a 80 yo woman with a PMHx of non-alcoholic liver disease who presented for 3 days of progressive weakness. - found to have suspected acute pancreatitis on admission given elevated lipase level at 1113 (nearly 3 x upper limit of normal) although has no abdominal pain so a bit atypical - presumptive etiology choledocholithiasis vs. cholestasis (biliary sludge), as liver enzymes, bilirubin and alk phos are elevated. INR value of 1.3. Cholestatic pattern of liver injury. - Other possible causes seem unlikely, as patient denies eoth use, calcium level is normal. Triglycerides are normal - Gallbladder US shows dilated CBD 2.6 cm, she is status post cholecystectomy, shows cirrhosis -Patient refuses MRI due to claustrophobia and also refuses CT of the abdomen/pelvis for further evaluation -She is feeling significantly better and tolerating low fat, no pain or nausea Lipase back to normal, LFTs improved Nontender on examination -Appreciate GI consultation -Follow-up with GI as an outpatient for cirrhosis-due for EGD later in 2020 stable for discharge (2) Pulmonary nodule: - noted on CXR at R lung apex - unchanged from previous studies but appearance is concerning for possible malignancy - patient has been made aware of this nodule in the past and during this hospital stay by the admitting physician as well as myself - declines a desire for further imaging or biopsy - would not want treatment even if it were cancer (3) 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: - history of - [facility] - INR mildly elevated at 1.2, suggestive of synthetic liver dysfunction - continue lactulose but increase to bid as per GI, continue carvedilol - MELD score of 9 -cont Lasix and spironolactone (4) Hyponatremia: - Na level 131 on admission and then improved to 134 with IVFs, now back t o 131 and stable - suspected secondary to diminished PO intake in the setting of acute pancreatitis, although now may be from volume overload -restarted lasix and aldactone follow BMP as outpt in 1 week with PCP (5) Current tobacco use: - encourage cessation - nicoderm patch prn while inpatient (6) Chronic back pain: - likely secondary to degenerative arthritis of the lumbar spine, multiple compression fractures, and opioid induced hyperalgesia - continue home dose gabapentin and cymbalta - lidoderm patch ordered - tramadol, tylenol, diclofenac prn - avoid opioids (per PCP and Pain management notes) PT/OT consults placed-recommend home with home health (7) Abnormal Q waves on electrocardiogram: - noted on EKG in at least 2 contiguous leads (III, aVF, V4-V6) - suspect patient has suffered an GA at some point in the past - continue beta linnette - she is not on an KHALIDA/ARB, statin (likely due to liver disease), or a daily baby ASA (8) COPD (chronic obstructive pulmonary disease): - patient denies history of this condition, although it is on her problem list - 50 pack year smoking history makes it likely - wheezing and conversational dyspnea appreciated on exam upon admission but now improved; continue duo Neb ordered on admission - recommend tobacco cessation - consider formal PFTs as outpatient (9) Hypothyroidism: - continue home dose levothyroxine TSH normal in April 2020 (10) Hypertension: - continue home dose coreg and diuretics as above DVT ppx: Lovenox (BID dosing due to BMI) Code: DNR/DNI Dispo: dc to home with home health, discussed care with daughter on phone Total Time Total Time Spent Total Time Spent (In Minutes): 35 min Discharge Plan Discharge Items Patient Disposition: Home - Home Health Services Reason For Visit: WEAKNESS Discharge Diagnosis: Generalized weakness, mild acute pancreatitis Condition on Discharge: Good Activity: Resume your previous activity Bathing: No limitations Exercise/Sports: Gradually increase as tolerated Exercise Comment: with home physical and occupational therapy Non-emergency contact: Primary Care Provider and Family Medicine Chair Call non-emergency contact if: you have any medication questions and your symptoms worsen Follow-up/Referrals: Courtney Jules, [Primary Care Provider] - (Follow up within 1-2 weeks) Diet: Carb Consistent or DM2 and Low Sodium (2gm) Addtl Attending Provider Instructions: You were admitted with weakness and found to have a mild case of pancreatitis. Your blood work improved and you had no further abdominal pain or nausea at the time of discharge. You should continue to follow up with your GI doctor for your liver cirrhosis. Your sodium levels are mildly low. Please have Dr. Jules keep an eye on this at your hospital follow up appointment with repeat labs. It is important for you to continue home physical and occupational therapy as planned to help to increase your strength. The GI doctor wanted you to increase your lactulose dose to twice a day. It is important for you to be moving your bowels at least 2-3 times per day to prevent a build up of ammonia toxin from your liver disease. Pending Studies at Discharge: No Stand-Alone Forms: [employer], Smoking Cessation Medications and DC Order Prescriptions: Continued ferrous sulfate [Iron (ferrous sulfate)] 325 mg (65 mg iron) tablet 325 mg PO BID Qty: 180 RF: 1 levothyroxine [Synthroid] 125 mcg tablet 125 mcg PO QAM Qty: 90 RF: 1 (DME) blood-glucose meter [OneTouch UltraMini] Kit See Rx Instructions .ROUTE .MEDSUPPLY Qty: 1 RF: 0 (DME) blood-glucose meter [OneTouch Ultra2 Meter] Misc See Rx Instructions .ROUTE .MEDSUPPLY Qty: 1 RF: 0 ondansetron 4 mg tablet,disintegrating 4 - 8 mg PO Q8H PRN (Reason: Nausea) Qty: 270 RF: 0 carvedilol [Coreg] 25 mg tablet 25 mg PO BID Qty: 180 RF: 1 pantoprazole [Protonix] 40 mg tablet,delayed release (DR/EC) 40 mg PO QAM Qty: 90 RF: 1 pramipexole 0.25 mg tablet 0.25 mg PO QPM PRN (Reason: restless leg(s)) Qty: 90 RF: 1 gabapentin 300 mg capsule See Rx Instructions .ROUTE .COMPLEX Qty: 120 RF: 1 diclofenac sodium 1 % gel 2 g topical QID PRN (Reason: Pain) Qty: 100 RF: 2 cholecalciferol (vitamin D3) 5,000 unit tablet 5,000 unit PO QAM Qty: 30 RF: 0 triamcinolone acetonide 0.5 % cream 1 applic topical BID PRN (Reason: skin irritation) Qty: 60 RF: 1 furosemide [Lasix] 20 mg tablet 20 mg PO QAM Qty: 90 RF: 1 meclizine [Dramamine Less Drowsy] 25 mg tablet 25 mg PO TID PRN (Reason: Dizziness) Qty: 30 RF: 5 albuterol sulfate 90 mcg/actuation HFA aerosol inhaler 1 inh INHALATION QID PRN (Reason: SHORT OF BREATH) Qty: 8.5 RF: 1 cyanocobalamin (vitamin B-12) [Vitamin B-12] 1,000 mcg Tablet 1,000 mcg PO QAM RF: 0 cyclobenzaprine 5 mg tablet 5 mg PO UD PRN (Reason: Muscle Spasm) RF: 0 duloxetine 30 mg capsule,delayed release(DR/EC) 60 mg PO DAILY RF: 0 spironolactone [Aldactone] 25 mg tablet 50 mg PO QAM RF: 0 nystatin 100,000 unit/gram powder 1 appln TOP BID PRN (Reason: fungal) RF: 0 Changed lactulose 10 gram/15 mL (15 mL) solution 30 g PO BID 30 Days Qty: 2700 RF: 0 Discharge Orders: Discharge Order (Routine); Ordered 11/18/20 Ordered By: Lida Rueda Admission Data Admit Date/Time: 11/15/20 20:06 Attending Provider: Lida Rueda Admit Provider: Nicolasa Becerra Primary Care Provider: Courtney Jules Other Providers: Richi Li ; Dewayne Menard ; Usman Bear [facility] Coding Level of Care Code D/C DAY MANAGEMENT >30 MINS Diagnoses Pancreatitis, acute K85.90 Pulmonary nodule R91.1 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 The encounter with the patient was in whole, or in part, for the following medical condition, which is the primary reason for home health care (list medical condition): I certify that, based on my findings, the following services are medically necessary home health services: My clinical findings support the need for the above services because: OT Assess ADL Status and Restore Function w ADLs PT Assessment for Endurance / Balance / Strength Skilled Nsg Assessment Further, I certify that my clinical findings support that this patient is homebound (i.e. absences from home require considerable and taxing effort and are for medical reasons or [facility] or infrequently or of short duration when for other reasons) because: Certification for Home Health Services: Based on the above findings, I certify that this patient is confined to the home and needs intermittent nursing home care, physical therapy and/or speech therapy or continues to need occupational therapy. The patient is under my care, and I have initiated the establishment of the plan of care. This patient will be followed by a physician who will periodically review the plan of care.
== END 2020-11-18 13:59 | disposition home health service (06) | DRG 438 ==
LOC: ED 17:46 → 3W 20:06 → SUATTDRO 20:06 → 3W 22:05
DX: K75.81 Nonalcoholic steatohepatitis (NASH); T40.2X5S Adverse effect of other opioids, sequela; R91.1 Solitary pulmonary nodule; F41.8 Other specified anxiety disorders; Z88.6 Allergy status to analgesic agent; E87.1 Hypo-osmolality and hyponatremia; K85.10 Biliary acute pancreatitis without necrosis or infection; E03.9 Hypothyroidism, unspecified; E11.9 Type 2 diabetes mellitus without complications; J44.9 Chronic obstructive pulmonary disease, unspecified; M47.816 Spondylosis without myelopathy or radiculopathy, lumbar region; Z79.890 Hormone replacement therapy; K83.8 Other specified diseases of biliary tract; K80.50 Calculus of bile duct without cholangitis or cholecystitis without obstruction; G25.81 Restless legs syndrome; K74.69 Other cirrhosis of liver; Z68.41 Body mass index [BMI] 40.0-44.9, adult; Z66 Do not resuscitate; I10 Essential (primary) hypertension; Z83.3 Family history of diabetes mellitus; F40.240 Claustrophobia; I25.2 Old myocardial infarction; D72.829 Elevated white blood cell count, unspecified; Z79.899 Other long term (current) drug therapy; R20.8 Other disturbances of skin sensation; M48.50XS Collapsed vertebra, not elsewhere classified, site unspecified, sequela of fracture; F17.210 Nicotine dependence, cigarettes, uncomplicated; M79.18 Myalgia, other site; Z51.81 Encounter for therapeutic drug level monitoring; K83.1 Obstruction of bile duct; E87.70 Fluid overload, unspecified; Z88.8 Allergy status to other drugs, medicaments and biological substances; E66.9 Obesity, unspecified

== ENCOUNTER 2020-11-20 22:23 | Inpatient (IN) ==
[2020-11-20] MEDS ORDERED: methylPREDNISolone 125 MG/2 ML VIAL IV STA (22:46)
[2020-11-20] MEDS ORDERED: ALBUT/IPRATROP 3MG/0.5MG NEB 3 ML VIAL NEB ONE (22:47)
[2020-11-20 23:34] LABS: Basophils # (auto) 0.02 K/uL (0-0.2); Basophils % (auto) 0.2 %; Eosinophils # (auto) 0.09 K/uL (0-0.5); Hematocrit (blood only) 42.5 % (37-47); Hemoglobin 14.5 g/dL (12.0-16.0); Immature Granulocytes # (auto) 0.03 K/uL (0.00-0.02); Immature Granulocytes % (auto) 0.3 %; Lymphocytes % (auto) 13.8 %; Mean Corpuscular Hemoglobin 39.3 pg (25-34); Mean Corpuscular Hgb Conc 34.1 g/dL (32-36); Mean Corpuscular Volume 115.2 fL (80-100); Mean Platelet Volume 9.5 fL (7.4-10.4); Monocytes # (auto) 1.07 K/uL (0.11-0.59); Monocytes % (auto) 11.4 %; Neutrophils # (auto) 6.89 K/uL (1.4-6.5); Neutrophils % (auto) 73.3 %; Platelet Count 168 K/uL (130-400); RDW Coefficient of Variation 13.1 % (11.5-14.5); RDW Standard Deviation 55.1 fL (36.4-46.3); Red Blood Count 3.69 M/uL (4.2-5.4)
[2020-11-20 23:40] LABS: Base Excess VBG 7.2 mEq/L; HCO3 VBG 35 mmol/L; Oxygen Saturation VBG 60.6 %; PCO2 VBG 64 mmHg (38-50); PO2 VBG 35 mmHg; pH VBG 7.36 (7.36-7.41)
[2020-11-20] MEDS ORDERED: FUROSEMIDE 40 MG/4 ML VIAL IV STA (23:58)
--- NOTE | 2020-11-20 23:58 | Emergency Department Note ---
Impression & Plan Hypoxia, Hyponatremia, Anemia ED Provider Note NAME: RACHEL ALVARADO AGE: 80 SEX: F : 1940 ARRIVES VIA: Ambulance INFORMANT: Patient, EMS ED PROVIDER(S): Fredy De Oliveira MD CHIEF COMPLAINT: Shortness of breath HPI: Records review reveals that this patient was just in the emergency department on 11/15 for acute pancreatitis. This is a 80-year-old female who presents from home complaining of shortness of breath that has been ongoing for the past several days. The patient reports anytime she exerts herself she becomes extremely short of breath. She denies any chest pain with the shortness of breath. She reports rest makes the shortness of breath somewhat better. EMS reports that the patient was satting in the 80s upon arrival and she was on room air. The patient reports she is not normally on oxygen at home. ROS: See above HPI for pertinent positives & negatives. A total of 10 systems reviewed and were otherwise negative. PAST MEDICAL HISTORY: See Below PAST SURGICAL HISTORY: See Below FAMILY HISTORY: See Below SOCIAL HISTORY: See Below HOME MEDICATIONS: See Below ALLERGIES: See Below VITALS: See Below PHYSICAL EXAMINATION: VITAL SIGNS - Vital signs and nursing notes were reviewed. GENERAL - 80-year-old female appearing stated age who is in no acute distress. Communicates well with provider and answers questions appropriately. SKIN - Without rashes. HEAD - NC/AT. EYES - PERRL with EOMI bilaterally. Sclera anicteric. Palpebral conjunctiva pink and moist with no injection noted. EARS - No deformities of external structures noted on gross examination bilaterally. NOSE - Midline and without cyanosis. No epistaxis or purulent drainage noted. Septum midline without deviation or septal hematoma noted. MOUTH/OROPHARYNX - Without perioral cyanosis. Buccal mucosa pink and moist and without leukoplakia. Tongue midline with equal elevation of palate bilaterally. No tonsillar hypertrophy, erythema, or exudates noted. NECK - Neck with FROM. Supple to palpation. LUNGS - Chest wall symmetric without accessory muscle use, intercostals retractions, or central cyanosis. Normal vesicular breath sounds CTA B/L. No wheezes, rales, or rhonchi appreciated. CARDIAC - RRR with S1/S2. No murmur, rubs, or gallops appreciated. ABDOMEN - Abdominal contour without pulsations or visible masses. BS normoactive all four quadrants. No tenderness, palpable masses, hepatosplenomegaly, or ascites noted. EXTREMITIES - No clubbing or peripheral cyanosis. No pretibial edema present. +3/5 radial, posterior tibial, and dorsalis pedis pulses palpated throughout. +5/5 strength noted in UE/LE bilaterally. NEUROLOGIC - Cranial nerves II through XII grossly intact. Sensory intact to light touch throughout. Patellar reflexes +2/4. PSYCH - A&Ox3 and cooperates fully with examiner. Pt is very pleasant and interacts well with examiner. MEDICAL DECISION MAKING: Patient was seen and evaluated as above in room. Review was performed of nursing notes and vital signs. I did review pertinent previous visits and patient history. After obtaining a thorough history and physical examination the above work up was performed. This 80-year-old female who presents emergency department complaining of shortness of breath. The patient is requiring increased oxygen. She was started on Solu-Medrol here and given albuterol breathing treatment. Chest x- ray is concerning for a pulmonary nodule does not show any evidence of congestive heart failure. She does not have an elevation in her troponin or her white blood cell count. Because the patient does continue to require oxygen she was discussed with the hospitalist service who did agree to admit the patient. While in the department, I personally reevaluated the patient several times and each time the patient was found to be resting comfortably. The patient was educated upon management, educated upon todays findings/results, educated upon importance of follow up from today's visit, educated upon symptoms in which to return, had questions answered prior to discharge, verbalized understanding, and was discharged home in good condition. An order was placed for continuous cardiac monitoring. The monitor shows a rate of 70 with Normal Sinus rhythm. The patient was evaluated during a period of high volume and high acuity during the global COVID-19 pandemic, and that diagnosis was suspected/considered upon their initial presentation. Their evaluation, treatment and testing was consistent with current guidelines for patients who present with complaints or symptoms that may be related to COVID-19. Patient was seen while provider was wearing PPE. Triage Nursing notes reviewed. Prior medical records reviewed Vital Signs: reviewed and remarkable for no significant abnormalities Differential diagnosis: Reactive airway disease, pneumonia, pneumothorax, COPD, CHF, infections, car diac ischemia, pulmonary embolism, musculoskeletal, gastrointestinal, as well as other pathologies. 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 Obesity Opioid-induced hyperalgesia Pulmonary nodule Restless legs syndrome Surgical History History of cholecystectomy History of colonoscopy History of esophagogastroduodenoscopy (EGD) History of hip surgery LEFT History of left cataract extraction History of open reduction and internal fixation (ORIF) procedure right lower extremity History of right cataract surgery History of tonsillectomy History of tooth extraction History of total abdominal hysterectomy and bilateral salpingo-oophorectomy Secondary to fibroid History of tubal ligation Family History Mother Diabetes Stroke Daughter Diabetes Father Pneumonia Other No family history of adverse response to anesthesia Denies family history of Ovarian cancer Prostate cancer Myocardial infarction Breast cancer Colorectal cancer Social History Smoking Status: Current every day smoker Tobacco Type: Cigarettes packs per day: 0.5; Cigarettes Per Day: 5; Second Hand Exposure: No; Do You Dip or Chew Tobacco: No; Tobacco Cessation Education Requested by Patient: No Hx Alcohol Use: No Hx Substance Use: No Preferred Language: Bermudian Communication Ability: Effective Visual Impairment: No Limitations Hearing Ability: Normal Bingo Checker Required: No Beliefs That Will Affect Care: None marital status: / Current Living Situation: Alone current occupational status: retired How many Children do You have: 2 Other Information That Helps Us Care for You: No Feels Safe at Home: Yes Safety Concerns: Feels Safe At This Time Childhood Exposure to Second-Hand Smoke: Yes caffeine: Yes during the past year weight has: increased > 10 lbs Dental Care, Regularly: No Physical Activity Frequency: Does not Exercise Seatbelt Use: always Assistive Devices: Oxygen - Continuous Allergies Allergies Allergy/AdvReac Type Severity Reaction Status Date / Time aspirin AdvReac Intermediate advised Verified 11/20/20 23:57 not to take d/t cirrhosis and gi bleed cortisone AdvReac Intermediate "WEIRD Verified 11/20/20 23:57 FEELING NSAIDS (Non-Steroidal AdvReac Intermediate advised Verified 11/20/20 23:57 Anti-Inflamma not to take d/t cirrhosis and gi bleed Home Meds Home Medications Medication Instructions Recorded Confirmed cholecalciferol (vitamin D3) 125 5,000 unit PO QAM #30 tab 08/17/18 11/21/20 mcg (5,000 unit) tablet duloxetine 30 mg capsule,delayed 60 mg PO DAILY 11/15/20 11/21/20 release spironolactone 25 mg tablet 50 mg PO QAM 11/15/20 11/21/20 (Aldactone) Previous Rx's Medication Instructions Recorded ferrous sulfate 325 mg (65 mg 325 mg PO BID #180 tab 01/09/20 iron) tablet (Iron (ferrous sulfate)) levothyroxine 125 mcg tablet 125 mcg PO QAM #90 tab 02/25/20 (Synthroid) blood-glucose meter (OneTouch #1 ea 04/01/20 Ultra2 Meter) blood-glucose meter (OneTouch #1 ea 04/01/20 UltraMini) ondansetron 4 mg disintegrating 4 - 8 mg PO Q8H PRN #270 tab 07/02/20 tablet carvedilol 25 mg tablet (Coreg) 25 mg PO BID #180 tab 07/13/20 pantoprazole 40 mg tablet,delayed 40 mg PO QAM #90 tab 07/13/20 release (Protonix) furosemide 20 mg tablet (Lasix) 20 mg PO QAM #90 tab 09/11/20 meclizine 25 mg tablet (Dramamine 25 mg PO TID PRN #30 tab 09/11/20 Less Drowsy) pramipexole 0.25 mg tablet 0.25 mg PO QPM PRN #90 tab 10/19/20 gabapentin 300 mg capsule See Rx Instructions .ROUTE 10/27/20 .COMPLEX #120 cap diclofenac sodium 1 % topical gel 2 g TOPICAL QID PRN #100 g 10/30/20 albuterol sulfate 90 mcg/actuation 1 inh INHALATION QID PRN #8.5 g 11/05/20 aerosol inhaler lactulose 10 gram/15 mL (15 mL) 30 g PO BID 30 Days #2700 ml 11/18/20 oral solution Results & Data (ED) Vital Signs Vital Signs - 24 hr 11/20/20 22:12 11/20/20 22:31 11/20/20 22:32 Temperature 37.1 C Temperature Source Oral Pulse Rate 85 74 Pulse Rate [Right Apical] Pulse Rate from SpO2 Sensor 73 Respiratory Rate 30 H 23 Respiratory Effort / Characteristics Labored Respiratory Depth Retractive Respiratory Pattern Blood Pressure 183/102 H Blood Pressure Mean 129 Pulse Oximetry 98 98 Oxygen Delivery Method Nasal Cannula Room Air Oxygen Flow Rate 4 83 Fraction of Inspired Oxygen Sepsis Recent Fever Within 48 Hours No Sepsis New/Unexplained Change in Mental Status No Sepsis Action Taken by Nursing No Action Required 11/20/20 23:02 11/20/20 23:05 Temperature Temperature Source Pulse Rate 75 Pulse Rate [Right Apical] 83 Pulse Rate from SpO2 Sensor Respiratory Rate 26 H 26 H Respiratory Effort / Characteristics Spontaneous Accessory Muscle Use Spontaneous Accessory Muscle Use Respiratory Depth Shallow Respiratory Pattern Tachypnea Blood Pressure Blood Pressure Mean Pulse Oximetry 100 100 Oxygen Delivery Method BiPAP Oxygen Flow Rate Fraction of Inspired Oxygen 40 40 Sepsis Recent Fever Within 48 Hours Sepsis New/Unexplained Change in Mental Status Sepsis Action Taken by Custodial Medications Current Medication List: was personally reviewed by me Laboratory Data Attestation: I reviewed the patient's lab results. Result diagrams: 11/24/20 03:52 11/27/20 07:36 Lab Results 11/20/20 11/20/20 11/20/20 Range/Units 22:56 22:56 23:18 WBC 9.40 (4.8-10.8) K/uL RBC 3.69 L (4.2-5.4) M/uL Hgb 14.5 (12.0-16.0) g/dL Hct 42.5 (37-47) % MCV 115.2 H (80-100) fL MCH 39.3 H (25-34) pg MCHC 34.1 (32-36) g/dL RDW Std Deviation 55.1 H (36.4-46.3) fL RDW Coeff of Mile 13.1 (11.5-14.5) % Plt Count 168 (130-400) K/uL MPV 9.5 (7.4-10.4) fL Immature Gran % (Auto) 0.3 % Neut % (Auto) 73.3 % Lymph % (Auto) 13.8 % [place] % (Auto) 11.4 % Eos % (Auto) 1.0 % Baso % (Auto) 0.2 % Neut # (Auto) 6.89 H (1.4-6.5) K/uL Lymph # (Auto) 1.30 (1.2-3.4) K/uL [place] # (Auto) 1.07 H (0.11-0.59) K/uL Eos # (Auto) 0.09 (0-0.5) K/uL Baso # (Auto) 0.02 (0-0.2) K/uL Immature Gran # (Auto) 0.03 H (0.00-0.02) K/uL Hypersegmented Neuts 1+ Polychromasia 1+ Macrocytosis Present APTT (21.0-31.0) Seconds PTT Ratio VBG pH (7.36-7.41) VBG pCO2 (38-50) mmHg VBG pO2 mmHg VBG HCO3 mmol/L VBG O2 Saturation % VBG Base Excess mEq/L Sodium (136-145) mmol/L Potassium (3.5-5.1) mmol/L Chloride (98-107) mmol/L Carbon Dioxide (21-32) mmol/L Anion Gap (3-11) BUN (7-18) mg/dl Creatinine (0.6-1.2) mg/dl Est Cr Clr Drug Dosing Est GFR ( Amer) ml/min Est GFR (Non-Af Amer) ml/min BUN/Creatinine Ratio (10-20) Glucose (70-99) mg/dl Lactate (0.4-2.0) mmol/L Calcium (8.5-10.1) mg/dl Total Bilirubin (0.2-1) mg/dl AST (15-37) U/L ALT (12-78) U/L Alkaline Phosphatase (45-117) U/L Total Creatine Kinase (26-192) U/L CK-MB (CK-2) (0.5-3.6) ng/ml CK/CKMB % Calc Troponin I (0-0.045) ng/ml NT-Pro-B Natriuret Pep (0-1800) pg/ml Total Protein (6.4-8.2) gm/dl Albumin (3.4-5.0) gm/dl Globulin (2.5-4.0) gm/dl Albumin/Globulin Ratio (0.9-2) Lipase (73-393) U/L COVID-19 Eval Order Covid19 at [facility] SARS-CoV-2 (PCR) NEGATIVE (Negative) Bld Cult Staph aureus PCR (Negative) Blood Culture MRSA PCR (Negative) 11/20/20 11/20/20 11/20/20 Range/Units 23:18 23:18 23:18 WBC (4.8-10.8) K/uL RBC (4.2-5.4) M/uL Hgb (12.0-16.0) g/dL Hct (37-47) % MCV (80-100) fL MCH (25-34) pg MCHC (32-36) g/dL RDW Std Deviation (36.4-46.3) fL RDW Coeff of Mile (11.5-14.5) % Plt Count (130-400) K/uL MPV (7.4-10.4) fL Immature Gran % (Auto) % Neut % (Auto) % Lymph % (Auto) % [place] % (Auto) % Eos % (Auto) % Baso % (Auto) % Neut # (Auto) (1.4-6.5) K/uL Lymph # (Auto) (1.2-3.4) K/uL [place] # (Auto) (0.11-0.59) K/uL Eos # (Auto) (0-0.5) K/uL Baso # (Auto) (0-0.2) K/uL Immature Gran # (Auto) (0.00-0.02) K/uL Hypersegmented Neuts Polychromasia Macrocytosis APTT 27.0 (21.0-31.0) Seconds PTT Ratio 1.0 VBG pH 7.36 (7.36-7.41) VBG pCO2 64 H (38-50) mmHg VBG pO2 35 mmHg VBG HCO3 35 mmol/L VBG O2 Saturation 60.6 % VBG Base Excess 7.2 mEq/L Sodium 128 L (136-145) mmol/L Potassium (3.5-5.1) mmol/L Chloride 90 L (98-107) mmol/L Carbon Dioxide 35 H (21-32) mmol/L Anion Gap 3.0 (3-11) BUN 10 (7-18) mg/dl Creatinine 0.74 (0.6-1.2) mg/dl Est Cr Clr Drug Dosing Not Reportable Est GFR ( Amer) 89.9 ml/min Est GFR (Non-Af Amer) 77.6 ml/min BUN/Creatinine Ratio 13.7 (10-20) Glucose 102 H (70-99) mg/dl Lactate (0.4-2.0) mmol/L Calcium 9.2 (8.5-10.1) mg/dl Total Bilirubin 1.2 H (0.2-1) mg/dl AST (15-37) U/L ALT 42 (12-78) U/L Alkaline Phosphatase 142 H (45-117) U/L Total Creatine Kinase (26-192) U/L CK-MB (CK-2) 1.6 (0.5-3.6) ng/ml CK/CKMB % Calc TNP Troponin I < 0.015 (0-0.045) ng/ml NT-Pro-B Natriuret Pep 598 (0-1800) pg/ml Total Protein 8.0 (6.4-8.2) gm/dl Albumin 3.1 L (3.4-5.0) gm/dl Globulin 4.9 H (2.5-4.0) gm/dl Albumin/Globulin Ratio 0.6 L (0.9-2) Lipase 168 (73-393) U/L COVID-19 Eval Order SARS-CoV-2 (PCR) (Negative) Bld Cult Staph aureus PCR (Negative) Blood Culture MRSA PCR (Negative) 11/20/20 11/20/20 Range/Units 23:18 23:19 WBC (4.8-10.8) K/uL RBC (4.2-5.4) M/uL Hgb (12.0-16.0) g/dL Hct (37-47) % MCV (80-100) fL MCH (25-34) pg MCHC (32-36) g/dL RDW Std Deviation (36.4-46.3) fL RDW Coeff of Mile (11.5-14.5) % Plt Count (130-400) K/uL MPV (7.4-10.4) fL Immature Gran % (Auto) % Neut % (Auto) % Lymph % (Auto) % [place] % (Auto) % Eos % (Auto) % Baso % (Auto) % Neut # (Auto) (1.4-6.5) K/uL Lymph # (Auto) (1.2-3.4) K/uL [place] # (Auto) (0.11-0.59) K/uL Eos # (Auto) (0-0.5) K/uL Baso # (Auto) (0-0.2) K/uL Immature Gran # (Auto) (0.00-0.02) K/uL Hypersegmented Neuts Polychromasia Macrocytosis APTT (21.0-31.0) Seconds PTT Ratio VBG pH (7.36-7.41) VBG pCO2 (38-50) mmHg VBG pO2 mmHg VBG HCO3 mmol/L VBG O2 Saturation % VBG Base Excess mEq/L Sodium (136-145) mmol/L Potassium (3.5-5.1) mmol/L Chloride (98-107) mmol/L Carbon Dioxide (21-32) mmol/L Anion Gap (3-11) BUN (7-18) mg/dl Creatinine (0.6-1.2) mg/dl Est Cr Clr Drug Dosing Est GFR ( Amer) ml/min Est GFR (Non-Af Amer) ml/min BUN/Creatinine Ratio (10-20) Glucose (70-99) mg/dl Lactate 1.6 (0.4-2.0) mmol/L Calcium (8.5-10.1) mg/dl Total Bilirubin (0.2-1) mg/dl AST (15-37) U/L ALT (12-78) U/L Alkaline Phosphatase (45-117) U/L Total Creatine Kinase (26-192) U/L CK-MB (CK-2) (0.5-3.6) ng/ml CK/CKMB % Calc Troponin I (0-0.045) ng/ml NT-Pro-B Natriuret Pep (0-1800) pg/ml Total Protein (6.4-8.2) gm/dl Albumin (3.4-5.0) gm/dl Globulin (2.5-4.0) gm/dl Albumin/Globulin Ratio (0.9-2) Lipase (73-393) U/L COVID-19 Eval Order SARS-CoV-2 (PCR) (Negative) Bld Cult Staph aureus PCR Negative (Negative) Blood Culture MRSA PCR Negative (Negative) Administered Medications Acetaminophen (Acetaminophen 325 Mg Tab) 650 mg PO Q4H PRN PRN Reason: Pain or Fever Stop: 12/21/20 03:49 Last Admin: 11/26/20 21:14 Dose: 650 mg Documented by: [id number] Admin: 11/26/20 11:19 Dose: 650 mg Documented by: [id number] Admin: 11/24/20 18:09 Dose: 650 mg Documented by: [id number] Admin: 11/23/20 05:01 Dose: 650 mg Documented by: [id number] Admin: 11/22/20 11:50 Dose: 650 mg Documented by: [id number] Carvedilol (Carvedilol 25 Mg Tab) 25 mg PO BID MONIQUE Stop: 12/21/20 08:59 Last Admin: 11/28/20 08:44 Dose: Not Given Documented by: [id number] Admin: 11/27/20 21:33 Dose: 25 mg Documented by: [id number] Admin: 11/27/20 09:28 Dose: 25 mg Documented by: [id number] Admin: 11/26/20 21:08 Dose: 25 mg Documented by: [id number] Admin: 11/26/20 07:43 Dose: Not Given Documented by: [id number] Admin: 11/25/20 20:47 Dose: 25 mg Documented by: [id number] Admin: 11/25/20 07:47 Dose: 25 mg Documented by: [id number] Admin: 11/24/20 21:21 Dose: 25 mg Documented by: [id number] Admin: 11/24/20 09:27 Dose: 25 mg Documented by: [id number] Admin: 11/23/20 20:42 Dose: 25 mg Documented by: [id number] Admin: 11/23/20 08:23 Dose: 25 mg Documented by: [id number] Admin: 11/22/20 20:11 Dose: 25 mg Documented by: [id number] Admin: 11/22/20 08:54 Dose: 25 mg Documented by: [id number] Admin: 11/21/20 20:36 Dose: 25 mg Documented by: [id number] Admin: 11/21/20 08:38 Dose: 25 mg Documented by: [id number] Duloxetine HCl (Duloxetine Hcl 60 Mg Cap) 60 mg PO DAILY MONIQUE Stop: 12/21/20 08:59 Last Admin: 11/28/20 08:44 Dose: 60 mg Documented by: [id number] Admin: 11/27/20 09:28 Dose: 60 mg Documented by: [id number] Admin: 11/26/20 07:43 Dose: 60 mg Documented by: [id number] Admin: 11/25/20 07:56 Dose: 60 mg Documented by: [id number] Admin: 11/24/20 09:33 Dose: 60 mg Documented by: [id number] Admin: 11/23/20 08:24 Dose: 60 mg Documented by: [id number] Admin: 11/22/20 08:56 Dose: 60 mg Documented by: [id number] Admin: 11/21/20 08:38 Dose: 60 mg Documented by: [id number] Enoxaparin Sodium (Enoxaparin Inj 40 Mg/0.4 Ml Syr) 40 mg SQ Q12H MONIQUE Stop: 12/21/20 05:59 Last Admin: 11/28/20 06:24 Dose: 40 mg Documented by: [id number] Admin: 11/27/20 18:13 Dose: 40 mg Documented by: [id number] Admin: 11/27/20 06:19 Dose: 40 mg Documented by: [id number] Admin: 11/26/20 18:27 Dose: 40 mg Documented by: [id number] Admin: 11/26/20 06:03 Dose: 40 mg Documented by: [id number] Admin: 11/25/20 17:32 Dose: 40 mg Documented by: [id number] Admin: 11/25/20 06:01 Dose: 40 mg Documented by: [id number] Admin: 11/24/20 17:12 Dose: 40 mg Documented by: [id number] Admin: 11/24/20 06:02 Dose: 40 mg Documented by: [id number] Admin: 11/23/20 17:42 Dose: 40 mg Documented by: [id number] Admin: 11/23/20 06:27 Dose: 40 mg Documented by: [id number] Admin: 11/22/20 17:42 Dose: 40 mg Documented by: [id number] Admin: 11/22/20 06:20 Dose: 40 mg Documented by: [id number] Admin: 11/21/20 17:21 Dose: 40 mg Documented by: [id number] Admin: 11/21/20 06:32 Dose: 40 mg Documented by: [id number] Furosemide (Furosemide 40 Mg Tab) 40 mg PO QAM MONIQUE Stop: 12/27/20 08:59 Last Admin: 11/28/20 08:43 Dose: 40 mg Documented by: [id number] Admin: 11/27/20 09:28 Dose: 40 mg Documented by: [id number] Gabapentin (Gabapentin 300 Mg Cap) 300 mg PO DAILY@0900,1400 MONIQUE Stop: 12/21/20 08:59 Last Admin: 11/28/20 08:45 Dose: 300 mg Documented by: [id number] Admin: 11/27/20 14:00 Dose: 300 mg Documented by: [id number] Admin: 11/27/20 09:29 Dose: 300 mg Documented by: [id number] Admin: 11/26/20 12:35 Dose: 300 mg Documented by: [id number] Admin: 11/26/20 07:42 Dose: 300 mg Documented by: [id number] Admin: 11/25/20 12:20 Dose: 300 mg Documented by: [id number] Admin: 11/25/20 07:46 Dose: 300 mg Documented by: [id number] Admin: 11/24/20 15:34 Dose: 300 mg Documented by: [id number] Admin: 11/24/20 09:28 Dose: 300 mg Documented by: [id number] Admin: 11/23/20 14:26 Dose: 300 mg Documented by: [id number] Admin: 11/23/20 08:24 Dose: 300 mg Documented by: [id number] Admin: 11/22/20 15:51 Dose: 300 mg Documented by: [id number] Admin: 11/22/20 08:54 Dose: 300 mg Documented by: [id number] Admin: 11/21/20 15:19 Dose: 300 mg Documented by: [id number] Admin: 11/21/20 08:38 Dose: 300 mg Documented by: [id number] Gabapentin (Gabapentin 300 Mg Cap) 600 mg PO HS MONIQUE Stop: 12/21/20 20:59 Last Admin: 11/27/20 21:33 Dose: 600 mg Documented by: [id number] Admin: 11/26/20 21:07 Dose: 600 mg Documented by: [id number] Admin: 11/25/20 20:47 Dose: 600 mg Documented by: [id number] Admin: 11/24/20 21:20 Dose: 600 mg Documented by: [id number] Admin: 11/23/20 20:42 Dose: 600 mg Documented by: [id number] Admin: 11/22/20 20:11 Dose: 600 mg Documented by: [id number] Admin: 11/21/20 20:36 Dose: 600 mg Documented by: [id number] Insulin Aspart (Insulin Aspart 100 Units/Ml 3 Ml Pen) 0 units SC ACHS MONIQUE Stop: 12/21/20 11:29 Last Admin: 11/28/20 08:44 Dose: Not Given Documented by: [id number] Admin: 11/27/20 21:30 Dose: 6 units Documented by: [id number] Cosigned by: [id number] Admin: 11/27/20 17:12 Dose: 1 units Documented by: [id number] Cosigned by: [id number] Admin: 11/27/20 12:52 Dose: 1 units Documented by: [id number] Cosigned by: [id number] Admin: 11/27/20 09:25 Dose: 1 units Documented by: [id number] Cosigned by: [id number] Admin: 11/26/20 21:11 Dose: Not Given Documented by: [id number] Cosigned by: [id number] Admin: 11/26/20 17:39 Dose: 4 units Documented by: [id number] Cosigned by: [id number] Admin: 11/26/20 12:32 Dose: 9 units Documented by: [id number] Cosigned by: [id number] Admin: 11/26/20 08:46 Dose: 4 units Documented by: [id number] Cosigned by: [id number] Admin: 11/25/20 20:50 Dose: 4 units Documented by: [id number] Cosigned by: [id number] Admin: 11/25/20 17:14 Dose: 7 units Documented by: [id number] Cosigned by: [id number] Admin: 11/25/20 12:17 Dose: 4 units Documented by: [id number] Cosigned by: [id number] Admin: 11/25/20 08:33 Dose: 2 units Documented by: [id number] Cosigned by: [id number] Admin: 11/24/20 21:14 Dose: 5 units Documented by: [id number] Cosigned by: [id number] Admin: 11/24/20 17:15 Dose: 3 units Documented by: [id number] Cosigned by: [id number] Admin: 11/24/20 12:00 Dose: Not Given Documented by: [id number] Admin: 11/24/20 09:31 Dose: 2 units Documented by: [id number] Cosigned by: [id number] Admin: 11/23/20 20:48 Dose: Not Given Documented by: [id number] Cosigned by: [id number] Admin: 11/23/20 17:42 Dose: 2 units Documented by: [id number] Cosigned by: [id number] Admin: 11/23/20 12:22 Dose: 2 units Documented by: [id number] Cosigned by: [id number] Admin: 11/23/20 08:25 Dose: 3 units Documented by: [id number] Cosigned by: [id number] Admin: 11/22/20 20:13 Dose: 4 units Documented by: [id number] Cosigned by: [id number] Admin: 11/22/20 17:46 Dose: 5 units Documented by: [id number] Cosigned by: [id number] Admin: 11/22/20 12:55 Dose: 2 units Documented by: [id number] Cosigned by: [id number] Admin: 11/22/20 08:30 Dose: 4 units Documented by: [id number] Cosigned by: [id number] Admin: 11/21/20 20:36 Dose: 4 units Documented by: [id number] Cosigned by: [id number] Admin: 11/21/20 17:58 Dose: Not Given Documented by: [id number] Cosigned by: [id number] Admin: 11/21/20 15:08 Dose: Not Given Documented by: [id number] Cosigned by: [id number] Lactulose (Lactulose Syrup 30 Gm/45 Ml Udp) 30 gm PO BID MONIQUE Stop: 12/23/20 20:59 Last Admin: 11/28/20 08:45 Dose: 30 gm Documented by: [id number] Admin: 11/27/20 21:35 Dose: Not Given Documented by: [id number] Admin: 11/27/20 09:32 Dose: Not Given Documented by: [id number] Admin: 11/26/20 21:09 Dose: Not Given Documented by: [id number] Admin: 11/26/20 11:19 Dose: 30 gm Documented by: [id number] Admin: 11/25/20 20:49 Dose: Not Given Documented by: [id number] Admin: 11/25/20 07:51 Dose: 30 gm Documented by: [id number] Admin: 11/24/20 21:22 Dose: Not Given Documented by: [id number] Admin: 11/24/20 11:29 Dose: 30 gm Documented by: [id number] Admin: 11/23/20 20:42 Dose: Not Given Documented by: [id number] Levofloxacin (Levofloxacin 500 Mg Tab) 500 mg PO DAILY@1100 [facility] Stop: 11/28/20 11:01 Last Admin: 11/27/20 11:37 Dose: 500 mg Documented by: [id number] Admin: 11/26/20 11:18 Dose: 500 mg Documented by: [id number] Admin: 11/25/20 10:45 Dose: 500 mg Documented by: [id number] Levothyroxine Sodium (Levothyroxine Sodium 125 Mcg Tablet) 125 mcg PO DAILYBB [facility] Stop: 12/21/20 06:29 Last Admin: 11/28/20 06:24 Dose: 125 mcg Documented by: [id number] Admin: 11/27/20 06:20 Dose: 125 mcg Documented by: [id number] Admin: 11/26/20 06:03 Dose: 125 mcg Documented by: [id number] Admin: 11/25/20 06:01 Dose: 125 mcg Documented by: [id number] Admin: 11/24/20 06:02 Dose: 125 mcg Documented by: [id number] Admin: 11/23/20 06:27 Dose: 125 mcg Documented by: [id number] Admin: 11/22/20 06:21 Dose: 125 mcg Documented by: [id number] Admin: 11/21/20 06:32 Dose: 125 mcg Documented by: [id number] Lidocaine (Lidocaine 5% 1 Patch) 1 patch TD QAM [facility] Stop: 12/21/20 08:59 Last Admin: 11/28/20 08:45 Dose: 1 patch Documented by: [id number] Admin: 11/27/20 09:24 Dose: 1 patch Documented by: [id number] Admin: 11/26/20 07:45 Dose: 1 patch Documented by: [id number] Admin: 11/25/20 07:48 Dose: 1 patch Documented by: [id number] Admin: 11/24/20 09:29 Dose: 1 patch Documented by: [id number] Admin: 11/23/20 08:24 Dose: 1 patch Documented by: [id number] Admin: 11/22/20 08:56 Dose: 1 patch Documented by: [id number] Admin: 11/21/20 08:37 Dose: 1 patch Documented by: [id number] Meclizine HCl (Meclizine Hcl 25 Mg Tab) 25 mg PO TID PRN PRN Reason: Dizziness Stop: 12/21/20 03:49 Last Admin: 11/26/20 07:43 Dose: 25 mg Documented by: [id number] Admin: 11/25/20 07:47 Dose: 25 mg Documented by: [id number] Admin: 11/22/20 08:53 Dose: 25 mg Documented by: [id number] Melatonin (Melatonin 3 Mg Tab) 3 mg PO HS PRN PRN Reason: Sleep Stop: 12/23/20 01:37 Last Admin: 11/27/20 21:37 Dose: 3 mg Documented by: [id number] Admin: 11/24/20 21:24 Dose: 3 mg Documented by: [id number] Admin: 11/23/20 01:48 Dose: 3 mg Documented by: [id number] Miscellaneous (Remove Lidoderm Patch) 1 ea N/A DAILY@2100 [facility] Stop: 12/21/20 20:59 Last Admin: 11/27/20 21:35 Dose: 1 ea Documented by: [id number] Admin: 11/26/20 21:09 Dose: 1 ea Documented by: [id number] Admin: 11/25/20 20:54 Dose: 1 ea Documented by: [id number] Admin: 11/24/20 21:21 Dose: 1 ea Documented by: [id number] Admin: 11/23/20 20:42 Dose: 1 ea Documented by: [id number] Admin: 11/22/20 20:12 Dose: 1 ea Documented by: [id number] Admin: 11/21/20 20:36 Dose: 1 ea Documented by: [id number] Pantoprazole Sodium (Pantoprazole 40 Mg Tab) 40 mg PO [facility] Stop: 12/21/20 08:59 Last Admin: 11/28/20 08:45 Dose: 40 mg Documented by: [id number] Admin: 11/27/20 09:29 Dose: 40 mg Documented by: [id number] Admin: 11/26/20 07:42 Dose: 40 mg Documented by: [id number] Admin: 11/25/20 07:47 Dose: 40 mg Documented by: [id number] Admin: 11/24/20 09:28 Dose: 40 mg Documented by: [id number] Admin: 11/23/20 08:23 Dose: 40 mg Documented by: [id number] Admin: 11/22/20 08:55 Dose: 40 mg Documented by: [id number] Admin: 11/21/20 08:38 Dose: 40 mg Documented by: [id number] Pramipexole Dihydrochloride (Pramipexole Dihydrochlo 0.25 Mg Tab) 0.25 mg PO QPM PRN PRN Reason: restless leg(s) Stop: 12/21/20 03:49 Last Admin: 11/26/20 21:16 Dose: 0.25 mg Documented by: [id number] Admin: 11/24/20 21:31 Dose: 0.25 mg Documented by: [id number] Admin: 11/23/20 20:42 Dose: 0.25 mg Documented by: [id number] Admin: 11/23/20 03:22 Dose: 0.25 mg Documented by: [id number] Admin: 11/21/20 08:38 Dose: 0.25 mg Documented by: [id number] Prednisone (Prednisone 10 Mg Tablet) 30 mg PO DAILY [facility]; Taper Stop: 12/05/20 08:59 Last Admin: 11/28/20 08:45 Dose: 30 mg Documented by: [id number] Admin: 11/27/20 09:29 Dose: 30 mg Documented by: [id number] Admin: 11/26/20 07:44 Dose: 30 mg Documented by: [id number] Spironolactone (Spironolactone 25 Mg Tab) 50 mg PO QAM [facility] Stop: 12/21/20 08:59 Last Admin: 11/28/20 08:46 Dose: 50 mg Documented by: [id number] Admin: 11/27/20 09:29 Dose: 50 mg Documented by: [id number] Admin: 11/26/20 07:44 Dose: 50 mg Documented by: [id number] Admin: 11/25/20 07:48 Dose: 50 mg Documented by: [id number] Admin: 11/24/20 09:28 Dose: 50 mg Documented by: [id number] Admin: 11/23/20 08:23 Dose: 50 mg Documented by: [id number] Admin: 11/22/20 08:57 Dose: 50 mg Documented by: [id number] Admin: 11/21/20 08:39 Dose: 50 mg Documented by: [id number] Umeclidinium Lincoln (Umeclidinium [place] 62.5mcg/Blister 7 Puffs/Inhaler) 1 puffs INH QAM [facility] Stop: 12/21/20 08:59 Last Admin: 11/28/20 08:49 Dose: 1 puffs Documented by: [id number] Admin: 11/27/20 09:29 Dose: 1 puffs Documented by: [id number] Admin: 11/26/20 07:42 Dose: 1 puffs Documented by: [id number] Admin: 11/25/20 07:46 Dose: 1 puffs Documented by: [id number] Admin: 11/24/20 09:29 Dose: 1 puffs Documented by: [id number] Admin: 11/23/20 08:25 Dose: 1 puffs Documented by: [id number] Admin: 11/22/20 08:57 Dose: 1 puffs Documented by: [id number] Admin: 11/21/20 08:38 Dose: 1 puffs Documented by: [id number] Discontinued Medications Albuterol (Albut/Ipratrop 3mg/0.5mg Neb 3 Ml Vial) 12 ml NEB ONE ONE Stop: 11/20/20 22:48 Last Admin: 11/20/20 23:00 Dose: 12 ml Documented by: [id number] Carvedilol (Carvedilol 25 Mg Tab) 25 mg PO NOW ONE Stop: 11/21/20 02:39 Last Admin: 11/21/20 03:23 Dose: 25 mg Documented by: [id number] Furosemide (Furosemide 40 Mg/4 Ml Vial) 20 mg IV NOW STA Stop: 11/20/20 23:59 Last Admin: 11/21/20 00:45 Dose: 20 mg Documented by: [id number] Lorazepam (Ativan) 0.5 mg in 1 mls @ 1 mls/min IV NOW STA Stop: 11/21/20 01:32 Last Admin: 11/21/20 01:45 Dose: 1 mls/min Documented by: [id number] Methylprednisolone 125 mg/ (Syringe) 2 mls @ 1.5 mls/min IV Q12H [facility] Stop: 12/21/20 08:59 Last Admin: 11/21/20 08:37 Dose: 1.5 mls/min Documented by: [id number] Furosemide 40 mg/ Syringe 4 mls @ 4 mls/min IV ONE ONE Stop: 11/21/20 07:31 Last Admin: 11/21/20 08:37 Dose: 4 mls/min Documented by: [id number] Magnesium Sulfate/Dextrose (Magnesium Sulfate / D5w) 1 gm in 100 mls @ 50 mls/hr IV Q2H [facility] Stop: 11/21/20 15:59 Last Infusion: 11/21/20 18:38 Dose: 0 mls/hr Documented by: [id number] Admin: 11/21/20 16:32 Dose: 50 mls/hr Documented by: [id number] Infusion: 11/21/20 15:39 Dose: 50 mls/hr Documented by: [id number] Admin: 11/21/20 13:39 Dose: 50 mls/hr Documented by: [id number] Methylprednisolone 60 mg/ (Syringe) 0.96 mls @ 1.5 mls/min IV Q12 [facility] Stop: 12/21/20 20:59 Last Admin: 11/22/20 20:53 Dose: 1.5 mls/min Documented by: [id number] Admin: 11/22/20 08:53 Dose: 1.5 mls/min Documented by: [id number] Admin: 11/21/20 20:55 Dose: 1.5 mls/min Documented by: [id number] Furosemide 40 mg/ Syringe 4 mls @ 4 mls/min IV [id number] [facility] Stop: 12/21/20 16:59 Last Admin: 11/23/20 08:24 Dose: 4 mls/min Documented by: [id number] Admin: 11/22/20 17:41 Dose: 4 mls/min Documented by: [id number] Admin: 11/22/20 08:53 Dose: 4 mls/min Documented by: [id number] Admin: 11/21/20 17:20 Dose: 4 mls/min Documented by: [id number] Vancomycin HCl 2,250 mg/ (Sodium Chloride) 545 mls @ 200 mls/hr IV ONE ONE Stop: 11/22/20 17:28 Last Infusion: 11/22/20 19:09 Dose: 0 mls/hr Documented by: [id number] Admin: 11/22/20 15:51 Dose: 200 mls/hr Documented by: [id number] Vancomycin HCl 1,000 mg/ (Sodium Chloride) 270 mls @ 200 mls/hr IV Q12H [facility] Stop: 12/06/20 15:59 Last Infusion: 11/24/20 05:52 Dose: 0 mls/hr Documented by: [id number] Admin: 11/24/20 04:24 Dose: 200 mls/hr Documented by: [id number] Infusion: 11/23/20 19:22 Dose: 0 mls/hr Documented by: [id number] Admin: 11/23/20 16:56 Dose: 200 mls/hr Documented by: [id number] Infusion: 11/23/20 05:13 Dose: 0 mls/hr Documented by: [id number] Admin: 11/23/20 03:26 Dose: 200 mls/hr Documented by: [id number] Methylprednisolone 40 mg/ (Syringe) 0.64 mls @ 1.5 mls/min IV Q12H [facility] Stop: 12/23/20 08:59 Last Admin: 11/23/20 08:24 Dose: 1.5 mls/min Documented by: [id number] Furosemide 40 mg/ Syringe 4 mls @ 4 mls/min IV DAILY@1100 [facility] Stop: 12/24/20 10:59 Last Admin: 11/26/20 11:18 Dose: 4 mls/min Documented by: [id number] Admin: 11/25/20 10:45 Dose: 4 mls/min Documented by: [id number] Admin: 11/24/20 11:29 Dose: 4 mls/min Documented by: [id number] Vancomycin HCl 750 mg/ Sodium (Chloride) 265 mls @ 200 mls/hr IV Q12H [facility] Stop: 12/06/20 15:59 Last Infusion: 11/25/20 05:53 Dose: 0 mls/hr Documented by: [id number] Admin: 11/25/20 04:13 Dose: 200 mls/hr Documented by: [id number] Infusion: 11/24/20 19:19 Dose: 0 mls/hr Documented by: [id number] Infusion: 11/24/20 17:55 Dose: 189 mls/hr Documented by: [id number] Infusion: 11/24/20 17:30 Dose: 0 mls/hr Documented by: [id number] Admin: 11/24/20 17:11 Dose: 200 mls/hr Documented by: [id number] Ioversol (Optiray 320 125ml) 120 ml IV ONCE ONE Stop: 11/21/20 10:09 Last Admin: 11/21/20 10:08 Dose: 120 ml Documented by: [id number] Lactulose (Lactulose Syrup 30 Gm/45 Ml Udp) 30 gm PO BID [facility] Stop: 12/21/20 08:59 Last Admin: 11/22/20 08:56 Dose: 30 gm Documented by: [id number] Admin: 11/21/20 20:38 Dose: Not Given Documented by: [id number] Admin: 11/21/20 08:38 Dose: 30 gm Documented by: [id number] Lactulose (Lactulose Syrup 30 Gm/45 Ml Udp) 30 gm PO NOW STA Stop: 11/22/20 16:35 Last Admin: 11/22/20 17:41 Dose: 30 gm Documented by: [id number] Lactulose (Lactulose Syrup 30 Gm/45 Ml Udp) 30 gm PO TID [facility] Stop: 12/22/20 20:59 Last Admin: 11/23/20 08:25 Dose: 30 gm Documented by: [id number] Admin: 11/22/20 20:11 Dose: 30 gm Documented by: [id number] Levalbuterol HCl (Levalbuterol Hcl 0.63 Mg/3 Ml Neb) 0.63 mg NEB Q6R [facility] Stop: 12/21/20 06:59 Last Admin: 11/24/20 07:06 Dose: 0.63 mg Documented by: [id number] Admin: 11/24/20 01:07 Dose: 0.63 mg Documented by: [id number] Admin: 11/23/20 19:10 Dose: 0.63 mg Documented by: [id number] Admin: 11/23/20 12:50 Dose: 0.63 mg Documented by: [id number] Admin: 11/23/20 07:15 Dose: 0.63 mg Documented by: [id number] Admin: 11/23/20 01:32 Dose: 0.63 mg Documented by: [id number] Admin: 11/22/20 19:51 Dose: 0.63 mg Documented by: [id number] Admin: 11/22/20 13:05 Dose: 0.63 mg Documented by: [id number] Admin: 11/22/20 07:00 Dose: 0.63 mg Documented by: [id number] Admin: 11/22/20 00:31 Dose: 0.63 mg Documented by: [id number] Admin: 11/21/20 19:09 Dose: 0.63 mg Documented by: [id number] Admin: 11/21/20 12:56 Dose: 0.63 mg Documented by: [id number] Admin: 11/21/20 07:04 Dose: 0.63 mg Documented by: [id number] Methylprednisolone (Methylprednisolone 125 Mg/2 Ml Vial) 125 mg IV NOW STA Stop: 11/20/20 22:47 Last Admin: 11/20/20 23:19 Dose: 125 mg Documented by: [id number] Prednisone (Pred[facility]one 20 Mg Tab) [facility] Stop: 12/24/20 08:59 Last Admin: 11/25/20 07:47 Dose: 40 mg Documented by: [id number] Admin: 11/24/20 09:28 Dose: 40 mg Documented by: [id number] Prochlorperazine (Prochlorperazine Maleate 5 Mg Tab) 5 mg PO NOW ONE Stop: 11/23/20 02:04 Last Admin: 11/23/20 02:19 Dose: 5 mg Documented by: [id number] Tramadol HCl (Tramadol Hcl 50 Mg Tablet) 50 mg PO NOW STA Stop: 11/21/20 06:37 Last Admin: 11/21/20 06:50 Dose: 50 mg Documented by: [id number] Imaging Data Radiologist's Impression: Chest X-Ray 11/20/20 22:45 XR chest 1V portable HISTORY: Atypical Chest Pain COMPARISON: Chest 11/15/2020. FINDINGS: Increase in size in the 3.3 cm right apical irregular density. No new focal lung consolidations to suggest pneumonia. There are low lung volumes. Chronic interstitial thickening and mild cardiomegaly persists. No pneumothorax. No pleural fusions. IMPRESSION: Increase in size in the 3.3 cm right apical irregular density. This is highly suspicious for a primary bronchogenic malignancy. ACT 112: Negative or not required by law. Electronically signed by: Ernie Silva M.D. 11/21/2020 10:16 AM Discharge Plan Visit Data Chief Complaint: Shortness of Breath/Dyspnea Stated Complaint: WEAKNESS/BREATHING DIFFICULTY ED Provider: Fredy De Oliveira Discharge Problem: Hypoxia, Hyponatremia, Anemia Patient Disposition: Admitted As Inpatient Discharge Instructions Interventions: ED Discharge Assessment Last Done: 08/14/21 03:30 Discharge Problem: Anemia Qualifiers: Anemia type: unspecified type Qualified Code(s): D64.9 - Anemia, unspecified
[2020-11-21] LABS: Alanine Aminotransferase 42 U/L (12-78); Albumin Globulin Ratio 0.6 (0.9-2); Albumin Level 3.1 gm/dl (3.4-5.0); Alkaline Phosphatase 142 U/L (45-117); BUN Creatinine Ratio 13.7 (10-20); Bilirubin,Total 1.2 mg/dl (0.2-1); Blood Urea Nitrogen 10 mg/dl (7-18); Calcium 9.2 mg/dl (8.5-10.1); Carbon Dioxide 35 mmol/L (21-32); Chloride 90 mmol/L (98-107); Creatine Kinase MB 1.6 ng/ml (0.5-3.6); Est GFR (African American) 89.9 ml/min; Est GFR (Non-African American) 77.6 ml/min; Globulin 4.9 gm/dl (2.5-4.0); Glucose 102 mg/dl (70-99); Lipase 168 U/L (73-393); Sodium 128 mmol/L (136-145); Troponin I < 0.015 ng/ml (0-0.045)
[2020-11-21 00:01] LABS: Macrocytosis Present; Polychromasia 1+
[2020-11-21 00:15] LABS: NT Pro B Type Natriuretic Pept 598 pg/ml (0-1800)
--- NOTE | 2020-11-21 01:23 | History & Physical Report ---
Date of Service November 21, 2020 Assessment & Plan (1) Acute respiratory failure with hypoxia and hypercapnia: Plan: Bernarda Lara is a 80-year-old female with past medical history significant for chronic back pain, nonalcoholic cirrhosis with varices, COPD, and type 2 diabetes; who presents for concerns of shortness of breath with low oxygen saturation while at home. Acute hypoxic respiratory failure: -Uncertain etiology of acute shortness of breath with hypoxia -Patient with denial of reported history of COPD -Continues to utilize/smoke tobacco ([id number] smoking history) -Chest x-ray demonstrating continued right upper lobe pulmonary nodule, as well as some congestive changes bibasilar -In the absence of infectious markers does not appear to be hospital-acquired or community-acquired pneumonia type picture; as such will hold off on antibiotics -COVID-19 negative -Solu-Medrol 125 mg q12h -Xopenex q6R -Wean oxygen as tolerated Tachycardia: -Seemingly increasing tachycardia following administration of albuterol -Potentially reactive in nature versus missed evening dose carvedilol -Seemingly improved following administration of Coreg -Continue to monitor on telemetry Hyponatremia: -Sodium of 128 on admission -Recent hospitalization and similar hyponatremia deemed due to poor oral intake -Patient was reportedly continued poor oral intake over the last several days since discharge, but has been drinking fluids/water -Trial of fluid restriction for improvement in hyponatremia -Recheck with a.m. lab Hypertension: -Continue Coreg 25 mg BID, and Lasix 20 mg daily Portal hypertension with varices: -Follows with [facility] locally -Continue lactulose twice daily, spironolactone daily, and Lasix daily Chronic back pain: -Longstanding history of chronic back pain -CT demonstrating severe compression fracture of T7 and additional compression fractures of T11-L1 Diet: Heart healthy DVT ppx: Lovenox 40 twice daily CODE STATUS: DNR/DNI (2) COPD (chronic obstructive pulmonary disease): (3) Hyponatremia: (4) Chronic back pain: (5) Hypertension: (6) Hypothyroidism: (7) Dyslipidemia: (8) Diabetes type 2, controlled: History of Present Illness Chief Complaint: shortness of breath Primary Care Provider: Courtney Jules DO Bernarda Lara is a 80-year-old female with past medical history significant for chronic back pain, nonalcoholic cirrhosis with varices, COPD, and type 2 diabetes; who presents for concerns of shortness of breath with low oxygen saturation while at home. Of note, patient recently returned home following admission for acute pancreatitis. She reports that over the last couple days she has continued to have shortness of breath, improved at rest. Not associated with any chest pain or abdominal pain. On presentation of EMS to her home, she was reportedly in the mid to low 80s on her oxygen saturation. Ultimately started on nasal cannula oxygen with subsequent up titration prior to presentation to ED to 4 L nasal cannula. In the ED quickly required BiPAP support to maintain oxygen saturations, before transition to high flow nasal cannula. Additionally following presentation to ED she developed tachycardia to the 120s/130s. EKG at that point time demonstrated sinus tachycardia. Uncertain whether or not patient has been able to take her medications over the last several days, so she was given oral Coreg. On review of recent hospitalization records, patient was on Lovenox twice daily for DVT prophylaxis, reportedly was ambulatory at home. Currently continuous only note feeling short of breath, and persistent low back pain which she has struggled with for years. Allergies Allergy/AdvReac Type Severity Reaction Status Date / Time aspirin AdvReac Intermediate advised Verified 11/20/20 23:57 not to take d/t cirrhosis and gi bleed cortisone AdvReac Intermediate "WEIRD Verified 11/20/20 23:57 FEELING NSAIDS (Non-Steroidal AdvReac Intermediate advised Verified 11/20/20 23:57 Anti-Inflamma not to take d/t cirrhosis and gi bleed Home Medications Medication Instructions Recorded Confirmed Type cholecalciferol (vitamin D3) 125 5,000 unit PO QAM #30 tab 08/17/18 11/21/20 History mcg (5,000 unit) tablet ferrous sulfate 325 mg (65 mg 325 mg PO BID #180 tab 01/09/20 11/21/20 Rx iron) tablet (Iron (ferrous sulfate)) levothyroxine 125 mcg tablet 125 mcg PO QAM #90 tab 02/25/20 11/21/20 Rx (Synthroid) blood-glucose meter (OneTouch #1 ea 04/01/20 11/05/20 Rx Ultra2 Meter) blood-glucose meter (OneTouch #1 ea 04/01/20 11/05/20 Rx UltraMini) ondansetron 4 mg disintegrating 4 - 8 mg PO Q8H PRN #270 tab 07/02/20 11/21/20 Rx tablet carvedilol 25 mg tablet (Coreg) 25 mg PO BID #180 tab 07/13/20 11/21/20 Rx pantoprazole 40 mg tablet,delayed 40 mg PO QAM #90 tab 07/13/20 11/21/20 Rx release (Protonix) furosemide 20 mg tablet (Lasix) 20 mg PO QAM #90 tab 09/11/20 11/21/20 Rx meclizine 25 mg tablet (Dramamine 25 mg PO TID PRN #30 tab 09/11/20 11/21/20 Rx Less Drowsy) pramipexole 0.25 mg tablet 0.25 mg PO QPM PRN #90 tab 10/19/20 11/21/20 Rx gabapentin 300 mg capsule See Rx Instructions .ROUTE 10/27/20 11/21/20 Rx .COMPLEX #120 cap diclofenac sodium 1 % topical gel 2 g TOPICAL QID PRN #100 g 10/30/20 11/21/20 Rx albuterol sulfate 90 mcg/actuation 1 inh INHALATION QID PRN #8.5 g 11/05/20 11/21/20 Rx aerosol inhaler duloxetine 30 mg capsule,delayed 60 mg PO DAILY 11/15/20 11/21/20 History release spironolactone 25 mg tablet 50 mg PO QAM 11/15/20 11/21/20 History (Aldactone) lactulose 10 gram/15 mL (15 mL) 30 g PO BID 30 Days #2700 ml 11/18/20 11/21/20 Rx oral solution Past Med/Surg History Medical History (Updated 11/21/20 @ 11:33 by Lida Rueda MD) Acute pancreatitis Asthma HAS NOT USED INHALER FOR A LONG TIME Chronic back pain Chronic reflux esophagitis COPD (chronic obstructive pulmonary disease) PT DENIES Degenerative arthritis of lumbar spine Depression with anxiety Diabetes type 2, controlled diet controlled Diffuse myofascial pain syndrome Dyslipidemia Esophageal varices in cirrhosis Hypertension Hypothyroidism 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 Obesity Opioid-induced hyperalgesia Pulmonary nodule Restless legs syndrome Surgical History History of cholecystectomy History of colonoscopy History of esophagogastroduodenoscopy (EGD) History of hip surgery LEFT History of left cataract extraction History of open reduction and internal fixation (ORIF) procedure right lower extremity History of right cataract surgery History of tonsillectomy History of tooth extraction History of total abdominal hysterectomy and bilateral salpingo-oophorectomy Secondary to fibroid History of tubal ligation Family History Mother Diabetes Stroke Daughter Diabetes Father Pneumonia Other No family history of adverse response to anesthesia Denies family history of Ovarian cancer Prostate cancer Myocardial infarction Breast cancer Colorectal cancer Social History Smoking Status: Current every day smoker Tobacco Type: Cigarettes packs per day: 0.5; Cigarettes Per Day: 5; Second Hand Exposure: No; Do You Dip or Chew Tobacco: No; Tobacco Cessation Education Requested by Patient: No Hx Alcohol Use: No Hx Substance Use: No Preferred Language: Romansh Communication Ability: Effective Visual Impairment: No Limitations Hearing Ability: Normal Consultant Internship Required: No Beliefs That Will Affect Care: None marital status: / Current Living Situation: Alone current occupational status: retired How many Children do You have: 2 Other Information That Helps Us Care for You: No Feels Safe at Home: Yes Safety Concerns: Feels Safe At This Time Childhood Exposure to Second-Hand Smoke: Yes caffeine: Yes during the past year weight has: increased > 10 lbs Dental Care, Regularly: No Physical Activity Frequency: Does not Exercise Seatbelt Use: always Assistive Devices: Denture - Upper and Oxygen - Continuous Review of Systems Review of Systems: All systems reviewed & are unremarkable except as noted in HPI & below Physical Exam Constitutional: WD/WN, vitals as above Eyes: PERRL, conjunctivae normal, anicteric sclerae Respiratory: normal respiratory effort, + tachypneic and symmetric chest mo vement; no respiratory distress and no labored breathing Auscultation: + wheezes (Bilateral lower lobes); no crackles, no rales and no rhonchi Cardiovascular: Rate/Rhythm: regular rhythm and + tachycardic Heart Sounds: no gallop, no murmur and no cardiac rub Vessels: normal peripheral pulses; no JVD Extremities: no edema Gastrointestinal (Abdomen): Inspection/Auscultation: normal bowel sounds; abdomen not distended Percussion/Palpation: + abdomen tender and abdomen soft; no guarding Musculoskeletal: no cyanosis or clubbing, extremities motor strength 5/5 Skin: no rashes, warm and dry Neurologic: PERRL, EOMI, accommodation nl, no face palsy, no dysarthria C N's II-XI intact bilaterally and moves all extremities Psychiatric: Orientation: alert and oriented x 3 Results & Data Results & Data ([facility]) Vital Signs (Past 12 Hours) Vital Signs Temp Pulse Pulse Resp BP Pulse Ox 11/21/20 00:07 126 H 28 H 96 11/20/20 23:05 83 26 H 100 11/20/20 23:02 75 26 H 100 11/20/20 22:31 74 23 183/102 H 98 11/20/20 22:12 37.1 C 85 30 H 98 Laboratory Results 11/20/20 11/20/20 11/20/20 Range/Units 23:19 23:18 23:18 WBC (4.8-10.8) K/uL RBC (4.2-5.4) M/uL Hgb (12.0-16.0) g/dL Hct (37-47) % MCV (80-100) fL MCH (25-34) pg MCHC (32-36) g/dL RDW Std Deviation (36.4-46.3) fL RDW Coeff of Mile (11.5-14.5) % Plt Count (130-400) K/uL MPV (7.4-10.4) fL Immature Gran % (Auto) % Neut % (Auto) % Lymph % (Auto) % Schley % (Auto) % Eos % (Auto) % Baso % (Auto) % Neut # (Auto) (1.4-6.5) K/uL Lymph # (Auto) (1.2-3.4) K/uL Schley # (Auto) (0.11-0.59) K/uL Eos # (Auto) (0-0.5) K/uL Baso # (Auto) (0-0.2) K/uL Immature Gran # (Auto) (0.00-0.02) K/uL Hypersegmented Neuts Polychromasia Macrocytosis APTT (21.0-31.0) Seconds PTT Ratio VBG pH 7.36 (7.36-7.41) VBG pCO2 64 H (38-50) mmHg VBG pO2 35 mmHg VBG HCO3 35 mmol/L VBG O2 Saturation 60.6 % VBG Base Excess 7.2 mEq/L Sodium 128 L (136-145) mmol/L Potassium (3.5-5.1) mmol/L Chloride 90 L (98-107) mmol/L Carbon Dioxide 35 H (21-32) mmol/L Anion Gap 3.0 (3-11) BUN 10 (7-18) mg/dl Creatinine 0.74 (0.6-1.2) mg/dl Est Cr Clr Drug Dosing Not Reportable Est GFR ( Amer) 89.9 ml/min Est GFR (Non-Af Amer) 77.6 ml/min BUN/Creatinine Ratio 13.7 (10-20) Glucose 102 H (70-99) mg/dl Lactate 1.6 (0.4-2.0) mmol/L Calcium 9.2 (8.5-10.1) mg/dl Total Bilirubin 1.2 H (0.2-1) mg/dl AST (15-37) U/L ALT 42 (12-78) U/L Alkaline Phosphatase 142 H (45-117) U/L Total Creatine Kinase (26-192) U/L CK-MB (CK-2) 1.6 (0.5-3.6) ng/ml CK/CKMB % Calc TNP Troponin I < 0.015 (0-0.045) ng/ml NT-Pro-B Natriuret Pep 598 (0-1800) pg/ml Total Protein 8.0 (6.4-8.2) gm/dl Albumin 3.1 L (3.4-5.0) gm/dl Globulin 4.9 H (2.5-4.0) gm/dl Albumin/Globulin Ratio 0.6 L (0.9-2) Lipase 168 (73-393) U/L COVID-19 Eval Order SARS-CoV-2 (PCR) (Negative) 11/20/20 11/20/20 11/20/20 Range/Units 23:18 23:18 22:56 WBC 9.40 (4.8-10.8) K/uL RBC 3.69 L (4.2-5.4) M/uL Hgb 14.5 (12.0-16.0) g/dL Hct 42.5 (37-47) % MCV 115.2 H (80-100) fL MCH 39.3 H (25-34) pg MCHC 34.1 (32-36) g/dL RDW Std Deviation 55.1 H (36.4-46.3) fL RDW Coeff of Mile 13.1 (11.5-14.5) % Plt Count 168 (130-400) K/uL MPV 9.5 (7.4-10.4) fL Immature Gran % (Auto) 0.3 % Neut % (Auto) 73.3 % Lymph % (Auto) 13.8 % Schley % (Auto) 11.4 % Eos % (Auto) 1.0 % Baso % (Auto) 0.2 % Neut # (Auto) 6.89 H (1.4-6.5) K/uL Lymph # (Auto) 1.30 (1.2-3.4) K/uL Schley # (Auto) 1.07 H (0.11-0.59) K/uL Eos # (Auto) 0.09 (0-0.5) K/uL Baso # (Auto) 0.02 (0-0.2) K/uL Immature Gran # (Auto) 0.03 H (0.00-0.02) K/uL Hypersegmented Neuts 1+ Polychromasia 1+ Macrocytosis Present APTT 27.0 (21.0-31.0) Seconds PTT Ratio 1.0 VBG pH (7.36-7.41) VBG pCO2 (38-50) mmHg VBG pO2 mmHg VBG HCO3 mmol/L VBG O2 Saturation % VBG Base Excess mEq/L Sodium (136-145) mmol/L Potassium (3.5-5.1) mmol/L Chloride (98-107) mmol/L Carbon Dioxide (21-32) mmol/L Anion Gap (3-11) BUN (7-18) mg/dl Creatinine (0.6-1.2) mg/dl Est Cr Clr Drug Dosing Est GFR ( Amer) ml/min Est GFR (Non-Af Amer) ml/min BUN/Creatinine Ratio (10-20) Glucose (70-99) mg/dl Lactate (0.4-2.0) mmol/L Calcium (8.5-10.1) mg/dl Total Bilirubin (0.2-1) mg/dl AST (15-37) U/L ALT (12-78) U/L Alkaline Phosphatase (45-117) U/L Total Creatine Kinase (26-192) U/L CK-MB (CK-2) (0.5-3.6) ng/ml CK/CKMB % Calc Troponin I (0-0.045) ng/ml NT-Pro-B Natriuret Pep (0-1800) pg/ml Total Protein (6.4-8.2) gm/dl Albumin (3.4-5.0) gm/dl Globulin (2.5-4.0) gm/dl Albumin/Globulin Ratio (0.9-2) Lipase (73-393) U/L COVID-19 Eval Order SARS-CoV-2 (PCR) NEGATIVE (Negative) 11/20/20 Range/Units 22:56 WBC (4.8-10.8) K/uL RBC (4.2-5.4) M/uL Hgb (12.0-16.0) g/dL Hct (37-47) % MCV (80-100) fL MCH (25-34) pg MCHC (32-36) g/dL RDW Std Deviation (36.4-46.3) fL RDW Coeff of Mile (11.5-14.5) % Plt Count (130-400) K/uL MPV (7.4-10.4) fL Immature Gran % (Auto) % Neut % (Auto) % Lymph % (Auto) % Schley % (Auto) % Eos % (Auto) % Baso % (Auto) % Neut # (Auto) (1.4-6.5) K/uL Lymph # (Auto) (1.2-3.4) K/uL Schley # (Auto) (0.11-0.59) K/uL Eos # (Auto) (0-0.5) K/uL Baso # (Auto) (0-0.2) K/uL Immature Gran # (Auto) (0.00-0.02) K/uL Hypersegmented Neuts Polychromasia Macrocytosis APTT (21.0-31.0) Seconds PTT Ratio VBG pH (7.36-7.41) VBG pCO2 (38-50) mmHg VBG pO2 mmHg VBG HCO3 mmol/L VBG O2 Saturation % VBG Base Excess mEq/L Sodium (136-145) mmol/L Potassium (3.5-5.1) mmol/L Chloride (98-107) mmol/L Carbon Dioxide (21-32) mmol/L Anion Gap (3-11) BUN (7-18) mg/dl Creatinine (0.6-1.2) mg/dl Est Cr Clr Drug Dosing Est GFR ( Amer) ml/min Est GFR (Non-Af Amer) ml/min BUN/Creatinine Ratio (10-20) Glucose (70-99) mg/dl Lactate (0.4-2.0) mmol/L Calcium (8.5-10.1) mg/dl Total Bilirubin (0.2-1) mg/dl AST (15-37) U/L ALT (12-78) U/L Alkaline Phosphatase (45-117) U/L Total Creatine Kinase (26-192) U/L CK-MB (CK-2) (0.5-3.6) ng/ml CK/CKMB % Calc Troponin I (0-0.045) ng/ml NT-Pro-B Natriuret Pep (0-1800) pg/ml Total Protein (6.4-8.2) gm/dl Albumin (3.4-5.0) gm/dl Globulin (2.5-4.0) gm/dl Albumin/Globulin Ratio (0.9-2) Lipase (73-393) U/L COVID-19 Eval Order Covid19 at [facility] SARS-CoV-2 (PCR) (Negative) Diagnostic Findings CT CHEST Without Contrast: Irregular 3 x 1.6 cm density in the periphery of the right upper lobe may represent atelectasis versus pulmonary nodule. Recommend short-term follow-up versus PET scan to rule out nodule. There are mildly prominent interstitial markings throughout both lungs consistent with mild emphysema. There is a trace amount of left basilar subsegmental atelectasis. No pneumothorax or pleural effusion. The thoracic aorta is mildly calcified but nondilated. The heart is mildly enlarged. Moderate coronary and mitral calcification is present. No pericardial effusion. Sagittal reformatted images of the spine within osteopenia. There is a severe compression fracture with near complete loss of height of T7. Due to lack of surrounding soft tissue swelling, I suspect this is chronic. The mild compression fractures at T11, T12, and moderate compression fracture at L1 appear chronic. CT ABDOMEN & PELVIS Without Contrast: Mild hepatomegaly measuring 19.5 cm with somewhat nodular liver surface and small amount of perihepatic free fluid measuring up to 1.4 cm suggest mild cirrhosis. The spleen is not enlarged. The portal vein is mildly dilated measuring 19 mm. Previous cholecystectomy. The common hepatic duct is dilated to 1.5 cm per no choledocholithiasis is seen. Infrarenal abdominal aortic ectasia measuring 2.8 cm. Bowel loops are nondilated. There is a small amount of free fluid in the lower abdomen. No focal bowel wall edema is identified. Artifact from left hip arthroplasty. There are moderate to severe degenerative changes of the lumbar spine with compression fractures at L1 and L3 of 80 and 60% respectively. L3 may be acute. 3 mm posterior protrusion fracture fragments without spinal stenosis. Radiologist: Panda Ramires MD Medications Administered Home Medication List Medication Instructions Recorded cholecalciferol (vitamin D3) 125 5,000 unit PO QAM #30 tab 08/17/18 mcg (5,000 unit) tablet ferrous sulfate 325 mg (65 mg 325 mg PO BID #180 tab 01/09/20 iron) tablet (Iron (ferrous sulfate)) levothyroxine 125 mcg tablet 125 mcg PO QAM #90 tab 02/25/20 (Synthroid) blood-glucose meter (OneTouch #1 ea 04/01/20 Ultra2 Meter) blood-glucose meter (OneTouch #1 ea 04/01/20 UltraMini) ondansetron 4 mg disintegrating 4 - 8 mg PO Q8H PRN #270 tab 07/02/20 tablet carvedilol 25 mg tablet (Coreg) 25 mg PO BID #180 tab 07/13/20 pantoprazole 40 mg tablet,delayed 40 mg PO QAM #90 tab 07/13/20 release (Protonix) furosemide 20 mg tablet (Lasix) 20 mg PO QAM #90 tab 09/11/20 meclizine 25 mg tablet (Dramamine 25 mg PO TID PRN #30 tab 09/11/20 Less Drowsy) pramipexole 0.25 mg tablet 0.25 mg PO QPM PRN #90 tab 10/19/20 gabapentin 300 mg capsule See Rx Instructions .ROUTE 10/27/20 .COMPLEX #120 cap diclofenac sodium 1 % topical gel 2 g TOPICAL QID PRN #100 g 10/30/20 albuterol sulfate 90 mcg/actuation 1 inh INHALATION QID PRN #8.5 g 11/05/20 aerosol inhaler duloxetine 30 mg capsule,delayed 60 mg PO DAILY 11/15/20 release spironolactone 25 mg tablet 50 mg PO QAM 11/15/20 (Aldactone) lactulose 10 gram/15 mL (15 mL) 30 g PO BID 30 Days #2700 ml 11/18/20 oral solution Code Status & VTE Plan VTE Prophylaxis Plan VTE Prophylaxis will be ordered: Yes Supervising Physician Co-Signing Physician Notes Patient seen and examined, chart reviewed, case discussed with Dr. Pappas and I agree with his assessment and plan as documented above. In brief, patient is a 80-year-old female with multiple medical problems to include SANTOS with varices, COPD, diabetes, recent hospital admission for mild pancreatitis presenting with shortness of breath and hypoxia. Patient initially required BiPAP in the ER due to hypoxia. During my encounter she was on high flow nasal cannula, breathing comfortably with adequate oxygenation. On physical exam she is afebrile, hemodynamically stable, ill in appearance Skinwarm, dry, intact HEENTnormocephalic/atraumatic, pupils equal and reactive to light, moist mucous membranes, neck supple Heart+ S1, S2, regular, tachycardic with ectopy, no murmur/rubs/gallops Lungsequal air entry bilaterally, tachypneic, faint wheezes in bilateral bases Abdomen+ bowel sounds, soft, nontender, nondistended Extremitieswarm, well-perfused Labs and images reviewed. Significant for sodium of 128, T bili of 1.2, alk phos of 142 Assessment/[id number] female presenting with acute hypoxic respiratory failure. At this point uncertain etiology. Question COPD versus volume overloadpatient was recently admitted for pancreatitis. She is afebrile does not seem to have pneumonia Admit to medical Solu-Medrol, Xopenex Continue home diuretic agents. Consider additional Lasix dosing Remainder of plan as above Resident Activity Tracking Resident Involvement: Resident Care Provided Care Provided: Adult Hospital Medicine (1) Chronic back pain Back pain laterality: midline Back pain location: low back pain Sciatica presence: unspecified whether sciatica present Qualified Code(s): M54.5 - Low back pain; G89.29 - Other chronic pain
[2020-11-21] MEDS ORDERED: LORazepam 0.5 MG/1 ML VIAL IV STA (01:31)
[2020-11-21] MEDS ORDERED: carvediloL 25 MG TAB PO ONE (02:38)
[2020-11-21] MEDS ORDERED: POLYETHYLENE (MIRALAX) 17 GM PACK PO PRN (03:50)
[2020-11-21] MEDS ORDERED: ALUMINUM/MAGNESIUM SUSP 30 ML UDC PO PRN (03:50)
[2020-11-21] MEDS ORDERED: MAGNESIUM HYDROXIDE SUSP 30 ML UDC PO PRN (03:50)
[2020-11-21] MEDS ORDERED: MoRPHine SULFATE 2 MG/ML CARP IV PRN (03:50)
[2020-11-21] MEDS ORDERED: ONDANSETRON INJ 2 MG/ML 2 ML VIAL IV PRN (03:50)
[2020-11-21] MEDS ORDERED: NITROGLYCERIN SL 0.4 MG/TAB TAB SL PRN (03:50)
[2020-11-21] MEDS ORDERED: METOPROLOL TARTRATE 1 MG/ML VIAL IV STA (04:24)
[2020-11-21] MEDS: LEVOTHYROXINE SODIUM 125 MCG TABLET PO SCH (06:32)
[2020-11-21] MEDS: ENOXAPARIN INJ 40 MG/0.4 ML SYR SQ SCH ×2 (06:32→17:21)
[2020-11-21] MEDS ORDERED: traMADol HCL 50 MG TABLET PO STA (06:36)
[2020-11-21 07:04] LABS: Eosinophils # (auto) 0.01 K/uL (0-0.5); Eosinophils % (auto) 0.2 %; Hemoglobin 15.3 g/dL (12.0-16.0); Immature Granulocytes # (auto) 0.01 K/uL (0.00-0.02); Immature Granulocytes % (auto) 0.2 %; Lymphocytes # (auto) 0.71 K/uL (1.2-3.4); Lymphocytes % (auto) 10.9 %; Mean Corpuscular Hemoglobin 38.8 pg (25-34); Mean Corpuscular Volume 114.2 fL (80-100); Mean Platelet Volume 9.7 fL (7.4-10.4); Monocytes # (auto) 0.11 K/uL (0.11-0.59); Monocytes % (auto) 1.7 %; Neutrophils # (auto) 5.65 K/uL (1.4-6.5); Platelet Count 139 K/uL (130-400); RDW Standard Deviation 54.7 fL (36.4-46.3); Red Blood Count 3.94 M/uL (4.2-5.4); White Blood Count 6.49 K/uL (4.8-10.8)
[2020-11-21] MEDS: LEVALBUTEROL HCL 0.63 MG/3 ML NEB NEB SCH ×3 (07:04→19:09)
[2020-11-21 07:26] LABS: Macrocytosis Present
[2020-11-21] MEDS ORDERED: FUROSEMIDE 40 MG in SYRINGE 0 ML IV ONE (07:30)
[2020-11-21 07:39] LABS: BUN Creatinine Ratio 17.6 (10-20); Calcium 9.3 mg/dl (8.5-10.1); Creatinine Clr Calc Pharmacy 85.3 ml/min; Est GFR (African American) 98.6 ml/min; Magnesium 1.5 mg/dl (1.8-2.4); Phosphorus 3.5 mg/dl (2.5-4.9); Potassium 4.1 mmol/L (3.5-5.1)
[2020-11-21] MEDS: LIDOCAINE 5% 1 PATCH TD SCH (08:37)
[2020-11-21] MEDS: UMECLIDINIUM BROMIDE 62.5MCG/BLISTER 7 PUFFS/INHALER INH SCH (08:38)
[2020-11-21] MEDS: carvediloL 25 MG TAB PO SCH ×2 (08:38→20:36)
[2020-11-21] MEDS: GABAPENTIN 300 MG CAP PO SCH ×3 (08:38→20:36)
[2020-11-21] MEDS: DULoxetine HCL 60 MG CAP PO SCH (08:38)
[2020-11-21] MEDS: PRAMIPEXOLE DIHYDROCHLO 0.25 MG TAB PO PRN (08:38)
[2020-11-21] MEDS: PANTOprazole 40 MG TAB PO SCH (08:38)
[2020-11-21] MEDS: LACTULOSE SYRUP 30 GM/45 ML UDP PO SCH ×2 (08:38→20:38)
[2020-11-21] MEDS: SPIRONOLACTONE 25 MG TAB PO SCH (08:39)
--- NOTE | 2020-11-21 08:47 | CT Scan Report ---
CT chest diagnostic wo con CT DOSE: HISTORY: Shortness of breath. COPD exacerbation TECHNIQUE: Multiaxial CT images of the chest were performed without contrast. A dose lowering techni que was utilized adhering to the principles of ALARA. COMPARISON: Chest CT 06/28/2015. FINDINGS: There are severe compression deformities at T7 and L1. These are likely old. The T7 benson renetta deformity demonstrates 3 mm of retropulsion of the posterior inferior corner resulting in mild c entral canal narrowing at this level. Increase in size in the 3.2 x 1.7 cm irregular lesion within th e right lung apex. Therefore, this is consistent with a primary bronchogenic malignancy. Mild emphyse ma. The central airways are patent. Mild interstitial thickening which is likely chronic. A few bibas ilar linear densities consistent with subsegmental atelectasis. There is a new 1 cm groundglass nodul e within the right upper lobe on image 93 of series 4. This is also concerning for a primary bronchog enic malignancy along the adenocarcinoma spectrum. No suspicious lytic or blastic osseous lesions. Ci rrhotic liver with trace ascites is again noted. The spleen is mildly enlarged. Mild thickening of th e adrenal glands is likely chronic. This remains unchanged. Normal caliber thoracic aorta. No pleural or pericardial effusions. No mediastinal or hilar lymphadenopathy. IMPRESSION: 1. Increase in size in the 3.2 x 1.7 cm irregular lesion within the right lung apex. This is consiste nt with a primary bronchogenic malignancy. Follow-up pulmonary consultation recommended. 2. There is a new 1 cm groundglass nodule within the right upper lobe which is also concerning for a primary bronchogenic malignancy. 3. Additional chronic changes as described above. ACT 112: Positive. There are findings on this exam that require communication between the performing entity and the patient following Patient Test Result Information Act ([place] Act 112) guidelines. Electronically signed by: Ernie Silva M.D. 11/21/2020 8:46 AM
[2020-11-21] MEDS ORDERED: methylPREDNISolone 125 MG/2 ML VIAL IV SCH (09:00)
[2020-11-21] MEDS ORDERED: FUROSEMIDE 20 MG TAB PO SCH (09:00)
[2020-11-21] MEDS ORDERED: methylPREDNISolone 125 MG in SYRINGE 0 ML IV SCH (09:00)
[2020-11-21] MEDS ORDERED: TIOTROPIUM BROMIDE 5 PUFF/90 MCG INH INH SCH (09:00)
--- NOTE | 2020-11-21 09:14 | CT Scan Report ---
ABDOMEN AND PELVIS CT WITHOUT CONTRAST CT DOSE: 7.30 mGy.cm HISTORY: Generalized abdominal pain TECHNIQUE: Multiaxial CT images of the abdomen and pelvis were performed without contrast. A dose lo wering technique was utilized adhering to the principles of ALARA. COMPARISON STUDY: Abdomen and pelvis CT 04/25/2019. FINDINGS: Old severe compression deformity at L1. There is a subacute moderate compression deformity at L3. No significant retropulsion. Old mild anterior wedge-shaped compression deformity is at T11 an d T12 are also noted. No pneumoperitoneum. No pneumatosis. There is a left dynamic hip screw. Cirrhot ic liver with trace perihepatic ascites is again noted. Prior cholecystectomy. This likely accounts f or the common bile duct dilatation which remains unchanged. The spleen is normal in size. Normal adre nal glands. No hydronephrosis. The unenhanced pancreas is unremarkable. There is an ectatic abdominal aorta measuring up to 2.8 cm in diameter. Trace mesenteric and pelvic fluid is noted. The bladder is decompressed by Angel catheter. Prior cholecystectomy. The visualized appendix is unremarkable. Subo ptimal evaluation for bowel pathology due to the lack of intravenous and oral contrast. However, ther e is no definite bowel wall thickening or obstruction. Colonic diverticulosis. No evidence for acute diverticulitis. No retroperitoneal or pelvic lymphadenopathy. IMPRESSION: 1. Cirrhotic liver with trace ascites. 2. No renal or ureteral stones. No hydronephrosis. 3. Normal appendix. 4. The bladder is decompressed by a Angel catheter. 5. Subacute L3 compression fracture. ACT 112: Negative or not required by law. Electronically signed by: Ernie Silva M.D. 11/21/2020 9:12 AM
[2020-11-21] MEDS ORDERED: OPTIRAY 320 125ml IV ONE (10:08)
--- NOTE | 2020-11-21 10:17 | XRay Report ---
XR chest 1V portable HISTORY: Atypical Chest Pain COMPARISON: Chest 11/15/2020. FINDINGS: Increase in size in the 3.3 cm right apical irregular density. No new focal lung consolidat ions to suggest pneumonia. There are low lung volumes. Chronic interstitial thickening and mild cardi omegaly persists. No pneumothorax. No pleural fusions. IMPRESSION: Increase in size in the 3.3 cm right apical irregular density. This is highly suspicious for a primar y bronchogenic malignancy. ACT 112: Negative or not required by law. Electronically signed by: Ernie Silva M.D. 11/21/2020 10:16 AM
--- NOTE | 2020-11-21 10:30 | CT Scan Report ---
CT angio chest PE protocol CT DOSE: 504.06 mGycm HISTORY: 80 years-old Female with PE,hypoxia,likely lung CA. Acute hypoxia TECHNIQUE: Multiple CTA images of the chest were obtained after the intravenous administration of 120 ml Optiray. Coronal and sagittal MIPS were obtained from the axial data set and were submitted for review. All measurements were obtained according to NASCET criteria. A dose lowering technique was u tilized adhering to the principles of ALARA. COMPARISON: Chest CT and CT abdomen and pelvis of same day, chest CT 06/28/2015 FINDINGS: CTA: moderate cardiomegaly with moderate coronary artery and mitral annular calcifications. Moderate ather osclerosis of the thoracic aorta without aneurysm or dissection. There is patency of the imaged great vessels with descending thoracic aortic tortuosity. Unremarkable pulmonary artery. No pulmonary embo li identified. CT CHEST: No thyroid nodule or adenopathy. 3.2 x 1.7 cm irregular nodular lesion within the right lung apex has increased in size from 2016 where it measured 2.8 x 1.7 cm. Subsegmental bibasilar atelectasis. Grou ndglass nodule within the right upper lobe measuring 1 cm on image 143 is new from 2016. Mild chronic interstitial lung disease redemonstrated. Central airways are patent. No acute process of the imaged upper abdomen. Cirrhotic liver with trace perihepatic ascites. The spl een appears mildly enlarged. Unremarkable soft tissues. No acute fracture identified. Degenerative ch anges of the shoulders and spine. Severe compression deformities at T7 and L1 appear chronic. 3 mm re tropulsion of the T7 compression fracture. The T7 fracture is new from 2016. IMPRESSION: 1. Cardiomegaly without pulmonary emboli. 2. 3.2 x 1.7 cm irregular nodule of the right upper lobe has increased in size from 2016 suggestive o f a low-grade primary bronchogenic malignancy. 3. No adenopathy. 4. 1 cm groundglass nodule within the right upper lobe is new from 2016. 5. Additional findings as above. ACT 112: Negative or not required by law. The above report was generated using voice recognition software. It may contain grammatical, syntax o r spelling errors. Electronically signed by: Fadi Ugalde M.D. 11/21/2020 10:28 AM
--- NOTE | 2020-11-21 11:07 | Hospitalist Progress Note ---
Date of Service November 21, 2020 Assessment & Plan (1) Acute respiratory failure with hypoxia and hypercapnia: Plan: Bernarda Lara is a 80-year-old female with past medical history significant for chronic back pain, nonalcoholic cirrhosis with varices, COPD, and type 2 diabetes; who presents for concerns of shortness of breath with low oxygen saturation while at home. She was just discharged from hospital ater short stay for mild pancreatitis where she received IVFs and had diuretics held briefly. With hypoxia, tachycardia, CXR and CHest CT with lung mass likely malignant, but no pleural effusions or infiltrate Some reported wheezing on admissions With bibasilar crackles and continued tachypnea on exam this AM, weaned from BiPAP to HFNC to Blow by face mask this AM No chest pain, trop neg, ECG with sinus tach, PACs but no significant ischemic changes -checked CTA CHest-neg for PE Likely COPD exacerbation and acute on chronic diastolic CHF. Last ECHO 04/2019 with preserved EF -Continues to utilize/smoke tobacco (29-[id number] smoking history) Procal elevated but no real source of infection found, especially not in lungs- no abx at this time -COVID-19 negative -give IV lasix now and continue home po aldactone -continue Solu-Medrol but decrease dose to 60 mg q12h -Xopenex q6R -Wean oxygen as tolerated -advised cessation of smoking (2) COPD (chronic obstructive pulmonary disease): Plan: scheduled nebs smoking cessation counseling given started Incruse ELlipta IV steroids as above (3) Sinus tachycardia: Plan: Tachycardia: -Seemingly increasing tachycardia following administration of albuterol but concern for PE given recent hospitalization and hypoxia --> CTA chest neg for PE Tachycardia now improved -Potentially reactive in nature versus missed evening dose carvedilol -Seemingly improved following administration of Coreg -Continue to monitor on telemetry (4) Hyponatremia: Plan: -Sodium of 128 on admission, baseline around 131, now down to 126 likely volume overload related with cirrhosis, CHF -diurese with IV lasix bid today -follow BMP in AM (5) Chronic back pain: Plan: nothing acute continue diclofenac topical has known compression deformities and seen again here on CT tylenol prn continue CYmbalta and gabapentin, lidocaine patch avoid opioids due to h/o dependence and has since been weaned off (6) Hypertension: Plan: BP controlled -Continue Coreg 25 mg BID, and aldactone, IV lasix (7) Hypothyroidism: Plan: TSH normal at 1.9 in 04/2020 continue home LT4 (8) Diabetes type 2, controlled: Plan: not on meds at home most recent A1C only 5.5% here on IV steroids--> add SSI, accuchecks check A1C in AM (9) Current tobacco use: Plan: counseled on cessation (10) Depression with anxiety: Plan: continue CYmbalta (11) Elevated MCV: Plan: no anemia MCV 114 likely secondary to liver disease (12) 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: Plan: Portal hypertension with varices: -Follows with [facility] locally -Continue lactulose twice daily, spironolactone daily, and Lasix no encephalopathy (13) Lung nodule: Plan: noted on CT chest and addressed previous admission-likely malignant and she declines further workup (14) Obesity: Plan: BMI 40.6 needs weight loss (15) Intertrigo: Plan: in groins bilat with ulceration left groin start antifungal cream Kaltistat to be applied (16) Chronic reflux esophagitis: Plan: continue PPI (17) Hypomagnesemia: Plan: replace with 2 grams IV mag check level in AM (18) DVT prophylaxis: Plan: DVT ppx: Lovenox 40 twice daily CODE STATUS: DNR/DNI Admission and Anticipated Discharge Date Admission Date: November 21, 2020 Subjective having SOB and weaned from HFNC to face mask O2 35L blow by. Feels slightly better than las tnight but still tachypneic. Reports feeling like has to have a BM. Is making urine in Angel. No abd pain, no chest pain CTA CHest done today neg for PE. Tele with NSR, rates 80-90s Review of Systems Review of Systems: All systems reviewed & are unremarkable except as noted in HPI & below Physical Exam Constitutional: WD/WN, vitals as above Eyes: + anicteric sclerae Neck: trachea midline, no thyromegaly Respiratory: + tachypneic; no cough Auscultation: + crackles (bibasilar); no rhonchi and no wheezes Cardiovascular: RRR, no murmur, no edema Chest (Breasts): Chest: normal inspection of chest Gastrointestinal (Abdomen): normal bowel sounds, soft, nontender, no hepatosplenomegaly Musculoskeletal: Extremities: extremities normal to inspection; no cyanosis and no clubbing Skin: + ulcer (bilat groin L>R with erythema,ulcerated skin w/yellow exudate) Neurologic: moves all extremities and awake; no focal motor deficits Psychiatric: A+Ox3, euthymic affect Lymphatic: no lymphedema Results & Data Results & Data ([facility]) Vital Signs (Past 12 Hours) Vital Signs Temp Pulse Pulse Pulse Resp BP BP 11/21/20 08:35 36.8 C 89 24 143/93 H 11/21/20 07:07 87 24 11/21/20 04:25 91 H 11/21/20 03:53 36.9 C 92 H 24 130/83 11/21/20 03:50 11/21/20 03:30 36.8 C 130 H 26 H 155/60 H 11/21/20 03:20 90 24 11/21/20 02:32 36.8 C 145 H 30 H 11/21/20 01:50 129 H 20 11/21/20 01:40 110 H 19 11/21/20 01:30 123 H 24 11/21/20 01:20 119 H 18 11/21/20 01:18 120 H 15 11/21/20 00:07 126 H 28 H Pulse Ox Pulse Ox 11/21/20 08:35 95 11/21/20 07:07 95 11/21/20 04:25 11/21/20 03:53 97 11/21/20 03:50 97 11/21/20 03:30 98 11/21/20 03:20 96 11/21/20 02:32 11/21/20 01:50 94 11/21/20 01:40 99 11/21/20 01:30 98 11/21/20 01:20 94 11/21/20 01:18 95 11/21/20 00:07 96 Laboratory Results 11/21/20 11/21/20 11/21/20 Range/Units 06:23 06:23 06:23 WBC 6.49 (4.8-10.8) K/uL RBC 3.94 L (4.2-5.4) M/uL Hgb 15.3 (12.0-16.0) g/dL Hct 45.0 (37-47) % MCV 114.2 H (80-100) fL MCH 38.8 H (25-34) pg MCHC 34.0 (32-36) g/dL RDW Std Deviation 54.7 H (36.4-46.3) fL RDW Coeff of Mile 13.0 (11.5-14.5) % Plt Count 139 (130-400) K/uL MPV 9.7 (7.4-10.4) fL Immature Gran % (Auto) 0.2 % Neut % (Auto) 87.0 % Lymph % (Auto) 10.9 % [place] % (Auto) 1.7 % Eos % (Auto) 0.2 % Baso % (Auto) 0.0 % Neut # (Auto) 5.65 (1.4-6.5) K/uL Lymph # (Auto) 0.71 L (1.2-3.4) K/uL [place] # (Auto) 0.11 (0.11-0.59) K/uL Eos # (Auto) 0.01 (0-0.5) K/uL Baso # (Auto) 0.00 (0-0.2) K/uL Immature Gran # (Auto) 0.01 (0.00-0.02) K/uL Hypersegmented Neuts 1+ Polychromasia Macrocytosis Present APTT (21.0-31.0) Seconds PTT Ratio VBG pH (7.36-7.41) VBG pCO2 (38-50) mmHg VBG pO2 mmHg VBG HCO3 mmol/L VBG O2 Saturation % VBG Base Excess mEq/L Sodium 126 L (136-145) mmol/L Potassium 4.1 (3.5-5.1) mmol/L Chloride 88 L (98-107) mmol/L Carbon Dioxide 31 (21-32) mmol/L Anion Gap 7.0 (3-11) BUN 11 (7-18) mg/dl Creatinine 0.65 (0.6-1.2) mg/dl Est Cr Clr Drug Dosing 85.3 Est GFR ( Amer) 98.6 ml/min Est GFR (Non-Af Amer) 85.0 ml/min BUN/Creatinine Ratio 17.6 (10-20) Glucose 166 H (70-99) mg/dl POC Glucose (70-99) mg/dl Lactate (0.4-2.0) mmol/L Calcium 9.3 (8.5-10.1) mg/dl Phosphorus 3.5 (2.5-4.9) mg/dl Magnesium 1.5 L (1.8-2.4) mg/dl Total Bilirubin (0.2-1) mg/dl AST (15-37) U/L ALT (12-78) U/L Alkaline Phosphatase (45-117) U/L Total Creatine Kinase (26-192) U/L CK-MB (CK-2) (0.5-3.6) ng/ml CK/CKMB % Calc Troponin I (0-0.045) ng/ml NT-Pro-B Natriuret Pep (0-1800) pg/ml Total Protein (6.4-8.2) gm/dl Albumin (3.4-5.0) gm/dl Globulin (2.5-4.0) gm/dl Albumin/Globulin Ratio (0.9-2) Lipase (73-393) U/L Procalcitonin 1.54 H (0-0.5) ng/ml COVID-19 Eval Order SARS-CoV-2 (PCR) (Negative) 11/21/20 11/21/20 11/20/20 Range/Units 05:04 01:39 23:19 WBC (4.8-10.8) K/uL RBC (4.2-5.4) M/uL Hgb (12.0-16.0) g/dL Hct (37-47) % MCV (80-100) fL MCH (25-34) pg MCHC (32-36) g/dL RDW Std Deviation (36.4-46.3) fL RDW Coeff of Mile (11.5-14.5) % Plt Count (130-400) K/uL MPV (7.4-10.4) fL Immature Gran % (Auto) % Neut % (Auto) % Lymph % (Auto) % [place] % (Auto) % Eos % (Auto) % Baso % (Auto) % Neut # (Auto) (1.4-6.5) K/uL Lymph # (Auto) (1.2-3.4) K/uL [place] # (Auto) (0.11-0.59) K/uL Eos # (Auto) (0-0.5) K/uL Baso # (Auto) (0-0.2) K/uL Immature Gran # (Auto) (0.00-0.02) K/uL Hypersegmented Neuts Polychromasia Macrocytosis APTT (21.0-31.0) Seconds PTT Ratio VBG pH (7.36-7.41) VBG pCO2 (38-50) mmHg VBG pO2 mmHg VBG HCO3 mmol/L VBG O2 Saturation % VBG Base Excess mEq/L Sodium (136-145) mmol/L Potassium (3.5-5.1) mmol/L Chloride (98-107) mmol/L Carbon Dioxide (21-32) mmol/L Anion Gap (3-11) BUN (7-18) mg/dl Creatinine (0.6-1.2) mg/dl Est Cr Clr Drug Dosing Est GFR ( Amer) ml/min Est GFR (Non-Af Amer) ml/min BUN/Creatinine Ratio (10-20) Glucose (70-99) mg/dl POC Glucose 181 H 142 H (70-99) mg/dl Lactate 1.6 (0.4-2.0) mmol/L Calcium (8.5-10.1) mg/dl Phosphorus (2.5-4.9) mg/dl Magnesium (1.8-2.4) mg/dl Total Bilirubin (0.2-1) mg/dl AST (15-37) U/L ALT (12-78) U/L Alkaline Phosphatase (45-117) U/L Total Creatine Kinase (26-192) U/L CK-MB (CK-2) (0.5-3.6) ng/ml CK/CKMB % Calc Troponin I (0-0.045) ng/ml NT-Pro-B Natriuret Pep (0-1800) pg/ml Total Protein (6.4-8.2) gm/dl Albumin (3.4-5.0) gm/dl Globulin (2.5-4.0) gm/dl Albumin/Globulin Ratio (0.9-2) Lipase (73-393) U/L Procalcitonin (0-0.5) ng/ml COVID-19 Eval Order SARS-CoV-2 (PCR) (Negative) 11/20/20 11/20/20 11/20/20 Range/Units 23:18 23:18 23:18 WBC (4.8-10.8) K/uL RBC (4.2-5.4) M/uL Hgb (12.0-16.0) g/dL Hct (37-47) % MCV (80-100) fL MCH (25-34) pg MCHC (32-36) g/dL RDW Std Deviation (36.4-46.3) fL RDW Coeff of Mile (11.5-14.5) % Plt Count (130-400) K/uL MPV (7.4-10.4) fL Immature Gran % (Auto) % Neut % (Auto) % Lymph % (Auto) % [place] % (Auto) % Eos % (Auto) % Baso % (Auto) % Neut # (Auto) (1.4-6.5) K/uL Lymph # (Auto) (1.2-3.4) K/uL [place] # (Auto) (0.11-0.59) K/uL Eos # (Auto) (0-0.5) K/uL Baso # (Auto) (0-0.2) K/uL Immature Gran # (Auto) (0.00-0.02) K/uL Hypersegmented Neuts Polychromasia Macrocytosis APTT 27.0 (21.0-31.0) Seconds PTT Ratio 1.0 VBG pH 7.36 (7.36-7.41) VBG pCO2 64 H (38-50) mmHg VBG pO2 35 mmHg VBG HCO3 35 mmol/L VBG O2 Saturation 60.6 % VBG Base Excess 7.2 mEq/L Sodium 128 L (136-145) mmol/L Potassium (3.5-5.1) mmol/L Chloride 90 L (98-107) mmol/L Carbon Dioxide 35 H (21-32) mmol/L Anion Gap 3.0 (3-11) BUN 10 (7-18) mg/dl Creatinine 0.74 (0.6-1.2) mg/dl Est Cr Clr Drug Dosing Not Reportable Est GFR ( Amer) 89.9 ml/min Est GFR (Non-Af Amer) 77.6 ml/min BUN/Creatinine Ratio 13.7 (10-20) Glucose 102 H (70-99) mg/dl POC Glucose (70-99) mg/dl Lactate (0.4-2.0) mmol/L Calcium 9.2 (8.5-10.1) mg/dl Phosphorus (2.5-4.9) mg/dl Magnesium (1.8-2.4) mg/dl Total Bilirubin 1.2 H (0.2-1) mg/dl AST (15-37) U/L ALT 42 (12-78) U/L Alkaline Phosphatase 142 H (45-117) U/L Total Creatine Kinase (26-192) U/L CK-MB (CK-2) 1.6 (0.5-3.6) ng/ml CK/CKMB % Calc TNP Troponin I < 0.015 (0-0.045) ng/ml NT-Pro-B Natriuret Pep 598 (0-1800) pg/ml Total Protein 8.0 (6.4-8.2) gm/dl Albumin 3.1 L (3.4-5.0) gm/dl Globulin 4.9 H (2.5-4.0) gm/dl Albumin/Globulin Ratio 0.6 L (0.9-2) Lipase 168 (73-393) U/L Procalcitonin (0-0.5) ng/ml COVID-19 Eval Order SARS-CoV-2 (PCR) (Negative) 11/20/20 11/20/20 11/20/20 Range/Units 23:18 22:56 22:56 WBC 9.40 (4.8-10.8) K/uL RBC 3.69 L (4.2-5.4) M/uL Hgb 14.5 (12.0-16.0) g/dL Hct 42.5 (37-47) % MCV 115.2 H (80-100) fL MCH 39.3 H (25-34) pg MCHC 34.1 (32-36) g/dL RDW Std Deviation 55.1 H (36.4-46.3) fL RDW Coeff of Mile 13.1 (11.5-14.5) % Plt Count 168 (130-400) K/uL MPV 9.5 (7.4-10.4) fL Immature Gran % (Auto) 0.3 % Neut % (Auto) 73.3 % Lymph % (Auto) 13.8 % [place] % (Auto) 11.4 % Eos % (Auto) 1.0 % Baso % (Auto) 0.2 % Neut # (Auto) 6.89 H (1.4-6.5) K/uL Lymph # (Auto) 1.30 (1.2-3.4) K/uL [place] # (Auto) 1.07 H (0.11-0.59) K/uL Eos # (Auto) 0.09 (0-0.5) K/uL Baso # (Auto) 0.02 (0-0.2) K/uL Immature Gran # (Auto) 0.03 H (0.00-0.02) K/uL Hypersegmented Neuts 1+ Polychromasia 1+ Macrocytosis Present APTT (21.0-31.0) Seconds PTT Ratio VBG pH (7.36-7.41) VBG pCO2 (38-50) mmHg VBG pO2 mmHg VBG HCO3 mmol/L VBG O2 Saturation % VBG Base Excess mEq/L Sodium (136-145) mmol/L Potassium (3.5-5.1) mmol/L Chloride (98-107) mmol/L Carbon Dioxide (21-32) mmol/L Anion Gap (3-11) BUN (7-18) mg/dl Creatinine (0.6-1.2) mg/dl Est Cr Clr Drug Dosing Est GFR ( Amer) ml/min Est GFR (Non-Af Amer) ml/min BUN/Creatinine Ratio (10-20) Glucose (70-99) mg/dl POC Glucose (70-99) mg/dl Lactate (0.4-2.0) mmol/L Calcium (8.5-10.1) mg/dl Phosphorus (2.5-4.9) mg/dl Magnesium (1.8-2.4) mg/dl Total Bilirubin (0.2-1) mg/dl AST (15-37) U/L ALT (12-78) U/L Alkaline Phosphatase (45-117) U/L Total Creatine Kinase (26-192) U/L CK-MB (CK-2) (0.5-3.6) ng/ml CK/CKMB % Calc Troponin I (0-0.045) ng/ml NT-Pro-B Natriuret Pep (0-1800) pg/ml Total Protein (6.4-8.2) gm/dl Albumin (3.4-5.0) gm/dl Globulin (2.5-4.0) gm/dl Albumin/Globulin Ratio (0.9-2) Lipase (73-393) U/L Procalcitonin (0-0.5) ng/ml COVID-19 Eval Order Covid19 at [facility] SARS-CoV-2 (PCR) NEGATIVE (Negative) PG Care Time/CCT Total # of Minutes Spent Total Time Spent with Patient: Total time spent is greater than 50% in coordination of care (as documented) at patient's floor/unit and/or counseling patient: Coding Level of Care Code None Diagnoses Acute respiratory failure with hypoxia and hypercapnia J96.01; J96.02 COPD (chronic obstructive pulmonary disease) J44.9 Hyponatremia E87.1 Chronic back pain M54.5; G89.29 Back pain laterality: midline Back pain location: low back pain Sciatica presence: unspecified whether sciatica present Hypertension I10 Hypothyroidism E03.9 Diabetes type 2, controlled E11.9 Sinus tachycardia R00.0 Current tobacco use Z72.0 Depression with anxiety F41.8 Elevated MCV R71.8 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
[2020-11-21] MEDS ORDERED: GLUCOSE 10 TABS/TUBE PO PRN (11:28)
[2020-11-21] MEDS ORDERED: CARBOHYDRATES FOR HYPOGLYCEMIA PO PRN (11:28)
[2020-11-21] MEDS ORDERED: GLUCAGON FOR INJ 1 MG VIAL SQ PRN (11:28)
[2020-11-21] MEDS ORDERED: DEXTROSE 50% 50 ML SYRINGE IV PRN (11:28)
[2020-11-21] MEDS ORDERED: GLUCOSE 40% GEL 15 GM TUBE PO PRN (11:28)
--- NOTE | 2020-11-21 11:41 | Electrocardiogram Report ---
Test Reason : Blood Pressure : / mmHG Vent. 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
--- NOTE | 2020-11-21 11:55 | Electrocardiogram Report ---
Test Reason : Blood Pressure : / mmHG Vent. 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 rate has increased BY 46 BPM Confirmed by Cm Olivarez ([id number]) on 11/21/2020 11:54:35 AM Referred By: REFERRED SELF Confirmed By:Cm Olivarez
[2020-11-21] MEDS: MAGNESIUM SULFATE / D5W 1 GM/100 ML BAG IV SCH ×2 (13:39→16:32)
[2020-11-21] MEDS: INSULIN ASPART 100 UNITS/ML 3 ML PEN SC SCH ×3 (15:08→20:36)
[2020-11-21] MEDS: FUROSEMIDE 40 MG in SYRINGE 0 ML IV SCH (17:20)
[2020-11-21] MEDS: methylPREDNISolone 60 MG in SYRINGE 0 ML IV SCH (20:55)
--- NOTE | 2020-11-21 23:08 | Billing Data ---
Date of Service November 21, 2020 Coding Level of Care Code 60765 Initial Inpt Care Lvl 3
[2020-11-22] MEDS: LEVALBUTEROL HCL 0.63 MG/3 ML NEB NEB SCH ×4 (00:31→19:51)
[2020-11-22] MEDS: ENOXAPARIN INJ 40 MG/0.4 ML SYR SQ SCH ×2 (06:20→17:42)
[2020-11-22] MEDS: LEVOTHYROXINE SODIUM 125 MCG TABLET PO SCH (06:21)
[2020-11-22 06:45] LABS: Hemoglobin 14.1 g/dL (12.0-16.0); Immature Granulocytes # (auto) 0.03 K/uL (0.00-0.02); Immature Granulocytes % (auto) 0.2 %; Lymphocytes # (auto) 0.85 K/uL (1.2-3.4); Lymphocytes % (auto) 6.6 %; Mean Corpuscular Hemoglobin 38.4 pg (25-34); Mean Corpuscular Hgb Conc 33.6 g/dL (32-36); Mean Corpuscular Volume 114.4 fL (80-100); Mean Platelet Volume 9.4 fL (7.4-10.4); Monocytes # (auto) 0.86 K/uL (0.11-0.59); Monocytes % (auto) 6.7 %; Neutrophils # (auto) 11.13 K/uL (1.4-6.5); Neutrophils % (auto) 86.5 %; Platelet Count 148 K/uL (130-400); RDW Coefficient of Variation 13.2 % (11.5-14.5); RDW Standard Deviation 55.4 fL (36.4-46.3); Red Blood Count 3.67 M/uL (4.2-5.4); White Blood Count 12.87 K/uL (4.8-10.8)
[2020-11-22 07:05] LABS: Macrocytosis Present
[2020-11-22 07:20] LABS: Albumin Level 2.8 gm/dl (3.4-5.0); BUN Creatinine Ratio 26.5 (10-20); Calcium 9.4 mg/dl (8.5-10.1); Creatinine Clr Calc Pharmacy 73.1 ml/min; Est GFR (African American) 87.1 ml/min; Est GFR (Non-African American) 75.1 ml/min; Magnesium 2.1 mg/dl (1.8-2.4); Potassium 4.1 mmol/L (3.5-5.1)
[2020-11-22 07:26] LABS: Albumin Globulin Ratio 0.6 (0.9-2); Bilirubin,Total 0.7 mg/dl (0.2-1); Globulin 4.6 gm/dl (2.5-4.0); Phosphorus 3.3 mg/dl (2.5-4.9); Total Protein 7.4 gm/dl (6.4-8.2)
[2020-11-22] MEDS: INSULIN ASPART 100 UNITS/ML 3 ML PEN SC SCH ×4 (08:30→20:13)
[2020-11-22] MEDS: methylPREDNISolone 60 MG in SYRINGE 0 ML IV SCH ×2 (08:53→20:53)
[2020-11-22] MEDS: MECLIZINE HCL 25 MG TAB PO PRN (08:53)
[2020-11-22] MEDS: FUROSEMIDE 40 MG in SYRINGE 0 ML IV SCH ×2 (08:53→17:41)
[2020-11-22] MEDS: GABAPENTIN 300 MG CAP PO SCH ×3 (08:54→20:11)
[2020-11-22] MEDS: carvediloL 25 MG TAB PO SCH ×2 (08:54→20:11)
[2020-11-22] MEDS: PANTOprazole 40 MG TAB PO SCH (08:55)
[2020-11-22] MEDS: DULoxetine HCL 60 MG CAP PO SCH (08:56)
[2020-11-22] MEDS: LACTULOSE SYRUP 30 GM/45 ML UDP PO SCH ×2 (08:56→20:11)
[2020-11-22] MEDS: LIDOCAINE 5% 1 PATCH TD SCH (08:56)
[2020-11-22] MEDS: UMECLIDINIUM BROMIDE 62.5MCG/BLISTER 7 PUFFS/INHALER INH SCH (08:57)
[2020-11-22] MEDS: SPIRONOLACTONE 25 MG TAB PO SCH (08:57)
--- NOTE | 2020-11-22 09:28 | Electrocardiogram Report ---
Test Reason : Blood Pressure : / mmHG Vent. 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
[2020-11-22] MEDS: ACETAMINOPHEN 325 MG TAB PO PRN (11:50)
[2020-11-22 13:22] LABS: Appearance Urine Clear (Clear); Bacteria Urine Automated Negative (Negative); Bilirubin Urine Negative (Negative); Blood Urine 2+ (Negative); Color Urine Dark Yellow; Epithelial Cell Urine Auto >30 /lpf (0-5); Glucose Urine UA Negative (Negative); Ketones Urine Negative (Negative); Leukocyte Esterase Urine 1+ (Negative); Nitrite Urine Negative (Negative); Protein Urine Negative (Negative); Specific Gravity Urine 1.017 (1.000-1.030); Urobilinogen Urine Negative (Negative)
[2020-11-22 13:46] LABS: Cast Urine Automated >30 /lpf (0-5)
[2020-11-22] MEDS ORDERED: VANCOMYCIN CONSULT ACTIVE PRN (13:51)
[2020-11-22] MEDS ORDERED: VANCOMYCIN HCL 1,000 MG in SODIUM CHLORIDE 0.9% 250 ML IV SCH (14:00)
--- NOTE | 2020-11-22 14:12 | Hospitalist Progress Note ---
Date of Service November 22, 2020 Assessment & Plan (1) Acute respiratory failure with hypoxia and hypercapnia: Plan: Bernarda Lara is a 80-year-old female with past medical history significant for chronic back pain, nonalcoholic cirrhosis with varices, COPD, and type 2 diabetes; who presents for concerns of shortness of breath with low oxygen saturation while at home. She was just discharged from hospital ater short stay for mild pancreatitis where she received IVFs and had diuretics held briefly. Presented with hypoxia, tachycardia, CXR and CHest CT without contrast with lung mass likely malignant, but no pleural effusions or infiltrate Some reported wheezing on admission With bibasilar crackles and continued tachypnea on exam, but has been weaned from BiPAP to HFNC to 5 L nasal cannula today after IV diuresis and IV steroids No chest pain, trop neg, ECG with sinus tach, PACs but no significant ischemic changes CTA CHest-neg for PE Likely COPD exacerbation and acute on chronic diastolic CHF As the cause Last ECHO 04/2019 with preserved EF -Continues to utilize/smoke tobacco ([id number] smoking history) Procal elevated but no real source of infection found, no pneumonia -COVID-19 negative VBG upon admission with evidence of CO2 retention ABG with hypoxemia but no hypercapnia on 11/22 -Continue Lasix 40 mg IV twice daily and continue home po aldactone -continue Solu-Medrol but decrease dose to 40 mg q12h -Xopenex q6R -Wean oxygen as tolerated -advised cessation of smoking (2) COPD (chronic obstructive pulmonary disease): Plan: scheduled nebs smoking cessation counseling given started Incruse ELlipta IV steroids as above (3) Sinus tachycardia: Plan: Tachycardia: -Seemingly increasing tachycardia following administration of albuterol but concern for PE given recent hospitalization and hypoxia --> CTA chest neg for PE Tachycardia now improved -Potentially reactive in nature versus missed evening dose carvedilol -Seemingly improved following administration of Coreg -Continue to monitor on telemetry (4) Bacteremia: Plan: Now growing 1/4 bottles with gram-positive cocci in clusters PCR negative for Staph aureus or MRSA Most likely a contaminant However, procalcitonin was elevated upon admission and remains elevated today. Urinalysis appears contaminated Unclear if this could potentially be a true bacteremia Start IV vancomycin Follow blood cultures Repeat blood culture on the morning of 11/23 to ensure stability Of note, she does have open wounds in her groins bilaterally which could be a source of bacteremia (5) Hyponatremia: Plan: -Sodium of 128 on admission, baseline around 131, now stable at 127 likely volume overload related with cirrhosis, CHF -Continue to diurese with IV lasix bid today -follow BMP in AM (6) Chronic back pain: Plan: Has chronic back pain has known compression deformities and seen again here on CT continue CYmbalta and gabapentin, lidocaine patch, Voltaren gel, and Tylenol as needed avoid opioids due to h/o dependence and has since been weaned off (7) Hypertension: Plan: BP controlled -Continue Coreg 25 mg BID, and aldactone, IV lasix (8) Hypothyroidism: Plan: TSH normal at 1.9 in 04/2020 continue home LT4 (9) Diabetes type 2, controlled: Plan: not on meds at home Hemoglobin A1c only 5.8% but with hyperglycemia here secondary to corti costeroids Continue sliding scale insulin and tighten down correction factor and carb ratio (10) Current tobacco use: Plan: counseled on cessation (11) Depression with anxiety: Plan: continue CYmbalta (12) Elevated MCV: Plan: no anemia MCV 114 likely secondary to liver disease (13) 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: Plan: Portal hypertension with varices: -[facility] -Continue lactulose but increase to 3 times daily as she is constipated and ammonia is elevated and she is drowsy at times Continue spironolactone daily, and Lasix Continue beta-linnette (14) Lung nodule: Plan: noted on CT chest and addressed previous admission-likely malignant and she declines further workup (15) Obesity: Plan: BMI 40.6 needs weight loss (16) Intertrigo: Plan: in groins bilat with ulceration left groin start antifungal cream Wound care nurse consult placed (17) Chronic reflux esophagitis: Plan: continue PPI (18) Hypomagnesemia: Plan: Replaced and resolved (19) DVT prophylaxis: Plan: DVT ppx: Lovenox 40 twice daily CODE STATUS: DNR/DNI Discussed her care with her son at the bedside Patient is now agreeable to rehab placement whereas she has declined this in previous hospitalization Admission and Anticipated Discharge Date Admission Date: November 21, 2020 Subjective Patient seen twice today. The first time she was on the bedpan trying to move her bowels but could not. Nursing reports that patient was drowsy today and ABG was obtained which did not show hypercapnia. Her ammonia level was elevated at 53. The patient did not seem confused to me. She still remains on 6 L nasal cannula and is a bit tachypneic. She feels that her shortness of breath is improving. She denies any abdominal pains. Telemetry with normal sinus rhythm with rates in the 60s to 70s Review of Systems Review of Systems: All systems reviewed & are unremarkable except as noted in HPI & below Physical Exam Constitutional: WD/WN, vitals as above Eyes: + anicteric sclerae Neck: trachea midline, no thyromegaly Respiratory: + tachypneic; no cough Auscultation: + crackles (bibasilar); no rhonchi and no wheezes Cardiovascular: RRR, no murmur, no edema Chest (Breasts): Chest: normal inspection of chest Gastrointestinal (Abdomen): normal bowel sounds, soft, nontender, no hepatosplenomegaly Musculoskeletal: Extremities: extremities normal to inspection; no cyanosis and no clubbing Skin: + ulcer (bilat groin L>R with erythema,ulcerated skin w/yellow exudate) Neurologic: moves all extremities and awake; no focal motor deficits Psychiatric: A+Ox3, euthymic affect Lymphatic: no lymphedema Results & Data Results & Data ([facility]) Vital Signs (Past 12 Hours) Vital Signs Temp Pulse Pulse Resp BP Pulse Ox 11/22/20 13:05 72 93 11/22/20 11:48 37.1 C 67 18 100/61 91 11/22/20 08:40 67 11/22/20 07:30 36.9 C 69 21 117/70 93 11/22/20 07:00 71 16 93 11/22/20 03:30 37.2 C 66 22 115/69 92 11/22/20 02:55 66 26 H 92 Laboratory Results 11/22/20 11/22/20 11/22/20 Range/Units 20:10 16:22 14:26 WBC (4.8-10.8) K/uL RBC (4.2-5.4) M/uL Hgb (12.0-16.0) g/dL Hct (37-47) % MCV (80-100) fL MCH (25-34) pg MCHC (32-36) g/dL RDW Std Deviation (36.4-46.3) fL RDW Coeff of Mile (11.5-14.5) % Plt Count (130-400) K/uL MPV (7.4-10.4) fL Immature Gran % (Auto) % Neut % (Auto) % Lymph % (Auto) % [place] % (Auto) % Eos % (Auto) % Baso % (Auto) % Neut # (Auto) (1.4-6.5) K/uL Lymph # (Auto) (1.2-3.4) K/uL [place] # (Auto) (0.11-0.59) K/uL Eos # (Auto) (0-0.5) K/uL Baso # (Auto) (0-0.2) K/uL Immature Gran # (Auto) (0.00-0.02) K/uL Hypersegmented Neuts Macrocytosis ABG pH (7.35-7.45) ABG pCO2 (35-46) mmHg ABG pO2 (80-95) mmHg ABG HCO3 (19-24) mmol/L ABG O2 Saturation (90-95) % ABG Base Excess (-9-1.8) mEq/L Den Test (Pos) Barometric Pressure mm/Hg Oxygen Given Sodium (136-145) mmol/L Potassium (3.5-5.1) mmol/L Chloride (98-107) mmol/L Carbon Dioxide (21-32) mmol/L Anion Gap (3-11) BUN (7-18) mg/dl Creatinine (0.6-1.2) mg/dl Est Cr Clr Drug Dosing ml/min Est GFR ( Amer) ml/min Est GFR (Non-Af Amer) ml/min BUN/Creatinine Ratio (10-20) Glucose (70-99) mg/dl POC Glucose 257 H 166 H (70-99) mg/dl Estimat Average Glucose mg/dl Hemoglobin A1c (4.5-5.6) % Calcium (8.5-10.1) mg/dl Phosphorus (2.5-4.9) mg/dl Magnesium (1.8-2.4) mg/dl Total Bilirubin (0.2-1) mg/dl AST (15-37) U/L ALT (12-78) U/L Alkaline Phosphatase (45-117) U/L Ammonia 53.0 H (11-32) umol/L Total Protein (6.4-8.2) gm/dl Albumin (3.4-5.0) gm/dl Globulin (2.5-4.0) gm/dl Albumin/Globulin Ratio (0.9-2) Procalcitonin (0-0.5) ng/ml Urine Color Urine Appearance (Clear) Urine pH (4.5-7.5) Ur Specific [place] (1.000-1.030) Urine Protein (Negative) Urine Glucose (UA) (Negative) Urine Ketones (Negative) Urine Blood (Negative) Urine Nitrite (Negative) Urine Bilirubin (Negative) Urine Urobilinogen (Negative) Ur Leukocyte Esterase (Negative) Urine WBC (Auto) (0-5) /hpf Urine RBC (Auto) (0-4) /hpf U Hyaline Cast (Auto) (0-5) /lpf U Epithel Cells (Auto) (0-5) /lpf Urine Bacteria (Auto) (Negative) Urine Yeast (None Prsent) Bld Cult Staph aureus PCR (Negative) Blood Culture MRSA PCR (Negative) 11/22/20 11/22/20 11/22/20 Range/Units 14:26 13:09 11:47 WBC (4.8-10.8) K/uL RBC (4.2-5.4) M/uL Hgb (12.0-16.0) g/dL Hct (37-47) % MCV (80-100) fL MCH (25-34) pg MCHC (32-36) g/dL RDW Std Deviation (36.4-46.3) fL RDW Coeff of Mile (11.5-14.5) % Plt Count (130-400) K/uL MPV (7.4-10.4) fL Immature Gran % (Auto) % Neut % (Auto) % Lymph % (Auto) % [place] % (Auto) % Eos % (Auto) % Baso % (Auto) % Neut # (Auto) (1.4-6.5) K/uL Lymph # (Auto) (1.2-3.4) K/uL [place] # (Auto) (0.11-0.59) K/uL Eos # (Auto) (0-0.5) K/uL Baso # (Auto) (0-0.2) K/uL Immature Gran # (Auto) (0.00-0.02) K/uL Hypersegmented Neuts Macrocytosis ABG pH 7.47 H (7.35-7.45) ABG pCO2 46 (35-46) mmHg ABG pO2 75 L (80-95) mmHg ABG HCO3 33 H (19-24) mmol/L ABG O2 Saturation 95.8 H (90-95) % ABG Base Excess 8.3 H (-9-1.8) mEq/L Den Test Pos (Pos) Barometric Pressure 738.1 mm/Hg Oxygen Given 5 L Sodium (136-145) mmol/L Potassium (3.5-5.1) mmol/L Chloride (98-107) mmol/L Carbon Dioxide (21-32) mmol/L Anion Gap (3-11) BUN (7-18) mg/dl Creatinine (0.6-1.2) mg/dl Est Cr Clr Drug Dosing ml/min Est GFR ( Amer) ml/min Est GFR (Non-Af Amer) ml/min BUN/Creatinine Ratio (10-20) Glucose (70-99) mg/dl POC Glucose 167 H (70-99) mg/dl Estimat Average Glucose mg/dl Hemoglobin A1c (4.5-5.6) % Calcium (8.5-10.1) mg/dl Phosphorus (2.5-4.9) mg/dl Magnesium (1.8-2.4) mg/dl Total Bilirubin (0.2-1) mg/dl AST (15-37) U/L ALT (12-78) U/L Alkaline Phosphatase (45-117) U/L Ammonia (11-32) umol/L Total Protein (6.4-8.2) gm/dl Albumin (3.4-5.0) gm/dl Globulin (2.5-4.0) gm/dl Albumin/Globulin Ratio (0.9-2) Procalcitonin (0-0.5) ng/ml Urine Color Dark Yellow Urine Appearance Clear (Clear) Urine pH 6.0 (4.5-7.5) Ur Specific [place] 1.017 (1.000-1.030) Urine Protein Negative (Negative) Urine Glucose (UA) Negative (Negative) Urine Ketones Negative (Negative) Urine Blood 2+ H (Negative) Urine Nitrite Negative (Negative) Urine Bilirubin Negative (Negative) Urine Urobilinogen Negative (Negative) Ur Leukocyte Esterase 1+ H (Negative) Urine WBC (Auto) 5-10 H (0-5) /hpf Urine RBC (Auto) 10-30 H (0-4) /hpf U Hyaline Cast (Auto) >30 H (0-5) /lpf U Epithel Cells (Auto) >30 H (0-5) /lpf Urine Bacteria (Auto) Negative (Negative) Urine Yeast Budding A (None Prsent) Bld Cult Staph aureus PCR (Negative) Blood Culture MRSA PCR (Negative) 11/22/20 11/22/20 11/22/20 Range/Units 07:32 06:34 06:34 WBC (4.8-10.8) K/uL RBC (4.2-5.4) M/uL Hgb (12.0-16.0) g/dL Hct (37-47) % MCV (80-100) fL MCH (25-34) pg MCHC (32-36) g/dL RDW Std Deviation (36.4-46.3) fL RDW Coeff of Mile (11.5-14.5) % Plt Count (130-400) K/uL MPV (7.4-10.4) fL Immature Gran % (Auto) % Neut % (Auto) % Lymph % (Auto) % [place] % (Auto) % Eos % (Auto) % Baso % (Auto) % Neut # (Auto) (1.4-6.5) K/uL Lymph # (Auto) (1.2-3.4) K/uL [place] # (Auto) (0.11-0.59) K/uL Eos # (Auto) (0-0.5) K/uL Baso # (Auto) (0-0.2) K/uL Immature Gran # (Auto) (0.00-0.02) K/uL Hypersegmented Neuts Macrocytosis ABG pH (7.35-7.45) ABG pCO2 (35-46) mmHg ABG pO2 (80-95) mmHg ABG HCO3 (19-24) mmol/L ABG O2 Saturation (90-95) % ABG Base Excess (-9-1.8) mEq/L Den Test (Pos) Barometric Pressure mm/Hg Oxygen Given Sodium (136-145) mmol/L Potassium (3.5-5.1) mmol/L Chloride (98-107) mmol/L Carbon Dioxide (21-32) mmol/L Anion Gap (3-11) BUN (7-18) mg/dl Creatinine (0.6-1.2) mg/dl Est Cr Clr Drug Dosing ml/min Est GFR ( Amer) ml/min Est GFR (Non-Af Amer) ml/min BUN/Creatinine Ratio (10-20) Glucose (70-99) mg/dl POC Glucose 166 H (70-99) mg/dl Estimat Average Glucose 120 mg/dl Hemoglobin A1c 5.8 H (4.5-5.6) % Calcium (8.5-10.1) mg/dl Phosphorus (2.5-4.9) mg/dl Magnesium (1.8-2.4) mg/dl Total Bilirubin (0.2-1) mg/dl AST (15-37) U/L ALT (12-78) U/L Alkaline Phosphatase (45-117) U/L Ammonia (11-32) umol/L Total Protein (6.4-8.2) gm/dl Albumin (3.4-5.0) gm/dl Globulin (2.5-4.0) gm/dl Albumin/Globulin Ratio (0.9-2) Procalcitonin 1.06 H (0-0.5) ng/ml Urine Color Urine Appearance (Clear) Urine pH (4.5-7.5) Ur Specific [place] (1.000-1.030) Urine Protein (Negative) Urine Glucose (UA) (Negative) Urine Ketones (Negative) Urine Blood (Negative) Urine Nitrite (Negative) Urine Bilirubin (Negative) Urine Urobilinogen (Negative) Ur Leukocyte Esterase (Negative) Urine WBC (Auto) (0-5) /hpf Urine RBC (Auto) (0-4) /hpf U Hyaline Cast (Auto) (0-5) /lpf U Epithel Cells (Auto) (0-5) /lpf Urine Bacteria (Auto) (Negative) Urine Yeast (None Prsent) Bld Cult Staph aureus PCR (Negative) Blood Culture MRSA PCR (Negative) 11/22/20 11/22/20 11/20/20 Range/Units 06:34 06:34 23:18 WBC 12.87 H (4.8-10.8) K/uL RBC 3.67 L (4.2-5.4) M/uL Hgb 14.1 (12.0-16.0) g/dL Hct 42.0 (37-47) % MCV 114.4 H (80-100) fL MCH 38.4 H (25-34) pg MCHC 33.6 (32-36) g/dL RDW Std Deviation 55.4 H (36.4-46.3) fL RDW Coeff of Mile 13.2 (11.5-14.5) % Plt Count 148 (130-400) K/uL MPV 9.4 (7.4-10.4) fL Immature Gran % (Auto) 0.2 % Neut % (Auto) 86.5 % Lymph % (Auto) 6.6 % [place] % (Auto) 6.7 % Eos % (Auto) 0.0 % Baso % (Auto) 0.0 % Neut # (Auto) 11.13 H (1.4-6.5) K/uL Lymph # (Auto) 0.85 L (1.2-3.4) K/uL [place] # (Auto) 0.86 H (0.11-0.59) K/uL Eos # (Auto) 0.00 (0-0.5) K/uL Baso # (Auto) 0.00 (0-0.2) K/uL Immature Gran # (Auto) 0.03 H (0.00-0.02) K/uL Hypersegmented Neuts 1+ Macrocytosis Present ABG pH (7.35-7.45) ABG pCO2 (35-46) mmHg ABG pO2 (80-95) mmHg ABG HCO3 (19-24) mmol/L ABG O2 Saturation (90-95) % ABG Base Excess (-9-1.8) mEq/L Den Test (Pos) Barometric Pressure mm/Hg Oxygen Given Sodium 127 L (136-145) mmol/L Potassium 4.1 (3.5-5.1) mmol/L Chloride 88 L (98-107) mmol/L Carbon Dioxide 33 H (21-32) mmol/L Anion Gap 6.0 (3-11) BUN 20 H D (7-18) mg/dl Creatinine 0.76 (0.6-1.2) mg/dl Est Cr Clr Drug Dosing 73.1 ml/min Est GFR ( Amer) 87.1 ml/min Est GFR (Non-Af Amer) 75.1 ml/min BUN/Creatinine Ratio 26.5 H (10-20) Glucose 162 H (70-99) mg/dl POC Glucose (70-99) mg/dl Estimat Average Glucose mg/dl Hemoglobin A1c (4.5-5.6) % Calcium 9.4 (8.5-10.1) mg/dl Phosphorus 3.3 (2.5-4.9) mg/dl Magnesium 2.1 (1.8-2.4) mg/dl Total Bilirubin 0.7 D (0.2-1) mg/dl AST 20 (15-37) U/L ALT 32 (12-78) U/L Alkaline Phosphatase 126 H (45-117) U/L Ammonia (11-32) umol/L Total Protein 7.4 (6.4-8.2) gm/dl Albumin 2.8 L (3.4-5.0) gm/dl Globulin 4.6 H (2.5-4.0) gm/dl Albumin/Globulin Ratio 0.6 L (0.9-2) Procalcitonin (0-0.5) ng/ml Urine Color Urine Appearance (Clear) Urine pH (4.5-7.5) Ur Specific [place] (1.000-1.030) Urine Protein (Negative) Urine Glucose (UA) (Negative) Urine Ketones (Negative) Urine Blood (Negative) Urine Nitrite (Negative) Urine Bilirubin (Negative) Urine Urobilinogen (Negative) Ur Leukocyte Esterase (Negative) Urine WBC (Auto) (0-5) /hpf Urine RBC (Auto) (0-4) /hpf U Hyaline Cast (Auto) (0-5) /lpf U Epithel Cells (Auto) (0-5) /lpf Urine Bacteria (Auto) (Negative) Urine Yeast (None Prsent) Bld Cult Staph aureus PCR Negative (Negative) Blood Culture MRSA PCR Negative (Negative) PG Care Time/CCT Total # of Minutes Spent Total Time Spent with Patient: Total time spent is greater than 50% in coordination of care (as documented) at patient's floor/unit and/or counseling patient: Coding Level of Care Code 31410 Subseq Hosp Care Lvl 3 Diagnoses Acute respiratory failure with hypoxia and hypercapnia J96.01; J96.02 COPD (chronic obstructive pulmonary disease) J44.9 Sinus tachycardia R00.0 Hyponatremia E87.1 Chronic back pain M54.5; G89.29 Back pain laterality: midline Back pain location: low back pain Sciatica presence: unspecified whether sciatica present Hypertension I10 Hypothyroidism E03.9 Diabetes type 2, controlled E11.9 Current tobacco use Z72.0 Depression with anxiety F41.8 Elevated MCV R71.8 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
[2020-11-22] MEDS ORDERED: VANCOMYCIN HCL 2,250 MG in SODIUM CHLORIDE 0.9% 500 ML IV ONE (14:45)
[2020-11-22 14:54] LABS: Allen Test Pos (Pos); Base Excess ABG 8.3 mEq/L (-9-1.8); HCO3 ABG 33 mmol/L (19-24); Oxygen Saturation ABG 95.8 % (90-95); PCO2 ABG 46 mmHg (35-46); PO2 ABG 75 mmHg (80-95); pH ABG 7.47 (7.35-7.45)
[2020-11-22 16:30] LABS: Estimated Average Glucose 120 mg/dl; Hemoglobin A1C 5.8 % (4.5-5.6)
[2020-11-22] MEDS ORDERED: LACTULOSE SYRUP 30 GM/45 ML UDP PO STA (16:34)
--- NOTE | 2020-11-22 16:43 | Pharmacy Report ---
Pharmacy Abx Dose Short Note - Date of Service November 22, 2020 - Assessment & Plan Assessment 80 year old F receiving empiric vancomycin for treatment of GPC bacteremia Staph/MRSA PCR resulted as negative indicating this is most likely coagulase negative staph. Antibiotic coverage will be continued in the setting of leukocytosis, elevated procalcitonin, and patient appearing ill on evaluation Plan Vancomycin * Loading dose: 2250 mg IV * Maintenance dose: 1000 mg (9 mg/kg) IV q12h * Monitor renal function and levels closely per patient is at high risk of drug accumulation with BMI > 40 * Goal trough level: ~15 mcg/mL * Trough ordered for 11/21 @ 0330 Pharmacy will continue to follow and will adjust dose/frequency as necessary. Thank you.
[2020-11-23] MEDS: LEVALBUTEROL HCL 0.63 MG/3 ML NEB NEB SCH ×4 (01:32→19:10)
[2020-11-23] MEDS: MELATONIN 3 MG TAB PO PRN (01:48)
[2020-11-23] MEDS ORDERED: PROCHLORPERAZINE MALEATE 5 MG TAB PO ONE (02:03)
[2020-11-23] MEDS: PRAMIPEXOLE DIHYDROCHLO 0.25 MG TAB PO PRN ×2 (03:22→20:42)
[2020-11-23] MEDS: VANCOMYCIN HCL 1,000 MG in SODIUM CHLORIDE 0.9% 250 ML IV SCH ×2 (03:26→16:56)
[2020-11-23] MEDS: ACETAMINOPHEN 325 MG TAB PO PRN (05:01)
[2020-11-23] MEDS: LEVOTHYROXINE SODIUM 125 MCG TABLET PO SCH (06:27)
[2020-11-23] MEDS: ENOXAPARIN INJ 40 MG/0.4 ML SYR SQ SCH ×2 (06:27→17:42)
[2020-11-23 07:13] LABS: Hematocrit (blood only) 42.7 % (37-47); Hemoglobin 14.3 g/dL (12.0-16.0); Immature Granulocytes # (auto) 0.04 K/uL (0.00-0.02); Immature Granulocytes % (auto) 0.3 %; Lymphocytes # (auto) 0.86 K/uL (1.2-3.4); Lymphocytes % (auto) 5.8 %; Mean Corpuscular Hemoglobin 38.4 pg (25-34); Mean Corpuscular Hgb Conc 33.5 g/dL (32-36); Mean Corpuscular Volume 114.8 fL (80-100); Mean Platelet Volume 9.8 fL (7.4-10.4); Monocytes # (auto) 1.16 K/uL (0.11-0.59); Monocytes % (auto) 7.9 %; Neutrophils # (auto) 12.69 K/uL (1.4-6.5); Platelet Count 156 K/uL (130-400); RDW Coefficient of Variation 13.1 % (11.5-14.5); RDW Standard Deviation 54.9 fL (36.4-46.3); Red Blood Count 3.72 M/uL (4.2-5.4); White Blood Count 14.75 K/uL (4.8-10.8)
[2020-11-23 07:22] LABS: INR 1.3 (0.9-1.1); Prothrombin Time 12.9 Seconds (9.0-12.0)
[2020-11-23 07:29] LABS: Macrocytosis Present
[2020-11-23 08:01] LABS: Albumin Level 2.9 gm/dl (3.4-5.0); BUN Creatinine Ratio 29.3 (10-20); Creatinine Clr Calc Pharmacy 67.6 ml/min; Est GFR (African American) 78.3 ml/min; Est GFR (Non-African American) 67.5 ml/min; Folate (Folic Acid) 10.5 ng/ml (>5.38); Potassium 3.5 mmol/L (3.5-5.1)
[2020-11-23 08:04] LABS: Albumin Globulin Ratio 0.7 (0.9-2); Bilirubin,Total 0.8 mg/dl (0.2-1); Globulin 4.4 gm/dl (2.5-4.0); Total Protein 7.3 gm/dl (6.4-8.2)
[2020-11-23] MEDS: PANTOprazole 40 MG TAB PO SCH (08:23)
[2020-11-23] MEDS: SPIRONOLACTONE 25 MG TAB PO SCH (08:23)
[2020-11-23] MEDS: carvediloL 25 MG TAB PO SCH ×2 (08:23→20:42)
[2020-11-23] MEDS: FUROSEMIDE 40 MG in SYRINGE 0 ML IV SCH (08:24)
[2020-11-23] MEDS: DULoxetine HCL 60 MG CAP PO SCH (08:24)
[2020-11-23] MEDS: GABAPENTIN 300 MG CAP PO SCH ×3 (08:24→20:42)
[2020-11-23] MEDS: LIDOCAINE 5% 1 PATCH TD SCH (08:24)
[2020-11-23] MEDS: LACTULOSE SYRUP 30 GM/45 ML UDP PO SCH ×2 (08:25→20:42)
[2020-11-23] MEDS: UMECLIDINIUM BROMIDE 62.5MCG/BLISTER 7 PUFFS/INHALER INH SCH (08:25)
[2020-11-23] MEDS: INSULIN ASPART 100 UNITS/ML 3 ML PEN SC SCH ×4 (08:25→20:48)
[2020-11-23] MEDS ORDERED: methylPREDNISolone 40 MG in SYRINGE 0 ML IV SCH (09:00)
--- NOTE | 2020-11-23 13:06 | Hospitalist Progress Note ---
Date of Service November 23, 2020 Assessment & Plan (1) Acute respiratory failure with hypoxia and hypercapnia: Plan: Bernarda Lara is a 80-year-old female with past medical history significant for chronic back pain, nonalcoholic cirrhosis with varices, COPD, and type 2 diabetes; who presents for concerns of shortness of breath with low oxygen saturation while at home. She was just discharged from hospital ater short stay for mild pancreatitis where she received IVFs and had diuretics held briefly. Presented with hypoxia, tachycardia, CXR and CHest CT without contrast with lung mass likely malignant, but no pleural effusions or infiltrate Some reported wheezing on admission With bibasilar crackles and continued tachypnea on exam, but has been weaned from BiPAP to HFNC to 5 L nasal cannula today after IV diuresis and IV steroids No chest pain, trop neg, ECG with sinus tach, PACs but no significant ischemic changes CTA CHest-neg for PE Likely COPD exacerbation and acute on chronic diastolic CHF As the cause Last ECHO 04/2019 with preserved EF -Continues to utilize/smoke tobacco (50-[id number] smoking history) Procal elevated but no real source of infection found, no pneumonia -COVID-19 negative VBG upon admission with evidence of CO2 retention ABG with hypoxemia but no hypercapnia on 11/22 -Continue Lasix 40 mg IV twice daily and continue home po aldactone -continue Solu-Medrol but decrease dose to 40 mg q12h -Xopenex q6R -Wean oxygen as tolerated -advised cessation of smoking - Drop Lasix to daily and prednisone from Solu-Medrol. (2) COPD (chronic obstructive pulmonary disease): Plan: scheduled nebs smoking cessation counseling given started Incruse ELlipta IV steroids as above (3) Sinus tachycardia: Plan: Tachycardia: -Seemingly increasing tachycardia following administration of albuterol but concern for PE given recent hospitalization and hypoxia --> CTA chest neg for PE Tachycardia now improved -Potentially reactive in nature versus missed evening dose carvedilol -Seemingly improved following administration of Coreg -Continue to monitor on telemetry (4) Bacteremia: Plan: Now growing 1/4 bottles with gram-positive cocci in clusters PCR negative for Staph aureus or MRSA Most likely a contaminant However, procalcitonin was elevated upon admission and remains elevated today. Urinalysis appears contaminated Unclear if this could potentially be a true bacteremia Start IV vancomycin Follow blood cultures Repeat blood culture on the morning of 11/23 to ensure stability Of note, she does have open wounds in her groins bilaterally which could be a source of bacteremia. - Still pending. If repeat cultures are negative x 24 hours, or cultures from 11/20 grown coag- Staph, will stop abx therapy. (5) Hyponatremia: Plan: -Sodium of 128 on admission, baseline around 131, now stable at 127 likely volume overload related with cirrhosis, CHF -Continue to diurese with IV lasix bid today -follow BMP in AM (6) Chronic back pain: Plan: Has chronic back pain has known compression deformities and seen again here on CT continue CYmbalta and gabapentin, lidocaine patch, Voltaren gel, and Tylenol as needed avoid opioids due to h/o dependence and has since been weaned off (7) Hypertension: Plan: BP controlled -Continue Coreg 25 mg BID, and aldactone, IV lasix (8) Hypothyroidism: Plan: TSH normal at 1.9 in 04/2020 continue home LT4 (9) Diabetes type 2, controlled: Plan: not on meds at home Hemoglobin A1c only 5.8% but with hyperglycemia here secondary to corticosteroids Continue sliding scale insulin and tighten down correction factor and carb ratio (10) Current tobacco use: Plan: counseled on cessation (11) Depression with anxiety: Plan: continue CYmbalta (12) Elevated MCV: Plan: no anemia MCV 114 likely secondary to liver disease (13) 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: Plan: Portal hypertension with varices: -Follows with [facility] locally -Continue lactulose but increase to 3 times daily as she is constipated and ammonia is elevated and she is drowsy at times Continue spironolactone daily, and Lasix Continue beta-linnette (14) Lung nodule: Plan: noted on CT chest and addressed previous admission-likely malignant and she declines further workup (15) Obesity: Plan: BMI 40.6 needs weight loss (16) Intertrigo: Plan: in groins bilat with ulceration left groin start antifungal cream Wound care nurse consult placed (17) Chronic reflux esophagitis: Plan: continue PPI (18) Hypomagnesemia: Plan: Replaced and resolved (19) DVT prophylaxis: Plan: DVT ppx: Lovenox 40 twice daily CODE STATUS: DNR/DNI Discussed her care with her son at the bedside Patient is now agreeable to rehab placement whereas she has declined this in previous hospitalization Admission and Anticipated Discharge Date Admission Date: November 21, 2020 Subjective Feels tired this morning after having BMs overnight due to the lactulose. Reports no fevers/chills, chest pain, shortness of breath, abdominal pain, nausea, or vomiting. Physical Exam Constitutional: WD/WN, vitals as above Eyes: EOM intact bilaterally; no conjunctival abnormality ENMT: external ear and nose normal, oropharynx normal Neck: trachea midline, no thyromegaly normal visual inspection Respiratory: normal respiratory effort, lungs clear to auscultation no respiratory distress Cardiovascular: RRR, no murmur, no edema Gastrointestinal (Abdomen): Inspection/Auscultation: abdomen normal to inspection; abdomen not distended Musculoskeletal: no cyanosis or clubbing, extremities motor strength 5/5 Skin: no rashes, warm and dry Neurologic: moves all extremities and awake Psychiatric: Orientation: alert, oriented to person and cooperative Results & Data Results & Data ([facility]) Vital Signs (Past 12 Hours) Vital Signs Temp Pulse Pulse Pulse Resp BP Pulse Ox 11/23/20 12:50 83 20 92 11/23/20 11:10 35.8 C L 68 16 127/75 92 11/23/20 08:00 76 11/23/20 07:31 35.8 C L 70 16 147/84 H 95 11/23/20 07:15 67 19 94 11/23/20 04:23 37.0 C 75 18 148/84 H 91 11/23/20 01:33 75 20 93 PG Care Time/CCT Total # of Minutes Spent Total Time Spent with Patient: Total time spent is greater than 50% in coordination of care (as documented) at patient's floor/unit and/or counseling patient: Coding Level of Care Code 08906 Subseq Hosp Care Lvl 3 Diagnoses Acute respiratory failure with hypoxia and hypercapnia J96.01; J96.02 COPD (chronic obstructive pulmonary disease) J44.9 Sinus tachycardia R00.0 Bacteremia R78.81 Hyponatremia E87.1 Chronic back pain M54.5; G89.29 Back pain laterality: midline Back pain location: low back pain Sciatica presence: unspecified whether sciatica present Hypertension I10 Hypothyroidism E03.9 Diabetes type 2, controlled E11.9 Current tobacco use Z72.0 Depression with anxiety F41.8 Elevated MCV R71.8 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
[2020-11-24] MEDS: LEVALBUTEROL HCL 0.63 MG/3 ML NEB NEB SCH ×2 (01:07→07:06)
[2020-11-24] MEDS ORDERED: VANCOMYCIN TROUGH ONE (03:30)
[2020-11-24] MEDS: VANCOMYCIN HCL 1,000 MG in SODIUM CHLORIDE 0.9% 250 ML IV SCH (04:24)
[2020-11-24 04:27] LABS: Hematocrit (blood only) 42.1 % (37-47); Hemoglobin 14.3 g/dL (12.0-16.0); Mean Corpuscular Hemoglobin 39.2 pg (25-34); Mean Corpuscular Volume 115.3 fL (80-100); Mean Platelet Volume 9.8 fL (7.4-10.4); Platelet Count 143 K/uL (130-400); RDW Coefficient of Variation 12.9 % (11.5-14.5); RDW Standard Deviation 54.4 fL (36.4-46.3); Red Blood Count 3.65 M/uL (4.2-5.4); White Blood Count 10.77 K/uL (4.8-10.8)
[2020-11-24 04:56] LABS: BUN Creatinine Ratio 37.6 (10-20); Calcium 9.2 mg/dl (8.5-10.1); Creatinine Clr Calc Pharmacy 71.9 ml/min; Est GFR (African American) 84.4 ml/min; Est GFR (Non-African American) 72.8 ml/min; Potassium 4.1 mmol/L (3.5-5.1)
[2020-11-24] MEDS: LEVOTHYROXINE SODIUM 125 MCG TABLET PO SCH (06:02)
[2020-11-24] MEDS: ENOXAPARIN INJ 40 MG/0.4 ML SYR SQ SCH ×2 (06:02→17:12)
--- NOTE | 2020-11-24 07:39 | Pharmacy Report ---
Pharmacy Abx Dose Short Note - Date of Service November 24, 2020 - Assessment & Plan Assessment 80 year old F receiving vancomycin for GPC in blood culture. Repeat blood cultures pending. Day # 3 of antimicrobial therapy. Plan Vancomycin * Trough level came back therapeutic at ~16 mcg/ml (goal 15-20 mcg/ml) * Level drawn before steady state, anticipate true trough to be higher. Patient with risk factors for accumulation of vancomycin as BMI >35 kg/m2. Therefore, will empirically scale back on dosing to 750 mg iv q 12 hrs to hopefully avoid elevated levels. * Renal function remains stable. Awaiting repeat blood cultures. Will try and deescalate as soon as possible Pharmacy will continue to follow and will adjust dose/frequency as necessary. Thank you.
[2020-11-24] MEDS: carvediloL 25 MG TAB PO SCH ×2 (09:27→21:21)
[2020-11-24] MEDS: PANTOprazole 40 MG TAB PO SCH (09:28)
[2020-11-24] MEDS: GABAPENTIN 300 MG CAP PO SCH ×3 (09:28→21:20)
[2020-11-24] MEDS: SPIRONOLACTONE 25 MG TAB PO SCH (09:28)
[2020-11-24] MEDS: predniSONE 20 MG TAB PO SCH (09:28)
[2020-11-24] MEDS: UMECLIDINIUM BROMIDE 62.5MCG/BLISTER 7 PUFFS/INHALER INH SCH (09:29)
[2020-11-24] MEDS: LIDOCAINE 5% 1 PATCH TD SCH (09:29)
[2020-11-24] MEDS: INSULIN ASPART 100 UNITS/ML 3 ML PEN SC SCH ×4 (09:31→21:14)
[2020-11-24] MEDS: DULoxetine HCL 60 MG CAP PO SCH (09:33)
[2020-11-24] MEDS ORDERED: LEVALBUTEROL HCL 0.63 MG/3 ML NEB NEB PRN (10:11)
[2020-11-24] MEDS: LACTULOSE SYRUP 30 GM/45 ML UDP PO SCH ×2 (11:29→21:22)
[2020-11-24] MEDS: FUROSEMIDE 40 MG in SYRINGE 0 ML IV SCH (11:29)
[2020-11-24] MEDS: VANCOMYCIN HCL 750 MG in SODIUM CHLORIDE 0.9% 250 ML IV SCH (17:11)
[2020-11-24] MEDS: ACETAMINOPHEN 325 MG TAB PO PRN (18:09)
--- NOTE | 2020-11-24 18:45 | Hospitalist Progress Note ---
Date of Service November 24, 2020 Assessment & Plan (1) Bacteremia: Plan: Currently 1 out of 4 bottles positive for gram-positive cocci. ID and sensitivities are pending Patient positive with procalcitonin initially at 1.54 trending downward to 1.06 and now 0.49 Continue treatment with vancomycin at this time. MRSA swab is negative WBCs have improved No evidence of sepsis at this time. (2) Acute respiratory failure with hypoxia and hypercapnia: Plan: Patient with history of COPD, asthma and current tobacco abuse Exam seems to be stabilizing Continue to treat with vancomycin for bacteremia Continue Incruse Ellipta Titrate prednisone as tolerated - currently 40 mg p.o. daily Follow clinically (3) COPD (chronic obstructive pulmonary disease): Plan: No evidence of pulmonary function testing in our system Scanned report from 01/17/2018 reports normal PFTs * FVC 89 percent * FEV1 98 percent * FEV1/FVC 82 * RV 115 percent * TLC 100 * RV/TLC 112 * DLCO 16.67 Patient being placed in rehab. Will talk to her about outpatient follow-up for pulmonary function testing to see if there is progression or any objective evidence of COPD (4) Sinus tachycardia: Plan: Most likely secondary to acute illness CTA negative for PE Continue Coreg Continue to follow vital sign per protocol (5) Hyponatremia: Plan: Continues to remain low at 127 Patient being treated for fluid overload with furosemide 40 mg IV daily Follow serial labs (6) Hypertension: Plan: Continue carvedilol, spironolactone and follow vital signs per protocol No chest pain or tightness reported by patient (7) Diabetes type 2, controlled: Plan: Diet controlled Hemoglobin A1c 5.8 percent Continue diabetic diet (8) Hypothyroidism: Plan: Continue levothyroxine Outpatient management (9) Pulmonary nodule: Plan: Patient continues to smoke Discussed abstention with her CT scan concerning for malignancy According to the notes, patient does not desire further work-up We will discuss again tomorrow (10) Current tobacco use: Plan: Patient continues to smoke Probable pulmonary nodule consistent with malignancy -patient aware and deferring on further work-up Recommend abstention We will discussed with patient and son (11) Chronic reflux esophagitis: Plan: No acute complaints at this time. Continue pantoprazole (12) Ambulatory dysfunction: Plan: PT/OT Currently awaiting insurance authorization for placement for rehab Continue with fall precautions Ambulate with assistance (13) Anemia: Plan: Hemoglobin 10.77 No active bleeding Follow (14) DVT prophylaxis: Plan: Enoxaparin Ambulate as tolerated Admission and Anticipated Discharge Date Admission Date: November 21, 2020 Subjective Attending: Dr. Larsen This is a 80-year-old female with multiple medical problems to include SANTOS with varices, COPD, diabetes, recent hospital admission for mild pancreatitis presenting with shortness of breath and hypoxia. Patient initially required BiPAP in the ER due to hypoxia. Blood cultures revealed gram-positive cocci in clusters in 1 out of 2 bottles. ID and sensitivity still pending. Urine culture had yeast not Sherrill albicans. CTA chest was negative for pulmonary emboli but did reveal a 3.2 x 1.7 cm irregular nodule right upper lobe which is suggestive of low-grade primary bronchogenic malignancy. There is also a 1 cm groundglass nodule within the right upper lobe which is new. Patient seen at bedside. She denies any fever chills sweats or rigors. She does have some shortness of breath. She currently is 93 percent on 4 L via nasal cannula. She has no chest pain or tightness. White count is improved to 10.77. Patient is afebrile. Review of Systems Review of Systems: All systems reviewed & are unremarkable except as noted in Subjective Physical Exam Physical Exam: GENERAL : No acute distress. Pleasant EYES: No icterus, gaze conjugate NOSE: No evidence of epistaxis. Nasal cannula is in place MOUTH: No lesions or candidiasis NECK: Supple LUNGS: Poor inspirational effort. Scattered rails. No appreciation of bronchospasm. HEART: Regular, rate controlled ABDOMEN: Soft, NT, ND, BS Present EXTREMITIES: +1 bilateral LE edema, pedal pulses intact and equal bilaterally NEURO: A&OX3 Results & Data Results & Data ([facility]) Vital Signs (Past 12 Hours) Vital Signs Temp Pulse Pulse Pulse Resp BP Pulse Ox 11/24/20 15:33 36.9 C 69 16 99/62 L 92 11/24/20 13:07 36.7 C 67 18 117/76 92 11/24/20 08:07 36.8 C 69 16 103/64 93 11/24/20 07:06 73 18 93 11/24/20 07:00 61 Laboratory Results 11/24/20 03:52 11/24/20 03:52 Diagnostic Findings No further diagnostic imaging since 11/21/2020 PG Care Time/CCT Total # of Minutes Spent Total Time Spent with Patient: Total time spent is greater than 50% in coordination of care (as documented) at patient's floor/unit and/or counseling patient: Coding Level of Care Code 63057 Subseq Hosp Care Lvl 2 Diagnoses Bacteremia R78.81 Acute respiratory failure with hypoxia and hypercapnia J96.01; J96.02 COPD (chronic obstructive pulmonary disease) J44.9 Sinus tachycardia R00.0 Hyponatremia E87.1 Hypertension I10 Diabetes type 2, controlled E11.9 Hypothyroidism E03.9 Pulmonary nodule R91.1 Current tobacco use Z72.0 Chronic reflux esophagitis K21.0 Ambulatory dysfunction R26.2 Anemia D64.9 Anemia type: unspecified type DVT prophylaxis Z29.9 Time Spent (min) 25 (1) Anemia Anemia type: unspecified type Qualified Code(s): D64.9 - Anemia, unspecified
[2020-11-24] MEDS: MELATONIN 3 MG TAB PO PRN (21:24)
[2020-11-24] MEDS: PRAMIPEXOLE DIHYDROCHLO 0.25 MG TAB PO PRN (21:31)
[2020-11-25] MEDS: VANCOMYCIN HCL 750 MG in SODIUM CHLORIDE 0.9% 250 ML IV SCH (04:13)
[2020-11-25] MEDS: ENOXAPARIN INJ 40 MG/0.4 ML SYR SQ SCH ×2 (06:01→17:32)
[2020-11-25] MEDS: LEVOTHYROXINE SODIUM 125 MCG TABLET PO SCH (06:01)
[2020-11-25] MEDS: UMECLIDINIUM BROMIDE 62.5MCG/BLISTER 7 PUFFS/INHALER INH SCH (07:46)
[2020-11-25] MEDS: GABAPENTIN 300 MG CAP PO SCH ×3 (07:46→20:47)
[2020-11-25] MEDS: MECLIZINE HCL 25 MG TAB PO PRN (07:47)
[2020-11-25] MEDS: carvediloL 25 MG TAB PO SCH ×2 (07:47→20:47)
[2020-11-25] MEDS: predniSONE 20 MG TAB PO SCH (07:47)
[2020-11-25] MEDS: PANTOprazole 40 MG TAB PO SCH (07:47)
[2020-11-25] MEDS: SPIRONOLACTONE 25 MG TAB PO SCH (07:48)
[2020-11-25] MEDS: LIDOCAINE 5% 1 PATCH TD SCH (07:48)
[2020-11-25] MEDS: LACTULOSE SYRUP 30 GM/45 ML UDP PO SCH ×2 (07:51→20:49)
[2020-11-25] MEDS: DULoxetine HCL 60 MG CAP PO SCH (07:56)
[2020-11-25 08:07] LABS: Creatinine Clr Calc Pharmacy 71.1 ml/min; Est GFR (African American) 84.4 ml/min; Est GFR (Non-African American) 72.8 ml/min
[2020-11-25] MEDS: INSULIN ASPART 100 UNITS/ML 3 ML PEN SC SCH ×4 (08:33→20:50)
--- NOTE | 2020-11-25 09:01 | Hospitalist Progress Note ---
Date of Service November 25, 2020 Assessment & Plan (1) Bacteremia: Plan: Currently 1 out of 4 bottles positive for gram-positive cocci. ID with micrococcus - no sensitivities to follow Patient positive with procalcitonin initially at 1.54 trending downward to 1.06 and now 0.49 so will continue course of abx Discontinue vancomycin at this time. Continue Levofloxacin X 4 more days then stop QTC today is 467 ms MRSA swab is negative WBCs have improved No evidence of sepsis at this time. 3 more days of antibiotics and stop (2) Acute respiratory failure with hypoxia and hypercapnia: Plan: Patient with history of COPD, asthma and current tobacco abuse Exam seems to be stabilizing Vanc x 3 days - change to Levofloxacin X 4 more days then stop Continue Incruse Ellipta Titrate prednisone as follows starting 11/24/2020: * 30 mg x 3 days * 20 mg daily x 3 days * 10 mg x 3 days then stop Follow clinically (3) COPD (chronic obstructive pulmonary disease): Plan: No evidence of pulmonary function testing in our system Scanned report from 01/17/2018 reports normal PFTs * FVC 89 percent * FEV1 98 percent * FEV1/FVC 82 * RV 115 percent * TLC 100 * RV/TLC 112 * DLCO 16.67 Patient being placed in rehab. Will talk to her about outpatient follow-up for pulmonary function testing to see if there is progression or any objective evidence of COPD (4) Sinus tachycardia: Plan: Most likely secondary to acute illness CTA negative for PE Continue Coreg Continue to follow vital sign per protocol (5) Hyponatremia: Plan: Improving. Check PRP tomorrow morning Patient being treated for fluid overload with furosemide 40 mg IV daily Follow serial labs (6) Hypertension: Plan: Continue carvedilol, spironolactone and follow vital signs per protocol No chest pain or tightness reported by patient (7) Diabetes type 2, controlled: Plan: Diet controlled Hemoglobin A1c 5.8 percent Continue diabetic diet (8) Hypothyroidism: Plan: Continue levothyroxine Outpatient management (9) Pulmonary nodule: Plan: Patient continues to smoke Discussed abstention with her CT scan concerning for malignancy According to the notes, patient does not desire further work-up We will discuss again today (10) Current tobacco use: Plan: Patient continues to smoke Probable pulmonary nodule consistent with malignancy -patient aware and deferring on further work-up Recommend abstention We will discuss with patient and son (11) Chronic reflux esophagitis: Plan: No acute complaints at this time. Continue pantoprazole (12) Ambulatory dysfunction: Plan: PT/OT completed and suggesting inpatient rehab Continue to await insurance authorization for placement for rehab Continue with fall precautions Ambulate with assistance (13) Anemia: Plan: Hemoglobin 10.77 No active bleeding Follow (14) DVT prophylaxis: Plan: Enoxaparin Ambulate as tolerated Admission and Anticipated Discharge Date Admission Date: November 21, 2020 Subjective Attending: Dr. Larsen This is a 80-year-old female with multiple medical problems to include SANTOS with varices, COPD, diabetes, recent hospital admission for mild pancreatitis presenting with shortness of breath and hypoxia. Patient initially required BiPAP in the ER due to hypoxia. Blood cultures revealed gram-positive cocci in clusters in 1 out of 2 bottles. ID and sensitivity still pending. Urine culture had yeast not Sherrill albicans. CTA chest was negative for pulmonary emboli but did reveal a 3.2 x 1.7 cm irregular nodule right upper lobe which is suggestive of low-grade primary bronchogenic malignancy. There is also a 1 cm groundglass nodule within the right upper lobe which is new. Patient seen at bedside. She denies any fever chills sweats or rigors. She does have some shortness of breath. She has no chest pain or tightness. Patient states that she attempted physical therapy but it was tiring. She has no acute complaints today Review of Systems Review of Systems: All systems reviewed & are unremarkable except as noted in Subjective Physical Exam Physical Exam: GENERAL : No acute distress. Pleasant. Seems tired EYES: No icterus, gaze conjugate NOSE: No evidence of epistaxis. Nasal cannula is in place MOUTH: No lesions or candidiasis NECK: Supple LUNGS: Scattered fine crackles. No appreciation of bronchospasm. HEART: Regular, rate controlled ABDOMEN: Soft, NT, ND, BS Present EXTREMITIES: +1 bilateral LE edema, pedal pulses intact and equal bilaterally NEURO: A&OX3 Results & Data Results & Data ([facility]) Vital Signs (Past 12 Hours) Vital Signs Temp Pulse Pulse Pulse Resp BP Pulse Ox 11/25/20 07:48 36.7 C 60 62 20 158/102 H 92 11/25/20 07:09 60 11/25/20 04:13 36.5 C 61 16 121/73 95 11/24/20 23:59 37 C 72 16 90/51 L 96 11/24/20 22:39 72 Laboratory Results 11/24/20 03:52 11/25/20 06:55 Diagnostic Findings No new diagnostic imaging PG Care Time/CCT Total # of Minutes Spent Total Time Spent with Patient: Total time spent is greater than 50% in coordination of care (as documented) at patient's floor/unit and/or counseling patient: Coding Level of Care Code 65412 Subseq Hosp Care Lvl 2 Diagnoses Bacteremia R78.81 Acute respiratory failure with hypoxia and hypercapnia J96.01; J96.02 COPD (chronic obstructive pulmonary disease) J44.9 Sinus tachycardia R00.0 Hyponatremia E87.1 Hypertension I10 Diabetes type 2, controlled E11.9 Hypothyroidism E03.9 Pulmonary nodule R91.1 Current tobacco use Z72.0 Chronic reflux esophagitis K21.0 Ambulatory dysfunction R26.2 Anemia D64.9 Anemia type: unspecified type DVT prophylaxis Z29.9 Time Spent (min) 20 (1) Anemia Anemia type: unspecified type Qualified Code(s): D64.9 - Anemia, unspecified
[2020-11-25] MEDS: levoFLOXacin 500 MG TAB PO SCH (10:45)
[2020-11-25] MEDS: FUROSEMIDE 40 MG in SYRINGE 0 ML IV SCH (10:45)
[2020-11-26] MEDS: ENOXAPARIN INJ 40 MG/0.4 ML SYR SQ SCH ×2 (06:03→18:27)
[2020-11-26] MEDS: LEVOTHYROXINE SODIUM 125 MCG TABLET PO SCH (06:03)
[2020-11-26 07:22] LABS: BUN Creatinine Ratio 29.7 (10-20); Calcium 9.2 mg/dl (8.5-10.1); Est GFR (Non-African American) 60.4 ml/min; Potassium 3.5 mmol/L (3.5-5.1)
[2020-11-26] MEDS: LACTULOSE SYRUP 30 GM/45 ML UDP PO SCH ×3 (07:41→21:09)
[2020-11-26] MEDS: GABAPENTIN 300 MG CAP PO SCH ×3 (07:42→21:07)
[2020-11-26] MEDS: UMECLIDINIUM BROMIDE 62.5MCG/BLISTER 7 PUFFS/INHALER INH SCH (07:42)
[2020-11-26] MEDS: PANTOprazole 40 MG TAB PO SCH (07:42)
[2020-11-26] MEDS: carvediloL 25 MG TAB PO SCH ×2 (07:43→21:08)
[2020-11-26] MEDS: DULoxetine HCL 60 MG CAP PO SCH (07:43)
[2020-11-26] MEDS: MECLIZINE HCL 25 MG TAB PO PRN (07:43)
[2020-11-26] MEDS: SPIRONOLACTONE 25 MG TAB PO SCH (07:44)
[2020-11-26] MEDS: predniSONE 10 MG TABLET PO SCH (07:44)
[2020-11-26] MEDS: LIDOCAINE 5% 1 PATCH TD SCH (07:45)
[2020-11-26] MEDS: INSULIN ASPART 100 UNITS/ML 3 ML PEN SC SCH ×4 (08:46→21:11)
[2020-11-26] MEDS: levoFLOXacin 500 MG TAB PO SCH (11:18)
[2020-11-26] MEDS: FUROSEMIDE 40 MG in SYRINGE 0 ML IV SCH (11:18)
[2020-11-26] MEDS: ACETAMINOPHEN 325 MG TAB PO PRN ×2 (11:19→21:14)
--- NOTE | 2020-11-26 16:09 | XRay Report ---
KUB HISTORY: Hyperactive bowel sounds, r/o ileus COMPARISON: CT abdomen and pelvis 11/21/2020 FINDINGS: Gaseous distended loops of large bowel measure up to 8.5 cm transversely. Surgical clips pr oject over the right lower quadrant abdomen. Vascular calcifications. No renal calculi. No ureteral calculi. No pneumoperitoneum or pneumatosis. Degenerative changes of the spine, pelvis and hips. ORIF hardware of the left proximal femur. IMPRESSION: Moderate gaseous distention of the large bowel suggestive of colonic ileus. ACT 112: Negative or not required by law. The above report was generated using voice recognition software. It may contain grammatical, syntax o r spelling errors. Electronically signed by: Fadi Ugalde M.D. 11/26/2020 4:08 PM
--- NOTE | 2020-11-26 18:06 | Hospitalist Progress Note ---
Date of Service November 26, 2020 Assessment & Plan (1) Ileus: Plan: On examination, the patient was found to have high-pitched bowel sounds A KUB was performed and revealed a colonic ileus with gaseous distention of 8.5 cm Patient is asymptomatic We will make patient clear liquids only overnight and repeat KUB in the morning Move patient from bed to chair for meals and for the evening. (2) Bacteremia: Plan: Currently 1 out of 4 bottles positive for gram-positive cocci. ID with micrococcus - no sensitivities to follow Patient positive with procalcitonin initially at 1.54 trending downward to 1.06 and now 0.49 so will continue course of abx Discontinued vancomycin. Continue Levofloxacin X 2 more days then stop QTC yesterday was 467 ms and is now 479 ms MRSA swab is negative WBCs have improved No evidence of sepsis at this time. 2 more days of antibiotics and stop (3) Acute respiratory failure with hypoxia and hypercapnia: Plan: Patient with history of COPD, asthma and current tobacco abuse Exam seems to be stabilizing Vanc x 3 days - change to Levofloxacin X 4 more days then stop Continue Incruse Ellipta Titrate prednisone as follows starting 11/24/2020: * 30 mg x 3 days * 20 mg daily x 3 days * 10 mg x 3 days then stop Follow clinically (4) COPD (chronic obstructive pulmonary disease): Plan: No evidence of pulmonary function testing in our system Scanned report from 01/17/2018 reports normal PFTs * FVC 89 percent * FEV1 98 percent * FEV1/FVC 82 * RV 115 percent * TLC 100 * RV/TLC 112 * DLCO 16.67 Patient being placed in rehab. Will talk to her about outpatient follow-up for pulmonary function testing to see if there is progression or any objective evidence of COPD (5) Sinus tachycardia: Plan: Patient asymptomatic Most likely secondary to acute illness CTA negative for PE Continue Coreg Continue to follow vital sign per protocol (6) Hyponatremia: Plan: Electrolytes are balanced Patient being treated for fluid overload with furosemide 40 mg IV daily. Change to p.o. Currently negative 3 L Follow serial labs (7) Hypertension: Plan: Continue carvedilol, spironolactone and follow vital signs per protocol No chest pain or tightness reported by patient (8) Diabetes type 2, controlled: Plan: Diet controlled Hemoglobin A1c 5.8 percent Continue diabetic diet (9) Hypothyroidism: Plan: Continue levothyroxine Outpatient management (10) Pulmonary nodule: Plan: Patient continues to smoke Discussed abstention with her CT scan concerning for malignancy Discussed with patient today. She does not wish for any further work-up for malignancy (11) Current tobacco use: Plan: Patient continues to smoke Probable pulmonary nodule consistent with malignancy -patient aware and deferring on further work-up Recommend abstention Further discussed with patient today to confirm no further work-up for malignancy (12) Chronic reflux esophagitis: Plan: No acute complaints at this time. Continue pantoprazole (13) Ambulatory dysfunction: Plan: PT/OT completed and suggesting inpatient rehab Patient accepted at [facility] as well as [facility]. Patient prefers [facility]. We will communicate with case management Continue with fall precautions Ambulate with assistance (14) Anemia: Plan: Hemoglobin 10.77 No active bleeding Follow (15) DVT prophylaxis: Plan: Enoxaparin Ambulate as tolerated Plan: Disposition: Patient accepted and prefers to go to [facility]. All IV medications have been discontinued. Angel catheter is being discontinued tonight. At this time, it is anticipated patient will be discharged tomorrow Admission and Anticipated Discharge Date Admission Date: November 21, 2020 Subjective Attending: Dr. Larsen This is a 80-year-old female with multiple medical problems to include SANTOS with varices, COPD, diabetes, recent hospital admission for mild pancreatitis presenting with shortness of breath and hypoxia. Patient initially required BiPAP in the ER due to hypoxia. Blood cultures revealed gram-positive cocci in clusters in 1 out of 2 bottles. ID and sensitivity still pending. Urine culture had yeast not Sherrill albicans. CTA chest was negative for pulmonary emboli but did reveal a 3.2 x 1.7 cm irregular nodule right upper lobe which is suggestive of low-grade primary bronchogenic malignancy. There is also a 1 cm groundglass nodule within the right upper lobe which is new. Patient is doing slightly better today. She has no nausea or vomiting. On examination she does have high-pitched tinkling bowel sounds. KUB reveals new ileus. No evidence of toxic megacolon. Patient has no pain with palpation. She is tolerating diet. She denies fever, chills, sweats. She would prefer to go to [facility] rather than to [facility]. We will discuss that with case management tomorrow. Review of Systems Review of Systems: All systems reviewed & are unremarkable except as noted in Subjective Physical Exam Physical Exam: GENERAL : No acute distress EYES: No icterus, gaze conjugate NOSE: No evidence of epistaxis MOUTH: No lesions or candidiasis NECK: Supple LUNGS: CTA B/L, no wheezes, rales or rhonchi HEART: Regular, rate controlled ABDOMEN: Soft, NT, ND, BS Present. No pain with palpation. High-pitched tinkling bowel sounds in the left lower quadrant. No rebound tenderness or guarding EXTREMITIES: No LE edema, pedal pulses intact NEURO: A&OX3 Results & Data Results & Data ([facility]) Vital Signs (Past 12 Hours) Vital Signs Temp Pulse Pulse Pulse Resp BP BP 11/26/20 15:41 80 11/26/20 15:35 36.7 C 76 18 105/70 11/26/20 08:00 36.6 C 60 20 117/74 11/26/20 07:13 66 11/26/20 07:05 36.6 C 61 18 99/62 L Pulse Ox 11/26/20 15:41 11/26/20 15:35 95 11/26/20 08:00 94 11/26/20 07:13 11/26/20 07:05 92 Laboratory Results 11/24/20 03:52 11/26/20 06:21 Diagnostic Findings KUB X-Ray 11/26/20 15:27 KUB HISTORY: Hyperactive bowel sounds, r/o ileus COMPARISON: CT abdomen and pelvis 11/21/2020 FINDINGS: Gaseous distended loops of large bowel measure up to 8.5 cm transversely. Surgical clips project over the right lower quadrant abdomen. Vascular calcifications. No renal calculi. No ureteral calculi. No pneumoperitoneum or pneumatosis. Degenerative changes of the spine, pelvis and hips. ORIF hardware of the left proximal femur. IMPRESSION: Moderate gaseous distention of the large bowel suggestive of colonic ileus. ACT 112: Negative or not required by law. The above report was generated using voice recognition software. It may contain grammatical, syntax or spelling errors. Electronically signed by: Fadi Ugalde M.D. 11/26/2020 4:08 PM PG Care Time/CCT Total # of Minutes Spent Total Time Spent with Patient: Total time spent is greater than 50% in coordinat ion of care (as documented) at patient's floor/unit and/or counseling patient: Coding Level of Care Code 92870 Subseq Hosp Care Lvl 2 Diagnoses Bacteremia R78.81 Acute respiratory failure with hypoxia and hypercapnia J96.01; J96.02 COPD (chronic obstructive pulmonary disease) J44.9 Sinus tachycardia R00.0 Hyponatremia E87.1 Hypertension I10 Diabetes type 2, controlled E11.9 Hypothyroidism E03.9 Pulmonary nodule R91.1 Current tobacco use Z72.0 Chronic reflux esophagitis K21.0 Ambulatory dysfunction R26.2 Anemia D64.9 Anemia type: unspecified type DVT prophylaxis Z29.9 Ileus K56.7 Time Spent (min) 40 Comment 40 minutes including 3 visits with patient. The last visit was inclusive of her son Frantz (1) Anemia Anemia type: unspecified type Qualified Code(s): D64.9 - Anemia, unspecified
[2020-11-26] MEDS: PRAMIPEXOLE DIHYDROCHLO 0.25 MG TAB PO PRN (21:16)
--- NOTE | 2020-11-27 05:53 | Electrocardiogram Report ---
Test Reason : Blood Pressure : / mmHG Vent. Rate : 072 BPM Atrial Rate : 072 BPM P-R Int : 182 ms QRS Dur : 076 ms QT Int : 438 ms P-R-T Axes : 067 -05 043 degrees QTc Int : 479 ms Poor data quality, interpretation may be adversely affected Sinus rhythm with Premature atrial complexes Inferior infarct (cited on or before 15-NOV-2020) Anterolateral infarct (cited on or before 15-NOV-2020) Abnormal ECG When compared with ECG of 21-NOV-2020 05:28, Premature atrial complexes are now Present Confirmed by Bernabe Aaron ([id number]) on 11/27/2020 5:53:36 AM Referred By: REFERRED SELF Confirmed By:Bernabe Aaron
[2020-11-27] MEDS: ENOXAPARIN INJ 40 MG/0.4 ML SYR SQ SCH ×2 (06:19→18:13)
[2020-11-27] MEDS: LEVOTHYROXINE SODIUM 125 MCG TABLET PO SCH (06:20)
[2020-11-27 08:24] LABS: BUN Creatinine Ratio 24.5 (10-20); Calcium 9.4 mg/dl (8.5-10.1); Creatinine Clr Calc Pharmacy 56.4 ml/min; Est GFR (Non-African American) 55.3 ml/min; Potassium 3.5 mmol/L (3.5-5.1)
[2020-11-27] MEDS: LIDOCAINE 5% 1 PATCH TD SCH (09:24)
[2020-11-27] MEDS: INSULIN ASPART 100 UNITS/ML 3 ML PEN SC SCH ×4 (09:25→21:30)
[2020-11-27] MEDS: FUROSEMIDE 40 MG TAB PO SCH (09:28)
[2020-11-27] MEDS: DULoxetine HCL 60 MG CAP PO SCH (09:28)
[2020-11-27] MEDS: carvediloL 25 MG TAB PO SCH ×2 (09:28→21:33)
[2020-11-27] MEDS: UMECLIDINIUM BROMIDE 62.5MCG/BLISTER 7 PUFFS/INHALER INH SCH (09:29)
[2020-11-27] MEDS: predniSONE 10 MG TABLET PO SCH (09:29)
[2020-11-27] MEDS: GABAPENTIN 300 MG CAP PO SCH ×3 (09:29→21:33)
[2020-11-27] MEDS: PANTOprazole 40 MG TAB PO SCH (09:29)
[2020-11-27] MEDS: SPIRONOLACTONE 25 MG TAB PO SCH (09:29)
[2020-11-27] MEDS: LACTULOSE SYRUP 30 GM/45 ML UDP PO SCH ×2 (09:32→21:35)
--- NOTE | 2020-11-27 09:34 | XRay Report ---
KUB HISTORY: Ileus COMPARISON: KUB 11/26/2020. FINDINGS: Dilated gas-filled colon is again noted measuring up to 8.5 cm in diameter. This is similar to the prior study. A left dynamic hip screw. Scattered surgical clips seen within the pelvis. No r enal calculi. No ureteral calculi. No pneumoperitoneum or pneumatosis. IMPRESSION: No change in the gaseous distention of the large bowel. This may represent an ileus. ACT 112: Negative or not required by law. Electronically signed by: Ernie Silva M.D. 11/27/2020 9:33 AM
[2020-11-27] MEDS: levoFLOXacin 500 MG TAB PO SCH (11:37)
--- NOTE | 2020-11-27 17:47 | Hospitalist Progress Note ---
Date of Service November 27, 2020 Assessment & Plan (1) Ileus: Plan: Repeat KUB this morning shows continued gastric extension of the colon. This most likely represents ileus Overnight, patient restricted to clear liquids Bowel movement this morning No abdominal pain. No nausea or vomiting Move patient from bed to chair for meals and for the evening. Advance patient to full liquid diet Repeat KUB in the morning (2) Bacteremia: Plan: Currently 1 out of 4 bottles positive for gram-positive cocci. ID with micrococcus - no sensitivities to follow Patient positive with procalcitonin initially at 1.54 trending downward to 1.06 and now 0.49 so will continue course of abx Discontinued vancomycin. Continue Levofloxacin X 1 more days then stop QTC 479 ms MRSA swab is negative WBCs have improved No evidence of sepsis at this time. 1 more days of antibiotics and stop (3) Acute respiratory failure with hypoxia and hypercapnia: Plan: Patient with history of COPD, asthma and current tobacco abuse Exam seems to be stabilizing Vanc x 3 days - change to Levofloxacin X 4 more days then stop Continue Incruse Ellipta Titrate prednisone as follows starting 11/24/2020: * 30 mg x 3 days * 20 mg daily x 3 days * 10 mg x 3 days then stop Follow clinically (4) COPD (chronic obstructive pulmonary disease): Plan: No evidence of pulmonary function testing in our system Scanned report from 01/17/2018 reports normal PFTs * FVC 89 percent * FEV1 98 percent * FEV1/FVC 82 * RV 115 percent * TLC 100 * RV/TLC 112 * DLCO 16.67 Patient being placed in rehab. Will talk to her about outpatient follow-up for pulmonary function testing to see if there is progression or any objective evidence of COPD (5) Sinus tachycardia: Plan: Patient asymptomatic Most likely secondary to acute illness CTA negative for PE Continue Coreg Continue to follow vital sign per protocol (6) Hyponatremia: Plan: Electrolytes are balanced Patient being treated for fluid overload with furosemide 40 mg IV daily. Changed to p.o. Currently negative 3 L Follow serial labs (7) Hypertension: Plan: Continue carvedilol, spironolactone and follow vital signs per protocol No chest pain or tightness reported by patient (8) Diabetes type 2, controlled: Plan: Diet controlled Hemoglobin A1c 5.8 percent Continue diabetic diet (9) Hypothyroidism: Plan: Continue levothyroxine Outpatient management (10) Pulmonary nodule: Plan: Patient continues to smoke Discussed abstention with her CT scan concerning for malignancy Discussed with patient today. She does not wish for any further work-up for malignancy. Discussed this with her son today as well (11) Current tobacco use: Plan: Patient continues to smoke Probable pulmonary nodule consistent with malignancy -patient aware and de ferring on further work-up Recommend abstention Further discussed with patient today to confirm no further work-up for malignancy (12) Chronic reflux esophagitis: Plan: No acute complaints at this time. Continue pantoprazole (13) Ambulatory dysfunction: Plan: PT/OT completed and suggesting inpatient rehab Patient accepted at [facility] as well as [facility]. Patient prefers [facility]. Continue with fall precautions Ambulate with assistance (14) Anemia: Plan: Hemoglobin 10.77 No active bleeding Follow (15) DVT prophylaxis: Plan: Enoxaparin Ambulate as tolerated Plan: Disposition: Patient accepted and prefers to go to [facility]. All IV medications have been discontinued. Angel catheter is being discontinued [facility]. At this time, it is anticipated patient will be discharged. Updated son at bedside Admission and Anticipated Discharge Date Admission Date: November 21, 2020 Subjective Attending: Dr. Larsen Patient seen and examined at bedside. She is feeling better. She has no abdom inal pain or distention. She did have a large bowel movement this morning which was soft but not watery. She has no hematochezia. She denies any other acute complaint. Review of Systems Review of Systems: All systems reviewed & are unremarkable except as noted in Subjective Physical Exam Physical Exam: GENERAL : No acute distress EYES: No icterus, gaze conjugate NOSE: No evidence of epistaxis MOUTH: No lesions or candidiasis NECK: Supple LUNGS: CTA B/L, no wheezes, rales or rhonchi HEART: Regular, rate controlled ABDOMEN: Soft, NT, ND, BS Present. Hyperactive bowel sounds noted. No pain with deep palpation. No rebound tenderness. No guarding. EXTREMITIES: No LE edema, pedal pulses intact NEURO: A&OX3 Results & Data Results & Data ([facility]) Vital Signs (Past 12 Hours) Vital Signs Temp Pulse Pulse Resp BP BP Pulse Ox 11/27/20 15:44 36.9 C 71 18 96/67 L 94 11/27/20 11:46 36.4 C L 64 16 107/71 95 11/27/20 08:09 66 11/27/20 07:34 36.4 C L 67 18 112/70 94 Laboratory Results 11/24/20 03:52 11/27/20 07:36 Diagnostic Findings KUB X-Ray 11/27/20 07:00 KUB HISTORY: Ileus COMPARISON: KUB 11/26/2020. FINDINGS: Dilated gas-filled colon is again noted measuring up to 8.5 cm in diameter. This is similar to the prior study. A left dynamic hip screw. Scattered surgical clips seen within the pelvis. No renal calculi. No ureteral calculi. No pneumoperitoneum or pneumatosis. IMPRESSION: No change in the gaseous distention of the large bowel. This may represent an ileus. ACT 112: Negative or not required by law. Electronically signed by: Ernie Silva M.D. 11/27/2020 9:33 AM Medications Administered Current Inpatient Medications Acetaminophen (Acetaminophen 325 Mg Tab) 650 mg PO Q4H PRN PRN Reason: Pain or Fever Stop: 12/21/20 03:49 Last Admin: 11/26/20 21:14 Dose: 650 mg Documented by: Al Hydrox/Mg Hydrox/Simethicone (Aluminum/Magnesium Susp 30 Ml Udc) 15 ml PO Q4H PRN PRN Reason: Dyspepsia Stop: 12/21/20 03:49 Carvedilol (Carvedilol 25 Mg Tab) 25 mg PO BID MONIQUE Stop: 12/21/20 08:59 Last Admin: 11/27/20 09:28 Dose: 25 mg Documented by: Dextrose (Dextrose 50% 50 Ml Syringe) 25 - 50 ml IV UD PRN; Protocol PRN Reason: Hypoglycemia Protocol Stop: 12/21/20 11:27 Diclofenac Sodium (Diclofenac Sod 1% Gel 100 Gm Tube) 2 gm EXT QID PRN PRN Reason: Pain Stop: 12/21/20 03:49 Duloxetine HCl (Duloxetine Hcl 60 Mg Cap) 60 mg PO DAILY MONIQUE Stop: 12/21/20 08:59 Last Admin: 11/27/20 09:28 Dose: 60 mg Documented by: Enoxaparin Sodium (Enoxaparin Inj 40 Mg/0.4 Ml Syr) 40 mg SQ Q12H MONIQUE Stop: 12/21/20 05:59 Last Admin: 11/27/20 06:19 Dose: 40 mg Documented by: Furosemide (Furosemide 40 Mg Tab) 40 mg PO QAM [facility] Stop: 12/27/20 08:59 Last Admin: 11/27/20 09:28 Dose: 40 mg Documented by: Gabapentin (Gabapentin 300 Mg Cap) 300 mg PO DAILY@0900,1400 [facility] Stop: 12/21/20 08:59 Last Admin: 11/27/20 14:00 Dose: 300 mg Documented by: Gabapentin (Gabapentin 300 Mg Cap) 600 mg PO HS [facility] Stop: 12/21/20 20:59 Last Admin: 11/26/20 21:07 Dose: 600 mg Documented by: Insulin Aspart (Insulin Aspart 100 Units/Ml 3 Ml Pen) 0 units SC ACHS [facility] Stop: 12/21/20 11:29 Last Admin: 11/27/20 17:12 Dose: 1 units Documented by: Lactulose (Lactulose Syrup 30 Gm/45 Ml Udp) 30 gm PO BID [facility] Stop: 12/23/20 20:59 Last Admin: 11/27/20 09:32 Dose: Not Given Documented by: Levalbuterol HCl (Levalbuterol Hcl 0.63 Mg/3 Ml Neb) 0.63 mg NEB Q6R PRN PRN Reason: Shortness Of Breath Or Wheezing Stop: 12/21/20 06:59 Levofloxacin (Levofloxacin 500 Mg Tab) 500 mg PO DAILY@1100 [facility] Stop: 11/28/20 11:01 Last Admin: 11/27/20 11:37 Dose: 500 mg Documented by: Levothyroxine Sodium (Levothyroxine Sodium 125 Mcg Tablet) 125 mcg PO DAILYBB [facility] Stop: 12/21/20 06:29 Last Admin: 11/27/20 06:20 Dose: 125 mcg Documented by: Lidocaine (Lidocaine 5% 1 Patch) 1 patch TD QAM [facility] Stop: 12/21/20 08:59 Last Admin: 11/27/20 09:24 Dose: 1 patch Documented by: Magnesium Hydroxide (Magnesium Hydroxide Susp 30 Ml Udc) 30 ml PO Q12H PRN PRN Reason: Constipation Stop: 12/21/20 03:49 Meclizine HCl (Meclizine Hcl 25 Mg Tab) 25 mg PO TID PRN PRN Reason: Dizziness Stop: 12/21/20 03:49 Last Admin: 11/26/20 07:43 Dose: 25 mg Documented by: Melatonin (Melatonin 3 Mg Tab) 3 mg PO HS PRN PRN Reason: Sleep Stop: 12/23/20 01:37 Last Admin: 11/24/20 21:24 Dose: 3 mg Documented by: Nitroglycerin (Nitroglycerin Sl 0.4 Mg/Tab Tab) 0.4 mg SL UD PRN PRN Reason: Chest Pain Stop: 12/21/20 03:49 Ondansetron HCl (Ondansetron Inj 2 Mg/Ml 2 Ml Vial) 4 mg IV Q6H PRN PRN Reason: Nausea Stop: 12/21/20 03:49 Pantoprazole Sodium (Pantoprazole 40 Mg Tab) 40 mg PO QAM [facility] Stop: 12/21/20 08:59 Last Admin: 11/27/20 09:29 Dose: 40 mg Documented by: Polyethylene Glycol (Polyethylene (Miralax) 17 Gm Pack) 17 gm PO DAILY PRN PRN Reason: Constipation Stop: 12/21/20 03:49 Pramipexole Dihydrochloride (Pramipexole Dihydrochlo 0.25 Mg Tab) 0.25 mg PO QPM PRN PRN Reason: restless leg(s) Stop: 12/21/20 03:49 Last Admin: 11/26/20 21:16 Dose: 0.25 mg Documented by: Prednisone (Prednisone 10 Mg Tablet) 30 mg PO DAILY [facility]; Taper Stop: 12/05/20 08:59 Last Admin: 11/27/20 09:29 Dose: 30 mg Documented by: Spironolactone (Spironolactone 25 Mg Tab) 50 mg PO [facility] Stop: 12/21/20 08:59 Last Admin: 11/27/20 09:29 Dose: 50 mg Documented by: Umeclidinium Prospect (Umeclidinium Prospect 62.5mcg/Blister 7 Puffs/Inhaler) 1 puffs INH [facility] Stop: 12/21/20 08:59 Last Admin: 11/27/20 09:29 Dose: 1 puffs Documented by: PG Care Time/CCT Total # of Minutes Spent Total Time Spent with Patient: Total time spent is greater than 50% in coordination of care (as documented) at patient's floor/unit and/or counseling patient: Coding Level of Care Code 17996 Subseq Hosp Care Lvl 2 Diagnoses Ileus K56.7 Bacteremia R78.81 Acute respiratory failure with hypoxia and hypercapnia J96.01; J96.02 COPD (chronic obstructive pulmonary disease) J44.9 Sinus tachycardia R00.0 Hyponatremia E87.1 Hypertension I10 Diabetes type 2, controlled E11.9 Hypothyroidism E03.9 Pulmonary nodule R91.1 Current tobacco use Z72.0 Chronic reflux esophagitis K21.0 Ambulatory dysfunction R26.2 Anemia D64.9 Anemia type: unspecified type DVT prophylaxis Z29.9 Time Spent (min) 30 (1) Anemia Anemia type: unspecified type Qualified Code(s): D64.9 - Anemia, unspecified
[2020-11-27] MEDS: MELATONIN 3 MG TAB PO PRN (21:37)
[2020-11-28] MEDS: LEVOTHYROXINE SODIUM 125 MCG TABLET PO SCH (06:24)
[2020-11-28] MEDS: ENOXAPARIN INJ 40 MG/0.4 ML SYR SQ SCH ×2 (06:24→17:18)
--- NOTE | 2020-11-28 07:20 | XRay Report ---
KUB CLINICAL HISTORY: Colonic ileus COMPARISON STUDY: CT of the abdomen and pelvis November 21, 2020. KUB November 27, 2020. FINDINGS: Left femoral internal fixation is incidentally noted. There is no evidence for a bowel obst ruction. Mild gaseous distention of the colon has improved since prior exam. No dilated loops of smal l bowel are identified. Although sensitivity is diminished on this supine exam, there is no evidence for free air. IMPRESSION: Mild gaseous distention of the colon, improved since prior exam. No evidence for a bowel obstruction. ACT 112: Negative or not required by law. Electronically signed by: Devin Kidd M.D. 11/28/2020 7:18 AM
[2020-11-28] MEDS: FUROSEMIDE 40 MG TAB PO SCH (08:43)
[2020-11-28] MEDS: INSULIN ASPART 100 UNITS/ML 3 ML PEN SC SCH ×4 (08:44→21:03)
[2020-11-28] MEDS: DULoxetine HCL 60 MG CAP PO SCH (08:44)
[2020-11-28] MEDS: carvediloL 25 MG TAB PO SCH ×2 (08:44→20:59)
[2020-11-28] MEDS: LIDOCAINE 5% 1 PATCH TD SCH (08:45)
[2020-11-28] MEDS: GABAPENTIN 300 MG CAP PO SCH ×3 (08:45→21:00)
[2020-11-28] MEDS: PANTOprazole 40 MG TAB PO SCH (08:45)
[2020-11-28] MEDS: predniSONE 10 MG TABLET PO SCH (08:45)
[2020-11-28] MEDS: LACTULOSE SYRUP 30 GM/45 ML UDP PO SCH ×2 (08:45→20:59)
[2020-11-28] MEDS: SPIRONOLACTONE 25 MG TAB PO SCH (08:46)
[2020-11-28] MEDS: UMECLIDINIUM BROMIDE 62.5MCG/BLISTER 7 PUFFS/INHALER INH SCH (08:49)
[2020-11-28] MEDS: ACETAMINOPHEN 325 MG TAB PO PRN (10:30)
[2020-11-28] MEDS: levoFLOXacin 500 MG TAB PO SCH (10:30)
--- NOTE | 2020-11-28 12:05 | Hospitalist Progress Note ---
Date of Service November 28, 2020 Assessment & Plan (1) Ileus: Plan: Repeat KUB today 11/28 shows improvement in colonic distension tolerating full liquids, advance to low fiber today No abdominal pain. No nausea or vomiting Move patient from bed to chair for meals and for the evening. (2) Bacteremia: Plan: Currently 1 out of 4 bottles positive for gram-positive cocci. ID with microc occus - no sensitivities to follow Patient positive with procalcitonin initially at 1.54 trending downward to 1.06 and now 0.49 so will continue course of abx Discontinued vancomycin. stop Levaquin today MRSA swab is negative WBCs have improved No evidence of sepsis at this time. (3) Acute respiratory failure with hypoxia and hypercapnia: Plan: Patient with history of COPD, asthma and current tobacco abuse Exam seems to be stabilizing Vanc x 3 days - change to Levofloxacin X 4 more days then stop Continue Incruse Ellipta Titrate prednisone as follows starting 11/24/2020: * 30 mg x 3 days * 20 mg daily x 3 days * 10 mg x 3 days then stop Follow clinically (4) COPD (chronic obstructive pulmonary disease): Plan: No evidence of pulmonary function testing in our system Scanned report from 01/17/2018 reports normal PFTs * FVC 89 percent * FEV1 98 percent * FEV1/FVC 82 * RV 115 percent * TLC 100 * RV/TLC 112 * DLCO 16.67 Patient being placed in rehab. Will talk to her about outpatient follow-up for pulmonary function testing to see if there is progression or any objective evidence of COPD on 4L, try to titrate down (5) Sinus tachycardia: Plan: Patient asymptomatic Most likely secondary to acute illness CTA negative for PE Continue Coreg Continue to follow vital sign per protocol (6) Hyponatremia: Plan: Electrolytes are balanced Patient being treated for fluid overload with furosemide 40 mg PO daily Currently negative >3 Liters Follow serial labs (7) Hypertension: Plan: Continue carvedilol, spironolactone and follow vital signs per protocol No chest pain or tightness reported by patient (8) Diabetes type 2, controlled: Plan: Diet controlled Hemoglobin A1c 5.8 percent Continue diabetic diet (9) Hypothyroidism: Plan: Continue levothyroxine Outpatient management (10) Pulmonary nodule: Plan: Patient continues to smoke Discussed abstention with her CT scan concerning for malignancy Emeterio WESTON discussed with patient. She does not wish for any further work- up for malignancy (11) Current tobacco use: Plan: Patient continues to smoke Probable pulmonary nodule consistent with malignancy -patient aware and deferring on further work-up Recommend abstention Further discussed with patient today to confirm no further work-up for malignancy (12) Chronic reflux esophagitis: Plan: No acute complaints at this time. Continue pantoprazole (13) Ambulatory dysfunction: Plan: PT/OT completed and suggesting inpatient rehab Patient accepted at [facility] as well as [facility]. Patient prefers [facility]. Continue with fall precautions Ambulate with assistance (14) Anemia: Plan: Hemoglobin 10.77 No active bleeding Follow (15) DVT prophylaxis: Plan: Enoxaparin Ambulate as tolerated Plan: Disposition: Patient accepted and prefers to go to [facility]. All IV medications have been discontinued. Angel catheter is being discontinued tonight. At this time, it is anticipated patient will be discharged. Updated son at bedside Admission and Anticipated Discharge Date Admission Date: November 21, 2020 Subjective patient tolerating full liquids, will advance to low fiber, no nausea/vomiting, she had a soft/liquid BM this morning, feels like she will have another today KUB looks improved this morning sugars are stable she is on 4L NC, does not normally wear oxygen, she says she does not have dyspnea, no wheezing no chest pain, no cough, no fever, no edema Review of Systems Review of Systems: All systems reviewed & are unremarkable except as noted in Subjective Respiratory: + dyspnea on exertion; no cough and no dyspnea Cardiovascular: no chest pain and no edema Gastrointestinal: + diarrhea/loose stools; no abdominal pain, no nausea, no vomiting and no constipation Physical Exam Constitutional: well developed, well nourished, + obese and comfortable; no acute distress Neck: trachea midline, no thyromegaly Respiratory: normal respiratory effort and + cough; no respiratory distress and no labored breathing Auscultation: lungs clear to auscultation bilaterally; no crackles, no rales and no wheezes Cardiovascular: RRR, no murmur, no edema Gastrointestinal (Abdomen): Inspection/Auscultation: + abdomen distended and + hypoactive bowel sounds Percussion/Palpation: abdomen soft and + tympanic to percussion; abdomen nontender, no guarding and abdomen not rigid Musculoskeletal: no cyanosis or clubbing, extremities motor strength 5/5 Skin: no rashes, warm and dry Neurologic: normal touch/pain/proprioception, CN's II-XI intact bilaterally, moves all extremities and awake; no focal motor deficits Psychiatric: A+Ox3, euthymic affect Results & Data Results & Data ([facility]) Vital Signs (Past 12 Hours) Vital Signs Temp Pulse Pulse Pulse Pulse Resp BP 11/28/20 08:52 70 11/28/20 08:02 36.7 C 75 20 98/65 L 11/28/20 07:22 68 11/28/20 04:00 36.6 C 63 18 115/79 BP Pulse Ox 11/28/20 08:52 90/60 L 11/28/20 08:02 95 11/28/20 07:22 11/28/20 04:00 92 Laboratory Results Laboratory Results - last 24 hr 11/27/20 11/27/20 11/28/20 16:26 20:35 07:49 POC Glucose 160 H 210 H 96 11/28/20 11:41 POC Glucose 162 H Medications Administered Current Inpatient Medications Acetaminophen (Acetaminophen 325 Mg Tab) 650 mg PO Q4H PRN PRN Reason: Pain or Fever Stop: 12/21/20 03:49 Last Admin: 11/28/20 10:30 Dose: 650 mg Documented by: Al Hydrox/Mg Hydrox/Simethicone (Aluminum/Magnesium Susp 30 Ml Udc) 15 ml PO Q4H PRN PRN Reason: Dyspepsia Stop: 12/21/20 03:49 Carvedilol (Carvedilol 25 Mg Tab) 25 mg PO BID MONIQUE Stop: 12/21/20 08:59 Last Admin: 11/28/20 08:44 Dose: Not Given Documented by: Dextrose (Dextrose 50% 50 Ml Syringe) 25 - 50 ml IV UD PRN; Protocol PRN Reason: Hypoglycemia Protocol Stop: 12/21/20 11:27 Diclofenac Sodium (Diclofenac Sod 1% Gel 100 Gm Tube) 2 gm EXT QID PRN PRN Reason: Pain Stop: 12/21/20 03:49 Duloxetine HCl (Duloxetine Hcl 60 Mg Cap) 60 mg PO DAILY MONIQUE Stop: 12/21/20 08:59 Last Admin: 11/28/20 08:44 Dose: 60 mg Documented by: Enoxaparin Sodium (Enoxaparin Inj 40 Mg/0.4 Ml Syr) 40 mg SQ Q12H MONIQUE Stop: 12/21/20 05:59 Last Admin: 11/28/20 06:24 Dose: 40 mg Documented by: Furosemide (Furosemide 40 Mg Tab) 40 mg PO QAM MONIQUE Stop: 12/27/20 08:59 Last Admin: 11/28/20 08:43 Dose: 40 mg Documented by: Gabapentin (Gabapentin 300 Mg Cap) 300 mg PO DAILY@0900,1400 MONIQUE Stop: 12/21/20 08:59 Last Admin: 11/28/20 08:45 Dose: 300 mg Documented by: Gabapentin (Gabapentin 300 Mg Cap) 600 mg PO HS MONIQUE Stop: 12/21/20 20:59 Last Admin: 11/27/20 21:33 Dose: 600 mg Documented by: Glucagon (Glucagon For Inj 1 Mg Vial) 1 mg SQ UD PRN; Protocol PRN Reason: Hypoglycemia Protocol Stop: 12/21/20 11:27 Glucose (Glucose 10 Tabs/Tube) 4 - 8 tabs PO UD PRN; Protocol PRN Reason: Hypoglycemia Protocol Stop: 12/21/20 11:27 Glucose (Glucose 40% Gel 15 Gm Tube) 15 - 30 gm PO UD PRN; Protocol PRN Reason: Hypoglycemia Protocol Stop: 12/21/20 11:27 Insulin Aspart (Insulin Aspart 100 Units/Ml 3 Ml Pen) 0 units SC ACHS MONIQUE Stop: 12/21/20 11:29 Last Admin: 11/28/20 08:44 Dose: Not Given Documented by: Lactulose (Lactulose Syrup 30 Gm/45 Ml Udp) 30 gm PO BID MONIQUE Stop: 12/23/20 20:59 Last Admin: 11/28/20 08:45 Dose: 30 gm Documented by: Levalbuterol HCl (Levalbuterol Hcl 0.63 Mg/3 Ml Neb) 0.63 mg NEB Q6R PRN PRN Reason: Shortness Of Breath Or Wheezing Stop: 12/21/20 06:59 Levothyroxine Sodium (Levothyroxine Sodium 125 Mcg Tablet) 125 mcg PO DAILYBB [facility] Stop: 12/21/20 06:29 Last Admin: 11/28/20 06:24 Dose: 125 mcg Documented by: Lidocaine (Lidocaine 5% 1 Patch) 1 patch TD QAM [facility] Stop: 12/21/20 08:59 Last Admin: 11/28/20 08:45 Dose: 1 patch Documented by: Magnesium Hydroxide (Magnesium Hydroxide Susp 30 Ml Udc) 30 ml PO Q12H PRN PRN Reason: Constipation Stop: 12/21/20 03:49 Meclizine HCl (Meclizine Hcl 25 Mg Tab) 25 mg PO TID PRN PRN Reason: Dizziness Stop: 12/21/20 03:49 Last Admin: 11/26/20 07:43 Dose: 25 mg Documented by: Melatonin (Melatonin 3 Mg Tab) 3 mg PO HS PRN PRN Reason: Sleep Stop: 12/23/20 01:37 Last Admin: 11/27/20 21:37 Dose: 3 mg Documented by: Miscellaneous (Remove Lidoderm Patch) 1 ea N/A DAILY@2100 [facility] Stop: 12/21/20 20:59 Last Admin: 11/27/20 21:35 Dose: 1 ea Documented by: Miscellaneous (Carbohydrates For Hypoglycemia ) 15 - 30 gm PO UD PRN PRN Reason: Hypoglycemia Protocol Stop: 12/21/20 11:27 Nitroglycerin (Nitroglycerin Sl 0.4 Mg/Tab Tab) 0.4 mg SL UD PRN PRN Reason: Chest Pain Stop: 12/21/20 03:49 Ondansetron HCl (Ondansetron Inj 2 Mg/Ml 2 Ml Vial) 4 mg IV Q6H PRN PRN Reason: Nausea Stop: 12/21/20 03:49 Pantoprazole Sodium (Pantoprazole 40 Mg Tab) 40 mg PO QAM MONIQUE Stop: 12/21/20 08:59 Last Admin: 11/28/20 08:45 Dose: 40 mg Documented by: Polyethylene Glycol (Polyethylene (Miralax) 17 Gm Pack) 17 gm PO DAILY PRN PRN Reason: Constipation Stop: 12/21/20 03:49 Pramipexole Dihydrochloride (Pramipexole Dihydrochlo 0.25 Mg Tab) 0.25 mg PO QPM PRN PRN Reason: restless leg(s) Stop: 12/21/20 03:49 Last Admin: 11/26/20 21:16 Dose: 0.25 mg Documented by: Prednisone (Prednisone 10 Mg Tablet) 30 mg PO DAILY [facility]; Taper Stop: 12/05/20 08:59 Last Admin: 11/28/20 08:45 Dose: 30 mg Documented by: Spironolactone (Spironolactone 25 Mg Tab) 50 mg PO QAM MONIQUE Stop: 12/21/20 08:59 Last Admin: 11/28/20 08:46 Dose: 50 mg Documented by: Umeclidinium [place] (Umeclidinium [place] 62.5mcg/Blister 7 Puffs/Inhaler) 1 puffs INH QAM MONIQUE Stop: 12/21/20 08:59 Last Admin: 11/28/20 08:49 Dose: 1 puffs Documented by: PG Care Time/CCT Total # of Minutes Spent Total Time Spent with Patient: Total time spent is greater than 50% in coordination of care (as documented) at patient's floor/unit and/or counseling patient: Coding Level of Care Code 91270 Subseq Hosp Care Lvl 2 Diagnoses Ileus K56.7 Bacteremia R78.81 Acute respiratory failure with hypoxia and hypercapnia J96.01; J96.02 COPD (chronic obstructive pulmonary disease) J44.9 Sinus tachycardia R00.0 Hyponatremia E87.1 Hypertension I10 Diabetes type 2, controlled E11.9 Hypothyroidism E03.9 Pulmonary nodule R91.1 Current tobacco use Z72.0 Chronic reflux esophagitis K21.0 Ambulatory dysfunction R26.2 Anemia D64.9 Anemia type: unspecified type DVT prophylaxis Z29.9 (1) Anemia Anemia type: unspecified type Qualified Code(s): D64.9 - Anemia, unspecified
[2020-11-28] MEDS ORDERED: MICONAZOLE NITRATE POWDER 43 GM EXT PRN (12:22)
[2020-11-29] MEDS: ACETAMINOPHEN 325 MG TAB PO PRN ×3 (00:58→23:46)
[2020-11-29] MEDS: DICLOFENAC SOD 1% GEL 100 GM TUBE EXT PRN ×2 (00:58→08:52)
[2020-11-29] MEDS: LEVOTHYROXINE SODIUM 125 MCG TABLET PO SCH (06:14)
[2020-11-29] MEDS: ENOXAPARIN INJ 40 MG/0.4 ML SYR SQ SCH ×2 (06:14→17:02)
[2020-11-29] MEDS: LACTULOSE SYRUP 30 GM/45 ML UDP PO SCH ×2 (06:19→20:42)
[2020-11-29] MEDS: INSULIN ASPART 100 UNITS/ML 3 ML PEN SC SCH ×4 (08:41→20:41)
[2020-11-29] MEDS: GABAPENTIN 300 MG CAP PO SCH ×3 (08:46→20:41)
[2020-11-29] MEDS: LIDOCAINE 5% 1 PATCH TD SCH (08:46)
[2020-11-29] MEDS: FUROSEMIDE 40 MG TAB PO SCH (08:46)
[2020-11-29] MEDS: DULoxetine HCL 60 MG CAP PO SCH (08:46)
[2020-11-29] MEDS: PANTOprazole 40 MG TAB PO SCH (08:47)
[2020-11-29] MEDS: SPIRONOLACTONE 25 MG TAB PO SCH (08:47)
[2020-11-29] MEDS: UMECLIDINIUM BROMIDE 62.5MCG/BLISTER 7 PUFFS/INHALER INH SCH (08:47)
[2020-11-29] MEDS: predniSONE 10 MG TABLET PO SCH (08:47)
[2020-11-29] MEDS: carvediloL 25 MG TAB PO SCH ×2 (08:52→20:40)
--- NOTE | 2020-11-29 12:56 | Hospitalist Progress Note ---
Date of Service November 29, 2020 Assessment & Plan (1) Ileus: Plan: Repeat KUB on 11/28 shows improvement in colonic distension tolerating low fiber today No abdominal pain. No nausea or vomiting Move patient from bed to chair for meals and for the evening. had a BM today check BMP tomorrow (2) Bacteremia: Plan: Currently 1 out of 4 bottles positive for gram-positive cocci. ID with micrococcus - no sensitivities to follow Patient positive with procalcitonin initially at 1.54 trending downward to 1.06 and now 0.49 so will continue course of abx Discontinued vancomycin. stop Levaquin 11/28 MRSA swab is negative WBCs have improved No evidence of sepsis at this time. (3) Acute respiratory failure with hypoxia and hypercapnia: Plan: Patient with history of COPD, asthma and current tobacco abuse Exam seems to be stabilizing Vanc x 3 days - changed to Levofloxacin, now done Continue Incruse Ellipta Titrate prednisone as follows starting 11/24/2020: * 30 mg x 3 days * 20 mg daily x 3 days * 10 mg x 3 days then stop down to 1L NC from 4L NC, goal for her would be 90% with her COPD diagnosis can go to SNF on oxygen if needed, continue to wean (4) COPD (chronic obstructive pulmonary disease): Plan: No evidence of pulmonary function testing in our system Scanned report from 01/17/2018 reports normal PFTs * FVC 89 percent * FEV1 98 percent * FEV1/FVC 82 * RV 115 percent * TLC 100 * RV/TLC 112 * DLCO 16.67 Patient being placed in rehab. Will talk to her about outpatient follow-up for pulmonary function testing to see if there is progression or any objective evidence of COPD down to 1L today (5) Hyponatremia: Plan: Electrolytes are balanced Patient being treated for fluid overload with furosemide 40 mg PO daily Currently negative >3 Liters BMP tomorrow (6) Hypertension: Plan: Continue carvedilol, spironolactone and follow vital signs per protocol No chest pain or tightness reported by patient (7) Diabetes type 2, controlled: Plan: Diet controlled Hemoglobin A1c 5.8 percent Continue diabetic diet (8) Hypothyroidism: Plan: Continue levothyroxine Outpatient management (9) Pulmonary nodule: Plan: Patient continues to smoke Discussed abstention with her CT scan concerning for malignancy Emeterio WESTON discussed with patient. She does not wish for any further work- up for malignancy (10) Current tobacco use: Plan: Patient continues to smoke Probable pulmonary nodule consistent with malignancy -patient aware and deferring on further work-up Recommend abstention Further discussed with patient today to confirm no further work-up for malignancy (11) Chronic reflux esophagitis: Plan: No acute complaints at this time. Continue pantoprazole (12) Ambulatory dysfunction: Plan: PT/OT completed and suggesting inpatient rehab Patient accepted at [facility] as well as [facility]. Patient prefers [facility]. Continue with fall precautions Ambulate with assistance (13) Anemia: Plan: Hemoglobin 10.77 No active bleeding Follow (14) DVT prophylaxis: Plan: Enoxaparin Ambulate as tolerated Plan: Disposition: Patient accepted and prefers to go to [facility]. All IV medications have been discontinued. Angel catheter is being discontinued tonight. At this time, it is anticipated patient will be discharged. Updated son at bedside Admission and Anticipated Discharge Date Admission Date: November 21, 2020 Subjective patient doing okay with low fiber diet, she isn't pleased with options but keeping food down, no nausea she had a BM again today, soft/liquid but more formed no abdominal pain, no fever breathing well on 4L, she was 97%, I took her down to 2L and she was 96%, room air she was 96% asked RN to check her again later, eventually she required 1L again no wheezing, no cough Review of Systems Review of Systems: All systems reviewed & are unremarkable except as noted in Subjective Physical Exam Constitutional: well developed, well nourished, + obese and comfortable; no acute distress Neck: trachea midline, no thyromegaly Respiratory: normal respiratory effort and + cough; no respiratory distress and no labored breathing Auscultation: lungs clear to auscultation bilaterally; no crackles, no rales and no wheezes Cardiovascular: RRR, no murmur, no edema Gastrointestinal (Abdomen): Inspection/Auscultation: + abdomen distended and + hypoactive bowel sounds Percussion/Palpation: abdomen soft and + tympanic to percussion; abdomen nontender, no guarding and abdomen not rigid Musculoskeletal: no cyanosis or clubbing, extremities motor strength 5/5 Skin: no rashes, warm and dry Neurologic: normal touch/pain/proprioception, CN's II-XI intact bilaterally, moves all extremities and awake; no focal motor deficits Psychiatric: A+Ox3, euthymic affect Results & Data Results & Data ([facility]) Vital Signs (Past 12 Hours) Vital Signs Temp Pulse Pulse Pulse Resp BP BP 11/29/20 11:35 37.1 C 70 18 110/69 11/29/20 07:59 36.6 C 68 18 107/63 11/29/20 07:28 62 11/29/20 04:00 36.8 C 64 18 115/75 11/29/20 01:07 69 22 Pulse Ox 11/29/20 11:35 96 11/29/20 07:59 97 11/29/20 07:28 11/29/20 04:00 97 11/29/20 01:07 95 Laboratory Results Laboratory Results - last 24 hr 11/28/20 11/28/20 11/29/20 16:42 20:13 07:41 POC Glucose 140 H 165 H 145 H 11/29/20 11:30 POC Glucose 119 H Medications Administered Current Inpatient Medications Acetaminophen (Acetaminophen 325 Mg Tab) 650 mg PO Q4H PRN PRN Reason: Pain or Fever Stop: 12/21/20 03:49 Last Admin: 11/29/20 00:58 Dose: 650 mg Documented by: Al Hydrox/Mg Hydrox/Simethicone (Aluminum/Magnesium Susp 30 Ml Udc) 15 ml PO Q4H PRN PRN Reason: Dyspepsia Stop: 12/21/20 03:49 Carvedilol (Carvedilol 25 Mg Tab) 25 mg PO BID MONIQUE Stop: 12/21/20 08:59 Last Admin: 11/29/20 08:52 Dose: Not Given Documented by: Dextrose (Dextrose 50% 50 Ml Syringe) 25 - 50 ml IV UD PRN; Protocol PRN Reason: Hypoglycemia Protocol Stop: 12/21/20 11:27 Diclofenac Sodium (Diclofenac Sod 1% Gel 100 Gm Tube) 2 gm EXT QID PRN PRN Reason: Pain Stop: 12/21/20 03:49 Last Admin: 11/29/20 08:52 Dose: 2 gm Documented by: Duloxetine HCl (Duloxetine Hcl 60 Mg Cap) 60 mg PO DAILY MONIQUE Stop: 12/21/20 08:59 Last Admin: 11/29/20 08:46 Dose: 60 mg Documented by: Enoxaparin Sodium (Enoxaparin Inj 40 Mg/0.4 Ml Syr) 40 mg SQ Q12H [facility] Stop: 12/21/20 05:59 Last Admin: 11/29/20 06:14 Dose: 40 mg Documented by: Furosemide (Furosemide 40 Mg Tab) 40 mg PO QAM MONIQUE Stop: 12/27/20 08:59 Last Admin: 11/29/20 08:46 Dose: 40 mg Documented by: Gabapentin (Gabapentin 300 Mg Cap) 300 mg PO DAILY@0900,1400 MONIQUE Stop: 12/21/20 08:59 Last Admin: 11/29/20 08:46 Dose: 300 mg Documented by: Gabapentin (Gabapentin 300 Mg Cap) 600 mg PO HS MONIQUE Stop: 12/21/20 20:59 Last Admin: 11/28/20 21:00 Dose: 600 mg Documented by: Glucagon (Glucagon For Inj 1 Mg Vial) 1 mg SQ UD PRN; Protocol PRN Reason: Hypoglycemia Protocol Stop: 12/21/20 11:27 Glucose (Glucose 10 Tabs/Tube) 4 - 8 tabs PO UD PRN; Protocol PRN Reason: Hypoglycemia Protocol Stop: 12/21/20 11:27 Glucose (Glucose 40% Gel 15 Gm Tube) 15 - 30 gm PO UD PRN; Protocol PRN Reason: Hypoglycemia Protocol Stop: 12/21/20 11:27 Insulin Aspart (Insulin Aspart 100 Units/Ml 3 Ml Pen) 0 units SC ACHS [facility] Stop: 12/21/20 11:29 Last Admin: 11/29/20 12:12 Dose: 2 units Documented by: Lactulose (Lactulose Syrup 30 Gm/45 Ml Udp) 30 gm PO BID [facility] Stop: 12/23/20 20:59 Last Admin: 11/29/20 06:19 Dose: 30 gm Documented by: Levalbuterol HCl (Levalbuterol Hcl 0.63 Mg/3 Ml Neb) 0.63 mg NEB Q6R PRN PRN Reason: Shortness Of Breath Or Wheezing Stop: 12/21/20 06:59 Last Admin: 11/29/20 01:07 Dose: 0.63 mg Documented by: Levothyroxine Sodium (Levothyroxine Sodium 125 Mcg Tablet) 125 mcg PO DAILYBB [facility] Stop: 12/21/20 06:29 Last Admin: 11/29/20 06:14 Dose: 125 mcg Documented by: Lidocaine (Lidocaine 5% 1 Patch) 1 [facility] Stop: 12/21/20 08:59 Last Admin: 11/29/20 08:46 Dose: 1 patch Documented by: Magnesium Hydroxide (Magnesium Hydroxide Susp 30 Ml Udc) 30 ml PO Q12H PRN PRN Reason: Constipation Stop: 12/21/20 03:49 Meclizine HCl (Meclizine Hcl 25 Mg Tab) 25 mg PO TID PRN PRN Reason: Dizziness Stop: 12/21/20 03:49 Last Admin: 11/26/20 07:43 Dose: 25 mg Documented by: Melatonin (Melatonin 3 Mg Tab) 3 mg PO HS PRN PRN Reason: Sleep Stop: 12/23/20 01:37 Last Admin: 11/27/20 21:37 Dose: 3 mg Documented by: Miconazole Nitrate (Miconazole Nitrate Powder 43 Gm) 1 appln EXT PRN PRN PRN Reason: Affected Skin Folds Stop: 12/28/20 12:21 Miscellaneous (Remove Lidoderm Patch) 1 ea N/A DAILY@2100 [facility] Stop: 12/21/20 20:59 Last Admin: 11/28/20 21:06 Dose: 1 ea Documented by: Miscellaneous (Carbohydrates For Hypoglycemia ) 15 - 30 gm PO UD PRN PRN Reason: Hypoglycemia Protocol Stop: 12/21/20 11:27 Nitroglycerin (Nitroglycerin Sl 0.4 Mg/Tab Tab) 0.4 mg SL UD PRN PRN Reason: Chest Pain Stop: 12/21/20 03:49 Ondansetron HCl (Ondansetron Inj 2 Mg/Ml 2 Ml Vial) 4 mg IV Q6H PRN PRN Reason: Nausea Stop: 12/21/20 03:49 Pantoprazole Sodium (Pantoprazole 40 Mg Tab) 40 mg [facility] Stop: 12/21/20 08:59 Last Admin: 11/29/20 08:47 Dose: 40 mg Documented by: Polyethylene Glycol (Polyethylene (Miralax) 17 Gm Pack) 17 gm PO DAILY PRN PRN Reason: Constipation Stop: 12/21/20 03:49 Pramipexole Dihydrochloride (Pramipexole Dihydrochlo 0.25 Mg Tab) 0.25 mg PO QPM PRN PRN Reason: restless leg(s) Stop: 12/21/20 03:49 Last Admin: 11/26/20 21:16 Dose: 0.25 mg Documented by: Prednisone (Prednisone 10 Mg Tablet) 20 mg PO DAILY MONIQUE; Taper Stop: 12/05/20 08:59 Last Admin: 11/29/20 08:47 Dose: 20 mg Documented by: Spironolactone (Spironolactone 25 Mg Tab) 50 mg PO QAM MONIQUE Stop: 12/21/20 08:59 Last Admin: 11/29/20 08:47 Dose: 50 mg Documented by: Umeclidinium [place] (Umeclidinium [place] 62.5mcg/Blister 7 Puffs/Inhaler) 1 puffs INH QAM MONIQUE Stop: 12/21/20 08:59 Last Admin: 11/29/20 08:47 Dose: 1 puffs Documented by: PG Care Time/CCT Total # of Minutes Spent Total Time Spent with Patient: Total time spent is greater than 50% in coordination of care (as documented) at patient's floor/unit and/or counseling patient: Coding Level of Care Code 24607 Subseq Hosp Care Lvl 2 Diagnoses Ileus K56.7 Bacteremia R78.81 Acute respiratory failure with hypoxia and hypercapnia J96.01; J96.02 COPD (chronic obstructive pulmonary disease) J44.9 Hyponatremia E87.1 Hypertension I10 Diabetes type 2, controlled E11.9 Hypothyroidism E03.9 Pulmonary nodule R91.1 Current tobacco use Z72.0 Chronic reflux esophagitis K21.0 Ambulatory dysfunction R26.2 Anemia D64.9 Anemia type: unspecified type DVT prophylaxis Z29.9 (1) Anemia Anemia type: unspecified type Qualified Code(s): D64.9 - Anemia, unspecified
[2020-11-29] MEDS: PRAMIPEXOLE DIHYDROCHLO 0.25 MG TAB PO PRN (23:53)
[2020-11-30] MEDS: ENOXAPARIN INJ 40 MG/0.4 ML SYR SQ SCH ×2 (05:37→17:16)
[2020-11-30] MEDS: LEVOTHYROXINE SODIUM 125 MCG TABLET PO SCH (05:38)
[2020-11-30] MEDS: DULoxetine HCL 60 MG CAP PO SCH (08:10)
[2020-11-30] MEDS: PANTOprazole 40 MG TAB PO SCH (08:11)
[2020-11-30] MEDS: FUROSEMIDE 40 MG TAB PO SCH (08:11)
[2020-11-30] MEDS: predniSONE 10 MG TABLET PO SCH (08:11)
[2020-11-30] MEDS: SPIRONOLACTONE 25 MG TAB PO SCH (08:11)
[2020-11-30] MEDS: GABAPENTIN 300 MG CAP PO SCH ×2 (08:12→14:42)
[2020-11-30] MEDS: LIDOCAINE 5% 1 PATCH TD SCH (08:12)
[2020-11-30] MEDS: UMECLIDINIUM BROMIDE 62.5MCG/BLISTER 7 PUFFS/INHALER INH SCH (08:13)
[2020-11-30] MEDS: LACTULOSE SYRUP 30 GM/45 ML UDP PO SCH ×2 (08:13→20:41)
[2020-11-30] MEDS: carvediloL 25 MG TAB PO SCH ×2 (08:13→20:40)
[2020-11-30] MEDS: INSULIN ASPART 100 UNITS/ML 3 ML PEN SC SCH ×4 (08:18→20:41)
--- NOTE | 2020-11-30 08:55 | Hospitalist Progress Note ---
Date of Service November 30, 2020 Assessment & Plan (1) Ileus: Plan: Resolving tolerating low fiber today No abdominal pain. No nausea or vomiting Pt is looking forward to rehab check [facility] tomorrow (2) Bacteremia: Plan: Currently 1 out of 4 bottles positive for gram-positive cocci. ID with micrococcus - no sensitivities to follow Patient positive with procalcitonin initially at 1.54 trending downward to 1.06 and now 0.49 so will continue course of abx Discontinued vancomycin. stop Levaquin 11/28 MRSA swab is negative WBCs have improved No evidence of sepsis at this time. will recheck ua as with diarrhea from lactulose ( due to liver dysfunction) is at risk (3) Acute respiratory failure with hypoxia and hypercapnia: Plan: Patient with history of COPD, asthma and current tobacco abuse Exam seems to be stabilizing Vanc x 3 days - changed to Levofloxacin, now done Continue Incruse Ellipta Titrate prednisone as follows starting 11/24/2020: * 30 mg x 3 days * 20 mg daily x 3 days * 10 mg x 3 days then stop tolerating times on room air (4) COPD (chronic obstructive pulmonary disease): Plan: No evidence of pulmonary function testing in our system Scanned report from 01/17/2018 reports normal PFTs * FVC 89 percent * FEV1 98 percent * FEV1/FVC 82 * RV 115 percent * TLC 100 * RV/TLC 112 * DLCO 16.67 Patient being placed in rehab. Will talk to her about outpatient follow-up for pulmonary function testing to see if there is progression or any objective evidence of COPD down to 1L today (5) Hyponatremia: Plan: Electrolytes are balanced Patient being treated for fluid overload with furosemide 40 mg PO daily stable renal function (6) Hypertension: Plan: Continue carvedilol, spironolactone and follow vital signs per protocol No chest pain or tightness reported by patient (7) Diabetes type 2, controlled: Plan: Diet controlled Hemoglobin A1c 5.8 percent Continue diabetic diet (8) Hypothyroidism: Plan: Continue levothyroxine Outpatient management (9) Pulmonary nodule: Plan: Patient continues to smoke Discussed abstention with her CT scan concerning for malignancy, will have on lung nodule program Emeterio WESTON discussed with patient. She does not wish for any further work- up for malignancy (10) Current tobacco use: Plan: Patient continues to smoke Probable pulmonary nodule consistent with malignancy -patient aware and deferring on further work-up Recommend abstention Further discussed with patient today to confirm no further work-up for malignancy (11) Chronic reflux esophagitis: Plan: No acute complaints at this time. Continue pantoprazole (12) Ambulatory dysfunction: Plan: PT/OT completed and suggesting inpatient rehab Patient accepted at [place] as well as [place]. Patient prefers [facility]. Continue with fall precautions Ambulate with assistance (13) Anemia: Plan: Hemoglobin 10.77 No active bleeding Follow (14) DVT prophylaxis: Plan: Enoxaparin Ambulate as tolerated Plan: Disposition: Patient accepted and prefers to go to [place]. Admission and Anticipated Discharge Date Admission Date: November 21, 2020 Subjective Patient was seen on 2 occasions 1 at the request of her son he felt she was more confused. When I visited the patient on both occasions she seemed to be mentally competent to me although sometimes she stumbles over a few words or kind of mumbles at times. The patient denies having any increasing shortness of breath she does complain of being weak and is looking forward to going to rehab. She is concerned about having transportation to rehab. Review of Systems Review of Systems: Mild distress and fatigue no headache, no visual changes no speech or swallowing issues no chest pain, pressure or palpitations Baseline shortness of breath, no cough or wheezes no abdominal pain, nausea or vomiting, diarrhea or constipation no dysuria, hematuria or frequency no focal joint pain or swelling no back pain, CVA tenderness or radicular pain no bruising, bleeding or rashes no focal signs of weakness or numbness or altered sensation no complaints of anxiety or depression.. Physical Exam Physical Exam: The patient appeared well nourished and normally developed. Vital signs as documented. Head exam is normocephalic atraumatic Neck is without JVD, thyromegaly, or carotid bruits. Lungs are diminished but without focal loss, non productive cough Cardiac exam, Rhythm is regular.. BRITTANY, rubs or gallops. Abdominal exam reveals normal bowel sounds, soft non tender, no masses Extremities are trace edematous and both pedal pulses are present Neurologic exam is alert and oriented, no focal loss of strength or sensation Skin is without bruises or rashes Psychologically is without concerns for anxiety or depression Results & Data Results & Data ([facility]) Vital Signs (Past 12 Hours) Vital Signs Temp Pulse Pulse Pulse Resp BP BP 11/30/20 07:49 97.9 F 67 18 136/70 11/30/20 07:00 67 11/30/20 03:32 98.2 F 69 18 121/77 11/30/20 01:51 73 11/29/20 23:18 97.9 F 74 18 106/61 Pulse Ox 11/30/20 07:49 95 11/30/20 07:00 11/30/20 03:32 93 11/30/20 01:51 11/29/20 23:18 93 PG Care Time/CCT Total # of Minutes Spent Total Time Spent with Patient: Total time spent is greater than 50% in coordination of care (as documented) at patient's floor/unit and/or counseling patient: Coding Level of Care Code 45702 Subseq Hosp Care Lvl 2 Diagnoses Ileus K56.7 Bacteremia R78.81 Acute respiratory failure with hypoxia and hypercapnia J96.01; J96.02 COPD (chronic obstructive pulmonary disease) J44.9 Hyponatremia E87.1 Hypertension I10 Diabetes type 2, controlled E11.9 Hypothyroidism E03.9 Pulmonary nodule R91.1 Current tobacco use Z72.0 Chronic reflux esophagitis K21.0 Ambulatory dysfunction R26.2 Anemia D64.9 Anemia type: unspecified type DVT prophylaxis Z29.9 (1) Anemia Anemia type: unspecified type Qualified Code(s): D64.9 - Anemia, unspecified
[2020-11-30 08:56] LABS: Hematocrit (blood only) 44.2 % (37-47); Hemoglobin 14.7 g/dL (12.0-16.0); Mean Corpuscular Hemoglobin 38.7 pg (25-34); Mean Corpuscular Hgb Conc 33.3 g/dL (32-36); Mean Corpuscular Volume 116.3 fL (80-100); Mean Platelet Volume 10.1 fL (7.4-10.4); Platelet Count 145 K/uL (130-400); RDW Coefficient of Variation 12.9 % (11.5-14.5); RDW Standard Deviation 55.2 fL (36.4-46.3); White Blood Count 10.54 K/uL (4.8-10.8)
--- NOTE | 2020-11-30 09:21 | Electrocardiogram Report ---
Test Reason : Blood Pressure : / mmHG Vent. Rate : 073 BPM Atrial Rate : 073 BPM P-R Int : 190 ms QRS Dur : 074 ms QT Int : 388 ms P-R-T Axes : 063 -10 044 degrees QTc Int : 427 ms Normal sinus rhythm Inferior infarct (cited on or before 15-NOV-2020) Anterolateral infarct (cited on or before 15-NOV-2020) Abnormal ECG When compared with ECG of 26-NOV-2020 08:07, Premature atrial complexes are no longer Present Confirmed by Toni Domínguez ([id number]) on 11/30/2020 9:20:50 AM Referred By: REFERRED SELF Confirmed By:Toni Domínguez
[2020-11-30 09:30] LABS: BUN Creatinine Ratio 23.1 (10-20); Calcium 9.4 mg/dl (8.5-10.1); Creatinine Clr Calc Pharmacy 48.5 ml/min; Est GFR (African American) 53.3 ml/min; Potassium 3.6 mmol/L (3.5-5.1)
[2020-11-30] MEDS: ACETAMINOPHEN 325 MG TAB PO PRN (10:43)
[2020-11-30 17:36] LABS: Albumin Globulin Ratio 0.6 (0.9-2); Albumin Level 2.8 gm/dl (3.4-5.0); BUN Creatinine Ratio 22.7 (10-20); Bilirubin,Total 0.8 mg/dl (0.2-1); Calcium 9.5 mg/dl (8.5-10.1); Creatinine Clr Calc Pharmacy 48.5 ml/min; Est GFR (African American) 53.3 ml/min; Globulin 4.3 gm/dl (2.5-4.0); Potassium 4.3 mmol/L (3.5-5.1); Total Protein 7.1 gm/dl (6.4-8.2)
[2020-11-30 18:46] LABS: Appearance Urine Clear (Clear); Bilirubin Urine Negative (Negative); Blood Urine Negative (Negative); Color Urine Yellow; Glucose Urine UA Negative (Negative); Ketones Urine Trace (Negative); Leukocyte Esterase Urine Negative (Negative); Nitrite Urine Negative (Negative); Protein Urine Negative (Negative); Specific Gravity Urine 1.019 (1.000-1.030); Urobilinogen Urine Negative (Negative)
[2020-11-30] MEDS: PRAMIPEXOLE DIHYDROCHLO 0.25 MG TAB PO PRN (20:47)
[2020-12-01] MEDS: ENOXAPARIN INJ 40 MG/0.4 ML SYR SQ SCH (06:05)
[2020-12-01] MEDS: LEVOTHYROXINE SODIUM 125 MCG TABLET PO SCH (06:05)
[2020-12-01] MEDS: FUROSEMIDE 40 MG TAB PO SCH (07:59)
[2020-12-01] MEDS: PANTOprazole 40 MG TAB PO SCH (07:59)
[2020-12-01] MEDS: predniSONE 10 MG TABLET PO SCH (07:59)
[2020-12-01] MEDS: SPIRONOLACTONE 25 MG TAB PO SCH (07:59)
[2020-12-01] MEDS: LACTULOSE SYRUP 30 GM/45 ML UDP PO SCH (07:59)
[2020-12-01] MEDS: DULoxetine HCL 60 MG CAP PO SCH (08:00)
[2020-12-01] MEDS: LIDOCAINE 5% 1 PATCH TD SCH (08:00)
[2020-12-01] MEDS: carvediloL 25 MG TAB PO SCH (08:00)
[2020-12-01] MEDS: UMECLIDINIUM BROMIDE 62.5MCG/BLISTER 7 PUFFS/INHALER INH SCH (08:48)
[2020-12-01] MEDS: INSULIN ASPART 100 UNITS/ML 3 ML PEN SC SCH ×2 (09:22→12:39)
[2020-12-01] MEDS: ACETAMINOPHEN 325 MG TAB PO PRN (13:40)
--- NOTE | 2020-12-01 16:43 | Discharge Summary ---
Date of Service December 01, 2020 Principal Diagnosis copd exacerbation micrococcus bacteremia ileus resolved Discharge Exam The patient appeared well Vital signs as documented. Lungs are poor air movement but no focal air loss Cardiac exam, Rhythm is regular.. No murmurs, rubs or gallops. Abdominal exam reveals normal bowel sounds, soft non tender, no masses Extremities are nonedematous and both pedal pulses are normal. Neurologic exam is alert and oriented, no focal loss of strength or sensation Skin is without bruises or rashes Psychologically is without concerns for anxiety or depression. Discharge Data Allergies Allergy/AdvReac Type Severity Reaction Status Date / Time aspirin AdvReac Intermediate advised Verified 11/20/20 23:57 not to take d/t cirrhosis and gi bleed cortisone AdvReac Intermediate "WEIRD Verified 11/20/20 23:57 FEELING NSAIDS (Non-Steroidal AdvReac Intermediate advised Verified 11/20/20 23:57 Anti-Inflamma not to take d/t cirrhosis and gi bleed Consultations 11/21/20 00:03 ED Decision to Admit Stat 12/01/20 09:11 Consult Lung Nodule Program Routine Ordered Studies 11/21/20 01:26 CT chest diagnostic wo con Urgent 11/21/20 02:50 CT abd pelvis wo con Urgent 11/21/20 09:18 CT angio chest PE protocol Stat Hospital Course (1) Acute respiratory failure with hypoxia and hypercapnia: Patient with history of COPD, asthma and current tobacco abuse Exam seems to be stabilizing Vanc x 3 days - changed to Levofloxacin, now done Continue Incruse Ellipta Titrate prednisone as follows starting 11/24/2020: * 30 mg x 3 days * 20 mg daily x 3 days * 10 mg x 3 days then stop tolerating times on room air (2) COPD (chronic obstructive pulmonary disease): No evidence of pulmonary function testing in our system Scanned report from 01/17/2018 reports normal PFTs * FVC 89 percent * FEV1 98 percent * FEV1/FVC 82 * RV 115 percent * TLC 100 * RV/TLC 112 * DLCO 16.67 Patient being placed in rehab. Will talk to her about outpatient follow-up for pulmonary function testing to see if there is progression or any objective evidence of COPD down to 1L today (3) Bacteremia: Currently 1 out of 4 bottles positive for gram-positive cocci. ID with micrococcus - no sensitivities to follow Patient positive with procalcitonin initially at 1.54 trending downward to 1.06 and now 0.49 so will continue course of abx Discontinued vancomycin. stopped Levaquin 11/28 MRSA swab is negative WBCs have improved No evidence of sepsis at this time. there is a pending repeat urine culture at time of discharge (4) Hyponatremia: Electrolytes are balanced Patient being treated for fluid overload with furosemide 40 mg PO daily stable renal function (5) Hypertension: Continue carvedilol, spironolactone No chest pain or tightness reported by patient (6) Ileus: Resolved tolerating low fiber diet No abdominal pain. No nausea or vomiting Pt is looking forward to rehab (7) Diabetes type 2, controlled: Diet controlled Hemoglobin A1c 5.8 percent (8) Hypothyroidism: Continue levothyroxine Outpatient management (9) Pulmonary nodule: Patient continues to smoke Discussed abstention with her CT scan concerning for malignancy, will have on lung nodule program Emeterio WESTON discussed with patient. She does not wish for any further work- up for malignancy (10) Current tobacco use: Patient continues to smoke Probable pulmonary nodule consistent with malignancy -patient aware and deferring on further work-up Recommend abstention Further discussed with patient prior to discharge confirm desire no further work-up for malignancy (11) Chronic reflux esophagitis: No acute complaints at this time. Continue pantoprazole (12) Ambulatory dysfunction: PT/OT completed and suggesting inpatient rehab Continue with fall precautions Ambulate with assistance (13) Anemia: Hemoglobin 10.77 No active bleeding Follow Disposition: Patient accepted and prefers to go to [place]. Total Time Total Time Spent Total Time Spent (In Minutes): It required greater than 30 minutes to prepare this patient for discharge Discharge Plan Discharge Items Patient Disposition: Transfer [facility] Reason For Visit: COPD EXACERBATION Discharge Diagnosis: copd exacerbation micrococcus bacteremia acute respiratory failure with hypoxia and hypercapnea chronic hyponatremia-> loose fluid restriction recommended Pulmonary nodul-> pt declined further work up tobacco abuse chronic liver disease Activity: Per Instructions section Activity Comment: per PT /Ot orders Non-emergency contact: Primary Care Provider Call non-emergency contact if: your symptoms worsen and you have a fever Follow-up/Referrals: Courtney Jules DO [Primary Care Provider] - Diet: Heart Healthy Fluids: 1800ml (7 cups) Addtl Attending Provider Instructions: Please continue to have a fluid restriction and watch the patients sodium level we will have our lung nodule program enroll you for a follow up chest CT or image, you may choose to decline that when ordered but it would be recommended to follow up based on the images done this admission continue to adjust your lactulose to assure at least 2 bowel movements a day please keep intertrigo areas clean and dry, on the left groin you may apply a small amount of antibiotic ointment and a sterile dressing until the open areas heal, if you have access to wound care please have them review on intake Pending Studies at Discharge: Yes Stand-Alone Forms: [facility] Skilled Items Patient informed of condition?: Yes DNR: Yes Discharge Level of Care: Skilled Communicable Disease: No Discharge Prognosis: Stable Lines: None Urinary Catheter: No Medications and DC Order Prescriptions: New Incruse Ellipta 62.5 mcg/actuation Blister With Device 1 inh inhalation QAM Qty: 30 RF: 0 levalbuterol HCl 0.63 mg/3 mL Solution For Nebulization 0.63 mg NEB Q6R PRN (Reason: shortness of breath or wheezing) Qty: 3 RF: 0 prednisone 10 mg Tablet 10 mg PO DAILY Qty: 5 RF: 0 lidocaine 5 % Adhesive Patch,Medicated 1 patch transdermal QAM Qty: 15 RF: 0 Desenex 2 % Powder 1 applic EXT PRN PRN (Reason: intertrigo) Qty: 43 RF: 0 insulin aspart U-100 [Novolog Flexpen U-100 Insulin] 100 unit/mL (3 mL) Insulin Pen 1 unit SC ACHS Qty: 3 RF: 0 Continued ferrous sulfate [Iron (ferrous sulfate)] 325 mg (65 mg iron) tablet 325 mg PO BID Qty: 180 RF: 1 levothyroxine [Synthroid] 125 mcg tablet 125 mcg PO QAM Qty: 90 RF: 1 (DME) blood-glucose meter [OneTouch UltraMini] Kit See Rx Instructions .ROUTE .MEDSUPPLY Qty: 1 RF: 0 (DME) blood-glucose meter [OneTouch Ultra2 Meter] Misc See Rx Instructions .ROUTE .MEDSUPPLY Qty: 1 RF: 0 carvedilol [Coreg] 25 mg tablet 25 mg PO BID Qty: 180 RF: 1 pantoprazole [Protonix] 40 mg tablet,delayed release (DR/EC) 40 mg PO QAM Qty: 90 RF: 1 pramipexole 0.25 mg tablet 0.25 mg PO QPM PRN (Reason: restless leg(s)) Qty: 90 RF: 1 diclofenac sodium 1 % gel 2 g topical QID PRN (Reason: Pain) Qty: 100 RF: 2 cholecalciferol (vitamin D3) 5,000 unit tablet 5,000 unit PO QAM Qty: 30 RF: 0 duloxetine 30 mg capsule,delayed release(DR/EC) 60 mg PO DAILY RF: 0 spironolactone [Aldactone] 25 mg tablet 50 mg PO QAM RF: 0 lactulose 10 gram/15 mL (15 mL) solution 30 g PO BID 30 Days Qty: 2700 RF: 0 Changed gabapentin 300 mg capsule 300 mg PO HS Qty: 120 RF: 1 furosemide [Lasix] 20 mg tablet 40 mg PO QAM Qty: 90 RF: 1 Discontinued ondansetron 4 mg tablet,disintegrating 4 - 8 mg PO Q8H PRN (Reason: Nausea) Qty: 270 RF: 0 meclizine [Dramamine Less Drowsy] 25 mg tablet 25 mg PO TID PRN (Reason: Dizziness) Qty: 30 RF: 5 albuterol sulfate 90 mcg/actuation HFA aerosol inhaler 1 inh INHALATION QID PRN (Reason: SHORT OF BREATH) Qty: 8.5 RF: 1 Discharge Orders: Discharge Order (Routine); Ordered 12/01/20 Ordered By: Chava Grijalva/Other Patient Handouts: A1C, High Blood Sugar (Hyperglycemia), Hypoglycemia (Low Blood Sugar), Managing Type 2 Diabetes, 5 Steps for Eating Healthier Admission Data Admit Date/Time: 11/21/20 01:20 Attending Provider: Chava Santiago Admit Provider: Neo Pappas Primary Care Provider: Courtney Jules Other Providers: Jaylene Henley ; Bijan Robison Other Interventions: Discharge Summary Assessment (RN) Last Done: 12/01/20 13:08 Coding Level of Care Code D/C DAY MANAGEMENT >30 MINS Diagnoses Ileus K56.7 Bacteremia R78.81 Acute respiratory failure with hypoxia and hypercapnia J96.01; J96.02 COPD (chronic obstructive pulmonary disease) J44.9 Hyponatremia E87.1 Hypertension I10 Diabetes type 2, controlled E11.9 Hypothyroidism E03.9 Pulmonary nodule R91.1 Current tobacco use Z72.0 Chronic reflux esophagitis K21.0 Ambulatory dysfunction R26.2 Anemia D64.9 Anemia type: unspecified type
== END 2020-12-01 14:39 | DRG 190 ==
LOC: ED 22:23 → 2S 11-21 01:20 → SUATTDRO 11-21 01:20 → 2S 11-21 03:30 → 2W 11-22 15:38